=== PATIENT | male | born 1960 | race Caucasian/White ===

== ENCOUNTER 2023-07-19 08:36 | Outpatient (CLI) | payer MEDICARE, SELFPAY ==
--- NOTE | ~2023-07-19 | XR_ITS ---
EXAMINATION: XR lg joint inject/asp w image DATE: 07/19/2023 09:21 INDICATION: Right shoulder pain with osteoarthritis TECHNIQUE: A time-out was performed to verify the patient's name, date of , and procedure to b e performed. The procedure including the risks, benefits, and alternatives was discussed with the pat ient. Risks discussed included bleeding and infection. The patient understood the risks and agreed to proceed. The skin overlying the rotator cuff interval of the right glenohumeral joint was prepped a nd draped in usual sterile fashion. Anesthetic was administered with 1% lidocaine subcutaneously. A 22 G needle was advanced under fluoroscopic guidance into the joint. Injection of 1 mL of Omnipaque 240 confirmed intra-articular position of the needle. Subsequently, injectate consisting of 5 mm a 4:1 mixture of 1% lidocaine: 80 mg/mL Depo-Medrol for a total dosage of 80 mg Depo-Medrol was instill ed. Washout of contrast was seen confirming intra-articular administration. The needle was removed an d the entry site was cleaned and dressed. There were no immediate complications. Fluoroscopy exposur e time was 0.1 minutes. The total number of images was 2. Total DAP was 0.374 Gycm^2 FINDINGS: Real-time fluoroscopy demonstrates the needle in the right glenohumeral joint. Patient's pa in prior to procedure:12/06. Patient's pain following the procedure: 06/08. IMPRESSION: 1. Successful right glenohumeral joint injection of local anesthetic and steroid with decrease in the patient's presenting pain. Reviewed, dictated and finalized at location A. CE CLERK IMPRESSION: 1. Successful right glenohumeral joint injection of local anesthetic and steroi d with decrease in the patient's presenting pain.
== END 2023-07-19 08:37 | disposition home or self-care (01) ==
PROVIDERS: PCP Internal Medicine Infectious Disease; Visit Provider Orthopaedic Surgery
DX: M19.011 Primary osteoarthritis, right shoulder (principal)
CPT/HCPCS: 20610; 77002; J1040; Q9966

== ENCOUNTER 2024-07-03 16:49 | Inpatient (IN) | payer MEDICARE, SELFPAY ==
[2024-07-03] VITALS (20 sets, daily range): BP systolic 105–145; BP diastolic 60–94; PULSE 97–131; RESP 19–28; TEMP 36.9–37.2; O2SAT 91–100; BMI 27.3
--- NOTE | ~2024-07-03 | CT_ITS ---
EXAMINATION: CTA chest PE protocol DATE: 07/04/2024 21:31 HEARING AIDE TECHNICIAN INDICATION: Shortness of breath and COPD. Pulmonary embolus suspected clinically TECHNIQUE: Computed tomographic angiography (CTA) of the chest was performed with 100 mL Omnipaque-35 0 intravenous contrast. The dose-length product was 755.71 mGy-cm. Maximum intensity projection 3D-re constructions of the aorta and other arteries were constructed by the technologist on a separate work station. COMPARISON: Reference is made with a plain view of the chest performed approximately 24 hours earlier FINDINGS: No filling defect within the main or proximal pulmonary arteries. The thoracic aorta is nonaneurysmal and no dissection is present. The main pulmonary artery is not enlarged. The heart is enlarged, without pericardial effusion. Panlobular emphysematous disease identified with a bilateral upper lobe distribution. Multiple pulmonary cysts detected within the right lung base. Small right-sided pleural effusion with adjacent compressive atelectasis. Round atelectasis is also suspected. Left-sided pleural thickening. The remainder of the left hemithorax is primarily clear. IMPRESSION: No pulmonary embolus. No thoracic aortic dissection. Panlobular emphysematous change with additional chronic pulmonary disease. Reviewed, dictated and finalized at location A. ING AIDE TECHNICIAN
--- NOTE | ~2024-07-03 | XR_ITS ---
CHEST RADIOGRAPH CLINICAL HISTORY: SOB . COMPARISON: None available TECHNIQUE: Single portable view of the chest. FINDINGS The cardiomediastinal silhouette is unremarkable. Significant peribronchial thickening is identified bilaterally. Panlobular emphysematous disease is suspected. Asymmetric density within the right mid to lower lung field for which cross-sectional imaging (noncon trast enhanced CT examination of the chest) is suggested when patient is clinically able. IMPRESSION: Peribronchial thickening with panlobular emphysematous disease. No focal infiltrate or effusion. Asymmetric density within the right mid to lower lung field for which cross-sectional imaging (noncon trast enhanced CT examination of the chest) is suggested when patient is clinically able. Reviewed, dictated and finalized at location A. AIN STRETCHER ASSEMBLER IMPRESSION: Peribronchial thickening with panlobular emphysematous disease. No focal infiltrate or effusion. Asymmetric density within the right mid to lower lung field for which cross-sec tional imaging (noncontrast enhanced CT examination of the chest) is suggested when patient is clinically able.
--- NOTE | 2024-07-03 17:02 | ECG_ITS ---
Test Date: 2024-07-03 16:59:51 Measurements Intervals [place] Rate: 98 P: 0 LA: 0 QRS: 58 QRSD: 101 T: 78 QT: 332 QTc: 425 Interpretive Statements ATRIAL FLUTTER BORDERLINE T WAVE ABNORMALITY- ANTERIOR LEADS BASELINE ARTIFACT- I, III, AVL, AVF ABNORMAL ECG No previous ECG available for comparison Electronically Signed On 07-04-2024 13:36:17 SHELL TRIM OPERATOR by Blake Mathis D.O.
[2024-07-03 17:11] LABS: Basophils Percent Auto 0.3 % (0.2-1.2); Eosinophils Percent Auto 0.2 % (0-4.4); Hematocrit 38.5 % (42.0-52.0); Hemoglobin 11.6 g/dL (14.0-18.0); Immature Granulocyte Absolute 0.05 K/mm3 (0.00-0.031); Immature Granulocyte Percent A 0.6 % (0-0.5); Lymphocytes Absolute Auto 0.97 K/mm3 (0.9-3.2); Mean Corpuscular HGB Conc 30.1 g/dl (32-36); Mean Corpuscular Hemoglobin 30.9 pg (26-34); Mean Corpuscular Volume 102.7 fl (80-100); Mean Platelet Volume 10.5 fl (7.4-10.4); Monocytes Absolute Auto 0.5 K/mm3 (0.1-0.6); Monocytes Percent Auto 5.9 % (2.6-8.5); Neutrophils Absolute Auto 7.2 K/mm3 (1.3-6.7); Platelet Count Result 173 k/mm3 (150-375); Red Blood Count 3.75 M/mm3 (4.6-6.20); Red Cell Distribution Width 15.2 % (11.5-14.5); White Blood Count 8.8 K/mm3 (4.5-10.0)
[2024-07-03 17:13] LABS: Alveolar/Arterial O2 Gradient 119.5 mmHg; Base Excess ABG -0.4 mEq/l (+/-2.0); Fractional Inspired Oxygen 40 %; HCO3 ABG 27.4 mEq/l (22.0-26.0); Oxygen Content ABG 15.4 %vol (16.0-22.0); Oxygen Saturation ABG 96.3 % (95.0-100.0); Oxyhemoglobin 93.7 % THb (90.0-100.0); Total Hemoglobin 11.6 g/dL (12.0-18.0)
[2024-07-03] MEDS: methylPREDNISolone SOD SUCC 125 MG VIAL IV PUSH (17:13)
[2024-07-03 17:15] LABS: Device BIPAP; Modified Allen's Test Pass; PCO2 ABG 60.6 mmHg (35.0-45.0); Site Drawn RIGHT RADIAL; pH ABG 7.273 (7.350-7.450)
[2024-07-03] MEDS: MAGNESIUM SULF 2 GM/WATER 50ML 2 GM/50 ML BAG IVPB (17:15)
[2024-07-03] MEDS: IPRATROPIUM 0.5 MG/ALBUTEROL SULFATE 2.5 MG AMPUL.NEB 3 ML 6 ML INHALATION ×3 (17:15→17:53)
[2024-07-03 17:16] LABS: Expiratory Pressure 8 cmH2O; Inspiratory Pressure 16 cmH2O
--- OUTSIDE RECORDS SUMMARY | 2024-07-03 17:28 | XMS_ITS | Clinical Summary ---
Author Organization [facility] Address [address] [place] [address] Care Team Providers Care As400 Analyst Name Role Phone Shala Diaz MD Primary Care Provider Ben Lindsay MD Unavailable Source Comments [facility],non-owned Affiliates and Associated Physician Practices is amultiple site organization consisting of ambulatory clinics and hospital sitesin [place], [place], [place] and [place]. This disclosure is being madepursuant to the Care Everywhere program and may not contain all information available regarding this patient. Last updated 18.[facility] Allergies Active Allergy Reactions Criticality Noted Date Comments Piroxicam Other High 12/17/2013 Ulcer Other reaction(s): Other Ulcer Medications * Be aware that medications may not be up to date on this document. Alwaysverify current medications with the patient. Medication Sig Dispensed Refills Start Date End Date Status albuterol HFA (VENTOLIN HFA) 108 (90 Base) MCG/ACT inhaler Inhale 2 puffs by mouth as needed 06/25/2016 Active amLODIPine (NORVASC) 10 MG tablet Take 10 mg by mouth once daily Active budesonide-formot annalise (SYMBICORT) 160-4.5 MCG/ACT inhaler Inhale 2 puffs by mouth once daily Active furosemide (LASIX) 40 MG tablet Take 40 mg by mouth once daily 07/28/2019 Active ibuprofen (MOTRIN) 400 MG tablet Take 400 mg by mouth 2 times daily 07/30/2019 Active INCRUSE ELLIPTA 62.5 MCG/INH inhaler Inhale 1 puff by mouth once daily 07/28/2019 Active cyanocobalamin (VITAMIN B-12) 1000 MCG tabletIndications :Low serum vitamin B12 Take 1 tablet by mouth once daily 100 tablet 05/19/2020 Active buPROPion XL 24hr (WELLBUTRIN-XL) 300 MG tablet Take 300 mg by mouth 3 times daily 06/19/2020 Active losartan (COZAAR) 25 MG tablet Take 25 mg by mouth once daily 12/05/2020 Active EQ Aspirin Adult Low Dose 81 MG tablet Take 1 (one) tablet by mouth once daily 01/01/2023 Active atorvastatin (Lipitor) 80 MG tablet Take 1 (one) tablet by mouth once daily 02/20/2023 Active buPROPion HCl ER, XL, 450 MG TAKE 1 BY MOUTH ONCE DAILY 05/02/2023 Active buPROPion XL 24hr (Wellbutrin-XL) 150 MG tablet Active clopidogrel (plaVIX) 75 MG tablet Take 1 (one) tablet by mouth once daily 01/01/2022 Active cyclobenzaprine (Flexeril) 10 MG tablet TAKE 1 TABLET BY MOUTH THREE TIMES DAILY NEEDED FOR 14 DAYS Active Trulicity 0.75 MG/0.5ML injection INJECT 1 SYRINGE SUBCUTANEOUSLY ONCE A WEEK 05/08/2023 Active FLUoxetine (PROzac) 20 MG capsule 4 capsules Orally Once a day for 30 days Active gabapentin (Neurontin) 600 MG tablet 1 tablet Orally Three times a day for 30 days Active ketoconazole (Nizoral) 2 % shampoo APPLY TOPICALLY TO THE AFFECTED AREA(S) LATHER, LEAVE IN PLACE FOR 5 MINUTES AND THEN RINSE OFF WITH WATER ONCE DAILY 07/28/2021 Active Viagra 100 MG tablet Take 1 TABLET BY MOUTH 1 HOUR PRIOR TO SEXUAL ACTIVITY DIRECTED, NOT TO EXCEED 1 IN 24 HOURS. 05/10/2023 Active topiramate (Topamax) 200 MG tablet Take 1 (one) tablet by mouth 2 times daily Active Active Problems Problem Noted Date Diagnosed Date Pain in joint of right shoulder 05/19/2023 06/06/2023 Encounter for general adult medical examination with abnormal findings 05/20/2021 06/06/2023 Overview (06/06/2023): Patient gave verbal consent to be seen today via telehealth visit prior to performing said visit. Patient provided name and date of as identification of self. Provider reviewed with member Notice of Privacy Practices prior to performing this visit. Patient stated they understood the Notice of Privacy Practices. Last Assessment & Plan: Condition: worsening depression and loneliness Follow up in: if symptoms worsen or fail to improve Degeneration of intervertebral disc of lumbar re gion 05/20/2021 06/06/2023 Overview (06/06/2023): M51.36 - Other intervertebral disc degeneration, lumbar region Added by RAMP Historical Conditions Last Assessment & Plan: Condition: stable Follow up in: one month Bipolar 2 disorder 05/20/2021 06/06/2023 Overview (06/06/2023): Last Assessment & Plan: Condition: currently depressed Last mental health visit within the last 3 months Medications: Taking medications as prescribed If taking medications, do not stop treatment without consulting healthcare provider. If symptoms worsen or do not improve/stabilize, notify health care provider right away. If thoughts of harming self or others notify health care provider immediately &/or seek urgent/emergent care including calling Suicide Hotline ( ) or 612. Follow up in if symptoms worsen or fail to improve with Psychologist/Counselor/SupportGroup/Psychiatrist Atherosclerosis of aorta 05/20/2021 024 Overview (06/06/2023): Last Assessment & Plan: Condition: stable Follow up in: six months Chronic bilateral low back pain with sciatica 06/06/2023 Overview (06/06/2023): Last Assessment & Plan: Condition: stable Take pain medication as prescribed. Practice non-pharmacological pain reduction techniques/interventions such as, deep breathing exercises, massage, gel packs, if indicated to be safe by PCP. Monitor for worsening of back pain in combination with other signs and symptoms of worsening disease and see PCP as soon as possible. Follow up in: if symptoms worsen or fail to improve Feeling lonely 05/20/2021 06/06/2023 Overview (06/06/2023): Last Assessment & Plan: Condition: worsening Follow up in: if symptoms worsen or fail to improve Major depressive disorder 05/20/20212023 Overview (06/06/2023): Last Assessment & Plan: Condition: symptomatic Last mental health visit 2-3 months ago Medications: Taking medications as prescribed If taking medications, do not stop treatment without consulting healthcare provider. If symptoms worsen or do not improve/stabilize, notify health care provider right away. If thoughts of harming self or others notify health care provider immediately &/or seek urgent/emergent care including calling Suicide Hotline ( ) or 233. Follow up in if symptoms worsen or fail to improve with Psychologist/Counselor/SupportGroup/Psychiatrist and PCP Poor dentition 05/20/2021 06/06/2023 Overview (06/06/2023): Last Assessment & Plan: Condition: worsening Follow up in: one month Spinal stenosis, lumbar region with neurogenic c laudication 05/20/2021 06/06/2023 Overview (06/06/2023): Last Assessment & Plan: Condition: stable Take pain medication as prescribed. Practice non-pharmacological pain reduction techniques/interventions such as, deep breathing exercises, massage, gel packs, if indicated to be safe by PCP. Monitor for worsening of back pain in combination with other signs and symptoms of worsening disease and see PCP as soon as possible. Follow up in: one month Marijuana user 05/20/2021 06/06/2023 Overview (06/06/2023): Last Assessment & Plan: Condition: stable Follow up in: as needed Body mass index (BMI) of 40.0-44.9 in adult 04/3006/06/2023 Overview (06/06/2023): Last Assessment & Plan: Condition: worsening Educated patient on normal BMI range of 18.5 to 24.9 Advised to monitor nutrition to not exceed caloric needs, or as indicated by PCP in order to maintain a healthy weight and BMI. Advised to engage in aerobic physical activity, if indicated to be safe by PCP, to assist with maintaining a healthy weight and BMI. Advised to follow up with PCP to address nutrition as needed to assist with reaching or maintaining a healthy weight and BMI. Follow up in: six months Arteriosclerosis of coronary artery 05/10/2021 06/06/2023 Overview (06/06/2023): Last Assessment & Plan: Condition: stable Follow up in: six months Mixed conductive and sensori neural hearing loss of left ear with restricted hearing of right ear 02/13/2021 Sensorineural hearing loss ( SNHL) of right ear with restricted hearing of left ear 02/13/2021 Mixed conductive and sensori neural hearing loss of left ear with restricted hearing of right ear 02/13/2021 06/06/2023 Overview (06/06/2023): Last Assessment & Plan: Condition: stable Follow up in: three months Edema 12/05/2020 06/06/2023 Chronic obstructive lung disease 11/25/2020 06/06/2023 Left chronic otitis media 08/11/2019 ETD (Eustachian tube dysfunction), left 08/11/19 20 Centrilobular emphysema 07/29/2016 Essential (primary) hypertension 07/29/2016 Morbid obesity due to excess calories 07/29/2016 MATTHEW (obstructive sleep apnea) 07/29/2016 SOB (shortness of breath) 07/29/2016 Centrilobular emphysema 07/29/2016 06/06/19 24 Overview (06/06/2023): Last Assessment & Plan: Condition: symptomatic Reviewed trigger avoidance and reviewed proper use of inhalers and rescue medications. Reviewed concerning signs/symptoms and ER precautions. Follow up in: if symptoms worsen or fail to improve MATTHEW (obstructive sleep apnea) 07/29/2016 Overview (06/06/2023): Last Assessment & Plan: Condition: stable Follow up in: one month Morbid obesity due to excess calories 07/29/2016 06/06/2023 Overview (06/06/2023): Last Assessment & Plan: Condition: stable Co-morbidities: N/A BMI > 40 and Hypertension Follow up in: three months Chronic obstructive pulmonary disease 02/10/2015 06/06/2023 Obesity 02/10/2015 06/06/2023 Nicotine dependence, unspecified, uncomplicated 12/18/2013 06/06/2023 Sleep apnea, unspecified 12/18/2013 024 Former smoker, stopped smoking in distant past 0 12/17/2013 06/06/2023 Overview (06/06/2023): Last Assessment & Plan: Condition: stable Follow up in: as needed Primary hypertension 12/17/2013 06/06/2023 Overview (06/06/2023): Last Assessment & Plan: Condition: stable Discussed target blood pressure. Continue medication as prescribed from PCP/specialist. Take medications at the same time every day. Lifestyle modification advised: DASH diet, reduce stress/anxiety, discussed health weight management, activity as tolerated or advised from PCP, try to avoid alcohol and nicotine. Follow up in: one month Shortness of breath 12/17/2013 06/06/2023 Overview (06/06/2023): Last Assessment & Plan: Condition: stable, on exertion Follow up in: if symptoms worsen or fail to improve Resolved Problems Problem Noted Date Diagnosed Date Resolved Date Ear drum perforation, left 08/11/2019 0 02/13/2021 Cough 07/29/2016 10/04/2019 Cough 07/29/2016 06/06/2023 07/04/2023 Overview (06/06/2023): Last Assessment & Plan: Condition: stable Follow up in: three months Immunizations Name Administration Dates Next Due INFLUENZA VACCINE, TRIV. (AF LURIA, FLUZONE TRIVALENT; 6MO+) (IIV3) 02/23/2016 COVID ELISHA PRIMARY 18+YR 09/11/2020 INFLUENZA VACCINE 02/12/2020,06/23/2019 TDAP (7yrs+) 04/25/2017 iNFLUENZA VACCINE, RECOM-ACE, QUADR. (FLUBLOCK QUADRIVALENT; 18Y+) (RIV4) 03/19/2020 Social History Tobacco Use Types Packs/Day Years Used Date Smoking Tobacco: Former Smokeless Tobacco: Never Alcohol Use Standard Drinks/Week Comments Yes 0 (1 standard drink = 0.6 oz pur e alcohol) 2 beers/week, or one shot AUDIT-C Answer Date Recorded Frequency of Alcohol Consumption Never 08/10/2019 Average Number of Drinks Not on file 020 Frequency of Binge Drinking Not on file 07/28 Sex and Gender Information Value Date Recorded Sex Assigned at Not on file Gender Identity Not on file Sexual Orientation Not on file Last Filed Vital Signs Vital Sign Reading Time Taken Comments Blood Pressure 123/80 02/13/2021 3:53 PM CDT Pulse 90 02/13/2021 3:53 PM CDT Temperature 36.4 ??C (97.6 ??F) 09/12/2020 9:07 AM CD T Respiratory Rate 13 08/27/2020 4:30 PM CDT Oxygen Saturation 93% 08/27/2020 5:16 PM CDT Inhaled Oxygen Concentration - - Weight 139.7 kg (308 lb) 02/13/2021 3:53 PM CDT Height 185.4 cm (6' 1 ) 02/13/2021 3:53 PM CDT Body Mass Index 40.64 02/13/2021 3:53 PM CDT Plan of Treatment Health Maintenance Due Date Last Done Comments COLOGUARD (AGES 45-75) - COLON CA SCREENING 1958 COLON MONITORING 1958 COLONOSCOPY - COLON CA SCREENING 1958 CT COLONOGRAPHY - COLON CA SCREENING 1960 Colorectal Cancer Screening 1958 FIT - COLON CA SCREENING 1958 FLEX SIG - COLON CA SCREENING 1958 HEPATITIS C SCREENING 03/06/1976 PNEUMOCOCCAL VACCINE 50+ (1 of 2 - PCV) 1977 ZOSTER VACCINE (1 of 2) 2008 Respiratory Syncytial Virus (RSV) Vaccine Pt: or over 60 yrs (1 - Risk 60-74 years 1-dose series) 2018 AAA SCREENING 2023 COVID-19 VACCINE (2 - season) 2024 09/11/2020 INFLUENZA VACCINE (#1) 2024 0, 02/12/2020, 06/23/2019, Additional history exists MEDICARE AWV ? CALENDAR YEAR 2024 DTAP/TDAP/TD VACCINES (2 - Td or Tdap) 04/25/2027 04/25/2017 HEPATITIS B VACCINE Aged Out No longe r eligible based on patient's age to complete this topic HIB VACCINE Aged Out No longer eligi ble based on patient's age to complete this topic HPV VACCINE Aged Out No longer eligi ble based on patient's age to complete this topic MENINGOCOCCAL (Group B) VACCINE Aged Out No longer eligible based on patient's age to complete this topic MENINGOCOCCAL VACCINE Aged Out No ly selam eligible based on patient's age to complete this topic Care Teams As400 Analyst Relationship Specialty [place] [address] [place] [phone] PCP - General 08/10/19 Ben Lindsay MD [facility] [address] [address] Cardiovascular Disease 07/08/23
--- OUTSIDE RECORDS SUMMARY | 2024-07-03 17:28 | XMS_ITS | Clinical Summary ---
Author Organization [facility] Facility Address [address] [place] [id number] Care Team Providers Care Sales Manager [place] Name Role Phone Shala Diaz MD Primary Care Provider [phone] Social History Tobacco Use Types Packs/Day Years Used Date Smoking Tobacco: Never Assessed Sex and Gender Information Value Date Recorded Sex Assigned at Not on file Legal Sex Male 10:30 AM EDT Gender Identity Not on file Sexual Orientation Not on file Plan of Treatment Health Maintenance Due Date Last Done Comments Pneumococcal Vaccine: 65+ Years (1 of 2 - PCV) 1964 Colorectal Cancer Screening: Annual FOBT 2007 Colorectal Cancer Screening: Colonoscopy 2007 Colorectal Cancer Screening: Sigmoidoscopy 2007 Influenza Vaccine (#1) 2024 0, 02/12/2020, 06/23/2019 Hepatitis B Vaccine Aged Out No longe r eligible based on patient's age to complete this topic Insurance [employer] MCR ADV HMO ([id number]) Care Teams Sales Manager [place] Relationship Specialty Start Date End Date Shala Diaz MD [address] [place] [address] PCP - General Internal Medicine 08/08/23
--- OUTSIDE RECORDS SUMMARY | 2024-07-03 17:28 | XMS_ITS | Data Portability ---
Author Organization [place] [facility], Main Office Address [address] [place] [address] Care Team Providers Care Appian Bpm Developer Name Role Phone SARA RUEDA Primary Care Provider SARA RUEDA Referring Provider [phone] Assessment Encounter Date Assessment Date Assessment LastModified by Organization Details LastModified Time 05/20/2023 05/20/2023 63-year-old male came in today for evaluation of his right shoulder pain. He injured his shoulder 2 weeks ago. He was bent down cleaning on floor when he lost his balance and fell forward. He landed on the right elbow and feels like he jammed his right shoulder. He had quite a bit of pain initially but it has improved. He has been taking ibuprofen, he was given ketorolac from his primary for 5 days to help with the symptoms in his shoulder as well as back pain that he has chronically. He has noticed that the shoulder is doing much better at this point it is only mildly symptomatic. Patient x-rays done of the right shoulder from his primary care doctor which I reviewed. It shows that he has moderately severe glenohumeral joint narrowing. There is a small inferior spur off the articular surface. No definite superior migration. Patient states that he was not having any pain in the shoulder up until this latest injury. He did have an injury to his shoulder when he was younger. Physical exam: 63-year-old male alert pleasant. He has active elevation to 145 external rotation is to 75 internal rotation is to L4. He has no discomfort with range of motion. He has good strength with external rotation as well as abduction in the right shoulder. He has a negative abdominal compression test. 2+ radial pulse in the wrist. Neck range of motion is full without discomfort. Negative Spurling's maneuver. Biceps muscle belly has normal contour. Impression: Patient has moderately severe glenohumeral joint osteoarthritis. It was recently aggravated from a fall and jam injury to the shoulder joint. It is improving quite a bit. We talked about options. He is going to continue with anti-inflammator ies at this point. We did talk about fluoroscopic guided injection in the glenohumeral joint if his symptoms become more intolerable. At this point he feels that his symptoms are improving and he is going to wait and see if he continues to improve. If does not he can call and we can set up the injection over the phone. Otherwise we will see him back as needed. [email or web address] Not available 05/20/2023 12:43:28 06/21/2024 06/21/2024 Time spent with patient included: preparing to see patient by reviewing tests, obtaining and reviewing history, medical examination and evaluation, counseling and educating the patient, ordering medications and tests, documenting clinical information in EHR, independently interpreting results and communicating results to the patient for a total of 50 minutes. [email or web address] Not available 06/21/2024 16:18:22 Plan of Treatment Reminders Order Date Submit Date Provider Last Modified By Organization Details Last Modified Time Details Appointments Any 30 2024 01:30P M Deepthi Miller NP Not available Not available Not available Lab None recorded. Referral None recorded. Procedures None recorded. Surgeries None recorded. Imaging CT, chest, w/ contrast - Please call patient to schedule. 2024 025 [facility] ([facility]), [address] [place] [address], [address], 06/25/2024 13:10:46 Medication Orders Dulera 200 mcg-5 mcg/actua tion HFA aerosol inhaler 2024 025 [facility], [address] [place], [address], 06/21/2024 15:53:54 Incruse Ellipta 62.5 mcg/actua tion powder for inhalatio n 2024 025 [facility], [address] [place], [address], 06/21/2024 15:53:56 Patient TargetsNo targets recorded. Patient InstructionsNo instructions recorded. Reason for Referral None Reported. Results Created Date Observation Date Name Description Value Unit Range Abnormal Flag Note LastModifiedBy Organization Detail LastModifiedTime 10/15/19 21 07/23/2019 LDCT, chest , for lung cance r scree flaquita No observ ation record ed. [id number] Not Available 07/28/2022 16:25:50 10/15/19 21 03/08/2016 home sleep study No observ ation record ed. [id number] Not Available 07/28/2022 16:25:50 11/26/19 21 11/21/2020 US, echoc ardio gram, trans thora cic, compl ete, w/ color flow No observ ation record ed. [id number] [facility] (Imaging) [address] [place], [address], 07/28/2022 16:25:50 01/08/20 21 12/28/2020 BIPAP titra tion study * No observ ation record ed. [id number] [facility]- [facility] [address] [place], [address], 07/28/2022 16:25:50 05/10/20 23 04/25/2023 XR, shoul josefa No observ ation record ed. [email or web address] Not Available 04/29 10:56:31 07/19/19 24 07/19/2023 injec tion, shoul josefa, fluor o liliana nce (PROC ) No observ ation record ed. [facility] [address], [place], [address], 07/20/2023 13:12:55 06/20/19 25 06/15/2021 LDCT, chest , for lung cance r scree flaquita No observ ation record ed. [facility] Not Available 2024 17:23:13 06/20/19 25 10/27/2022 LDCT, chest , for lung cance r scree flaquita No observ ation record ed. [facility] Not Available 2024 17:23:13 06/20/19 25 05/25/2024 CT, angio gram, chest , w/ contr ast No observ ation record ed. [facility] Not Available 2024 17:23:13 06/20/19 25 05/31/2024 CT, angio gram, abdom en + pelvi s, w/wo contr ast No observ ation record ed. [facility] Not Available 2024 17:23:13 Result Notes None recorded. Problems Name Problem SNOMED Code Status Onset Date Resolution Date Notes Provider Name and Address Organization Details Recorded Time Chronic obstructiv e pulmonary disease 94294862 Active 2020 Not Available [facility] 3 16:25:15 Sleep apnea 85594507 Active 2019 Not Available [facility] 3 16:25:15 Pain of right shoulder joint 0983135000330 9100 Active 2022 DELVIS White null, [employer] 3 10:41:48 Localized, primary osteoarthr itis of the shoulder region 882468189 Active 2023 Sara Rolle CMA null, [employer] 4 16:47:53 Mediastina l lymphadeno lorraine 22742331 Active 2024 Deepthi Miller NP [address], [address] [facility], [place], [address] , [employer] 5 15:46:06 Pneumonia 584484352 Active 2024 Deepthi Miller NP [address], [address], [place], [address] , [employer] 5 15:51:57 Chronic atrial fibrillati on 272945947 Active 2024 Deepthi Miller NP [address], [address], [place], [address] , [employer] 5 16:22:30 Problem Notes None recorded. Procedures Surgical History Date Name Laterality Status Provider Name and Address Organization Details Recorded Time Knee Surgery completed Cara Landrum, DELVIS [facility] 05/20/2023 10:40:01 procedure on elbow completed Carateodoro Landrum DELVIS [facility] 05/20/2023 10:40:09 Ear completed Cara Landrum DELVIS [facility] 05/20/2023 10:40:19 Imaging Results Imaging Date Name Status LastModified by Organiz ation Details LastModified Time 07/23/2019 LDCT, chest, for lung cancer screening completed [id number] Information not available 07/28/2022 16:25:50 03/08/2016 home sleep study completed [id number] Information not available 07/28/2022 16:25:50 11/21/2020 US, echocardiogram , transthoracic, complete, w/ color flow completed [id number] [facility] (Imaging) [address] [place], [address], 07/28/2022 16:25:50 12/28/2020 BIPAP titration study* completed [id number] [facility]- [address] [place], [address], 07/28/2022 16:25:50 04/25/2023 XR, shoulder completed [email or web address] Information not available 05/10/2023 10:56:31 07/19/2023 injection, shoulder, fluoro guidance (PROC) completed [address] [place] [address], [address], 07/20/2023 13:12:55 06/15/2021 LDCT, chest, for lung cancer screening completed [facility] Information not available 06/20/2024 17:23:13 10/27/2022 LDCT, chest, for lung cancer screening completed [facility] Information not available 06/20/2024 17:23:13 05/25/2024 CT, angiogram, chest, w/ contrast completed [facility] Information not available 06/20/2024 17:23:13 05/31/2024 CT, angiogram, abdomen + pelvis, w/wo contrast completed [facility] Information not available 06/20/2024 17:23:13 Procedure Notes None recorded. Medical Equipment None Reported. Medications Name Sig Start Date Stop Date Status Note LastModified by Organization Details LastModified Time losartan 50 mg tablet TAKE 1 TABLET BY MOUTH ONCE DAILY 06/21 completed Not Available Not Available Not Available cyclobenzap rine 10 mg tablet TAKE 1 TABLET BY MOUTH THREE TIMES DAILY NEEDED FOR 14 DAYS active Not Available Not Available No t Available amoxicillin 500 mg capsule TAKE 1 CAPSULE BY MOUTH THREE TIMES DAILY UNTIL GONE 11/25 completed Not Available Not Available Not Available furosemide 40 mg tablet TAKE 1 TABLET BY MOUTH ONCE DAILY active Not Available Not Available No t Available neomycin-po lymyxin-hyd rocort 3.5 mg/mL-10,00 0 unit/mL-1 % ear solution 04/14 completed Not Available Not Available Not Available atorvastati n 80 mg tablet TAKE 1 TABLET BY MOUTH ONCE DAILY 05/20 completed Not Available Not Available Not Available gabapentin 600 mg tablet TAKE 1 TABLET BY MOUTH THREE TIMES DAILY 06/21 completed Not Available Not Available Not Available azithromyci n 250 mg tablet TAKE 2 TABLETS BY MOUTH ON DAY 1, AND THEN TAKE 1 TABLET BY MOUTH ONCE A DAY ON DAY 2 THROUGH DAY 5 05/20 completed Not Available Not Available Not Available ibuprofen 800 mg tablet TAKE 1 TABLET BY MOUTH EVERY 8 HOURS NEEDED FOR PAIN 05/12 completed Not Available Not Available Not Available ofloxacin 0.3 % eye drops 05/12 completed Not Available Not Available Not Available hydrocodone 5 mg-acetamin ophen 325 mg tablet TAKE 1 TABLET BY MOUTH EVERY 6 HOURS NEEDED FOR PAIN 05/12 completed Not Available Not Available Not Available prednisone 20 mg tablet TAKE 2 TABLETS BY MOUTH ONCE DAILY DIRECTED FOR 5 DAYS 06/21 completed Not Available Not Available Not Available dofetilide 125 mcg capsule 06/21 completed Not Available Not Available Not Available topiramate 25 mg tablet 04/14 completed Not Available Not Available Not Available diltiazem CD 360 mg capsule,ext ended release 24 hr TAKE 1 CAPSULE BY MOUTH ONCE DAILY active Not Available Not Available No t Available sulfamethox azole 800 mg-trimetho prim 160 mg tablet TAKE 1 TABLET BY MOUTH TWICE DAILY 05/12 completed Not Available Not Available Not Available aspirin 81 mg tablet,singh yed release TAKE 1 TABLET BY MOUTH ONCE DAILY 06/21 completed Not Available Not Available Not Available sildenafil 100 mg tablet Take 1 TABLET BY MOUTH 1 HOUR PRIOR TO SEXUAL ACTIVITY DIRECTED, NOT TO EXCEED 1 IN 24 HOURS. 06/21 completed Not Available Not Available Not Available ketorolac 10 mg tablet 06/21 completed Not Available Not Available Not Available ofloxacin 0.3 % ear drops INSTILL 5 DROPS INTO LEFT EAR TWICE DAILY UNTIL GONE 05/12 completed Not Available Not Available Not Available betamethaso ne valerate 0.1 % topical cream APPLY A THIN LAYER TOPICALLY ONCE DAILY TO AFFECTED AREAS 05/12 completed Not Available Not Available Not Available sulfacetami de sodium 10 % eye drops 04/14 completed Not Available Not Available Not Available baclofen 10 mg tablet 04/14 completed Not Available Not Available Not Available amlodipine 10 mg tablet TAKE 1 TABLET BY MOUTH ONCE DAILY 06/21 completed Not Available Not Available Not Available benzonatate 100 mg capsule Take 1 capsule 3 times a day by oral route. active Not Available Not Available No t Available pyridostigm ine bromide 60 mg tablet TAKE 1 2 (ONE HALF) TABLET BY MOUTH TWICE DAILY FOR 7 DAYS THEN 1 TWICE DAILY . PLEASE STOP TAKING TWO DAYS BEFORE SCHEDULED NERVE CONDUCTIO 10/09 completed Not Available Not Available Not Available losartan 25 mg tablet TAKE 1 TABLET BY MOUTH ONCE DAILY 06/21 completed Not Available Not Available Not Available ibuprofen 400 mg tablet TAKE 1 TABLET BY MOUTH ONCE DAILY NEEDED 05/12 completed Not Available Not Available Not Available gabapentin 300 mg capsule 04/14 completed Not Available Not Available Not Available topiramate 200 mg tablet TAKE 1 TABLET BY MOUTH TWICE DAILY active Not Available Not Available No t Available furosemide 20 mg tablet 04/14 completed Not Available Not Available Not Available levofloxaci n 750 mg tablet TAKE 1 TABLET BY MOUTH ONCE DAILY DIRECTED FOR 5 DAYS 06/21 completed Not Available Not Available Not Available methylpredn isolone 4 mg tablets in a dose pack TAKE BY MOUTH DIRECTED ON INSIDE OF PACKAGE 05/20 completed Not Available Not Available Not Available cefdinir 300 mg capsule 04/14 completed Not Available Not Available Not Available topiramate 100 mg tablet 04/14 completed Not Available Not Available Not Available fluoxetine 20 mg capsule TAKE 4 CAPSULES BY MOUTH ONCE DAILY 06/21 completed Not Available Not Available Not Available clotrimazol e 1 % topical cream 05/12 completed Not Available Not Available Not Available amoxicillin 875 mg-potassiu m clavulanate 125 mg tablet TAKE 1 TABLET BY MOUTH TWICE DAILY WITH MORNING MEAL AND WITH EVENING MEAL FOR 7 DAYS 10/09 completed Not Available Not Available Not Available Ventolin HFA 90 mcg/actuati on aerosol inhaler INHALE 2 PUFFS BY MOUTH EVERY 4 TO 6 HOURS NEEDED active Not Available Not Available No t Available oxycodone 5 mg tablet 05/12 completed Not Available Not Available Not Available neomycin-po lymyxin-hyd rocort 3.5 mg-10,000 unit/mL-1 % ear drops,susp 05/12 completed Not Available Not Available Not Available bupropion HCl XL 300 mg 24 hr tablet, extended release TAKE 1 TABLET BY MOUTH ONCE DAILY IN THE MORNING 11/25 completed Not Available Not Available Not Available bupropion HCl XL 150 mg 24 hr tablet, extended release active Not Available Not Available Not Available topiramate 50 mg tablet 04/14 completed Not Available Not Available Not Available [employer] USE DIRECTED 05/12 completed Not Available Not Available Not Available ibuprofen active Not Available Not Margarita ilable Not Available furosemide 06/21 completed Not Available Not Available Not Available Tylenol 06/21 completed Not Available Not Available Not Available gabapentin 06/21 completed Not Available Not Available Not Available aripiprazol e 2 mg tablet TAKE 1 TABLET BY MOUTH ONCE DAILY active Not Available Not Available No t Available Symbicort 160 mcg-4.5 mcg/actuati on HFA aerosol inhaler INHALE 2 PUFFS BY MOUTH TWICE DAILY active Not Available Not Available No t Available Dulera 200 mcg-5 mcg/actuati on HFA aerosol inhaler INHALE 2 PUFFS BY MOUTH TWICE DAILY active Not Available Not Available No t Available bupropion HCl XL 450 mg 24 hr tablet, extended release TAKE 1 TABLET BY MOUTH ONCE DAILY 05/12 completed Not Available Not Available Not Available Eliquis 5 mg tablet TAKE 1 TABLET BY MOUTH TWICE DAILY active Not Available Not Available No t Available Breo Ellipta 100 mcg-25 mcg/dose powder for inhalation INHALE 1 PUFF BY MOUTH ONCE DAILY DIRECTED 06/21 completed Not Available Not Available Not Available Trulicity 0.75 mg/0.5 mL subcutaneou s pen injector INJECT 1 SYRINGE SUBCUTANE OUSLY ONCE A WEEK 06/21 completed Not Available Not Available Not Available Incruse Ellipta 62.5 mcg/actuati on powder for inhalation INHALE 1 PUFF BY MOUTH ONCE DAILY 2024 active Not Available Not Available Not Avai lable Flublok Quad (PF) 180 mcg (45 mcg x 4)/0.5 mL IM syringe 10/09 completed Not Available Not Available Not Available Vitals Date Recorded Body mass index (BMI) Body mass index (BMI) Body height Body height Oxygen saturation Oxygen saturation in Arterial blood by Pulse oximetry Oxygen saturation Oxygen saturation in Arterial blood by Pulse oximetry Heart rate Heart rate Body temperature Body temperature Body weight Body weight Systolic blood pressure Diastolic blood pressure Systolic blood pressure Diastolic blood pressure Provider Name and Address Organization Details Last Updated DateTime 3 39.7 kg/m2 40.5 kg/m2 185.42 cm 185.42 cm 96 % 96 % 97 % 97 % 87 /min 77 /min 98.3 [degF] 97.8 [degF] 647186. 3 g 622255. 86 g 135 mm[Hg] 91 mm[Hg] 132 mm[Hg] 70 mm[Hg] Not Available [employer] 3 16:25:09 Date Recorded Body height Body mass index (BMI) Body weight Provider Name and Address Organization Details Last Updated DateTime 05/20/2023 182.88 cm 30 kg/m2 603698.91 g DELVIS White [place] [employer] [facility] [employer] 05/20/2023 10:47:33 Date Recorded Body weight Body temperature Heart rate Oxygen saturation Oxygen saturation in Arterial blood by Pulse oximetry Inhaled oxygen flow rate Systolic blood pressure Diastolic blood pressure Provider Name and Address Organization Details Last Updated DateTime 5 21314.6 2 g 97.7 [degF] 58 /min 96 % 96 % 2 L/min 108 mm[Hg] 62 mm[Hg] Jenny Basilio MA [employer] 5 15:32:29 Social History Question Answer Notes LastModified by Organizat ion Details LastModified Time Tobacco Smoking Status Former Smoker Not Available [facility] 07/28/2022 16:24:58 What Is Your Level Of Alcohol Consumption? None [id number] Information not available 07/28/2022 In The 14 Days Before Symptom Onset, Have You Had Close Contact With A Laboratory-confir med COVID-19 While That Case Was Ill? No [id number] Information not available 07/28/2022 In The 14 Days Before Symptom Onset, Have You Had Close Contact With A Person Who Is Under Investigation For COVID-19 While That Person Was Ill? No [id number] Information not available 07/28/2022 Which Illicit Or Recreational Drugs Have You Used? Marijuana [id number] Information not available 07/28/2022 Do You Or Have You Ever Used E-cigarettes Or Vape? Never Used Electronic Cigarettes [id number] Information not available 07/28/2022 What Was The Date Of Your Most Recent Tobacco Screening? 11/25/2020 [id number] Information not available 07/28/2022 Do You Or Have You Ever Used Smokeless Tobacco? Never Used Smokeless Tobacco [id number] Information not available 07/28/2022 Sex: Unknown Functional Status None recorded. Mental Status None recorded. Family History Relationship Description Onset Age of this Age Resolved Age Notes LastModified by Organization Details LastModified Time Father Family history of malignant neoplasm [email or web address] Not available 2022 10:39:45 Mother Family history of malignant neoplasm [email or web address] Not available 2022 10:39:45 Medical History Condition Response COPD Y ARTHRITIS Y USE OF BLOOD THINNERS Y Immunizations Vaccine Type Date Status Note Provider Nam e and Address Organization Details Recorded Time COVID-19 vaccine, vector-nr, rS-Ad26, PF, 0.5 mL 09/11/2020 completed Not Available [facility] 16:25:48 Influenza, high-dose, trivalent, PF 06/21/2024 completed Deepthi Miller NP [address] [facility], [facility] [address], [place], [address], [facility] [employer] [facility] 06/21/2024 16:17:26 Past Encounters Encounter ID Performer Location Encounter Start Date Encounter Closed Date Diagnosis/Indication Diagnosis SNOMED-CT Code Diagnosis ICD10 Code Diagnosis Note [id number] [facility] [address] [place] [address] 10/09/2020 00:00:00 10/09/2020 15:15:45 [id number] [facility] [address] [place] [address] 11/25/2020 00:00:00 11/25/2020 14:11:01 [id number] JUANPABLO Hoskins [facility] [address] [place] [address] 05/20/2023 10:06:56 05/20/2023 13:02:38 Pain of right shoulder joint 0339884019 9880489 M25.576 [id number] Deepthi Miller NP [facility] [place] [id number] [facility], [facility] [address] [place] [address] 06/21/2024 15:02:11 06/25/2024 15:52:26 Mediastinal lymphadenopathy 19630959 R59.[address]-most likely reactionar y from pneumonia- will repeat due to hx of heavy smoker 2.25 ppd x 35 years Chronic ob structive pulmonary disease 31397772 J44.9 CAT-34MMRC -4O2 2 L NC continousC ompliance with Incruse and Dulera (switched from Symbicort off formulary) and use discussed- rinse mouth afterUse Albuterol inhaler as neededWill hold off PFT and lab work till next follow-up due to recovery from pneumoniaE ncourage to maintain vaccines when due-influe nza todayF/u with PMD for any new labsF/u with me in 1 month-Symb icort use-will call if needs Albuterol (has some at home)Aware to call if any changes in symptoms or increase in use of Albuterol- severe symptoms ER Pneumonia 537575061 J18. 9 Admitted 05/25 for pneumonia- CT at that time showed mediastina l and hilar lymphadeno lorraine-will repeat CT to monitor-wi ll remain on O2 2 L NC Dependence on supplemental oxygen 4363477922 07 Z99.81 O2 2L NC Sleep apnea 03265834 G47 .30 ESS-2Lost weight and notes less issues with breathing- stopped using CPAP a couple of years agoO2 2 L NC at night Administra tion of influenza vaccine 13904870 Z23 Ex-heavy c igarette smoker (20-39/day) 045317360 Z87.891 Chronic at rial fibrillation 233618212 I48.20 on Eliquis and Cardizem Health Concerns Section Related Observation LastModified by Organization Detai ls LastModified Time None Recorded Concern Status LastModified by Organization Details LastModified Time None Recorded Advance Directives Directive None Recorded Payers Encounter Date Sequence Insurance Name Policy Number Policy Castellano Covered Member ID Castellano Member ID Guarantor Name 05/20/2023 1 [employer] - PRIME (MEDICARE REPLACEMENT/A DVANTAGE - HMO) [id number] Jose E Scaggs [id number] Jose Scaggs 05/20/2023 2 MEDICAID-[place]: [facility] Jose Scaggs [id number] Jose Scaggs 06/21/2024 1 [employer] - PRIME (MEDICARE REPLACEMENT/A DVANTAGE - HMO) [id number] Jose E Scaggs [id number] Jose Scaggs Notes Date Note Type Note Provider Name and Address Organization Details Recorded Time 06/21/2024 text/html COPDReported bypatient.Quality: symptoms worse with lying down Severity:very limiting; moderate; uses nebulizer/inhaler an average of 12 times/week lately; admitted to hospital 1 times/year Duration:has noted for years Onset/Timing:chron ic: suddenly much worse Context:cigarette smoking; occupational exposure; influenza vaccine 2024; pneumococcal pneumonia vaccine ? Modifying Factors:relieved with oxygen; worse in a supine position; worse with exertion Associated Symptoms:no snoring; no excessive daytime sleepiness; no arousals from sleep; no decrease in exercise capacity; no coughing up sputum; no fever; no weight loss; no depression;dyspnea exertional;decreas e in exercise capacity;fatigue;c oughing up sputum green;cough loose;wheezing exertional; less sputum since admission but continues to cough up a lot especially at nightNotes:Admitte d 05/25 for pneumonia and exacerbation COPD-went home on O2 2L NC2.25 ppd smoker 35 years+occupational exposure at [employer] hand smoke exposure as a child Deepthi Miller, MAKENZIE [address] [facility], [facility] [address], [place], [address], [facility] 06/21/2024 16:23:13
--- OUTSIDE RECORDS SUMMARY | 2024-07-03 17:28 | XMS_ITS | Referral Summary ---
Author Organization [facility] Address [address] [place] [address] Care Team Providers Care Press Room Supervisor Name Role Phone Shala Diaz MD Primary Care Provider Ben Lindsay MD Unavailable Source Comments [facility],non-owned Affiliates and Associated Physician Practices is amultiple site organization consisting of ambulatory clinics and hospital sitesin [place], [place]. This disclosure is being madepursuant to the Care Everywhere program and may not contain all information available regarding this patient. Last updated 18.[facility] Allergies Active Allergy Reactions Criticality Noted Date [...] including calling Suicide Hotline ( ) or 292. Follow up in if symptoms worsen or [...] including calling Suicide Hotline ( ) or 122. Follow up in if symptoms worsen or [...] 02/13/2021 3:53 PM CDT Plan of Treatment Not on file Care Teams Press Room Supervisor Relationship Specialty Start Date End Date Shala Diaz MD [address] [place] [address] [phone] PCP - General 08/10/19 Ben Lindsay MD [facility] [address] [address] Cardiovascular Disease 07/08/23
--- OUTSIDE RECORDS SUMMARY | 2024-07-03 17:29 | XMS_ITS | CONTINUITY OF CARE DOCUMENT ---
Author Name katina ambriz Address Unknown Organization [facility] Address [address] [place] [address] Phone [phone] Care Team Providers Care County Director Name Role Phone Neftali WHITNEY, Ben Unavailable SARA RUEDA MD Unavailable SARA RUEDA MD Unavailable PROBLEMS Condition Status Date Provider Notes Shortness of breath active Bne Lindsay MD Sleep apnea severe starting BIPAP active Ben Lindsay MD HTN essential--echo ef 61%, LVH, 11/2020 active Jose Cannon Tobacco abuse 40 pack years , quit 2013 active Ben Lindsay MD Obesity active Ben Lindsay MD COPD severe obstruction on PFTS 12/11 active Ben Lindsay MD Chest pain-t abnormal stress nuclear 01/2021 completed - Ben Lindsay MD Edema-BLE active Ben Lindsay MD CAD difffuse dital circ, 50% prox, 30% mid RCA, 30% mid LAD, nl ef, mild pulm HTN , cath 03/2021 active Ben Lindsay MD Diastolic CHF active Ben Lindsay MD Atrial fibrillation active Jazmín Ventimigl ia [employer] ENCOUNTERS Date Type Provider Location Encounter Diag nosis - In-person encounter Office Visit Ben Lindsay MD [facility] Atrial fibrillation - In-person encounter Office Visit Ben Lindsay MD [facility] - In-person encounter Office Visit Ben Lindsay MD [facility] HTN essential--echo ef 61%, LVH, iastolic CHF - In-person encounter Office Visit Ben Ordoñez In Patient Chest pain-t abnormal stress nuclear AD difffuse dital circ, 50% prox, 30% mid RCA, 30% mid LAD, nl ef, mild pulm HTN , cath 03/2021 - In-person encounter Office Visit Ben Lindsay MD [facility] - In-person encounter Office Visit Ben Lindsay MD [facility] Edema-BLE - In-person encounter Office Visit Ben Lindsay MD [facility] Shortness of breathSleep apnea severe starting BIPAPChest pain-t abnormal stress nuclear 01/2021 - In-person encounter Office Visit Ben Lindsay MD [facility] Shortness of breathTobacco abuse 40 pack years , quit 2013ObesityCOPD severe obstruction on PFTS 12/11 - In-person encounter Office Visit Ben Lindsay MD [facility] - In-person encounter Office Visit Ben Lindsay MD [facility] Shortness of breathSleep apnea severe starting BIPAPHTN essential--echo ef 61%, LVH, 11/2020Tobacco abuse 40 pack years , quit 2013 VITAL SIGNS Date Observation Value Provider Body Mass Index (Ratio) 29.27 kg/m2 Clifford Lindsay MD blood pressure, diastolic 120 mm[Hg] Eligio Bond blood pressure, systolic 174 mm[Hg] Kasia [facility] pulse rate 100 /min [facility] Inhaled O2 2 L/min Mack [facility] oxygen saturation, oximetry 96 % Mack [facility] respiratory rate E&M 24 /min Mack [facility] weight E&M 228 [lb_av] Mack [facility] blood pressure, cuff size regular Eligio pimentel [facility] height E&M 74 [in_i] Mack [facility] Body Mass Index (Ratio) 34.53 kg/m2 Clifford Lindsay MD blood pressure, diastolic 81 mm[Hg] Li nkLog blood pressure, systolic 123 mm[Hg] Jeanie kLogswati blood pressure, diastolic 81 mm[Hg] St janie Salo blood pressure, systolic 123 mm[Hg] Sta freddy Leong oxygen saturation, oximetry 95 % Yolanda Salo pulse rate 78 /min Yolanda Salo weight E&M 269 [lb_av] Yolanda Salo respiratory rate E&M 16 /min Yolanda D vivien height E&M 74 [in_i] Yolanda Salo Body Mass Index (Ratio) 40.95 kg/m2 Clifford Lindsay MD blood pressure, diastolic 76 mm[Hg] Sa ra Loaiza blood pressure, systolic 134 mm[Hg] Poncho a Loaiza oxygen saturation, oximetry 94 % Jenny Loaiza respiratory rate E&M 19 /min Jenny Si ms pulse rate 88 /min Jenny Loaiza blood pressure, cuff size regular Sa ra Loaiza weight E&M 319 [lb_av] Jenny Loaiza height E&M 74 [in_i] Jenny Loaiza height E&M 74 [in_i] Damaris cristina blood pressure, cuff size large Sandra Bray blood pressure, diastolic 60 mm[Hg] Sandra Bray blood pressure, systolic 110 mm[Hg] [facility], oximetry 96 % Damaris Katarina pulse rate 91 /min Damaris Geiger cristina Body Mass Index (Ratio) 2.22 kg/m2 Clifford Lindsay MD blood pressure, cuff size regular Cy maxwell Feliciano blood pressure, diastolic 80 mm[Hg] Cy maxwell Feliciano blood pressure, systolic 134 mm[Hg] Sonal savannah Feliciano pulse rate 91 /min Aedsavannah Yarbroughbel l oxygen saturation, oximetry 95 % Ade Feliciano respiratory rate E&M 20 /min Ade Feliciano weight E&M 317 [lb_av] Ade Campbel l height E&M 317 [in_i] Ade Campbel l Body Mass Index (Ratio) 40.95 kg/m2 Clifford Lindsay MD blood pressure, diastolic 78 mm[Hg] Li nkLogic blood pressure, systolic 144 mm[Hg] Jeanie kLogic blood pressure, diastolic 78 mm[Hg] radha Jose Luis blood pressure, systolic 144 mm[Hg] She donnell Jose Luis oxygen saturation, oximetry 94 % Annika Jose Luis respiratory rate E&M 18 /min Belem killian Amaya pulse rate 84 /min Shertamara Anna cuellar weight E&M 319 [lb_av] Sherbonitaitha Craw cuellar height E&M 74 [in_i] Sherkeitha Craw cuellar blood pressure, diastolic 93 mm[Hg] Me juancarlos Basilio blood pressure, systolic 137 mm[Hg] Kia elmer Richmond pulse rate 88 /min Bridgette Basilio oxygen saturation, oximetry 95 % Bridgette Richmond respiratory rate E&M 17 /min Bridgette Richmond Body Mass Index (Ratio) 40.70 kg/m2 [facility] weight E&M 317 [lb_av] Bridgette Richmond blood pressure, diastolic 100 mm[Hg] Mo juancarlos [place] blood pressure, systolic 169 mm[Hg] Kia payne [place] Body Mass Index (Ratio) 38 kg/m2 [facility] pulse rate 78 /min Bridgette Richmond oxygen saturation, oximetry 98 % Bridgette Richmond respiratory rate E&M 16 /min Bridgette Richmond weight E&M 296 [lb_av] Bridgette Richmond Body Mass Index (Ratio) 37.49 kg/m2 [facility] blood pressure, diastolic 101 mm[Hg] Mo juancarlos [place] blood pressure, systolic 141 mm[Hg] Kia payne [place] pulse rate 74 /min Bridgette Richmond oxygen saturation, oximetry 96 % Bridgette Richmond respiratory rate E&M 16 /min Bridgette Richmond weight E&M 292 [lb_av] Bridgette Richmond height E&M 74 [in_i] Bridgette Richmond ALLERGIES Allergy Name Onset Date Reaction Criticality Status FELDENE High Criticality active RESULTS Date Observation Value Provider Reference Range Interpretation Location microalbumin/creatin ine ratio, urine <16 mg/g creat [facility] 0-29 microalbumin, random, urine <3.0 ug/mL [facility] Not Estab. creatinine, random, urine 19.3 mg/dL [facility] Not Estab. pro brain natriuretic peptide 264 pg/mL [facility] 0-210 High c-reactive protein, quantitative, serum 1.33 mg/L [facility] 0.00-3.00 hemoglobin A1C, blood, as % of total hemoglobin 5.1 % [facility] 4.8-5.6 lipoprotein, beta, serum, point, quantitative, calculated 79 mg/dL [facility] 0-99 HDL cholesterol, serum 56 mg/dL [facility] >39 triglyceride, serum, random 86 mg/dL [facility] 0-149 cholesterol, serum 151 mg/dL [facility] [phone]/07/ 08 alanine aminotransferase (SGPT), serum 14 1/L [facility] 0-44 aspartate aminotransferase (SGOT), serum 16 1/L [facility] 0-40 alkaline phosphatase, serum 103 1/L [facility] 44-121 bilirubin, serum, total 0.6 mg/dL [facility] 0.0-1.2 albumin/globulin ratio, serum 1.7 [facility] 1.2-2.2 globulin, serum 2.6 [facility] 1.5-4.5 albumin, serum 4.5 g/dL [facility] 3.8-4.8 protein, total, serum 7.1 g/dL [facility] 6.0-8.5 calcium, serum 9.4 mg/dL [facility] 8.6-10.2 carbon dioxide, venous blood 23 mmol/L [facility] 20-29 chloride, serum 101 mmol/L [facility] 96-106 potassium, serum 4.7 mmol/L [facility] 3.5-5.2 sodium, serum 137 mmol/L [facility] 411-173 6932/07/ 08 urea nitrogen/creatinine ratio, serum 14 [facility] 10-24 creatinine, serum 1.55 mg/dL [facility] 0.76-1.27 High urea nitrogen, blood 21 mg/dL [facility] 8-27 blood glucose, random 88 mg/dL [facility] 70-99 platelet count 208 X10E3/UL [facility] 203-682 3778/07/ 08 red blood cell distribution width 12.5 % [facility] 11.6-15.4 mean corpuscular hemoglobin concentration, RBC 33.3 G/DL [facility] 31.5-35.7 mean corpuscular hemoglobin, RBC 30.7 pg [facility] 26.6-33.0 mean corpuscular volume, RBC 92 fL [facility] 79-97 hematocrit, blood 44.7 % [facility] 37.5-51.0 hemoglobin, blood 14.9 g/dL [facility] 13.0-17.7 erythrocyte (RBC) count 4.85 X10E6/UL [facility] 4.14-5.80 leukocyte count, blood 7.5 X10E3/UL [facility] 3.4-10.8 platelet count 262 10*3/mm3 Salazar Vo hematocrit, blood 40.0 % Salazar Vo thyroid stimulating hormone, serum 1.430 u[IU]/mL Salazar Vo alanine aminotransferase (SGPT), serum 27 1/L Salazar Vo aspartate aminotransferase (SGOT), serum 17 1/L Salazar Vo blood glucose, random 112 mg/dL Salazar Vo creatinine, serum 0.96 mg/dL Salazar Vo urea nitrogen, blood 24 mg/dL Salazar Vo potassium, serum 4.0 mmol/L Salazar Vo sodium, serum 138 mmol/L Salazar Vo HISTORY OF MEDICATION USE Medication Status Instructions Dates Provider Indications Com ments Cardizem CD 360 mg capsule,extende d release 24hr active Take 1 capsule by mouth once a day Jazmín Ventimiglia [employer] Eliquis 5 mg tablet active TAKE 1 TABLET BY MOUTH TWICE DAILY Jazmín Ventimiglia [employer] losartan 50 mg tablet active TAKE 1 TABLET BY MOUTH EVERY DAY Jazmín ROBERTSON Trulicity 0.75 mg/0.5 mL pen injector completed INJECT 1 SYRINGE SUBCUTANEOUSLY ONCE A WEEK - Mack Bond Trulicity 0.75 mg/0.5 mL pen injector completed INJECT 1/2 (ONE-HALF) ML SUBCUTANEOUSLY ONCE A WEEK - Huey Calderon Trulicity 0.75 mg/0.5 mL pen injector completed INJECT 0.5 ML SUBCUTANEOUSLY ONCE A WEEK - Nan Beavers losartan 25 mg tablet completed Take 1 tablet by mouth once daily - Mack Deltamaddison losartan 25 mg tablet completed Take 1 tablet by mouth once a day Take 1 tablet by mouth once daily - Vickie Jimenez aspirin 81 mg tablet,delayed release (DR/EC) completed Take 1 tablet by mouth once a day Take 1 tablet by mouth once daily - Mack Bond losartan 25 mg tablet completed Take 1 tablet by mouth once daily - Shanda Wilson Trulicity 0.75 mg/0.5 mL pen injector completed Inject 0.5 ml subcutaneously once a week - Vickie Jimenez atorvastatin 80 mg tablet completed Take 1 tablet by mouth once daily - Mack Bond aspirin 81 mg tablet,delayed release (DR/EC) completed Take 1 tablet by mouth once daily - Shanda Wilson clopidogrel 75 mg tablet completed Take 1 tablet by mouth once daily - Mack Bond Plavix 75 mg tablet completed Take 1 tablet by mouth once a day - Damaris Bray losartan 25 mg tablet completed Take 1 tablet by mouth once a day - Vickie Jimenez MEDROL 4 MG ORAL TABLET THERAPY PACK completed use as directed - Annika Amaya GILPHEX TR 10-388 MG ORAL TABLET completed po bidx 7 days - Sherwin Singh RN AZITHROMYCIN 500 MG ORAL TABLET completed po daily x 5 days - Nevinmateo Amaya Tudorza Pressair 400 mcg/actuation aerosol powdr breath activated active twice a day Bridgette Richmond Symbicort 160-4.5 mcg/actuation HFA aerosol inhaler active 1 puff twice a day Bridgette Richmond NALTREXONE HCL 50 MG ORAL TABLET completed once daily - Annika Amaya bupropion HCl 150 mg tablet sustained-relea se 12 hr completed tablet by mouth twice a day - Mack Bond amlodipine 10 mg tablet completed 0.5 tablet by mouth once a day - Jazmín Sowglayush [facility] CATAPRES 0.1 MG ORAL TABLET completed twice daily - Bridgette Richmond Ventolin HFA 90 mcg/actuation HFA aerosol inhaler active 2 puff every four to six hours Bridgette Richmond gabapentin 600 mg tablet completed tablet by mouth three times a day - Mack Bond SERTRALINE HCL 100 MG ORAL TABLET completed 2 tabs once daily - Bridgette Richmond [facility] IBUPROFEN 200 MG ORAL TABLET completed 2-4 TABS 4-6 TIMES DAILY - Bridgette Richmond Lasix 40 mg tablet active tablet by mouth once a day Bridgette Richmond TOPAMAX 100 MG ORAL TABLET completed ONCE DAILY - Bridgette Richmond PROZAC 40 MG ORAL CAPSULE completed TWICE DAILY - Bridgette Richmond SOCIAL HISTORY Date Observation Value Provider personal history of marijuana use yes Jazmín Rockymiglia [employer] drug use no Jazmín Ventimig jos [facility] alcohol use no Jazmín Ventimig jos [facility] smoking, year quit 2013 Jazmín florimkaryn [facility] cigarette use yes Jazmín Ventimi glia [employer] smoking status Former smoker Jazmín bhardwajlia [facility] social history reviewed E&M revi ewed - no changes required Ben Lindsay MD social history reviewed E&M revi ewed - no changes required Jose Cannon Underweight no Ben Lindsay MD social history E&M Smoking Histo ry: Tyler figueroa is a former smoker. Damaris Bray social history reviewed E&M revi ewed - no changes required Damaris Bray social history E&M S moking History: Tyler figueroa is a former smoker. Ben Lindsay MD social history reviewed E&M revi ewed - no changes required Ben Lindsay MD Underweight yes Ben Lindsay MD smoking, year quit 2013 Ade olivera cigarette use yes Ade Harley beck smoking status Former smoker Ade Yarbrough kalyn number of grandchildren Ben Lindsay MD T home Lindsay MD social history reviewed E&M revi ewed - no changes required Ben Lindsay MD social history E&M S moking History: Tyler figueroa is a former smoker. Ben Lindsay MD smoking, year quit 2013 Bhavin Amaya cigarette use yes Annika cisneros smoking status Former smoker Nevinpreciouskatie mohamud social history reviewed E&M revi ewed - no changes required Bridgette Richmond smoking, year quit 2013 Bridgette Guerra cigarette use yes Bridgette Richmond smoking status Former smoker Bridgette Morillo nn social history reviewed E&M revi ewed - no changes required Ben Lindsay MD smoking, year quit 2013 Bridgette Garduno Charlie cigarette use yes Bridgette Richmond smoking status Former smoker Bridgette king smoking, year quit 2013 Bridgette Garduno Quintinfernando cigarette use yes Bridgette Richmond smoking status Former smoker Bridgette Morillo nn FUNCTIONAL STATUS Date Observation Value Provider HRA, CV Assess/Plan, Angina (inactive) Management Plan continue current therapy Jazmín Shikha [employer] HRA, CV Assess/Plan, Angina (inactive) Management Plan continue current therapy Jose Cannon FAMILY HISTORY Family Member Condition Father Negative FH of Coron renee Artery Disease INSURANCE PROVIDERS Payer name Policy type / Coverage type [place] red libertarian ID [employer] MEDICARE GOLD ADVANTAGE HMO Medicare [id number] ADVANCE DIRECTIVES Name Date DISCUSSED - NO DECISION MADE TREATMENT PLAN Date Name Performer [id number],SJose i [id number],SJose i [id number],SJose i [id number],S, Jose Serrano i [id number],SJose i [id number],SJose i [id number],BBen MD [id number],BBen MD [id number],SBen MD [id number],SBen MD [id number],Ben Page MD [id number],Ben Guillaume MD [id number],S, Ben Lindsay MD [id number],B, Ben Lindsay MD [id number],S, Ben Lindsay MD [id number],S, Ben Lindsay MD [id number],S, Ben Lindsay MD [id number],S, Ben Lindsay MD [id number],S, Ben Lindsay MD [id number],S, H is updated medication list for this problem includes: Losartan Potassium 25 Mg Oral Tablet (Losartan potassium) ..... Take one tablet daily Amlodipine Besylate 10 Mg Oral Tablet (Amlodipine besylate) ..... 1/2 tab once daily Lasix 40 Mg Oral Tablet (Furosemide) ..... Once daily Ben Lindsay MD [id number],S,m ask giving some issues: slobbering W ill refer to pulmonary for lung evaluation Ben Lindsay MD [id number],W, H is updated medication list for this problem includes: Amlodipine Besylate 10 Mg Oral Tablet (Amlodipine besylate) ..... 1/2 tab once daily Ben Lindsay MD [id number],S,s lightly elevated B P today: 144/78 P rior BP: 137/93 (03/16/2016) Labs Reviewed: C reat: 0.96 (08/09/2013) Ben Lindsay MD Cardiology:rate unco ntrolled in 100s today in office W as in NSR at time of discharge last month post cardioversion w as on tikosyn, cardizem and Eliquis at that time W ill resume cardizem and eliquis W ill have him follow with Dr. Pena T he following medications were removed from the medication list: Clopidogrel 75 Mg Tablet (Clopidogrel) ..... Take 1 tablet by mouth once daily Aspirin 81 Mg Tablet,delayed Release (dr/ec) (Aspirin) ..... Take 1 tablet by mouth once a day take 1 tablet by mouth once daily T his visit has been a part of the consistent, comprehensive, and ongoing management of the chronic medical condition(s) listed above for the patient. Ben Lindsay MD Cardiology: H is updated medication list for this problem includes: Ventolin Hfa 90 Mcg/actuation Hfa Aerosol Inhaler (Albuterol sulfate) ..... 2 puff every four to six hours Tudorza Pressair 400 Mcg/actuation Aerosol Powdr Breath Activated (Aclidinium bromide) ..... Twice a day Symbicort 160-4.5 Mcg/actuation Hfa Aerosol Inhaler (Budesonide-formoterol) ..... 1 puff twice a day [facility] Cardiology:cessation encouraged [facility] Cardiology: T he following medications were removed from the medication list: Amlodipine 10 Mg Tablet (Amlodipine) ..... 0.5 tablet by mouth once a day Clopidogrel 75 Mg Tablet (Clopidogrel) ..... Take 1 tablet by mouth once daily Aspirin 81 Mg Tablet,delayed Release (dr/ec) (Aspirin) ..... Take 1 tablet by mouth once a day take 1 tablet by mouth once daily His updated medication list for this problem includes: Cardizem Cd 360 Mg Capsule,extended Release 24hr (Diltiazem hcl) ..... Take 1 capsule by mouth once a day [facility] Cardiology:BP above goal M eds adjusted T he following medications were removed from the medication list: Amlodipine 10 Mg Tablet (Amlodipine) ..... 0.5 tablet by mouth once a day Aspirin 81 Mg Tablet,delayed Release (dr/ec) (Aspirin) ..... Take 1 tablet by mouth once a day take 1 tablet by mouth once daily Losartan 25 Mg Tablet (Losartan) ..... Take 1 tablet by mouth once daily His updated medication list for this problem includes: Cardizem Cd 360 Mg Capsule,extended Release 24hr (Diltiazem hcl) ..... Take 1 capsule by mouth once a day Losartan 50 Mg Tablet (Losartan) ..... Take 1 tablet by mouth every day Lasix 40 Mg Tablet (Furosemide) ..... Tablet by mouth once a day Darfur Magijose [facility] Cardiology:rate unco ntrolled in 100s today in office W as in NSR at time of discharge last month post cardioversion w as on tikosyn, cardizem and Eliquis at that time W ill resume cardizem and eliquis W ill have him follow with Dr. Pena T he following medications were removed from the medication list: Clopidogrel 75 Mg Tablet (Clopidogrel) ..... Take 1 tablet by mouth once daily Aspirin 81 Mg Tablet,delayed Release (dr/ec) (Aspirin) ..... Take 1 tablet by mouth once a day take 1 tablet by mouth once daily [facility] Cardiology:Appears d ecompensated in setting of afib with rvr p atient has declined admission to hospital w ill contiue diuresis and update labs W ill resume meds for afib Darfur Rockyharshadjose [facility] Cardiology Jose Ahmedzai Cardiology Jose Ahmedzai Cardiology Jose Ahmedzai Cardiology Jose Ahmedzai Cardiology Jose Ahmedzai Cardiology Jose Donmedzai Cardiology Ben Lindsay MD Cardiology Ben Lindsay MD Cardiology Ben Lindsay MD Cardiology Ben Lindsay MD Cardiology Ben Lindsay MD Cardiology Ben Lindsay MD Cardiology follow up Ben singh MD Cardiology follow up Ben singh MD Cardiology follow up Ben singh MD Cardiology follow up Ben signh MD Cardiology follow up Ben singh MD Cardiology Ben Lindsay MD Cardiology Ben Lindsay MD Cardiology: H is updated medication list for this problem includes: Losartan Potassium 25 Mg Oral Tablet (Losartan potassium) ..... Take one tablet daily Amlodipine Besylate 10 Mg Oral Tablet (Amlodipine besylate) ..... 1/2 tab once daily Lasix 40 Mg Oral Tablet (Furosemide) ..... Once daily Ben Lindsay MD Cardiology:mask gieligio ng some issues: slobbering W ill refer to pulmonary for lung evaluation Ben Lindsay MD Cardiology: H is updated medication list for this problem includes: Amlodipine Besylate 10 Mg Oral Tablet (Amlodipine besylate) ..... 1/2 tab once daily Ben Lindsay MD Cardiology:slightly elevated B P today: 144/78 P rior BP: 137/93 (03/16/2016) Labs Reviewed: C reat: 0.96 (08/09/2013) Ben Lindsay MD Cardiology Ben Lindsay MD Cardiology Ben Lindsay MD Cardiology Ben Lindsay MD Cardiology Ben Lindsay MD Cardiology Ben Lindsay MD Cardiology:get formal sleep stud y Ben Lindsay MD Cardiology Ben Lindsay MD Cardiology:ecigs Ben Lindsay MD Cardiology:using inhaler Ben Lindsay MD Cardiology:ou tof meds, picked u p today Ben Lindsay MD :fixed inferior wall defect stress test 2014 e cho 2014 , nllv fn , diastolic dysfn, no valvular abnormalities Ben Lindsay MD NEW PATIENT: H is updated medication list for this problem includes: Lasix 40 Mg Tabs (Furosemide) ..... Once daily BP today: 141/101 Ben Lindsay MD Date Name PROBNP, N TERMINAL BASIC METABOLIC PANE L W/EGFR CBC (H/H, RBC, INDIC ES, WBC, PLT) PROBNP, N TERMINAL Microalb/Creatinine Urine, Random HEMOGLOBIN A1c LIPID PANEL CRP, high sensitivit y COMPREHENSIVE METABO LIC PANEL, W/EGFR PROTHROMBIN TIME WIT H INR LIPID PANEL CBC (INCLUDES DIFF/P LT) BASIC METABOLIC PANE L W/EGFR Stress Regadenoson DLCO Order - [id number] FRC Order - [id number] FVC Order - [id number] HISTORY OF PROCEDURES Procedure Date Procedure Name Provider Procedure Notes S tatus Complex e/m visit add on Sam Elkins MD completed EKG Ben Lindsay MD completed EKG Ben Lindsay MD completed Stress EKG Dawit Bailon MD completed Regadenoson, 4 units Estela decker MD completed Cardiolite, 2 units Estela cardoza MD completed SPECT Images Estela Ortega MD completed SNOMED-CT: [id number] Physical Exam, Performed: Pulse Exam of Foot Ben Lindsay MD completed EKG Ben Lindsay MD completed SNOMED-CT: [id number] Current Medications Documented Ben Lindsay MD completed BLOOD COUNT HEMOGLOBIN Ben Lindsay MD completed EKG Ben Lindsay MD completed
--- OUTSIDE RECORDS SUMMARY | 2024-07-03 17:29 | XMS_ITS | Clinical Summary ---
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 Active amLODIPine (NORVASC) 10 MG Tablet Take 10 mg by mouth daily. Active Phenylephrine-G uaifenesin (GILPHEX TR) 10-388 MG Tablet Take by mouth. Activ e azithromycin (ZITHROMAX) 500 MG Tablet Take 500 mg by mouth daily. Reported on 07/29/2016 Active Aclidinium [place] (TUDORZA PRESSAIR IN) take by inhalation. Active budesonide-form oterol fumarate (SYMBICORT) 160-4.5 MCG/ACT Aerosol take 2 Puffs by inhalation 2 times daily. Active naltrexone (DEPADE) 50 MG Tablet Take 50 mg by mouth daily. Active buPROPion (WELLBUTRIN) 150 MG XL tablet Take 150 mg by mouth every morning. Active gabapentin (NEURONTIN) 600 MG Tablet 7 Active furosemide (LASIX) 40 MG Tablet 7 Active BuPROPion HCl 200 MG TABLET SR 12 HR 7 Active VENTOLIN HFA 108 (90 Base) MCG/ACT Aerosol Solution 7 Active azithromycin (ZITHROMAX Z-MARQUISE) 250 MG Tablet 2 tab(s) daily for 1 day, then 1 tab(s) daily for days 2-5. 6 Tab 7 Active Active Problems Problem Noted Date Diagnosed Date Centrilobular emphysema 07/29/2016 SOB (shortness of breath) 07/29/2016 Cough 07/29/2016 MATTHEW (obstructive sleep apnea) 07/29/2016 Morbid obesity due to excess calories 07/29/2016 Essential (primary) hypertension 07/29/2016 Immunizations Immunization Administration Dates Next Due Influenza Vaccine greater than 3 yrs 02/23/2016 Family History Medical History Relation Name Comments Cancer Mother Relation Name Status Comments Mother Social History Tobacco Use Types Packs/Day Years Used Date Smoking Tobacco: Former Smokeless Tobacco: Never Tobacco Cessation:Counseling Given: No Alcohol Use Standard Drinks/Week Comments Yes 3 (1 standard drink = 0.6 oz pur e alcohol) Sex and Gender Information Value Date Recorded Sex Assigned at Not on file Legal Sex Male 4:26 PM CDT Gender Identity Not on file Sexual Orientation Not on file Last Filed Vital Signs Vital Sign Reading Time Taken Comments Blood Pressure 126/80 11/24/2017 9:40 AM CDT Pulse 92 11/24/2017 9:40 AM CDT Temperature 36.9 ??C (98.4 ??F) 11/24/2017 9:40 AM CD T Respiratory Rate 16 05/24/2017 10:5 9 AM 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 Oxygen Saturation 96% 11/24/2017 9:40 AM CDT Inhaled Oxygen Concentration - - Weight 136.3 kg (300 lb 6.4 oz) 11/24/2017 9:40 AM CDT Height 182.9 cm (6') 11/24/2017 9:40 AM CDT Body Mass Index 40.74 11/24/2017 9:40 AM CDT Plan of Treatment Health Maintenance Due Date Last Done Comments Hepatitis C Virus (HCV) Screening 1960 Pneumococcal Immunization (50+ years) (1 of 2 - PCV) 1977 Colonoscopy 2003 Colorectal Cancer Screening 2003 Cologuard 2008 Immunochemical Fecal Occult Blood 2008 Zoster Immunization (1 of 2) 2008 PSA Discussion 2013 Respiratory Syncytial Virus (RSV) Immunization (Adult) (1 - Risk 60-74 years 1-dose series) 2018 Influenza Immunization (#1) 01/29/202402/27, 04/21/2016, 02/23/2016, Additional history exists SARS-COV-2 Immunization ( season) 2024 04/21/2021, 03/30/2021, 08/29/2020 DTaP/Tdap/Td Immunization Discontinued 04/25/2017 TdaP Immunization Completed 04/25/2017 Hepatitis B Immunization Aged Out No longer eligible based on patient's age to complete this topic Meningococcal Immunization (ACWY) Aged Out No longer eligible based on patient's age to complete this topic Rotavirus Immunization Aged Out No lo nger eligible based on patient's age to complete this topic Insurance MEDICAID [place] Care 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
--- OUTSIDE RECORDS SUMMARY | 2024-07-03 17:29 | XMS_ITS | Patient Health Summary ---
Author Organization [facility] Address [address] [place] [address] Care Team Providers Care Brand Representative Name Role Phone Shala Diaz MD Primary Care Provider Ben Lindsay MD Unavailable Note from [facility],non-owned Affiliates and Associated Physician Practices is amultiple site organization consisting of ambulatory clinics and hospital sitesin [place], [place] and [place]. This disclosure is being madepursuant to the Care Everywhere program and may not contain all information available regarding this patient. Last updated 18.[facility] Allergies * Piroxicam(Other) -High Criticality Medications * Be aware that medications may not be up to date on this document. Alwaysverify current medications with the patient. * albuterol HFA (VENTOLIN HFA) 108 (90 Base) MCG/ACT inhaler(Started 06/25/2016) Inhale 2 puffs by mouth as needed * amLODIPine (NORVASC) 10 MG tablet Take 10 mg by mouth once daily * budesonide-formoterol (SYMBICORT) 160-4.5 MCG/ACT inhaler Inhale 2 puffs by mouth once daily * furosemide (LASIX) 40 MG tablet(Started 07/28/2019) Take 40 mg by mouth once daily * ibuprofen (MOTRIN) 400 MG tablet(Started 07/30/2019) Take 400 mg by mouth 2 times daily * INCRUSE ELLIPTA 62.5 MCG/INH inhaler(Started 07/28/2019) Inhale 1 puff by mouth once daily * cyanocobalamin (VITAMIN B-12) 1000 MCG tablet(Started 05/19/2020) Take 1 tablet by mouth once daily * buPROPion XL 24hr (WELLBUTRIN-XL) 300 MG tablet(Started 06/19/2020) Take 300 mg by mouth 3 times daily * losartan (COZAAR) 25 MG tablet(Started 12/05/2020) Take 25 mg by mouth once daily * EQ Aspirin Adult Low Dose 81 MG tablet(Started 01/01/2023) Take 1 (one) tablet by mouth once daily * atorvastatin (Lipitor) 80 MG tablet(Started 02/20/2023) Take 1 (one) tablet by mouth once daily * buPROPion HCl ER, XL, 450 MG(Started 05/02/2023) TAKE 1 BY MOUTH ONCE DAILY * buPROPion XL 24hr (Wellbutrin-XL) 150 MG tablet * clopidogrel (plaVIX) 75 MG tablet(Started 01/01/2022) Take 1 (one) tablet by mouth once daily * cyclobenzaprine (Flexeril) 10 MG tablet TAKE 1 TABLET BY MOUTH THREE TIMES DAILY NEEDED FOR 14 DAYS * Trulicity 0.75 MG/0.5ML injection(Started 05/08/2023) INJECT 1 SYRINGE SUBCUTANEOUSLY ONCE A WEEK * FLUoxetine (PROzac) 20 MG capsule 4 capsules Orally Once a day for 30 days * gabapentin (Neurontin) 600 MG tablet 1 tablet Orally Three times a day for 30 days * ketoconazole (Nizoral) 2 % shampoo(Started 07/28/2021) APPLY TOPICALLY TO THE AFFECTED AREA(S) LATHER, LEAVE IN PLACE FOR 5 MINUTES AND THEN RINSE OFF WITH WATER ONCE DAILY * Viagra 100 MG tablet(Started 05/10/2023) Take 1 TABLET BY MOUTH 1 HOUR PRIOR TO SEXUAL ACTIVITY DIRECTED, NOT TO EXCEED 1 IN 24 HOURS. * topiramate (Topamax) 200 MG tablet Take 1 (one) tablet by mouth 2 times daily Active Problems Problem Noted Date Diagnosed Date Pain in joint of right shoulder 05/19/2023 06/06/2023 Encounter for general adult medical examination with abnormal findings 05/20/2021 06/06/2023 Degeneration of intervertebral disc of lumbar re gion 05/20/2021 06/06/2023 Bipolar 2 disorder 05/20/2021 06/06/2023 Atherosclerosis of aorta 05/20/2021 024 Chronic bilateral low back pain with sciatica 06/06/2023 Feeling lonely 05/20/2021 06/06/2023 Major depressive disorder 05/20/20212023 Poor dentition 05/20/2021 06/06/2023 Spinal stenosis, lumbar region with neurogenic c laudication 05/20/2021 06/06/2023 Marijuana user 05/20/2021 06/06/2023 Body mass index (BMI) of 40.0-44.9 in adult 04/3006/06/2023 Arteriosclerosis of coronary artery 05/10/2021 06/06/2023 Mixed conductive and sensori neural hearing loss of left ear with restricted hearing of right ear 02/13/2021 Sensorineural hearing loss ( SNHL) of right ear with restricted hearing of left ear 02/13/2021 Mixed conductive and sensori neural hearing loss of left ear with restricted hearing of right ear 02/13/2021 06/06/2023 Edema 12/05/2020 06/06/2023 Chronic obstructive lung disease 11/25/2020 06/06/2023 Left chronic otitis media 08/11/2019 ETD (Eustachian tube dysfunction), left 08/11/19 20 Centrilobular emphysema 07/29/2016 Essential (primary) hypertension 07/29/2016 Morbid obesity due to excess calories 07/29/2016 MATTHEW (obstructive sleep apnea) 07/29/2016 SOB (shortness of breath) 07/29/2016 Centrilobular emphysema 07/29/2016 06/06/19 24 MATTHEW (obstructive sleep apnea) 07/29/2016 Morbid obesity due to excess calories 07/29/2016 06/06/2023 Chronic obstructive pulmonary disease 02/10/2015 06/06/2023 Obesity 02/10/2015 06/06/2023 Nicotine dependence, unspecified, uncomplicated 12/18/2013 06/06/2023 Sleep apnea, unspecified 12/18/2013 024 Former smoker, stopped smoking in distant past 0 12/17/2013 06/06/2023 Primary hypertension 12/17/2013 06/06/2023 Shortness of breath 12/17/2013 06/06/2023 Resolved Problems Problem Noted Date Diagnosed Date Resolved Date Ear drum perforation, left 08/11/2019 0 02/13/2021 Cough 07/29/2016 10/04/2019 Cough 07/29/2016 06/06/2023 07/04/2023 Immunizations * INFLUENZA VACCINE, TRIV. (AFLURIA, FLUZONE TRIVALENT; 6MO+) (IIV3)(Given 02/23/2016) * COVID ELISHA PRIMARY 18+YR(Given 09/11/2020) * INFLUENZA VACCINE(Given 02/12/2020, 06/23/2019) * TDAP (7yrs+)(Given 04/25/2017) * iNFLUENZA VACCINE, RECOM-ACE, QUADR. (FLUBLOCK QUADRIVALENT; 18Y+) (RIV4)(Given 03/19/2020) Social History Tobacco Use Types Packs/Day Years [...] Mass Index 40.64 02/13/2021 3:53 PM CDT Procedures * XR LUMBAR SPINE 4VW OR MORE(Performed 06/30/2023) Performed for Spinal stenosis of lumbar region without neurogenic claudication * AUDIOLOGY/TYMPANOMETRY ORDER(Performed 02/13/2021) * MRI ORBITS OR FACE WWO CONTRAST(Performed 10/31/2020) Performed for Ptosis of left eyelid, Diplopia * MRI ANGIO BRAIN ARTERIAL WO CONT(Performed 10/31/2020) Performed for Ptosis of left eyelid, Diplopia * MRI ANGIO NECK W CONTRAST(Performed 10/31/2020) Performed for Ptosis of left eyelid, Diplopia, Neck pain * CREATININE - POCT INTERFACED(Performed 10/31/2020) * CARDIAC EKG ORDER(Performed 08/29/2020) * CO TYMPANOPLAS/MASTOIDECTOMY(Performed 08/27/2020) Performed for Left chronic otitis media * PERIPHERAL IV NOTE(Performed 08/27/2020) * ENDOTRACHEAL TUBE NOTE(Performed 08/27/2020) * SARS-COV-2 (COVID-19) IN HOUSE(Performed 08/23/2020) Performed for Pre-op testing * BASIC METABOLIC PANEL (CALCIUM TOTAL)(Performed 08/21/2020) Performed for Pre-op evaluation * CBC W/O DIFFERENTIAL(Performed 08/21/2020) Performed for Pre-op evaluation * EKG 12-LEAD(Performed 08/21/2020) Performed for Pre-op evaluation * AUDIOLOGY/TYMPANOMETRY ORDER(Performed 06/30/2020) * MUSK ANTIBODY IGG W/REFLEX(Performed 06/09/2020) Performed for Ptosis of left eyelid * MAXIMINO URINE(Performed 05/16/2020) Performed for Weakness of lower extremity, unspecified laterality * FREE LIGHT CHAINS QUANT URINE(Performed 05/16/2020) Performed for Weakness of lower extremity, unspecified laterality * ACETYLCHOLINE RECEPTOR BINDING ANTIBODY(Performed 05/16/2020) Performed for Weakness of lower extremity, unspecified laterality * ACETYLCHOLINE RECEPTOR MODULATING ANTIBODY(Performed 05/16/2020) Performed for Weakness of lower extremity, unspecified laterality * ACETYLCHOLINE RECEPTOR BLOCKING ANTIBODY(Performed 05/16/2020) Performed for Weakness of lower extremity, unspecified laterality * KAPPA/LAMBDA LITE CHAIN FREE PANEL(Performed 05/16/2020) Performed for Weakness of lower extremity, unspecified laterality * IMMUNOFIXATION BLOOD(Performed 05/16/2020) Performed for Weakness of lower extremity, unspecified laterality * ALDOLASE(Performed 05/16/2020) Performed for Weakness of lower extremity, unspecified laterality * CK BLOOD(Performed 05/16/2020) Performed for Weakness of lower extremity, unspecified laterality * METHYLMALONIC ACID BLOOD(Performed 05/16/2020) Performed for Weakness of lower extremity, unspecified laterality * VITAMIN B12(Performed 05/16/2020) Performed for Weakness of lower extremity, unspecified laterality * CT TEMPORAL BONES WO CONTRAST(Performed 03/05/2020) Performed for Perforated tympanic membrane on examination, left * CO EAR MICROSCOPY EXAMINATION(Performed 02/15/2020) Performed for Otorrhea of left ear * AUDIOLOGY/TYMPANOMETRY ORDER(Performed 02/15/2020) Results * XR LUMBAR SPINE 4VW OR MORE (06/30/2023 3:01 PM CLOTH MERCERIZING SUPERVISOR) Anatomical Region Laterality Modality Spine Radiographic Rosette ging 06/30/2023 4:33 PM CLOTH MERCERIZING SUPERVISOR Impressions 06/30/2023 11:34 PM CLOTH MERCERIZING SUPERVISOR IMPRESSION: 1.No acute fracture identified. 2.Mild to moderate degenerative disc and joint disease of the lumbar spine associated with leftward convexity of the spine. > Dictated by Jeanie Tristan MD (founder and president). I, Sarabjit Friedman MD have personally reviewed and interpreted this examination/study. > Interpreting Provider: Sarabjit Friedman MD on 06/30/2023 11:34 PM Narrative 06/30/2023 11:34 PM CLOTH MERCERIZING SUPERVISOR EXAMINATION: XR LUMBAR SPINE 4VW OR MORE DATE/TIME OF EXAM: ??06/30/2023 3:01 PM, LOCATION ??[facility] HISTORY: M48.061: Spinal stenosis of lumbar region without neurogenic claudication preop planning COMPARISON: No prior study is available for comparison. FINDINGS: Mild levocurvature of the thoracolumbar spine. Trace retrolisthesis of L2 on L3. Moderate disc height loss at L5-S1. Mild multilevel degenerative disc disease. Moderate facet arthropathy in the lower lumbar spine. Scattered abdominal aorta calcifications. Procedure Note Sarabjit Friedman MD - 06/30/2023 EXAMINATION: XR LUMBAR SPINE 4VW OR MORE DATE/TIME OF EXAM: 06/30/2023 3:01 PM, LOCATION [facility] HISTORY: M48.061: Spinal stenosis of lumbar region without neurogenic claudication preop planning COMPARISON: No prior study is available for comparison. FINDINGS: Mild levocurvature of the thoracolumbar spine. Trace retrolisthesis ofL2 on L3. Moderate disc height loss at L5-S1. Mild multilevel degenerative disc disease. Moderate facet arthropathy in the lower lumbar spine. Scattered abdominal aorta calcifications. IMPRESSION: 1.No acute fracture identified. 2.Mild to moderate degenerative disc and joint disease of the lumbarspine associated with leftward convexity of the spine. > Dictated by Jeanie Tristan MD (founder and president). I, Sarabjit Friedman MD have personally reviewed and interpreted this examination/study. > Interpreting Provider: Sarabjit Friedman MD on 1:34 PM Onesimo Mcleod MD DIAGNOSTIC IMAGING O RDERABLES * AUDIOLOGY/TYMPANOMETRY ORDER (02/13/2021 3:09 PM CDT) Narrative Bridgette Sarah AuD - 02/13/2021 3:40 PM CDT History: Jose De La Vega arrived for a hearing evaluation. 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 ??He recently underwent surgery to repair the left TM and subjectively notices improvement in his hearing. Results: Puretone air/bone conduction testing revealed a normal sloping to moderate, rising to mild sensorineural (SNHL) in the right ear and a mild sloping to severe SNHL in the left ear (conductive component noted at 4000 Hz). ??Speech understanding was good in the left ear and was not tested in the right ear. ??Compared to his previous test, improvement was noted at 500 Hz through 2000 Hz in the left ear with a slight decrease at 6000 Hz; right thresholds remained stable. Immittance measures were not performed today due to history of ear surgery. These results were discussed in detail with the patient and all pertinent questions were answered. Recommendations: 1) ENT consult. 2) Hearing evaluation annually or if a change in hearing is suspected. 3) Amplification pending medical clearance/interest. Bridgette Shun Sarah. [facility] Clinical Addressograph Operator [facility]-Department of Otolaryngology/Audiology Center for [facility] [address] [place] [address] ([facility]) [place] [address] Bridgette Sarah Shun AUDIOLOGY SERVICES O RDERABLES * MRI ORBITS OR FACE WWO CONTRAST (10/31/2020 8:23 AM CDT) Anatomical Region Laterality Modality Head Magnetic Resonan ce 10/31/2020 9:38 AM CDT Impressions 10/31/2020 1:02 PM CDT IMPRESSION: 1. Normal brain MRA. EXAM: MRA NECK WITHOUT AND WITH CONTRAST TECHNIQUE: 2 D TOF MR angiogram without contrast and 3 D TOF gadolinium bolus MR angiogram of the neck were obtained following an IV administration of 10 ml's of Gadavist. ??3 D reconstruction images were also obtained. COMPARISON: None FINDINGS: Normal branching pattern of aortic arch is noted. ??Segmental stenosis is present within the proximal intrathoracic segment of left common carotid artery representing approximately 50-60% diameter stenosis. Vertebral artery system: Origins of vertebral arteries from subclavian arteries are not well visualized. The remainder of the cervical and intracranial segments of vertebral arteries demonstrate no significant stenosis or occlusion. Right carotid artery system: Right common carotid artery, CCA bifurcation and the cervical segment of right ICA demonstrate patent flow without significant atherosclerotic disease, hemodynamically significant stenosis or occlusion. Left carotid artery system: Left common carotid artery, CCA bifurcation and the cervical segment of left ICA demonstrate patent flow without a significant atherosclerotic disease, hemodynamically significant stenosis or occlusion. IMPRESSION: 1. Segmental approximately 50-60% diameter stenosis involving the proximal intrathoracic segment of left common carotid artery. 2. Origins of vertebral arteries are not well-visualized suspicious for mild to moderate origin stenosis. 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 COMPARISON: No prior study is available for comparison at the time of this dictation. FINDINGS: The globes and extraocular muscles appear normal. The lacrimal glands appear normal. The optic nerves are symmetric in size and signal. No abnormal enhancement is identified in either optic nerve. The optic chiasm and suprasellar cistern appear normal. Meckel's cave and the cavernous sinuses appear normal. There are prominent vascular spaces in the basal ganglia. There are discrete small and patchy T2 FLAIR hyperintense parenchymal signal abnormalities within the visualized cerebral hemispheres bilaterally as well as confluent areas of T2 and T2 FLAIR hyperintensity within valerie. Again noted are findings of asymmetric opacification of left petrous apex and left mastoid. IMPRESSION: 1. Unremarkable bilateral orbits. 2. Opacification of left petrous apex and left mastoid. Dictated by Mikael Handy MD (founder and president). I, Dr. MIAN REARDON have personally reviewed and interpreted this examination/study. This report was electronically signed by MIAN REARDON ??on 10/31/2020 1:02 PM . Narrative 10/31/2020 1:02 PM CDT EXAM: MR MRA HEAD WITHOUT CONTRAST CLINICAL INDICATION: H02.402: Ptosis of left eyelid H53.2: Diplopia 60-year-old male with chronic left otitis media status left mastoid tragal cartilage grafting on 08/27/2020 TECHNIQUE: 3 D time of flight MR angiogram of the brain was obtained without IV contrast administration. ??3 D MIP reconstruction images were also generated. COMPARISON: Temporal CT study dated 03/05/2020 FINDINGS: Internal carotid arteries demonstrate patent flow without a hemodynamically significant stenosis or occlusion. Intracranial segments of vertebral arteries and basilar artery demonstrate patent flow without significant stenosis or occlusion. Incidentally noted persistent origin of the left posterior cerebral artery. Proximal segments of anterior, middle and posterior cerebral arteries demonstrate patent flow without a hemodynamically significant stenosis or occlusion. No intracranial aneurysm or AVM is noted. Procedure Note Mian Reardon MD - 10/31/2020 EXAM: MR MRA HEAD WITHOUT CONTRAST CLINICAL INDICATION: H02.402: Ptosis of left eyelid H53.2: Diplopia 60-year-old male with chronic left otitis media status left mastoid tragal cartilage grafting on 08/27/2020 TECHNIQUE: 3 D time of flight MR angiogram of the brain was obtained without IV contrast administration. 3 D MIP reconstruction images were also generated. COMPARISON: Temporal CT study dated 03/05/2020 FINDINGS: Internal carotid arteries demonstrate patent flow without a hemodynamically significant stenosis or occlusion. Intracranial segments of vertebral arteries and basilar arterydemonstrate patent flow without significant stenosis or occlusion. Incidentally noted persistent origin of the left posteriorcerebral artery. Proximal segments of anterior, middle and posterior cerebral arteries demonstrate patent flow without a hemodynamically significant stenosis or occlusion. No intracranial aneurysm or AVM is noted. IMPRESSION: 1. Normal brain MRA. EXAM: MRA NECK WITHOUT AND WITH CONTRAST TECHNIQUE: 2 D TOF MR angiogram without contrast and 3 D TOF gadolinium bolus MR angiogram of the neck were obtained following an IV administration of 10 ml's of Gadavist. 3 D reconstruction images were also obtained. COMPARISON: None FINDINGS: Normal branching pattern of aortic arch is noted. Segmental stenosis is present within the proximal intrathoracic segment of left common carotid artery representing approximately 50-60% diameter stenosis. Vertebral artery system: Origins of vertebral arteries from subclavian arteries are not well visualized. The remainder of the cervical and intracranial segments of vertebral arteries demonstrate no significant stenosis or occlusion. Right carotid artery system: Right common carotid artery, CCA bifurcation and the cervical segment of right ICA demonstrate patent flow without significant atherosclerotic disease, hemodynamically significant stenosis or occlusion. Left carotid artery system: Left common carotid artery, CCA bifurcation and the cervical segment of left ICA demonstrate patent flow without a significant atherosclerotic disease, hemodynamically significant stenosis or occlusion. IMPRESSION: 1. Segmental approximately 50-60% diameter stenosis involving theproximal intrathoracic segment of left common carotid artery. 2. Origins of vertebral arteries are not well-visualized suspicious for mild to moderate origin stenosis. 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 COMPARISON: No prior study is available for comparison at the time ofthis dictation. FINDINGS: The globes and extraocular muscles appear normal. The lacrimal glands appear normal. The optic nerves are symmetric in size and signal. No abnormal enhancement is identified in either optic nerve. The opticchiasm and suprasellar cistern appear normal. Meckel's cave and the cavernous sinuses appear normal. There are prominent vascular spaces in the basal ganglia. There are discrete small and patchy T2 FLAIR hyperintense parenchymal signal abnormalities within the visualized cerebral hemispheres bilaterally as well as confluent areas of T2 and T2 FLAIR hyperintensity within valerie. Again noted are findings of asymmetric opacification of left petrousapex and left mastoid. IMPRESSION: 1. Unremarkable bilateral orbits. 2. Opacification of left petrous apex and left mastoid. Dictated by Mikael Handy MD (founder and president). I, Dr. MIAN REARDON have personally reviewed and interpreted this examination/study. This report was electronically signed by MIAN REARDON on 10/31/2020 1:02 PM. Ciaran Thomas MD MR ORDERABLES * MRI ANGIO BRAIN ARTERIAL WO CONT (10/31/2020 8:22 AM CDT) Anatomical Region Laterality Modality Head Magnetic Resonan ce 10/31/2020 9:38 AM CDT Impressions 10/31/2020 1:02 PM CDT IMPRESSION: 1. Normal brain MRA. EXAM: MRA NECK WITHOUT AND WITH CONTRAST TECHNIQUE: 2 D TOF MR angiogram without contrast and 3 D TOF gadolinium bolus MR angiogram of the neck were obtained following an IV administration of 10 ml's of Gadavist. ??3 D reconstruction images were also obtained. COMPARISON: None FINDINGS: Normal branching pattern of aortic arch is noted. ??Segmental stenosis is present within the proximal intrathoracic segment of left common carotid artery representing approximately 50-60% diameter stenosis. Vertebral artery system: Origins of vertebral arteries from subclavian arteries are not well visualized. The remainder of the cervical and intracranial segments of vertebral arteries demonstrate no significant stenosis or occlusion. Right carotid artery system: Right common carotid artery, CCA bifurcation and the cervical segment of right ICA demonstrate patent flow without significant atherosclerotic disease, hemodynamically significant stenosis or occlusion. Left carotid artery system: Left common carotid artery, CCA bifurcation and the cervical segment of left ICA demonstrate patent flow without a significant atherosclerotic disease, hemodynamically significant stenosis or occlusion. IMPRESSION: 1. Segmental approximately 50-60% diameter stenosis involving the proximal intrathoracic segment of left common carotid artery. 2. Origins of vertebral arteries are not well-visualized suspicious for mild to moderate origin stenosis. 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 COMPARISON: No prior study is available for comparison at the time of this dictation. FINDINGS: The globes and extraocular muscles appear normal. The lacrimal glands appear normal. The optic nerves are symmetric in size and signal. No abnormal enhancement is identified in either optic nerve. The optic chiasm and suprasellar cistern appear normal. Meckel's cave and the cavernous sinuses appear normal. There are prominent vascular spaces in the basal ganglia. There are discrete small and patchy T2 FLAIR hyperintense parenchymal signal abnormalities within the visualized cerebral hemispheres bilaterally as well as confluent areas of T2 and T2 FLAIR hyperintensity within valerie. Again noted are findings of asymmetric opacification of left petrous apex and left mastoid. IMPRESSION: 1. Unremarkable bilateral orbits. 2. Opacification of left petrous apex and left mastoid. Dictated by Mikael Handy MD (founder and president). I, Dr. MIAN REARDON have personally reviewed and interpreted this examination/study. This report was electronically signed by MIAN REARDON ??on 10/31/2020 1:02 PM . Narrative 10/31/2020 1:02 PM CDT EXAM: MR MRA HEAD WITHOUT CONTRAST CLINICAL INDICATION: H02.402: Ptosis of left eyelid H53.2: Diplopia 60-year-old male with chronic left otitis media status left mastoid tragal cartilage grafting on 08/27/2020 TECHNIQUE: 3 D time of flight MR angiogram of the brain was obtained without IV contrast administration. ??3 D MIP reconstruction images were also generated. COMPARISON: Temporal CT study dated 03/05/2020 FINDINGS: Internal carotid arteries demonstrate patent flow without a hemodynamically significant stenosis or occlusion. Intracranial segments of vertebral arteries and basilar artery demonstrate patent flow without significant stenosis or occlusion. Incidentally noted persistent origin of the left posterior cerebral artery. Proximal segments of anterior, middle and posterior cerebral arteries demonstrate patent flow without a hemodynamically significant stenosis or occlusion. No intracranial aneurysm or AVM is noted. Procedure Note Mian Reardon MD - 10/31/2020 EXAM: MR MRA HEAD WITHOUT CONTRAST CLINICAL INDICATION: H02.402: Ptosis of left eyelid H53.2: Diplopia 60-year-old male with chronic left otitis media status left mastoid tragal cartilage grafting on 08/27/2020 TECHNIQUE: 3 D time of flight MR angiogram of the brain was obtained without IV contrast administration. 3 D MIP reconstruction images were also generated. COMPARISON: Temporal CT study dated 03/05/2020 FINDINGS: Internal carotid arteries demonstrate patent flow without a hemodynamically significant stenosis or occlusion. Intracranial segments of vertebral arteries and basilar arterydemonstrate patent flow without significant stenosis or occlusion. Incidentally noted persistent origin of the left posteriorcerebral artery. Proximal segments of anterior, middle and posterior cerebral arteries demonstrate patent flow without a hemodynamically significant stenosis or occlusion. No intracranial aneurysm or AVM is noted. IMPRESSION: 1. Normal brain MRA. EXAM: MRA NECK WITHOUT AND WITH CONTRAST TECHNIQUE: 2 D TOF MR angiogram without contrast and 3 D TOF gadolinium bolus MR angiogram of the neck were obtained following an IV administration of 10 ml's of Gadavist. 3 D reconstruction images were also obtained. COMPARISON: None FINDINGS: Normal branching pattern of aortic arch is noted. Segmental stenosis is present within the proximal intrathoracic segment of left common carotid artery representing approximately 50-60% diameter stenosis. Vertebral artery system: Origins of vertebral arteries from subclavian arteries are not well visualized. The remainder of the cervical and intracranial segments of vertebral arteries demonstrate no significant stenosis or occlusion. Right carotid artery system: Right common carotid artery, CCA bifurcation and the cervical segment of right ICA demonstrate patent flow without significant atherosclerotic disease, hemodynamically significant stenosis or occlusion. Left carotid artery system: Left common carotid artery, CCA bifurcation and the cervical segment of left ICA demonstrate patent flow without a significant atherosclerotic disease, hemodynamically significant stenosis or occlusion. IMPRESSION: 1. Segmental approximately 50-60% diameter stenosis involving theproximal intrathoracic segment of left common carotid artery. 2. Origins of vertebral arteries are not well-visualized suspicious for mild to moderate origin stenosis. 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 COMPARISON: No prior study is available for comparison at the time ofthis dictation. FINDINGS: The globes and extraocular muscles appear normal. The lacrimal glands appear normal. The optic nerves are symmetric in size and signal. No abnormal enhancement is identified in either optic nerve. The opticchiasm and suprasellar cistern appear normal. Meckel's cave and the cavernous sinuses appear normal. There are prominent vascular spaces in the basal ganglia. There are discrete small and patchy T2 FLAIR hyperintense parenchymal signal abnormalities within the visualized cerebral hemispheres bilaterally as well as confluent areas of T2 and T2 FLAIR hyperintensity within valerie. Again noted are findings of asymmetric opacification of left petrousapex and left mastoid. IMPRESSION: 1. Unremarkable bilateral orbits. 2. Opacification of left petrous apex and left mastoid. Dictated by Mikael Handy MD (founder and president). I, Dr. MIAN REARDON have personally reviewed and interpreted this examination/study. This report was electronically signed by MIAN REARDON on 10/31/2020 1:02 PM. Ciaran Thomas MD MR ORDERABLES * MRI ANGIO NECK W CONTRAST (10/31/2020 8:21 AM CDT) Anatomical Region Laterality Modality Head Magnetic Resonan ce 10/31/2020 9:38 AM CDT Impressions 10/31/2020 1:02 PM CDT IMPRESSION: 1. Normal brain MRA. EXAM: MRA NECK WITHOUT AND WITH CONTRAST TECHNIQUE: 2 D TOF MR angiogram without contrast and 3 D TOF gadolinium bolus MR angiogram of the neck were obtained following an IV administration of 10 ml's of Gadavist. ??3 D reconstruction images were also obtained. COMPARISON: None FINDINGS: Normal branching pattern of aortic arch is noted. ??Segmental stenosis is present within the proximal intrathoracic segment of left common carotid artery representing approximately 50-60% diameter stenosis. Vertebral artery system: Origins of vertebral arteries from subclavian arteries are not well visualized. The remainder of the cervical and intracranial segments of vertebral arteries demonstrate no significant stenosis or occlusion. Right carotid artery system: Right common carotid artery, CCA bifurcation and the cervical segment of right ICA demonstrate patent flow without significant atherosclerotic disease, hemodynamically significant stenosis or occlusion. Left carotid artery system: Left common carotid artery, CCA bifurcation and the cervical segment of left ICA demonstrate patent flow without a significant atherosclerotic disease, hemodynamically significant stenosis or occlusion. IMPRESSION: 1. Segmental approximately 50-60% diameter stenosis involving the proximal intrathoracic segment of left common carotid artery. 2. Origins of vertebral arteries are not well-visualized suspicious for mild to moderate origin stenosis. 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 COMPARISON: No prior study is available for comparison at the time of this dictation. FINDINGS: The globes and extraocular muscles appear normal. The lacrimal glands appear normal. The optic nerves are symmetric in size and signal. No abnormal enhancement is identified in either optic nerve. The optic chiasm and suprasellar cistern appear normal. Meckel's cave and the cavernous sinuses appear normal. There are prominent vascular spaces in the basal ganglia. There are discrete small and patchy T2 FLAIR hyperintense parenchymal signal abnormalities within the visualized cerebral hemispheres bilaterally as well as confluent areas of T2 and T2 FLAIR hyperintensity within valerie. Again noted are findings of asymmetric opacification of left petrous apex and left mastoid. IMPRESSION: 1. Unremarkable bilateral orbits. 2. Opacification of left petrous apex and left mastoid. Dictated by Mikael Handy MD (founder and president). I, Dr. MIAN REARDON have personally reviewed and interpreted this examination/study. This report was electronically signed by MIAN REARDON ??on 10/31/2020 1:02 PM . Narrative 10/31/2020 1:02 PM CDT EXAM: MR MRA HEAD WITHOUT CONTRAST CLINICAL INDICATION: H02.402: Ptosis of left eyelid H53.2: Diplopia 60-year-old male with chronic left otitis media status left mastoid tragal cartilage grafting on 08/27/2020 TECHNIQUE: 3 D time of flight MR angiogram of the brain was obtained without IV contrast administration. ??3 D MIP reconstruction images were also generated. COMPARISON: Temporal CT study dated 03/05/2020 FINDINGS: Internal carotid arteries demonstrate patent flow without a hemodynamically significant stenosis or occlusion. Intracranial segments of vertebral arteries and basilar artery demonstrate patent flow without significant stenosis or occlusion. Incidentally noted persistent origin of the left posterior cerebral artery. Proximal segments of anterior, middle and posterior cerebral arteries demonstrate patent flow without a hemodynamically significant stenosis or occlusion. No intracranial aneurysm or AVM is noted. Procedure Note Mian Reardon MD - 10/31/2020 EXAM: MR MRA HEAD WITHOUT CONTRAST CLINICAL INDICATION: H02.402: Ptosis of left eyelid H53.2: Diplopia 60-year-old male with chronic left otitis media status left mastoid tragal cartilage grafting on 08/27/2020 TECHNIQUE: 3 D time of flight MR angiogram of the brain was obtained without IV contrast administration. 3 D MIP reconstruction images were also generated. COMPARISON: Temporal CT study dated 03/05/2020 FINDINGS: Internal carotid arteries demonstrate patent flow without a hemodynamically significant stenosis or occlusion. Intracranial segments of vertebral arteries and basilar arterydemonstrate patent flow without significant stenosis or occlusion. Incidentally noted persistent origin of the left posteriorcerebral artery. Proximal segments of anterior, middle and posterior cerebral arteries demonstrate patent flow without a hemodynamically significant stenosis or occlusion. No intracranial aneurysm or AVM is noted. IMPRESSION: 1. Normal brain MRA. EXAM: MRA NECK WITHOUT AND WITH CONTRAST TECHNIQUE: 2 D TOF MR angiogram without contrast and 3 D TOF gadolinium bolus MR angiogram of the neck were obtained following an IV administration of 10 ml's of Gadavist. 3 D reconstruction images were also obtained. COMPARISON: None FINDINGS: Normal branching pattern of aortic arch is noted. Segmental stenosis is present within the proximal intrathoracic segment of left common carotid artery representing approximately 50-60% diameter stenosis. Vertebral artery system: Origins of vertebral arteries from subclavian arteries are not well visualized. The remainder of the cervical and intracranial segments of vertebral arteries demonstrate no significant stenosis or occlusion. Right carotid artery system: Right common carotid artery, CCA bifurcation and the cervical segment of right ICA demonstrate patent flow without significant atherosclerotic disease, hemodynamically significant stenosis or occlusion. Left carotid artery system: Left common carotid artery, CCA bifurcation and the cervical segment of left ICA demonstrate patent flow without a significant atherosclerotic disease, hemodynamically significant stenosis or occlusion. IMPRESSION: 1. Segmental approximately 50-60% diameter stenosis involving theproximal intrathoracic segment of left common carotid artery. 2. Origins of vertebral arteries are not well-visualized suspicious for mild to moderate origin stenosis. 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 COMPARISON: No prior study is available for comparison at the time ofthis dictation. FINDINGS: The globes and extraocular muscles appear normal. The lacrimal glands appear normal. The optic nerves are symmetric in size and signal. No abnormal enhancement is identified in either optic nerve. The opticchiasm and suprasellar cistern appear normal. Meckel's cave and the cavernous sinuses appear normal. There are prominent vascular spaces in the basal ganglia. There are discrete small and patchy T2 FLAIR hyperintense parenchymal signal abnormalities within the visualized cerebral hemispheres bilaterally as well as confluent areas of T2 and T2 FLAIR hyperintensity within valerie. Again noted are findings of asymmetric opacification of left petrousapex and left mastoid. IMPRESSION: 1. Unremarkable bilateral orbits. 2. Opacification of left petrous apex and left mastoid. Dictated by Mikael Handy MD (founder and president). I, Dr. MIAN REARDON have personally reviewed and interpreted this examination/study. This report was electronically signed by MIAN REARDON on 10/31/2020 1:02 PM. Ciaran Thomas MD MR ORDERABLES * (ABNORMAL) CREATININE - POCT INTERFACED (10/31/2020 7:26 AM CDT) Creatinine POCT 1.30 0.30 - 1.30 mg/dL 10/31/2020 7:52 AM CDT [facility] eGFR 56(L) >60 mL/min/1.7 3 m2 10/31/2020 7:52 AM CDT [facility] Blood BLOOD SPECIMEN / Unknown 10/31/2020 7:26 AM CDT 10/31/2020 7:52 AM CDT Ciaran Thomas MD LAB - POINT OF CARE ORDERABLES [address] [address], [facility] [phone] * CARDIAC EKG ORDER (08/29/2020 7:19 AM CDT) Narrative 08/29/2020 7:19 AM CDT Ordered by an unspecified provider. Scanned Document CARDIAC SERVICES ORD ERABLES * IV PLACEMENT PERFORMABLE (08/27/2020 9:56 AM CDT) Rena Murray APRN-CRNA - 08/27/2020 9:56 AM CDT Rena Victoria APRN-CRNA ? 08/27/2020 ??9:56 AM Peripheral IV Line Placement: Patient Location: ??OR Procedure: IV start ([id number]). Procedure Section: ?? Skin Prep: Chloraprep. Orientation: right Location: hand Local Anesthetic Used? ??No Catheter Gauge: 18 Number of Attempts: 1. Procedure Tolerance: tolerated well. Procedure Start Time: 08/27/2020 9:30 AM. Staff Section ?? Anesthesia Provider: Rena Victoria APRN-CRNA, Performed the procedure Bertin Sandoval MD GENERAL ANESTHESI A ORDERABLES * ETT LINE PERFORMABLE (08/27/2020 9:54 AM CDT) Rena Murray APRN-CRNA - 08/27/2020 9:54 AM CDT Rena Victoria APRN-CRNA ? 08/27/2020 ??9:56 AM Endotracheal Tube Placement: ? Patient Location: OR. Intubation Event Date/Time: ??08/27/2020 9:20 AM Procedure: intubation ([id number]). Procedure Section: ?? Sedation: IV sedation. Indications for Airway Management: ??airway protection Procedure pretreatments used? ??No Induction: standard IV Patient Position: ??sniffing Mask Ventilation: easy with oral airway. Blade Type: Video (CMAC) Blade Size: 4 Laryngoscopy View: grade 1 (full cords) Intubation Adjuncts: stylet Tube: endotracheal tube Placement: oral Tube type: cuff - inflated Tube Size (MM): 8 Depth of Insertion (CM): 24 Measured From: teeth Cuff volume (mL): ??7 Cuff Inflated With: air Number of Attempts: 1. Placement Verified By: direct visualization, CO2 detector, bilateral breath sounds, chest auscultation and CO2 monitor CXR Findings: ETT in proper place. Tube secured with: ??adhesive tape (tegaderm). Dentition unchanged? ??Yes Difficult Airway? ??No. Procedure Start Time: 08/27/2020 9:20 AM. Staff Section ?? Anesthesia Provider: Rena Victoria, CLOTH PATTERN MAKER-ELECTRONICS ENGINEERING TECHNOLOGIST, Performed the procedure Bertin Sandoval MD GENERAL ANESTHESI A ORDERABLES * SARS-COV-2 (COVID-19) PRE-SURGICAL/PROCEDURE (08/23/2020 1:20 PM CDT) COVID-19 PCR Not detected Not detected 08/23/2020 9:[address] [facility] Microbiology SPECIMEN FROM NASOPHARYNGEAL STRUCTURE / Unknown Collection / Unknown 08/23/2020 1:20 PM CDT 08/23/2020 2:[address] [facility] - 08/23/2020 9:33 PM CDT This nucleic acid amplification assay performance was validated by [facility]. This test has been authorized by the Food and Drug administration (FDA)under an Emergency??Use Authorization (EUA). This test has been validated in accordance with the FDA's guidance document Policy for Diagnostic Testing in Laboratories Certified to perform High Complexity Testing under CLIA prior to Emergency Use Authorization for Coronavirus Disease-2019 during the Public Health Emergency issued on July 28, 2019. FDA independent review of this validation is pending. This test is only authorized for the duration of time the declaration that circumstances exist justifying the authorization of emergency use of in vitro diagnostic tests for detection of SARS-CoV-2 virus and/or diagnosis of COVID-19 infection under section 564(b)(1) of the Act, 21 U.S.C 360bbb-3 (b)(1), unless the authorization is terminated or revoked sooner. Fact Sheets for this EUA assay are available upon request. Bertin Sandoval MD LAB - MICROBIOLOG Y ORDERABLES [facility] [address] [place] [address], [facility] [phone] * (ABNORMAL) CBC W/O DIFFERENTIAL (08/21/2020 9:08 AM CDT) WBC 8.1 3.5 - 10.5 10? 3 /uL 08/21/2020 9:42 AM [facility] RBC 4.29(L) 4.30 - 5.70 10? 6 /uL 08/21/2020 9:42 AM [facility] Hemoglobin 12.9(L) 13.5 - 17.5 g/dL 08/21/2020 9:42 AM [facility] Hematocrit 40.1 39.0 - 50.0 % 08/21/2020 9:42 AM [facility] MCV 93.5 81.0 - 97.0 fL 08/21/2020 9:42 AM [facility] MCH 30.1 28.0 - 34.0 pg 08/21/2020 9:42 AM [facility] MCHC 32.2 32.0 - 36.0 g/dL 08/21/2020 9:42 AM [facility] Platelet Count 238 150 - 400 10? 3 /uL 08/21/2020 9:42 AM [facility] RDW-SD 45.8 36.0 - 50.0 fL 08/21/2020 9:42 AM [facility] RDW-CV 13.5 11.2 - 14.8 % 08/21/2020 9:42 AM [facility] MPV 11.3 9.3 - 12.8 fL 08/21/2020 9:42 AM [facility] nRBC Absolute 0.00 0 10? 3 /uL 08/21/2020 9:42 AM [facility] nRBC Auto 0.0 0 /100 WBC 08/21/2020 9:42 AM [facility] Blood BLOOD SPECIMEN / Unknown Lab Venipuncture / Unknown 08/21/2020 9:08 AM CDT 08/21/2020 9:30 AM T Paco Ac CLOTH PATTERN MAKER-OIL PIPELINE OPERATOR LAB - HEMATOL OGY ORDERABLES [facility] [address] [place] [address], [facility] [phone] * BASIC METABOLIC PANEL (CALCIUM TOTAL) (08/21/2020 9:08 AM CDT) BUN 25 7 - 26 mg/dL 08/21/2020 10:04 AM [facility] Creatinine 1.2 0.6 - 1.2 mg/dL 08/21/2020 10:04 AM [facility] Sodium 139 136 - 145 mmol/L 08/21/2020 10:04 AM [facility] Potassium 4.2 3.5 - 4.5 mmol/L 08/21/2020 10:04 AM [facility] Chloride 103 98 - 107 mmol/L 08/21/2020 10:04 AM [facility] CO2 28 22 - 29 mmol/L 08/21/2020 10:04 AM [facility] Glucose 93 70 - 115 mg/dL 08/21/2020 10:04 AM [facility] Calcium 8.8 8.4 - 10.2 mg/dL 08/21/2020 10:04 AM [facility] Anion Gap 12 8 - 18 08/21/2020 10:04 AM [facility] BUN/Creatinine Ratio 21 7 - 23 08/21/2020 10:04 AM [facility] Osmolality Calculated 292 270 - 300 mOsm/kg 08/21/2020 10:04 AM [facility] eGFR >60 >60 mL/min/1.7 3 m2 08/21/2020 10:04 AM [facility] Blood BLOOD SPECIMEN / Unknown Lab Venipuncture / Unknown 08/21/2020 9:08 AM CDT 08/21/2020 9:30 AM T Paco Ac CLOTH PATTERN MAKER-OIL PIPELINE OPERATOR LAB - BOOM STORAGE RY ORDERABLES [facility] [address] [place] [id number], [facility] [phone] * EKG 12-LEAD (08/21/2020 8:42 AM CDT) Ventricular Rate 82 BPM [facility] MUSE Atrial Rate 82 BPM [facility] M[facility] P-R Interval 188 ms [facility] QRS Duration ms 96 ms [facility] Q-T Interval ms 382 ms [facility] QTC Calculation (Bezet) 446 ms [facility] Calculated P [place] 57 degrees [facility] Calculated R [place] 75 degrees [facility] Calculated T [place] 73 degrees [facility] Interpretation EKG NORMAL SINUS RHYTHM NORMAL ECG NO PREVIOUS ECGS AVAILABLE Confirmed by Aneudy Tan ([id number]) on 08/23/2020 6:27:09 PM [facility] 08/21/2020 8:42 AM CDT 08/23/2020 6:27 PM CDT Paco Ac CLOTH PATTERN MAKER-OIL PIPELINE OPERATOR ECG ORDERABLE S [facility] M[facility] * AUDIOLOGY/TYMPANOMETRY ORDER (06/30/2020 10:54 AM CLOTH MERCERIZING SUPERVISOR) Narrative Bridgette Sarah AuD - 06/30/2020 10:57 AM CLOTH MERCERIZING SUPERVISOR History: Jose De La Vega is a 60 year old male arrived for a hearing evaluation. ?? 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 ??He feels as if his hearing has gotten worse since he has a more difficult time with conversations. Results: Puretone air/bone conduction testing in the left ear revealed a mild sloping to severe rising to moderately severe mixed hearing loss. ?? Thresholds are essentially stable from previous tests with the exception of a decrease at 1000 Hz in the left ear. ??Speech understanding remains good in the left ear. Right air conduction thresholds were stable with the exception of a decrease at 6000 Hz. ??No other testing performed on this ear today. Immittance measures revealed a Type Ad tympanogram in the right ear, indicating normal middle ear function. ??Results for the left ear revealed a B with large ECV tympanogram, indicating abnormal middle ear function in that ear. Recommendations: 1) ENT consult. 2) Hearing evaluation annually/per medical recommendation. ?? 3) Amplification pending medical clearance/interest. Shun Monk. [facility] Clinical Addressograph Operator [facility]-Department of Otolaryngology/Audiology [facility] [address] [facility] [place] [address] Bridgette Sarah [facility] AUDIOLOGY SERVICES O RDERABLES * MUSK ANTIBODY IGG (06/09/2020 11:09 AM CLOTH MERCERIZING SUPERVISOR) Muscle-Specific Kinase (MuSK) Ab, IgG 0.00 0.00 - 0.03 nmol/L 06/13/2020 12:37 PM CLOTH MERCERIZING SUPERVISOR [facility] ([facility]) Comment: INTERPRETIVE INFORMATION: Muscle-Specific Kinase (MuSK) Ab, ?IgG Negative . . . . . . . 0.00-0.03 nmol/L Positive . . . . . . . 0.04 nmol/L or greater Muscle-specific kinase (MuSK) antibody is found in a subset of patients with myasthenia gravis, primarily those seronegative for muscle acetylcholine receptor (AChR) antibody. Decreasing antibody levels may be associated with therapeutic response; therefore, clinical correlation must be strongly considered. A negative test result does not rule out a diagnosis of myasthenia gravis. Test developed and characteristics determined by [employer]. See Compliance Statement A: [email or web address]/CS Performed By: [employer] [address] [place] [address] Casework Manager: Rachel Liu MD Blood BLOOD SPECIMEN / Unknown Lab Venipuncture / Unknown 06/09/2020 11:09 AM CLOTH MERCERIZING SUPERVISOR 06/09/2020 12:46 PM CLOTH MERCERIZING SUPERVISOR Ciaran Thomas MD LAB - CHEMISTRY [facility]) [address] [place] [address], [facility] * (ABNORMAL) FREE LIGHT CHAINS QUANT URINE (05/16/2020 1:22 PM CLOTH MERCERIZING SUPERVISOR) Collection Time Hours Random hr 2:09 AM CLOTH MERCERIZING SUPERVISOR [employer] ([facility]) Volume 24 Hour Urine Random mL 04/30 2:09 AM CLOTH MERCERIZING SUPERVISOR [facility] [employer] [facility]) Protein Total Urine See Note <=150 mg/d 05/18/2020 2:09 AM [facility] ([facility]) Comment: Total Protein = 62.23 mg/L based on random urine. Reference intervals not applicable for random urines. INTERPRETIVE INFORMATION: Total Protein Total urinary protein is determined turbidimetrically by adding the albumin and kappa and/or lambda light chains. This value may not agree with the total protein as determined by chemical methods, which characteristically underestimate urinary light chains. Free Festus Light Chains Urine 33.34(H) 0.00 - 32.90 mg/L 05/18/2020 2:09 AM [facility] ([facility]) Free Urinary Festus Excretion/Day See Note mg/d 05/18/2020 2:09 AM [facility] ([facility]) Comment: Unable to quantitate free light chain excretion per day on a random urine sample. Free Lambda Light Chains Urine 2.89 0.00 - 3.79 mg/L 05/18/2020 2:09 AM [facility] ([facility]) Free Urinary Lambda Excretion/Day See Note mg/d 05/18/2020 2:09 AM [facility] ([facility]) Comment: Unable to quantitate free light chain excretion per day on a random urine sample. INTERPRETIVE INFORMATION: Free Light Chains, Quantitative, ?Urine Results of urine free light chain testing can be used to monitor disease progression or response to therapy in patients for whom urine electrophoresis is unable to provide reliable Bence Escobar Protein quantification. The results of urine kappa and lambda free light chains must be interpreted in conjunction with urine immunofixation. The free light chain quantitative values may be misleading in specimens with high levels of urinary polyclonal free light chains, and absent Bence Escobar protein by immunofixation; therefore correlation with urine immunofixation is required to identify inconsistent results. Performed by [employer] [facility], [address] [place] [id number] [email or web address], Rachel Liu MD, Lab. Director Urine TIMED URINE SPECIMEN / Unknown Timed Urine Volume Measurement / Unknown 05/16/2020 1:22 PM CLOTH MERCERIZING SUPERVISOR 05/16/2020 1:30 PM CLOTH MERCERIZING SUPERVISOR Ciaran Thomas MD LAB - URINE CHEMISTR Y ORDERABLES Performing Organization Address City/[facility]/ZIP Co de Phone Number [facility] ([facility]) [address] [place] [address], [facility] * MAXIMINO URINE (05/16/2020 1:22 PM CLOTH MERCERIZING SUPERVISOR) Immunofixation Urine Normal Pattern Normal Pattern 06/18/2020 8:29 AM CLOTH MERCERIZING SUPERVISOR [facility] Comment: Urine immunofixation electrophoresis shows polyclonal IgG, IgA, free kappa and lambda light chains. No monoclonal immunoglobulins detected. ??Non-secretory myeloma (NSM) cannot be excluded on the basis of this result. Measurements of serum free kappa and lambda immunoglobulin light chains can identify up to 70% of patients with NSM. Zhao Cleveland DO PGY-4 *The electrophoresis pattern and the interpretation have been reviewed and verified by the teaching physician. Urine URINE / Unknown Collection / Unknown 05/16/2020 1:22 PM CLOTH MERCERIZING SUPERVISOR 05/16/2020 1:30 PM CLOTH MERCERIZING SUPERVISOR Ciaran Thomas MD LAB - URINE CHEMISTR Y ORDERABLES Performing Organization Address [facility]/ZIP Co de Phone Number [facility] [address] [place] [phone], [place] [phone] * IMMUNOFIXATION BLOOD (05/16/2020 1:13 PM CLOTH MERCERIZING SUPERVISOR) Immunofixation Serum Normal Pattern Normal Pattern 05/26/2020 1:14 PM CLOTH MERCERIZING SUPERVISOR [facility] Comment: No monoclonal immunoglobulins detected by serum immunotyping. Sandeep Junior PhD, [facility] Clinical Home Health Administrator lapping machine operator *The electrophoresis pattern and the interpretation have been reviewed and verified by the teaching physician. Blood BLOOD SPECIMEN / Unknown Lab Venipuncture / Unknown 05/16/2020 1:13 PM CLOTH MERCERIZING SUPERVISOR 05/16/2020 1:32 PM CLOTH MERCERIZING SUPERVISOR Ciaran Thomas MD LAB - CHEMISTRY ORDE NATALIA Performing Organization Address City/[facility]/ZIP Co de Phone Number [facility] [address] [place] [phone], [place] [phone] * ACETYLCHOLINE RECEPTOR MODULATING ANTIBODY (05/16/2020 1:13 PM CLOTH MERCERIZING SUPERVISOR) Pathologist [facility] Acetylcholine Modulating Antibody <12 0 - 20 % 05/28/2020 10:09 AM CLOTH MERCERIZING SUPERVISOR [facility] ([facility]) Comment: ? Negative: ? <21 ? Equivocal: ?21 - 25 ? Positive: ? >25 Blood BLOOD SPECIMEN / Unknown Lab Venipuncture / Unknown 05/16/2020 1:13 PM CLOTH MERCERIZING SUPERVISOR 05/16/2020 1:32 PM CLOTH MERCERIZING SUPERVISOR Narrative [facility] ([facility]) - 05/28/2020 10:09 AM CLOTH MERCERIZING SUPERVISOR Performed at: ??01 - [facility] [address] ??[id number] Auto Crane Driver: Robin Price MD, Phone: ??[phone] Ciaran Thomas MD LAB - SEROLOGY ORDER CATRINA Performing Organization Address [facility]/State/[facility] Co de Phone Number [facility]) [address] [phone] * ACETYLCHOLINE RECEPTOR BLOCKING ANTIBODY (05/16/2020 1:13 PM CLOTH MERCERIZING SUPERVISOR) Pathologist [facility] Acetylcholine Blocking Antibody 22 0 - 25 % 05/21/2020 3:08 PM CLOTH MERCERIZING SUPERVISOR [facility] ([facility]) Comment: ? Negative: ?0 - 25 ? Borderline: ?? 26 - 30 ? Positive: ? >30 Blood BLOOD SPECIMEN / Unknown Lab Venipuncture / Unknown 05/16/2020 1:13 PM CLOTH MERCERIZING SUPERVISOR 05/16/2020 1:32 PM CLOTH MERCERIZING SUPERVISOR Narrative [facility] ([facility]) - 05/21/2020 3:08 PM CLOTH MERCERIZING SUPERVISOR Test(s) [id number] Blocking Abs, Serum results are labeled for research purposes only by the assay's rn new grad. The performance characteristics of this assay have not been established by the rn new grad. The result should not be used for treatment or for diagnostic purposes without confirmation of the diagnosis by another medically established diagnostic product or procedure. The performance characteristics were determined by [facility]. Performed at: ??01 - [address] ??[id number] Auto Crane Driver: Robin Price MD, Phone: ??[phone] Ciaran Thomas MD LAB - SEROLOGY ORDER CATRINA Performing Organization Address City/State/[facility] Co de Phone Number [facility]) [address] [place] [address] * ACETYLCHOLINE RECEPTOR BINDING ANTIBODY (05/16/2020 1:13 PM CLOTH MERCERIZING SUPERVISOR) Pathologist [facility] Acetylcholine Binding Antibody 0.10 0.00 - 0.24 nmol/L 05/20/2020 4:10 PM CLOTH MERCERIZING SUPERVISOR [facility] ([facility]) Comment: ? Negative: ?? 0.00 - 0.24 ? Borderline: 0.25 - 0.40 ? Positive: ? >0.40 Blood BLOOD SPECIMEN / Unknown Lab Venipuncture / Unknown 05/16/2020 1:13 PM CLOTH MERCERIZING SUPERVISOR 05/16/2020 1:32 PM CLOTH MERCERIZING SUPERVISOR Narrative [facility] ([facility]) - 05/20/2020 4:10 PM CLOTH MERCERIZING SUPERVISOR Performed at: ??01 - [facility] [address] ??[id number] Auto Crane Driver: Robin Price MD, Phone: ??[phone] Ciaran Thomas MD LAB - SEROLOGY ORDER CATRINA Performing Organization Address [facility]/ZIP Co de Phone Number [facility] ([facility]) [address] [place] [address] * (ABNORMAL) METHYLMALONIC ACID BLOOD (05/16/2020 1:13 PM CLOTH MERCERIZING SUPERVISOR) Pathologist [facility] Methylmalonic Acid 0.62(H) 0.00 - 0.40 umol/L 05/19/2020 7:18 AM CLOTH MERCERIZING SUPERVISOR [facility] ([facility]) Comment: Slight elevation 0.41-0.99 umol/L ? Consistent with mild vitamin B12 deficiency, renal ? insufficiency, or intravascular volume contraction. Moderate elevation 1.00-9.99 umol/L ?Consistent with mild vitamin B12 deficiency. Massive elevation - Greater than or equal to 10 umol/L ?Consistent with significant vitamin B12 deficiency ?or with inborn errors of metabolism. INTERPRETIVE INFORMATION: MMA Serum/Plasma, ?Vitamin B12 Status Test developed and characteristics determined by [employer] [facility]. See Compliance Statement B: [employer] [place]/ Performed By: [facility] [address] [place] [address] Casework Manager: aRchel Liu MD Blood BLOOD SPECIMEN / Unknown Lab Venipuncture / Unknown 05/16/2020 1:13 PM CLOTH MERCERIZING SUPERVISOR 05/16/2020 1:32 PM CLOTH MERCERIZING SUPERVISOR Ciaran Thomas MD LAB - CHEMISTRY ORDPhilip FISHER Performing Organization Address [facility]/ZIP Co de Phone Number [facility] ([facility]) [address] * ALDOLASE (05/16/2020 1:13 PM CLOTH MERCERIZING SUPERVISOR) Pathologist [facility] Aldolase 6.3 1.5 - 8.1 U/L 05/17/2020 8:36 PM CLOTH MERCERIZING SUPERVISOR [facility] ([facility]) Comment: REFERENCE INTERVAL: Aldolase Access complete set of age- and/or gender-specific reference intervals for this test in the [facility] Laboratory Test Directory ([employer]). Performed By: [employer] [facility] [address] [place] [address] Casework Manager: Rachel Liu MD Blood BLOOD SPECIMEN / Unknown Lab Venipuncture / Unknown 05/16/2020 1:13 PM CLOTH MERCERIZING SUPERVISOR 05/16/2020 1:32 PM CLOTH MERCERIZING SUPERVISOR Ciaran Thomas MD LAB - CHEMISTRY FRAN FISHER Performing Organization Address [facility] Co de Phone Number [facility] Diagnostic [facility]) [address] [place] [address] * (ABNORMAL) KAPPA/LAMBDA LITE CHAIN FREE PANEL (05/16/2020 1:13 PM CLOTH MERCERIZING SUPERVISOR) Festus Quant Free Light Chain 35.73(H) 3.30 - 19.40 mg/L 05/18/2020 2:07 AM CLOTH MERCERIZING SUPERVISOR [facility] ([facility]) Comment: INTERPRETIVE INFORMATION: Festus Qnt Free Light Chains Undetected antigen excess is a rare event but cannot be excluded. Free light chain results should always be interpreted in conjunction with other clinical and laboratory findings. Lambda Free Light Chain Quantitative 19.09 5.71 - 26.30 mg/L 05/18/2020 2:07 AM CLOTH MERCERIZING SUPERVISOR [facility] ([facility]) Festus/Lambda Free Light Chain ratio 1.87(H) 0.26 - 1.65 05/18/2020 2:07 AM CLOTH MERCERIZING SUPERVISOR [facility] ([facility]) Comment: Performed By: [employer] [facility] [address] [place] [address] Casework Manager: Rachel Liu MD Blood BLOOD SPECIMEN / Unknown Lab Venipuncture / Unknown 05/16/2020 1:13 PM CLOTH MERCERIZING SUPERVISOR 05/16/2020 1:33 PM CLOTH MERCERIZING SUPERVISOR Ciaran Thomas MD LAB - CHEMISTRY FRAN FISHER Performing Organization Address City/[facility]/ZIP Co de Phone Number [facility] ([facility]) [address] [place] [address] [place] * (ABNORMAL) CK BLOOD (05/16/2020 1:13 PM CLOTH MERCERIZING SUPERVISOR) CK Total 27(L) 30 - 200 Units/L 05/16/2020 2:01 PM CLOTH MERCERIZING SUPERVISOR [facility] Blood BLOOD SPECIMEN / Unknown Lab Venipuncture / Unknown 05/16/2020 1:13 PM CLOTH MERCERIZING SUPERVISOR 05/16/2020 1:32 PM CLOTH MERCERIZING SUPERVISOR Ciaran Thomas MD LAB - CHEMISTRY FRAN FISHER Performing Organization Address City/[facility]/ZIP Co de Phone Number [address] [address], [facility] [phone] * VITAMIN B12 (05/16/2020 1:13 PM CLOTH MERCERIZING SUPERVISOR) Vitamin B12 409 213 - 816 pg/mL 05/16/2020 2:25 PM CLOTH MERCERIZING SUPERVISOR [facility] Blood BLOOD SPECIMEN / Unknown Lab Venipuncture / Unknown 05/16/2020 1:13 PM CLOTH MERCERIZING SUPERVISOR 05/16/2020 1:32 PM CLOTH MERCERIZING SUPERVISOR Ciaran Thomas MD LAB - CHEMISTRY FRNA FISHER Performing Organization Address [facility]/ZIP Co de Phone Number [address] [address], [facility] [phone] * CT TEMPORAL BONES WO CONTRAST (03/05/2020 2:17 PM CDT) Anatomical Region Laterality Modality Head Computed Tomogra phy 03/05/2020 2:50 PM CDT Impressions 03/05/2020 5:06 PM CDT IMPRESSION: 1. Thickened and perforated left tympanic membrane with soft tissue density in Prussak's space of the left middle ear cavity and partially opacified mastoid air cells is consistent with left otomastoiditis. Cholesteatoma cannot be excluded. The left the scutum is preserved. 2. Normal right temporal bone. Report dictated by Ramses Kelly MD (founder and president). I, Dr. SHYLA GARRISON have personally reviewed and interpreted this examination/study. This report was electronically signed by SHYLA GARRISON ??on 03/05/2020 5:06 PM . Narrative 03/05/2020 5:06 PM CDT EXAMINATION: HIGH-RESOLUTION CT OF THE TEMPORAL BONES WITHOUT CONTRAST HISTORY: H72.92: Perforated tympanic membrane on examination, left TECHNIQUE: CT of the temporal bones was performed without contrast followed by high-resolution axial and coronal reconstruction of the images by the technologist using 0.63 mm slice thickness images. COMPARISON: No prior study is available for comparison at the time of this dictation. FINDINGS: On the right side, the external auditory canal and auricle appear normal. The tympanic membrane and scutum appear normal. The mastoid air cells and the middle ear cavity including the middle ear ossicles appear normal. Tegmen tympani and tegmen mastoideum are intact. Air is visible in the right eustachian tube. The bony labyrinth, internal auditory canal, and petrous apex appear normal. There is no dehiscence of the semicircular canals. The vestibular aqueduct, carotid canal, jugular foramen, and course of the facial nerve appear normal. On the left side, the auricle appear normal. Mucosal thickening of the extrarenal auditory canal is seen The tympanitic membrane is thickened and perforated. The mastoid air cells are partially opacified. The tegmen mastoideum is intact. There is opacification of left Prussak's space and mesotympanum around the oval window and stapes. The remainder of the left middle ear cavity is aerated and tegmen tympani is intact. Aditus ad antrum on the left side is aerated and clear. The middle ear ossicles appear normal. The bony labyrinth, internal auditory canal, and petrous apex appear normal. There is no evidence of dehiscence of semicircular canals. The vestibular aqueduct, carotid canal, jugular foramen, and course of the facial nerve appear normal. The visualized portions of the skull base and sinuses appear normal. No soft tissue abnormality is identified. Procedure Note Shyla Garrison MD - 03/05/2020 EXAMINATION: HIGH-RESOLUTION CT OF THE TEMPORAL BONES WITHOUT CONTRAST HISTORY: H72.92: Perforated tympanic membrane on examination, left TECHNIQUE: CT of the temporal bones was performed without contrast followed by high-resolution axial and coronal reconstruction of theimages by the technologist using 0.63 mm slice thickness images. COMPARISON: No prior study is available for comparison at the time ofthis dictation. FINDINGS: On the right side, the external auditory canal and auricle appearnormal. The tympanic membrane and scutum appear normal. The mastoid air cellsand the middle ear cavity including the middle ear ossicles appear normal. Tegmen tympani and tegmen mastoideum are intact. Air is visible in the right eustachian tube. The bony labyrinth, internal auditory canal, and petrous apex appear normal. There is no dehiscence of the semicircular canals. The vestibular aqueduct, carotid canal, jugular foramen, and course of the facial nerve appear normal. On the left side, the auricle appear normal. Mucosal thickening of the extrarenal auditory canal is seen The tympanitic membrane is thickenedand perforated. The mastoid air cells are partially opacified. The tegmen mastoideum is intact. There is opacification of left Prussak's space and mesotympanum around the oval window and stapes. The remainder of theleft middle ear cavity is aerated and tegmen tympani is intact. Aditus ad antrum on the left side is aerated and clear. The middle ear ossicles appear normal. The bony labyrinth, internal auditory canal, and petrous apex appear normal. There is no evidence of dehiscence of semicircular canals. The vestibular aqueduct, carotid canal, jugular foramen, and course of the facial nerve appear normal. The visualized portions of the skull base and sinuses appear normal. No soft tissue abnormality is identified. IMPRESSION: 1. Thickened and perforated left tympanic membrane with soft tissue density in Prussak's space of the left middle ear cavity and partially opacified mastoid air cells is consistent with left otomastoiditis. Cholesteatoma cannot be excluded. The left the scutum is preserved. 2. Normal right temporal bone. Report dictated by Ramses Kelly MD (founder and president). IDr. SHYLA have personally reviewed and interpreted this examination/study. This report was electronically signed by SHYLA GARRISON on 03/05/2020 5:06 PM . Miguel Angel Rodriguez MD CT ORDERABLES * CO EAR MICROSCOPY EXAMINATION (02/15/2020 2:12 PM CDT) Narrative Bertin Sandoval MD - 02/15/2020 2:12 PM CDT Bertin Sandoval MD ? 02/15/2020 ??3:15 PM Binocular microscopy exam Due to the findings on physical examination, in correlation with the patient's symptomatology, the decision was made to perform a procedure today in clinic. Verbal consent obtained prior to starting procedure. Procedure Note: Pre Op Dx: Chronic otitis media, otorrhea, tinnitus Post Op Dx: same Procedure performed: Microscopic ear exam, bilateral Surgeon: Jaime Procedure in detail: Jose De La Vega is a 59 year old male with a history of ear symptoms who presented today in follow up about chronic otitis media, otorrhea and tinnitus. The risks, benefits, alternatives, and indications of the procedure were discussed in great detail and the patient understood these and wished to proceed. First, the microscope was used to inspect the external auditory canal on the right side. This was found to be normal without evidence of lesions or narrowing. The tympanic membrane was inspected. This was found to show normal landmarks with a pearly white transparent appearance. Next the microscope was used to inspect the external auditory canal on the left side. ??This was found to be normal without evidence of lesions or narrowing. The tympanic membrane was inspected. This was found to show abnormal appearance with perforation about approximately 35% of the anteroinferior TM. I, Dr. Sandoval, was present for the entire procedure, which the patient tolerated well. The above note reflects a procedure that I performed in clinic. The resident surgeon assisted with the procedure and/or the procedural note. I, Bertin Sandoval MD, ??was present for, and participated in, the entirety of the procedure. Miguel Angel Rodriguez MD PROCEDURE/MINOR LIVIER GICAL ORDERABLES * AUDIOLOGY/TYMPANOMETRY ORDER (02/15/2020 12:29 PM CDT) Narrative Bridgette Sarah AuD - 02/15/2020 1:00 PM CDT History: Jose De La Vega is a 59 year old male arrived for a hearing evaluation. The patient notes otalgia, hearing loss, tinnitus, and drainage , primarily in the left ear. ??He has a known history of TM perforation (left). There is a history of noise exposure. There is not a family history of hearing loss. ?? There is not a history of surgery on either ear(s). 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 ??Speech understanding was excellent in the right ear and good in the left ear. Immittance measures revealed a Type A tympanogram in the right ear and a B with large ECV tympanogram in the left ear. Recommendations: 1) ENT consult. 2) Hearing evaluation per medical treatment or recommendation, annually, or if a change in hearing is suspected. 3) Amplification pending medical clearance/interest. Shun Monk. [facility] Clinical Addressograph Operator [facility]-Department of Otolaryngology/[facility] [address] [place] [address] Bridgette Hoffmann [facility]UD[facility]OLOGY [facility] Care Teams Brand Representative Relationship Specialty Start Date End Date Shala Diaz MD [address] [place] [phone] PCP - General 08/10/19 Ben Lindsay MD [facility] [address] [address] Cardiovascular Disease 07/08/23
[2024-07-03 17:30] LABS: Lactic Acid Reflex 0.8 mmol/L (0.7-2.0)
[2024-07-03 17:33] LABS: Alanine Aminotransferase 19 U/L (6-50); Albumin Level 4.1 g/dL (3.5-5.1); Alkaline Phosphatase 99 U/L (38-126); Anion Gap 7 mmol/L (4-12); Aspartate Amino Transferase 26 U/L (17-59); Bilirubin,Total 0.6 mg/dL (0.2-1.3); Blood Urea Nitrogen 27 mg/dL (9-20); Calcium 8.7 mg/dL (8.4-10.2); Carbon Dioxide 28 mmol/L (22-30); Chloride 102 mmol/L (98-107); Estimated CRCL calculation 55 ml/min; Estimated Glomerular Filt Rate 52; Glucose 132 mg/dL (65-110); Magnesium 2.3 mg/dL (1.6-2.3); Potassium 4.4 mmol/L (3.4-5.0); Sodium 137 mmol/L (137-145)
[2024-07-03 17:34] LABS: Prothrombin Time 13.8 Seconds (11.1-14.7)
[2024-07-03 17:35] LABS: Partial Thromboplastin Time 26.5 Seconds (22.3-36.8)
[2024-07-03] MEDS: FUROSEMIDE INJ 40 MG/4 ML VIAL IV PUSH (17:42)
[2024-07-03 17:49] LABS: Troponin I 0.092 ng/mL (0.000-0.034)
[2024-07-03] MEDS: CEFEPIME 2 GM/NS 50 ML 2 GM/50 ML BAG IVPB (17:52)
[2024-07-03 18:02] LABS: CRP < 0.5 mg/dL (<1.0)
[2024-07-03 18:03] LABS: Base Excess ABG -0.3 mEq/l (+/-2.0); Carboxyhemoglobin 3.6 % THb (0-2.0); Fractional Inspired Oxygen 30 %; HCO3 ABG 27.3 mEq/l (22.0-26.0); Methemoglobin ABG 0.3 %THb (0-1.5); Oxygen Content ABG 14.3 %vol (16.0-22.0); PCO2 ABG 58.7 mmHg (35.0-45.0); PO2 ABG 57.9 mmHg (80.0-100.0); PO2 FiO2 Ratio Arterial Blood 1.93 %; Reduced Hemoglobin 9.4 %THb (0-5.0); Total Hemoglobin 11.7 g/dL (12.0-18.0)
[2024-07-03 18:04] LABS: Oxygen Saturation ABG 86.2 % (95.0-100.0); Oxyhemoglobin 86.7 % THb (90.0-100.0); pH ABG 7.285 (7.350-7.450)
[2024-07-03 18:05] LABS: Device BIPAP; Modified Allen's Test Pass; Site Drawn RIGHT RADIAL
[2024-07-03 18:19] LABS: NT Pro B Type Natriuretic Pept 4130 pg/mL (19.9-100)
[2024-07-03 18:31] LABS: Expiratory Pressure 8 cmH2O; Inspiratory Pressure 16 cmH2O
[2024-07-03] MEDS: ALBUTEROL SULFATE NEB 2.5 MG/3 ML INH 10 MG INHALATION (18:32)
--- NOTE | 2024-07-03 18:32 | ED.SOB ---
HPI - SOB/Dyspnea General Chief Complaint: Shortness of Breath/Dyspnea Stated Complaint: Diff resps on CPAP Time Seen by Provider: 07/03/24 17:05 Source: patient and EMS Mode of arrival: EMS Limitations: no limitations History of Present Illness HPI Narrative: This is a 64-year-old male, with history of COPD, CHF and bipolar disorder, wearing of 3 L of oxygen at home, brought in by EMS for shortness of breath. EMS reports the patient has been feeling worse for the past week. He was recently treated with antibiotics for a pneumonia. On arrival the patient was 84% on room air. They patient patient on CPAP applied 1 in of nitro paste and transported the patient. He also complains of mild dull chest pain but has no other complaints at this time. Related Data Allergies Allergy/AdvReac Type Severity Reaction Status Date / Time piroxicam Allergy Unknown Unknown Verified 07/03/24 17:10 Review of Systems Review of Systems: All systems reviewed & are unremarkable except as noted in HPI and below PMFSH Past Medical History Medical History Bipolar disorder CHF (congestive heart failure) COPD (chronic obstructive pulmonary disease) Surgical History Surgical History No significant past surgical history Exam Narrative: GENERAL: Well-developed, well-nourished, in acute respiratory distress HEAD: Normocephalic, atraumatic. EYES: PERRLA and EOMI. NECK: Supple. No JVD CHEST: tachypneic with intercostal retractions and increased work of breathing. Diminished breath sounds in all lung clark with x-ray Guy wheeze. HEART: Regular rate with irregular rhythm. No murmur heard. Normal peripheral pulses. ABDOMEN: Soft, nontender, nondistended, normal active bowel sounds. EXTREMITIES: Normal range of motion. trace bilateral lower extremity edema SKIN: Warm, dry, no rash. NEURO: Alert and oriented x3. No focal deficit. Moving all 4 limbs spontaneously PSYCH: Normal mood and affect. Course Course Emergency Course: 17:02 - Bedside ultrasound by me showed B-lines in the bilateral anterior lung clark. EPSS appears to be normal. There is no noted pericardial effusion. I suspect a combined COPD CHF picture. Will place on BiPAP, obtain ABG, begin nebs, steroids and magnesium and reassess. I discussed with the patient the possibility of intubation, with which he agrees. 18:20 - Initial ABG demonstrated respiratory acidosis with pH of 7.27 and pCO2 of 60. Bicarb 27.4. repeat ABG 45 minutes later demonstrated pH of 7.28 with pCO2 of 58.7, marginally improved. Will continue with nebs, BiPAP and reassess. 18:47 - Chest x-ray not concerning for acute cardiopulmonary process. CBC demonstrates mild anemia with hemoglobin 11.65. Chemistries demonstrate mild creatinine elevation of 1.37 better otherwise unremarkable. Lactic acid within normal limits. Initial troponin is 0.092. I suspect this is due to demand. BNP elevated at 4130. Urinalysis shows trace glucose but is otherwise unremarkable. I discussed the patient with building maintenance repairer, Dr. Zamarripa who accepts admission to ICU. 19:53 - I discussed the patient with hospitalist MAKENZIE Cruz who accepts admission. Vital Signs Vital signs: Vital Signs Temperature 98.4 F 07/03/24 16:54 Pulse Rate 110 H 07/03/24 16:54 Respiratory Rate 23 H 07/03/24 16:54 Blood Pressure 129/94 H 07/03/24 16:54 Pulse Oximetry 98 07/03/24 16:54 Oxygen Delivery BiPAP 07/03/24 16:54 Temperature 98.4 F 07/03/24 16:54 Pulse Rate 131 H 07/03/24 18:46 Respiratory Rate 20 07/03/24 18:46 Blood Pressure 120/94 H 07/03/24 18:46 Pulse Oximetry 91 07/03/24 18:46 Oxygen Delivery BiPAP 07/03/24 17:45 MDM - SOB/Dyspnea MDM Narrative Medical decision making narrative: Plan: Bedside ultrasound, DuoNeb, diuretics, EKG, troponin, imaging, reassess Differential Diagnosis Differential diagnosis: Likely acute exacerbation of chronic obstructive airways disease, congestive heart failure, community acquired pneumonia and other ( metabolic abnormality, respiratory acidosis, pneumothorax, other) Lab Data 07/03/24 17:06 07/03/24 17:04 Labs: Lab Results 07/03/24 07/03/24 07/03/24 Range/Units 17:04 17:05 17:06 WBC 8.8 (4.5-10.0) K/mm3 RBC 3.75 L (4.6-6.20) M/mm3 Hgb 11.6 L (14.0-18.0) g/dL Hct 38.5 L (42.0-52.0) % MCV 102.7 H (80-100) fl MCH 30.9 (26-34) pg MCHC 30.1 L (32-36) g/dl RDW 15.2 H (11.5-14.5) % Plt Count 173 (150-375) k/mm3 MPV 10.5 H (7.4-10.4) fl Immature Gran % (Auto) 0.6 H (0-0.5) % Neut % (Auto) 82.0 H (45.5-73.1) % Lymph % (Auto) 11.0 L (18.3-44.2) % [place] % (Auto) 5.9 (2.6-8.5) % Eos % (Auto) 0.2 (0-4.4) % Baso % (Auto) 0.3 (0.2-1.2) % Lymph # (Auto) 0.97 (0.9-3.2) K/mm3 [place] # (Auto) 0.5 (0.1-0.6) K/mm3 Eos # (Auto) 0.0 (0-0.3) K/mm3 Baso # (Auto) 0.0 (0.0-0.1) K/mm3 Abs Immat Gran (auto) 0.05 H (0.00-0.031) K/mm3 Absolute Neuts (auto) 7.2 H (1.3-6.7) K/mm3 Absolute Nucleated RBC 0.000 (0.0-0.012) K/mm3 Nucleated RBC % 0.0 (0.0-0.2) % PT 13.8 (11.1-14.7) Seconds INR 1.0 APTT 26.5 (22.3-36.8) Seconds Methemoglobin (0-1.5) %THb Expiratory Pressure cmH2O Inspiratory Pressure cmH2O Sodium 137 Cancelled (137-145) mmol/L Potassium 4.4 Cancelled (3.4-5.0) mmol/L Chloride 102 Cancelled (98-107) mmol/L Carbon Dioxide 28 Cancelled (22-30) mmol/L Anion Gap 7 Cancelled (4-12) mmol/L BUN 27 H Cancelled (9-20) mg/dL Creatinine 1.37 H Cancelled (0.7-1.3) mg/dL Estim Creat Clear Calc 55 Cancelled ml/min Estimated GFR 52 L Cancelled (59 - ) Glucose 132 H Cancelled (65-110) mg/dL Lactic Acid 0.8 (0.7-2.0) mmol/L Calcium 8.7 Cancelled (8.4-10.2) mg/dL Magnesium 2.3 (1.6-2.3) mg/dL Total Bilirubin 0.6 Cancelled (0.2-1.3) mg/dL AST 26 Cancelled (17-59) U/L ALT 19 Cancelled (6-50) U/L Alkaline Phosphatase 99 Cancelled (38-126) U/L Troponin I 0.092 H* (0.000-0.034) ng/mL C-Reactive Protein < 0.5 (<1.0) mg/dL NT-Pro-B Natriuret Pep 4130 H (19.9-100) pg/mL Total Protein 7.0 Cancelled (6.3-8.2) g/dL Albumin 4.1 Cancelled (3.5-5.1) g/dL Urine Color (Yellow) Urine Appearance (Clear) Urine pH (5.0-9.0) Ur Specific [place] (1.001-1.035) Urine Protein (Negative) mg/dL Urine Glucose (UA) (Negative) mg/dL Urine Ketones (Negative) mg/dL Ur Blood (Man) (Negative) Urine Nitrate (Negative) Urine Bilirubin (Negative) Urine Urobilinogen (<2.0) mg/dL Leukocyte Esterase Rfl (Negative) YENNI/UL Urine RBC (0-2) /hpf Urine WBC (0-3) /hpf Ur Squamous Epith Cells (Few) /hpf Urine Bacteria /hpf Urine Casts 07/03/24 07/03/24 07/03/24 Range/Units 17:10 18:00 18:40 WBC (4.5-10.0) K/mm3 RBC (4.6-6.20) M/mm3 Hgb (14.0-18.0) g/dL Hct (42.0-52.0) % MCV (80-100) fl MCH (26-34) pg MCHC (32-36) g/dl RDW (11.5-14.5) % Plt Count (150-375) k/mm3 MPV (7.4-10.4) fl Immature Gran % (Auto) (0-0.5) % Neut % (Auto) (45.5-73.1) % Lymph % (Auto) (18.3-44.2) % [place] % (Auto) (2.6-8.5) % Eos % (Auto) (0-4.4) % Baso % (Auto) (0.2-1.2) % Lymph # (Auto) (0.9-3.2) K/mm3 [place] # (Auto) (0.1-0.6) K/mm3 Eos # (Auto) (0-0.3) K/mm3 Baso # (Auto) (0.0-0.1) K/mm3 Abs Immat Gran (auto) (0.00-0.031) K/mm3 Absolute Neuts (auto) (1.3-6.7) K/mm3 Absolute Nucleated RBC (0.0-0.012) K/mm3 Nucleated RBC % (0.0-0.2) % PT (11.1-14.7) Seconds INR APTT (22.3-36.8) Seconds Methemoglobin 0.3 (0-1.5) %THb Expiratory Pressure 8 8 cmH2O Inspiratory Pressure 16 16 cmH2O Sodium (137-145) mmol/L Potassium (3.4-5.0) mmol/L Chloride (98-107) mmol/L Carbon Dioxide (22-30) mmol/L Anion Gap (4-12) mmol/L BUN (9-20) mg/dL Creatinine (0.7-1.3) mg/dL Estim Creat Clear Calc ml/min Estimated GFR (59 - ) Glucose (65-110) mg/dL Lactic Acid (0.7-2.0) mmol/L Calcium (8.4-10.2) mg/dL Magnesium (1.6-2.3) mg/dL Total Bilirubin (0.2-1.3) mg/dL AST (17-59) U/L ALT (6-50) U/L Alkaline Phosphatase (38-126) U/L Troponin I (0.000-0.034) ng/mL C-Reactive Protein (<1.0) mg/dL NT-Pro-B Natriuret Pep (19.9-100) pg/mL Total Protein (6.3-8.2) g/dL Albumin (3.5-5.1) g/dL Urine Color Yellow (Yellow) Urine Appearance Clear (Clear) Urine pH 6.0 (5.0-9.0) Ur Specific [place] 1.012 (1.001-1.035) Urine Protein 1+ H (Negative) mg/dL Urine Glucose (UA) Trace H (Negative) mg/dL Urine Ketones Negative (Negative) mg/dL Ur Blood (Man) Negative (Negative) Urine Nitrate Negative (Negative) Urine Bilirubin Negative (Negative) Urine Urobilinogen 0.2 (<2.0) mg/dL Leukocyte Esterase Rfl Negative (Negative) YENNI/UL Urine RBC 0-2 (0-2) /hpf Urine WBC 0-5 (0-3) /hpf Ur Squamous Epith Cells None seen (Few) /hpf Urine Bacteria None seen /hpf Urine Casts 0-2 ABG Data ABG results: 07/03/24 07/03/24 17:10 18:00 Puncture Site Right radial Right radial ABG pH 7.273 L* 7.285 L* ABG pCO2 60.6 H* 58.7 H ABG pO2 96.0 57.9 L ABG PO2/FiO2 Ratio 2.40 1.93 ABG HCO3 27.4 H 27.3 H ABG O2 Saturation 96.3 86.2 L* ABG O2 Content 15.4 L 14.3 L ABG Base Excess -0.4 -0.3 A-a Gradient 119.5 87.0 Oxyhemoglobin 93.7 86.7 L* Carboxyhemoglobin 3.6 H Reduced Hemoglobin 9.4 H Total Hemoglobin 11.6 L 11.7 L O2 Delivery Device Bipap Bipap O2 Liters/Min Not Reportable Not Reportable FiO2 40 30 ECG Data EKG #1: Attestation: I personally reviewed and interpreted this ECG as follows: ECG completion date: 07/03/24 ECG completion time: 16:59 Prior ECG tracings: not available for review Interpretation: Atrial flutter with rate 98, normal axis, no ST segment elevations or T-wave inversions concerning for ischemia, otherwise normal intervals with QTC of 388. Critical Care Time Critical Care Time Critical Care Time: Yes Total Critical Care Time: 35 Discharge Plan Discharge Clinical Impression: Acute respiratory failure with hypoxia and hypercapnia, Acute exacerbation of chronic obstructive pulmonary disease, Tachycardia CHF exacerbation Qualifiers: Heart failure type: unspecified Qualified Code(s): I50.9 - Heart failure, unspecified Patient Disposition: Home, Self-Care Condition: Serious Instructions: Antibiotic Form Patient Language: Peruvian Follow-up/Referrals: AmparoShala M.D. [Primary Care Provider] - Time of Disposition: 18:47
[2024-07-03] MEDS: AZITHROMYCIN 500 MG/NS 250 ML 500 MG/250 ML BAG 250 MG IVPB (18:40)
[2024-07-03 18:58] LABS: Add Urine Microscopic? YES; Appearance Urine Clear (Clear); Bacteria Urine None Seen /hpf; Bilirubin Urine Negative (Negative); Blood Urine Negative (Negative); Color Urine Yellow (Yellow); Glucose Urine UA Trace mg/dL (Negative); Ketones Urine Negative (Negative); Leukocyte Esterase Ur Negative LEU/UL (Negative); Nitrate Urine Negative (Negative); Non Pathogenic Casts 0-2; Protein Urine 1+ mg/dL (Negative); RBC Urine 0-2 /hpf (0-2); Specific Grav Ur 1.012 (1.001-1.035); Squamous Epithelial Cell Urine None Seen /hpf (Few); Urobilinogen Urine 0.2 mg/dL (<2.0); WBC Urine 0-5 /hpf (0-3)
[2024-07-03 20:17] LABS: Alveolar/Arterial O2 Gradient 91.7 mmHg; Base Excess ABG -0.6 mEq/l (+/-2.0); Fractional Inspired Oxygen 30 %; HCO3 ABG 26.5 mEq/l (22.0-26.0); Oxygen Content ABG 14.8 %vol (16.0-22.0); PCO2 ABG 54.8 mmHg (35.0-45.0); PO2 ABG 57.8 mmHg (80.0-100.0); PO2 FiO2 Ratio Arterial Blood 1.93 %; pH ABG 7.303 (7.350-7.450)
[2024-07-03 20:19] LABS: Modified Allen's Test Pass; Oxygen Saturation ABG 86.9 % (95.0-100.0); Oxyhemoglobin 87.7 % THb (90.0-100.0); Site Drawn RIGHT RADIAL
[2024-07-03 20:20] LABS: Device BIPAP; Expiratory Pressure 8 cmH2O; Inspiratory Pressure 16 cmH2O
[2024-07-03 20:46] LABS: Influenza A QL RT-PCR Negative (Negative); Influenza B QL RT-PCR Negative (Negative); RSV RNA, RT-PCR Negative (Negative); SARS-CoV-2 RNA PCR Negative (Negative)
--- NOTE | 2024-07-03 21:59 | P.HP_ITS ---
H&P: HPI History of Present Illness Date/Time: 07/03/24 21:59 Chief Complaint: Shortness of breath Narrative: 64-year-old male with past medical history of COPD resulting and chronic hypoxic hypercarbic respiratory failure on home O2 of 3 L, CHF, bipolar disorder who presented to the ER via EMS due to shortness of breath. The patient had evidently been feeling ill for about a week. EMS stated the patient was in and out of consciousness on her route hospital. He had initially reported some dull central chest pain to EMS for which he received 1 dose of sublingual nitro. The patient was somnolent at the time of my evaluation and fell asleep multiple times. He did not provide me with any review of systems except for that he has been short of breath. EMS report stated that the patient had reported been diagnosed with pneumonia 1 week ago. He had reportedly been taking his medications as prescribed. It appears that he had a script filled for Levaquin and prednisone on June 12. The patient was brought to the ER on CPAP. The patient had reported subjective improvement in shortness of breath on CPAP according to EMS report. Review of Systems 2 Review of Systems: Review of systems limited due to patient's clinical condition. The patient will wake up in state his name and that he was at [facility] but was not unable to tell the month or year. [facility] Past Medical History Medical History (Updated 07/04/24 @ 08:46 by Chhaya Pearson DO) Continuous tobacco abuse Chronic respiratory failure with hypoxia and hypercapnia On home O2 of 3 L Bipolar disorder CHF (congestive heart failure) COPD (chronic obstructive pulmonary disease) Surgical History Surgical History No significant past surgical history Family History Family History (Updated 07/04/24 @ 08:35 by Chhaya Pearson DO) Other Unknown family medical history Social History Social History (Updated 07/04/24 @ 08:37 by Chhaya Pearson DO) Social History: Code status: Full code (per EMR) Surrogate decision maker: Aura Campos (sister) Smoking packs per day: 1.5 Smoking cigarettes per day: 30.0 Years smoked: 40 Smoking pack-years: 60.00 Smoking status: Current every day smoker Tobacco type: cigarettes Alcohol intake: never Substance use type: marijuana Last use: 07/02/2024 Spiritual care concerns: No Meds Home Medications and Allergies Home Medications ?Medication ?Instructions ?Recorded ?Confirmed ?Type albuterol sulfate 90 mcg/actuation 2 puff inhalation Q4-6H PRN 07/03/24 07/03/24 History aerosol inhaler (Ventolin HFA) Shortness of breath apixaban 5 mg tablet (Eliquis) 5 mg PO BID 07/03/24 07/03/24 History aripiprazole 2 mg tablet 2 mg PO DAILY 07/03/24 07/03/24 History budesonide-formoterol HFA 160 2 puff inhalation Q12H 07/03/24 07/03/24 History mcg-4.5 mcg/actuation aerosol inhaler (Symbicort) diltiazem HCl 360 mg 360 mg PO DAILY 07/03/24 07/03/24 History capsule,extended release 24 hr furosemide 40 mg tablet 40 mg PO DAILY 07/03/24 07/03/24 History losartan 50 mg tablet 50 mg PO DAILY 07/03/24 07/03/24 History mometasone-formoterol HFA 200 2 puff inhalation BID 07/03/24 07/03/24 History mcg-5 mcg/actuation aerosol inhaler (Dulera) umeclidinium 62.5 mcg/actuation 1 inh inhalation ONCE 07/03/24 07/03/24 History blister powder for inhalation (Incruse Ellipta) Allergies Allergy/AdvReac Type Severity Reaction Status Date / Time piroxicam Allergy Unknown Unknown Verified 07/03/24 17:10 Vital Signs Vital Signs - 24 hr 07/03/24 16:54 07/03/24 17:15 07/03/24 17:15 Temperature 98.4 F Pulse Rate 110 H 98 98 Respiratory Rate 23 H 24 H 24 H Blood Pressure 129/94 H Pulse Oximetry 98 100 Oxygen Delivery BiPAP BiPAP 07/03/24 17:17 07/03/24 17:32 07/03/24 17:35 Temperature Pulse Rate 97 105 H 113 H Respiratory Rate 20 26 H 24 H Blood Pressure 141/80 H 129/60 Pulse Oximetry 98 Oxygen Delivery 07/03/24 17:35 07/03/24 17:43 07/03/24 17:45 Temperature Pulse Rate 113 H Respiratory Rate Blood Pressure Pulse Oximetry 100 95 95 Oxygen Delivery BiPAP BiPAP BiPAP 02/04/25 17:45 07/03/24 17:46 07/03/24 17:54 Temperature Pulse Rate 104 H 119 H 114 H Respiratory Rate 19 20 Blood Pressure 117/78 Pulse Oximetry 95 Oxygen Delivery 07/03/24 18:06 07/03/24 18:10 07/03/24 18:16 Temperature Pulse Rate 116 H 131 H 121 H Respiratory Rate 20 20 26 H Blood Pressure 118/83 145/94 H Pulse Oximetry 99 Oxygen Delivery 07/03/24 18:32 07/03/24 18:32 07/03/24 18:46 Temperature Pulse Rate 125 H 130 H 131 H Respiratory Rate 20 19 20 Blood Pressure 131/84 120/94 H Pulse Oximetry 91 Oxygen Delivery 07/03/24 19:16 07/03/24 19:30 07/03/24 20:50 Temperature Pulse Rate 114 H 120 H 129 H Respiratory Rate 23 H 26 H 28 H Blood Pressure 139/87 123/85 122/82 Pulse Oximetry 96 97 Oxygen Delivery 07/03/24 21:40 Temperature 98.9 F Pulse Rate 124 H Respiratory Rate 21 H Blood Pressure 105/61 Pulse Oximetry 96 Oxygen Delivery Exam 2 Narrative: Weight 99.1 kg BMI 28.1 Const: Other: Disheveled, smells strongly of smoke, appears older than stated age, well nourished HENMT: Other: Mucous membranes are dry but exam limited due to BiPAP, edentulous, head is normocephalic atraumatic Eyes: Other: Pupils are equal and reactive, positive conjunctival pallor, no scleral icterus Neck: Other: No JVD, trachea midline, no gross lymphadenopathy Resp: Other: Tachypnea, decreased breath sounds throughout, no accessory muscle use, barrel chested Cardio: Other: Sinus tachycardia, 2+ bilateral radial pedal pulses, no JVD GI: Other: Distended, soft, positive bowel sounds Back/Spine/Pelvis: Other: Normal alignment, no tenderness palpation Skin: Other: Normal temperature to touch, non jaundice Neuro: Other: Somnolent, alert oriented person and place, moves all extremities equally arouses to verbal stimuli but falls back asleep quickly neuro exam limited due to patient condition and lack of patient cooperation Extrem: Other: No cyanosis, 1+ edema to feet ankles up to mid joy Psych: Other: Irritable, uncooperative H&P: Results Labs Labs: Laboratory Tests 07/03/24 17:06 07/03/24 17:06 07/03/24 07/03/24 07/03/24 17:04 17:05 17:06 WBC 8.8 RBC 3.75 L Hgb 11.6 L Hct 38.5 L MCV 102.7 H MCH 30.9 MCHC 30.1 L RDW 15.2 H Plt Count 173 MPV 10.5 H Immature Gran % (Auto) 0.6 H Neut % (Auto) 82.0 H Lymph % (Auto) 11.0 L [place] % (Auto) 5.9 Eos % (Auto) 0.2 Baso % (Auto) 0.3 Lymph # (Auto) 0.97 [place] # (Auto) 0.5 Eos # (Auto) 0.0 Baso # (Auto) 0.0 Abs Immat Gran (auto) 0.05 H Absolute Neuts (auto) 7.2 H Absolute Nucleated RBC 0.000 Nucleated RBC % 0.0 PT 13.8 INR 1.0 APTT 26.5 Puncture Site ABG pH ABG pCO2 ABG pO2 ABG PO2/FiO2 Ratio ABG HCO3 ABG O2 Saturation ABG O2 Content ABG Base Excess A-a Gradient Oxyhemoglobin Carboxyhemoglobin Methemoglobin Reduced Hemoglobin Total Hemoglobin O2 Delivery Device O2 Liters/Min FiO2 Expiratory Pressure Inspiratory Pressure Sodium 137 Cancelled Potassium 4.4 Cancelled Chloride 102 Cancelled Carbon Dioxide 28 Cancelled Anion Gap 7 Cancelled BUN 27 H Cancelled Creatinine 1.37 H Cancelled Estim Creat Clear Calc 55 Cancelled Estimated GFR 52 L Cancelled Glucose 132 H Cancelled Lactic Acid 0.8 Calcium 8.7 Cancelled Magnesium 2.3 Total Bilirubin 0.6 Cancelled AST 26 Cancelled ALT 19 Cancelled Alkaline Phosphatase 99 Cancelled Troponin I 0.092 H* C-Reactive Protein < 0.5 NT-Pro-B Natriuret Pep 4130 H Total Protein 7.0 Cancelled Albumin 4.1 Cancelled Urine Color Urine Appearance Urine pH Ur Specific [place] Urine Protein Urine Glucose (UA) Urine Ketones Ur Blood (Man) Urine Nitrate Urine Bilirubin Urine Urobilinogen Leukocyte Esterase Rfl Urine RBC Urine WBC Ur Squamous Epith Cells Urine Bacteria Urine Casts Influenza A (RT-PCR) Influenza B (RT-PCR) RSV (RT-PCR) SARS-CoV-2 RNA (RT-PCR) 02/04/25 02/04/25 02/04/25 17:10 18:00 18:40 WBC RBC Hgb Hct MCV MCH MCHC RDW Plt Count MPV Immature Gran % (Auto) Neut % (Auto) Lymph % (Auto) [place] % (Auto) Eos % (Auto) Baso % (Auto) Lymph # (Auto) [place] # (Auto) Eos # (Auto) Baso # (Auto) Abs Immat Gran (auto) Absolute Neuts (auto) Absolute Nucleated RBC Nucleated RBC % PT INR APTT Puncture Site Right radial Right radial ABG pH 7.273 L* 7.285 L* ABG pCO2 60.6 H* 58.7 H ABG pO2 96.0 57.9 L ABG PO2/FiO2 Ratio 2.40 1.93 ABG HCO3 27.4 H 27.3 H ABG O2 Saturation 96.3 86.2 L* ABG O2 Content 15.4 L 14.3 L ABG Base Excess -0.4 -0.3 A-a Gradient 119.5 87.0 Oxyhemoglobin 93.7 86.7 L* Carboxyhemoglobin 3.6 H Methemoglobin 0.3 Reduced Hemoglobin 9.4 H Total Hemoglobin 11.6 L 11.7 L O2 Delivery Device Bipap Bipap O2 Liters/Min Not Reportable Not Reportable FiO2 40 30 Expiratory Pressure 8 8 Inspiratory Pressure 16 16 Sodium Potassium Chloride Carbon Dioxide Anion Gap BUN Creatinine Estim Creat Clear Calc Estimated GFR Glucose Lactic Acid Calcium Magnesium Total Bilirubin AST ALT Alkaline Phosphatase Troponin I C-Reactive Protein NT-Pro-B Natriuret Pep Total Protein Albumin Urine Color Yellow Urine Appearance Clear Urine pH 6.0 Ur Specific [place] 1.012 Urine Protein 1+ H Urine Glucose (UA) Trace H Urine Ketones Negative Ur Blood (Man) Negative Urine Nitrate Negative Urine Bilirubin Negative Urine Urobilinogen 0.2 Leukocyte Esterase Rfl Negative Urine RBC 0-2 Urine WBC 0-5 Ur Squamous Epith Cells None seen Urine Bacteria None seen Urine Casts 0-2 Influenza A (RT-PCR) Influenza B (RT-PCR) RSV (RT-PCR) SARS-CoV-2 RNA (RT-PCR) 07/03/24 07/03/24 20:06 20:13 WBC RBC Hgb Hct MCV MCH MCHC RDW Plt Count MPV Immature Gran % (Auto) Neut % (Auto) Lymph % (Auto) [place] % (Auto) Eos % (Auto) Baso % (Auto) Lymph # (Auto) [place] # (Auto) Eos # (Auto) Baso # (Auto) Abs Immat Gran (auto) Absolute Neuts (auto) Absolute Nucleated RBC Nucleated RBC % PT INR APTT Puncture Site Right radial ABG pH 7.303 L ABG pCO2 54.8 H ABG pO2 57.8 L ABG PO2/FiO2 Ratio 1.93 ABG HCO3 26.5 H ABG O2 Saturation 86.9 L* ABG O2 Content 14.8 L ABG Base Excess -0.6 A-a Gradient 91.7 Oxyhemoglobin 87.7 L* Carboxyhemoglobin Methemoglobin Reduced Hemoglobin Total Hemoglobin 12.0 O2 Delivery Device Bipap O2 Liters/Min Not Reportable FiO2 30 Expiratory Pressure 8 Inspiratory Pressure 16 Sodium Potassium Chloride Carbon Dioxide Anion Gap BUN Creatinine Estim Creat Clear Calc Estimated GFR Glucose Lactic Acid Calcium Magnesium Total Bilirubin AST ALT Alkaline Phosphatase Troponin I C-Reactive Protein NT-Pro-B Natriuret Pep Total Protein Albumin Urine Color Urine Appearance Urine pH Ur Specific [place] Urine Protein Urine Glucose (UA) Urine Ketones Ur Blood (Man) Urine Nitrate Urine Bilirubin Urine Urobilinogen Leukocyte Esterase Rfl Urine RBC Urine WBC Ur Squamous Epith Cells Urine Bacteria Urine Casts Influenza A (RT-PCR) Negative Influenza B (RT-PCR) Negative RSV (RT-PCR) Negative SARS-CoV-2 RNA (RT-PCR) Negative Impressions Chest X-Ray 07/03/24 17:59 IMPRESSION: Peribronchial thickening with panlobular emphysematous disease. No focal infiltrate or effusion. Asymmetric density within the right mid to lower lung field for which cross- sectional imaging (noncontrast enhanced CT examination of the chest) is suggested when patient is clinically able. EKG: All imaging and EKGs personally reviewed and interpreted. And unless stated otherwise agree with radiologic and cardiology interpretation. Assessment and Plan Assessment and plan (1) Acute exacerbation of chronic obstructive pulmonary disease: Code(s): J44.1 - Chronic obstructive pulmonary disease with (acute) exacerbation Status: Acute (2) Acute respiratory failure with hypoxia and hypercapnia: Code(s): J96.01 - Acute respiratory failure with hypoxia; J96.02 - Acute respiratory failure with hypercapnia Status: Acute (3) Tachycardia: Code(s): R00.0 - Tachycardia, unspecified Status: Acute (4) Current smoker: Code(s): F17.200 - Nicotine dependence, unspecified, uncomplicated Status: Acute (5) Elevated troponin: Code(s): R79.89 - Other specified abnormal findings of blood chemistry Status: Acute (6) Megaloblastic anemia: Code(s): D53.1 - Other megaloblastic anemias, not elsewhere classified Status: Acute (7) CHF (congestive heart failure): Code(s): I50.9 - Heart failure, unspecified Status: Acute (8) Polysubstance use disorder: Code(s): F19.90 - Other psychoactive substance use, unspecified, uncomplicated Status: Acute (9) Acute respiratory acidosis: Code(s): J96.02 - Acute respiratory failure with hypercapnia Status: Acute Plan Acute respiratory acidosis due to acute hypercapnic respiratory failure complicating chronic hypoxic respiratory failure due to COPD exacerbation. The patient respiratory status was not improving on BiPAP setting provided in the ER. I a subsequently provided changes to settings with pressures of 18/8 and increased the patient's rate to 24. Repeat ABG demonstrated significant improvement in pH and pCO2. With these changes patient's tidal volumes had improved to 450-500 range. Imaging suggest possible underlying density left lower lung field and peribronchial thickening with panel over emphysematous changes. He would benefit from CT scan but patient was initially unstable and would not tolerate positioning for CT. At this time patient now on cooperative. Will hold off on ordering further imaging acutely and will manage with scheduled IV Solu-Medrol and scheduled nebulizer treatments. Smoking cessation education will be provided when the patient is more alert. Will allow patient break from BiPAP. Will change patient's diet to heart healthy. Will resume home inhalers, Eliquis and Cardizem. The patient is significantly tachycardic. The patient did receive Lasix in the ER but at the time my evaluation appears mildly hypovolemic. Will give patient a IV fluid bolus 1 L over 2 hours and then provide 1 L of fluid at 100 mL an hour and re evaluate patient's fluid status. Will order echocardiogram to further evaluate cardiac structure and function as he does have some peripheral edema and reported history of CHF but we have no records available for review. The patient did have an elevated troponin but his troponin profile is completely flat he likely has chronic troponin leak could no evidence of acute ischemic event. The patient may also in part be tachycardic due to his urine drug screen being positive for cocaine. Given imaging findings and concern for underlying infection patient was started empiric antibiotic therapy with Rocephin and azithromycin. However patient's MRSA PCR came back positive. Will change antibiotic coverage to Rocephin and doxycycline. Blood cultures have been obtained and are pending. Will repeat CBC and electrolyte panel in a.m.. The patient's care was discussed and transitioned to the intensive SIRS at the end of my shift. 80 minute spent in critical care activities. Due to a high probability of clinically significant, life threatening deterioration, the patient required my highest level of preparedness to intervene emergently and I personally spent this critical care time directly and personally managing the patient. This critical care time included obtaining a history; examining the patient; pulse oximetry; ordering and review of studies; arranging urgent treatment with development of a management plan; evaluation of patient's response to treatment; frequent reassessment; and discussions with other providers. It was exclusive of separately billable procedures and treating other patients and teaching time. Please see Assessment and Plan section and the rest of the note for further information on patient assessment and treatment. Quality VTE Prophylaxis VTE prophylaxis: pharmacologic ordered (Resume home Eliquis) Hospitalist [facility] Advance Care Plan I have confirmed that the patient's Advanced Care Plan is present, code status is documented, or surrogate decision maker is listed in patient medical record.: Yes Medication Reconciliation I have utilized all available resources to obtain, update and review the patients current medications (includes all prescriptions, OTC, herbals, cannabis, and nutritional supplements).: Yes
--- NOTE | 2024-07-03 22:02 | ADMGEN ---
This patient, Jose De La Vega, was admitted to Intensive Care Unit-2. Patient/family oriented to hospital policies and general routines including ID bracelet, bed and alarms, visiting hours, pain management, procedures, bathroom and other care routines, personal items, smoking policy, room service/diet, and visiting hours. Information on how to activate the Rapid Response Team has been discussed. Patient/Family are encouraged to report perceived risks to care and to ask questions if they do not understand what they are told or what they should do.
[2024-07-03 22:17] LABS: Glucose Point of Care 156 mg/dl (65-105)
[2024-07-03 22:40] LABS: Amphetamine Screen Urine Negative (Negative); Barbiturate Screen Urine Negative (Negative); Benzodiazepines Screen Urine Negative (Negative); Cannabinoid Screen Urine Positive (Negative); Cocaine Screen Urine Positive (Negative); Methadone Screen Urine Negative (Negative); Opiate Screen Urine Negative (Negative); Phencyclidine Screen Urine Negative (Negative)
[2024-07-03] MEDS: methylPREDNISolone SOD SUCC 125 MG VIAL 80 MG IV PUSH (23:42)
[2024-07-03 23:45] LABS: MRSA (PCR) DETECTED (NOT DETECTE)
[2024-07-03 23:45] LABS: Troponin I 0.096 ng/mL (0.000-0.034)
[2024-07-04] VITALS (24 sets, daily range): BP systolic 110–153; BP diastolic 81–101; PULSE 92–135; RESP 18–26; TEMP 36.3–37.1; O2SAT 90–99; BMI 27.3
--- NOTE | 2024-07-04 | ECHO_ITS ---
Patient Info Name: Jose De La Vega Age: 64 years : 1960 Gender: Male Ht: 74 in Wt: 212 lbs BSA: 2.25 m2 HR: 132 bpm BP: 142 / 101 mmHg Technical Quality: Good Exam Date: 07/04/2024 3:15 PM Exam Location: Echo Lab Exam Room: [facility] Patient Status: Inpatient Admit Date: 07/04/2024 Staff Ordering Physician: Tam Zamarripa MD Epic Prelude Analyst: Shelby Green RDCS Attending Provider: Chhaya Pearson DO Referring Physician: Marilou MESSER; Exam Type: CA echo doppler color flow Study Info Indications - CHF Complete two-dimensional, color flow and Doppler transthoracic echocardiogram is performed. Summary 1. Complete two-dimensional, color flow and Doppler transthoracic echocardiogram is performed. 2. Study is limited due to tachycardia. 3. The left ventricle is normal in size and systolic function. The left ventricular ejection fraction is visually estimated to be 50-55%. 4. The right ventricle is normal in size and systolic function. 5. There is a small amount of pericardial effusion. Left Ventricle The left ventricle is normal in size and systolic function. The left ventricular ejection fraction is visually estimated to be 50-55%. Right Ventricle The right ventricle is normal in size and systolic function. Left Atria The left atrium is dilated. Right Atria The right atrium is dilated. Atrial Septum The atrial septum is visually intact. Pulmonic Valve The pulmonic valve is normal. There is no color Doppler evidence of pulmonic valve regurgitation. Mitral Valve The mitral valve is normal. There is mild mitral regurgitation in this study. Tricuspid Valve The tricuspid valve is normal. There is trace tricuspid regurgitation. Pericardium/Pleural There is a small amount of pericardial effusion. Inferior Vena Cava Inferior vena cava is not well visualized. Aorta The aortic root at the level of the sinus of Valsalva measures 3.5 cm in diameter. Left Ventricular Outflow Tract Name Value Normal LVOT 2D LVOT Diameter 2.1 cm LVOT Doppler LVOT Peak Gradient 9 mmHg LVOT Mean Gradient 5 mmHg LVOT VTI 23 cm LVOT VTI/AV VTI Ratio 0.8 LVOT Stroke Volume 84 ml LVOT CO 10.1 l/min LVOT CI 4.5 l/min/m2 Mitral Valve Name Value Normal MV Doppler MV Peak Gradient 8 mmHg MV Mean Gradient 4 mmHg MV Decel Zapata 1,514 cm/s2 MV PHT 34 ms MV Area (PHT) 6.5 cm2 4.0-5.0 MV Area (Cont Eq VTI) 2.5 cm2 MV Diastolic Function MV E Peak Velocity 177 cm/s MV A Peak Velocity 91 cm/s MV E/A 1.9 MV Decel Time 117 ms MV Annular TDI MV E/e' (Septal) 19.1 <=8.0 MV E/e' (Lateral) 15.6 <=8.0 MV E/e' (Average) 17.4 Tricuspid Valve Name Value Normal TV Regurgitation Doppler TR Peak Velocity 368 cm/s TR Peak Gradient 54 mmHg Aortic Valve Name Value Normal AV Doppler AV Peak Velocity 161 cm/s AV Peak Gradient 10 mmHg AV Mean Gradient 6 mmHg AV VTI 27 cm AV Area (Cont Eq VTI) 3.1 cm2 >=3.0 AV Area (Cont Eq Randy) 3.1 cm2 AV Regurgitation 2D LVOT Area 3.6 cm2 Ventricles Name Value Normal LV Dimensions 2D/MM IVS Diastolic Thickness (2D) 0.9 cm 0.6-1.0 LVID Diastole (2D) 5.1 cm 4.2-5.8 LVIW Diastolic Thickness (2D) 1.0 cm 0.6-1.0 LVID Systole (2D) 4.3 cm 2.5-4.0 LVOT Diameter 2.1 cm LV Mass (2D Cubed) 167.70 g 88.00-224.00 LV Mass Index (2D Cubed) 74 g/m2 49-115 Relative Wall Thickness (2D) 0.38 LV Fractional Shortening/Ejection Fraction 2D/MM LV Fractional Shortening (2D) 17 % 25-43 LV EF (2D Teicholz) 35 % 52-72 LV Diastolic Volume (4C MOD) 185 ml LV EF (4C MOD) 55 % LV Diastolic Length (4C) 10.0 cm LV Systolic Length (4C) 8.9 cm LV Stroke Volume (4C MOD) 101 ml Atria Name Value Normal LA Dimensions LA Volume (4C A-L) 91 ml RA Dimensions RA Area (4C) 28.4 cm2 <=18.0 Report Signatures
[2024-07-04 01:18] LABS: Alveolar/Arterial O2 Gradient 84.4 mmHg; Base Excess ABG -2.2 mEq/l (+/-2.0); Fractional Inspired Oxygen 30 %; HCO3 ABG 23.6 mEq/l (22.0-26.0); Oxygen Content ABG 15.4 %vol (16.0-22.0); Oxygen Saturation ABG 94.6 % (95.0-100.0); Oxyhemoglobin 93.3 % THb (90.0-100.0); PCO2 ABG 44.8 mmHg (35.0-45.0); PO2 ABG 76.9 mmHg (80.0-100.0); PO2 FiO2 Ratio Arterial Blood 2.56 %; Total Hemoglobin 11.7 g/dL (12.0-18.0)
[2024-07-04 01:20] LABS: Device NON-INVASIVE VENT; Modified Allen's Test Pass; Site Drawn RIGHT RADIAL
[2024-07-04 01:21] LABS: Non-Invasive Expiratory Pressure 8 CMH2O; Non-Invasive Inspiratory Pressure 18 CMH2O; Non-Invasive Vent Rate 24 /MIN
[2024-07-04] MEDS: DOXYCYCLINE 100 MG/NS 100 ML 100 MG/100 ML BAG IVPB ×2 (01:38→13:36)
[2024-07-04] MEDS: SODIUM CHLORIDE 0.9% IV 1,000 ML 100 ML IV CONT (01:38)
[2024-07-04] MEDS: SODIUM CHLORIDE 0.9% IV 1,000 ML 500 ML IV CONT (02:01)
[2024-07-04] MEDS: dilTIAZem HCl INJ 25 MG/5 ML VIAL 10 MG IV PUSH (03:47)
[2024-07-04 04:46] LABS: Hematocrit 35.6 % (42.0-52.0); Immature Granulocyte Absolute 0.01 K/mm3 (0.00-0.031); Immature Granulocyte Percent A 0.4 % (0-0.5); Lymphocytes Absolute Auto 0.21 K/mm3 (0.9-3.2); Lymphocytes Percent Auto 7.6 % (18.3-44.2); Mean Corpuscular HGB Conc 30.9 g/dl (32-36); Mean Corpuscular Hemoglobin 31.1 pg (26-34); Mean Corpuscular Volume 100.6 fl (80-100); Mean Platelet Volume 10.6 fl (7.4-10.4); Monocytes Percent Auto 1.1 % (2.6-8.5); Neutrophils Absolute Auto 2.5 K/mm3 (1.3-6.7); Neutrophils Percent Auto 90.9 % (45.5-73.1); Platelet Count Result 143 k/mm3 (150-375); Red Blood Count 3.54 M/mm3 (4.6-6.20); Red Cell Distribution Width 14.8 % (11.5-14.5); White Blood Count 2.8 K/mm3 (4.5-10.0)
[2024-07-04 05:01] LABS: Anion Gap 11 mmol/L (4-12); Blood Urea Nitrogen 27 mg/dL (9-20); Calcium 8.9 mg/dL (8.4-10.2); Carbon Dioxide 27 mmol/L (22-30); Chloride 102 mmol/L (98-107); Estimated CRCL calculation 61 ml/min; Estimated Glomerular Filt Rate 59; Glucose 163 mg/dL (65-110); Potassium 5.4 mmol/L (3.4-5.0); Sodium 140 mmol/L (137-145)
[2024-07-04] MEDS: methylPREDNISolone SOD SUCC 125 MG VIAL 80 MG IV PUSH (06:00)
[2024-07-04] MEDS: CEFEPIME 2 GM/NS 50 ML 2 GM/50 ML BAG IVPB ×2 (06:00→17:23)
[2024-07-04] MEDS: DEXTROSE 50% 25 GM/50 ML SYRINGE IV PUSH (07:32)
[2024-07-04] MEDS: CALCIUM GLUC 1,000 MG/NS 50 ML 1,000 MG/50 ML BAG 100 MG IVPB (07:32)
[2024-07-04] MEDS: INSULIN HUMAN REGULAR (*BKC) 100 UNITS/ML 10 UNITS IV PUSH (07:32)
[2024-07-04] MEDS: IPRATROPIUM BR 0.02% INH SOLN 0.5 MG/2.5 ML VIAL INHALATION ×3 (08:23→21:12)
[2024-07-04] MEDS: LEVALBUTEROL NEB 1.25 MG/3 ML INHALATION ×3 (08:23→21:12)
[2024-07-04] MEDS: FLUTICASONE/SALMETEROL 230-21 MCG INHALER 1 PUFF 2 PUFF INHALATION (08:24)
[2024-07-04] MEDS: SODIUM ZIRCONIUM CYCLOSILICATE 10 GM POWD.PACK PO (09:16)
[2024-07-04] MEDS: dilTIAZem HCL CD 180 MG CAP.24HR 360 MG PO (09:16)
[2024-07-04] MEDS: APIXABAN 5 MG TABLET PO ×2 (09:16→20:36)
[2024-07-04 09:21] LABS: Anion Gap 11 mmol/L (4-12); Blood Urea Nitrogen 28 mg/dL (9-20); Calcium 9.3 mg/dL (8.4-10.2); Carbon Dioxide 25 mmol/L (22-30); Chloride 103 mmol/L (98-107); Estimated CRCL calculation 67 ml/min; Estimated Glomerular Filt Rate > 60; Glucose 164 mg/dL (65-110); Potassium 4.4 mmol/L (3.4-5.0); Sodium 139 mmol/L (137-145)
[2024-07-04] MEDS: LOSARTAN POTASSIUM 50 MG TABLET PO (09:30)
[2024-07-04] MEDS: ARIPiprazole 2 MG TABLET PO (09:30)
[2024-07-04] MEDS: ALPRAZolam (*CRX) 0.5 MG TABLET PO (10:02)
--- NOTE | 2024-07-04 11:13 | P.CONIN_ITS ---
Assessment and Plan Assessment and plan (1) Acute respiratory failure with hypoxia and hypercapnia: Code(s): J96.01 - Acute respiratory failure with hypoxia; J96.02 - Acute respiratory failure with hypercapnia Status: Acute Assessment and Plan: Patient presented with shortness of breath, status post treatment Levaquin and prednisone for pneumonia -patient was found to be hypercapnic in the ER, was placed on BiPAP, repeat ABGs this morning showed improvement in his hypercapnia hydration and pH. -currently on 3 L nasal cannula patient which is what he uses at home -BiPAP p.r.n. and at night -will have pulmonology evaluate the patient (2) Acute exacerbation of chronic obstructive pulmonary disease: Code(s): J44.1 - Chronic obstructive pulmonary disease with (acute) exacerbation Status: Acute Assessment and Plan: Continue p.r.n. BiPAP and BiPAP at night -on azithromycin, with cefepime cefepime and vancomycin -will deescalate him blood cultures are negative -continue methylprednisolone, -continue Xopenex and Atrovent (3) Current smoker: Code(s): F17.200 - Nicotine dependence, unspecified, uncomplicated Status: Acute Assessment and Plan: Counseled patient on cessation of smoking (4) Polysubstance use disorder: Code(s): F19.90 - Other psychoactive substance use, unspecified, uncomplicated Status: Acute Assessment and Plan: Urine drug screen was positive for cocaine and cannabis Counseled patient cessation of cannabis and cocaine use (5) Tachycardia: Code(s): R00.0 - Tachycardia, unspecified Status: Acute Assessment and Plan: Could be related to cocaine, anxiety, hypercapnic/hypoxic respiratory failure (6) CHF (congestive heart failure): Code(s): I50.9 - Heart failure, unspecified Status: Acute Assessment and Plan: Euvolemic at this time, continue to monitor Chest x-ray IMPRESSION: Peribronchial thickening with panlobular emphysematous disease. No focal infiltrate or effusion. Asymmetric density within the right mid to lower lung field for which cross- sectional imaging (noncontrast enhanced CT examination of the chest) is suggested when patient is clinically able. Plan DVT prophylaxis: Lovenox Stress ulcer prophylaxis: Not indicated Nutrition: Heart healthy diet Code Status: Full code Critical Care Time Spent: 49 minutes Discussed with patient updated with his condition and plan of care. I answered all his questions Due to a high probability of clinically significant, life threatening deterioration, the patient required my highest level of preparedness to intervene emergently and I personally spent this critical care time directly and personally managing the patient. This critical care time included obtaining a history; examining the patient; pulse oximetry; ordering and review of studies; arranging urgent treatment with development of a management plan; evaluation of patient's response to treatment; frequent reassessment; and discussions with other providers. It was exclusive of separately billable procedures and treating other patients and teaching time. Please see Assessment and Plan section and the rest of the note for further information on patient assessment and treatment This dictation may have been done utilizing a voice recognition system. Attempts have been made to correct errors. However, there may be uncorrected grammatical, spelling, and recognitions errors present. Master Printer Consult Note Consult date: 07/04/24 Reason for consult: Hypercapnic respiratory failure, altered level of consciousness HPI: Jose De La Vega is a 64 year old male with significant past medical history of chronic hypoxic and hypercapnic respiratory failure on 3 L home oxygen, bipolar, CHF, COPD, tobacco abuse presented the ED on 07/03/2024 with complains of shortness of breath and not feeling well for the last 6-7 days. Patient stated that he has also has a cough which is productive of green sputum. S he also complained of some chest pain to the EMS for which he received a sublingual nitroglycerin. Patient was found to be in hypercapnic respiratory failure, was placed on BiPAP with improvement in his hypercapnia and mental status. Patient was diagnosed with pneumonia 1 week ago and has been reportedly taking his medications as prescribed. He did have a prescription for Levaquin and prednisone. Urine drug screen was positive for cannabis and cocaine. Patient was placed on BiPAP in the ER, transfer the ICU for further manage Patient seen and examined this morning in the ICU, is currently on 3 L nasal cannula with adequate O2 sats, states he feels much better and denies any shortness of breath, states his breathing is at baseline but he feels a little anxious. Patient is tachycardic despite receiving IV fluids. Patient also complains of chronic back pain and requests some pain medications. He is also requesting for some halls/lozenges. Hemodynamically stable. Denies any chest pain, abdominal pain, nausea, vomiting at this time. Urine output has been adequate, patient is afebrile Review of Systems 2 Review of Systems: All systems reviewed & are unremarkable except as noted in HPI and below PMFSH Past Medical History Medical History (Updated 07/04/24 @ 08:46 by Chhaya Pearson DO) Continuous tobacco abuse Chronic respiratory failure with hypoxia and hypercapnia On home O2 of 3 L Bipolar disorder CHF (congestive heart failure) COPD (chronic obstructive pulmonary disease) Surgical History Surgical History No significant past surgical history Family History Family History (Updated 07/04/24 @ 08:35 by Chhaya Pearson DO) Other Unknown family medical history Social History Social History (Updated 07/04/24 @ 08:37 by Chhaya Pearson DO) Social History: Code status: Full code (per EMR) Surrogate decision maker: Aura Campos (sister) Smoking packs per day: 1.5 Smoking cigarettes per day: 30.0 Years smoked: 40 Smoking pack-years: 60.00 Smoking status: Current every day smoker Tobacco type: cigarettes Alcohol intake: never Substance use type: marijuana Last use: 07/02/2024 Spiritual care concerns: No Meds Home Medications and Allergies Home Medications ?Medication ?Instructions ?Recorded ?Confirmed ?Type albuterol sulfate 90 mcg/actuation 2 puff inhalation Q4-6H PRN 07/03/24 07/03/24 History aerosol inhaler (Ventolin HFA) Shortness of breath apixaban 5 mg tablet (Eliquis) 5 mg PO BID 07/03/24 07/03/24 History aripiprazole 2 mg tablet 2 mg PO DAILY 07/03/24 07/03/24 History budesonide-formoterol HFA 160 2 puff inhalation Q12H 07/03/24 07/03/24 History mcg-4.5 mcg/actuation aerosol inhaler (Symbicort) diltiazem HCl 360 mg 360 mg PO DAILY 07/03/24 07/03/24 History capsule,extended release 24 hr furosemide 40 mg tablet 40 mg PO DAILY 07/03/24 07/03/24 History losartan 50 mg tablet 50 mg PO DAILY 07/03/24 07/03/24 History mometasone-formoterol HFA 200 2 puff inhalation BID 07/03/24 07/03/24 History mcg-5 mcg/actuation aerosol inhaler (Dulera) umeclidinium 62.5 mcg/actuation 1 inh inhalation ONCE 07/03/24 07/03/24 History blister powder for inhalation (Incruse Ellipta) Allergies Allergy/AdvReac Type Severity Reaction Status Date / Time piroxicam Allergy Unknown Unknown Verified 07/03/24 17:10 Vital Signs Vital Signs - 24 hr 07/03/24 16:54 07/03/24 17:15 07/03/24 17:15 Temperature 98.4 F Pulse Rate 110 H 98 98 Respiratory Rate 23 H 24 H 24 H Blood Pressure 129/94 H Pulse Oximetry 98 100 Oxygen Delivery BiPAP BiPAP Oxygen Flow Rate Fraction of Inspired Oxygen 07/03/24 17:17 07/03/24 17:32 07/03/24 17:35 Temperature Pulse Rate 97 105 H 113 H Respiratory Rate 20 26 H 24 H Blood Pressure 141/80 H 129/60 Pulse Oximetry 98 Oxygen Delivery Oxygen Flow Rate Fraction of Inspired Oxygen 07/03/24 17:35 07/03/24 17:43 07/03/24 17:45 Temperature Pulse Rate 113 H Respiratory Rate Blood Pressure Pulse Oximetry 100 95 95 Oxygen Delivery BiPAP BiPAP BiPAP Oxygen Flow Rate Fraction of Inspired Oxygen 07/03/24 17:45 07/03/24 17:46 07/03/24 17:54 Temperature Pulse Rate 104 H 119 H 114 H Respiratory Rate 19 20 Blood Pressure 117/78 Pulse Oximetry 95 Oxygen Delivery Oxygen Flow Rate Fraction of Inspired Oxygen 07/03/24 18:06 07/03/24 18:10 07/03/24 18:16 Temperature Pulse Rate 116 H 131 H 121 H Respiratory Rate 20 20 26 H Blood Pressure 118/83 145/94 H Pulse Oximetry 99 Oxygen Delivery Oxygen Flow Rate Fraction of Inspired Oxygen 07/03/24 18:32 07/03/24 18:32 07/03/24 18:46 Temperature Pulse Rate 125 H 130 H 131 H Respiratory Rate 20 19 20 Blood Pressure 131/84 120/94 H Pulse Oximetry 91 Oxygen Delivery Oxygen Flow Rate Fraction of Inspired Oxygen 07/03/24 19:16 07/03/24 19:30 07/03/24 20:50 Temperature Pulse Rate 114 H 120 H 129 H Respiratory Rate 23 H 26 H 28 H Blood Pressure 139/87 123/85 122/82 Pulse Oximetry 96 97 Oxygen Delivery Oxygen Flow Rate Fraction of Inspired Oxygen 07/03/24 21:40 07/03/24 22:00 07/03/24 22:00 Temperature 98.9 F Pulse Rate 124 H 122 H 126 H Respiratory Rate 21 H 28 H Blood Pressure 105/61 117/73 Pulse Oximetry 96 95 Oxygen Delivery Oxygen Flow Rate Fraction of Inspired Oxygen 07/03/24 22:40 07/04/24 00:00 07/04/24 00:00 Temperature 98.7 F Pulse Rate 126 H 132 H 121 H Respiratory Rate 28 H 26 H Blood Pressure 118/81 Pulse Oximetry 95 98 Oxygen Delivery BiPAP Oxygen Flow Rate Fraction of Inspired Oxygen 30 07/04/24 01:35 07/04/24 02:00 07/04/24 02:00 Temperature Pulse Rate 92 130 H 130 H Respiratory Rate 24 H 24 H Blood Pressure 110/86 Pulse Oximetry 97 99 Oxygen Delivery BiPAP Oxygen Flow Rate Fraction of Inspired Oxygen 07/04/24 03:51 07/04/24 04:00 07/04/24 04:00 Temperature 98.5 F Pulse Rate 125 H 125 H 125 H Respiratory Rate 23 H 19 Blood Pressure 134/95 H Pulse Oximetry 98 98 Oxygen Delivery BiPAP Oxygen Flow Rate Fraction of Inspired Oxygen 30 07/04/24 06:00 07/04/24 06:00 07/04/24 08:00 Temperature 97.6 F Pulse Rate 125 H 125 H 134 H Respiratory Rate 24 H 19 Blood Pressure 142/101 H 153/95 H Pulse Oximetry 92 98 Oxygen Delivery Oxygen Flow Rate Fraction of Inspired Oxygen 07/04/24 08:00 07/04/24 08:00 07/04/24 08:30 Temperature Pulse Rate 127 H 128 H 131 H Respiratory Rate 21 H 24 H Blood Pressure Pulse Oximetry 98 Oxygen Delivery BiPAP Oxygen Flow Rate Fraction of Inspired Oxygen 30 07/04/24 08:39 07/04/24 08:43 07/04/24 09:00 Temperature Pulse Rate 125 H Respiratory Rate 24 H Blood Pressure Pulse Oximetry 97 98 Oxygen Delivery Nasal Cannula Nasal Cannula Oxygen Flow Rate 3 3 Fraction of Inspired Oxygen 07/04/24 10:00 07/04/24 10:00 Temperature Pulse Rate 130 H 130 H Respiratory Rate 23 H Blood Pressure 144/94 H Pulse Oximetry 95 Oxygen Delivery Oxygen Flow Rate Fraction of Inspired Oxygen Exam 2 Narrative: General: Pleasant gentleman currently in no acute distress HEENT:? Pupils equal and reactive, sclerae is clear, moist oral mucosa, upper teeth are absent Neck:? Supple Respiratory:? Coarse breath sounds bilateral a lower lobes R > L, no wheezing, adequate air entry Cardiac:? S1-S2 is normal, tachycardia Abdomen:? Soft, nontender, nondistended, normoactive bowel sound Extremities:? No edema, palpable pedal pulse Neuro:? Patient is awake, alert, oriented, nonfocal, answers to questions appropriately and follows simple commands in all x-ray Skin:? No skin lesions noted Psych:? Anxious otherwise normal mentation Results Labs 07/04/24 04:33 07/04/24 08:56 Labs: Short CBC 07/03/24 07/04/24 Range/Units 17:06 04:33 WBC 8.8 2.8 L (4.5-10.0) K/mm3 Hgb 11.6 L 11.0 L (14.0-18.0) g/dL Hct 38.5 L 35.6 L (42.0-52.0) % Plt Count 173 143 L (150-375) k/mm3 BMP 07/03/24 07/03/24 07/04/24 17:04 17:06 04:33 Sodium 137 Cancelled 140 Potassium 4.4 Cancelled 5.4 H Chloride 102 Cancelled 102 Carbon Dioxide 28 Cancelled 27 BUN 27 H Cancelled 27 H Creatinine 1.37 H Cancelled 1.23 Glucose 132 H Cancelled 163 H Calcium 8.7 Cancelled 8.9 07/04/24 08:56 Sodium 139 Potassium 4.4 Chloride 103 Carbon Dioxide 25 BUN 28 H Creatinine 1.12 Glucose 164 H Calcium 9.3 Cardiac Enzymes 07/03/24 07/03/24 Range/Units 17:04 23:11 Troponin I 0.092 H* 0.096 H* (0.000-0.034) ng/mL Liver Function 07/03/24 07/03/24 Range/Units 17:04 17:06 Total Bilirubin 0.6 Cancelled (0.2-1.3) mg/dL AST 26 Cancelled (17-59) U/L ALT 19 Cancelled (6-50) U/L Alkaline Phosphatase 99 Cancelled (38-126) U/L Albumin 4.1 Cancelled (3.5-5.1) g/dL Urine 07/03/24 Range/Units 18:40 Urine Color Yellow (Yellow) Urine Appearance Clear (Clear) Urine pH 6.0 (5.0-9.0) Ur Specific Friend 1.012 (1.001-1.035) Urine Protein 1+ H (Negative) mg/dL Urine Glucose (UA) Trace H (Negative) mg/dL
--- NOTE | 2024-07-04 12:12 | PC.NURSE ---
1155- received pt to room 207 via bed frm ICU( IMU Overflow)- O2 on 3l/nc- pt oriented to room and routines of floor, isolation continued- monitor ST 120's
[2024-07-04] MEDS: methylPREDNISolone SOD SUCC 40 MG VIAL IV PUSH ×2 (12:27→17:21)
[2024-07-04] MEDS: VANCOMYCIN 1,250 MG/NS 250 ML 1,250 MG/250 ML BAG 166.67 MG IVPB ×2 (12:28→13:32)
--- NOTE | 2024-07-04 12:31 | PC.NURSE ---
Patient transferred to [facility] at 1150 with belongings. Report given to JODIE Johnson
[2024-07-04] MEDS: BENZOCAINE/MENTHOL (*BKC) 18 EA LOZENGE 1 LOZENGE PO ×2 (17:25→20:36)
--- NOTE | 2024-07-04 17:34 | P.CONPL_ITS ---
Assessment and Plan Assessment and plan (1) Acute exacerbation of chronic obstructive pulmonary disease: Code(s): J44.1 - Chronic obstructive pulmonary disease with (acute) exacerbation Status: Acute Assessment and Plan: Patient carries a diagnosis of COPD. Seventy-four pack years tobacco use, currently smoking 4 inhalations of marijuana a day. Chronic hypoxemic respiratory failure prescribed 3 L nasal cannula 24-7 approximately 1 week ago. Patient presents with 7 days worsening shortness of breath, hypoxemia, increased phlegm production which is now dark colored, urine tox screen positive for THC and cocaine. He was recently discharged from the hospital and went home and did smoke marijuana which may have been laced with cocaine. He presents with hypoxemic and hypercarbic respiratory failure with pH 7.27/61/96. Plan: I will continue Solu-Medrol 40 mg IV q.6 hours. I will Continue his levalbuterol and ipratropium nebulizers at q.6 hours. Patient states he has difficulty expectorating and I will add guaifenesin 1200 mg p.o. b.i.d. I will order CT angiogram of the chest to assess for pulmonary embolism and assess for bullous emphysema and pneumonia. Blood cultures are positive and I continue cefepime and Doxycycline, both day 2 and vancomycin, day 1. I will send a respiratory pathogen panel looking for additional infectious etiologies. I also and urine pneumococcus, urine Legionella and mycoplasma IgM titers. Goal saturation 90-94%. Currently the patient is on 3 L with saturations 97%, wean accordingly. Will follow with you. (2) Acute respiratory failure with hypoxia and hypercapnia: Code(s): J96.01 - Acute respiratory failure with hypoxia; J96.02 - Acute respiratory failure with hypercapnia Status: Acute Assessment and Plan: He presents with hypoxemic and hypercarbic respiratory failure with pH 7.27/61/96. The patient tells me he used BiPAP previously up until the last 6 months which she discontinue this. He tells me the BiPAP last night was very uncomfortable and he will not wear it tonight. Plan: Will leave the patient off BiPAP tonight and check an ABG in the morning to reassess his hypercarbic respiratory f History of Present Illness History of Present Illness Consult date: 07/04/24 Chief complaint: Hypercapneic respiratory failure Narrative: 07/04/2024: This is a new pulmonary consult for COPD 64-year-old with a history of CHF, COPD, obstructive sleep apnea, bipolar. The patient tells me he is diagnosed with COPD 10 years ago and has been on haler since then. Last week he was admitted to [facility] and was started on 3 L oxygen 24-7. patient smoked tobacco from age [age] at 2 packs per day for total of 74 pack years. For the last 6 months patient has smoked 4 inhalations of marijuana a day. Patient states he was diagnosed with obstructive sleep apnea 10 years ago and he was placed on BiPAP. He wore BiPAP until approximately 6 months ago when he had lost weight and they decrease the pressures and he lost more weight and he decided to discontinue this himself. On 07/03/2024 the patient presented with shortness of breath. EMS noted saturations 84% on room air and he was placed on CPAP. In the emergency department his blood pressure was 129/94, heart rate 110, respirations 23, saturations were 98% on BiPAP. He had take expiratory wheezes bilaterally. His white blood cell count was 8.8, his creatinine was 1.37, his BNP was 4130. His COVID, influenza and RSV RT PCR studies were negative. His urine tox screen was positive for cocaine and cannabis. His initial blood gas was 7.27, 61, 96 on BiPAP. patient was treated with Solu-Medrol, cefepime, azithromycin, and bronchodilators. His MRSA swab is positive. 07/04/2024 patient was transferred out of the ICU. ABG on BiPAP 18/8 rate of 24 was 7.34/45/77. Blood cultures were Gram-positive cocci and he was started on vancomycin. Currently the patient tells me he is better than when he arrived. His phlegm is the same and dark. His wheezing is better. Patient tells me he will not be able to wear the BiPAP tonight. DATA: CHEST RADIOGRAPH CLINICAL HISTORY: SOB . COMPARISON: None available TECHNIQUE: Single portable view of the chest. FINDINGS The cardiomediastinal silhouette is unremarkable. Significant peribronchial thickening is identified bilaterally. Panlobular emphysematous disease is suspected. Asymmetric density within the right mid to lower lung field for which cross- sectional imaging (noncontrast enhanced CT examination of the chest) is suggested when patient is clinically able. IMPRESSION: Peribronchial thickening with panlobular emphysematous disease. No focal infiltrate or effusion. Asymmetric density within the right mid to lower lung field for which cross- sectional imaging (noncontrast enhanced CT examination of the chest) is suggested when patient is clinically able. Review of Systems 2 Constitutional: Constitutional: Reports no additional constitutional complaints Eyes: Eyes: Reports no additional eye complaints ENT: Reports system reviewed and no additional complaints, except as documented Cardiovascular: Cardiovascular: Reports no additional cardiovascular complaints Respiratory: Respiratory: Reports no additional respiratory complaints Gastrointestinal: Gastrointestinal: Reports no additional gastrointestinal complaints Musculoskeletal: Musculoskeletal: Reports no additional musculoskeletal complaints Neurologic: Reports system reviewed and no additional complaints, except as documented Psychiatric: Psychiatric: Reports no additional psychiatric complaints Endocrine: Endocrine: Reports no additional endocrine complaints Hematologic/Lymphatic: Hematologic/Lymphatic: Reports no additional hematologic/lymphatic complaints Allergic/Immunologic: Allergic/Immunologic: Reports no additional allergic/immunologic complaints [facility] Past Medical History Medical History (Updated 07/04/24 @ 08:46 by Chhaya Pearson DO) Continuous tobacco abuse Chronic respiratory failure with hypoxia and hypercapnia On home O2 of 3 L Bipolar disorder CHF (congestive heart failure) COPD (chronic obstructive pulmonary disease) Surgical History Surgical History No significant past surgical history Family History Family History (Updated 07/04/24 @ 08:35 by Chhaya Pearson DO) Other Unknown family medical history Social History Social History (Updated 07/04/24 @ 08:37 by Chhaya Pearson DO) Social History: Code status: Full code (per EMR) Surrogate decision maker: Aura Campos (sister) Smoking packs per day: 1.5 Smoking cigarettes per day: 30.0 Years smoked: 40 Smoking pack-years: 60.00 Smoking status: Current every day smoker Tobacco type: cigarettes Alcohol intake: never Substance use type: marijuana Last use: 07/02/2024 Spiritual care concerns: No Meds Home Medications and Allergies Home Medications ?Medication ?Instructions ?Recorded ?Confirmed ?Type albuterol sulfate 90 mcg/actuation 2 puff inhalation Q4-6H PRN 07/03/24 07/03/24 History aerosol inhaler (Ventolin HFA) Shortness of breath apixaban 5 mg tablet (Eliquis) 5 mg PO BID 07/03/24 07/03/24 History aripiprazole 2 mg tablet 2 mg PO DAILY 07/03/24 07/03/24 History budesonide-formoterol HFA 160 2 puff inhalation Q12H 07/03/24 07/03/24 History mcg-4.5 mcg/actuation aerosol inhaler (Symbicort) diltiazem HCl 360 mg 360 mg PO DAILY 07/03/24 07/03/24 History capsule,extended release 24 hr furosemide 40 mg tablet 40 mg PO DAILY 07/03/24 07/03/24 History losartan 50 mg tablet 50 mg PO DAILY 07/03/24 07/03/24 History mometasone-formoterol HFA 200 2 puff inhalation BID 07/03/24 07/03/24 History mcg-5 mcg/actuation aerosol inhaler (Dulera) umeclidinium 62.5 mcg/actuation 1 inh inhalation ONCE 07/03/24 07/03/24 History blister powder for inhalation (Incruse Ellipta) Allergies Allergy/AdvReac Type Severity Reaction Status Date / Time piroxicam Allergy Unknown Unknown Verified 07/03/24 17:10 Vital Signs Vital Signs - 24 hr 07/03/24 17:35 07/03/24 17:35 07/03/24 17:43 Temperature Pulse Rate 113 H 113 H Respiratory Rate 24 H Blood Pressure Pulse Oximetry 100 95 Oxygen Delivery BiPAP BiPAP Oxygen Flow Rate Fraction of Inspired Oxygen 07/03/24 17:45 07/03/24 17:45 07/03/24 17:46 Temperature Pulse Rate 104 H 119 H Respiratory Rate 19 Blood Pressure 117/78 Pulse Oximetry 95 95 Oxygen Delivery BiPAP Oxygen Flow Rate Fraction of Inspired Oxygen 07/03/24 17:54 07/03/24 18:06 07/03/24 18:10 Temperature Pulse Rate 114 H 116 H 131 H Respiratory Rate 20 20 20 Blood Pressure 118/83 Pulse Oximetry 99 Oxygen Delivery Oxygen Flow Rate Fraction of Inspired Oxygen 07/03/24 18:16 07/03/24 18:32 07/03/24 18:32 Temperature Pulse Rate 121 H 125 H 130 H Respiratory Rate 26 H 20 19 Blood Pressure 145/94 H 131/84 Pulse Oximetry Oxygen Delivery Oxygen Flow Rate Fraction of Inspired Oxygen 02/04/25 18:46 07/03/24 19:16 07/03/24 19:30 Temperature Pulse Rate 131 H 114 H 120 H Respiratory Rate 20 23 H 26 H Blood Pressure 120/94 H 139/87 123/85 Pulse Oximetry 91 96 Oxygen Delivery Oxygen Flow Rate Fraction of Inspired Oxygen 07/03/24 20:50 07/03/24 21:40 07/03/24 22:00 Temperature 37.2 C Pulse Rate 129 H 124 H 122 H Respiratory Rate 28 H 21 H Blood Pressure 122/82 105/61 Pulse Oximetry 97 96 Oxygen Delivery Oxygen Flow Rate Fraction of Inspired Oxygen 07/03/24 22:00 07/03/24 22:40 07/04/24 00:00 Temperature 37.1 C Pulse Rate 126 H 126 H 132 H Respiratory Rate 28 H 28 H 26 H Blood Pressure 117/73 118/81 Pulse Oximetry 95 95 98 Oxygen Delivery BiPAP Oxygen Flow Rate Fraction of Inspired Oxygen 30 07/04/24 00:00 07/04/24 01:35 07/04/24 02:00 Temperature Pulse Rate 121 H 92 130 H Respiratory Rate 24 H Blood Pressure Pulse Oximetry 97 Oxygen Delivery BiPAP Oxygen Flow Rate Fraction of Inspired Oxygen 07/04/24 02:00 07/04/24 03:51 07/04/24 04:00 Temperature 36.9 C Pulse Rate 130 H 125 H 125 H Respiratory Rate 24 H 23 H 19 Blood Pressure 110/86 134/95 H Pulse Oximetry 99 98 98 Oxygen Delivery BiPAP Oxygen Flow Rate Fraction of Inspired Oxygen 30 07/04/24 04:00 07/04/24 06:00 07/04/24 06:00 Temperature Pulse Rate 125 H 125 H 125 H Respiratory Rate 24 H Blood Pressure 142/101 H Pulse Oximetry 92 Oxygen Delivery Oxygen Flow Rate Fraction of Inspired Oxygen 07/04/24 08:00 07/04/24 08:00 07/04/24 08:00 Temperature 36.4 C Pulse Rate 134 H 127 H 128 H Respiratory Rate 19 21 H Blood Pressure 153/95 H Pulse Oximetry 98 98 Oxygen Delivery BiPAP Oxygen Flow Rate Fraction of Inspired Oxygen 30 07/04/24 08:30 07/04/24 08:39 07/04/24 08:43 Temperature Pulse Rate 131 H 125 H Respiratory Rate 24 H 24 H Blood Pressure Pulse Oximetry 97 Oxygen Delivery Nasal Cannula Oxygen Flow Rate 3 Fraction of Inspired Oxygen 07/04/24 09:00 07/04/24 10:00 07/04/24 10:00 Temperature Pulse Rate 130 H 130 H Respiratory Rate 23 H Blood Pressure 144/94 H Pulse Oximetry 98 95 Oxygen Delivery Nasal Cannula Oxygen Flow Rate 3 Fraction of Inspired Oxygen 07/04/24 12:00 07/04/24 12:00 07/04/24 12:03 Temperature 36.8 C Pulse Rate 120 H 120 H 129 H Respiratory Rate 18 20 Blood Pressure 135/85 Pulse Oximetry 98 99 Oxygen Delivery Nasal Cannula Oxygen Flow Rate 3 Fraction of Inspired Oxygen 07/04/24 13:59 07/04/24 14:00 07/04/24 14:13 Temperature Pulse Rate 129 H 129 H 129 H Respiratory Rate 20 20 Blood Pressure Pulse Oximetry Oxygen Delivery Oxygen Flow Rate Fraction of Inspired Oxygen 07/04/24 16:00 Temperature 36.4 C Pulse Rate 135 H Respiratory Rate 20 Blood Pressure 134/94 H Pulse Oximetry 97 Oxygen Delivery Oxygen Flow Rate Fraction of Inspired Oxygen Exam 2 Const: General: cooperative, healthy appearing and comfortable O rientation/consciousness: oriented to person, oriented to place and oriented to time HENMT: Head: normal to inspection Ears: hearing grossly normal bilaterally Eyes: General: appearance normal, both eyes and all related structures Neck: Neck: normal visual inspection Chest: Chest palpation & inspection: normal inspection of the chest Resp: Effort & Inspection: normal respiratory effort and able to speak in complete sentences Auscultation: no crackles, no rales, no rhonchi, no wheezes and diminished lung sounds Other: No wheezes currently Cardio: Jugular venous distension: no JVD GI: Inspection: normal to inspection GI Palp: No abdominal tenderness Skin: General skin exam: normal color Neuro: General: oriented to person, oriented to place and oriented to time Extrem: General: normal to inspection Psych: Appearance: grossly normal Results Laboratory Findings 07/04/24 04:33 07/04/24 08:56 ABG, PT/INR, D-dimer: ABG ABG pH 7.340 (7.350-7.450) L 07/04/24 01:07 ABG pCO2 44.8 mmHg (35.0-45.0) 07/04/24 01:07 ABG pO2 76.9 mmHg (80.0-100.0) L 07/04/24 01:07 ABG O2 Saturation 94.6 % (95.0-100.0) L 07/04/24 01:07 PT/INR, D-dimer PT 13.8 Seconds (11.1-14.7) 07/03/24 17:05 INR 1.0 07/03/24 17:05 Abnormal lab findings: Abnormal Labs 07/03/24 07/03/24 07/03/24 17:04 17:06 17:10 WBC RBC 3.75 L Hgb 11.6 L Hct 38.5 L MCV 102.7 H MCHC 30.1 L RDW 15.2 H Plt Count MPV 10.5 H Immature Gran % (Auto) 0.6 H Neut % (Auto) 82.0 H Lymph % (Auto) 11.0 L [place] % (Auto) Baso % (Auto) Lymph # (Auto) [place] # (Auto) Abs Immat Gran (auto) 0.05 H Absolute Neuts (auto) 7.2 H ABG pH 7.273 L* ABG pCO2 60.6 H* ABG pO2 ABG HCO3 27.4 H ABG O2 Saturation ABG O2 Content 15.4 L Oxyhemoglobin Carboxyhemoglobin Reduced Hemoglobin Total Hemoglobin 11.6 L Potassium BUN 27 H Creatinine 1.37 H Estimated GFR 52 L Glucose 132 H POC Capillary Glucose Troponin I 0.092 H* NT-Pro-B Natriuret Pep 4130 H Urine Protein Urine Glucose (UA) Nasal MRSA (PCR) Urine Cocaine Screen U Cannabinoids Screen 07/03/24 07/03/24 07/03/24 18:00 18:40 20:13 WBC RBC Hgb Hct MCV MCHC RDW Plt Count MPV Immature Gran % (Auto) Neut % (Auto) Lymph % (Auto) [place] % (Auto) Baso % (Auto) Lymph # (Auto) [place] # (Auto) Abs Immat Gran (auto) Absolute Neuts (auto) ABG pH 7.285 L* 7.303 L ABG pCO2 58.7 H 54.8 H ABG pO2 57.9 L 57.8 L ABG HCO3 27.3 H 26.5 H ABG O2 Saturation 86.2 L* 86.9 L* ABG O2 Content 14.3 L 14.8 L Oxyhemoglobin 86.7 L* 87.7 L* Carboxyhemoglobin 3.6 H Reduced Hemoglobin 9.4 H Total Hemoglobin 11.7 L Potassium BUN Creatinine Estimated GFR Glucose POC Capillary Glucose Troponin I NT-Pro-B Natriuret Pep Urine Protein 1+ H Urine Glucose (UA) Trace H Nasal MRSA (PCR) Urine Cocaine Screen Positive A U Cannabinoids Screen Positive A 07/03/24 07/03/24 07/03/24 21:51 21:56 23:11 WBC RBC Hgb Hct MCV MCHC RDW Plt Count MPV Immature Gran % (Auto) Neut % (Auto) Lymph % (Auto) [place] % (Auto) Baso % (Auto) Lymph # (Auto) [place] # (Auto) Abs Immat Gran (auto) Absolute Neuts (auto) ABG pH ABG pCO2 ABG pO2 ABG HCO3 ABG O2 Saturation ABG O2 Content Oxyhemoglobin Carboxyhemoglobin Reduced Hemoglobin Total Hemoglobin Potassium BUN Creatinine Estimated GFR Glucose POC Capillary Glucose 156 H Troponin I 0.096 H* NT-Pro-B Natriuret Pep Urine Protein Urine Glucose (UA) Nasal MRSA (PCR) Detected A* Urine Cocaine Screen U Cannabinoids Screen 07/04/24 07/04/24 07/04/24 01:07 04:33 08:56 WBC 2.8 L RBC 3.54 L Hgb 11.0 L Hct 35.6 L MCV 100.6 H MCHC 30.9 L RDW 14.8 H Plt Count 143 L MPV 10.6 H Immature Gran % (Auto) Neut % (Auto) 90.9 H Lymph % (Auto) 7.6 L [place] % (Auto) 1.1 L Baso % (Auto) 0.0 L Lymph # (Auto) 0.21 L [place] # (Auto) 0.0 L Abs Immat Gran (auto) Absolute Neuts (auto) ABG pH 7.340 L ABG pCO2 ABG pO2 76.9 L ABG HCO3 ABG O2 Saturation 94.6 L ABG O2 Content 15.4 L Oxyhemoglobin Carboxyhemoglobin Reduced Hemoglobin Total Hemoglobin 11.7 L Potassium 5.4 H BUN 27 H 28 H Creatinine Estimated GFR Glucose 163 H 164 H POC Capillary Glucose Troponin I NT-Pro-B Natriuret Pep Urine Protein Urine Glucose (UA) Nasal MRSA (PCR) Urine Cocaine Screen U Cannabinoids Screen Diagnostic Findings Additional studies: ITS Impressions Chest X-Ray 07/03/24 17:59
[2024-07-04] MEDS: guaiFENesin 12 HR 600 MG TABCR 1200 MG PO (20:35)
[2024-07-05] VITALS (31 sets, daily range): BP systolic 124–148; BP diastolic 81–98; PULSE 98–147; RESP 18–22; TEMP 36.4–37; O2SAT 92–99
[2024-07-05] MEDS: methylPREDNISolone SOD SUCC 40 MG VIAL IV PUSH ×2 (01:15→05:58)
[2024-07-05] MEDS: LEVALBUTEROL NEB 1.25 MG/3 ML INHALATION ×4 (02:32→21:06)
[2024-07-05] MEDS: IPRATROPIUM BR 0.02% INH SOLN 0.5 MG/2.5 ML VIAL INHALATION ×4 (02:32→21:06)
[2024-07-05] MEDS: DOXYCYCLINE 100 MG/NS 100 ML 100 MG/100 ML BAG IVPB (03:05)
[2024-07-05 05:38] LABS: Basophils Percent Auto 0.1 % (0.2-1.2); Hemoglobin 10.8 g/dL (14.0-18.0); Immature Granulocyte Absolute 0.05 K/mm3 (0.00-0.031); Immature Granulocyte Percent A 0.5 % (0-0.5); Lymphocytes Absolute Auto 0.24 K/mm3 (0.9-3.2); Lymphocytes Percent Auto 2.5 % (18.3-44.2); Mean Corpuscular HGB Conc 31.8 g/dl (32-36); Mean Corpuscular Hemoglobin 31.2 pg (26-34); Mean Corpuscular Volume 98.3 fl (80-100); Mean Platelet Volume 10.8 fl (7.4-10.4); Monocytes Absolute Auto 0.3 K/mm3 (0.1-0.6); Monocytes Percent Auto 2.7 % (2.6-8.5); Neutrophils Absolute Auto 9.2 K/mm3 (1.3-6.7); Neutrophils Percent Auto 94.2 % (45.5-73.1); Platelet Count Result 163 k/mm3 (150-375); Red Blood Count 3.46 M/mm3 (4.6-6.20); Red Cell Distribution Width 15.1 % (11.5-14.5); White Blood Count 9.7 K/mm3 (4.5-10.0)
[2024-07-05 05:53] LABS: Alanine Aminotransferase 17 U/L (6-50); Albumin Level 3.5 g/dL (3.5-5.1); Alkaline Phosphatase 83 U/L (38-126); Anion Gap 7 mmol/L (4-12); Aspartate Amino Transferase 18 U/L (17-59); Bilirubin,Total 0.6 mg/dL (0.2-1.3); Blood Urea Nitrogen 31 mg/dL (9-20); Calcium 9.1 mg/dL (8.4-10.2); Carbon Dioxide 28 mmol/L (22-30); Chloride 102 mmol/L (98-107); Estimated CRCL calculation 68 ml/min; Estimated Glomerular Filt Rate > 60; Glucose 132 mg/dL (65-110); Magnesium 2.2 mg/dL (1.6-2.3); Phosphorus 3.5 mg/dL (2.5-4.5); Potassium 4.5 mmol/L (3.4-5.0); Sodium 137 mmol/L (137-145)
[2024-07-05] MEDS: VANCOMYCIN 1,500 MG/NS 500 ML 1,500 MG/500 ML BAG 250 MG IVPB (05:57)
[2024-07-05] MEDS: CEFEPIME 2 GM/NS 50 ML 2 GM/50 ML BAG IVPB ×2 (05:57→20:37)
[2024-07-05 06:15] LABS: Base Excess ABG 3.1 mEq/l (+/-2.0); Carboxyhemoglobin 0.5 % THb (0-2.0); Fractional Inspired Oxygen 32 %; HCO3 ABG 27.1 mEq/l (22.0-26.0); Oxygen Content ABG 15.6 %vol (16.0-22.0); Oxygen Saturation ABG 95.2 % (95.0-100.0); PCO2 ABG 39.1 mmHg (35.0-45.0); PO2 ABG 71.4 mmHg (80.0-100.0); PO2 FiO2 Ratio Arterial Blood 2.23 %; Reduced Hemoglobin 5.5 %THb (0-5.0); Total Hemoglobin 11.8 g/dL (12.0-18.0); pH ABG 7.459 (7.350-7.450)
[2024-07-05 06:33] LABS: Device NASAL CANNULA; Modified Allen's Test Pass; Site Drawn RIGHT RADIAL
[2024-07-05 08:29] LABS: NT Pro B Type Natriuretic Pept 4940 pg/mL (19.9-100)
--- NOTE | 2024-07-05 08:39 | P.PNIM_ITS ---
Progress Note: A&P Assessment and Plan (1) Polysubstance use disorder: Code(s): F19.90 - Other psychoactive substance use, unspecified, uncomplicated Status: Acute (2) CHF exacerbation: Qualifiers: Heart failure type: unspecified Qualified Code(s): I50.9 - Heart failure, unspecified Code(s): I50.9 - Heart failure, unspecified Status: Acute (3) Acute respiratory failure with hypoxia and hypercapnia: Code(s): J96.01 - Acute respiratory failure with hypoxia; J96.02 - Acute respiratory failure with hypercapnia Status: Acute (4) Acute exacerbation of chronic obstructive pulmonary disease: Code(s): J44.1 - Chronic obstructive pulmonary disease with (acute) exacerbation Status: Acute (5) Elevated troponin: Code(s): R79.89 - Other specified abnormal findings of blood chemistry Status: Acute (6) Tachycardia: Code(s): R00.0 - Tachycardia, unspecified Status: Acute (7) CHF (congestive heart failure): Code(s): I50.9 - Heart failure, unspecified Status: Acute Plan Acute respiratory failure with hypoxia and hypercapnia: Code(s): J96.01 - Acute respiratory failure with hypoxia; J96.02 - Acute respiratory failure with hypercapnia Status: Acute Assessment and Plan: Patient presented ED with a chief complaint of shortness breath ABG showed hypercapnic and hypoxic resp failure Patient was placed on BiPAP Patient is on BiPAP p.r.n. at night Currently patient is on nasal cannular Likely resulting COPD exacerbation n Consult passenger locomotive engineer, appreciate passenger locomotive engineer consultation Acute exacerbation of chronic obstructive pulmonary disease: Code(s): J44.1 - Chronic obstructive pulmonary disease with (acute) exacerbation Status: Acute Assessment and Plan: Chest x-ray IMPRESSION: Peribronchial thickening with panlobular emphysematous disease. No focal infiltrate or effusion. Asymmetric density within the right mid to lower lung field for which cross- sectional imaging (noncontrast enhanced CT examination of the chest) is suggested when patient is clinically able. -on azithromycin, with cefepime cefepime and vancomycin -will deescalate him blood cultures are negative -continue methylprednisolone, -continue Xopenex and Atroven Current smoker: Code(s): F17.200 - Nicotine dependence, unspecified, uncomplicated Status: Acute Assessment and Plan: Counseled patient on cessation of smoking Polysubstance use disorder: Code(s): F19.90 - Other psychoactive substance use, unspecified, uncomplicated Status: Acute Assessment and Plan: Urine drug screen was positive for cocaine and cannabis Counseled patient cessation of cannabis and cocaine use Atrial flutter Code(s): R00.0 - Tachycardia, unspecified Status: Acute Assessment and Plan: On no history of atrial flutter Could be related to cocaine, anxiety, hypercapnic/hypoxic respiratory failure Start Cardizem drip 5mg/h, heart rate is better controlled but not in the target range Consult bpm developer for evaluation treatment CHF (congestive heart failure): Code(s): I50.9 - Heart failure, unspecified Status: Acute Assessment and Plan: Euvolemic at this time, continue to monitor Echocardiogram 2/5 1. Complete two-dimensional, color flow and Doppler transthoracic echocardiogram is performed. 2. Study is limited due to tachycardia. 3. The left ventricle is normal in size and systolic function. The left ventricular ejection fraction is visually estimated to be 50-55%. 4. The right ventricle is normal in size and systolic function. 5. There is a small amount of pericardial effusion. Subjective Date/time seen: 07/05/24 08:39 Interval history: I saw examined patient today. Patient still has cough with scant phlegm, still has significant dyspnea bed is improving. Patient has a palpitation, denied lightheadedness, patient is anxious. Patient denies chest pain abdomen pain nausea vomiting. Patient is afebrile, blood pressure stable, patient has a flutter RVR, tachypnea Exam Narrative: GENERAL: Ill-appearing, in no acute distress. Well-nourished. - EYES: EOMI. Anicteric. - HENT: Moist mucous membranes. - LUNGS: Coarse breath sound bilaterall y, scattered wheezing, tachypnea, - CARDIOVASCULAR: Irregular irregular r hythm, No murmur. No JVD. - ABDOMEN: Soft, non-tender and non-dist ended. No palpable masses. - EXTREMITIES: No edema. Peripheral puls es 2+. Non-tender. - NEUROLOGIC: No focal neurological defi cits. CN II-XII grossly intact. - PSYCHIATRIC: Awake, Alert and oriented x 3. Anxious mood and affect. - SKIN: No rashes or lesions. Warm. - LYMPH: No cervical lymphadenopathy. Objective Data Vital Signs Vital Signs: Vital Signs - 24 hr 07/04/24 08:43 07/04/24 09:00 07/04/24 10:00 Temperature Pulse Rate 130 H Respiratory Rate 23 H Blood Pressure 144/94 H Pulse Oximetry 97 98 95 Oxygen Delivery Nasal Cannula Nasal Cannula Oxygen Flow Rate 3 3 07/04/24 10:00 07/04/24 12:00 07/04/24 12:00 Temperature Pulse Rate 130 H 120 H 120 H Respiratory Rate 18 Blood Pressure Pulse Oximetry 98 Oxygen Delivery Nasal Cannula Oxygen Flow Rate 3 07/04/24 12:03 07/04/24 13:59 07/04/24 14:00 Temperature 98.2 F Pulse Rate 129 H 129 H 129 H Respiratory Rate 20 20 Blood Pressure 135/85 Pulse Oximetry 99 Oxygen Delivery Oxygen Flow Rate 07/04/24 14:13 07/04/24 16:00 07/04/24 16:45 Temperature 97.6 F Pulse Rate 129 H 135 H 127 H Respiratory Rate 20 20 Blood Pressure 134/94 H Pulse Oximetry 97 90 Oxygen Delivery Nasal Cannula Oxygen Flow Rate 3 07/04/24 16:45 07/04/24 20:00 07/04/24 20:00 Temperature 97.4 F L Pulse Rate 127 H 125 H 121 H Respiratory Rate 20 Blood Pressure 153/96 H Pulse Oximetry 98 90 Oxygen Delivery Nasal Cannula Oxygen Flow Rate 3 07/04/24 20:00 07/04/24 21:14 07/04/24 21:15 Temperature Pulse Rate 121 H 125 H Respiratory Rate 20 Blood Pressure Pulse Oximetry 98 Oxygen Delivery Nasal Cannula Oxygen Flow Rate 3 07/04/24 21:30 07/04/24 22:00 07/05/24 00:00 Temperature Pulse Rate 121 H 112 H 123 H Respiratory Rate 20 Blood Pressure Pulse Oximetry 92 Oxygen Delivery Nasal Cannula Oxygen Flow Rate 3 07/05/24 00:00 07/05/24 00:00 07/05/24 02:00 Temperature 98.6 F Pulse Rate 129 H 129 H 119 H Respiratory Rate 18 Blood Pressure 137/97 H Pulse Oximetry 95 Oxygen Delivery Oxygen Flow Rate 07/05/24 02:33 07/05/24 02:46 07/05/24 04:00 Temperature 98.6 F Pulse Rate 126 H 123 H 135 H Respiratory Rate 20 20 18 Blood Pressure 134/97 H Pulse Oximetry 96 Oxygen Delivery Oxygen Flow Rate 07/05/24 04:00 07/05/24 04:00 07/05/24 06:00 Temperature Pulse Rate 131 H 135 H 133 H Respiratory Rate Blood Pressure Pulse Oximetry 96 Oxygen Delivery Nasal Cannula Oxygen Flow Rate 3 07/05/24 08:30 Temperature 97.5 F L Pulse Rate 138 H Respiratory Rate 20 Blood Pressure 148/93 H Pulse Oximetry 97 Oxygen Delivery Oxygen Flow Rate Intake/Output Intake/Output: Intake & Output 07/02/24 07/03/24 07/04/24 07/05/24 23:59 23:59 23:59 23:59 Intake Total 350 3570 150 Output Total 1600 2150 Balance 350 1969 -1999 Meds/Results Medications: Active Medications Generic Name Dose Route Start Last Admin Trade Name Freq PRN Reason Stop Dose Admin Apixaban 5 mg 07/04/24 09:00 07/04/24 20:36 Apixaban 5 Mg Tablet PO 5 mg Q12HR JENNY Administration Aripiprazole 2 mg 07/04/24 09:00 07/04/24 09:30 Aripiprazole 2 Mg Tablet PO 2 mg DAILY JENNY Administration Benzocaine 1 lozenge 07/04/24 09:51 07/04/24 20:36 Benzocaine/Menthol (*Bkc) 18 Ea Lozenge PO 1 lozenge PRN PRN Administration Sore Throat Diltiazem HCl 360 mg 07/04/24 09:00 07/04/24 09:16 Diltiazem Hcl Cd 180 Mg Cap.24hr PO 360 mg QAM JENNY Administration Guaifenesin 1,200 mg 07/04/24 21:00 07/04/24 20:35 Guaifenesin 12 Hr 600 Mg Tabcr PO 1,200 mg Q12HR JENNY Administration Cefepime HCl 2 gm in 50 mls @ 100 mls/hr 07/04/24 06:00 07/05/24 06:27 Maxipime 2 Gm/Ns 50 Ml IVPB Infused Q12H JENNY Infusion Doxycycline Hyclate 100 mg in 100 mls @ 100 mls/hr 07/04/24 02:00 07/05/24 04:05 Vibramycin 100 Mg/Ns 100 Ml IVPB Infused Q12H JENNY Infusion Vancomycin HCl 1,500 mg in 500 mls @ 250 mls/hr 07/05/24 06:00 07/05/24 05:57 Vancomycin 1,500 Mg/Ns 500 Ml IVPB 250 mls/hr Q18H JENNY Administration Ipratropium [place] 0.5 mg 07/04/24 02:00 07/05/24 02:32 Ipratropium Br 0.02% Inh Soln 0.5 Mg/2.5 Ml Vial INHALATION 0.5 mg Q6HRT JENNY Administration Levalbuterol HCl 1.25 mg 07/04/24 08:00 07/05/24 02:32 Levalbuterol Neb 1.25 Mg/3 Ml INHALATION 1.25 mg Q6HRT JENNY Administration Losartan Potassium 50 mg 07/04/24 09:00 07/04/24 09:30 Losartan Potassium 50 Mg Tablet PO 50 mg DAILY JENNY Administration Methylprednisolone Sodium Succinate 40 mg 07/04/24 12:00 07/05/24 05:58 Methylprednisolone Sod Succ 40 Mg Vial IV PUSH 40 mg Q6HR JENNY Administration Perflutren Lipid Microsphere 0 ml 07/04/24 07:12 Perflutren Lipid Microspheres 1.5 Ml Vial Diluted To 10 Ml Total Volume IV PUSH 07/07/24 07:12 ONCE PRN adequate visualization Protocol Radiology Results: ITS Impressions Chest X-Ray 07/03/24 17:59 IMPRESSION: Peribronchial thickening with panlobular emphysematous disease. No focal infiltrate or effusion. Asymmetric density within the right mid to lower lung field for which cross- sectional imaging (noncontrast enhanced CT examination of the chest) is suggested when patient is clinically able. Chest CTA 07/04/24 21:28 IMPRESSION: No pulmonary embolus. No thoracic aortic dissection. Panlobular emphysematous change with additional chronic pulmonary disease. Labs Labs: Laboratory Results - last 24 hr 07/04/24 07/05/24 07/05/24 08:56 05:10 05:14 WBC 9.7 RBC 3.46 L Hgb 10.8 L Hct 34.0 L MCV 98.3 MCH 31.2 MCHC 31.8 L RDW 15.1 H Plt Count 163 MPV 10.8 H Immature Gran % (Auto) 0.5 Neut % (Auto) 94.2 H Lymph % (Auto) 2.5 L Drew % (Auto) 2.7 Eos % (Auto) 0.0 Baso % (Auto) 0.1 L Lymph # (Auto) 0.24 L Drew # (Auto) 0.3 Eos # (Auto) 0.0 Baso # (Auto) 0.0 Abs Immat Gran (auto) 0.05 H Absolute Neuts (auto) 9.2 H Absolute Nucleated RBC 0.000 Nucleated RBC % 0.0 Puncture Site ABG pH ABG pCO2 ABG pO2 ABG PO2/FiO2 Ratio ABG HCO3 ABG O2 Saturation ABG O2 Content ABG Base Excess A-a Gradient Oxyhemoglobin Carboxyhemoglobin Methemoglobin Reduced Hemoglobin Total Hemoglobin O2 Delivery Device O2 Liters/Min FiO2 Sodium 139 137 Potassium 4.4 4.5 Chloride 103 102 Carbon Dioxide 25 28 Anion Gap 11 7 BUN 28 H 31 H Creatinine 1.12 1.10 Estim Creat Clear Calc 67 68 Estimated GFR > 60 > 60 Glucose 164 H 132 H Calcium 9.3 9.1 Phosphorus 3.5 Magnesium 2.2 Total Bilirubin 0.6 AST 18 ALT 17 Alkaline Phosphatase 83 NT-Pro-B Natriuret Pep 4940 H Total Protein 6.0 L Albumin 3.5 07/05/24 06:06 WBC RBC Hgb Hct MCV MCH MCHC RDW Plt Count MPV Immature Gran % (Auto) Neut % (Auto) Lymph % (Auto) Drew % (Auto) Eos % (Auto) Baso % (Auto) Lymph # (Auto) Drew # (Auto) Eos # (Auto) Baso # (Auto) Abs Immat Gran (auto) Absolute Neuts (auto) Absolute Nucleated RBC Nucleated RBC % Puncture Site Right radial ABG pH 7.459 H ABG pCO2 39.1 ABG pO2 71.4 L ABG PO2/FiO2 Ratio 2.23 ABG HCO3 27.1 H ABG O2 Saturation 95.2 ABG O2 Content 15.6 L ABG Base Excess 3.1 A-a Gradient 111.0 Oxyhemoglobin 94.0 Carboxyhemoglobin 0.5 Methemoglobin 0.0 Reduced Hemoglobin 5.5 H Total Hemoglobin 11.8 L O2 Delivery Device Nasal cannula O2 Liters/Min 3.0 FiO2 32 Sodium Potassium Chloride Carbon Dioxide Anion Gap BUN Creatinine Estim Creat Clear Calc Estimated GFR Glucose Calcium Phosphorus Magnesium Total Bilirubin AST ALT Alkaline Phosphatase NT-Pro-B Natriuret Pep Total Protein Albumin
[2024-07-05] MEDS: ARIPiprazole 2 MG TABLET PO (09:13)
[2024-07-05] MEDS: APIXABAN 5 MG TABLET PO ×2 (09:13→20:36)
[2024-07-05] MEDS: guaiFENesin 12 HR 600 MG TABCR 1200 MG PO ×2 (09:13→20:36)
[2024-07-05] MEDS: LOSARTAN POTASSIUM 50 MG TABLET PO (09:13)
[2024-07-05] MEDS: dilTIAZem HCL CD 180 MG CAP.24HR 360 MG PO (09:13)
[2024-07-05] MEDS: dilTIAZem 100 MG/100 ML 100 MG/100 ML BAG IV CONT (09:17)
--- NOTE | 2024-07-05 09:43 | P.PNPL_ITS ---
Progress Note: A&P Assessment and Plan (1) Acute exacerbation of chronic obstructive pulmonary disease: Code(s): J44.1 - Chronic obstructive pulmonary disease with (acute) exacerbation Status: Acute Assessment and Plan: Patient carries a diagnosis of COPD. Seventy-four pack years tobacco use, currently smoking 4 inhalations of marijuana a day. Chronic hypoxemic respiratory failure prescribed 3 L nasal cannula 24-7 approximately 1 week ago. 07/04/24 Patient presents with 7 days worsening shortness of breath, hypoxemia, increased phlegm production which is now dark colored, urine tox screen positive for THC and cocaine. He was recently discharged from the hospital and went home and did smoke marijuana which may have been laced with cocaine. He presents with hypoxemic and hypercarbic respiratory failure with pH 7.27/61/96. Plan: I will continue Solu-Medrol 40 mg IV q.6 hours. I will Continue his levalbuterol and ipratropium nebulizers at q.6 hours. Patient states he has difficulty expectorating and I will add guaifenesin 1200 mg p.o. b.i.d. I will order CT angiogram of the chest to assess for pulmonary embolism and assess for bullous emphysema and pneumonia. Blood cultures are positive and I continue cefepime and Doxycycline, both day 2 and vancomycin, day 1. I will send a respiratory pathogen panel looking for additional infectious etiologies. I also and urine pneumococcus, urine Legionella and mycoplasma IgM titers. Goal saturation 90-94%. Currently the patient is on 3 L with saturations 97%, wean accordingly. Later in the day patient had a CTA scan of the chest which showed no pulmonary embolism, severe apical predominant panlobular emphysema, small right pleural effusion, no focal consolidations. 07/05/24: Patient tells me he is breathing normal. He has a small cough with a little bit of dark phlegm production. Currently patient is on 3 L with saturations 96%. White blood cell count 9.7, creatinine 1.10, he is afebrile. patient was on 3 L nasal cannula last night and blood gas this morning was 7.46/39/71. He was +1.9 L yesterday and since admission he is positive 320 mL. His weight today is 98 with an admission weight of 99.1. BNP has increased from 4130 on 07/03/2024 2 4940 today. His heart rate is 132 and has been started on a IV Dilt drip. Plan: I will change his Solu-Medrol to prednisone 40 mg p.o. q.day, day 3 of steroids. Continue levalbuterol and ipratropium nebulizers q.6 hours. Continue guaifenesin 1200 mg p.o. b.i.d.. Patient has no evidence of chronic hypercarbic respiratory failure on this morning's blood gas. Patient is on cefepime day 3, Receive 1 dose of azithromycin, doxycycline day 2 and vancomycin day 2. Follow blood cultures. Of note, he has no focal infiltrates on his CT scan suggestive of pneumonia. Discussed with Dr. Kingsley, will follow with you. (2) Acute respiratory failure with hypoxia and hypercapnia: Code(s): J96.01 - Acute respiratory failure with hypoxia; J96.02 - Acute respiratory failure with hypercapnia Status: Acute Assessment and Plan: Patient tells me he wears 3 L nasal cannula 24/7. He presents with hypoxemic and hypercarbic respiratory failure with pH 7.27/61/96. The patient tells me he used BiPAP previously up until the last 6 months which she discontinue this. He tells me the BiPAP last night was very uncomfortable and he will not wear it tonight. Plan: Will leave the patient off BiPAP tonight and check an ABG in the morning to reassess his hypercarbic respiratory failure. 07/05/24: patient was on 3 L nasal cannula last night and blood gas this morning was 7.46/39/71. Patient has no evidence of chronic hypercarbic respiratory failure on this morning's blood gas. Plan: I will perform overnight oximetry on 3 L nasal cannula tonight. Subjective Date/time seen: 07/05/24 09:43 Interval history: 07/04/2024: This is a new pulmonary consult for COPD 64-year-old with a history of CHF, COPD, obstructive sleep apnea, bipolar. The patient tells me he is diagnosed with COPD 10 years ago and has been on haler since then. Last week he was admitted to [facility] and was started on 3 L oxygen 24-7. patient smoked tobacco from age [age] at 2 packs per day for total of 74 pack years. For the last 6 months patient has smoked 4 inhalations of marijuana a day. Patient states he was diagnosed with obstructive sleep apnea 10 years ago and he was placed on BiPAP. He wore BiPAP until approximately 6 months ago when he had lost weight and they decrease the pressures and he lost more weight and he decided to discontinue this himself. On 07/03/2024 the patient presented with shortness of breath. EMS noted saturations 84% on room air and he was placed on CPAP. In the emergency department his blood pressure was 129/94, heart rate 110, respirations 23, saturations were 98% on BiPAP. He had take expiratory wheezes bilaterally. His white blood cell count was 8.8, his creatinine was 1.37, his BNP was 4130. His COVID, influenza and RSV RT PCR studies were negative. His urine tox screen was positive for cocaine and cannabis. His initial blood gas was 7.27, 61, 96 on BiPAP. patient was treated with Solu-Medrol, cefepime, azithromycin, and bronchodilators. His MRSA swab is positive. 07/04/2024 patient was transferred out of the ICU. ABG on BiPAP 14/01 rate of 24 was 7.34/45/77. Blood cultures were Gram-positive cocci and he was started on vancomycin. Currently the patient tells me he is better than when he arrived. His phlegm is the same and dark. His wheezing is better. Patient tells me he will not be able to wear the BiPAP tonight. Later in the day patient had a CTA scan of the chest which showed no pulmonary embolism, severe apical predominant panlobular emphysema, small right pleural effusion, no focal consolidations. 07/05/24: Patient tells me he is breathing normal. He has a small cough with a little bit of dark phlegm production. Currently patient is on 3 L with saturations 96%. White blood cell count 9.7, creatinine 1.10, he is afebrile. patient was on 3 L nasal cannula last night and blood gas this morning was 7.46/39/71. He was +1.9 L yesterday and since admission he is positive 320 mL. His weight today is 98 with an admission weight of 99.1. BNP has increased fr om 4130 on 07/03/2024 2 4940 today. His heart rate is 132 and has been started on a IV Dilt drip. 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 Pulmonary embolus suspected clinically TECHNIQUE: Computed tomographic angiography (CTA) of the chest was performed with 100 mL Omnipaque-350 intravenous contrast. The dose-length product was 755.71 mGy-cm. Maximum intensity projection 3D-reconstructions of the aorta and other arteries were constructed by the technologist on a separate workstation. COMPARISON: Reference is made with a plain view of the chest performed approximately 24 hours earlier FINDINGS: No filling defect within the main or proximal pulmonary arteries. The thoracic aorta is nonaneurysmal and no dissection is present. The main pulmonary artery is not enlarged. The heart is enlarged, without pericardial effusion. Panlobular emphysematous disease identified with a bilateral upper lobe distribution. Multiple pulmonary cysts detected within the right lung base. Small right-sided pleural effusion with adjacent compressive atelectasis. Round atelectasis is also suspected. Left-sided pleural thickening. The remainder of the left hemithorax is primarily clear. IMPRESSION: No pulmonary embolus. No thoracic aortic dissection. Panlobular emphysematous change with additional chronic pulmonary disease. CHEST RADIOGRAPH CLINICAL HISTORY: SOB . COMPARISON: None available TECHNIQUE: Single portable view of the chest. FINDINGS The cardiomediastinal silhouette is unremarkable. Significant peribronchial thickening is identified bilaterally. Panlobular emphysematous disease is suspected. Asymmetric density within the right mid to lower lung field for which cross- sectional imaging (noncontrast enhanced CT examination of the chest) is suggested when patient is clinically able. IMPRESSION: Peribronchial thickening with panlobular emphysematous disease. No focal infiltrate or effusion. Asymmetric density within the right mid to lower lung field for which cross- sectional imaging (noncontrast enhanced CT examination of the chest) is suggested when patient is clinically able. Review of Systems Constitutional: Constitutional: Reports no additional constitutional complaints Eyes: Eyes: Reports no additional eye complaints ENT: Reports system reviewed and no additional complaints, except as documented Cardiovascular: Cardiovascular: Reports no additional cardiovascular complaints Respiratory: Respiratory: Reports no additional respiratory complaints Gastrointestinal: Gastrointestinal: Reports no additional gastrointestinal complaints Musculoskeletal: Musculoskeletal: Reports no additional musculoskeletal complaints Neurologic: Reports system reviewed and no additional complaints, except as documented Psychiatric: Psychiatric: Reports no additional psychiatric complaints Endocrine: Endocrine: Reports no additional endocrine complaints Hematologic/Lymphatic: Hematologic/Lymphatic: Reports no additional hematologic/lymphatic complaints Allergic/Immunologic: Allergic/Immunologic: Reports no additional allergic/immunologic complaints Exam Const: General: cooperative, healthy appearing and comfortable Orientation/consciousness: oriented to person, oriented to place and oriented to time HENMT: Head: normal to inspection Ears: hearing grossly normal bilaterally Eyes: General: appearance normal, both eyes and all related structures Neck: Neck: normal visual inspection Chest: Chest palpation & inspection: normal inspection of the chest Resp: Effort & Inspection: normal respiratory effort and able to speak in complete sentences Auscultation: no crackles, no rales, no rhonchi, no wheezes and diminished lung sounds Other: No wheezes currently Cardio: Jugular venous distension: no JVD GI: Inspection: normal to inspection Skin: General skin exam: normal color Neuro: General: oriented to person, oriented to place and oriented to time Extrem: General: normal to inspection Psych: Appearance: grossly normal Objective Data Vital Signs Vital Signs: Vital Signs - 24 hr 07/04/24 10:00 07/04/24 10:00 07/04/24 12:00 Temperature Pulse Rate 130 H 130 H 120 H Respiratory Rate 23 H 18 Blood Pressure 144/94 H Pulse Oximetry 95 98 Oxygen Delivery Nasal Cannula Oxygen Flow Rate 3 07/04/24 12:00 07/04/24 12:03 07/04/24 13:59 Temperature 36.8 C Pulse Rate 120 H 129 H 129 H Respiratory Rate 20 20 Blood Pressure 135/85 Pulse Oximetry 99 Oxygen Delivery Oxygen Flow Rate 07/04/24 14:00 07/04/24 14:13 07/04/24 16:00 Temperature 36.4 C Pulse Rate 129 H 129 H 135 H Respiratory Rate 20 20 Blood Pressure 134/94 H Pulse Oximetry 97 Oxygen Delivery Oxygen Flow Rate 07/04/24 16:45 07/04/24 16:45 07/04/24 20:00 Temperature 36.3 C L Pulse Rate 127 H 127 H 125 H Respiratory Rate 20 Blood Pressure 153/96 H Pulse Oximetry 90 98 Oxygen Delivery Nasal Cannula Oxygen Flow Rate 3 07/04/24 20:00 07/04/24 20:00 07/04/24 21:14 Temperature Pulse Rate 121 H 121 H Respiratory Rate Blood Pressure Pulse Oximetry 90 98 Oxygen Delivery Nasal Cannula Nasal Cannula Oxygen Flow Rate 3 3 07/04/24 21:15 07/04/24 21:30 07/04/24 22:00 Temperature Pulse Rate 125 H 121 H 112 H Respiratory Rate 20 20 Blood Pressure Pulse Oximetry Oxygen Delivery Oxygen Flow Rate 07/05/24 00:00 07/05/24 00:00 07/05/24 00:00 Temperature 37.0 C Pulse Rate 123 H 129 H 129 H Respiratory Rate 18 Blood Pressure 137/97 H Pulse Oximetry 92 95 Oxygen Delivery Nasal Cannula Oxygen Flow Rate 3 07/05/24 02:00 07/05/24 02:33 07/05/24 02:46 Temperature Pulse Rate 119 H 126 H 123 H Respiratory Rate 20 20 Blood Pressure Pulse Oximetry Oxygen Delivery Oxygen Flow Rate 07/05/24 04:00 07/05/24 04:00 07/05/24 04:00 Temperature 37.0 C Pulse Rate 135 H 131 H 135 H Respiratory Rate 18 Blood Pressure 134/97 H Pulse Oximetry 96 96 Oxygen Delivery Nasal Cannula Oxygen Flow Rate 3 07/05/24 06:00 07/05/24 08:30 07/05/24 09:17 Temperature 36.4 C L Pulse Rate 133 H 138 H 133 H Respiratory Rate 20 Blood Pressure 148/93 H Pulse Oximetry 97 Oxygen Delivery Oxygen Flow Rate 07/05/24 09:27 07/05/24 09:27 Temperature Pulse Rate 133 H Respiratory Rate 20 Blood Pressure Pulse Oximetry 96 Oxygen Delivery Room Air Oxygen Flow Rate Intake/Output Intake/Output: Intake & Output 07/02/24 07/03/24 07/04/24 07/05/24 23:59 23:59 23:59 23:59 Intake Total 350 3570 510 Output Total 1600 2150 Balance 350 1970 -1640 Meds/Results Medications: Active Medications Generic Name Dose Route Start Last Admin Trade Name Freq PRN Reason Stop Dose Admin Apixaban 5 mg 07/04/24 09:00 07/05/24 09:13 Apixaban 5 Mg Tablet PO 5 mg Q12HR JENNY Administration Aripiprazole 2 mg 07/04/24 09:00 07/05/24 09:13 Aripiprazole 2 Mg Tablet PO 2 mg DAILY JENNY Administration Benzocaine 1 lozenge 07/04/24 09:51 07/04/24 20:36 Benzocaine/Menthol (*Bkc) 18 Ea Lozenge PO 1 lozenge PRN PRN Administration Sore Throat Diltiazem HCl 360 mg 07/04/24 09:00 07/05/24 09:13 Diltiazem Hcl Cd 180 Mg Cap.24hr PO 360 mg QAM JENNY Administration Guaifenesin 1,200 mg 07/04/24 21:00 07/05/24 09:13 Guaifenesin 12 Hr 600 Mg Tabcr PO 1,200 mg Q12HR JENNY Administration Cefepime HCl 2 gm in 50 mls @ 100 mls/hr 07/04/24 06:00 07/05/24 06:27 Maxipime 2 Gm/Ns 50 Ml IVPB Infused Q12H JENNY Infusion Doxycycline Hyclate 100 mg in 100 mls @ 100 mls/hr 07/04/24 02:00 07/05/24 04:05 Vibramycin 100 Mg/Ns 100 Ml IVPB Infused Q12H JENNY Infusion Vancomycin HCl 1,500 mg in 500 mls @ 250 mls/hr 07/05/24 06:00 07/05/24 05:57 Vancomycin 1,500 Mg/Ns 500 Ml IVPB 250 mls/hr Q18H JENNY Administration Diltiazem HCl 100 mg in 100 mls @ 5 mls/hr 07/05/24 08:45 07/05/24 09:17 Cardizem 100 Mg/100 Ml IV CONT 5 mg/hr .Q20H JENYN 5 mls/hr Administration 5 MG/HR Ipratropium [place] 0.5 mg 07/04/24 02:00 07/05/24 09:26 Ipratropium Br 0.02% Inh Soln 0.5 Mg/2.5 Ml Vial INHALATION 0.5 mg Q6HRT JENNY Administration Levalbuterol HCl 1.25 mg 07/04/24 08:00 07/05/24 09:26 Levalbuterol Neb 1.25 Mg/3 Ml INHALATION 1.25 mg Q6HRT JENNY Administration Losartan Potassium 50 mg 07/04/24 09:00 07/05/24 09:13 Losartan Potassium 50 Mg Tablet PO 50 mg DAILY JENNY Administration Methylprednisolone Sodium Succinate 40 mg 07/04/24 12:00 07/05/24 05:58 Methylprednisolone Sod Succ 40 Mg Vial IV PUSH 40 mg Q6HR JENNY Administration Perflutren Lipid Microsphere 0 ml 07/04/24 07:12 Perflutren Lipid Microspheres 1.5 Ml Vial Diluted To 10 Ml Total Volume IV PUSH 07/07/24 07:12 ONCE PRN adequate visualization Protocol Radiology Results: ITS Impressions Chest X-Ray 07/03/24 17:59 IMPRESSION: Peribronchial thickening with panlobular emphysematous disease. No focal infiltrate or effusion. Asymmetric density within the right mid to lower lung field for which cross- sectional imaging (noncontrast enhanced CT examination of the chest) is suggest ed when patient is clinically able. Chest CTA 07/04/24 21:28 IMPRESSION: No pulmonary embolus. No thoracic aortic dissection. Panlobular emphysematous change with additional chronic pulmonary disease. Labs Labs: Laboratory Results - last 24 hr 07/05/24 07/05/24 07/05/24 05:10 05:14 06:06 WBC 9.7 RBC 3.46 L Hgb 10.8 L Hct 34.0 L MCV 98.3 MCH 31.2 MCHC 31.8 L RDW 15.1 H Plt Count 163 MPV 10.8 H Immature Gran % (Auto) 0.5 Neut % (Auto) 94.2 H Lymph % (Auto) 2.5 L [place] % (Auto) 2.7 Eos % (Auto) 0.0 Baso % (Auto) 0.1 L Lymph # (Auto) 0.24 L [place] # (Auto) 0.3 Eos # (Auto) 0.0 Baso # (Auto) 0.0 Abs Immat Gran (auto) 0.05 H Absolute Neuts (auto) 9.2 H Absolute Nucleated RBC 0.000 Nucleated RBC % 0.0 Puncture Site Right radial ABG pH 7.459 H ABG pCO2 39.1 ABG pO2 71.4 L ABG PO2/FiO2 Ratio 2.23 ABG HCO3 27.1 H ABG O2 Saturation 95.2 ABG O2 Content 15.6 L ABG Base Excess 3.1 A-a Gradient 111.0 Oxyhemoglobin 94.0 Carboxyhemoglobin 0.5 Methemoglobin 0.0 Reduced Hemoglobin 5.5 H Total Hemoglobin 11.8 L O2 Delivery Device Nasal cannula O2 Liters/Min 3.0 FiO2 32 Sodium 137 Potassium 4.5 Chloride 102 Carbon Dioxide 28 Anion Gap 7 BUN 31 H Creatinine 1.10 Estim Creat Clear Calc 68 Estimated GFR > 60 Glucose 132 H Calcium 9.1 Phosphorus 3.5 Magnesium 2.2 Total Bilirubin 0.6 AST 18 ALT 17 Alkaline Phosphatase 83 NT-Pro-B Natriuret Pep 4940 H Total Protein 6.0 L Albumin 3.5
--- NOTE | 2024-07-05 11:22 | PM.CNCAR ---
Assessment and Plan Assessment and plan (1) Atrial flutter: Code(s): I48.92 - Unspecified atrial flutter Status: Acute Assessment and Plan: History of atrial flutter managed with rate control and anticoagulation. He now has atrial flutter with rapid ventricular response in the setting of COPD exacerbation. Remains in RVR despite deceiving home dose of diltiazem 360mg p.o. and on diltiazem drip at 5mg/hr Prefer to avoid beta blockers and amiodarone given severe underlying lung disease Will give 1 dose digoxin p.o. now and observe his heart rate response Continue anticoagulation with Eliquis Continue telemetry monitoring Anticipate improvement of heart rate with treatment of COPD exacerbation If unable to control heart rate with medical management can consider LEIDY/CV which would need to take place with anesthesia because of MATTHEW (2) CHF (congestive heart failure): Code(s): I50.9 - Heart failure, unspecified Status: Acute Assessment and Plan: Would resume home dose of furosemide 40mg p.o. daily (3) Elevated troponin: Code(s): R79.89 - Other specified abnormal findings of blood chemistry Status: Acute Assessment and Plan: Troponin mildly elevated and flat in the setting of hypoxia and tachycardia. Unlikely that this is related to ACS. No plan for any ischemic evaluation. (4) Acute exacerbation of chronic obstructive pulmonary disease: Code(s): J44.1 - Chronic obstructive pulmonary disease with (acute) exacerbation Status: Acute Assessment and Plan: Treatment per pulmonology (5) Acute respiratory failure with hypoxia and hypercapnia: Code(s): J96.01 - Acute respiratory failure with hypoxia; J96.02 - Acute respiratory failure with hypercapnia Status: Acute Assessment and Plan: Secondary to above. Improving with treatment of COPD exacerbation History of Present Illness History of Present Illness Consult date/time: 07/05/24 11:22 Requesting physician: Carol Kingsley MD Consult reason: Other (atrial flutter) Reason For Visit: Hypercapneic respiratory failure Narrative: Jose De La Vega is a 64-year-old male with COPD on home oxygen, CHF, bipolar disorder. This is a patient who presents to the hospital with a chief complaint of shortness of breath. He is being treated for acute on chronic COPD exacerbation. Cardiology is consulted for atrial flutter with rapid ventricular response. Patient appears to have a history of atrial fibrillation/flutter as he is on anticoagulation and diltiazem at home. However, patient is a poor historian and unable to tell me much about his cardiac history. He continues to complain of shortness of breath. Review of Systems Review of Systems: All systems reviewed & are unremarkable except as noted in HPI and below PMFSH Past Medical History Medical History (Updated 07/05/24 @ 13:36 by DALLAS Arndt) Continuous tobacco abuse Chronic respiratory failure with hypoxia and hypercapnia On home O2 of 3 L Bipolar disorder CHF (congestive heart failure) COPD (chronic obstructive pulmonary disease) Surgical History Surgical History No significant past surgical history Family History Family History (Updated 07/04/24 @ 08:35 by Chhaya Pearson DO) Other Unknown family medical history Social History Social History (Updated 07/04/24 @ 08:37 by Chhaya Pearson DO) Social History: Code status: Full code (per EMR) Surrogate decision maker: Aura Campos (sister) Smoking packs per day: 1.5 Smoking cigarettes per day: 30.0 Years smoked: 40 Smoking pack-years: 60.00 Smoking status: Current every day smoker Tobacco type: cigarettes Alcohol intake: never Substance use type: marijuana Last use: 07/02/2024 Spiritual care concerns: No Meds Home Medications and Allergies Home Medications ?Medication ?Instructions ?Recorded ?Confirmed ?Type albuterol sulfate 90 mcg/actuation 2 puff inhalation Q4-6H PRN 07/03/24 07/03/24 History aerosol inhaler (Ventolin HFA) Shortness of breath apixaban 5 mg tablet (Eliquis) 5 mg PO BID 07/03/24 07/03/24 History aripiprazole 2 mg tablet 2 mg PO DAILY 07/03/24 07/03/24 History budesonide-formoterol HFA 160 2 puff inhalation Q12H 07/03/24 07/03/24 History mcg-4.5 mcg/actuation aerosol inhaler (Symbicort) diltiazem HCl 360 mg 360 mg PO DAILY 07/03/24 07/03/24 History capsule,extended release 24 hr furosemide 40 mg tablet 40 mg PO DAILY 07/03/24 07/03/24 History losartan 50 mg tablet 50 mg PO DAILY 07/03/24 07/03/24 History mometasone-formoterol HFA 200 2 puff inhalation BID 07/03/24 07/03/24 History mcg-5 mcg/actuation aerosol inhaler (Dulera) umeclidinium 62.5 mcg/actuation 1 inh inhalation ONCE 07/03/24 07/03/24 History blister powder for inhalation (Incruse Ellipta) Allergies Allergy/AdvReac Type Severity Reaction Status Date / Time piroxicam Allergy Unknown Unknown Verified 07/03/24 17:10 Vital Signs Vital Signs - 24 hr 07/04/24 12:00 07/04/24 12:00 07/04/24 12:03 Temperature 36.8 C Pulse Rate 120 H 120 H 129 H Respiratory Rate 18 20 Blood Pressure 135/85 Pulse Oximetry 98 99 Oxygen Delivery Nasal Cannula Oxygen Flow Rate 3 07/04/24 13:59 07/04/24 14:00 07/04/24 14:13 Temperature Pulse Rate 129 H 129 H 129 H Respiratory Rate 20 20 Blood Pressure Pulse Oximetry Oxygen Delivery Oxygen Flow Rate 07/04/24 16:00 07/04/24 16:45 07/04/24 16:45 Temperature 36.4 C Pulse Rate 135 H 127 H 127 H Respiratory Rate 20 Blood Pressure 134/94 H Pulse Oximetry 97 90 Oxygen Delivery Nasal Cannula Oxygen Flow Rate 3 07/04/24 20:00 07/04/24 20:00 07/04/24 20:00 Temperature 36.3 C L Pulse Rate 125 H 121 H 121 H Respiratory Rate 20 Blood Pressure 153/96 H Pulse Oximetry 98 90 Oxygen Delivery Nasal Cannula Oxygen Flow Rate 3 07/04/24 21:14 07/04/24 21:15 07/04/24 21:30 Temperature Pulse Rate 125 H 121 H Respiratory Rate 20 20 Blood Pressure Pulse Oximetry 98 Oxygen Delivery Nasal Cannula Oxygen Flow Rate 3 07/04/24 22:00 07/05/24 00:00 07/05/24 00:00 Temperature 37.0 C Pulse Rate 112 H 123 H 129 H Respiratory Rate 18 Blood Pressure 137/97 H Pulse Oximetry 92 95 Oxygen Delivery Nasal Cannula Oxygen Flow Rate 3 07/05/24 00:00 07/05/24 02:00 07/05/24 02:33 Temperature Pulse Rate 129 H 119 H 126 H Respiratory Rate 20 Blood Pressure Pulse Oximetry Oxygen Delivery Oxygen Flow Rate 07/05/24 02:46 07/05/24 04:00 07/05/24 04:00 Temperature 37.0 C Pulse Rate 123 H 135 H 131 H Respiratory Rate 20 18 Blood Pressure 134/97 H Pulse Oximetry 96 96 Oxygen Delivery Nasal Cannula Oxygen Flow Rate 3 07/05/24 04:00 07/05/24 06:00 07/05/24 08:30 Temperature 36.4 C L Pulse Rate 135 H 133 H 138 H Respiratory Rate 20 Blood Pressure 148/93 H Pulse Oximetry 97 Oxygen Delivery Oxygen Flow Rate 07/05/24 09:17 07/05/24 09:27 07/05/24 09:27 Temperature Pulse Rate 133 H 133 H Respiratory Rate 20 Blood Pressure Pulse Oximetry 96 Oxygen Delivery Room Air Oxygen Flow Rate 07/05/24 09:39 07/05/24 09:45 Temperature Pulse Rate 136 H Respiratory Rate 22 H Blood Pressure Pulse Oximetry 99 Oxygen Delivery Nasal Cannula Oxygen Flow Rate 1 Exam Const: General: comfortable, no acute distress, alert and awake Orientation/consciousness: patient oriented x3 HENMT: Head: normal to inspection Eyes: General: appearance normal, both eyes and all related structures Pupils: Equal, round and reactive pupils present Neck: Neck: normal visual inspection, supple and no JVD Carotids: normal carotid upstroke Resp: Effort & Inspection: normal respiratory effort Auscultation: clear to auscultation bilaterally and diminished lung sounds Cardio: Rate: tachycardic Rhythm: abnormal rhythm regularly irregular Heart sounds: S1 normal heart sound present, S2 normal heart sound present and no murmurs GI: Auscultation: normal bowel sounds Skin: General skin exam: normal color Neuro: General: patient oriented x3 Cranial nerves: Yes Equal, round and reactive pupils present Extrem: General: normal to inspection Psych: Appearance: grossly normal Mental Status: mental status grossly normal Other: Disorganized thinking Results Labs and Meds 07/05/24 05:14 07/05/24 05:14 Lab results: Cardiac Enzymes 07/05/24 Range/Units 05:14 AST 18 (17-59) U/L CBC 07/05/24 Range/Units 05:14 WBC 9.7 (4.5-10.0) K/mm3 RBC 3.46 L (4.6-6.20) M/mm3 Hgb 10.8 L (14.0-18.0) g/dL Hct 34.0 L (42.0-52.0) % Plt Count 163 (150-375) k/mm3 Lymph # (Auto) 0.24 L (0.9-3.2) K/mm3 [place] # (Auto) 0.3 (0.1-0.6) K/mm3 Eos # (Auto) 0.0 (0-0.3) K/mm3 Baso # (Auto) 0.0 (0.0-0.1) K/mm3 Comprehensive Metabolic Panel 07/05/24 Range/Units 05:14 Sodium 137 (137-145) mmol/L Potassium 4.5 (3.4-5.0) mmol/L Chloride 102 (98-107) mmol/L Carbon Dioxide 28 (22-30) mmol/L BUN 31 H (9-20) mg/dL Creatinine 1.10 (0.7-1.3) mg/dL Glucose 132 H (65-110) mg/dL Calcium 9.1 (8.4-10.2) mg/dL AST 18 (17-59) U/L ALT 17 (6-50) U/L Alkaline Phosphatase 83 (38-126) U/L Total Protein 6.0 L (6.3-8.2) g/dL Albumin 3.5 (3.5-5.1) g/dL Intake and Output 07/04/24 07/05/24 07/05/24 23:59 07:59 15:59 Intake Total 710 150 360 Output Total 650 2150 Balance 60 -2000 360 Intake: IV 50 150 Cefepime 2 gm/Ns 50 ml 2 gm In 50 50 50 ml @ 100 mls/hr IVPB Q12H [facility] Rx#:[id number] Doxycycline 100 mg/Ns 100 ml 100 100 mg In 100 ml @ 100 mls/hr IVPB Q12H [facility] Rx#:[id number] Oral 660 360 Output: Urine 650 2150 Patient Weight 07/05/24 23:59 Weight 98 kg
[2024-07-05] MEDS: DIGOXIN INJ 250 MCG/ML 2 ML AMP (*BKC) IV PUSH (14:02)
[2024-07-05] MEDS: predniSONE 20 MG TABLET 40 MG PO (14:02)
[2024-07-05] MEDS: DOXYCYCLINE HYCLATE 100 MG TABLET PO ×2 (14:03→20:36)
[2024-07-05] MEDS: ALPRAZolam (*CRX) 0.5 MG TABLET PO (14:09)
[2024-07-05] MEDS: LINEZOLID 600 MG TABLET PO (20:36)
[2024-07-06] VITALS (28 sets, daily range): BP systolic 105–137; BP diastolic 64–93; PULSE 83–120; RESP 16–26; TEMP 35.5–36.9; O2SAT 91–98
[2024-07-06] MEDS: dilTIAZem 100 MG/100 ML 100 MG/100 ML BAG IV CONT ×3 (00:36→08:46)
[2024-07-06] MEDS: ALPRAZolam (*CRX) 0.5 MG TABLET PO ×3 (00:37→20:52)
[2024-07-06] MEDS: BENZOCAINE/MENTHOL (*BKC) 18 EA LOZENGE 1 LOZENGE PO (00:38)
[2024-07-06 05:08] LABS: Alpha-1-Antitrypsin, QN 166 mg/dL (83-199)
[2024-07-06] MEDS: FUROSEMIDE 40 MG TABLET PO (08:43)
[2024-07-06] MEDS: guaiFENesin 12 HR 600 MG TABCR 1200 MG PO ×2 (08:44→20:52)
[2024-07-06] MEDS: dilTIAZem HCL CD 180 MG CAP.24HR 360 MG PO (08:44)
[2024-07-06] MEDS: DOXYCYCLINE HYCLATE 100 MG TABLET PO ×2 (08:45→20:52)
[2024-07-06] MEDS: LOSARTAN POTASSIUM 50 MG TABLET PO (08:45)
[2024-07-06] MEDS: predniSONE 20 MG TABLET 40 MG PO (08:45)
[2024-07-06] MEDS: APIXABAN 5 MG TABLET PO ×2 (08:45→20:52)
[2024-07-06] MEDS: ARIPiprazole 2 MG TABLET PO (08:45)
[2024-07-06] MEDS: CEFEPIME 2 GM/NS 50 ML 2 GM/50 ML BAG IVPB ×2 (08:46→20:55)
[2024-07-06] MEDS: LINEZOLID 600 MG TABLET PO ×2 (08:50→20:52)
[2024-07-06] MEDS: LEVALBUTEROL NEB 1.25 MG/3 ML INHALATION (08:55)
[2024-07-06] MEDS: IPRATROPIUM BR 0.02% INH SOLN 0.5 MG/2.5 ML VIAL INHALATION (08:55)
--- NOTE | 2024-07-06 10:05 | P.PNPL_ITS ---
Progress Note: A&P Assessment and Plan (1) Acute exacerbation of chronic obstructive pulmonary disease: Code(s): J44.1 - Chronic obstructive pulmonary disease with (acute) exacerbation Status: Acute Assessment and Plan: Patient carries a diagnosis of COPD. Seventy-four pack years tobacco use, currently smoking 4 inhalations of marijuana a day. Chronic hypoxemic respiratory failure prescribed 3 L nasal cannula 24-7 approximately 1 week ago. 07/04/24 Patient presents with 7 days worsening shortness of breath, hypoxemia, increased phlegm production which is now dark colored, urine tox screen positive for THC and cocaine. He was recently discharged from the hospital and went home and did smoke marijuana which may have been laced with cocaine. He presents with hypoxemic and hypercarbic respiratory failure with pH 7.27/61/96. Plan: I will continue Solu-Medrol 40 mg IV q.6 hours. I will Continue his levalbuterol and ipratropium nebulizers at q.6 hours. Patient states he has difficulty expectorating and I will add guaifenesin 1200 mg p.o. b.i.d. I will order CT angiogram of the chest to assess for pulmonary embolism and assess for bullous emphysema and pneumonia. Blood cultures are positive and I continue cefepime and Doxycycline, both day 2 and vancomycin, day 1. I will send a respiratory pathogen panel looking for additional infectious etiologies. I also and urine pneumococcus, urine Legionella and mycoplasma IgM titers. Goal saturation 90-94%. Currently the patient is on 3 L with saturations 97%, wean accordingly. Later in the day patient had a CTA scan of the chest which showed no pulmonary embolism, severe apical predominant panlobular emphysema, small right pleural effusion, no focal consolidations. 07/05/24: Patient tells me he is breathing normal. He has a small cough with a little bit of dark phlegm production. Currently patient is on 3 L with saturations 96%. White blood cell count 9.7, creatinine 1.10, he is afebrile. patient was on 3 L nasal cannula last night and blood gas this morning was 7.46/39/71. He was +1.9 L yesterday and since admission he is positive 320 mL. His weight today is 98 with an admission weight of 99.1. BNP has increased from 4130 on 07/03/2024 2 4940 today. His heart rate is 132 and has been started on a IV Dilt drip. Plan: I will change his Solu-Medrol to prednisone 40 mg p.o. q.day, day 3 of steroids. Continue levalbuterol and ipratropium nebulizers q.6 hours. Continue guaifenesin 1200 mg p.o. b.i.d.. Patient has no evidence of chronic hypercarbic respiratory failure on this morning's blood gas. Patient is on cefepime day 3, Receive 1 dose of azithromycin, doxycycline day 2 and vancomycin day 2. Follow blood cultures. Of note, he has no focal infiltrates on his CT scan suggestive of pneumonia. 07/06/2023. Overall the patient tells me he is breathing normal. He says his cough and phlegm production or at his baseline. He has no hemoptysis. He is afebrile. When I enter the room the patient was on 3 L nasal cannula saturations 100%. I placed him to room air and his saturations were 95%. Blood culture grew Staph epidermidis. Patient diuresed 186 mL yesterday cumulative he is 63 mL positive since admission. His weight today is 98.3 with admission weight of 99.1. Remains in a flutter heart rate 100 to 115. He pulled his IV out this morning and per the bedside nurse to threaten to nurse and security was called. He tells me this was a misunderstanding and is pleasant with me. Plan: Patient continues to improve. He is on prednisone 40 mg a day day 4 of 5. I will changes ipratropium and levalbuterol nebulizers to trelegy 100. I will continue guaifenesin 1200 mg p.o. b.i.d.. Patient is on cefepime day 4, for his MRSA positive nasal swab and possible pneumonia his vancomycin was changed to linezolid yesterday and has received 4 days of appropriate coverage. He is on day 3 of doxycycline and received 1 day of azithromycin. Assuming Staph epidermidis on 07/03/2024 is a contaminant and repeat blood cultures remain negative would recommend total of 7 days of antibiotics. Patient is on Lasix 40 mg p.o. q.day. Cardiology and hospitalist managing a flutter. If patient remains clinically stable can be discharged over the weekend on these pulmonary medications: Cefdinir 300 mg p.o. b.i.d. last dose evening of 07/09 linezolid 600 mg p.o. b.i.d. last dose evening of 07/09 doxycycline 100 mg p.o. b.i.d. last dose evening of 07/09 Guaifenesin 1200 mg p.o. b.i.d. p.r.n. cough.Incruse Ellipta 62.5 at 1 puff q.day He has 2 home ICS/LABA inhalers on his home medicine list: Symbicort 160-4.5 at 2 puffs q.12 and Dulera 200-5 at 2 puffs b.i.d. he should only be discharged on 1 of these inhalers. Oxygen at rest and with ambulation per formal home O2 assessment on the day of discharge. Oxygen 3 L at night. Diuretics per Cardiology and hospitalist team. The patient tells me he is a follow-up appointment with his associate marketing manager on 07/17/2024 and I told him he should continue with this follow-up appointment. Inpatient consult services will resume on 07/09/2024, call with questions. Discussed with Dr. Conley. (2) Acute respiratory failure with hypoxia and hypercapnia: Code(s): J96.01 - Acute respiratory failure with hypoxia; J96.02 - Acute respiratory failure with hypercapnia Status: Acute Assessment and Plan: Patient tells me he wears 3 L nasal cannula 20/12. He presents with hypoxemic and hypercarbic respiratory failure with pH 7.27/61/96. The patient tells me he used BiPAP previously up until the last 6 months which she discontinue this. He tells me the BiPAP last night was very uncomfortable and he will not wear it tonight. Plan: Will leave the patient off BiPAP tonight and check an ABG in the morning to reassess his hypercarbic respiratory failure. 07/05/24: patient was on 3 L nasal cannula last night and blood gas this morning was 7.46/39/71. Patient has no evidence of chronic hypercarbic respiratory fail ure on this morning's blood gas. Plan: I will perform overnight oximetry on 3 L nasal cannula tonight. 07/06/24: Patient had an overnight oximetry on 3 L with recording duration 3 hours and 5 minutes. Average saturation 97%. Low saturation 90%. Time with saturation less than or equal to 88% was 0 minutes. Oxygen desaturation index 1.7. Plan: Patient has supplemental oxygen provided by his outpatient associate marketing manager at 3 L at night which is adequate. Subjective Date/time seen: 07/06/24 10:05 Interval history: 07/04/2024: This is a new pulmonary consult for COPD 64-year-old with a history of CHF, COPD, obstructive sleep apnea, bipolar. The patient tells me he is diagnosed with COPD 10 years ago and has been on haler since then. Last week he was admitted to [facility] and was started on 3 L oxygen 24-7. patient smoked tobacco from age [age] at 2 packs per day for total of 74 pack years. For the last 6 months patient has smoked 4 inhalations of marijuana a day. Patient states he was diagnosed with obstructive sleep apnea 10 years ago and he was placed on BiPAP. He wore BiPAP until approximately 6 months ago when he had lost weight and they decrease the pressures and he lost more weight and he decided to discontinue this himself. On 07/03/2024 the patient presented with shortness of breath. EMS noted saturations 84% on room air and he was placed on CPAP. In the emergency department his blood pressure was 129/94, heart rate 110, respirations 23, saturations were 98% on BiPAP. He had take expiratory wheezes bilaterally. His white blood cell count was 8.8, his creatinine was 1.37, his BNP was 4130. His COVID, influenza and RSV RT PCR studies were negative. His urine tox screen was positive for cocaine and cannabis. His initial blood gas was 7.27, 61, 96 on BiPAP. patient was treated with Solu-Medrol, cefepime, azithromycin, and bronchodilators. His MRSA swab is positive. 07/04/2024 patient was transferred out of the ICU. ABG on BiPAP 14/01 rate of 24 was 7.34/45/77. Blood cultures were Gram-positive cocci and he was started on vancomycin. Currently the patient tells me he is better than when he arrived. His phlegm is the same and dark. His wheezing is better. Patient tells me he will not be able to wear the BiPAP tonight. Later in the day patient had a CTA scan of the chest which showed no pulmonary embolism, severe apical predominant panlobular emphysema, small right pleural effusion, no focal consolidations. 07/05/24: Patient tells me he is breathing normal. He has a small cough with a little bit of dark phlegm production. Currently patient is on 3 L with saturations 96%. White blood cell count 9.7, creatinine 1.10, he is afebrile. patient was on 3 L nasal cannula last night and blood gas this morning was 7.46/39/71. He was +1.9 L yesterday and since admission he is positive 320 mL. His weight today is 98 with an admission weight of 99.1. BNP has increased from 4130 on 07/03/2024 2 4940 today. His heart rate is 132 and has been started on a IV Dilt drip. Later in the day given p.o. digoxin by Cardiology. 07/06/2023. Overall the patient tells me he is breathing normal. He says his cough and phlegm production or at his baseline. He has no hemoptysis. He is afebrile. When I enter the room the patient was on 3 L nasal cannula saturations 100%. I placed him to room air and his saturations were 95%. Patient had an overnight oximetry on 3 L with recording duration 3 hours and 5 minutes. Average saturation 97%. Low saturation 90%. Time with saturation less than or equal to 88% was 0 minutes. Oxygen desaturation index 1.7. Patient diuresed 186 mL yesterday cumulative he is 63 mL positive since admission. His weight today is 98.3 with admission weight of 99.1. Remains in a flutter heart rate 100 to 115. He pulled his IV out this morning and per the bedside nurse to threaten to nurse and security was called. He tells me this was a misunderstanding and is pleasant with me. DATA: 07/04/24: EXAMINATION: CTA chest PE protocol DATE: 07/04/2024 21:31 PATIENT ACCOUNTS MANAGER INDICATION: Shortness of breath and COPD. Pulmonary embolus suspected clinically TECHNIQUE: Computed tomographic angiography (CTA) of the chest was performed with 100 mL Omnipaque-350 intravenous contrast. The dose-length product was 755.71 mGy-cm. Maximum intensity projection 3D-reconstructions of the aorta and other arteries were constructed by the technologist on a separate workstation. COMPARISON: Reference is made with a plain view of the chest performed approximately 24 hours earlier FINDINGS: No filling defect within the main or proximal pulmonary arteries. The thoracic aorta is nonaneurysmal and no dissection is present. The main pulmonary artery is not enlarged. The heart is enlarged, without pericardial effusion. Panlobular emphysematous disease identified with a bilateral upper lobe distribution. Multiple pulmonary cysts detected within the right lung base. Small right-sided pleural effusion with adjacent compressive atelectasis. Round atelectasis is also suspected. Left-sided pleural thickening. The remainder of the left hemithorax is primarily clear. IMPRESSION: No pulmonary embolus. No thoracic aortic dissection. Panlobular emphysematous change with additional chronic pulmonary disease. CHEST RADIOGRAPH CLINICAL HISTORY: SOB . COMPARISON: None available TECHNIQUE: Single portable view of the chest. FINDINGS The cardiomediastinal silhouette is unremarkable. Significant peribronchial thickening is identified bilaterally. Panlobular emphysematous disease is suspected. Asymmetric density within the right mid to lower lung field for which cross- sectional imaging (noncontrast enhanced CT examination of the chest) is suggest ed when patient is clinically able. IMPRESSION: Peribronchial thickening with panlobular emphysematous disease. No focal infiltrate or effusion. Asymmetric density within the right mid to lower lung field for which cross- sectional imaging (noncontrast enhanced CT examination of the chest) is suggested when patient is clinically able. Review of Systems Constitutional: Constitutional: Reports no additional constitutional complaints Eyes: Eyes: Reports no additional eye complaints ENT: Reports system reviewed and no additional complaints, except as documented Cardiovascular: Cardiovascular: Reports no additional cardiovascular complaints Respiratory: Respiratory: Reports no additional respiratory complaints Gastrointestinal: Gastrointestinal: Reports no additional gastrointestinal complaints Musculoskeletal: Musculoskeletal: Reports no additional musculoskeletal complaints Neurologic: Reports system reviewed and no additional complaints, except as documented Psychiatric: Psychiatric: Reports no additional psychiatric complaints Endocrine: Endocrine: Reports no additional endocrine complaints Hematologic/Lymphatic: Hematologic/Lymphatic: Reports no additional hematologic/lymphatic complaints Allergic/Immunologic: Allergic/Immunologic: Reports no additional allergic/immunologic complaints Exam Const: General: cooperative, healthy appearing and comfortable Orientation/consciousness: oriented to person, oriented to place and oriented to time HENMT: Head: normal to inspection Ears: hearing grossly normal bilaterally Eyes: General: appearance normal, both eyes and all related structures Neck: Neck: normal visual inspection Chest: Chest palpation & inspection: normal inspection of the chest Resp: Effort & Inspection: normal respiratory effort and able to speak in complete sentences Auscultation: no crackles, no rales, no rhonchi, no wheezes and diminished lung sounds Other: No wheezes currently Cardio: Jugular venous distension: no JVD GI: Inspection: normal to inspection Skin: General skin exam: normal color Neuro: General: oriented to person, oriented to place and oriented to time Extrem: General: normal to inspection Psych: Appearance: grossly normal Objective Data Vital Signs Vital Signs: Vital Signs - 24 hr 07/05/24 12:00 07/05/24 12:26 07/05/24 14:00 Temperature 36.5 C Pulse Rate 128 H 138 H 117 H Respiratory Rate 22 H Blood Pressure 124/92 H Pulse Oximetry 98 Oxygen Delivery Oxygen Flow Rate 07/05/24 14:02 07/05/24 14:18 07/05/24 14:31 Temperature Pulse Rate 140 H 109 H 130 H Respiratory Rate 20 20 Blood Pressure Pulse Oximetry Oxygen Delivery Oxygen Flow Rate 07/05/24 16:00 07/05/24 16:00 07/05/24 18:00 Temperature 36.6 C Pulse Rate 124 H 133 H 127 H Respiratory Rate 20 Blood Pressure 136/81 Pulse Oximetry 96 Oxygen Delivery Oxygen Flow Rate 07/05/24 19:56 07/05/24 20:00 07/05/24 20:20 Temperature 36.5 C Pulse Rate 118 H 118 H 131 H Respiratory Rate 19 20 Blood Pressure 128/98 H 128/98 H Pulse Oximetry 95 98 Oxygen Delivery Nasal Cannula Oxygen Flow Rate 1 07/05/24 20:20 07/05/24 21:06 07/05/24 21:17 Temperature Pulse Rate 106 H 130 H 131 H Respiratory Rate 20 20 Blood Pressure Pulse Oximetry Oxygen Delivery Oxygen Flow Rate 07/05/24 21:26 07/05/24 22:00 07/05/24 22:00 Temperature Pulse Rate 106 H 106 H Respiratory Rate Blood Pressure 136/90 Pulse Oximetry 98 Oxygen Delivery Nasal Cannula Oxygen Flow Rate 1 07/05/24 22:59 07/05/24 23:40 07/05/24 23:56 Temperature 37.0 C Pulse Rate 106 H 98 106 H Respiratory Rate 18 18 19 Blood Pressure 136/90 136/90 Pulse Oximetry 95 92 95 Oxygen Delivery Nasal Cannula Oxygen Flow Rate 1 07/06/24 00:00 07/06/24 00:00 07/06/24 00:35 Temperature Pulse Rate 109 H 106 H 107 H Respiratory Rate Blood Pressure 134/82 134/82 Pulse Oximetry Oxygen Delivery Oxygen Flow Rate 07/06/24 00:36 07/06/24 01:58 07/06/24 01:58 Temperature Pulse Rate 107 H 93 91 Respiratory Rate 17 Blood Pressure 134/82 132/80 Pulse Oximetry 96 Oxygen Delivery Oxygen Flow Rate 07/06/24 02:00 07/06/24 03:45 07/06/24 04:00 Temperature 36.4 C L Pulse Rate 90 95 105 H Respiratory Rate 19 18 Blood Pressure 132/80 125/76 Pulse Oximetry 93 98 Oxygen Delivery Nasal Cannula Oxygen Flow Rate 1 07/06/24 04:00 07/06/24 04:00 07/06/24 05:57 Temperature 36.9 C Pulse Rate 108 H 112 H 93 Respiratory Rate 19 Blood Pressure 125/76 125/75 Pulse Oximetry 97 Oxygen Delivery Oxygen Flow Rate 07/06/24 06:00 07/06/24 06:45 07/06/24 07:57 Temperature 36.6 C Pulse Rate 104 H 110 H 113 H Respiratory Rate 20 Blood Pressure 132/66 Pulse Oximetry 98 Oxygen Delivery Oxygen Flow Rate 07/06/24 08:18 07/06/24 08:46 07/06/24 08:46 Temperature Pulse Rate 110 H 119 H 119 H Respiratory Rate Blood Pressure Pulse Oximetry Oxygen Delivery Oxygen Flow Rate 07/06/24 08:56 07/06/24 08:56 07/06/24 09:13 Temperature Pulse Rate 120 H 120 H 110 H Respiratory Rate 26 H 26 H 20 Blood Pressure Pulse Oximetry 95 Oxygen Delivery Room Air Oxygen Flow Rate Intake/Output Intake/Output: Intake & Output 07/03/24 07/04/24 07/05/24 07/06/24 23:59 23:59 23:59 23:59 Intake Total 350 3570 1963.6 646.0 Output Total 1600 2150 2100 Balance 350 1970 -186.4 -1454.0 Meds/Results Medications: Active Medications Generic Name Dose Route Start Last Admin Trade Name Freq PRN Reason Stop Dose Admin Alprazolam 0.5 mg 07/05/24 13:28 07/06/24 00:37 Alprazolam (*Crx) 0.5 Mg Tablet PO 0.5 mg TID PRN Administration Anxiety Apixaban 5 mg 07/04/24 09:00 07/06/24 08:45 Apixaban 5 Mg Tablet PO 5 mg Q12HR JENNY Administration Aripiprazole 2 mg 07/04/24 09:00 07/06/24 08:45 Aripiprazole 2 Mg Tablet PO 2 mg DAILY JENNY Administration Benzocaine 1 lozenge 07/04/24 09:51 07/06/24 00:38 Benzocaine/Menthol (*Bkc) 18 Ea Lozenge PO 1 lozenge PRN PRN Administration Sore Throat Diltiazem HCl 360 mg 07/04/24 09:00 07/06/24 08:44 Diltiazem Hcl Cd 180 Mg Cap.24hr PO 360 mg QAM JENNY Administration Doxycycline Hyclate 100 mg 07/05/24 14:00 07/06/24 08:45 Doxycycline Hyclate 100 Mg Tablet PO 07/10/24 23:59 100 mg Q12HR JENNY Administration Fluticasone/Umeclidinium/Vilanterol 1 puff 07/06/24 10:05 Fluticasone/Umeclidin/Vilanter 100-62.5-25 Mcg Ellipta INHALATION DAILYRT JENNY Furosemide 40 mg 07/06/24 09:00 07/06/24 08:43 Furosemide 40 Mg Tablet PO 40 mg DAILY JENNY Administration Guaifenesin 1,200 mg 07/04/24 21:00 07/06/24 08:44 Guaifenesin 12 Hr 600 Mg Tabcr PO 1,200 mg Q12HR JENNY Administration Diltiazem HCl 100 mg in 100 mls @ 5 mls/hr 07/05/24 08:45 07/06/24 08:46 Cardizem 100 Mg/100 Ml IV CONT 5 mg/hr .Q20H JENNY 5 mls/hr Administration 5 MG/HR Cefepime HCl 2 gm in 50 mls @ 100 mls/hr 07/05/24 21:00 07/06/24 08:46 Maxipime 2 Gm/Ns 50 Ml IVPB 100 mls/hr Q12H JENNY Administration Linezolid 600 mg 07/05/24 21:00 07/06/24 08:50 Linezolid 600 Mg Tablet PO 07/10/24 23:59 600 mg Q12HR JENNY Administration Losartan Potassium 50 mg 07/04/24 09:00 07/06/24 08:45 Losartan Potassium 50 Mg Tablet PO 50 mg DAILY JENNY Administration Perflutren Lipid Microsphere 0 ml 07/04/24 07:12 Perflutren Lipid Microspheres 1.5 Ml Vial Diluted To 10 Ml Total Volume IV PUSH 07/07/24 07:12 ONCE PRN adequate visualization Protocol Prednisone 40 mg 07/05/24 09:50 07/06/24 08:45 Prednisone 20 Mg Tablet PO 40 mg DAILY@0800 JENNY Administration Radiology Results: ITS Impressions Chest X-Ray 07/03/24 17:59 IMPRESSION: Peribronchial thickening with panlobular emphysematous disease. No focal infiltrate or effusion. Asymmetric density within the right mid to lower lung field for which cross- sectional imaging (noncontrast enhanced CT examination of the chest) is suggested when patient is clinically able. Chest CTA 07/04/24 21:28 IMPRESSION: No pulmonary embolus. No thoracic aortic dissection. Panlobular emphysematous change with additional chronic pulmonary disease. Labs Labs: Laboratory Results - last 24 hr 07/05/24 05:15 [id number]
--- NOTE | 2024-07-06 11:10 | P.PNCA_ITS ---
Progress Note: A&P Assessment and Plan (1) Atrial flutter: Code(s): I48.92 - Unspecified atrial flutter Status: Acute Assessment and Plan: History of atrial flutter managed with rate control and anticoagulation. He now has atrial flutter with rapid ventricular response in the setting of COPD exacerbation. * Heart rate improved with addition of digoxin and is now well controlled * Prefer to avoid beta blockers and amiodarone given severe underlying lung disease * Continue anticoagulation with Eliquis * Continue telemetry monitoring * Anticipate improvement of heart rate with treatment of COPD exacerbation * If unable to control heart rate with medical management can consider LEIDY/CV which would need to take place with anesthesia because of MATTHEW * He will require a digoxin level in one week as outpatient Cardiology will follow along on an as needed basis please call with any questions. (2) CHF (congestive heart failure): Code(s): I50.9 - Heart failure, unspecified Status: Acute Assessment and Plan: Would resume home dose of furosemide 40mg p.o. daily (3) Elevated troponin: Code(s): R79.89 - Other specified abnormal findings of blood chemistry Status: Acute Assessment and Plan: Troponin mildly elevated and flat in the setting of hypoxia and tachycardia. Unlikely that this is related to ACS. No plan for any ischemic evaluation. (4) Acute exacerbation of chronic obstructive pulmonary disease: Code(s): J44.1 - Chronic obstructive pulmonary disease with (acute) exacerbation Status: Acute Assessment and Plan: Treatment per pulmonology (5) Acute respiratory failure with hypoxia and hypercapnia: Code(s): J96.01 - Acute respiratory failure with hypoxia; J96.02 - Acute respiratory wilfredo lure with hypercapnia Status: Acute Assessment and Plan: Secondary to above. Improving with treatment of COPD exacerbation Subjective Date/time seen: 07/06/24 11:10 Interval history: Cardiology follow up for atrial flutter He responded well to digoxin and is now rate controlled Review of Systems Review of Systems: All systems reviewed & are unremarkable except as noted in HPI and below Exam Const: General: comfortable and no acute distress HENMT: Head: normal to inspection Eyes: General: appearance normal, both eyes and all related structures Pupils: Equal, round and reactive pupils present Neck: Neck: normal visual inspection, supple and no JVD Carotids: normal carotid upstroke Resp: Effort & Inspection: normal respiratory effort Auscultation: clear to auscultation bilaterally and diminished lung sounds Cardio: Rate: regular rate Rhythm: abnormal rhythm regularly irregular Heart sounds: S1 normal heart sound present, S2 normal heart sound present and no murmurs GI: Auscultation: normal bowel sounds Skin: General skin exam: normal color Neuro: General: patient oriented x3 Cranial nerves: Yes Equal, round and reactive pupils present Extrem: General: normal to inspection Psych: Appearance: grossly normal Mental Status: mental status grossly normal Other: Disorganized thinking Objective Data Vital Signs Vital Signs: Vital Signs - 24 hr 07/05/24 12:00 07/05/24 12:26 07/05/24 14:00 Temperature 36.5 C Pulse Rate 128 H 138 H 117 H Respiratory Rate 22 H Blood Pressure 124/92 H Pulse Oximetry 98 Oxygen Delivery Oxygen Flow Rate 07/05/24 14:02 07/05/24 14:18 07/05/24 14:31 Temperature Pulse Rate 140 H 109 H 130 H Respiratory Rate 20 20 Blood Pressure Pulse Oximetry Oxygen Delivery Oxygen Flow Rate 07/05/24 16:00 07/05/24 16:00 07/05/24 18:00 Temperature 36.6 C Pulse Rate 124 H 133 H 127 H Respiratory Rate 20 Blood Pressure 136/81 Pulse Oximetry 96 Oxygen Delivery Oxygen Flow Rate 07/05/24 19:56 07/05/24 20:00 07/05/24 20:20 Temperature 36.5 C Pulse Rate 118 H 118 H 131 H Respiratory Rate 19 20 Blood Pressure 128/98 H 128/98 H Pulse Oximetry 95 98 Oxygen Delivery Nasal Cannula Oxygen Flow Rate 1 07/05/24 20:20 07/05/24 21:06 07/05/24 21:17 Temperature Pulse Rate 106 H 130 H 131 H Respiratory Rate 20 20 Blood Pressure Pulse Oximetry Oxygen Delivery Oxygen Flow Rate 07/05/24 21:26 07/05/24 22:00 07/05/24 22:00 Temperature Pulse Rate 106 H 106 H Respiratory Rate Blood Pressure 136/90 Pulse Oximetry 98 Oxygen Delivery Nasal Cannula Oxygen Flow Rate 1 07/05/24 22:59 07/05/24 23:40 07/05/24 23:56 Temperature 37.0 C Pulse Rate 106 H 98 106 H Respiratory Rate 18 18 19 Blood Pressure 136/90 136/90 Pulse Oximetry 95 92 95 Oxygen Delivery Nasal Cannula Oxygen Flow Rate 1 07/06/24 00:00 07/06/24 00:00 07/06/24 00:35 Temperature Pulse Rate 109 H 106 H 107 H Respiratory Rate Blood Pressure 134/82 134/82 Pulse Oximetry Oxygen Delivery Oxygen Flow Rate 07/06/24 00:36 07/06/24 01:58 07/06/24 01:58 Temperature Pulse Rate 107 H 93 91 Respiratory Rate 17 Blood Pressure 134/82 132/80 Pulse Oximetry 96 Oxygen Delivery Oxygen Flow Rate 07/06/24 02:00 07/06/24 03:45 07/06/24 04:00 Temperature 36.4 C L Pulse Rate 90 95 105 H Respiratory Rate 19 18 Blood Pressure 132/80 125/76 Pulse Oximetry 93 98 Oxygen Delivery Nasal Cannula Oxygen Flow Rate 1 07/06/24 04:00 07/06/24 04:00 07/06/24 05:57 Temperature 36.9 C Pulse Rate 108 H 112 H 93 Respiratory Rate 19 Blood Pressure 125/76 125/75 Pulse Oximetry 97 Oxygen Delivery Oxygen Flow Rate 07/06/24 06:00 07/06/24 06:45 07/06/24 07:57 Temperature 36.6 C Pulse Rate 104 H 110 H 113 H Respiratory Rate 20 Blood Pressure 132/66 Pulse Oximetry 98 Oxygen Delivery Oxygen Flow Rate 07/06/24 08:18 07/06/24 08:46 07/06/24 08:46 Temperature Pulse Rate 110 H 119 H 119 H Respiratory Rate Blood Pressure Pulse Oximetry Oxygen Delivery Oxygen Flow Rate 07/06/24 08:56 07/06/24 08:56 07/06/24 09:13 Temperature Pulse Rate 120 H 120 H 110 H Respiratory Rate 26 H 26 H 20 Blood Pressure Pulse Oximetry 95 Oxygen Delivery Room Air Oxygen Flow Rate 07/06/24 10:00 Temperature 36.4 C Pulse Rate 119 H Respiratory Rate 20 Blood Pressure 105/71 Pulse Oximetry 91 Oxygen Delivery Oxygen Flow Rate Intake/Output Intake/Output: Intake & Output 07/03/24 07/04/24 07/05/24 07/06/24 23:59 23:59 23:59 23:59 Intake Total 350 3570 1963.6 646.0 Output Total 1600 2150 2100 Balance 350 1970 -186.4 -1454.0 Meds/Results Medications: Active Medications Generic Name Dose Route Start Last Admin Trade Name Freq PRN Reason Stop Dose Admin Alprazolam 0.5 mg 07/05/24 13:28 07/06/24 00:37 Alprazolam (*Crx) 0.5 Mg Tablet PO 0.5 mg TID PRN Administration Anxiety Apixaban 5 mg 07/04/24 09:00 07/06/24 08:45 Apixaban 5 Mg Tablet PO 5 mg Q12HR JENNY Administration Aripiprazole 2 mg 07/04/24 09:00 07/06/24 08:45 Aripiprazole 2 Mg Tablet PO 2 mg DAILY JENNY Administration Benzocaine 1 lozenge 07/04/24 09:51 07/06/24 00:38 Benzocaine/Menthol (*Bkc) 18 Ea Lozenge PO 1 lozenge PRN PRN Administration Sore Throat Digoxin 125 mcg 07/06/24 11:05 Digoxin Tab 125 Mcg Tablet PO QAM JENNY Diltiazem HCl 360 mg 07/04/24 09:00 07/06/24 08:44 Diltiazem Hcl Cd 180 Mg Cap.24hr PO 360 mg QAM JENNY Administration Doxycycline Hyclate 100 mg 07/05/24 14:00 07/06/24 08:45 Doxycycline Hyclate 100 Mg Tablet PO 07/10/24 23:59 100 mg Q12HR JENNY Administration Fluticasone/Umeclidinium/Vilanterol 1 puff 07/06/24 10:05 Fluticasone/Umeclidin/Vilanter 100-62.5-25 Mcg Ellipta INHALATION DAILYRT JENNY Furosemide 40 mg 07/06/24 09:00 07/06/24 08:43 Furosemide 40 Mg Tablet PO 40 mg DAILY JENNY Administration Guaifenesin 1,200 mg 07/04/24 21:00 07/06/24 08:44 Guaifenesin 12 Hr 600 Mg Tabcr PO 1,200 mg Q12HR JENNY Administration Diltiazem HCl 100 mg in 100 mls @ 5 mls/hr 07/05/24 08:45 07/06/24 08:46 Cardizem 100 Mg/100 Ml IV CONT 5 mg/hr .Q20H JENNY 5 mls/hr Administration 5 MG/HR Cefepime HCl 2 gm in 50 mls @ 100 mls/hr 07/05/24 21:00 07/06/24 08:46 Maxipime 2 Gm/Ns 50 Ml IVPB 100 mls/hr Q12H JENNY Administration Linezolid 600 mg 07/05/24 21:00 07/06/24 08:50 Linezolid 600 Mg Tablet PO 07/10/24 23:59 600 mg Q12HR JENNY Administration Losartan Potassium 50 mg 07/04/24 09:00 07/06/24 08:45 Losartan Potassium 50 Mg Tablet PO 50 mg DAILY JENNY Administration Perflutren Lipid Microsphere 0 ml 07/04/24 07:12 Perflutren Lipid Microspheres 1.5 Ml Vial Diluted To 10 Ml Total Volume IV PUSH 07/07/24 07:12 ONCE PRN adequate visualization Protocol Prednisone 40 mg 07/05/24 09:50 07/06/24 08:45 Prednisone 20 Mg Tablet PO 07/07/24 13:00 40 mg DAILY@0800 JENNY Administration Radiology Results: ITS Impressions Chest X-Ray 07/03/24 17:59 IMPRESSION: Peribronchial thickening with panlobular emphysematous disease. No focal infiltrate or effusion. Asymmetric density within the right mid to lower lung field for which cross- sectional imaging (noncontrast enhanced CT examination of the chest) is suggested when patient is clinically able. Chest CTA 07/04/24 21:28 IMPRESSION: No pulmonary embolus. No thoracic aortic dissection. Panlobular emphysematous change with additional chronic pulmonary disease. Labs Labs: Laboratory Results - last 24 hr 07/05/24 05:15 [id number] Quality VTE Prophylaxis VTE prophylaxis: pharmacologic ordered (Resume home Eliquis)
--- NOTE | 2024-07-06 11:36 | P.PNIM_ITS ---
Progress Note: A&P Assessment and Plan (1) CHF exacerbation: Qualifiers: Heart failure type: unspecified Qualified Code(s): I50.9 - Heart failure, unspecified Code(s): I50.9 - Heart failure, unspecified Status: Acute Assessment and Plan: Consult noted. Will continue with current treatment patient is currently improving. (2) Acute respiratory failure with hypoxia and hypercapnia: Code(s): J96.01 - Acute respiratory failure with hypoxia; J96.02 - Acute respiratory failure with hypercapnia Status: Acute Assessment and Plan: Patient is able to tolerate less oxygen last night. Is discussed with Pulmonary in detail. Continue to wean off oxygen. (3) Acute exacerbation of chronic obstructive pulmonary disease: Code(s): J44.1 - Chronic obstructive pulmonary disease with (acute) exacerbation Status: Acute Assessment and Plan: Patient oxygenation is improving. Plan is to continue current treatment Venofer was seen. (4) Elevated troponin: Code(s): R79.89 - Other specified abnormal findings of blood chemistry Status: Acute Assessment and Plan: Stable, continue current treatment. (5) Polysubstance use disorder: Code(s): F19.90 - Other psychoactive substance use, unspecified, uncomplicated Status: Acute Assessment and Plan: Consult given. Will be referred to outpatient treatment upon discharge. (6) Tachycardia: Code(s): R00.0 - Tachycardia, unspecified Status: Acute Assessment and Plan: Stable, continue current treatment. (7) CHF (congestive heart failure): Code(s): I50.9 - Heart failure, unspecified Status: Acute Assessment and Plan: Cardiology following. Will continue current treatment monitor closely. Plan Acute respiratory failure with hypoxia and hypercapnia: Code(s): J96.01 - Acute respiratory failure with hypoxia; J96.02 - Acute respiratory failure with hypercapnia Status: Acute Assessment and Plan: Patient presented ED with a chief complaint of shortness breath ABG showed hypercapnic and hypoxic resp failure Patient was placed on BiPAP Patient is on BiPAP p.r.n. at night Currently patient is on nasal cannular Likely resulting COPD exacerbation n Consult char filter operator, appreciate char filter operator consultation Acute exacerbation of chronic obstructive pulmonary disease: Code(s): J44.1 - Chronic obstructive pulmonary disease with (acute) exacerbation Status: Acute Assessment and Plan: Chest x-ray IMPRESSION: Peribronchial thickening with panlobular emphysematous disease. No focal infiltrate or effusion. Asymmetric density within the right mid to lower lung field for which cross- sectional imaging (noncontrast enhanced CT examination of the chest) is suggested when patient is clinically able. -on azithromycin, with cefepime cefepime and vancomycin -will deescalate him blood cultures are negative -continue methylprednisolone, -continue Xopenex and Atroven Current smoker: Code(s): F17.200 - Nicotine dependence, unspecified, uncomplicated Status: Acute Assessment and Plan: Counseled patient on cessation of smoking Polysubstance use disorder: Code(s): F19.90 - Other psychoactive substance use, unspecified, uncomplicated Status: Acute Assessment and Plan: Urine drug screen was positive for cocaine and cannabis Counseled patient cessation of cannabis and cocaine use Atrial flutter Code(s): R00.0 - Tachycardia, unspecified Status: Acute Assessment and Plan: On no history of atrial flutter Could be related to cocaine, anxiety, hypercapnic/hypoxic respiratory failure Start Cardizem drip 5mg/h, heart rate is better controlled but not in the target range Consult drill press operator for metal for evaluation treatment CHF (congestive heart failure): Code(s): I50.9 - Heart failure, unspecified Status: Acute Assessment and Plan: Euvolemic at this time, continue to monitor Echocardiogram 2/5 1. Complete two-dimensional, color flow and Doppler transthoracic echocardiogram is performed. 2. Study is limited due to tachycardia. 3. The left ventricle is normal in size and systolic function. The left ventricular ejection fraction is visually estimated to be 50-55%. 4. The right ventricle is normal in size and systolic function. 5. There is a small amount of pericardial effusion. Subjective Date/time seen: 07/06/24 11:36 Interval history: Patient was seen during the morning rounds today. Patient has mild shortness of breath. No chest pain. No abdominal pain, nausea, no vomiting. Patient was very anxious last night. Mood is much better now. Review of Systems Review of Systems: All systems reviewed & are unremarkable except as noted in HPI and below Exam Narrative: GENERAL: Ill-appearing, in no acute distress. Well-nourished. - EYES: EOMI. Anicteric. - HENT: Moist mucous membranes. - LUNGS: Coarse breath sound bilaterall y, scattered wheezing, tachypnea, - CARDIOVASCULAR: Irregular irregular r hythm, No murmur. No JVD. - ABDOMEN: Soft, non-tender and non-dist ended. No palpable masses. - EXTREMITIES: No edema. Peripheral puls es 2+. Non-tender. - NEUROLOGIC: No focal neurological defi cits. CN II-XII grossly intact. - PSYCHIATRIC: Awake, Alert and oriented x 3. Anxious mood and affect. - SKIN: No rashes or lesions. Warm. - LYMPH: No cervical lymphadenopathy. Const: Other: Disheveled, smells strongly of smoke, appears older than stated age, well nourished HENMT: Other: Mucous membranes are dry but exam limited due to BiPAP, edentulous, head is normocephalic atraumatic Eyes: Other: Pupils are equal and reactive, positive conjunctival pallor, no scleral icterus Neck: Other: No JVD, trachea midline, no gross lymphadenopathy Resp: Other: Tachypnea, decreased breath sounds throughout, no accessory muscle use, barrel chested Cardio: Other: Sinus tachycardia, 2+ bilateral radial pedal pulses, no JVD GI: Other: Distended, soft, positive bowel sounds Back/Spine/Pelvis: Other: Normal alignment, no tenderness palpation Skin: Other: Normal temperature to touch, non jaundice Neuro: Other: Somnolent, alert oriented person and place, moves all extremities equally arouses to verbal stimuli but falls back asleep quickly neuro exam limited due to patient condition and lack of patient cooperation Extrem: Other: No cyanosis, 1+ edema to feet ankles up to mid joy Psych: Other: Irritable, uncooperative Objective Data Vital Signs Vital Signs: Vital Signs - 24 hr 07/05/24 12:00 07/05/24 12:26 07/05/24 14:00 Temperature 36.5 C Pulse Rate 128 H 138 H 117 H Respiratory Rate 22 H Blood Pressure 124/92 H Pulse Oximetry 98 Oxygen Delivery Oxygen Flow Rate 07/05/24 14:02 07/05/24 14:18 07/05/24 14:31 Temperature Pulse Rate 140 H 109 H 130 H Respiratory Rate 20 20 Blood Pressure Pulse Oximetry Oxygen Delivery Oxygen Flow Rate 07/05/24 16:00 07/05/24 16:00 07/05/24 18:00 Temperature 36.6 C Pulse Rate 124 H 133 H 127 H Respiratory Rate 20 Blood Pressure 136/81 Pulse Oximetry 96 Oxygen Delivery Oxygen Flow Rate 07/05/24 19:56 07/05/24 20:00 07/05/24 20:20 Temperature 36.5 C Pulse Rate 118 H 118 H 131 H Respiratory Rate 19 20 Blood Pressure 128/98 H 128/98 H Pulse Oximetry 95 98 Oxygen Delivery Nasal Cannula Oxygen Flow Rate 1 07/05/24 20:20 07/05/24 21:06 07/05/24 21:17 Temperature Pulse Rate 106 H 130 H 131 H Respiratory Rate 20 20 Blood Pressure Pulse Oximetry Oxygen Delivery Oxygen Flow Rate 07/05/24 21:26 07/05/24 22:00 07/05/24 22:00 Temperature Pulse Rate 106 H 106 H Respiratory Rate Blood Pressure 136/90 Pulse Oximetry 98 Oxygen Delivery Nasal Cannula Oxygen Flow Rate 1 07/05/24 22:59 07/05/24 23:40 07/05/24 23:56 Temperature 37.0 C Pulse Rate 106 H 98 106 H Respiratory Rate 18 18 19 Blood Pressure 136/90 136/90 Pulse Oximetry 95 92 95 Oxygen Delivery Nasal Cannula Oxygen Flow Rate 1 07/06/24 00:00 07/06/24 00:00 07/06/24 00:35 Temperature Pulse Rate 109 H 106 H 107 H Respiratory Rate Blood Pressure 134/82 134/82 Pulse Oximetry Oxygen Delivery Oxygen Flow Rate 07/06/24 00:36 07/06/24 01:58 07/06/24 01:58 Temperature Pulse Rate 107 H 93 91 Respiratory Rate 17 Blood Pressure 134/82 132/80 Pulse Oximetry 96 Oxygen Delivery Oxygen Flow Rate 07/06/24 02:00 07/06/24 03:45 07/06/24 04:00 Temperature 36.4 C L Pulse Rate 90 95 105 H Respiratory Rate 19 18 Blood Pressure 132/80 125/76 Pulse Oximetry 93 98 Oxygen Delivery Nasal Cannula Oxygen Flow Rate 1 07/06/24 04:00 07/06/24 04:00 07/06/24 05:57 Temperature 36.9 C Pulse Rate 108 H 112 H 93 Respiratory Rate 19 Blood Pressure 125/76 125/75 Pulse Oximetry 97 Oxygen Delivery Oxygen Flow Rate 07/06/24 06:00 07/06/24 06:45 07/06/24 07:57 Temperature 36.6 C Pulse Rate 104 H 110 H 113 H Respiratory Rate 20 Blood Pressure 132/66 Pulse Oximetry 98 Oxygen Delivery Oxygen Flow Rate 07/06/24 08:18 07/06/24 08:46 07/06/24 08:46 Temperature Pulse Rate 110 H 119 H 119 H Respiratory Rate Blood Pressure Pulse Oximetry Oxygen Delivery Oxygen Flow Rate 07/06/24 08:56 07/06/24 08:56 07/06/24 09:13 Temperature Pulse Rate 120 H 120 H 110 H Respiratory Rate 26 H 26 H 20 Blood Pressure Pulse Oximetry 95 Oxygen Delivery Room Air Oxygen Flow Rate 07/06/24 10:00 Temperature 36.4 C Pulse Rate 119 H Respiratory Rate 20 Blood Pressure 105/71 Pulse Oximetry 91 Oxygen Delivery Oxygen Flow Rate Intake/Output Intake/Output: Intake & Output 07/03/24 07/04/24 07/05/24 07/06/24 23:59 23:59 23:59 23:59 Intake Total 350 3570 1963.6 646.0 Output Total 1600 2150 2100 Balance 350 1970 -186.4 -1454.0 Meds/Results Medications: Active Medications Generic Name Dose Route Start Last Admin Trade Name Freq PRN Reason Stop Dose Admin Alprazolam 0.5 mg 07/05/24 13:28 07/06/24 00:37 Alprazolam (*Crx) 0.5 Mg Tablet PO 0.5 mg TID PRN Administration Anxiety Apixaban 5 mg 07/04/24 09:00 07/06/24 08:45 Apixaban 5 Mg Tablet PO 5 mg Q12HR JENNY Administration Aripiprazole 2 mg 07/04/24 09:00 07/06/24 08:45 Aripiprazole 2 Mg Tablet PO 2 mg DAILY JENNY Administration Benzocaine 1 lozenge 07/04/24 09:51 07/06/24 00:38 Benzocaine/Menthol (*Bkc) 18 Ea Lozenge PO 1 lozenge PRN PRN Administration Sore Throat Digoxin 125 mcg 07/06/24 11:05 Digoxin Tab 125 Mcg Tablet PO QAM JENNY Diltiazem HCl 360 mg 07/04/24 09:00 07/06/24 08:44 Diltiazem Hcl Cd 180 Mg Cap.24hr PO 360 mg QAM JENNY Administration Doxycycline Hyclate 100 mg 07/05/24 14:00 07/06/24 08:45 Doxycycline Hyclate 100 Mg Tablet PO 02/11/25 23:59 100 mg Q12HR JENNY Administration Fluticasone/Umeclidinium/Vilanterol 1 puff 07/06/24 10:05 Fluticasone/Umeclidin/Vilanter 100-62.5-25 Mcg Ellipta INHALATION DAILYRT JENNY Furosemide 40 mg 07/06/24 09:00 07/06/24 08:43 Furosemide 40 Mg Tablet PO 40 mg DAILY JENNY Administration Guaifenesin 1,200 mg 07/04/24 21:00 07/06/24 08:44 Guaifenesin 12 Hr 600 Mg Tabcr PO 1,200 mg Q12HR JENNY Administration Diltiazem HCl 100 mg in 100 mls @ 5 mls/hr 07/05/24 08:45 07/06/24 08:46 Cardizem 100 Mg/100 Ml IV CONT 5 mg/hr .Q20H JENNY 5 mls/hr Administration 5 MG/HR Cefepime HCl 2 gm in 50 mls @ 100 mls/hr 07/05/24 21:00 07/06/24 08:46 Maxipime 2 Gm/Ns 50 Ml IVPB 100 mls/hr Q12H JENNY Administration Linezolid 600 mg 07/05/24 21:00 07/06/24 08:50 Linezolid 600 Mg Tablet PO 07/10/24 23:59 600 mg Q12HR JENNY Administration Losartan Potassium 50 mg 07/04/24 09:00 07/06/24 08:45 Losartan Potassium 50 Mg Tablet PO 50 mg DAILY JENNY Administration Perflutren Lipid Microsphere 0 ml 07/04/24 07:12 Perflutren Lipid Microspheres 1.5 Ml Vial Diluted To 10 Ml Total Volume IV PUSH 07/07/24 07:12 ONCE PRN adequate visualization Protocol Prednisone 40 mg 07/05/24 09:50 07/06/24 08:45 Prednisone 20 Mg Tablet PO 07/07/24 13:00 40 mg DAILY@0800 JENNY Administration Radiology Results: ITS Impressions Chest X-Ray 07/03/24 17:59 IMPRESSION: Peribronchial thickening with panlobular emphysematous disease. No focal infiltrate or effusion. Asymmetric density within the right mid to lower lung field for which cross- sectional imaging (noncontrast enhanced CT examination of the chest) is rao ggested when patient is clinically able. Chest CTA 07/04/24 21:28 IMPRESSION: No pulmonary embolus. No thoracic aortic dissection. Panlobular emphysematous change with additional chronic pulmonary disease. Labs Labs: Laboratory Results - last 24 hr 07/05/24 05:15 [id number] Quality VTE Prophylaxis VTE prophylaxis: pharmacologic ordered (Resume home Eliquis)
[2024-07-06] MEDS: DIGOXIN TAB 125 MCG TABLET PO (13:32)
[2024-07-07] VITALS (18 sets, daily range): BP systolic 118–172; BP diastolic 59–97; PULSE 71–116; RESP 16–24; TEMP 36.3–37; O2SAT 90–100
--- NOTE | 2024-07-07 09:31 | PM.IMPN ---
Progress Note: A&P Assessment and Plan (1) Polysubstance use disorder: Code(s): F19.90 - Other psychoactive substance use, unspecified, uncomplicated Status: Acute (2) CHF exacerbation: Qualifiers: Heart failure type: unspecified Qualified Code(s): I50.9 - Heart failure, unspecified Code(s): I50.9 - Heart failure, unspecified Status: Acute (3) Tachycardia: Code(s): R00.0 - Tachycardia, unspecified Status: Acute (4) Acute respiratory failure with hypoxia and hypercapnia: Code(s): J96.01 - Acute respiratory failure with hypoxia; J96.02 - Acute respiratory failure with hypercapnia Status: Acute (5) Acute exacerbation of chronic obstructive pulmonary disease: Code(s): J44.1 - Chronic obstructive pulmonary disease with (acute) exacerbation Status: Acute (6) Atrial flutter: Code(s): I48.92 - Unspecified atrial flutter Status: Acute (7) Elevated troponin: Code(s): R79.89 - Other specified abnormal findings of blood chemistry Status: Acute Plan Acute respiratory failure with hypoxia and hypercapnia: Code(s): J96.01 - Acute respiratory failure with hypoxia; J96.02 - Acute respiratory failure with hypercapnia Status: Acute Assessment and Plan: Patient presented ED with a chief complaint of shortness breath ABG showed hypercapnic and hypoxic resp failure Patient was placed on BiPAP Currently patient is on nasal cannular Likely resulting COPD exacerbation Consult elevator examiner and adjuster, appreciate elevator examiner and adjuster consultation Acute exacerbation of chronic obstructive pulmonary disease: Code(s): J44.1 - Chronic obstructive pulmonary disease with (acute) exacerbation Status: Acute Assessment and Plan: Chest x-ray IMPRESSION: Peribronchial thickening with panlobular emphysematous disease. No focal infiltrate or effusion. Asymmetric density within the right mid to lower lung field for which cross-sectional imaging (noncontrast enhanced CT examination of the chest) is suggested when patient is clinically able. Received azithromycin, with cefepime cefepime and vancomycin Received e methylprednisolone, continue Xopenex and Atroven Appreciate elevator examiner and adjuster consultation, Per Dr. Murray,assuming Staph epidermidis on 07/03/2024 is a contaminant and repeat blood cultures remain negative would recommend total of 7 days of antibiotics. Patient is on Lasix 40 mg p.o. q.day. Continue cefepime, Zyvox, Current smoker: Code(s): F17.200 - Nicotine dependence, unspecified, uncomplicated Status: Acute Assessment and Plan: Counseled patient on cessation of smoking Polysubstance use disorder: Code(s): F19.90 - Other psychoactive substance use, unspecified, uncomplicated Status: Acute Assessment and Plan: Urine drug screen was positive for cocaine and cannabis Counseled patient cessation of cannabis and cocaine use Atrial flutter Code(s): R00.0 - Tachycardia, unspecified Status: Acute Assessment and Plan: On no history of atrial flutter Could be related to cocaine, anxiety, hypercapnic/hypoxic respiratory failure Start Cardizem drip 5mg/h, heart rate is better controlled but not in the target range Consult gifted teacher for evaluation treatment Information Security Officer considers LEIDY/CV which would need to take place with anesthesia because of MATTEHW CHF (congestive heart failure): Code(s): I50.9 - Heart failure, unspecified Status: Acute Assessment and Plan: Euvolemic at this time, continue to monitor Echocardiogram 2/5 1. Complete two-dimensional, color flow and Doppler transthoracic echocardiogram is performed. 2. Study is limited due to tachycardia. 3. The left ventricle is normal in size and systolic function. The left ventricular ejection fraction is visually estimated to be 50-55%. 4. The right ventricle is normal in size and systolic function. 5. There is a small amount of pericardial effusion. Subjective Date/time seen: 07/07/24 09:31 Interval history: I saw and examined patient today. Patient feels better, dyspnea is improving, denies chest pain, palpitation abdomen pain nausea vomiting. Patient has a general weakness, dyspnea significant with exertion Telemetry showed AFib/a flutter rate not well controlled Exam Narrative: GENERAL: Ill-appearing, in no acute distress. Well-nourished. - EYES: EOMI. Anicteric. - HENT: Moist mucous membranes. - LUNGS: Coarse breath sound bilaterally, scattered wheezing, tachypnea, - CARDIOVASCULAR: Irregular irregular rhythm, No murmur. No JVD. - ABDOMEN: Soft, non-tender and non-distended. No palpable masses. - EXTREMITIES: No edema. Peripheral pulses 2+. Non-tender. - NEUROLOGIC: No focal neurological deficits. CN II-XII grossly intact. - PSYCHIATRIC: Awake, Alert and oriented x 3. Anxious mood and affect. - SKIN: No rashes or lesions. Warm. - LYMPH: No cervical lymphadenopathy. Objective Data Vital Signs Vital Signs: Vital Signs - 24 hr 07/06/24 10:00 07/06/24 11:41 07/06/24 12:00 Temperature 97.6 F 97.5 F L Pulse Rate 119 H 98 104 H Respiratory Rate 20 20 Blood Pressure 105/71 126/85 Pulse Oximetry 91 93 Oxygen Delivery 07/06/24 13:32 07/06/24 14:00 07/06/24 16:00 Temperature 97.6 F Pulse Rate 106 H 94 108 H Respiratory Rate 20 Blood Pressure 137/82 Pulse Oximetry 96 Oxygen Delivery 07/06/24 16:00 07/06/24 18:00 07/06/24 18:00 Temperature 97.6 F 98.0 F Pulse Rate 102 H 101 H 105 H Respiratory Rate 18 18 Blood Pressure 119/64 117/66 Pulse Oximetry 95 93 Oxygen Delivery 07/06/24 19:38 07/06/24 20:00 07/06/24 20:00 Temperature 97 F L Pulse Rate 107 H 102 H 110 H Respiratory Rate 16 Blood Pressure 136/71 136/71 Pulse Oximetry 94 Oxygen Delivery 07/06/24 21:00 07/06/24 21:43 07/06/24 22:00 Temperature 97.1 F L Pulse Rate 83 105 H Respiratory Rate 24 H Blood Pressure 130/93 H 130/93 H Pulse Oximetry 93 Oxygen Delivery Room Air 07/06/24 22:00 07/06/24 23:46 07/07/24 00:00 Temperature 96 F L Pulse Rate 105 H 115 H 116 H Respiratory Rate 24 H Blood Pressure 118/69 Pulse Oximetry 96 Oxygen Delivery 07/07/24 00:00 07/07/24 00:00 07/07/24 01:44 Temperature 97.6 F Pulse Rate 115 H 101 H Respiratory Rate 16 Blood Pressure 118/69 158/96 H Pulse Oximetry 93 Oxygen Delivery Room Air 07/07/24 02:00 07/07/24 02:00 07/07/24 04:00 Temperature 97.6 F Pulse Rate 80 80 115 H Respiratory Rate 24 H Blood Pressure 158/96 H 155/85 H Pulse Oximetry 92 Oxygen Delivery 07/07/24 04:00 07/07/24 04:00 07/07/24 04:20 Temperature Pulse Rate 103 H 103 H Respiratory Rate Blood Pressure 155/85 H Pulse Oximetry Oxygen Delivery Room Air 07/07/24 05:37 07/07/24 06:00 07/07/24 06:00 Temperature Pulse Rate 87 106 H 106 H Respiratory Rate 24 H Blood Pressure 149/97 H 149/97 H Pulse Oximetry 97 Oxygen Delivery 07/07/24 08:00 Temperature 97.6 F Pulse Rate 85 Respiratory Rate 18 Blood Pressure 147/89 H Pulse Oximetry 100 Oxygen Delivery Intake/Output Intake/Output: Intake & Output 07/04/24 07/05/24 07/06/24 07/07/24 23:59 23:59 23:59 23:59 Intake Total 3570 1963.6 1292.2 633.8 Output Total 1600 2150 4600 1925 Balance 1970 -186.4 -3307.8 -1291.2 Meds/Results Medications: Active Medications Generic Name Dose Route Start Last Admin Trade Name Freq PRN Reason Stop Dose Admin Alprazolam 0.5 mg 07/05/24 13:28 07/06/24 20:52 Alprazolam (*Crx) 0.5 Mg Tablet PO 0.5 mg TID PRN Administration Anxiety Apixaban 5 mg 07/04/24 09:00 07/06/24 20:52 Apixaban 5 Mg Tablet PO 5 mg Q12HR JENNY Administration Aripiprazole 2 mg 07/04/24 09:00 07/06/24 08:45 Aripiprazole 2 Mg Tablet PO 2 mg DAILY JENNY Administration Benzocaine 1 lozenge 07/04/24 09:51 07/06/24 00:38 Benzocaine/Menthol (*Bkc) 18 Ea Lozenge PO 1 lozenge PRN PRN Administration Sore Throat Digoxin 125 mcg 07/06/24 11:05 07/06/24 13:32 Digoxin Tab 125 Mcg Tablet PO 125 mcg QAM JENNY Administration Diltiazem HCl 360 mg 07/04/24 09:00 07/06/24 08:44 Diltiazem Hcl Cd 180 Mg Cap.24hr PO 360 mg QAM JENNY Administration Doxycycline Hyclate 100 mg 07/05/24 14:00 07/06/24 20:52 Doxycycline Hyclate 100 Mg Tablet PO 07/10/24 23:59 100 mg Q12HR JENNY Administration Fluticasone/Umeclidinium/Vilanterol 1 puff 07/06/24 10:05 07/06/24 12:38 Fluticasone/Umeclidin/Vilanter 100-62.5-25 Mcg Ellipta INHALATION Not Given DAILYRT JENNY Furosemide 40 mg 07/06/24 09:00 07/06/24 08:43 Furosemide 40 Mg Tablet PO 40 mg DAILY JENNY Administration Guaifenesin 1,200 mg 07/04/24 21:00 07/06/24 20:52 Guaifenesin 12 Hr 600 Mg Tabcr PO 1,200 mg Q12HR JENNY Administration Diltiazem HCl 100 mg in 100 mls @ 5 mls/hr 07/05/24 08:45 07/07/24 06:00 Cardizem 100 Mg/100 Ml IV CONT Infused .Q20H JENNY Infusion 5 MG/HR Cefepime HCl 2 gm in 50 mls @ 100 mls/hr 07/05/24 21:00 07/06/24 21:25 Maxipime 2 Gm/Ns 50 Ml IVPB Infused Q12H JENNY Infusion Ipratropium [place] 0.5 mg 07/06/24 23:59 Ipratropium Br 0.02% Inh Soln 0.5 Mg/2.5 Ml Vial INHALATION Q4HRT PRN Shortness Of Breath Levalbuterol HCl 1.25 mg 07/07/24 00:03 Levalbuterol Neb 1.25 Mg/3 Ml INHALATION Q4HRT PRN Shortness Of Breath Or Wheezing Linezolid 600 mg 07/05/24 21:00 07/06/24 20:52 Linezolid 600 Mg Tablet PO 07/10/24 23:59 600 mg Q12HR JENNY Administration Losartan Potassium 50 mg 07/04/24 09:00 07/06/24 08:45 Losartan Potassium 50 Mg Tablet PO 50 mg DAILY JENNY Administration Prednisone 40 mg 07/05/24 09:50 07/06/24 08:45 Prednisone 20 Mg Tablet PO 07/07/24 13:00 40 mg DAILY@0800 JENNY Administration Radiology Results: ITS Impressions Chest X-Ray 07/03/24 17:59 IMPRESSION: Peribronchial thickening with panlobular emphysematous disease. No focal infiltrate or effusion. Asymmetric density within the right mid to lower lung field for which cross-sectional imaging (noncontrast enhanced CT examination of the chest) is suggested when patient is clinically able. Chest CTA 07/04/24 21:28 IMPRESSION: No pulmonary embolus. No thoracic aortic dissection. Panlobular emphysematous change with additional chronic pulmonary disease.
[2024-07-07] MEDS: predniSONE 20 MG TABLET 40 MG PO (09:51)
[2024-07-07] MEDS: DOXYCYCLINE HYCLATE 100 MG TABLET PO ×2 (09:51→21:04)
[2024-07-07] MEDS: FUROSEMIDE 40 MG TABLET PO (09:52)
[2024-07-07] MEDS: ARIPiprazole 2 MG TABLET PO (09:52)
[2024-07-07] MEDS: LOSARTAN POTASSIUM 50 MG TABLET PO (09:52)
[2024-07-07] MEDS: dilTIAZem HCL CD 180 MG CAP.24HR 360 MG PO (09:52)
[2024-07-07] MEDS: LINEZOLID 600 MG TABLET PO ×2 (09:52→21:04)
[2024-07-07] MEDS: DIGOXIN TAB 125 MCG TABLET PO (09:52)
[2024-07-07] MEDS: APIXABAN 5 MG TABLET PO ×2 (09:53→21:04)
[2024-07-07] MEDS: CEFEPIME 2 GM/NS 50 ML 2 GM/50 ML BAG IVPB ×2 (09:57→21:07)
[2024-07-07] MEDS: guaiFENesin 12 HR 600 MG TABCR 1200 MG PO ×2 (13:33→21:04)
[2024-07-07] MEDS: dilTIAZem 100 MG/100 ML 100 MG/100 ML BAG IV CONT (16:45)
[2024-07-07 18:33] LABS: Mycoplasma IgM Antibody Titer 114 U/mL
[2024-07-07] MEDS: ALPRAZolam (*CRX) 0.5 MG TABLET PO (21:04)
[2024-07-07] MEDS: BENZOCAINE/MENTHOL (*BKC) 18 EA LOZENGE 1 LOZENGE PO (21:05)
[2024-07-07 22:29] LABS: Legionella pneumophila Ag Ur NOT DETECTED
[2024-07-08] VITALS (15 sets, daily range): BP systolic 143–172; BP diastolic 69–110; PULSE 69–107; RESP 18–20; TEMP 36.3–37; O2SAT 94–100
[2024-07-08] MEDS: DIGOXIN TAB 125 MCG TABLET PO (09:18)
[2024-07-08] MEDS: DOXYCYCLINE HYCLATE 100 MG TABLET PO (09:18)
[2024-07-08] MEDS: APIXABAN 5 MG TABLET PO (09:18)
[2024-07-08] MEDS: CEFEPIME 2 GM/NS 50 ML 2 GM/50 ML BAG IVPB (09:18)
[2024-07-08] MEDS: LINEZOLID 600 MG TABLET PO (09:18)
[2024-07-08] MEDS: guaiFENesin 12 HR 600 MG TABCR 1200 MG PO (09:18)
[2024-07-08] MEDS: FUROSEMIDE 40 MG TABLET PO (09:18)
[2024-07-08] MEDS: dilTIAZem HCL CD 180 MG CAP.24HR 360 MG PO (09:18)
[2024-07-08] MEDS: LOSARTAN POTASSIUM 50 MG TABLET PO (09:18)
[2024-07-08] MEDS: ARIPiprazole 2 MG TABLET PO (09:21)
--- NOTE | 2024-07-08 09:34 | PM.IMPN ---
Progress Note: A&P Assessment and Plan (1) Polysubstance use disorder: Code(s): F19.90 - Other psychoactive substance use, unspecified, uncomplicated Status: Acute (2) CHF exacerbation: Qualifiers: Heart failure type: unspecified Qualified Code(s): I50.9 - Heart failure, unspecified Code(s): I50.9 - Heart failure, unspecified Status: Acute (3) Tachycardia: Code(s): R00.0 - Tachycardia, unspecified Status: Acute (4) Acute respiratory failure with hypoxia and hypercapnia: Code(s): J96.01 - Acute respiratory failure with hypoxia; J96.02 - Acute respiratory failure with hypercapnia Status: Acute (5) Acute exacerbation of chronic obstructive pulmonary disease: Code(s): J44.1 - Chronic obstructive pulmonary disease with (acute) exacerbation Status: Acute (6) Atrial flutter: Code(s): I48.92 - Unspecified atrial flutter Status: Acute (7) Elevated troponin: Code(s): R79.89 - Other specified abnormal findings of blood chemistry Status: Acute Plan Acute respiratory failure with hypoxia and hypercapnia: Code(s): J96.01 - Acute respiratory failure with hypoxia; J96.02 - Acute respiratory failure with hypercapnia Status: Acute Assessment and Plan: Patient presented ED with a chief complaint of shortness breath ABG showed hypercapnic and hypoxic resp failure Patient was placed on BiPAP Currently patient is on nasal cannular Likely resulting COPD exacerbation Consult light equipment operator, appreciate light equipment operator consultation Acute exacerbation of chronic obstructive pulmonary disease: Code(s): J44.1 - Chronic obstructive pulmonary disease with (acute) exacerbation Status: Acute Assessment and Plan: Chest x-ray IMPRESSION: Peribronchial thickening with panlobular emphysematous disease. No focal infiltrate or effusion. Asymmetric density within the right mid to lower lung field for which cross-sectional imaging (noncontrast enhanced CT examination of the chest) is suggested when patient is clinically able. Received azithromycin, with cefepime cefepime and vancomycin Received e methylprednisolone, continue Xopenex and Atroven Appreciate light equipment operator consultation, Per Dr. Murray,assuming Staph epidermidis on 07/03/2024 is a contaminant and repeat blood cultures remain negative would recommend total of 7 days of antibiotics. Patient is on Lasix 40 mg p.o. q.day. Continue cefepime, Zyvox, Per light equipment operator, discharged over the weekend on these pulmonary medications: Cefdinir 300 mg p.o. b.i.d. last dose evening of 07/09 linezolid 600 mg p.o. b.i.d. last dose evening of 07/09 doxycycline 100 mg p.o. b.i.d. last dose evening of 07/09 Guaifenesin 1200 mg p.o. b.i.d. p.r.n. cough.Incruse Ellipta 62.5 at 1 puff q.day He has 2 home ICS/LABA inhalers on his home medicine list: Symbicort 160-4.5 at 2 puffs q.12 and Dulera 200-5 at 2 puffs b.i.d. he should only be discharged on 1 of these inhalers. Current smoker: Code(s): F17.200 - Nicotine dependence, unspecified, uncomplicated Status: Acute Assessment and Plan: Counseled patient on cessation of smoking Polysubstance use disorder: Code(s): F19.90 - Other psychoactive substance use, unspecified, uncomplicated Status: Acute Assessment and Plan: Urine drug screen was positive for cocaine and cannabis Counseled patient cessation of cannabis and cocaine use Atrial flutter Code(s): R00.0 - Tachycardia, unspecified Status: Acute Assessment and Plan: On no history of atrial flutter Could be related to cocaine, anxiety, hypercapnic/hypoxic respiratory failure Start Cardizem drip 5mg/h, heart rate is better controlled but not in the target range Consult school teacher for evaluation treatment Computing Architect considers LEIDY/CV which would need to take place with anesthesia because of MATTHEW Cardiology recommend to hold discharge pt and titrate medication for better rate control CHF (congestive heart failure): Code(s): I50.9 - Heart failure, unspecified Status: Acute Assessment and Plan: Euvolemic at this time, continue to monitor Echocardiogram 07/04 1. Complete two-dimensional, color flow and Doppler transthoracic echocardiogram is performed. 2. Study is limited due to tachycardia. 3. The left ventricle is normal in size and systolic function. The left ventricular ejection fraction is visually estimated to be 50-55%. 4. The right ventricle is normal in size and systolic function. 5. There is a small amount of pericardial effusion. Subjective Date/time seen: 07/08/24 09:34 Interval history: I saw and examined patient today. Patient feels better, dyspnea is improving, denies chest pain, palpitation abdomen pain nausea vomiting. Patient has a general weakness, dyspnea significant with exertion Telemetry showed AFib/a flutter rate not well controlled Exam Narrative: GENERAL: Ill-appearing, in no acute distress. Well-nourished. - EYES: EOMI. Anicteric. - HENT: Moist mucous membranes. - LUNGS: Coarse breath sound bilaterally, scattered wheezing, tachypnea, - CARDIOVASCULAR: Irregular irregular rhythm, No murmur. No JVD. - ABDOMEN: Soft, non-tender and non-distended. No palpable masses. - EXTREMITIES: No edema. Peripheral pulses 2+. Non-tender. - NEUROLOGIC: No focal neurological deficits. CN II-XII grossly intact. - PSYCHIATRIC: Awake, Alert and oriented x 3. Anxious mood and affect. - SKIN: No rashes or lesions. Warm. - LYMPH: No cervical lymphadenopathy. Objective Data Vital Signs Vital Signs: Vital Signs - 24 hr 07/07/24 10:00 07/07/24 10:00 07/07/24 12:00 Temperature 97.5 F L Pulse Rate 98 103 H 106 H Respiratory Rate 20 24 H Blood Pressure 121/59 L 142/88 H Pulse Oximetry 94 95 Oxygen Delivery Oxygen Flow Rate 07/07/24 12:00 07/07/24 12:00 07/07/24 14:00 Temperature 97.4 F L Pulse Rate 106 H 90 Respiratory Rate 22 H Blood Pressure 123/77 Pulse Oximetry 97 Oxygen Delivery Room Air Oxygen Flow Rate 07/07/24 14:00 07/07/24 15:50 07/07/24 16:00 Temperature 98.2 F Pulse Rate 90 71 Respiratory Rate 20 Blood Pressure 127/80 Pulse Oximetry 99 Oxygen Delivery Room Air Oxygen Flow Rate 07/07/24 16:00 07/07/24 16:45 07/07/24 18:00 Temperature Pulse Rate 111 H 102 H 105 H Respiratory Rate Blood Pressure 127/80 Pulse Oximetry Oxygen Delivery Oxygen Flow Rate 07/07/24 18:00 07/07/24 18:00 07/07/24 20:00 Temperature 97.4 F L 97.8 F Pulse Rate 93 105 H 86 Respiratory Rate 20 19 Blood Pressure 124/64 124/60 154/96 H Pulse Oximetry 90 95 Oxygen Delivery Oxygen Flow Rate 07/07/24 20:00 07/07/24 20:00 07/07/24 21:05 Temperature Pulse Rate 86 100 Respiratory Rate Blood Pressure 154/96 H Pulse Oximetry 95 Oxygen Delivery Nasal Cannula Oxygen Flow Rate 2 07/07/24 22:00 07/07/24 22:00 07/07/24 22:00 Temperature Pulse Rate 90 90 86 Respiratory Rate 18 Blood Pressure 172/92 H 172/92 H Pulse Oximetry 99 Oxygen Delivery Oxygen Flow Rate 07/07/24 23:52 07/08/24 00:00 07/08/24 00:00 Temperature 98.6 F Pulse Rate 95 95 101 H Respiratory Rate 19 Blood Pressure 146/77 H 146/77 H Pulse Oximetry 100 Oxygen Delivery Oxygen Flow Rate 07/08/24 00:25 07/08/24 02:00 07/08/24 02:00 Temperature 98.6 F Pulse Rate 96 96 Respiratory Rate 19 Blood Pressure 172/94 H 172/94 H Pulse Oximetry 100 95 Oxygen Delivery Nasal Cannula Oxygen Flow Rate 2 07/08/24 02:00 07/08/24 03:36 07/08/24 04:00 Temperature 98.6 F Pulse Rate 81 75 75 Respiratory Rate 18 Blood Pressure 166/92 H 166/92 H Pulse Oximetry 100 Oxygen Delivery Oxygen Flow Rate 07/08/24 04:00 07/08/24 04:05 07/08/24 06:00 Temperature 98.6 F Pulse Rate 69 85 Respiratory Rate 18 Blood Pressure 143/91 H Pulse Oximetry 100 94 Oxygen Delivery Nasal Cannula Oxygen Flow Rate 2 07/08/24 06:00 07/08/24 06:00 07/08/24 08:22 Temperature 97.9 F Pulse Rate 77 85 107 H Respiratory Rate 18 Blood Pressure 143/91 H 153/110 H Pulse Oximetry 95 Oxygen Delivery Oxygen Flow Rate 07/08/24 09:18 Temperature Pulse Rate 100 Respiratory Rate Blood Pressure Pulse Oximetry Oxygen Delivery Oxygen Flow Rate Intake/Output Intake/Output: Intake & Output 07/05/24 07/06/24 07/07/24 07/08/24 23:59 23:59 23:59 23:59 Intake Total 1963.6 1292.2 1240.1 40 Output Total 2150 4600 2475 2800 Balance -186.4 -3307.8 -1234.9 -2760 Meds/Results Medications: Active Medications Generic Name Dose Route Start Last Admin Trade Name Freq PRN Reason Stop Dose Admin Alprazolam 0.5 mg 07/05/24 13:28 07/07/24 21:04 Alprazolam (*Crx) 0.5 Mg Tablet PO 0.5 mg TID PRN Administration Anxiety Apixaban 5 mg 07/04/24 09:00 07/08/24 09:18 Apixaban 5 Mg Tablet PO 5 mg Q12HR JENNY Administration Aripiprazole 2 mg 07/04/24 09:00 07/08/24 09:21 Aripiprazole 2 Mg Tablet PO 2 mg DAILY JENNY Administration Benzocaine 1 lozenge 07/04/24 09:51 07/07/24 21:05 Benzocaine/Menthol (*Bkc) 18 Ea Lozenge PO 1 lozenge PRN PRN Administration Sore Throat Digoxin 125 mcg 07/06/24 11:05 07/08/24 09:18 Digoxin Tab 125 Mcg Tablet PO 125 mcg QAM JENNY Administration Diltiazem HCl 360 mg 07/04/24 09:00 07/08/24 09:18 Diltiazem Hcl Cd 180 Mg Cap.24hr PO 360 mg QAM JENNY Administration Doxycycline Hyclate 100 mg 07/05/24 14:00 07/08/24 09:18 Doxycycline Hyclate 100 Mg Tablet PO 07/10/24 23:59 100 mg Q12HR JENNY Administration Fluticasone/Umeclidinium/Vilanterol 1 puff 07/06/24 10:05 07/07/24 10:10 Fluticasone/Umeclidin/Vilanter 100-62.5-25 Mcg Ellipta INHALATION Not Given DAILYRT JENNY Furosemide 40 mg 07/06/24 09:00 07/08/24 09:18 Furosemide 40 Mg Tablet PO 40 mg DAILY JENNY Administration Guaifenesin 1,200 mg 07/04/24 21:00 07/08/24 09:18 Guaifenesin 12 Hr 600 Mg Tabcr PO 1,200 mg Q12HR JENNY Administration Diltiazem HCl 100 mg in 100 mls @ 5 mls/hr 07/05/24 08:45 07/08/24 06:00 Cardizem 100 Mg/100 Ml IV CONT 5 mg/hr .Q20H JENNY 5 mls/hr Infusion 5 MG/HR Cefepime HCl 2 gm in 50 mls @ 100 mls/hr 07/05/24 21:00 07/08/24 09:18 Maxipime 2 Gm/Ns 50 Ml IVPB 100 mls/hr Q12H JENNY Administration Ipratropium [place] 0.5 mg 07/06/24 23:59 Ipratropium Br 0.02% Inh Soln 0.5 Mg/2.5 Ml Vial INHALATION Q4HRT PRN Shortness Of Breath Levalbuterol HCl 1.25 mg 07/07/24 00:03 Levalbuterol Neb 1.25 Mg/3 Ml INHALATION Q4HRT PRN Shortness Of Breath Or Wheezing Linezolid 600 mg 07/05/24 21:00 07/08/24 09:18 Linezolid 600 Mg Tablet PO 07/10/24 23:59 600 mg Q12HR JENNY Administration Losartan Potassium 50 mg 07/04/24 09:00 07/08/24 09:18 Losartan Potassium 50 Mg Tablet PO 50 mg DAILY JENNY Administration Radiology Results: ITS Impressions Chest X-Ray 07/03/24 17:59 IMPRESSION: Peribronchial thickening with panlobular emphysematous disease. No focal infiltrate or effusion. Asymmetric density within the right mid to lower lung field for which cross-sectional imaging (noncontrast enhanced CT examination of the chest) is suggested when patient is clinically able. Chest CTA 07/04/24 21:28 IMPRESSION: No pulmonary embolus. No thoracic aortic dissection. Panlobular emphysematous change with additional chronic pulmonary disease. Labs Labs: Laboratory Results - last 24 hr 07/04/24 07/05/24 20:38 05:14 Ur L.pneumophila Ag Not detected Mycoplasma pneumon IgM 114 SARS-CoV-2 RNA (RT-PCR) Not detected
--- NOTE | 2024-07-08 09:38 | P.DS_ITS ---
DS: Admitting Diagnosis Discharge Date 07/08/24 Admitting Diagnosis (1) Polysubstance use disorder: Code(s): F19.90 - Other psychoactive substance use, unspecified, uncomplicated Status: Acute (2) CHF exacerbation: Qualifiers: Heart failure type: unspecified Qualified Code(s): I50.9 - Heart failure, unspecified Code(s): I50.9 - Heart failure, unspecified Status: Acute (3) Tachycardia: Code(s): R00.0 - Tachycardia, unspecified Status: Acute (4) Acute respiratory failure with hypoxia and hypercapnia: Code(s): J96.01 - Acute respiratory failure with hypoxia; J96.02 - Acute respiratory failure with hypercapnia Status: Acute (5) Acute exacerbation of chronic obstructive pulmonary disease: Code(s): J44.1 - Chronic obstructive pulmonary disease with (acute) exacerbation Status: Acute (6) Atrial flutter: Code(s): I48.92 - Unspecified atrial flutter Status: Acute (7) Elevated troponin: Code(s): R79.89 - Other specified abnormal findings of blood chemistry Status: Acute DS: Discharge Diagnosis Discharge Diagnosis (1) Polysubstance use disorder: Code(s): F19.90 - Other psychoactive substance use, unspecified, uncomplicated Status: Acute (2) CHF exacerbation: Qualifiers: Heart failure type: unspecified Qualified Code(s): I50.9 - Heart failure, unspecified Code(s): I50.9 - Heart failure, unspecified Status: Acute (3) Tachycardia: Code(s): R00.0 - Tachycardia, unspecified Status: Acute (4) Acute respiratory failure with hypoxia and hypercapnia: Code(s): J96.01 - Acute respiratory failure with hypoxia; J96.02 - Acute respiratory failure with hypercapnia Status: Acute (5) Acute exacerbation of chronic obstructive pulmonary disease: Code(s): J44.1 - Chronic obstructive pulmonary disease with (acute) exacerbation Status: Acute (6) Atrial flutter: Code(s): I48.92 - Unspecified atrial flutter Status: Acute (7) Elevated troponin: Code(s): R79.89 - Other specified abnormal findings of blood chemistry Status: Acute DS: Summary Hospital Course Hospital Course: 64-year-old male with past medical history of COPD resulting and chronic hypoxic hypercarbic respiratory failure on home O2 of 3 L, CHF, bipolar disorder who presented to the ER via EMS due to shortness of breath. The patient had evidently been feeling ill for about a week. EMS stated the patient was in and out of consciousness on her route hospital. He had initially reported some dull central chest pain to EMS for which he received 1 dose of sublingual nitro. The patient was somnolent at the time of my evaluation and fell asleep multiple times. He did not provide me with any review of systems except for that he has been short of breath. EMS report stated that the patient had reported been diagnosed with pneumonia 1 week ago. He had reportedly been taking his medications as prescribed. It appears that he had a script filled for Levaquin and prednisone on June 12. The patient was brought to the ER on CPAP. The patient had reported subjective improvement in shortness of breath on CPAP according to EMS report. The following med issues have been addressed during hospitalization Acute respiratory failure with hypoxia and hypercapnia: Code(s): J96.01 - Acute respiratory failure with hypoxia; J96.02 - Acute respiratory failure with hypercapnia Status: Acute Assessment and Plan: Patient presented ED with a chief complaint of shortness breath ABG showed hypercapnic and hypoxic resp failure Patient was placed on BiPAP Currently patient is on nasal cannular Likely resulting COPD exacerbation Consult manufacturing maintenance technician, appreciate manufacturing maintenance technician consultation Acute exacerbation of chronic obstructive pulmonary disease: Code(s): J44.1 - Chronic obstructive pulmonary disease with (acute) exacerbation Status: Acute Assessment and Plan: Chest x-ray IMPRESSION: Peribronchial thickening with panlobular emphysematous disease. No focal infiltrate or effusion. Asymmetric density within the right mid to lower lung field for which cross- sectional imaging (noncontrast enhanced CT examination of the chest) is suggested when patient is clinically able. Received azithromycin, with cefepime cefepime and vancomycin Received e methylprednisolone, continue Xopenex and Atroven Appreciate manufacturing maintenance technician consultation, Per Dr. Murray,assuming Staph epidermidis on 07/03/2024 is a contaminant and repeat blood cultures remain negative would recommend total of 7 days of antibiotics. Patient is on Lasix 40 mg p.o. q.day. Continue cefepime, Zyvox, Per manufacturing maintenance technician, discharged over the weekend on these pulmonary medications: Cefdinir 300 mg p.o. b.i.d. last dose evening of 07/09 linezolid 600 mg p.o. b.i.d. last dose evening of 07/09 doxycycline 100 mg p.o. b.i.d. last dose evening of 07/09 Guaifenesin 1200 mg p.o. b.i.d. p.r.n. cough.Incruse Ellipta 62.5 at 1 puff q.day He has 2 home ICS/LABA inhalers on his home medicine list: Symbicort 160-4.5 at 2 puffs q.12 and Dulera 200-5 at 2 puffs b.i.d. he should only be discharged on 1 of these inhalers. Current smoker: Code(s): F17.200 - Nicotine dependence, unspecified, uncomplicated Status: Acute Assessment and Plan: Counseled patient on cessation of smoking Polysubstance use disorder: Code(s): F19.90 - Other psychoactive substance use, unspecified, uncomplicated Status: Acute Assessment and Plan: Urine drug screen was positive for cocaine and cannabis Counseled patient cessation of cannabis and cocaine use Atrial flutter Code(s): R00.0 - Tachycardia, unspecified Status: Acute Assessment and Plan: On no history of atrial flutter Could be related to cocaine, anxiety, hypercapnic/hypoxic respiratory failure Start Cardizem drip 5mg/h, heart rate is better controlled but not in the target range Consult district manager for evaluation treatment Egg Producer considers LEIDY/CV which would need to take place with anesthesia because of MATTHEW Cardiology recommend to hold discharge pt and titrate medication for better rate control CHF (congestive heart failure): Code(s): I50.9 - Heart failure, unspecified Status: Acute Assessment and Plan: Euvolemic at this time, continue to monitor Echocardiogram 07/04 1. Complete two-dimensional, color flow and Doppler transthoracic echocardiogram is performed. 2. Study is limited due to tachycardia. 3. The left ventricle is normal in size and systolic function. The left ventricular ejection fraction is visually estimated to be 50-55%. 4. The right ventricle is normal in size and systolic function. 5. There is a small amount of pericardial effusion. Egg Producer recommends to keep patient in patient for management of uncontrolled heart rate. Patient left AMA. The risk of AMA was explained to the patient and patient understood Time Spent with Patient Time attestation: Total time spent providing and/or coordinating discharge services: Exam Narrative: GENERAL: Ill-appearing, in no acute distress. Well-nourished. - EYES: EOMI. Anicteric. - HENT: Moist mucous membranes. - LUNGS: Coarse breath sound bilaterall y, scattered wheezing, tachypnea, - CARDIOVASCULAR: Irregular irregular r hythm, No murmur. No JVD. - ABDOMEN: Soft, non-tender and non-dist ended. No palpable masses. - EXTREMITIES: No edema. Peripheral puls es 2+. Non-tender. - NEUROLOGIC: No focal neurological defi cits. CN II-XII grossly intact. - PSYCHIATRIC: Awake, Alert and oriented x 3. Anxious mood and affect. - SKIN: No rashes or lesions. Warm. - LYMPH: No cervical lymphadenopathy. DS: Data Data Completed and Pending Labs on day of discharge: Labs from last 24 hours 07/05/24 07/04/24 05:14 20:38 Ur L.pneumophila Ag Not detected Mycoplasma pneumon IgM 114 SARS-CoV-2 RNA (RT-PCR) Not detected Preliminary micro results at discharge 07/05/24 15:02 Blood Culture - Preliminary Blood 07/05/24 15:02 Blood Culture - Preliminary Blood 07/03/24 17:20 Blood Culture - Preliminary Blood Staphylococcus epidermidis 07/03/24 17:29 Blood Culture - Preliminary Blood Discharge Plan Discharge Attending physician on discharge: Carol Kingsley Consulting providers: Tam Zamarripa; Venkata Murray; Tomer Alexander Discharging Clinician: Carol Kingsley Anticipated Discharge Date/Time: 07/08/24 11:39 Patient Disposition: Left Against Medical Advice Activity: as tolerated Diet: as tolerated and heart healthy Patient Instructions: Antibiotic Form, Apixaban (By mouth), Heart Failure (GEN), COPD (Chronic Obstructive Pulmonary Disease) (GEN) Patient Language: Malian Follow-up/Referrals: Joe,Alton Last [Primary Care Provider] - (Patient needs to see primary care doctor in 1 week) Discharge Medications: New linezolid 600 mg Tablet 600 mg PO Q12HR Qty: 4 0RF doxycycline hyclate 100 mg Tablet 100 mg PO Q12HR Qty: 4 0RF digoxin 125 mcg (0.125 mg) Tablet 125 mcg PO QAM Qty: 30 0RF cefdinir 300 mg capsule 300 mg PO Q12H Qty: 4 0RF Dulera 200-5 mcg/actuation HFA aerosol inhaler 2 puff inhalation Q12H Qty: 13 1RF Continued albuterol sulfate [Ventolin HFA] 90 mcg/actuation HFA aerosol inhaler 2 puff INHALATION Q4-6H PRN (Reason: Shortness of breath) Eliquis 5 mg tablet 5 mg PO BID aripiprazole 2 mg tablet 2 mg PO DAILY diltiazem HCl 360 mg capsule,extended release 24hr 360 mg PO DAILY furosemide 40 mg tablet 40 mg PO DAILY losartan 50 mg tablet 50 mg PO DAILY Dulera 200-5 mcg/actuation HFA aerosol inhaler 2 puff INHALATION BID Incruse Ellipta 62.5 mcg/actuation blister with device 1 inh INHALATION ONCE budesonide-formoterol [Symbicort] 160-4.5 mcg/actuation HFA aerosol inhaler 2 puff INHALATION Q12H Qty: 1 2RF Date of admission: 07/04/24 09:05 Primary Care Provider: Joe,Shala Admitting Provider: Chhaya Pearson Attending physician on admission: Chhaya Pearsno Condition: Serious
[2024-07-08 10:21] LABS: Hematocrit 38.3 % (42.0-52.0); Mean Corpuscular HGB Conc 31.3 g/dl (32-36); Mean Corpuscular Hemoglobin 31.2 pg (26-34); Mean Corpuscular Volume 99.5 fl (80-100); Mean Platelet Volume 10.5 fl (7.4-10.4); Platelet Count Result 149 k/mm3 (150-375); Red Blood Count 3.85 M/mm3 (4.6-6.20); Red Cell Distribution Width 15.4 % (11.5-14.5); White Blood Count 8.4 K/mm3 (4.5-10.0)
[2024-07-08 10:34] LABS: Anion Gap 8 mmol/L (4-12); Blood Urea Nitrogen 34 mg/dL (9-20); Calcium 8.5 mg/dL (8.4-10.2); Carbon Dioxide 27 mmol/L (22-30); Chloride 104 mmol/L (98-107); Estimated CRCL calculation 69 ml/min; Estimated Glomerular Filt Rate > 60; Glucose 167 mg/dL (65-110); Potassium 3.7 mmol/L (3.4-5.0); Sodium 139 mmol/L (137-145)
--- NOTE | 2024-07-08 11:07 | P.PNCA_ITS ---
Progress Note: A&P Assessment and Plan (1) Atrial flutter: Code(s): I48.92 - Unspecified atrial flutter Status: Acute Assessment and Plan: Atrial flutter with rapid ventricular response on diltiazem drip related with uncontrolled Diltiazem oral CD 360 mg daily DC diltiazem drip Increase digoxin to 0.25 mg daily Apixaban 5 mg b.i.d. (2) CHF (congestive heart failure): Code(s): I50.9 - Heart failure, unspecified Status: Acute Assessment and Plan: Chronic diastolic heart failure currently compensated Continue furosemide 40mg p.o. daily (3) Elevated troponin: Code(s): R79.89 - Other specified abnormal findings of blood chemistry Status: Acute Assessment and Plan: Troponin mildly elevated and flat in the setting of hypoxia and tachycardia. Unlikely that this is related to ACS. (4) Acute exacerbation of chronic obstructive pulmonary disease: Code(s): J44.1 - Chronic obstructive pulmonary disease with (acute) exacerbation Status: Acute Assessment and Plan: Treatment per pulmonology (5) Acute respiratory failure with hypoxia and hypercapnia: Code(s): J96.01 - Acute respiratory failure with hypoxia; J96.02 - Acute respiratory failure with hypercapnia Status: Acute Assessment and Plan: Secondary to above. Improving with treatment of COPD exacerbation Subjective Date/time seen: 07/08/24 11:07 Interval history: No acute events Chronic shortness of breath on oxygen Telemetry atrial fibrillation rate 100 Review of Systems Review of Systems: All systems reviewed & are unremarkable except as noted in HPI and below Exam Const: General: comfortable and no acute distress HENMT: Head: normal to inspection Eyes: General: appearance normal, both eyes and all related structures Pupils: Equal, round and reactive pupils present Neck: Neck: normal visual inspection, supple and no JVD Carotids: normal carotid upstroke Resp: Effort & Inspection: normal respiratory effort Auscultation: diminished lung sounds Cardio: Rate: regular rate Rhythm: abnormal rhythm regularly irregular Heart sounds: S1 normal heart sound present, S2 normal heart sound present and no murmurs GI: Auscultation: normal bowel sounds Skin: General skin exam: normal color Neuro: General: patient oriented x3 Cranial nerves: Yes Equal, round and reactive pupils present Extrem: General: normal to inspection Psych: Appearance: grossly normal Mental Status: mental status grossly normal Other: Disorganized thinking Objective Data Vital Signs Vital Signs: Vital Signs - 24 hr 07/07/24 12:00 07/07/24 12:00 07/07/24 12:00 Temperature Pulse Rate 106 H 106 H Respiratory Rate 24 H Blood Pressure 142/88 H Pulse Oximetry 95 Oxygen Delivery Room Air Oxygen Flow Rate 07/07/24 14:00 07/07/24 14:00 07/07/24 15:50 Temperature 36.3 C L 36.8 C Pulse Rate 90 90 71 Respiratory Rate 22 H 20 Blood Pressure 123/77 127/80 Pulse Oximetry 97 99 Oxygen Delivery Oxygen Flow Rate 07/07/24 16:00 07/07/24 16:00 07/07/24 16:45 Temperature Pulse Rate 111 H 102 H Respiratory Rate Blood Pressure 127/80 Pulse Oximetry Oxygen Delivery Room Air Oxygen Flow Rate 07/07/24 18:00 07/07/24 18:00 07/07/24 18:00 Temperature 36.3 C L Pulse Rate 105 H 93 105 H Respiratory Rate 20 Blood Pressure 124/64 124/60 Pulse Oximetry 90 Oxygen Delivery Oxygen Flow Rate 07/07/24 20:00 07/07/24 20:00 07/07/24 20:00 Temperature 36.6 C Pulse Rate 86 86 100 Respiratory Rate 19 Blood Pressure 154/96 H 154/96 H Pulse Oximetry 95 Oxygen Delivery Oxygen Flow Rate 07/07/24 21:05 07/07/24 22:00 07/07/24 22:00 Temperature Pulse Rate 90 90 Respiratory Rate 18 Blood Pressure 172/92 H 172/92 H Pulse Oximetry 95 99 Oxygen Delivery Nasal Cannula Oxygen Flow Rate 2 07/07/24 22:00 07/07/24 23:52 07/08/24 00:00 Temperature 37.0 C Pulse Rate 86 95 95 Respiratory Rate 19 Blood Pressure 146/77 H 146/77 H Pulse Oximetry 100 Oxygen Delivery Oxygen Flow Rate 07/08/24 00:00 07/08/24 00:25 07/08/24 02:00 Temperature 37.0 C Pulse Rate 101 H 96 Respiratory Rate 19 Blood Pressure 172/94 H Pulse Oximetry 100 95 Oxygen Delivery Nasal Cannula Oxygen Flow Rate 2 07/08/24 02:00 07/08/24 02:00 07/08/24 03:36 Temperature 37.0 C Pulse Rate 96 81 75 Respiratory Rate 18 Blood Pressure 172/94 H 166/92 H Pulse Oximetry 100 Oxygen Delivery Oxygen Flow Rate 07/08/24 04:00 07/08/24 04:00 07/08/24 04:05 Temperature Pulse Rate 75 69 Respiratory Rate Blood Pressure 166/92 H Pulse Oximetry 100 Oxygen Delivery Nasal Cannula Oxygen Flow Rate 2 07/08/24 06:00 07/08/24 06:00 07/08/24 06:00 Temperature 37.0 C Pulse Rate 85 77 85 Respiratory Rate 18 Blood Pressure 143/91 H 143/91 H Pulse Oximetry 94 Oxygen Delivery Oxygen Flow Rate 07/08/24 08:22 07/08/24 09:18 07/08/24 10:09 Temperature 36.6 C 36.4 C L Pulse Rate 107 H 100 92 Respiratory Rate 18 20 Blood Pressure 153/110 H 146/69 H Pulse Oximetry 95 98 Oxygen Delivery Oxygen Flow Rate Intake/Output Intake/Output: Intake & Output 07/05/24 07/06/24 07/07/24 07/08/24 23:59 23:59 23:59 23:59 Intake Total 1963.6 1292.2 1240.1 280 Output Total 2150 4600 2475 3100 Balance -186.4 -3307.8 -1234.9 -2820 Meds/Results Medications: Active Medications Generic Name Dose Route Start Last Admin Trade Name Freq PRN Reason Stop Dose Admin Alprazolam 0.5 mg 07/05/24 13:28 07/07/24 21:04 Alprazolam (*Crx) 0.5 Mg Tablet PO 0.5 mg TID PRN Administration Anxiety Apixaban 5 mg 07/04/24 09:00 07/08/24 09:18 Apixaban 5 Mg Tablet PO 5 mg Q12HR JENNY Administration Aripiprazole 2 mg 07/04/24 09:00 07/08/24 09:21 Aripiprazole 2 Mg Tablet PO 2 mg DAILY JENNY Administration Benzocaine 1 lozenge 07/04/24 09:51 07/07/24 21:05 Benzocaine/Menthol (*Bkc) 18 Ea Lozenge PO 1 lozenge PRN PRN Administration Sore Throat Digoxin 125 mcg 07/06/24 11:05 07/08/24 09:18 Digoxin Tab 125 Mcg Tablet PO 125 mcg QAM JENNY Administration Diltiazem HCl 360 mg 07/04/24 09:00 07/08/24 09:18 Diltiazem Hcl Cd 180 Mg Cap.24hr PO 360 mg QAM JENNY Administration Doxycycline Hyclate 100 mg 07/05/24 14:00 07/08/24 09:18 Doxycycline Hyclate 100 Mg Tablet PO 07/10/24 23:59 100 mg Q12HR JENNY Administration Fluticasone/Umeclidinium/Vilanterol 1 puff 07/06/24 10:05 07/07/24 10:10 Fluticasone/Umeclidin/Vilanter 100-62.5-25 Mcg Ellipta INHALATION Not Given DAILYRT JENNY Furosemide 40 mg 07/06/24 09:00 07/08/24 09:18 Furosemide 40 Mg Tablet PO 40 mg DAILY JENNY Administration Guaifenesin 1,200 mg 07/04/24 21:00 07/08/24 09:18 Guaifenesin 12 Hr 600 Mg Tabcr PO 1,200 mg Q12HR JENNY Administration Diltiazem HCl 100 mg in 100 mls @ 5 mls/hr 07/05/24 08:45 07/08/24 06:00 Cardizem 100 Mg/100 Ml IV CONT 5 mg/hr .Q20H JENNY 5 mls/hr Infusion 5 MG/HR Cefepime HCl 2 gm in 50 mls @ 100 mls/hr 07/05/24 21:00 07/08/24 09:18 Maxipime 2 Gm/Ns 50 Ml IVPB 100 mls/hr Q12H JENNY Administration Ipratropium [place] 0.5 mg 07/06/24 23:59 Ipratropium Br 0.02% Inh Soln 0.5 Mg/2.5 Ml Vial INHALATION Q4HRT PRN Shortness Of Breath Levalbuterol HCl 1.25 mg 07/07/24 00:03 Levalbuterol Neb 1.25 Mg/3 Ml INHALATION Q4HRT PRN Shortness Of Breath Or Wheezing Linezolid 600 mg 07/05/24 21:00 07/08/24 09:18 Linezolid 600 Mg Tablet PO 07/10/24 23:59 600 mg Q12HR JENNY Administration Losartan Potassium 50 mg 07/04/24 09:00 07/08/24 09:18 Losartan Potassium 50 Mg Tablet PO 50 mg DAILY JENNY Administration Radiology Results: ITS Impressions Chest X-Ray 07/03/24 17:59 IMPRESSION: Peribronchial thickening with panlobular emphysematous disease. No focal infiltrate or effusion. Asymmetric density within the right mid to lower lung field for which cross- sectional imaging (noncontrast enhanced CT examination of the chest) is suggested when patient is clinically able. Chest CTA 07/04/24 21:28 IMPRESSION: No pulmonary embolus. No thoracic aortic dissection. Panlobular emphysematous change with additional chronic pulmonary disease. Labs Labs: Laboratory Results - last 24 hr 07/04/24 07/05/24 07/08/24 20:38 05:14 10:15 WBC 8.4 RBC 3.85 L Hgb 12.0 L Hct 38.3 L MCV 99.5 MCH 31.2 MCHC 31.3 L RDW 15.4 H Plt Count 149 L MPV 10.5 H Sodium 139 Potassium 3.7 Chloride 104 Carbon Dioxide 27 Anion Gap 8 BUN 34 H Creatinine 1.09 Estim Creat Clear Calc 69 Estimated GFR > 60 Glucose 167 H Calcium 8.5 Ur L.pneumophila Ag Not detected Mycoplasma pneumon IgM 114 SARS-CoV-2 RNA (RT-PCR) Not detected
[2024-07-08 14:43] LABS: Adenovirus DNA Not Detected (Not Detected); Chlamydophila pneumoniae Not Detected (Not Detected); Coronavirus 229E Not Detected (Not Detected); Coronavirus HKU1 Not Detected (Not Detected); Coronavirus NL63 Not Detected (Not Detected); Coronavirus OC43 Not Detected (Not Detected); Human Metapneumovirus Not Detected (Not Detected); Human Parainfluenza Virus 1 Not Detected (Not Detected); Human Parainfluenza Virus 2 Not Detected (Not Detected); Human Parainfluenza Virus 3 Not Detected (Not Detected); Human Parainfluenza Virus 4 Not Detected (Not Detected); Human RSV B Not Detected (Not Detected); Influenza A Not Detected (Not Detected); Influenza B Not Detected (Not Detected); Mycoplasma pneumoniae Not Detected (Not Detected); Rhinovirus/Enterovirus Not Detected (Not Detected)
== END 2024-07-08 14:53 | disposition left against medical advice (07) | DRG 189 ==
LOC: ANHED 20:05 → ANHICU 20:52 → ANHIMU 07-04 12:12
PROVIDERS: Internal Medicine; Internal Medicine Pulmonary Disease; Admitting Provider Internal Medicine; Emergency Provider Preventive Medicine Aerospace Medicine; PCP Internal Medicine Infectious Disease; Visit Provider Hospitalist
DX: J96.21 Acute and chronic respiratory failure with hypoxia (principal); I50.33 Acute on chronic diastolic (congestive) heart failure; J44.1 Chronic obstructive pulmonary disease with (acute) exacerbation; R78.81 Bacteremia; I48.92 Unspecified atrial flutter; J96.22 Acute and chronic respiratory failure with hypercapnia; I50.9 Heart failure, unspecified; D53.1 Other megaloblastic anemias, not elsewhere classified; R79.89 Other specified abnormal findings of blood chemistry; F31.9 Bipolar disorder, unspecified; F17.210 Nicotine dependence, cigarettes, uncomplicated; F14.90 Cocaine use, unspecified, uncomplicated; F12.90 Cannabis use, unspecified, uncomplicated; Z20.822 Contact with and (suspected) exposure to COVID-19; Z22.322 Carrier or suspected carrier of Methicillin resistant Staphylococcus aureus; Z99.81 Dependence on supplemental oxygen; Z79.01 Long term (current) use of anticoagulants
CPT/HCPCS: 36415; 36600; 71045; 71275; 80048; 80053; 80307; 81001; 82103; 82104; 82375; 82805; 82948; 83050; 83605; 83735; 83880; 84100; 84484; 85018; 85025; 85027; 85610; 85730; 86140; 86738; 87040; 87181; 87449; 87633; 87637; 87641; 93005; 93306; 94002; 94640; 94762; 96361; 96365; 96366; 96367; 96375; 96376; 99291; A9270; G0378; J0456; J0612; J0692; J1160; J1815; J1940; J2919; J3370; J3475; J7030; J7512; Q9967

== ENCOUNTER 2025-01-09 12:59 | Inpatient (IN) | payer MEDICARE, SELFPAY ==
[2025-01-09] VITALS (32 sets, daily range): BP systolic 87–145; BP diastolic 48–96; PULSE 65–113; RESP 9–25; TEMP 37.3–37.9; O2SAT 68–98; BMI 30.5
--- NOTE | ~2025-01-09 | XR_ITS ---
XR chest 1V portable 01/11/2025 06:04 Indication: Respiratory failure. Hypoxia. Procedure: AP portable chest Comparison: Comparison to multiple prior studies sequentially, with oldest reviewed study dated 01/09. Findings: Right IJ central line tip in SVC. Cardiomegaly. Persistent infiltrates of the right mid and bilateral lower lungs. Small right pleural effusion. No pneumothorax. Endotracheal tube tip approxim ately 6 cm above the nadya. NG tube in the stomach. No pneumothorax. Impression: 1: Bilateral airspace disease without significant change. Differential diagnosis includes edema and p neumonia. Reviewed, dictated and finalized at location A. Impression: 1: Bilateral airspace disease without significant change. Differential diagnosi s includes edema and pneumonia.
--- NOTE | ~2025-01-09 | XR_ITS ---
XR chest 1V portable 01/10/2025 05:38 Indication: Acute hypoxic respiratory failure Procedure: AP portable chest Comparison: Comparison to multiple prior studies sequentially, with oldest reviewed study dated 08/2024. Findings: Borderline heart size. Central line tip in the SVC. There is extensive right-sided airspace disease with small right pleural effusion. No significant change allowing for technique compared wit h 01/09/2025. No pneumothorax. Impression: 1: Stable asymmetric right-sided airspace disease, most likely pneumonia versus asymmetric edema. 2: Small right pleural effusion. Reviewed, dictated and finalized at location A. Impression: 1: Stable asymmetric right-sided airspace disease, most likely pneumonia versus asymmetric edema. 2: Small right pleural effusion.
--- NOTE | ~2025-01-09 | XR_ITS ---
Portable chest x-ray Comparison: 01/12/2025 Clinical History: Respiratory failure Findings: Endotracheal tube, NG tube, and right IJ line are in place. Small right pleural effusion p resent. Mild right basilar atelectasis/edema. Cardiomediastinal silhouette is stable. Bones and soft tissues are unremarkable. Impression: Small right pleural effusion with probable right basilar pulmonary edema/atelectasis. Correlate clini bret for pneumonia. Support tubes, as above. Reviewed, dictated and finalized at location . Impression: Small right pleural effusion with probable right basilar pulmonary edema/atelec tasis. Correlate clinically for pneumonia. Support tubes, as above.
--- NOTE | ~2025-01-09 | CT_ITS ---
EXAMINATION: CT chest abdomen pelvis wo con DATE: 01/15/2025 9:42 CDT INDICATION: Drop in hemoglobin. Rule out hematoma. TECHNIQUE: Computed tomography (CT) of the chest, abdomen, and pelvis was performed without intravenous contrast. The dose-length product was 1789.26 mGy-cm. COMPARISON: CTA chest abdomen and pelvis 01/09/2025 FINDINGS: CHEST CT: Endotracheal tube is present with its tip 3 cm above the nadya. Nasogastric tube is present with its tip in the body of the stomach. Heart size is unchanged. There are coronary artery calcifications. Thoracic aorta is not aneurysmal. Mild atherosclerotic disease in the thoracic aorta. No enlarged medi astinal or hilar lymph nodes. Small pericardial effusion similar to the prior study. Small right-sided pleural effusion. Tiny left-sided pleural effusion. There is a stable centrilobular emphysema. There is a 1.6 cm subpleural nodular density in the right lower lobe. A PET/CT and/or biopsy is recommended. Interval decrease in the size of the airspace opacities scattered throughout the right lung. A moderate sized consolidation persists in the right lower lobe. Small patchy opacities in the left lower lobe. ABDOMEN/PELVIS CT: The liver, spleen, adrenal glands and pancreas are unremarkable. Gallbladder is unremarkable. Bilateral renal cysts. Redemonstration of the 1.8 cm subtle hypodense right renal mass. A renal mass MRI is recommended. Abdominal aorta is partially calcified but is not aneurysmal. Small amount of fat stranding and fluid in the abdomen. No enlarged abdominal lymph nodes identified. Pelvis: Fernández catheter in the mildly distended bladder. Small fat-containing bilateral inguinal hernias. No dilated bowel loops. No enlarged pelvic lymph nodes identified. Small amount of fluid in the pelvis. Extensive anasarca throughout the chest, abdomen and pelvis. Osseous structures are similar to the prior study. IMPRESSION: 1. There is a 1.6 cm subpleural spiculated pulmonary nodule in the right lower lobe. A PET/CT and/or biopsy is recommended. 2.Interval decrease in the size of the airspace opacities scattered throughout the right lung. 3.A moderate sized consolidation persists in the right lower lobe. Recommend follow-up to resolution. 4.Small patchy opacities in the left lower lobe. 5.Small right-sided pleural effusion. 6.Tiny left-sided pleural effusion. 7.There is a stable centrilobular emphysema. 8.Redemonstration of the 1.8 cm subtle hypodense right renal mass. A renal mass MRI is recommended. 9. Small amount of fluid and fat saturated scattered throughout the abdomen and pelvis. 10. Extensive anasarca throughout the chest, abdomen and pelvis. Reviewed, dictated and finalized at location A. IMPRESSION: 1. There is a 1.6 cm subpleural spiculated pulmonary nodule in the right lower lobe. A PET/CT and/or biopsy is recommended. 2.Interval decrease in the size of the airspace opacities scattered throughout the right lung. 3.A moderate sized consolidation persists in the right lower lobe. Recommend fo llow-up to resolution. 4.Small patchy opacities in the left lower lobe. 5.Small right-sided pleural effusion. 6.Tiny left-sided pleural effusion. 7.There is a stable centrilobular emphysema. 8.Redemonstration of the 1.8 cm subtle hypodense right renal mass. A renal mass MRI is recommended. 9. Small amount of fluid and fat saturated scattered throughout the abdomen and pelvis. 10. Extensive anasarca throughout the chest, abdomen and pelvis.
--- NOTE | ~2025-01-09 | XR_ITS ---
Portable chest x-ray Comparison: 01/14/2025 Clinical History: Respiratory failure Findings: Endotracheal tube, NG tube, and right IJ line are in place. There are small bilateral pleural effusions with bibasilar pulmonary edema. Cardiomediastinal silhouette is stable. Bones and soft tissues are unremarkable. Impression: Small bilateral pleural effusions with moderate bibasilar pulmonary edema. Support tubes, as above. Reviewed, dictated and finalized at location . Impression: Small bilateral pleural effusions with moderate bibasilar pulmonary edema. Support tubes, as above.
--- NOTE | ~2025-01-09 | XR_ITS ---
XR abdomen gastric tube insert INDICATION: Evaluate NG tube position. TECHNIQUE: Limited KUB perform for evaluating NG tube . COMPARISON: No prior studies for comparison. FINDINGS: NG tube tip in the stomach. Visualized bowel gas pattern is nonspecific. IMPRESSION: 1: NG tube tip in the stomach. Reviewed, dictated and finalized at location A.
--- NOTE | ~2025-01-09 | XR_ITS ---
EXAMINATION: XR chest 1V portable DATE: 01/12/2025 06:17 INDICATION: Acute hypoxic respiratory failure TECHNIQUE: frontal view of the chest was obtained. COMPARISON: Chest radiograph dated 01/11/2025 FINDINGS: Endotracheal tube tip 7.3 cm above the nadya. Right internal jugular central venous catheter with di stal tip at the caudal superior vena cava. Nasogastric tube extends into the stomach with distal tip beyond the inferior margin of the field of imaging. Gradient of hazy basilar predominant airspace opacities in the right mid to lower lung zone with blun ting at the costophrenic angle consistent with small right pleural effusion and associated basilar at electasis and/or pneumonia. Left lung is clear. No pneumothorax or left-sided pleural effusion. Heart size is normal. IMPRESSION: 1. Endotracheal tube tip 7.3 cm above the nadya. Consider advancement by 5 cm. 2. Persistent small right pleural effusion with right basilar atelectasis and/or pneumonia. Reviewed, dictated and finalized at location A. IMPRESSION: 1. Endotracheal tube tip 7.3 cm above the nadya. Consider advancement by 5 cm. 2. Persistent small right pleural effusion with right basilar atelectasis and/o r pneumonia.
--- NOTE | ~2025-01-09 | CT_ITS ---
EXAMINATION: CT brain wo con DATE: 01/09/2025 13:53 INDICATION: Found down TECHNIQUE: Computed tomography (CT) of the head was performed without intravenous contrast. The dose- length product was 681.00 mGy-cm. COMPARISON: None FINDINGS: No acute intrarenal hemorrhage. No mass effect. No midline shift. No hydrocephalus. Small low density regions scattered throughout the white matter which most likely represent chronic i schemic white matter change. No calvarial fracture. Minimal opacification of the mastoid air cells. Visualized nasal sinuses are clear. IMPRESSION: 1. No acute intracranial hemorrhage. No mass effect. 2. Probable chronic ischemic white matter change. Reviewed, dictated and finalized at location A.
--- NOTE | ~2025-01-09 | XR_ITS ---
EXAMINATION: XR chest 1V portable DATE: 01/14/2025 05:43 INDICATION: Acute hypoxic respiratory failure TECHNIQUE: frontal view of the chest was obtained. COMPARISON: Chest radiograph dated 01/13/2025 FINDINGS: Endotracheal tube tip 7.9 cm above the nadya. Nasogastric tube extends below the left hemidiaphragm with distal tip collimated off the study. Right internal jugular central venous catheter with distal tip at the midsuperior vena cava. Again seen is a basilar predominant gradient of hazy airspace opacities throughout the right lung con sistent with small posterior layering pleural effusion with associated atelectasis and/or pneumonia i n the lower lung zone. Mild streaky left basilar atelectasis. No pneumothorax or left-sided pleural e ffusion. Heart size is normal with some rightward shift of the heart and mediastinum consistent with some secondary volume loss in right lung. IMPRESSION: 1. No significant change in a likely small right pleural effusion with atelectasis and/or pneumonia i n the right lower lung zone. Reviewed, dictated and finalized at location A. IMPRESSION: 1. No significant change in a likely small right pleural effusion with atelecta sis and/or pneumonia in the right lower lung zone.
--- NOTE | ~2025-01-09 | XR_ITS ---
Upright portable view of the abdomen Clinical history: NG tube placement Findings: NG tube in satisfactory position, with side-port just below the diaphragm. Probable dilated small bowel loops present, suggestive of small bowel obstruction. No definite free air. No abnormal mass lesion or calcification is seen. Osseous structures are intact. Impression: NG tube in satisfactory position. Suspected small bowel obstruction. Reviewed, dictated and finalized at [facility]. Impression: NG tube in satisfactory position. Suspected small bowel obstruction.
--- NOTE | ~2025-01-09 | XR_ITS ---
CHEST RADIOGRAPH CLINICAL HISTORY: hypoxia . COMPARISON: 01/09/2025, performed approximately 2 hours earlier TECHNIQUE: Single portable view of the chest. 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 Of note, on the CT examination performed approximately 2 hours earlier, dependent fluid attenuation f ield of the right mainstem bronchus, rather than dense soft tissue attenuation (as one would see with a large endobronchial mass), possibly representing a mucous plug with resulting atelectasis of the r ight lung. Endotracheal tube is identified with its tip projecting approximately 5.2cm above the base of the car joshua. Orogastric tube identified with its tip extending below the left hemidiaphragm, presumably within the stomach. The remainder of the cardiomediastinal silhouette is otherwise unremarkable, although the shift of th e cardiomediastinal silhouette to the patient's right with significant atelectasis, is possibly causi ng mass effect and diminishing the venous return, for which clinical correlation is needed regarding patient's blood pressure. In addition, the rounded focus of air attenuation on the CT examination within the right hemithorax c orresponds to a large subpleural bleb seen on previous chest CT dated 07/04/2024. Redemonstration of right-sided pleural effusion, increasing from previous examination. The left hemithorax is clear. 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 Shift of the mediastinal silhouette to the patient's right secondary to atelectasis within the right hemithorax, likely from a mucous plug in the right mainstem bronchus, as detailed above. Lines and tubes are unchanged and in good position. These findings were given to Dr. Zamarripa at 3:45 PM on 01/09/2025 Reviewed, dictated and finalized at location A. 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 Shift of the mediastinal silhouette to the patient's right secondary to atelect asis within the right hemithorax, likely from a mucous plug in the right mainst em bronchus, as detailed above. Lines and tubes are unchanged and in good position. These findings were given to Dr. Zamarripa at 3:45 PM on 01/09/2025
--- NOTE | ~2025-01-09 | XR_ITS ---
EXAMINATION: XR chest ET placement DATE: 01/09/2025 13:29 INDICATION: Tracheal tube placement TECHNIQUE: frontal view of the chest was obtained. COMPARISON: Chest CT dated 07/04/2024 FINDINGS: Endotracheal tube tip 4.8 cm above the nadya. Volume loss in right hemithorax with rightward shift o f the heart and mediastinum. Small bilateral pleural effusions. Opacities in the bilateral lung bases and additional more patchy airspace opacities throughout the right lung. Hyperexpansion of the left lung with increased lucency in the left upper lung zone and some associated architectural distortion consistent with emphysema which is better appreciated on prior CT. No pneumothorax. Nasogastric tube tip in proximal side port in the body the stomach. IMPRESSION: 1. Endotracheal tube tip 4.8 cm above the nadya. 2. Small bilateral pleural effusions with bibasilar opacities which could represent atelectasis or pn eumonia. 3. Hyperexpansion of the left lung consistent with emphysema and volume loss in the right lung with p atchy airspace opacities which could represent additional atelectasis or pneumonia. Reviewed, dictated and finalized at location A. IMPRESSION: 1. Endotracheal tube tip 4.8 cm above the nadya. 2. Small bilateral pleural effusions with bibasilar opacities which could repre sent atelectasis or pneumonia. 3. Hyperexpansion of the left lung consistent with emphysema and volume loss in the right lung with patchy airspace opacities which could represent additional atelectasis or pneumonia.
--- NOTE | ~2025-01-09 | CT_ITS ---
EXAMINATION: CTA chest PE abdomen pel DATE: 01/09/2025 14:00 CDT INDICATION: Loss of consciousness. Found unresponsive. TECHNIQUE: Computed tomographic angiography (CTA) of the chest, abdomen, and pelvis was performed \wi th 100 mL Omnipaque-350 intravenous contrast. The dose-length product was 1836.62 mGy-cm. Maximum int ensity projection 3D-reconstructions of the aorta and other arteries were constructed by the roxanne saavedra on a separate workstation. COMPARISON: CT dated 07/04/2024. FINDINGS: CHEST CTA: Heart size upper normal. Small pericardial effusion. Study is technically adequate without evidence f or pulmonary embolism. Enlarged pulmonary arteries consistent with pulmonary hypertension. Endotrache al tube and NG tube are present. There is right upper and lower lobe airspace disease consistent with pneumonia. Moderate right pleural effusion. Mediastinal shift to the right consistent with volume lo ss. There is emphysema. No pneumothorax. No thoracic lymphadenopathy. Small left pleural effusion. ABDOMEN AND PELVIS CTA: The liver, spleen, pancreas, adrenal glands are unremarkable. There are bilateral renal cysts. There is a subtle hypodense 1.8 x 1.3 cm right renal mass. Possible second 1 cm intermediate density mass o f the right kidney. Cannot exclude renal cell carcinoma. There are bilateral renal cysts. Nonobstruct federica bowel gas pattern. Fernández catheter present in the bladder. No free air or free fluid. There is mod erate disc narrowing and endplate degenerative change at L5-S1. No acute fracture or traumatic malali gnment. IMPRESSION: 1. Extensive airspace disease of the right upper and lower lobe, consistent with pneumonia. 2: Bilateral pleural effusions, right greater than left. 3: Hypodense right renal masses. Cannot exclude renal cell carcinoma. Consider correlation with MRI a bdomen with contrast. 4: Small pericardial effusion. Reviewed, dictated and finalized at location A. IMPRESSION: 1. Extensive airspace disease of the right upper and lower lobe, consistent wit h pneumonia. 2: Bilateral pleural effusions, right greater than left. 3: Hypodense right renal masses. Cannot exclude renal cell carcinoma. Consider correlation with MRI abdomen with contrast. 4: Small pericardial effusion.
--- NOTE | ~2025-01-09 | XR_ITS ---
Portable chest x-ray Comparison: 01/15/2025 Clinical History: Respiratory failure Findings: Endotracheal tube, NG tube, and right IJ line are in place. Small bilateral pleural effusions are present with mild bibasilar pulmonary edema, right worse than left. Cardiomediastinal silhouette is stable. Bones and soft tissues are unremarkable. Impression: Small bilateral pleural effusions with mild bibasilar pulmonary edema, right worse than left. Support tubes, as above. Reviewed, dictated and finalized at location . Impression: Small bilateral pleural effusions with mild bibasilar pulmonary edema, right wo rse than left. Support tubes, as above.
--- NOTE | ~2025-01-09 | XR_ITS ---
XR chest 1V portable 01/19/2025 05:27 Indication: Respiratory failure Procedure: AP portable chest Comparison: Comparison to multiple prior studies sequentially, with oldest reviewed study dated 01/15/2025. Findings: Borderline heart size. Bilateral airspace disease is present. Layering right pleural effusion. Endotracheal tube tip 7.6 cm above the nadya. NG tube passes into the stomach. Right IJ central line tip in the SVC. No pneumothorax. Impression: 1: Bilateral airspace disease may represent edema or pneumonia. 2: Right pleural effusion. Reviewed, dictated and finalized at location O. Impression: 1: Bilateral airspace disease may represent edema or pneumonia. 2: Right pleural effusion.
--- NOTE | ~2025-01-09 | XR_ITS ---
EXAMINATION: XR chest 1V portable Exam Date/Time: 01/09/2025 17:00 CDT HISTORY: post bronch Comparison: Same date at 3:32 PM. RESULT: Lines, tubes, and devices: New right IJ central line terminating in the distal SVC. Stable endotrach eal tube terminating 5.3 cm above the nadya. Subdiaphragmatic NG tube. Lungs and pleura: Improved aeration in the right upper and midlung. Persistent right mid and lower s egmental airspace disease. Mild right costophrenic angle blunting. Cardiomediastinal silhouette: Stable. Other: No acute osseous or upper abdominal finding. IMPRESSION: New right IJ central line, in good position. Stable endotracheal tube. Improved right upper and midlu ng aeration, with segmental mid and lower right lung airspace disease and likely small right pleural effusion. Reviewed, dictated and finalized at location K. IMPRESSION: New right IJ central line, in good position. Stable endotracheal tube. Improved right upper and midlung aeration, with segmental mid and lower right lung airs pace disease and likely small right pleural effusion.
--- NOTE | ~2025-01-09 | US_ITS ---
EXAM: RENAL ULTRASOUND HISTORY: Acute kidney injury rule out hydronephrosis COMPARISON: Reference is made to a CTA examination of the chest abdomen and pelvis performed 5 hours earlier FINDINGS: RIGHT KIDNEY: 12.4 x 5.6 x 5.7 cm. A rounded focus of decreased echogenicity is identified within the interpolar region of the right kid aubrie measuring 19 x 12 x 20 mm. No increased vascularity is identified. Ultrasound is unable to reliably detect cancers smaller than 3 cm, for which contrast enhanced CT or MRI is recommended, with renal mass protocol. No hydronephrosis or bulky renal calculi. LEFT KIDNEY: 10.1 x 5.5 x 4.6 cm No hydronephrosis or renal calculi. The parenchyma of the left kidney is increased in echogenicity. Multiple rounded avascular anechoic foci are present within the left kidney. The largest measuring 16 mm in greatest dimension. BLADDER: Decompressed with a Fernández catheter, limiting its evaluation. IMPRESSION: No hydronephrosis or renal calculi. Indeterminate focus within the interpolar region of the right kidney, for which contrast enhanced CT or MRI (with renal mass protocol) is suggested for further evaluation. Reviewed, dictated and finalized at location A. IMPRESSION: No hydronephrosis or renal calculi. Indeterminate focus within the interpolar region of the right kidney, for which contrast enhanced CT or MRI (with renal mass protocol) is suggested for furthe r evaluation.
--- NOTE | ~2025-01-09 | XR_ITS ---
Portable chest x-ray Comparison: 01/16/2025 Clinical History: Respiratory failure Findings: Endotracheal tube, NG tube, and right IJ line are in place. Small right pleural effusion present. Cardiomediastinal silhouette is stable. Bones and soft tissues are unremarkable. Impression: Small right pleural effusion. Support tubes, as above. Reviewed, dictated and finalized at location . Impression: Small right pleural effusion. Support tubes, as above.
--- NOTE | ~2025-01-09 | CT_ITS ---
EXAMINATION: CT chest abdomen pelvis wo con DATE: 01/18/2025 10:04 CDT INDICATION: Respiratory failure. Bowel obstruction rule out TECHNIQUE: Computed tomography (CT) of the chest, abdomen, and pelvis was performed without intravenous contrast. The dose-length product was 1976.49 mGy-cm. COMPARISON: 01/15/2025 FINDINGS: CHEST CT: Endotracheal tube is present with its tip 2.5 cm above the nadya. Nasogastric tube is present with its tip in the body the stomach. Heart size is unchanged. There are coronary artery calcifications. Thoracic aorta is not aneurysmal. Mild atherosclerotic disease in the thoracic aorta. No enlarged hilar mediastinal lymph nodes. Small pericardial effusion similar to prior studies. Small right- sided pleural effusion, unchanged. Tiny left-sided pleural effusion, unchanged. Stable centrilobular emphysema. Stable 1.6 cm subpleural nodular density in the right lower lobe. A PET/CT and/or biopsy is recommended. Grossly stable airspace opacities in the right lung. A moderate size consolidation persists in the right lower lobe, unchanged. Small opacities in the left lower lobe similar to the prior study. ABDOMEN/PELVIS CT: The liver, spleen, adrenal glands and pancreas unremarkable. Gallbladder is unremarkable. Bilateral renal cysts. Redemonstration of the 1.8 cm subtle hypodense Right renal mass. A renal mass MRI is recommended. Abdominal aorta is partially calcified is not aneurysmal. Small amount of fat stranding of fluid in the abdomen. No enlarged abdominal lymph nodes. Fernández catheter in the mildly distended bladder. Small amount of nondependent air in the bladder possibly due to recent instrumentation or cystitis. Small fat-containing bilateral inguinal hernias. No enlarged pelvic lymph nodes identified. Small amount of fluid in the pelvis. Extensive anasarca throughout the chest, abdomen and pelvis. Osseous structures are similar to the prior study. There is a possible rectal tube. Correlate clinically. There are a few distended small bowel loops. No dilated large bowel loops. IMPRESSION: 1. There are a few distended small bowel loops which may be due to an ileus or a developing small bowel obstruction. Follow-up is recommended. 2. Fernández catheter in the mildly distended bladder. Small amount of new nondependent air in the bladder possibly due to recent instrumentation or cystitis 3. Otherwise, the appearance of the abdomen and pelvis is similar to the CT study from 01/15/2025. 4. Grossly stable appearance of the chest as compared to the study from 01/15/2025 Reviewed, dictated and finalized at location Q. IMPRESSION: 1. There are a few distended small bowel loops which may be due to an ileus or a developing small bowel obstruction. Follow-up is recommended. 2. Fernández catheter in the mildly distended bladder. Small amount of new nondepen dent air in the bladder possibly due to recent instrumentation or cystitis 3. Otherwise, the appearance of the abdomen and pelvis is similar to the CT kenrick dy from 01/15/2025. 4. Grossly stable appearance of the chest as compared to the study from 01/16/20 25
--- NOTE | ~2025-01-09 | XR_ITS ---
Portable chest x-ray Comparison: 01/17/2025 Clinical History: Respiratory failure Findings: Endotracheal tube, NG tube, and right IJ line are in place. Distal tip left side port of the NG tube are poorly delineated. Small right pleural effusion present with probable right basilar pulmonary edema/atelectasis. Cardiomediastinal silhouette is stable. Bones and soft tissues are unremarkable. Impression: Normal right pleural effusion and probable right basilar pulmonary edema/atelectasis. Support tubes, as above. Distal tip of NG tube is not well delineated, and the side-port may be in the distal esophagus. Consider abdominal radiograph for advancement of NG tube. Reviewed, dictated and finalized at location . Impression: Normal right pleural effusion and probable right basilar pulmonary edema/atelec tasis. Support tubes, as above. Distal tip of NG tube is not well delineated, and the side-port may be in the distal esophagus. Consider abdominal radiograph for adv ancement of NG tube.
--- NOTE | ~2025-01-09 | US_ITS ---
EXAM: ABDOMEN ULTRASOUND HISTORY: Transaminitis COMPARISON: Reference is made to a CT examination chest abdomen and pelvis performed 5 hours earlier FINDINGS: LIVER: The liver is unremarkable in echogenicity and increased in size measuring 23 cm in longitudina l dimension. The portal vein is patent, demonstrating phasic hepatopedal flow although possibly artifactual in a p atient with respiratory rate in the mid to high 20s. Decreased portal vein peak systolic velocity in a patient with portal vein distention (such as in thi s patient) is consistent with portal hypertension. GALLBLADDER: No discrete stones are identified within the gallbladder, which is distended and otherwi se unremarkable. BILE DUCTS: Common bile duct measures 5mm. PANCREAS: Limited evaluation of the pancreas secondary to overlying bowel gas IMPRESSION: Limited evaluation of the pancreas secondary to overlying bowel gas Hepatomegaly with additional findings of portal hypertension, as detailed above. Reviewed, dictated and finalized at location A. IMPRESSION: Limited evaluation of the pancreas secondary to overlying bowel gas Hepatomegaly with additional findings of portal hypertension, as detailed above .
--- NOTE | 2025-01-09 13:01 | PC.NURSE ---
2 Narcan given IVP per [facility] EDP at bedside. Resp at bedside and prepping for intubation with 20 etomidate and 100 rocuronium per [facility].
--- NOTE | 2025-01-09 13:03 | PC.NURSE ---
BS 126
--- NOTE | 2025-01-09 13:06 | PC.NURSE ---
Pt given 20 etiomidate IVP, [address] [facility] [address] Cardoza at bedside for intubation. Intubating pt at this time, pt on tele monitor.
--- NOTE | 2025-01-09 13:08 | PC.NURSE ---
+ color change, bilateral breath sounds, equal chest rise and fall, 7.5 tube, 25 at the lip
[2025-01-09] MEDS: NALOXONE HCL INJ 2 MG/2 ML AMP 4 MG (13:10)
--- NOTE | 2025-01-09 13:11 | ECG_ITS ---
Test Date: 2025-01-09 13:11:00 Measurements Intervals [place] Rate: 95 P: 0 SD: 0 QRS: 79 QRSD: 105 T: 72 QT: 346 QTc: 436 Interpretive Statements SINUS RHYTHM WITH FREQUENT ATRIAL AND VENTRICULAR PREMATURE COMPLEXES INCOMPLETE RIGHT BUNDLE BRANCH BLOCK LOW QRS VOLTAGE IN LIMB LEADS ABNORMAL ECG Compared to ECG 07/03/2024 16:59:51 Atrial flutter no longer present Electronically Signed On 01-09-2025 14:33:32 CDT by Blake Mathis D.O.
--- OUTSIDE RECORDS SUMMARY | 2025-01-09 13:12 | XMS_ITS | Clinical Summary ---
Author Organization [facility] Address [address] [place] [address] Care Team Providers Care Crossing Tender Name Role Phone Shala Diaz MD Primary Care Provider Ben Lindsay MD Unavailable Source Comments [facility],non-owned Affiliates and Associated Physician Practices is amultiple site organization consisting of ambulatory clinics and hospital sitesin [place], [place], [place] and [place]. This disclosure is being madepursuant to the Care Everywhere program and may not contain all information available regarding this patient. Last updated 18.[facility] Allergies Active Allergy Reactions Criticality Noted Date Comments Piroxicam Other High 12/17/2013 Ulcer Other reaction(s): Other Ulcer Medications * Be aware that medications may not be up to date on this document. Alwaysverify current medications with the patient. albuterol HFA (VENTOLIN HFA) 108 (90 Base) MCG/ACT inhaler Inhale 2 puffs by mouth as needed 7 Active amLODIPine (NORVASC) 10 MG tablet Take 10 mg by mouth once daily Active budesonide-for moterol (SYMBICORT) 160-4.5 MCG/ACT inhaler Inhale 2 puffs by mouth once daily Active furosemide (LASIX) 40 MG tablet Take 40 mg by mouth once daily 0 Active ibuprofen (MOTRIN) 400 MG tablet Take 400 mg by mouth 2 times daily 0 Active INCRUSE ELLIPTA 62.5 MCG/INH inhaler Inhale 1 puff by mouth once daily 0 Active cyanocobalamin (VITAMIN B-12) 1000 MCG tabletIndicati ons:Low serum vitamin B12 Take 1 tablet by mouth once daily 100 tablet 0 Active buPROPion XL 24hr (WELLBUTRIN-XL ) 300 MG tablet Take 300 mg by mouth 3 times daily 1 Active losartan (COZAAR) 25 MG tablet Take 25 mg by mouth once daily 1 Active EQ Aspirin Adult Low Dose 81 MG tablet Take 1 (one) tablet by mouth once daily 3 Active atorvastatin (Lipitor) 80 MG tablet Take 1 (one) tablet by mouth once daily 3 Active buPROPion HCl ER, XL, 450 MG TAKE 1 BY MOUTH ONCE DAILY 3 Active buPROPion XL 24hr (Wellbutrin-XL ) 150 MG tablet Active clopidogrel (plaVIX) 75 MG tablet Take 1 (one) tablet by mouth once daily 2 Active cyclobenzaprin e (Flexeril) 10 MG tablet TAKE 1 TABLET BY MOUTH THREE TIMES DAILY NEEDED FOR 14 DAYS Active Trulicity 0.75 MG/0.5ML injection INJECT 1 SYRINGE SUBCUTANEOUSLY ONCE A WEEK 3 Active FLUoxetine (PROzac) 20 MG capsule 4 capsules Orally Once a day for 30 days Active gabapentin (Neurontin) 600 MG tablet 1 tablet Orally Three times a day for 30 days Active ketoconazole (Nizoral) 2 % shampoo APPLY TOPICALLY TO THE AFFECTED AREA(S) LATHER, LEAVE IN PLACE FOR 5 MINUTES AND THEN RINSE OFF WITH WATER ONCE DAILY 2 Active Viagra 100 MG tablet Take 1 TABLET BY MOUTH 1 HOUR PRIOR TO SEXUAL ACTIVITY DIRECTED, NOT TO EXCEED 1 IN 24 HOURS. 3 Active topiramate (Topamax) 200 MG tablet Take [...] including calling Suicide Hotline ( ) or 562. Follow up in if symptoms worsen or [...] worsen or fail to improve Major depressive disorder, single episode, moder ate 05/20/2021 06/06/2023 Overview (06/06/2023): Last Assessment & [...] including calling Suicide Hotline ( ) or 609. Follow up in if symptoms worsen or [...] stable Follow up in: three months Immunizations Immunization Administration Dates Next Due INFLUENZA VACCINE, TRIV. [...] at Not on file Legal Sex Male 4:19 PM CDT Gender Identity Not on file Sexual Orientation Not on file Last Filed Vital Signs Vital Sign Reading Time Taken Comments Blood Pressure 123/80 02/13/2021 3:53 PM CDT Pulse 90 02/13/2021 3:53 PM CDT Temperature 36.4 C (97.6 F) 09/12/2020 9:07 AM CDT Respiratory Rate 13 08/27/2020 4:30 PM CDT Oxygen Saturation 93% 08/27/2020 5:16 PM CDT Inhaled Oxygen Concentration - - Weight 139.7 kg (308 lb) 02/13/2021 3:53 PM CDT Height 185.4 cm (6' 1) 02/13/2021 3:53 PM CDT Body Mass Index 40.64 02/13/2021 3:53 PM CDT Plan of Treatment Health Maintenance Due Date Last Done Comments COLON MONITORING 1958 COLONOSCOPY - COLON CA SCREENING 1958 CT COLONOGRAPHY - COLON CA SCREENING 1958 FIT - COLON CA SCREENING 1958 FLEX SIG - COLON CA SCREENING 1958 HEPATITIS C SCREENING 03/06/1976 PNEUMOCOCCAL VACCINE 50+ (1 of 2 - PCV) 1977 ZOSTER VACCINE (1 of 2) 2008 Respiratory Syncytial Virus (RSV) Vaccine Pt: or over 60 yrs (1 - Risk 60-74 years 1-dose series) 2018 AAA SCREENING 2023 COVID-19 VACCINE (2 - season) 2024 09/11/2020 MEDICARE AWV CALENDAR YEAR 2024 INFLUENZA VACCINE (#1) 2025 , 02/12/2020, 06/23/2019, Additional history exists COLOGUARD (AGES 45-75) - COLON CA SCREENING 04/07/2026 04/07/2023, 06/18/2019 Colorectal Cancer Screening 04/07/2026 DTAP/TDAP/TD VACCINES (2 - Td or Tdap) 04/25/2027 04/25/2017 HEPATITIS B VACCINE Aged Out No longe r eligible based on patient's age to complete this topic HIB VACCINE Aged Out No longer eligi ble based on patient's age to complete this topic HPV VACCINE Aged Out No longer eligi ble based on patient's age to complete this topic MENINGOCOCCAL (Group B) VACCINE SHARED DECISION-MAKING Aged Out No longer eligible based on patient's age to complete this topic MENINGOCOCCAL GROUPS A/C/Y/W VACCINE Aged Out No longer eligible based on patient's age to complete this topic Insurance [facility] AETNA MEDICARE ADV Care Teams Crossing Tender Relationship Specialty [place] [address] [place] [id number] PCP - General 08/10/19 Ben Lindsay MD [facility] [address] [phone] Cardiovascular Disease 07/08/23
--- OUTSIDE RECORDS SUMMARY | 2025-01-09 13:12 | XMS_ITS | Patient Health Record ---
Author Organization [facility] Address [address] [place] [address] Care Team Providers Care Director Of Collections Name Role Phone Dinora Gardner Primary Care Provider Allergies No Known Allergies Reason For Referral No Information Medications Medication SIG (Take, Route, Frequency, Duration) Notes Start Date End Date Status Trulicity 3 MG/0.5ML as directed Subcutaneous Not-Taking Gabapentin 600 MG 1 tablet Orally Thre e times a day; Duration: 30 days Active Social History Tobacco Use: Social History Observation Description Date Details (start date - stop date) Never Smoker NA - NA Dont use, Tobacco Use/Smoking Question Answer Notes Are you a nonsmoker Tobacco Control (Standard) Question Answer Notes Tobacco use: Nonsmoker AUDIT-C (Standard) Question Answer Notes Did you have a drink contain ing alcohol in the past year? Yes How often did you have six o r more drinks on one occasion in the past year? Never (0 point) How many drinks did you have on a typical day when you were drinking in the past year? 1 or 2 drinks (0 point) How often did you have a dri nk containing alcohol in the past year? Monthly or less (1 point) Points 1 Interpretation Negative Problems Problem Type SNOMED Code ICD Code Onset Dates Problem Status W/U Status Risk Notes Problem Bipolar 2 disorder (F31.81) Active confirmed Plan Of Treatment No Information Insurance Providers Payer Name Payer Address Payer Phone Subscriber Number Group Number Insured Name Patient Relationship to Insured Coverage Start Date Coverage End Date UHC AARP Medicare [address] [address] [place] [address] [id number] Jose De La Vega Self - patient is the insured [address] [place] [address] [address] [place] [address] [id number] Jose De La Vega Self - patient is the insured 3 [employer] [address] [place] [address] [id number] Jose De La Vega Self - patient is the insured 3 3 MEDICARE PART A [address] [place] [phone] [id number] Jose De La Vega Self - patient is the insured 3 Aetna Medicare [address] [place] [address] [id number] Jose De La Vega Self - patient is the insured 3 4 Medical (General) History Medical History History ICD Code Obesity Surgical History Surgery Date(Month/Year) right knee-50 years ago left ear 2020 both hands 2019 both elbows 2018 both wrists 2018
--- NOTE | 2025-01-09 13:13 | PC.NURSE ---
2 Ativan given IVP, 1mg Dilaudid given IVP per [facility] EDP Dr Cardoza at bedside.
--- OUTSIDE RECORDS SUMMARY | 2025-01-09 13:13 | XMS_ITS | Clinical Summary ---
Author Organization [facility] Address [address] [place] [address] Phone Care Team Providers Care Insurance Claims Examiner Name Role Phone Shala Diaz MD Primary [...] mouth daily. Reported on 07/29/2016 Active Aclidinium [place] (TUDORZA PRESSAIR IN) take by inhalation. Active [...] 92 11/24/2017 9:40 AM CDT Temperature 36.9 C (98.4 F) 11/24/2017 9:40 AM CDT Respiratory Rate 16 05/24/2017 10:5 9 AM CAKE WRAPPER Oxygen Saturation 96% 11/24/2017 9:40 AM CDT [...] years) (1 of 2 - PCV) 1977 Cologuard 2003 Colonoscopy 2003 Colorectal Cancer Screening 2003 Immunochemical Fecal Occult Blood 2003 Zoster Immunization (1 of 2) 2008 Respiratory Syncytial Virus (RSV) Immunization (Adult) (1 - Risk 60-74 years 1-dose series) 2018 SARS-COV-2 Immunization ( season) 2024 04/21/2021, 03/30/2021, 08/29/2020 Influenza Immunization (#1) 01/28/202502/27, 04/21/2016, 02/23/2016, Additional history exists DTaP/Tdap/Td Immunization Discontinued 04/25/2017 TdaP Immunization Completed 04/25/2017 Hepatitis B Immunization Aged Out No longer eligible based on patient's age to complete this topic Human Papillomavirus (HPV) Immunization Aged Out No longer eligible based on patient's age to complete this topic Meningococcal Immunization (ACWY) Aged Out No longer eligible based on patient's age to complete this topic Rotavirus Immunization Aged Out No lo nger eligible based on patient's age to complete this topic Insurance MEDICAID [place] Care Teams Insurance Claims Examiner Relationship Specialty [place] [address] [place] [id number] PCP - General Internal Medicine 03/16/16
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
[2025-01-09 13:26] LABS: Hematocrit 53.1 % (42.0-52.0); Hemoglobin 15.8 g/dL (14.0-18.0); Immature Granulocyte Percent A 0.4 % (0-0.5); Lymphocytes Absolute Auto 0.88 K/mm3 (0.9-3.2); Mean Corpuscular HGB Conc 29.8 g/dl (32-36); Mean Corpuscular Hemoglobin 29.9 pg (26-34); Mean Corpuscular Volume 100.4 fl (80-100); Nucleated Red Blood Cells Absolute Auto 0.140 K/mm3 (0.0-0.012); Nucleated Red Blood Cells Perc 0.9 % (0.0-0.2); Platelet Count Result 323 k/mm3 (150-375); Red Blood Count 5.29 M/mm3 (4.6-6.20); White Blood Count 15.7 K/mm3 (4.5-10.0)
[2025-01-09] MEDS: LORazepam INJ (*CRX) 2 MG/ML VIAL IV PUSH (13:28)
[2025-01-09] MEDS: HYDROmorphone HCL INJ (*CRX) 1 MG/ML SYR IV PUSH (13:29)
[2025-01-09] MEDS: SODIUM CHLORIDE 0.9% IV 1,000 ML 999 ML (13:31)
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
[2025-01-09 13:33] LABS: Alveolar/Arterial O2 Gradient 600.7 mmHg; Fractional Inspired Oxygen 100 %; HCO3 ABG 22.9 mEq/l (22.0-26.0); Oxygen Content ABG 15.4 %vol (16.0-22.0); PCO2 ABG 58.2 mmHg (35.0-45.0); PO2 ABG 54.1 mmHg (80.0-100.0); PO2 FiO2 Ratio Arterial Blood 0.54 %
[2025-01-09 13:37] LABS: Alanine Aminotransferase 692 U/L (6-50); Albumin Level 4.1 g/dL (3.5-5.1); Alkaline Phosphatase 102 U/L (38-126); Anion Gap 12 mmol/L (4-12); Aspartate Amino Transferase 660 U/L (17-59); Bilirubin,Total 1.2 mg/dL (0.2-1.3); Blood Urea Nitrogen 79 mg/dL (9-20); Calcium 8.1 mg/dL (8.4-10.2); Carbon Dioxide 27 mmol/L (22-30); Chloride 101 mmol/L (98-107); Estimated CRCL calculation 22 ml/min; Estimated Glomerular Filt Rate 16; Glucose 124 mg/dL (65-110); Lipase 57 U/L (23-300); Magnesium 2.9 mg/dL (1.6-2.3); Potassium 6.1 mmol/L (3.4-5.0); Sodium 140 mmol/L (137-145); Total Protein 7.2 g/dL (6.3-8.2)
[2025-01-09 13:37] LABS: Arterial Blood Gas Ventilator rate 16 /MIN; Modified Allen's Test Pass; Oxygen Saturation ABG 80.8 % (95.0-100.0); Site Drawn RIGHT RADIAL
[2025-01-09 13:38] LABS: Arterial Blood Gas Tidal Volume 500 ml
[2025-01-09 13:42] LABS: INR 1.3; Prothrombin Time 16.1 Seconds (11.1-14.7)
[2025-01-09 13:43] LABS: Partial Thromboplastin Time 28.0 Seconds (22.3-36.8)
[2025-01-09 13:46] LABS: Polychromasia 1+
[2025-01-09 13:47] LABS: NT Pro B Type Natriuretic Pept > 30000 pg/mL (19.9-100); Schistocytes None Seen; Troponin I 0.215 ng/mL (0.000-0.034)
[2025-01-09 14:05] LABS: Cannabinoid Screen Urine Positive (Negative)
[2025-01-09 14:07] LABS: Thyroid Stimulating Hormone Reflex 2.280 uIU/mL (0.465-4.68)
--- NOTE | 2025-01-09 14:10 | ED_ITS ---
HPI - General Adult General Chief complaint: Altered Mental Status Stated complaint: unresponsive agonal breaths History of Present Illness HPI narrative: This is a 64-year-old male with history of COPD chronic respiratory failure presenting for altered mental status. EMS was called by the patient's . She says that he has been laying in bed breathing agonally for the last 2 days. He was then brought to the hospital emergently. During that time they were bagging him and unable to get his oxygen saturations above 80%. On arrival patient is breathing agonally. GCS 3. Unable to reach family to discuss goals of care. Related Data Home Medications ?Medication ?Instructions ?Recorded ?Confirmed ?Last Taken ?Type albuterol sulfate 90 mcg/actuation 2 puff inhalation Q4-6H PRN 07/03/24 07/03/24 Unknown History aerosol inhaler (Ventolin HFA) Shortness of breath apixaban 5 mg tablet (Eliquis) 5 mg PO BID 07/03/24 07/03/24 Unknown History aripiprazole 2 mg tablet 2 mg PO DAILY 07/03/24 07/03/24 Unknown History budesonide-formoterol HFA 160 2 puff inhalation Q12H 07/03/24 07/03/24 Unknown History mcg-4.5 mcg/actuation aerosol inhaler (Symbicort) diltiazem HCl 360 mg 360 mg PO DAILY 07/03/24 07/03/24 Unknown History capsule,extended release 24 hr furosemide 40 mg tablet 40 mg PO DAILY 07/03/24 07/03/24 Unknown History losartan 50 mg tablet 50 mg PO DAILY 07/03/24 07/03/24 Unknown History mometasone-formoterol HFA 200 2 puff inhalation BID 07/03/24 07/03/24 Unknown History mcg-5 mcg/actuation aerosol inhaler (Dulera) umeclidinium 62.5 mcg/actuation 1 inh inhalation ONCE 07/03/24 07/03/24 Unknown History blister powder for inhalation (Incruse Ellipta) Allergies Allergy/AdvReac Type Severity Reaction Status Date / Time piroxicam Allergy Unknown Unknown Verified 07/03/24 17:10 [facility] Past Medical History Medical History Continuous tobacco abuse Chronic respiratory failure with hypoxia and hypercapnia On home O2 of 3 L Bipolar disorder CHF (congestive heart failure) COPD (chronic obstructive pulmonary disease) Surgical History Surgical History No significant past surgical history Family History Family History Other Unknown family medical history Social History Social History Social History: Code status: Full code (per EMR) Surrogate decision maker: Aura Campos (sister) Smoking packs per day: 1.5 Smoking cigarettes per day: 30.0 Years smoked: 40 Smoking pack-years: 60.00 Smoking status: Current every day smoker Tobacco type: cigarettes Alcohol intake: never Substance use type: marijuana Last use: 07/02/2024 Spiritual care concerns: No Exam 2 Narrative: APPEARANCE: Unresponsive, GCS 3, agonal breathing Head: atraumatic. EYES: EOMI, NOSE: Atraumatic NECK: Trachea midline RESPIRATORY: Rhonchi right lower lobe CARDIOVASCULAR: RRR, no peripheral edema ABDOMINAL: Non-distended soft nontender MUSCULOSKELETAl: No obvious deformities NEURO: Unresponsive SKIN:: Cold clammy PSYCHIATRIC: unresponsive Course Vital Signs Vital signs: Vital Signs Pulse Rate 105 H 01/09/25 12:55 Blood Pressure 145/94 H 01/09/25 12:55 Pulse Oximetry 85 L 01/09/25 12:55 Oxygen Delivery Bag Valve Mask 01/09/25 12:55 Oxygen Flow Rate 15 01/09/25 12:55 Temperature 100.0 F H 01/09/25 14:52 Pulse Rate 89 01/09/25 14:52 Respiratory Rate 17 01/09/25 14:25 Blood Pressure 107/74 01/09/25 14:52 Pulse Oximetry 76 L 01/09/25 14:52 Oxygen Delivery Mechanical Ventilation 01/09/25 13:41 Oxygen Flow Rate 15 01/09/25 13:35 Fraction of Inspired Oxygen 100 01/09/25 13:41 Procedures Intubation Intubation #1: Intubation Date: 01/09/25 Time out performed: Yes sedative: Etomidate Mg Given: 20 paralytic: Rocuronium Mg Given: 100 Laryngoscope: Fuentes Tube Size (cm): 7.5 Method of Intubation: orotracheal Number of Attempts: 1 Tube Secured Depth (cm): 24 Tube Secured Location: teeth Tube Placement Confirmation: visualized tube passing through cords Patient Tolerated Procedure: well Intubation Complications: none Medical Decision Making MDM Narrative Medical decision making narrative: -Course: 64-year-old male presenting for altered mental status. On arrival patient has a GCS of 3. Hypotensive. Hypoxic. Unable to reach family to discuss goals of care. Assumed full code. Patient was intubated for hypoxic respiratory failure. Patient hypotensive at 60/40. Point of care cardiothoracic ultrasound showed a large heart with blood work IVC. Given 1 L normal saline with improvement in blood pressure. CT brain unremarkable. CT chest abdomen pelvis showed right-sided pneumonia. Flagyl added for possible aspiration given his history of drug use. White count 15. Acute kidney failure with creatinine of 3.8. Patient's respiratory status continued to be poor. Despite escalating vent settings his oxygen continues to drop. ICU was consulted. They recommended paralyzation and admission to ICU for proning. Further management per their care. Vital Signs Vital Signs: Vital Signs Pulse Rate 105 H 01/09/25 12:55 Blood Pressure 145/94 H 01/09/25 12:55 Pulse Oximetry 85 L 01/09/25 12:55 Oxygen Delivery Bag Valve Mask 01/09/25 12:55 Oxygen Flow Rate 15 01/09/25 12:55 Temperature 100.0 F H 01/09/25 14:52 Pulse Rate 89 01/09/25 14:52 Respiratory Rate 17 01/09/25 14:25 Blood Pressure 107/74 01/09/25 14:52 Pulse Oximetry 76 L 01/09/25 14:52 Oxygen Delivery Mechanical Ventilation 01/09/25 13:41 Oxygen Flow Rate 15 01/09/25 13:35 Fraction of Inspired Oxygen 100 01/09/25 13:41 Lab Data 01/09/25 13:17 01/09/25 13:17 Labs: Lab Results 01/09/25 01/09/25 01/09/25 Range/Units 13:17 13:23 13:32 WBC 15.7 H (4.5-10.0) K/mm3 RBC 5.29 (4.6-6.20) M/mm3 Hgb 15.8 D (14.0-18.0) g/dL Hct 53.1 H (42.0-52.0) % MCV 100.4 H (80-100) fl MCH 29.9 (26-34) pg MCHC 29.8 L (32-36) g/dl RDW 17.7 H (11.5-14.5) % Plt Count 323 D (150-375) k/mm3 MPV 11.2 H (7.4-10.4) fl Immature Gran % (Auto) 0.4 (0-0.5) % Neut % (Auto) 84.7 H (45.5-73.1) % Lymph % (Auto) 5.6 L (18.3-44.2) % [place] % (Auto) 9.2 H (2.6-8.5) % Eos % (Auto) 0.0 (0-4.4) % Baso % (Auto) 0.1 L (0.2-1.2) % Lymph # (Auto) 0.88 L (0.9-3.2) K/mm3 [place] # (Auto) 1.5 H (0.1-0.6) K/mm3 Eos # (Auto) 0.0 (0-0.3) K/mm3 Baso # (Auto) 0.0 (0.0-0.1) K/mm3 Abs Immat Gran (auto) 0.06 H (0.00-0.031) K/mm3 Absolute Neuts (auto) 13.3 H (1.3-6.7) K/mm3 Absolute Nucleated RBC 0.140 H (0.0-0.012) K/mm3 Band Neutrophils % Not Reportable Nucleated RBC % 0.9 H (0.0-0.2) % Platelet Estimate Adequate (Adequate) Polychromasia 1+ Schistocytes None seen PT 16.1 H (11.1-14.7) Seconds INR 1.3 APTT 28.0 (22.3-36.8) Seconds Minute Volume Not Reportable Vent Mode Cmv Tidal Volume 500 ml PEEP 10 cmH2O Peak Inspir Pressure Not Reportable Pressure Support Not Reportable Sodium 140 (137-145) mmol/L Potassium 6.1 H* (3.4-5.0) mmol/L Chloride 101 (98-107) mmol/L Carbon Dioxide 27 (22-30) mmol/L Anion Gap 12 (4-12) mmol/L BUN 79 H D (9-20) mg/dL Creatinine 3.81 H (0.7-1.3) mg/dL Estim Creat Clear Calc 22 ml/min Estimated GFR 16 L (59 - ) Glucose 124 H (65-110) mg/dL Lactic Acid 2.5 H (0.7-2.0) mmol/L Calcium 8.1 L (8.4-10.2) mg/dL Phosphorus 7.7 H (2.5-4.5) mg/dL Magnesium 2.9 H (1.6-2.3) mg/dL Total Bilirubin 1.2 (0.2-1.3) mg/dL AST 660 H (17-59) U/L ALT 692 H (6-50) U/L Alkaline Phosphatase 102 (38-126) U/L Troponin I 0.215 H* (0.000-0.034) ng/mL NT-Pro-B Natriuret Pep > 65338 H (19.9-100) pg/mL Total Protein 7.2 (6.3-8.2) g/dL Albumin 4.1 (3.5-5.1) g/dL Lipase 57 (23-300) U/L TSH (Reflex) 2.280 (0.465-4.68) uIU/mL Urine Color Dark yellow (Yellow) Urine Appearance Clear (Clear) Urine pH 5.0 (5.0-9.0) Ur Specific [place] 1.018 (1.001-1.035) Urine Protein 1+ H (Negative) mg/dL Urine Glucose (UA) Negative (Negative) mg/dL Urine Ketones Trace H (Negative) mg/dL Ur Blood (Man) Negative (Negative) Urine Nitrate Negative (Negative) Urine Bilirubin 1+ H (Negative) Urine Urobilinogen 1.0 (<2.0) mg/dL Add Ur Microanalysis Reviewed Leukocyte Esterase Rfl Negative (Negative) YENNI/UL Urine RBC 0-2 (0-2) /hpf Urine WBC 0-5 (0-3) /hpf Ur Squamous Epith Cells None seen (Few) /hpf Urine Bacteria None seen /hpf Urine Casts 11-20 Hyaline Casts Present (None) /lpf Nasal MRSA (PCR) Urine Opiates Screen Negative (Negative) Urine Methadone Screen Negative (Negative) Ur Barbiturates Screen Negative (Negative) Ur Phencyclidine Scrn Negative (Negative) Ur Amphetamine Screen Negative (Negative) U Benzodiazepines Scrn Negative (Negative) Urine Cocaine Screen Positive A (Negative) U Cannabinoids Screen Positive A (Negative) Ethyl Alcohol < 10 (<10) mg/dL Influenza A (RT-PCR) (Negative) Influenza B (RT-PCR) (Negative) RSV (RT-PCR) (Negative) SARS-CoV-2 RNA (RT-PCR) (Negative) 01/09/25 01/09/25 Range/Units 14:08 14:10 WBC (4.5-10.0) K/mm3 RBC (4.6-6.20) M/mm3 Hgb (14.0-18.0) g/dL Hct (42.0-52.0) % MCV (80-100) fl MCH (26-34) pg MCHC (32-36) g/dl RDW (11.5-14.5) % Plt Count (150-375) k/mm3 MPV (7.4-10.4) fl Immature Gran % (Auto) (0-0.5) % Neut % (Auto) (45.5-73.1) % Lymph % (Auto) (18.3-44.2) % [place] % (Auto) (2.6-8.5) % Eos % (Auto) (0-4.4) % Baso % (Auto) (0.2-1.2) % Lymph # (Auto) (0.9-3.2) K/mm3 [place] # (Auto) (0.1-0.6) K/mm3 Eos # (Auto) (0-0.3) K/mm3 Baso # (Auto) (0.0-0.1) K/mm3 Abs Immat Gran (auto) (0.00-0.031) K/mm3 Absolute Neuts (auto) (1.3-6.7) K/mm3 Absolute Nucleated RBC (0.0-0.012) K/mm3 Band Neutrophils % Nucleated RBC % (0.0-0.2) % Platelet Estimate (Adequate) Polychromasia Schistocytes PT (11.1-14.7) Seconds INR APTT (22.3-36.8) Seconds Minute Volume Vent Mode Tidal Volume ml PEEP cmH2O Peak Inspir Pressure Pressure Support Sodium (137-145) mmol/L Potassium (3.4-5.0) mmol/L Chloride (98-107) mmol/L Carbon Dioxide (22-30) mmol/L Anion Gap (4-12) mmol/L BUN (9-20) mg/dL Creatinine (0.7-1.3) mg/dL Estim Creat Clear Calc ml/min Estimated GFR (59 - ) Glucose (65-110) mg/dL Lactic Acid (0.7-2.0) mmol/L Calcium (8.4-10.2) mg/dL Phosphorus (2.5-4.5) mg/dL Magnesium (1.6-2.3) mg/dL Total Bilirubin (0.2-1.3) mg/dL AST (17-59) U/L ALT (6-50) U/L Alkaline Phosphatase (38-126) U/L Troponin I (0.000-0.034) ng/mL NT-Pro-B Natriuret Pep (19.9-100) pg/mL Total Protein (6.3-8.2) g/dL Albumin (3.5-5.1) g/dL Lipase (23-300) U/L TSH (Reflex) (0.465-4.68) uIU/mL Urine Color (Yellow) Urine Appearance (Clear) Urine pH (5.0-9.0) Ur Specific [place] (1.001-1.035) Urine Protein (Negative) mg/dL Urine Glucose (UA) (Negative) mg/dL Urine Ketones (Negative) mg/dL Ur Blood (Man) (Negative) Urine Nitrate (Negative) Urine Bilirubin (Negative) Urine Urobilinogen (<2.0) mg/dL Add Ur Microanalysis Leukocyte Esterase Rfl (Negative) YENNI/UL Urine RBC (0-2) /hpf Urine WBC (0-3) /hpf Ur Squamous Epith Cells (Few) /hpf Urine Bacteria /hpf Urine Casts Hyaline Casts (None) /lpf Nasal MRSA (PCR) Pending Urine Opiates Screen (Negative) Urine Methadone Screen (Negative) Ur Barbiturates Screen (Negative) Ur Phencyclidine Scrn (Negative) Ur Amphetamine Screen (Negative) U Benzodiazepines Scrn (Negative) Urine Cocaine Screen (Negative) U Cannabinoids Screen (Negative) Ethyl Alcohol (<10) mg/dL Influenza A (RT-PCR) Negative (Negative) Influenza B (RT-PCR) Negative (Negative) RSV (RT-PCR) Negative (Negative) SARS-CoV-2 RNA (RT-PCR) Negative (Negative) ABG Data ABG results: 01/09/25 13:32 Puncture Site Right radial ABG pH 7.212 L* ABG pCO2 58.2 H ABG pO2 54.1 L ABG PO2/FiO2 Ratio 0.54 ABG HCO3 22.9 ABG O2 Saturation 80.8 L* ABG O2 Content 15.4 L ABG Base Excess -5.8 A-a Gradient 600.7 Oxyhemoglobin 75.4 L* Total Hemoglobin 14.5 O2 Delivery Device Ventilator O2 Liters/Min Not Reportable Vent Rate 16 FiO2 100 Critical Care Time Critical Care Time Critical Care Time: Yes Total Critical Care Time: 35 Discharge Plan Discharge Clinical Impression: Pneumonia, Hypoxic respiratory failure Patient Disposition: Still a Patient Condition: Critical Patient Language: British Prescriptions: No Action albuterol sulfate [Ventolin HFA] 90 mcg/actuation HFA aerosol inhaler 2 puff INHALATION Q4-6H PRN (Reason: Shortness of breath) Eliquis 5 mg tablet 5 mg PO BID aripiprazole 2 mg tablet 2 mg PO DAILY budesonide-formoterol [Symbicort] 160-4.5 mcg/actuation HFA aerosol inhaler 2 puff INHALATION Q12H diltiazem HCl 360 mg capsule,extended release 24hr 360 mg PO DAILY furosemide 40 mg tablet 40 mg PO DAILY losartan 50 mg tablet 50 mg PO DAILY Dulera 200-5 mcg/actuation HFA aerosol inhaler 2 puff INHALATION BID Incruse Ellipta 62.5 mcg/actuation blister with device 1 inh INHALATION ONCE Follow-up/Referrals: Joe,Filipe Last. [Primary Care Provider] -
[2025-01-09 14:15] LABS: Add Urine Microscopic? YES; Appearance Urine Clear (Clear); Glucose Urine UA Negative (Negative); Leukocyte Esterase Ur Negative LEU/UL (Negative); Need Manual Microscopic Reviewed; Nitrate Urine Negative (Negative); Specific Grav Ur 1.018 (1.001-1.035)
[2025-01-09] MEDS: FENTANYL 2,500MCG/NS250ML(*CRX 2,500 MCG/250 ML BAG 10 MCG IV CONT (14:18)
[2025-01-09] MEDS: MIDAZOLAM 100MG/NS 100ML(*CRX) 100 MG/100 ML BAG IV CONT (14:21)
--- NOTE | 2025-01-09 14:46 | PC.NURSE ---
DR FRYE AT BEDSIDE TO ATTEMPT BLOOD CULTURES, UNSUCCESSFUL. UNSUCCESSFUL BY 2 TECHS PRIOR.
[2025-01-09 15:02] LABS: Influenza A QL RT-PCR Negative (Negative); Influenza B QL RT-PCR Negative (Negative); RSV RNA, RT-PCR Negative (Negative); SARS-CoV-2 RNA PCR Negative (Negative)
[2025-01-09] MEDS: CEFEPIME 1 GM in SODIUM CHLORIDE 0.9% IV 50 ML 100 ML IVPB (15:17)
[2025-01-09] MEDS: ROCURONIUM BROMIDE 50 MG/5 ML VIAL 100 MG IV PUSH (15:17)
[2025-01-09 15:23] LABS: MRSA (PCR) DETECTED (NOT DETECTE)
--- NOTE | 2025-01-09 15:30 | PCCCNOTE ---
Called [place] [employer] dept at [phone] and spoke to Officer [id number]. Informed him the pt is critical and have been unsuccessful at contacting family. They were agreeable with going to the residence to share the information and have her please call the hospital ICU.-kaiden
--- NOTE | 2025-01-09 15:46 | PCCCNOTE ---
[id number]-Received an inbound call from the pt's sister Aura. Stated the pt had been living with her and does not have a POA. Stated she does know he wanted to be a DNR and donate his body to science. Called the ICU and spoke with the pt's nurse transferring the call to continue this conversation.-kaiden
--- NOTE | 2025-01-09 15:57 | ADMGEN ---
This patient, Jose De La Vega, was admitted to Intensive Care Unit-9. Patient/family oriented to hospital policies and general routines including ID bracelet, bed and alarms, visiting hours, pain management, procedures, bathroom and other care routines, personal items, smoking policy, room service/diet, and visiting hours. Information on how to activate the Rapid Response Team has been discussed. Patient/Family are encouraged to report perceived risks to care and to ask questions if they do not understand what they are told or what they should do.
[2025-01-09 16:24] LABS: Alveolar/Arterial O2 Gradient 615.7 mmHg; Carboxyhemoglobin 3.2 % THb (0-2.0); Fractional Inspired Oxygen 100 %; HCO3 ABG 22.6 mEq/l (22.0-26.0); Methemoglobin ABG 0.2 %THb (0-1.5); Oxygen Content ABG 16.6 %vol (16.0-22.0); PCO2 ABG 45.1 mmHg (35.0-45.0); PO2 ABG 52.2 mmHg (80.0-100.0); PO2 FiO2 Ratio Arterial Blood 0.52 %; Reduced Hemoglobin 16.2 %THb (0-5.0)
[2025-01-09] MEDS: LIDOCAINE 1% LOCAL INJ 20 ML VIAL 5 ML INFILTRATE (16:30)
--- NOTE | 2025-01-09 17:10 | WPDPROCEDUR ---
Procedures Central Line Placement Right IJ: Central Line Date: 01/09/25 Central Line Time: 17:10 Discussed w/ the patient/family/POA,the placement of a central venous catheter, including its clinical necessity/indication & associated potential risks, benifits and alternatives.: Yes Consent: I have discussed with the patient and/or surrogate, the non-emergent placement of a central venous catheter, including its clinical necessity/indication and associated potential risks and complications. The patient and/or surrogate understand(s) and acknowledge(s) the need to proceed with central venous catheter insertion as an important element of the patient's clinical management. Time Out Performed: Yes Patient Position: supine Patient placed on monitor/pulse ox: Yes Provider Prep: mask, sterile gown, sterile gloves, Max. sterile barrier precautions, cap and hand hygiene with conventional soap/water or alcohol based hand rub Central line prep: 2% Chlorhexidine scrub Local anesthesia used: lidocaine 1% Amount of anesthesia used (ml): 3 Sterile US Technique with sterile gel/sterile probe covers: Yes Central line lumen inserted: triple Setswana: 7 Length (cm): 16 Depth of Insertion (cm): 16 Post Procedure: sutured in place, good blood return, all ports aspirated, flushed, capped, transparent dressing, hemostatic product, antimicrobial product, securement product and aseptic technique maintained throughout procedure Post procedure x-ray: tip of catheter in good position and no pneumothorax seen Patient tolerated procedure: well and no complications
[2025-01-09 17:11] LABS: Oxygen Saturation ABG 84.0 % (95.0-100.0)
[2025-01-09 17:12] LABS: Site Drawn ARTLINE
[2025-01-09 17:13] LABS: Arterial Blood Gas Tidal Volume 500 ml; Arterial Blood Gas Ventilator rate 16 /MIN
--- NOTE | 2025-01-09 17:19 | P.PCNBED_ITS ---
Procedures Arterial Line Arterial Line Date: 01/09/25 Arterial Line Time: 17:19 Discussed with the patient/family/POA, the placement of an arterial catheter, including its clinical necessity/indication and associated potential risks, benefits and alternatives.: Yes Patient/family/POA and/or understands and acknowledges the need to proceed with the arterial catheter insertion as an important element of the patient's clinical management.: Yes Time Out Performed: Yes Patient Position: supine Surgical Scrub Technician Prep: sterile gown, sterile gloves, mask and hat Site: left and radial Site Prep: chlorhexidine and sterile drape Skin Anesthesia: 1% lidocaine Technique used: ultrasound-guided Size (Gauge): 14 Length: 4.4 cm Closure/Dressing: suture, transparent dressing, hemostatic product, antimicrobial product and securement product Patient tolerated procedure: well and no complications
--- NOTE | 2025-01-09 17:20 | WPDCNINT ---
Assessment and Plan Assessment and plan (1) Acute hypoxic respiratory failure: Code(s): J96.01 - Acute respiratory failure with hypoxia Status: Acute Assessment and Plan: 01/09: Patient presented the ED via EMS after the called 911 as patient has been laying in bed with agonal breathing for the last 2 days, upon arrival of the EMS patient was unresponsive, with agonal breaths. Bag-mask ventilation was started patient was hypotensive, in the ER patient had a GCS of 3 and was emergently intubated. Post intubation patient is on O2 sats were in the upper 60s to 70s. Patient was in a PEEP of 15 and 100% FiO2 -I was asked to come down to the ER to evaluate the patient, patient was given rocuronium, and revealed emergently to the ICU -remains on CMV mode of ventilation, peep of 14, 100% FiO2 -emergent bronch was performed in the ICU with significant thick mucus plugs in the right mainstem, right upper lobe and right lower lobe. Suction and cleared most of the secretions with the bronchoscope. -O2 sats improved to 95-99% -repeat chest x-ray shows improvement in the right lower lobe and right upper lobe aeration -chest physiotherapy per RT -Mucomyst and Pulmozyme nebulizer -DuoNebs -Symbicort inhaler -Solu-Medrol -sedated with fentanyl and Versed infusion, maintain RASS of 0 to -2, daily SBT and SAT -will repeat ABGs 01/09: CT PE protocol, abdomen and pelvis with no evidence of pulmonary embolism, extensive right upper lobe and lower lobe airspace disease consistent with pneumonia. Bilateral pleural effusion, right greater than left. Hyperdense right renal masses, cannot exclude renal cell carcinoma, consider correlation with MRI abdomen with contrast. Small pericardial (2) Septic shock: Code(s): A41.9 - Sepsis, unspecified organism; R65.21 - Severe sepsis with septic shock Status: Acute Assessment and Plan: Patient with hypotension, acute respiratory failure, lactic acidosis, tachycardia -UA was negative -patient given 2 L IV fluid bolus -started on maintenance IV fluid -lactic acid was 2.5 -requiring Levophed, will maintain MAP > 65 mm or SBP > 100 mmHg at all times for adequate end organ perfusion -started on cefepime, vancomycin, doxycycline, Flagyl (01/09) -trend lactic acid -01/09: Blood culture -01/09: Sputum culture (3) Pneumonia: Code(s): J18.9 - Pneumonia, unspecified organism Status: Acute Assessment and Plan: Likely pneumonia on of the right upper and lower lobe -COVID, RSV and influenza were negative -continue antibiotics as above -currently on mechanical ventilation (4) Acute exacerbation of chronic obstructive pulmonary disease: Code(s): J44.1 - Chronic obstructive pulmonary disease with (acute) exacerbation Status: Acute Assessment and Plan: History of is COPD with emphysema seen on CT scan of the chest -continue bronchodilators as above (5) Atrial fibrillation: Code(s): I48.91 - Unspecified atrial fibrillation Status: Acute Assessment and Plan: History of atrial flutter/fibrillation patient is on apixaban at home -currently in AFib, RVR with heart rates in the 100-110s -will start heparin infusion as patient may require further procedures such thoracentesis (6) Polysubstance use disorder: Code(s): F19.90 - Other psychoactive substance use, unspecified, uncomplicated Status: Acute Assessment and Plan: Urine tox screen was positive for cannabis and cocaine (7) Transaminitis: Code(s): R74.01 - Elevation of levels of liver transaminase levels Status: Acute Assessment and Plan: Significantly elevated LFTs, -will obtain right upper quadrant ultrasound and hepatitis panel -could also be related to hypoxia, hypotension/shock -continue to monitor liver function tests (8) Elevated troponin: Code(s): R79.89 - Other specified abnormal findings of blood chemistry Status: Acute Assessment and Plan: Elevated troponin 0.215 -could be related to type 2 infarct, is EKG did not show any ST elevation -will trend troponin -obtain echocardiogram in a.m. (9) Current smoker: Code(s): F17.200 - Nicotine dependence, unspecified, uncomplicated Status: Acute Assessment and Plan: Will head counselor patient on tobacco cessation once he is extubated (10) CHF (congestive heart failure): Code(s): I50.9 - Heart failure, unspecified Status: Acute Assessment and Plan: Patient has a history of CHF, likely HFpEF -proBNP > 78468 -echocardiogram has been ordered -chest x-ray does not show pulmonary edema (11) Electrolyte imbalance: Code(s): E87.8 - Other disorders of electrolyte and fluid balance, not elsewhere classified Status: Acute Assessment and Plan: Hyperkalemia, initial potassium 6.1 in the ER -will repeat potassium and will treat if elevated Plan DVT prophylaxis: Heparin infusion Stress ulcer prophylaxis: Protonix Nutrition: NPO Code Status: DNR Critical Care Time Spent: 180 minutes Due to a high probability of clinically significant, life threatening deterioration, the patient required my highest level of preparedness to intervene emergently and I personally spent this critical care time directly and personally managing the patient. This critical care time included obtaining a history; examining the patient; pulse oximetry; ordering and review of studies; arranging urgent treatment with development of a management plan; evaluation of patient's response to treatment; frequent reassessment; and discussions with other providers. It was exclusive of separately billable procedures and treating other patients and teaching time. Please see Assessment and Plan section and the rest of the note for further information on patient assessment and treatment This dictation may have been done utilizing a voice recognition system. Attempts have been made to correct errors. However, there may be uncorrected grammatical, spelling, and recognitions errors present. Solid Propellant Processor Consult Note Consult date: 01/09/25 Reason for consult: Acute hypoxic respiratory failure, altered mental status, pneumonia, acute kidney injury, hyperkalemia, severe sepsis/shock, transaminitis HPI: Jose De La Vega is a 64 year old male with past medical history of chronic hypoxic and hypercapnic respiratory failure on 3 L home oxygen, bipolar disorder, CHF, COPD, tobacco abuse, polysubstance abuse presented the ED on 01/09/2025 via EMS after found unresponsive at home, hypoxic with agonal breathing. According the records patient's states that he has been laying in bed with agonal breathing for the last 2 days it altered mental status. Upon arrival of the EMS he was hypoxic and agonal, he did bag-mask ventilation and was unable to get his oxygen saturations of 80%. Upon arrival to the ED patient was intubated emergently as his GCS was 3. Patient was hypotensive and hypoxic. Patient was given 1 L IV fluid bolus. CT brain was negative for acute intracranial hemorrhage or mass effect, probable chronic ischemic white matter change CT PE protocol, abdomen and pelvis with no evidence of pulmonary embolism, extensive right upper lobe and lower lobe airspace disease consistent with pneumonia. Bilateral pleural effusion, right greater than left. Hyperdense right renal masses, cannot exclude renal cell carcinoma, consider correlation with MRI abdomen with contrast. Small pericardial Labs in the ER showed WBC count of 16.7, hemoglobin 15.8, platelet counts 323, neutrophil predominance, PT 16.1, INR 1.3, PTT 28. Sodium 140, potassium 6.1, chloride 101, CO2 27, anion gap 12, BUN 79, creatinine 3.81, glucose 124, lactic acid 2.5, phosphorus 7.7, magnesium 2.9, total bilirubin 1.2, AST 60, ALT 692, troponin 0.215>. ProBNP > 04444. Lipase is 57, TSH 2.280. UA E not reflective of UTI. MRSA screen was positive. Urine drug screen was positive for cocaine and cannabinoids. Alcohol level< 10. Influenza, RSV, COVID PCR were negative I was called to the ER as patient was saturating in the 60s and 70s on 100% FiO2, peep of 14 on CMV mode of ventilation with a rate of 16 and tidal volume 500. Patient was given dose of rocuronium, started bag mask ventilation, give another L IV fluid bolus and transfer the patient emergently to the ICU. Urgent chest x-ray showed occlusion of the right mainstem bronchus with increasing right lung opacification. Upon arrival to the ICU central line was inserted in the right IJ, left radial arterial line was inserted. Patient was then brought on to with significant suctioning of thick yellow-white mucus plugs in the right upper and lower lobes along with new right mainstem bronchus. Oxygen saturations improved to 95-99%. Patient is sedated with fentanyl and Versed infusion, does not open his eyes or follow simple commands Review of Systems Review of Systems: ROS unobtainable: Yes unobtainable due to endotracheal tube, unobtainable due to medical condition and unobtainable due to mental status PMFSH Past Medical History Medical History Continuous tobacco abuse Chronic respiratory failure with hypoxia and hypercapnia On home O2 of 3 L Bipolar disorder CHF (congestive heart failure) COPD (chronic obstructive pulmonary disease) Surgical History Surgical History No significant past surgical history Family History Family History Other Unknown family medical history Social History Social History Social History: Code status: Full code (per EMR) Surrogate decision maker: Aura Campos (sister) Smoking packs per day: 1.5 Smoking cigarettes per day: 30.0 Years smoked: 40 Smoking pack-years: 60.00 Smoking status: Current every day smoker Tobacco type: cigarettes Alcohol intake: never Substance use type: marijuana Last use: 07/02/2024 Spiritual care concerns: No Meds Home Medications and Allergies Home Medications ?Medication ?Instructions ?Recorded ?Confirmed ?Type albuterol sulfate 90 mcg/actuation 2 puff inhalation Q4-6H PRN 07/03/24 07/03/24 History aerosol inhaler (Ventolin HFA) Shortness of breath apixaban 5 mg tablet (Eliquis) 5 mg PO BID 07/03/24 07/03/24 History aripiprazole 2 mg tablet 2 mg PO DAILY 07/03/24 07/03/24 History budesonide-formoterol HFA 160 2 puff inhalation Q12H 07/03/24 07/03/24 History mcg-4.5 mcg/actuation aerosol inhaler (Symbicort) diltiazem HCl 360 mg 360 mg PO DAILY 07/03/24 07/03/24 History capsule,extended release 24 hr furosemide 40 mg tablet 40 mg PO DAILY 07/03/24 07/03/24 History losartan 50 mg tablet 50 mg PO DAILY 07/03/24 07/03/24 History mometasone-formoterol HFA 200 2 puff inhalation BID 07/03/24 07/03/24 History mcg-5 mcg/actuation aerosol inhaler (Dulera) umeclidinium 62.5 mcg/actuation 1 inh inhalation ONCE 07/03/24 07/03/24 History blister powder for inhalation (Incruse Ellipta) Allergies Allergy/AdvReac Type Severity Reaction Status Date / Time piroxicam Allergy Unknown Unknown Verified 07/03/24 17:10 Vital Signs Vital Signs - 24 hr 01/09/25 12:55 01/09/25 13:20 01/09/25 13:21 Temperature 99.3 F Pulse Rate 105 H 103 H 100 Respiratory Rate 25 H Blood Pressure 145/94 H Pulse Oximetry 85 L 77 L Oxygen Delivery Bag Valve Mask Oxygen Flow Rate 15 Fraction of Inspired Oxygen 01/09/25 13:26 01/09/25 13:26 01/09/25 13:30 Temperature 99.7 F H 99.8 F H 100.1 F H Pulse Rate 101 H 105 H Respiratory Rate 11 L 9 L Blood Pressure 104/63 104/63 98/62 L Pulse Oximetry 80 L Oxygen Delivery Oxygen Flow Rate Fraction of Inspired Oxygen 01/09/25 13:31 01/09/25 13:32 01/09/25 13:35 Temperature 100.2 F H 100.2 F H Pulse Rate 113 H 107 H Respiratory Rate 16 16 Blood Pressure 91/74 L Pulse Oximetry 84 L 88 L Oxygen Delivery Bag Valve Mask Oxygen Flow Rate 15 Fraction of Inspired Oxygen 01/09/25 13:41 01/09/25 14:07 01/09/25 14:18 Temperature 100.3 F H Pulse Rate 91 96 Respiratory Rate 16 16 Blood Pressure 96/48 L Pulse Oximetry 80 L 93 Oxygen Delivery Mechanical Ventilation Oxygen Flow Rate Fraction of Inspired Oxygen 100 01/09/25 14:21 01/09/25 14:25 01/09/25 14:52 Temperature 100.0 F H Pulse Rate 97 88 89 Respiratory Rate 16 17 Blood Pressure 115/78 107/74 Pulse Oximetry 91 76 L Oxygen Delivery Oxygen Flow Rate Fraction of Inspired Oxygen 01/09/25 15:18 01/09/25 15:36 01/09/25 16:00 Temperature 100.1 F H 99.7 F H Pulse Rate 93 91 87 Respiratory Rate 20 22 H 22 H Blood Pressure 104/80 137/87 Pulse Oximetry 68 L Oxygen Delivery Oxygen Flow Rate Fraction of Inspired Oxygen Exam Narrative: General: Patient intubated and sedated, in no acute distress at this time HEENT:? Pupils equally reactive, sclera is clear, ETT in place Neck:? Supple Respiratory:? Coarse breath sounds bilaterally R > L, decreased breath sounds at right base, distant breath sounds Cardiac:? Irregularly irregular, tachycardia Abdomen:? Soft, nontender, nondistended, hypoactive bowel sounds Extremities:? Cool extremities, dopplerable pedal pulses bilateral, 1+ edema Neuro:? Patient intubated, sedated, does not open his eyes or follows commands, does not withdraw to pain Skin:? Cool extremities bilaterally Psych:? Unable to assess at this time Results Labs 01/09/25 13:17 01/09/25 13:17 Labs: Short CBC 01/09/25 Range/Units 13:17 WBC 15.7 H (4.5-10.0) K/mm3 Hgb 15.8 D (14.0-18.0) g/dL Hct 53.1 H (42.0-52.0) % Plt Count 323 D (150-375) k/mm3 BMP 01/09/25 13:17 Sodium 140 Potassium 6.1 H* Chloride 101 Carbon Dioxide 27 BUN 79 H D Creatinine 3.81 H Glucose 124 H Calcium 8.1 L Cardiac Enzymes 01/09/25 Range/Units 13:17 Troponin I 0.215 H* (0.000-0.034) ng/mL Liver Function 01/09/25 Range/Units 13:17 Total Bilirubin 1.2 (0.2-1.3) mg/dL AST 660 H (17-59) U/L ALT 692 H (6-50) U/L Alkaline Phosphatase 102 (38-126) U/L Albumin 4.1 (3.5-5.1) g/dL Urine 01/09/25 Range/Units 13:23 Urine Color Dark yellow (Yellow) Urine Appearance Clear (Clear) Urine pH 5.0 (5.0-9.0) Ur Specific [place] 1.018 (1.001-1.035) Urine Protein 1+ H (Negative) mg/dL Urine Glucose (UA) Negative (Negative) mg/dL Quality VTE Prophylaxis VTE prophylaxis: pharmacologic ordered Hospitalist MIPS Advance Care Plan I have confirmed that the patient's Advanced Care Plan is present, code status is documented, or surrogate decision maker is listed in patient medical record.: Yes Medication Reconciliation I have utilized all available resources to obtain, update and review the patients current medications (includes all prescriptions, OTC, herbals, cannabis, and nutritional supplements).: Yes
[2025-01-09] MEDS: VANCOMYCIN 1,500 MG/NS 500 ML 1,500 MG/500 ML BAG 250 MG IVPB (17:45)
[2025-01-09] MEDS: metroNIDAZOLE 500 MG/ISO 100ML 500 MG/100 ML BAG 100 MG IVPB (17:46)
[2025-01-09] MEDS: NOREPINEPHRINE 8 MG/D5W 250 ML 8 MG/250 ML BAG 18.75 MG IV CONT (17:52)
[2025-01-09] MEDS: DORNASE ALFA INH SOLN 1 MG/ML 2.5 ML AMP 2.5 MG (17:58)
[2025-01-09] MEDS: ACETYLCYSTEINE 20% INHAL SOLN 800 MG/4 ML VIAL 200 MG INHALATION ×2 (17:59→18:54)
[2025-01-09] MEDS: SODIUM BICARBONATE 8.4% 50 MEQ/50 ML SYRINGE 100 MEQ IV PUSH (18:02)
[2025-01-09 18:23] LABS: Hematocrit 47.6 % (42.0-52.0); Hemoglobin 14.3 g/dL (14.0-18.0); Mean Corpuscular HGB Conc 30.0 g/dl (32-36); Mean Corpuscular Hemoglobin 29.2 pg (26-34); Mean Corpuscular Volume 97.3 fl (80-100); Platelet Count Result 248 k/mm3 (150-375); Red Blood Count 4.89 M/mm3 (4.6-6.20); White Blood Count 13.4 K/mm3 (4.5-10.0)
[2025-01-09] MEDS: CEFEPIME 2 GM in SODIUM CHLORIDE 0.9% IV 50 ML 100 ML IVPB (18:29)
[2025-01-09] MEDS: DOXYCYCLINE IV 100 MG in SODIUM CHLORIDE 0.9% IV 100 ML IVPB (18:30)
--- NOTE | 2025-01-09 18:33 | WPDPROCEDUR ---
Procedures Arterial Line Size (Gauge): 14 Other Procedures Procedure 1: Other Procedure: Date: 01/09/2025 Procedure: Bronchoscopy Consent: Emergent Indication: Severe hypoxia, CXR showed mucus plugging in the right mainstem Monitoring: EKG, blood pressure, pulse oximetry Anesthesia: Patient on fentanyl and Versed, also received rocuronium in the ER. Physician: Tam Zamarripa MD Equipment: Ambu bag, glide scope with bronchoscopy, suction Complications: none Entry: A bronchoscope was lubricated and introduced through the indwelling ETT, in the standard fashion. Specimens: None, as it was emergent Findings: ? Larynx: intubated ? ETT Tube: With minimal yellow-white secretions ? Trachea: Minimal secretions ? R mainstem: Was obscured and blocked with thick yellow-white secretions, mild erythema of the [place], no growth or masses noticed ? RUL: Thick yellow white secretions and profuse ? RML: Moderate yellow-white secretions ? RLL: Profuse yellow-white secretions which with thick ? L mainstem: no secretions ? AMADOU: Minimal secretions, likely spilled from the right side, no erythema of the farn[place] were noted. No growth or masses notice ? LLL: Minimal secretions, likely spell from the right side, no erythema of the farnsworth were noted. No growth or masses notice -suctioned a lot of secretions from the right side with the help of Mucomyst and normal saline flashes along with lidocaine. Pre bronchoscopy O2 sats were between 65-75% Post bronchoscopy O2 sats improved > 92%
[2025-01-09 18:35] LABS: INR 1.3; Partial Thromboplastin Time 26.3 Seconds (22.3-36.8); Prothrombin Time 16.1 Seconds (11.1-14.7)
[2025-01-09 18:37] LABS: Hemoglobin A1C 5.4 % (<5.7)
[2025-01-09 18:40] LABS: Alanine Aminotransferase 605 U/L (6-50); Albumin Level 3.2 g/dL (3.5-5.1); Alkaline Phosphatase 86 U/L (38-126); Anion Gap 11 mmol/L (4-12); Aspartate Amino Transferase 519 U/L (17-59); Bilirubin,Total 0.7 mg/dL (0.2-1.3); Blood Urea Nitrogen 81 mg/dL (9-20); CRP 7.6 mg/dL (<1.0); Calcium 7.6 mg/dL (8.4-10.2); Carbon Dioxide 28 mmol/L (22-30); Chloride 104 mmol/L (98-107); Creatine Kinase 99 U/L (55-170); Estimated CRCL calculation 26 ml/min; Estimated Glomerular Filt Rate 20; Glucose 136 mg/dL (65-110); Lipase 39 U/L (23-300); Magnesium 2.5 mg/dL (1.6-2.3); Potassium 4.6 mmol/L (3.4-5.0); Sodium 143 mmol/L (137-145); Total Protein 5.7 g/dL (6.3-8.2)
[2025-01-09 18:46] LABS: Band Neutrophils Percent 5 % (0-6); Lymphocytes Absolute Manual 0.26 K/mm3 (1.1-4.5); Lymphocytes Percent Manual 2.0 % (18-44); Monocytes Absolute Manual 0.53 K/mm3 (0.1-0.90); Monocytes Percent Manual 4 % (3-9); Neutrophils Absolute Manual 12.59 K/mm3 (1.3-6.7); Neutrophils Percent Manual 89 % (46-73); Total Cells Counted 100
--- NOTE | 2025-01-09 18:46 | ADMGEN ---
This patient, Jose De La Vega, was admitted to Intensive Care Unit-9 at 1527. Patient/family oriented to hospital policies and general routines including ID bracelet, bed and alarms, visiting hours, pain management, procedures, bathroom and other care routines, personal items, smoking policy, room service/diet, and visiting hours. Information on how to activate the Rapid Response Team has been discussed. Patient/Family are encouraged to report perceived risks to care and to ask questions if they do not understand what they are told or what they should do.
[2025-01-09 18:47] LABS: Polychromasia 1+; Schistocytes None Seen
[2025-01-09 18:48] LABS: Anisocytosis 2+; Hypochromasia 1+
[2025-01-09 18:54] LABS: Troponin I 0.200 ng/mL (0.000-0.034)
[2025-01-09] MEDS: DORNASE ALFA INH SOLN 1 MG/ML 2.5 ML AMP 2.5 MG INHALATION (18:55)
[2025-01-09 19:20] LABS: Alveolar/Arterial O2 Gradient 634.5 mmHg; Carboxyhemoglobin 2.0 % THb (0-2.0); Fractional Inspired Oxygen 100 %; HCO3 ABG 26.4 mEq/l (22.0-26.0); Methemoglobin ABG 0.2 %THb (0-1.5); Oxygen Content ABG 20.4 %vol (16.0-22.0); Oxygen Saturation ABG 96.3 % (95.0-100.0); PO2 ABG 101.2 mmHg (80.0-100.0); PO2 FiO2 Ratio Arterial Blood 1.01 %; Reduced Hemoglobin 3.6 %THb (0-5.0)
[2025-01-09 19:21] LABS: PCO2 ABG 66.0 mmHg (35.0-45.0); Site Drawn ARTLINE
[2025-01-09 19:22] LABS: Arterial Blood Gas Tidal Volume 500 ml; Arterial Blood Gas Ventilator rate 22 /MIN
[2025-01-09] MEDS: IPRATROPIUM 0.5 MG/ALBUTEROL SULFATE 2.5 MG AMPUL.NEB 3 ML INHALATION (19:27)
[2025-01-09 19:34] LABS: Urine Eos QC 2nd Tech Confirmed
[2025-01-09] MEDS: HEPARIN SOD/D5W 100 UNITS/ML 25,000 UNITS/250 ML BAG 15 UNITS IV CONT (19:37)
[2025-01-09] MEDS: LACTATED RINGERS 1,000 ML 100 ML IV CONT (19:38)
--- NOTE | 2025-01-09 20:07 | PC.NURSE ---
Patient received to the floor at 1527, bedside report given by Jenny FELICIANO. Patient already intubated and OG in place with IVs in both ACs. Central line access obtained upon arrival to ICU-8. The patient then received an arterial line to his right radial artery. Bronchoscopy was then performed at bedside by Dr. Zamarripa. Blood cultures obtained, so antibiotics were initiated. Levophed was also initiated after the bronchoscopy was performed. See charting for any further details.
--- NOTE | 2025-01-09 20:13 | P.HP_ITS ---
H&P: HPI History of Present Illness Date/Time: 01/09/25 20:13 Chief Complaint: Agonal Breathing, Unresponsive Narrative: 64 y/o M with PMH of chronic hypoxic/hypercapnic respiratory failure on 3 L home oxygen, bipolar disorder, CHF, COPD, tobacco abuse, polysubstance abuse presents here unresponsive with agonal respirations. The following HPI was obtained through chart review and 's report to the senior c web developer. According to the patient's , the patient has been lying in bed for the past 2 days with altered breathing that was described/consistent with agonal respirations. Change in breathing was accompanied by altered mental status. The symptoms prompted a call to 911. Upon EMS arrival the patient was found to be hypoxic. He patient was ventilated with a bag valve mask. Despite intervention the patient remained hypoxic at 80%. Upon arrival to the emergency department the patient's GCS was 3, remained hypoxic in the mid 80's, and .blood pressure was soft at 91/74. He was emergently intubated and given a 1L bolus. Despite intubation and mechanical ventilation, the patient was satting in the 60's and 70's. The senior c web developer was consulted and requested to evaluate the patient in the ED. He was then given a dose of rocuronium and he was manually bagged. He was given history of an additional 1L bolus and emergently transferred to the ICU. Upon arrival to the ICU, a chest x-ray was repeated and showed occlusion of the right mainstem bronchus with increasing right lung opacification. A central line and an A-line were urgently placed. Patient then underwent a bronchoscopy which showed significant thick yellow to white mucus plugs in the right upper and lower lobes. Post suctioning/bronchoscopy the patient's O2 saturation proved to 95-99%. Initial VS at presentation: 99.3? F, HR 105, R 25, 145/94, and 85% on BVM. Now intubated on mechanical ventilation. ED workup showed: WBC 15.7, hemoglobin 15.8 (12.0 on 07/08/2024), INR 1.3, ABG showed a pH of 7.21 to/CO2 50.2/0-54.1/O2 saturation 80.8% on ventilator, potassium 6.1, creatinine 3.81 and GFR 16 (1.09 and GFR >60 on 07/08/2024), lactic 2.5, magnesium 2.9, calcium 8.1, AST 660, ALT 692, total bilirubin 1.2, initial troponin 0.215, BNP >10046, and TSH within normal limits at 2.28. UA showed 1+ protein, trace ketones, 1+ bilirubin. MRSA positive. UDS positive for cocaine and cannabinoids. Ethanol negative. Viral PCR negative. CT brain was negative for acute intracranial hemorrhage or mass effect, probable chronic ischemic white matter change. CTA chest/abdomen/pelvis (PE protocol) showed no evidence of pulmonary embolism, extensive right upper lobe and lower lobe airspace disease consistent with pneumonia. Bilateral pleural effusion, right greater than left. Hyperdense right renal masses, cannot exclude renal cell carcinoma, consider correlation with MRI abdomen with contrast. Small pericardial pericardial effusion. Review of Systems Review of Systems: ROS unobtainable: Yes unobtainable due to endotracheal tube, unobtainable due to medical condition and unobtainable due to mental status PMFSH Past Medical History Medical History Atrial fibrillation Continuous tobacco abuse Chronic respiratory failure with hypoxia and hypercapnia On home O2 of 3 L Bipolar disorder CHF (congestive heart failure) COPD (chronic obstructive pulmonary disease) Surgical History Surgical History No significant past surgical history Family History Family History Other Unknown family medical history Social History Social History Social History: Code status: Full code (per EMR) Surrogate decision maker: Aura Campos (sister) Smoking packs per day: 1.5 Smoking cigarettes per day: 30.0 Years smoked: 40 Smoking pack-years: 60.00 Smoking status: Current every day smoker Tobacco type: cigarettes Alcohol intake: never Substance use type: marijuana Last use: 07/02/2024 Spiritual care concerns: No Meds Home Medications and Allergies Home Medications ?Medication ?Instructions ?Recorded ?Confirmed ?Type albuterol sulfate 90 mcg/actuation 2 puff inhalation Q4-6H PRN 07/03/24 07/03/24 History aerosol inhaler (Ventolin HFA) Shortness of breath apixaban 5 mg tablet (Eliquis) 5 mg PO BID 07/03/24 07/03/24 History aripiprazole 2 mg tablet 2 mg PO DAILY 07/03/24 07/03/24 History budesonide-formoterol HFA 160 2 puff inhalation Q12H 07/03/24 07/03/24 History mcg-4.5 mcg/actuation aerosol inhaler (Symbicort) diltiazem HCl 360 mg 360 mg PO DAILY 07/03/24 07/03/24 History capsule,extended release 24 hr furosemide 40 mg tablet 40 mg PO DAILY 07/03/24 07/03/24 History losartan 50 mg tablet 50 mg PO DAILY 07/03/24 07/03/24 History mometasone-formoterol HFA 200 2 puff inhalation BID 07/03/24 07/03/24 History mcg-5 mcg/actuation aerosol inhaler (Dulera) umeclidinium 62.5 mcg/actuation 1 inh inhalation ONCE 07/03/24 07/03/24 History blister powder for inhalation (Incruse Ellipta) Allergies Allergy/AdvReac Type Severity Reaction Status Date / Time piroxicam Allergy Unknown Unknown Verified 07/03/24 17:10 Vital Signs Vital Signs - 24 hr 01/09/25 12:55 01/09/25 13:20 01/09/25 13:21 Temperature 99.3 F Pulse Rate 105 H 103 H 100 Respiratory Rate 25 H Blood Pressure 145/94 H Pulse Oximetry 85 L 77 L Oxygen Delivery Bag Valve Mask Oxygen Flow Rate 15 Fraction of Inspired Oxygen 01/09/25 13:26 01/09/25 13:26 01/09/25 13:30 Temperature 99.7 F H 99.8 F H 100.1 F H Pulse Rate 101 H 105 H Respiratory Rate 11 L 9 L Blood Pressure 104/63 104/63 98/62 L Pulse Oximetry 80 L Oxygen Delivery Oxygen Flow Rate Fraction of Inspired Oxygen 01/09/25 13:31 01/09/25 13:32 01/09/25 13:35 Temperature 100.2 F H 100.2 F H Pulse Rate 113 H 107 H Respiratory Rate 16 16 Blood Pressure 91/74 L Pulse Oximetry 84 L 88 L Oxygen Delivery Bag Valve Mask Oxygen Flow Rate 15 Fraction of Inspired Oxygen 01/09/25 13:41 01/09/25 14:07 01/09/25 14:18 Temperature 100.3 F H Pulse Rate 91 96 Respiratory Rate 16 16 Blood Pressure 96/48 L Pulse Oximetry 80 L 93 Oxygen Delivery Mechanical Ventilation Oxygen Flow Rate Fraction of Inspired Oxygen 100 01/09/25 14:21 01/09/25 14:25 01/09/25 14:52 Temperature 100.0 F H Pulse Rate 97 88 89 Respiratory Rate 16 17 Blood Pressure 115/78 107/74 Pulse Oximetry 91 76 L Oxygen Delivery Oxygen Flow Rate Fraction of Inspired Oxygen 01/09/25 15:18 01/09/25 15:36 01/09/25 16:00 Temperature 100.1 F H 99.7 F H Pulse Rate 93 91 87 Respiratory Rate 20 22 H 22 H Blood Pressure 104/80 137/87 Pulse Oximetry 68 L Oxygen Delivery Oxygen Flow Rate Fraction of Inspired Oxygen 01/09/25 16:00 01/09/25 16:00 01/09/25 16:00 Temperature Pulse Rate 87 86 86 Respiratory Rate 22 H 22 H Blood Pressure Pulse Oximetry Oxygen Delivery Oxygen Flow Rate Fraction of Inspired Oxygen 01/09/25 16:00 01/09/25 17:52 01/09/25 18:00 Temperature 99.5 F Pulse Rate 96 89 Respiratory Rate 22 H Blood Pressure 143/87 H 135/77 Pulse Oximetry 97 Oxygen Delivery Mechanical Ventilation Oxygen Flow Rate Fraction of Inspired Oxygen 100 01/09/25 18:00 01/09/25 18:00 01/09/25 18:00 Temperature Pulse Rate 65 98 95 Respiratory Rate 20 22 H Blood Pressure Pulse Oximetry Oxygen Delivery Oxygen Flow Rate Fraction of Inspired Oxygen 01/09/25 18:00 01/09/25 18:10 01/09/25 19:29 Temperature Pulse Rate 95 98 94 Respiratory Rate 22 H 22 H Blood Pressure 144/76 H Pulse Oximetry Oxygen Delivery Oxygen Flow Rate Fraction of Inspired Oxygen 01/09/25 19:40 01/09/25 19:50 Temperature Pulse Rate 96 94 Respiratory Rate 24 H Blood Pressure Pulse Oximetry 97 Oxygen Delivery Mechanical Ventilation Oxygen Flow Rate Fraction of Inspired Oxygen 100 Exam Const: General: comfortable and no acute distress Other: , male, intubated and sedated. HENMT: Face/Nose/Sinus: Normal nares present Mouth: Yes moist mucous membranes Other: ETT and OG in place Eyes: General: appearance normal, both eyes and all related structures Sclera: sclerae normal Pupils: Equal, round and reactive pupils present EOM: EOMs intact bilaterally Resp: Other: Coarse breath sounds bilaterally, right greater than left. Diminished at bases. Tolerating that well. No distress noted. Cardio: Rate: regular rate Rhythm: abnormal rhythm Other: No murmur or rub. GI: Other: Abdomen soft, nondistended, nontender. Hypoactive bowel sounds in all quadrants. Urinary Catheter: Urinary Catheter: patent and draining Skin: General skin exam: normal color and no rashes or lesions noted Wounds: no wounds Neuro: Other: Intubated and sedated. Does not open eyes or follow commands. Does not withdraw from pain. GCS 3 upon arrival. Extrem: General: normal to inspection Psych: Other: Unable to assess. H&P: Results Labs Labs: Short CBC 01/09/25 01/09/25 Range/Units 13:17 18:16 WBC 15.7 H 13.4 H (4.5-10.0) K/mm3 Hgb 15.8 D 14.3 (14.0-18.0) g/dL Hct 53.1 H 47.6 (42.0-52.0) % Plt Count 323 D 248 (150-375) k/mm3 BMP 01/09/25 01/09/25 13:17 18:16 Sodium 140 143 Potassium 6.1 H* 4.6 Chloride 101 104 Carbon Dioxide 27 28 BUN 79 H D 81 H Creatinine 3.81 H 3.15 H Glucose 124 H 136 H Calcium 8.1 L 7.6 L Cardiac Enzymes 01/09/25 01/09/25 Range/Units 13:17 18:16 Total Creatine Kinase 99 (55-170) U/L Troponin I 0.215 H* 0.200 H* (0.000-0.034) ng/mL Liver Function 01/09/25 01/09/25 Range/Units 13:17 18:16 Total Bilirubin 1.2 0.7 (0.2-1.3) mg/dL AST 660 H 519 H (17-59) U/L ALT 692 H 605 H (6-50) U/L Alkaline Phosphatase 102 86 (38-126) U/L Albumin 4.1 3.2 L (3.5-5.1) g/dL Urine 01/09/25 Range/Units 13:23 Urine Color Dark yellow (Yellow) Urine Appearance Clear (Clear) Urine pH 5.0 (5.0-9.0) Ur Specific [place] 1.018 (1.001-1.035) Urine Protein 1+ H (Negative) mg/dL Urine Glucose (UA) Negative (Negative) mg/dL Assessment and Plan Assessment and plan (1) Acute hypoxic respiratory failure: Code(s): J96.01 - Acute respiratory failure with hypoxia Status: Acute Assessment and Plan: Presented with 2 days of altered mental status in agonal respirations. Significant hypoxic respiratory failure noted upon EMS arrival. Patient unable to be successfully oxygenated via BVM in the field. - emergently intubated on 01/09 due to GCS of 3 upon arrival. Despite intubation and mechanical ventilation, patient was unable to maintain a sat greater than 75%. - bronchoscopy on 01/09, procedure showed significant thick mucus plugs in the right mainstem, right upper lobe and right lower lobe. Suction and cleared most of the secretions with the bronchoscope. O2 saturations improved and now maintaining an O2 saturation greater than 92%. - Imaging showed multifocal pneumonia, patient started on a broad-spectrum antibiotics. - chest physiotherapy, Mucomyst and Pulmozyme nebulizers - DuoNebs and Solu-Medrol - admission to the ICU with senior c web developer consulted, see note Patient is to remain intubated and sedated with fentanyl and Versed. Follow ABGs. (2) Septic shock: Code(s): A41.9 - Sepsis, unspecified organism; R65.21 - Severe sepsis with septic shock Status: Acute Assessment and Plan: - meets SIRS criteria: HR greater than 90, RR greater than 20, WBC greater than 14. +significant hypoxia and mild hypotension. - currently requiring Levophed, continue to maintain map greater than 65% or systolic blood pressure greater than 100 - lactic acid: 2.5 ->1.5 - check procalcitonin - 30 mL/kg = 3L, given in ED - suspected source: pneumonia - started on cefepime, vancomycin, doxycycline, and Flagyl on 01/09 - blood cultures and sputum culture obtained on 01/09, follow - UA negative for infection - CXR: 1. Endotracheal tube tip 4.8 cm above the nadya. 2. Small bilateral pleural effusions with bibasilar opacities which could represent atelectasis or pneumonia. 3. Hyperexpansion of the left lung consistent with emphysema and volume loss in the right lung with patchy airspace opacities which could represent additional atelectasis or pneumonia. - chest/abdomen/pelvis CTA: 1. Extensive airspace disease of the right upper and lower lobe, consistent with pneumonia. 2: Bilateral pleural effusions, right greater than left. 3: Hypodense right renal masses. Cannot exclude renal cell carcinoma. Consider correlation with MRI abdomen with contrast. 4: Small pericardial effusion. - admitted to the ICU for close hemodynamic monitoring (3) Pneumonia: Qualifiers: Pneumonia type: due to unspecified organism Laterality: right Lung location: unspecified part of lung Qualified Code(s): J18.9 - Pneumonia, unspecified organism Code(s): J18.9 - Pneumonia, unspecified organism Status: Acute Assessment and Plan: - accompanied by septic shock - imaging demonstrated pneumonia of the right upper and lower lobe - started on cefepime, vancomycin, doxycycline, and Flagyl - MRSA PCR+ - Viral PCR negative - sputum culture obtained on 01/09, follow - currently requiring mechanical ventilation, continue with this time and follow ABGs - CPT and nebulizers - supportive care (4) Acute exacerbation of chronic obstructive pulmonary disease: Code(s): J44.1 - Chronic obstructive pulmonary disease with (acute) exacerbation Status: Acute Assessment and Plan: - chest physiotherapy per RT - Mucomyst and Pulmozyme nebulizer - DuoNebs - Symbicort inhaler - Solu-Medrol (5) Atrial fibrillation: Qualifiers: Atrial fibrillation type: unspecified Qualified Code(s): I48.91 - Unspecified atrial fibrillation Code(s): I48.91 - Unspecified atrial fibrillation Status: Acute Assessment and Plan: - history of atrial fibrillation/atrial flutter on apixaban - initial EKG showed AFib RVR - started on heparin gtt as the patient may require further procedures (pleural effusion noted, may need thoracentesis) (6) Polysubstance use disorder: Code(s): F19.90 - Other psychoactive substance use, unspecified, uncomplicated Status: Acute Assessment and Plan: - urine drug screen positive for cocaine and cannabis (7) Transaminitis: Code(s): R74.01 - Elevation of levels of liver transaminase levels Status: Acute Assessment and Plan: - AST 660, ALT 692, total bilirubin 1.2. Down trending with IV fluids. - check right upper quadrant ultrasound and hepatic panel - suspected to be secondary to hypoxia, hypotension, and septic shock - trend (8) Elevated troponin: Code(s): R79.89 - Other specified abnormal findings of blood chemistry Status: Acute Assessment and Plan: - troponin: 0.215 -> 0.200, 6 hour ordered - no changes noted on EKG, suspected to be secondary to demand - continue to trend troponin and obtain echo (9) CHF (congestive heart failure): Qualifiers: Heart failure type: unspecified Heart failure chronicity: chronic Qualified Code(s): I50.9 - Heart failure, unspecified Code(s): I50.9 - Heart failure, unspecified Status: Acute Assessment and Plan: - history of CHF, previous echo on 07/04/2024 showed normal systolic function with an EF of 50-55%. - BNP > 30,000 - monitor I&Os and renal function - does not appear volume overloaded on exam and imaging distal foot demonstrate pulmonary edema - check echo (10) Electrolyte imbalance: Code(s): E87.8 - Other disorders of electrolyte and fluid balance, not elsewhere classified Status: Acute Assessment and Plan: - K 6.1 >> 4.6 - calcium 8.1 in the setting of a normal albumin, when repeated 7.6/albumin 3.2. When corrected 8.3. Given 1G IVPB. - Mag 2.9 >> 2.5 Plan Diet: NPO GI Prophylaxis: PPI IV DVT Prophylaxis: Heparin gtt IV fluids: 3L bolus in ED -> Lines/Tubes: Peripheral IV, Right IJ central line, A-line, Fernández, OG Code Status: DNR Quality VTE Prophylaxis VTE prophylaxis: pharmacologic ordered Critical Care Time: I personally spent 35 minutes of direct patient care including (but not limited to) the physical examination, decision-making, bedside evaluation, review of medical records, review of labs and imaging, discussion with nursing staff and other providers for collaborative, critical care management of this patient. Hospitalist [facility] Advance Care Plan I have confirmed that the patient's Advanced Care Plan is present, code status is documented, or surrogate decision maker is listed in patient medical record.: Yes Medication Reconciliation I have utilized all available resources to obtain, update and review the patients current medications (includes all prescriptions, OTC, herbals, cannabis, and nutritional supplements).: Yes
[2025-01-09] MEDS: PANTOPRAZOLE SODIUM IV 40 MG VIAL IV PUSH (20:24)
[2025-01-09] MEDS: CENTRAL LINE FLUSH 10 ML IV PUSH ×2 (20:24→20:25)
[2025-01-09 22:39] LABS: Troponin I 0.212 ng/mL (0.000-0.034)
[2025-01-09 23:38] LABS: Procalcitonin 1.7 ng/mL
[2025-01-09 23:56] LABS: HAV RESULT Negative (Negative); Hepatitis B Core IgM Result Negative (Negative); Hepatitis B Surface Antigen Negative (Negative)
[2025-01-10] VITALS (52 sets, daily range): BP systolic 88–152; BP diastolic 47–90; PULSE 79–128; RESP 7–24; TEMP 37.1–37.9; O2SAT 96–100; BMI 29.6
--- NOTE | 2025-01-10 | ECHO_ITS ---
Patient Info Name: Jose De La Vega Age: 64 years : 1960 Gender: Male Ht: 72 in Wt: 225 lbs BSA: 2.30 m2 HR: 100 bpm BP: 109 / 79 mmHg Heart Rhythm: Atrial Fibrillation Technical Quality: Good Exam Date: 01/10/2025 9:32 AM Patient Status: I Admit Date: 01/09/2025 Exam Type: CA echo doppler color flow Complete two-dimensional, color flow and Doppler transthoracic echocardiogram is performed. Staff Referring Physician: Tam Zamarripa MD [facility] Medical: Sruthi Diaz Attending Provider: Ruth Ann Givens MD Summary 1. Complete two-dimensional, color flow and Doppler transthoracic echocardiogram is performed. 2. Somewhat challenging exam with patient on ventilator support. 3. Normal left ventricular size with overall good systolic function, paradoxical septal motion consistent with bundle branch block. 4. Right ventricular enlargement with systolic dysfunction. 5. Mild tricuspid regurgitation, estimated RV systolic pressure 51 mmHg. 6. Sclerotic aortic valve which exhibits preserved leaflet excursion. Left Ventricle Left ventricular chamber dimension is normal. Left ventricular systolic function is normal, estimated at 55-60. Left ventricular septal wall motion is abnormal with septal motion related to bundle branch block. Right Ventricle Right ventricular chamber dimension is mildly enlarged. Right ventricular systolic function is reduced. Left Atria Left atrial chamber dimension is normal. Right Atria Right atrial chamber dimension is mildly enlarged. Aortic Valve The aortic valve is trileaflet. There is mild aortic valve sclerosis. Pulmonic Valve The pulmonic valve is not well visualized. Mitral Valve The mitral valve has normal leaflets. Tricuspid Valve The tricuspid valve leaflets are normal. There is mild tricuspid valve regurgitation. Moderate pulmonary hypertension, estimated pulmonary arterial systolic pressure is 52 mmHg. Pericardium/Pleural The pericardium appears normal. Aorta The aortic root size at the sinus of Valsalva is normal. Left Ventricular Outflow Tract Name Value Normal LVOT 2D LVOT Diameter 2.0 cm LVOT Doppler LVOT Peak Velocity 136 cm/s LVOT Peak Gradient 5 mmHg LVOT Mean Gradient 3 mmHg LVOT VTI 26 cm LVOT VTI/AV VTI Ratio 0.7 LVOT Stroke Volume 83 ml LVOT CO 14.8 l/min LVOT CI 6.4 l/min/m2 Pulmonic Valve Name Value Normal PV Doppler PV Peak Velocity 128 cm/s PV Peak Gradient 7 mmHg Mitral Valve Name Value Normal MV Diastolic Function MV E Peak Velocity 68 cm/s MV A Peak Velocity 109 cm/s MV E/A 0.6 MV Decel Time (PW) 290 ms MV Annular TDI MV E/e' (Septal) 20.2 MV E/e' (Lateral) 8.2 MV E/e' (Average) 14.2 Tricuspid Valve Name Value Normal TV Regurgitation Doppler TR Peak Velocity 324 cm/s TR Peak Gradient 42 mmHg Estimated PAP/RSVP RA Pressure 10 mmHg <=5 PA Systolic Pressure 52 mmHg <36 RV Systolic Pressure 52 mmHg <36 TV Annular TDI TV Lateral Sonya s' Velocity 9.5 cm/s >=9.5 Aorta Name Value Normal Ascending Aorta Ao Root Diameter (MM) 3.5 cm Ao Root Diam Index (MM) 1.5 cm/m2 Aortic Valve Name Value Normal AV Doppler AV Peak Velocity 204 cm/s AV Peak Gradient 11 mmHg AV Mean Gradient 7 mmHg AV VTI 36 cm AV Area (Cont Eq VTI) 2.3 cm2 >=3.0 AV Area (Cont Eq Randy) 2.2 cm2 AV DI (Randy) 0.67 AV Regurgitation 2D LVOT Area 3.2 cm2 Ventricles Name Value Normal LV Dimensions 2D/MM IVS Diastolic Thickness (2D) 0.9 cm 0.6-1.0 LVID Diastole (2D) 4.9 cm 4.2-5.8 LVIW Diastolic Thickness (2D) 0.9 cm 0.6-1.0 LVID Systole (2D) 3.7 cm 2.5-4.0 LVOT Diameter 2.0 cm LV Mass (2D Cubed) 151.11 g 88.00-224.00 LV Mass Index (2D Cubed) 66 g/m2 49-115 Relative Wall Thickness (2D) 0.37 <=0.42 LV Fractional Shortening/Ejection Fraction 2D/MM LV Fractional Shortening (2D) 24 % 25-43 LV EF (2D Teichholz) 48 % LV Diastolic Volume (4C MOD) 128 ml LV EF (4C MOD) 62 % LV Diastolic Volume (2C MOD) 148 ml LV EF (2C MOD) 57 % LV Diastolic Volume (BP MOD) 139 ml 62-150 LV Diastolic Volume Index (BP MOD) 61 ml/m2 34-74 LV Systolic Volume (BP MOD) 55 ml 21-61 LV Systolic Volume Index (BP MOD) 24 ml/m2 11-31 LV EF (BP MOD) 61 % 52-72 LV Diastolic Length (4C) 9.2 cm LV Systolic Length (4C) 7.4 cm LV Stroke Volume (4C MOD) 80 ml Atria Name Value Normal LA Dimensions LA Dimension (MM) 0.0 cm 3.0-4.0 LA Volume (4C A-L) 92 ml LA Volume (BP A-L) 76 ml RA Dimensions RA Systolic Major [place] Length (4C) 5.0 cm 2.1-2.7 RA Area (4C) 20.4 cm2 <=18.0 Report Signatures
--- NOTE | 2025-01-10 01:48 | PCRCNOTE ---
Pt ordered on inhalers. Patient is on a ventilator.
[2025-01-10] MEDS: ACETYLCYSTEINE 20% INHAL SOLN 800 MG/4 ML VIAL 200 MG INHALATION ×4 (01:49→20:37)
[2025-01-10] MEDS: IPRATROPIUM 0.5 MG/ALBUTEROL SULFATE 2.5 MG AMPUL.NEB 3 ML INHALATION ×4 (01:49→20:37)
[2025-01-10 01:53] LABS: INR 1.3; Prothrombin Time 16.2 Seconds (11.1-14.7)
[2025-01-10 01:55] LABS: Partial Thromboplastin Time 97.6 Seconds (22.3-36.8)
[2025-01-10] MEDS: metroNIDAZOLE 500 MG/ISO 100ML 500 MG/100 ML BAG 100 MG IVPB ×3 (02:38→18:20)
[2025-01-10 04:59] LABS: Alveolar/Arterial O2 Gradient 337.2 mmHg; Carboxyhemoglobin 0.7 % THb (0-2.0); Fractional Inspired Oxygen 70 %; HCO3 ABG 24.4 mEq/l (22.0-26.0); Methemoglobin ABG 0.2 %THb (0-1.5); Oxygen Content ABG 20.4 %vol (16.0-22.0); Oxygen Saturation ABG 97.6 % (95.0-100.0); PCO2 ABG 48.7 mmHg (35.0-45.0); PO2 ABG 109.6 mmHg (80.0-100.0); PO2 FiO2 Ratio Arterial Blood 1.57 %; Reduced Hemoglobin 2.2 %THb (0-5.0)
[2025-01-10 05:00] LABS: Arterial Blood Gas Tidal Volume 500 ml; Arterial Blood Gas Ventilator rate 24 /MIN; Site Drawn ARTLINE
[2025-01-10 05:01] LABS: Hematocrit 45.4 % (42.0-52.0); Hemoglobin 13.9 g/dL (14.0-18.0); Mean Corpuscular HGB Conc 30.6 g/dl (32-36); Mean Corpuscular Hemoglobin 29.6 pg (26-34); Mean Corpuscular Volume 96.8 fl (80-100); Platelet Count Result 195 k/mm3 (150-375); Red Blood Count 4.69 M/mm3 (4.6-6.20); White Blood Count 13.9 K/mm3 (4.5-10.0)
[2025-01-10] MEDS: CENTRAL LINE FLUSH 10 ML IV PUSH ×6 (05:14→21:22)
[2025-01-10] MEDS: CEFEPIME 1 GM in SODIUM CHLORIDE 0.9% IV 50 ML 100 ML IVPB ×2 (05:14→17:10)
[2025-01-10 05:15] LABS: Alanine Aminotransferase 539 U/L (6-50); Albumin Level 3.0 g/dL (3.5-5.1); Alkaline Phosphatase 78 U/L (38-126); Anion Gap 10 mmol/L (4-12); Aspartate Amino Transferase 278 U/L (17-59); Bilirubin,Total 0.5 mg/dL (0.2-1.3); Blood Urea Nitrogen 85 mg/dL (9-20); Calcium 7.9 mg/dL (8.4-10.2); Carbon Dioxide 23 mmol/L (22-30); Chloride 107 mmol/L (98-107); Estimated CRCL calculation 26 ml/min; Estimated Glomerular Filt Rate 20; Glucose 182 mg/dL (65-110); Magnesium 2.5 mg/dL (1.6-2.3); Potassium 4.7 mmol/L (3.4-5.0); Sodium 140 mmol/L (137-145); Total Protein 5.7 g/dL (6.3-8.2)
[2025-01-10 05:23] LABS: Band Neutrophils Percent 5 % (0-6); Lymphocytes Absolute Manual 0.13 K/mm3 (1.1-4.5); Lymphocytes Percent Manual 1 % (18-44); Monocytes Absolute Manual 0.27 K/mm3 (0.1-0.90); Monocytes Percent Manual 2 % (3-9); Neutrophils Absolute Manual 13.48 K/mm3 (1.3-6.7); Neutrophils Percent Manual 92 % (46-73); Total Cells Counted 100
[2025-01-10 05:24] LABS: Anisocytosis 1+; Polychromasia 1+
[2025-01-10 05:25] LABS: Schistocytes None Seen
[2025-01-10 05:30] LABS: CRP 16.2 mg/dL (<1.0)
[2025-01-10] MEDS: LACTATED RINGERS 1,000 ML 100 ML IV CONT (05:35)
[2025-01-10] MEDS: DOXYCYCLINE IV 100 MG in SODIUM CHLORIDE 0.9% IV 100 ML IVPB ×2 (06:11→18:19)
[2025-01-10] MEDS: FLUTICASONE/SALMETEROL 115-21 MCG INHALER 1 PUFF 2 PUFF INHALATION (08:00)
[2025-01-10] MEDS: PANTOPRAZOLE SODIUM IV 40 MG VIAL IV PUSH ×2 (08:17→21:21)
[2025-01-10 08:25] LABS: Partial Thromboplastin Time 61.6 Seconds (22.3-36.8)
[2025-01-10 09:23] LABS: Ammonia < 9 umol/L (9-30)
[2025-01-10] MEDS: HEPARIN SOD/D5W 100 UNITS/ML 25,000 UNITS/250 ML BAG 17 UNITS IV CONT (11:12)
--- NOTE | 2025-01-10 11:45 | WPDINTPN ---
Progress Note: A&P Assessment and Plan (1) Acute hypoxic respiratory failure: Code(s): J96.01 - Acute respiratory failure with hypoxia Status: Acute Assessment and Plan: 01/09: Patient presented the ED via EMS after the called 911 as patient has been laying in bed with agonal breathing for the last 2 days, upon arrival of the EMS patient was unresponsive, with agonal breaths. Bag-mask ventilation was started patient was hypotensive, in the ER patient had a GCS of 3 and was emergently intubated. Post intubation patient is on O2 sats were in the upper 60s to 70s. Patient was in a PEEP of 15 and 100% FiO2 -01/09: I was asked to come down to the ER to evaluate the patient, patient was given rocuronium, and revealed emergently to the ICU -remains on CMV mode of ventilation, peep of 14, 100% FiO2 -emergent bronch was performed in the ICU with significant thick mucus plugs in the right mainstem, right upper lobe and right lower lobe. Suction and cleared most of the secretions with the bronchoscope. -O2 sats improved to 95-99% -chest x-ray and ABGs reviewed -chest physiotherapy per RT -continue Mucomyst and Pulmozyme nebulizer -continue DuoNebs -continue Symbicort inhaler -continue Solu-Medrol -sedated with fentanyl and Versed infusion, maintain RASS of 0 to -2, daily SBT and SAT 01/09: CT PE protocol, abdomen and pelvis with no evidence of pulmonary embolism, extensive right upper lobe and lower lobe airspace disease consistent with pneumonia. Bilateral pleural effusion, right greater than left. Hyperdense right renal masses, cannot exclude renal cell carcinoma, consider correlation with MRI abdomen with contrast. Small pericardial (2) Septic shock: Code(s): A41.9 - Sepsis, unspecified organism; R65.21 - Severe sepsis with septic shock Status: Acute Assessment and Plan: Patient with hypotension, acute respiratory failure, lactic acidosis, tachycardia -UA was negative -patient given 2 L IV fluid bolus -continue maintenance IV fluid -lactic acid has normalized -OFF Levophed, will maintain MAP > 65 mm or SBP > 100 mmHg at all times for adequate end organ perfusion -started on cefepime, vancomycin, doxycycline, Flagyl (01/09) -01/09: Blood culture -01/09: Sputum culture (3) Pneumonia: Qualifiers: Laterality: right Lung location: unspecified part of lung Pneumonia type: due to unspecified organism Qualified Code(s): J18.9 - Pneumonia, unspecified organism Code(s): J18.9 - Pneumonia, unspecified organism Status: Acute Assessment and Plan: Likely pneumonia on of the right upper and lower lobe -COVID, RSV and influenza were negative -continue antibiotics as above -currently on mechanical ventilation (4) Acute exacerbation of chronic obstructive pulmonary disease: Code(s): J44.1 - Chronic obstructive pulmonary disease with (acute) exacerbation Status: Acute Assessment and Plan: History of is COPD with emphysema seen on CT scan of the chest -continue bronchodilators as above (5) Atrial fibrillation: Qualifiers: Atrial fibrillation type: unspecified Qualified Code(s): I48.91 - Unspecified atrial fibrillation Code(s): I48.91 - Unspecified atrial fibrillation Status: Acute Assessment and Plan: History of atrial flutter/fibrillation patient is on apixaban at home -currently in AFib, RVR with heart rates in the 100-110s -continue heparin infusion as patient may require further procedures such thoracentesis (6) Polysubstance use disorder: Code(s): F19.90 - Other psychoactive substance use, unspecified, uncomplicated Status: Acute Assessment and Plan: Urine tox screen was positive for cannabis and cocaine (7) Transaminitis: Code(s): R74.01 - Elevation of levels of liver transaminase levels Status: Acute Assessment and Plan: Significantly elevated LFTs, -will obtain right upper quadrant ultrasound and hepatitis panel -could also be related to hypoxia, hypotension/shock -liver enzymes trending down gradually -continue to monitor liver function tests (8) Elevated troponin: Code(s): R79.89 - Other specified abnormal findings of blood chemistry Status: Acute Assessment and Plan: Elevated troponin 0.215 -could be related to type 2 infarct, is EKG did not show any ST elevation -will trend troponin -echocardiogram has been ordered and pending (9) Current smoker: Code(s): F17.200 - Nicotine dependence, unspecified, uncomplicated Status: Acute Assessment and Plan: Will counselling psychologist patient on tobacco cessation once he is extubated (10) CHF (congestive heart failure): Qualifiers: Heart failure type: unspecified Heart failure chronicity: chronic Qualified Code(s): I50.9 - Heart failure, unspecified Code(s): I50.9 - Heart failure, unspecified Status: Acute Assessment and Plan: Patient has a history of CHF, likely HFpEF -proBNP > 75072 -echocardiogram has been ordered -chest x-ray does not show pulmonary edema (11) Electrolyte imbalance: Code(s): E87.8 - Other disorders of electrolyte and fluid balance, not elsewhere classified Status: Acute Assessment and Plan: Hyperkalemia, initial potassium 6.1 in the ER -potassium improved this morning Plan DVT prophylaxis: Heparin infusion Stress ulcer prophylaxis: Protonix Nutrition: Will start tube feed Code Status: DNR Critical Care Time Spent: 36 minutes Discussed with Aura, sister in rounds, patient lives with her and she is the POA. She did state that he was sleeping for 1.5 to 2 days and did not wake up she she called EMS. She also noted thick secretions on his pillowcase. He does smoke marijuana but she is unaware how he got cocaine, he must have gone out and got some cocaine she states. He has stopped using his oxygen a few months back by himself as he stated he does not need it anymore. He used to be on 5 L nasal cannula at home. I discussed with her at length regarding what happened to the patient and now hypoxic he was creatinine to a bronchoscopy emergently to improve his oxygen levels. She did reiterate that he is a DNR. Due to a high probability of clinically significant, life threatening deterioration, the patient required my highest level of preparedness to intervene emergently and I personally spent this critical care time directly and personally managing the patient. This critical care time included obtaining a history; examining the patient; pulse oximetry; ordering and review of studies; arranging urgent treatment with development of a management plan; evaluation of patient's response to treatment; frequent reassessment; and discussions with other providers. It was exclusive of separately billable procedures and treating other patients and teaching time. Please see Assessment and Plan section and the rest of the note for further information on patient assessment and treatment This dictation may have been done utilizing a voice recognition system. Attempts have been made to correct errors. However, there may be uncorrected grammatical, spelling, and recognitions errors present. Subjective Date/time seen: 01/10/25 11:45 Interval history: Reason for consult: Acute hypoxic respiratory failure, altered mental status, pneumonia, acute kidney injury, hyperkalemia, severe sepsis/shock, transaminitis 01/09: Bronchoscopy 01/10/2025: Patient seen and examined the ICU, remains intubated on CMV mode of ventilation, peep of 14, 70% FiO2, sedated with fentanyl and Versed infusion. Patient does open his eyes and follows simple commands so in lower extremities. Has been off Levophed. Urine output has been adequate, patient is afebrile, hemodynamically stable. Lactic acid is 2.0, LFTs trending down, creatinine slightly better. Review of Systems Review of Systems: ROS unobtainable: Yes unobtainable due to endotracheal tube, unobtainable due to medical condition and unobtainable due to mental status Exam Narrative: General: Patient intubated and sedated, in no acute distress at this time HEENT:? Pupils equally reactive, sclera is clear, ETT in place Neck:? Supple Respiratory:? Coarse breath sounds bilaterally R > L, decreased breath sounds at right base, distant breath sounds Cardiac:? Irregularly irregular, tachycardia Abdomen:? Soft, nontender, nondistended, hypoactive bowel sounds Extremities:? Extremities are warm, palpable pedal pulse Neuro:? Patient intubated, sedated, patient did open his eyes, follows simple commands in lower lower extremities but none in the upper extremities Skin:? No skin lesions noted Psych:? Unable to assess at this time Objective Data Vital Signs Vital Signs: Vital Signs - 24 hr 01/09/25 12:55 01/09/25 13:20 01/09/25 13:21 Temperature 99.3 F Pulse Rate 105 H 103 H 100 Respiratory Rate 25 H Blood Pressure 145/94 H Pulse Oximetry 85 L 77 L Oxygen Delivery Bag Valve Mask Oxygen Flow Rate 15 Fraction of Inspired Oxygen 01/09/25 13:26 01/09/25 13:26 01/09/25 13:30 Temperature 99.7 F H 99.8 F H 100.1 F H Pulse Rate 101 H 105 H Respiratory Rate 11 L 9 L Blood Pressure 104/63 104/63 98/62 L Pulse Oximetry 80 L Oxygen Delivery Oxygen Flow Rate Fraction of Inspired Oxygen 01/09/25 13:31 01/09/25 13:32 01/09/25 13:35 Temperature 100.2 F H 100.2 F H Pulse Rate 113 H 107 H Respiratory Rate 16 16 Blood Pressure 91/74 L Pulse Oximetry 84 L 88 L Oxygen Delivery Bag Valve Mask Oxygen Flow Rate 15 Fraction of Inspired Oxygen 01/09/25 13:41 01/09/25 14:07 01/09/25 14:18 Temperature 100.3 F H Pulse Rate 91 96 Respiratory Rate 16 16 Blood Pressure 96/48 L Pulse Oximetry 80 L 93 Oxygen Delivery Mechanical Ventilation Oxygen Flow Rate Fraction of Inspired Oxygen 100 01/09/25 14:21 01/09/25 14:25 01/09/25 14:52 Temperature 100.0 F H Pulse Rate 97 88 89 Respiratory Rate 16 17 Blood Pressure 115/78 107/74 Pulse Oximetry 91 76 L Oxygen Delivery Oxygen Flow Rate Fraction of Inspired Oxygen 01/09/25 15:18 01/09/25 15:36 01/09/25 16:00 Temperature 100.1 F H 99.7 F H Pulse Rate 93 91 87 Respiratory Rate 20 22 H 22 H Blood Pressure 104/80 137/87 Pulse Oximetry 68 L Oxygen Delivery Oxygen Flow Rate Fraction of Inspired Oxygen 01/09/25 16:00 01/09/25 16:00 01/09/25 16:00 Temperature Pulse Rate 87 86 86 Respiratory Rate 22 H 22 H Blood Pressure Pulse Oximetry Oxygen Delivery Oxygen Flow Rate Fraction of Inspired Oxygen 01/09/25 16:00 01/09/25 17:52 01/09/25 18:00 Temperature 99.5 F Pulse Rate 96 89 Respiratory Rate 22 H Blood Pressure 143/87 H 135/77 Pulse Oximetry 97 Oxygen Delivery Mechanical Ventilation Oxygen Flow Rate Fraction of Inspired Oxygen 100 01/09/25 18:00 01/09/25 18:00 01/09/25 18:00 Temperature Pulse Rate 65 98 95 Respiratory Rate 20 22 H Blood Pressure Pulse Oximetry Oxygen Delivery Oxygen Flow Rate Fraction of Inspired Oxygen 01/09/25 18:00 01/09/25 18:10 01/09/25 19:29 Temperature Pulse Rate 95 98 94 Respiratory Rate 22 H 22 H Blood Pressure 144/76 H Pulse Oximetry Oxygen Delivery Oxygen Flow Rate Fraction of Inspired Oxygen 01/09/25 19:40 01/09/25 19:50 01/09/25 20:00 Temperature Pulse Rate 96 94 95 Respiratory Rate 24 H Blood Pressure 132/96 H Pulse Oximetry 97 Oxygen Delivery Mechanical Ventilation Oxygen Flow Rate Fraction of Inspired Oxygen 100 01/09/25 20:00 01/09/25 20:00 01/09/25 20:00 Temperature 99.3 F Pulse Rate 96 95 107 H Respiratory Rate 24 H 24 H 24 H Blood Pressure 132/96 H Pulse Oximetry 96 96 Oxygen Delivery Mechanical Ventilation Oxygen Flow Rate Fraction of Inspired Oxygen 85 01/09/25 20:00 01/09/25 20:30 01/09/25 20:51 Temperature Pulse Rate 94 94 96 Respiratory Rate 24 H Blood Pressure 121/86 Pulse Oximetry Oxygen Delivery Oxygen Flow Rate Fraction of Inspired Oxygen 01/09/25 20:53 01/09/25 21:00 01/09/25 22:00 Temperature 99.2 F 99.3 F Pulse Rate 107 H 98 94 Respiratory Rate 24 H 24 H Blood Pressure 135/73 138/76 123/72 Pulse Oximetry 98 95 Oxygen Delivery Oxygen Flow Rate Fraction of Inspired Oxygen 01/09/25 22:00 01/09/25 22:00 01/09/25 22:00 Temperature Pulse Rate 96 94 94 Respiratory Rate 24 H 24 H Blood Pressure 123/72 Pulse Oximetry Oxygen Delivery Oxygen Flow Rate Fraction of Inspired Oxygen 01/09/25 22:00 01/09/25 22:20 01/09/25 23:00 Temperature 99.4 F Pulse Rate 94 91 95 Respiratory Rate 24 H Blood Pressure 91/50 L 99/55 L Pulse Oximetry 97 Oxygen Delivery Oxygen Flow Rate Fraction of Inspired Oxygen 01/09/25 23:45 01/10/25 00:00 01/10/25 00:00 Temperature 99.5 F Pulse Rate 93 79 Respiratory Rate 24 H Blood Pressure 87/50 L 96/52 L Pulse Oximetry 97 Oxygen Delivery Oxygen Flow Rate Fraction of Inspired Oxygen 75 01/10/25 00:00 01/10/25 00:00 01/10/25 00:01 Temperature Pulse Rate 79 93 79 Respiratory Rate 24 H Blood Pressure 106/67 Pulse Oximetry 97 Oxygen Delivery Mechanical Ventilation Oxygen Flow Rate Fraction of Inspired Oxygen 75 01/10/25 00:01 01/10/25 00:01 01/10/25 01:00 Temperature 99.2 F Pulse Rate 79 79 83 Respiratory Rate 24 H 24 H 24 H Blood Pressure 117/70 Pulse Oximetry 96 Oxygen Delivery Oxygen Flow Rate Fraction of Inspired Oxygen 01/10/25 01:49 01/10/25 01:50 01/10/25 02:00 Temperature Pulse Rate 110 H 93 98 Respiratory Rate 24 H Blood Pressure Pulse Oximetry 98 Oxygen Delivery Mechanical Ventilation Oxygen Flow Rate Fraction of Inspired Oxygen 70 01/10/25 02:00 01/10/25 02:00 01/10/25 02:00 Temperature 99.3 F Pulse Rate 88 80 88 Respiratory Rate 24 H 24 H Blood Pressure 99/74 L 99/74 L Pulse Oximetry 97 Oxygen Delivery Oxygen Flow Rate Fraction of Inspired Oxygen 01/10/25 02:00 01/10/25 02:01 01/10/25 02:30 Temperature Pulse Rate 80 85 89 Respiratory Rate 24 H 24 H Blood Pressure 118/81 Pulse Oximetry Oxygen Delivery Oxygen Flow Rate Fraction of Inspired Oxygen 01/10/25 03:00 01/10/25 03:00 01/10/25 03:44 Temperature 99.3 F Pulse Rate 95 94 Respiratory Rate 24 H 24 H Blood Pressure 113/63 Pulse Oximetry 98 Oxygen Delivery Oxygen Flow Rate Fraction of Inspired Oxygen 70 01/10/25 03:44 01/10/25 04:00 01/10/25 04:00 Temperature 99.3 F Pulse Rate 94 97 97 Respiratory Rate 24 H 24 H Blood Pressure 116/63 116/63 Pulse Oximetry 98 97 Oxygen Delivery Mechanical Ventilation Oxygen Flow Rate Fraction of Inspired Oxygen 70 01/10/25 04:00 01/10/25 04:00 01/10/25 04:00 Temperature Pulse Rate 96 98 98 Respiratory Rate 24 H 24 H Blood Pressure Pulse Oximetry Oxygen Delivery Oxygen Flow Rate Fraction of Inspired Oxygen 01/10/25 04:34 01/10/25 05:00 01/10/25 05:05 Temperature 99.3 F Pulse Rate 100 97 95 Respiratory Rate 24 H Blood Pressure 120/69 116/65 Pulse Oximetry 99 98 Oxygen Delivery Mechanical Ventilation Oxygen Flow Rate Fraction of Inspired Oxygen 60 01/10/25 05:30 01/10/25 06:00 01/10/25 06:00 Temperature 99.3 F Pulse Rate 99 100 100 Respiratory Rate 24 H Blood Pressure 110/60 109/79 Pulse Oximetry 98 Oxygen Delivery Oxygen Flow Rate Fraction of Inspired Oxygen 01/10/25 06:00 01/10/25 06:00 01/10/25 06:00 Temperature Pulse Rate 100 100 100 Respiratory Rate 24 H 24 H Blood Pressure 109/79 Pulse Oximetry Oxygen Delivery Oxygen Flow Rate Fraction of Inspired Oxygen 01/10/25 07:00 01/10/25 07:57 01/10/25 08:00 Temperature 99.1 F 99 F Pulse Rate 93 94 102 H Respiratory Rate 24 H 24 H 24 H Blood Pressure 148/84 H 151/84 H Pulse Oximetry 97 97 Oxygen Delivery Oxygen Flow Rate Fraction of Inspired Oxygen 01/10/25 08:00 01/10/25 08:00 01/10/25 08:00 Temperature Pulse Rate 107 H 100 100 Respiratory Rate 24 H 24 H Blood Pressure 147/90 H Pulse Oximetry Oxygen Delivery Oxygen Flow Rate Fraction of Inspired Oxygen 01/10/25 08:00 01/10/25 08:00 01/10/25 08:00 Temperature Pulse Rate 102 H 102 H Respiratory Rate 24 H Blood Pressure Pulse Oximetry 99 Oxygen Delivery Mechanical Ventilation Oxygen Flow Rate Fraction of Inspired Oxygen 60 60 01/10/25 08:27 01/10/25 08:27 01/10/25 09:00 Temperature 99 F Pulse Rate 105 H 103 H 100 Respiratory Rate 24 H 24 H Blood Pressure 111/61 Pulse Oximetry 97 97 Oxygen Delivery Mechanical Ventilation Oxygen Flow Rate Fraction of Inspired Oxygen 60 01/10/25 10:00 01/10/25 10:00 01/10/25 10:00 Temperature Pulse Rate 98 102 H 102 H Respiratory Rate 24 H 24 H Blood Pressure Pulse Oximetry Oxygen Delivery Oxygen Flow Rate Fraction of Inspired Oxygen 01/10/25 10:00 01/10/25 10:46 01/10/25 10:47 Temperature 98.9 F Pulse Rate 102 H 121 H 121 H Respiratory Rate 24 H 24 H 24 H Blood Pressure 152/77 H Pulse Oximetry 99 Oxygen Delivery Oxygen Flow Rate Fraction of Inspired Oxygen 01/10/25 11:00 01/10/25 11:00 Temperature 98.8 F Pulse Rate 112 H 99 Respiratory Rate 24 H Blood Pressure 120/66 Pulse Oximetry 98 99 Oxygen Delivery Mechanical Ventilation Oxygen Flow Rate Fraction of Inspired Oxygen 60 Intake/Output Intake/Output: Intake & Output 01/07/25 01/08/25 01/09/25 01/10/25 23:59 23:59 23:59 23:59 Intake Total 1242.8 1478.1 Output Total 525 450 Balance 717.8 1028.1 Meds/Results Medications: Active Medications Generic Name Dose Route Start Last Admin Trade Name Freq PRN Reason Stop Dose Admin Acetaminophen 650 mg 01/09/25 14:52 Acetaminophen 650 Mg Suppository RECTAL Q6H PRN Mild Pain (1-3) or Fever Acetylcysteine 200 mg 01/09/25 20:00 01/10/25 07:58 Acetylcysteine 20% Inhal Soln 800 Mg/4 Ml Vial INHALATION 200 mg Q6HRT JENNY Administration Albuterol/Ipratropium 3 ml 01/09/25 20:00 01/10/25 07:57 Ipratropium 0.5 Mg/Albuterol Sulfate 2.5 Mg Ampul.Neb 3 Ml INHALATION 3 ml Q6HRT JENNY Administration Dextrose 12.5 gm 01/10/25 00:27 Dextrose 50% 25 Gm/50 Ml Syringe IV PUSH PRN PRN Hypoglycemia Protocol Dornase Prateek 2.5 mg 01/09/25 20:00 01/09/25 18:55 Dornase Prateek Inh Soln 1 Mg/Ml 2.5 Ml Amp INHALATION 2.5 mg Q12HRT JENNY Administration Glucagon 1 mg 01/10/25 00:27 Glucagon For Inj 1 Mg Vial IM PRN PRN Hypoglycemia Protocol Glucose 15 gm 01/10/25 00:27 Glucose Oral Gel 15 Gm Of Glucse In 37.5 Gm Tube PO PRN PRN Hypoglycemia Protocol Heparin Sodium (Porcine) 7,000 units 01/09/25 18:05 Heparin Sodium 5,000 Units/Ml Vial IV PUSH PRN PRN aPTT less than 55 seconds Heparin Sodium (Porcine) 3,500 units 01/09/25 18:05 01/10/25 08:58 Heparin Sodium 5,000 Units/Ml Vial IV PUSH 3,500 units PRN PRN Administration aPTT 55 - 70 seconds Fentanyl Citrate 2,500 mcg in 250 mls @ 5 mls/hr 01/09/25 13:10 01/10/25 10:46 Fentanyl 2,500 Mcg/Ns 250 Ml IV CONT 01/11/25 15:09 50 mcg/hr .Q50H STA 5 mls/hr Titration Protocol 50 MCG/HR Midazolam HCl 100 mg in 100 mls @ 2 mls/hr 01/09/25 13:10 01/10/25 10:47 Versed 100 Mg/Ns 100 Ml IV CONT 01/11/25 15:09 2 mg/hr .Q50H STA 2 mls/hr Titration Protocol 2 MG/HR Doxycycline Hyclate 100 mg/ 100 mls @ 100 mls/hr 01/09/25 19:00 01/10/25 06:11 Sodium Chloride IVPB 100 mls/hr Q12H JENNY Administration Cefepime HCl 1 gm/ Sodium 50 mls @ 100 mls/hr 01/10/25 06:00 01/10/25 05:44 Chloride IVPB Infused Q12H JENNY Infusion Metronidazole 500 mg in 100 mls @ 100 mls/hr 01/10/25 03:00 01/10/25 10:50 Flagyl 500 Mg/Iso Soln 100 Ml IVPB 100 mls/hr Q8H JENNY Administration Heparin Sodium/Dextrose 25,000 units in 250 mls @ 17 mls/hr 01/09/25 18:05 01/10/25 11:12 Heparin Sodium/D5w 100 Units/Ml IV CONT 1,700 units/hr .[id number] JENNY 17 mls/hr Administration Protocol 1,700 UNITS/HR Dextrose 1,000 mls @ 100 mls/hr 01/10/25 00:27 Dextrose 5% 1,000 Ml IVPB PRN PRN Hypoglycemia Protocol Insulin Aspart 3 - 6 units 01/10/25 06:00 01/10/25 11:26 Insulin Aspart (*Bkc) 100 Units/Ml SUB-Q Not Given Q6HR JENNY Protocol Methylprednisolone Sodium Succinate 40 mg 01/09/25 18:15 01/10/25 05:14 Methylprednisolone Sod Succ 40 Mg Vial IV PUSH 40 mg Q6HR JENNY Administration Pantoprazole Sodium 40 mg 01/09/25 21:00 01/10/25 08:17 Pantoprazole Sodium Iv 40 Mg Vial IV PUSH 40 mg Q12HR JENNY Administration Perflutren Lipid Microsphere 0 ml 01/09/25 18:26 Perflutren Lipid Microspheres 1.5 Ml Vial Diluted To 10 Ml Total Volume IV PUSH 01/12/25 18:26 ONCE PRN adequate visualization Protocol Fluticasone/Salmeterol 2 puff 01/09/25 20:00 01/10/25 08:00 Fluticasone/Salmeterol 115-21 Mcg Inhaler 1 Puff INHALATION 2 puff Q12HRT JENNY Administration Sodium Chloride 10 ml 01/09/25 22:00 01/10/25 05:14 Central Line Flush IV PUSH 10 ml Q8HR JENNY Administration Sodium Chloride 20 ml 01/09/25 17:08 Central Line Flush IV PUSH PRN PRN after blood draws Sodium Chloride 10 ml 01/09/25 22:00 01/10/25 05:14 Central Line Flush IV PUSH 10 ml Q8HR JENNY Administration Sodium Chloride 20 ml 01/09/25 17:34 Central Line Flush IV PUSH PRN PRN after blood draws Vancomycin HCl 1 each 01/09/25 13:55 Vancomycin For Acute Kidney Injury IVPB PRN PRN Vancomycin Protocol Radiology Results: ITS Impressions Abdomen X-Ray 01/09/25 13:38 IMPRESSION: 1: NG tube tip in the stomach. Chest/Abdomen/Pelvis CTA 01/09/25 13:59 IMPRESSION: 1. Extensive airspace disease of the right upper and lower lobe, consistent with pneumonia. 2: Bilateral pleural effusions, right greater than left. 3: Hypodense right renal masses. Cannot exclude renal cell carcinoma. Consider correlation with MRI abdomen with contrast. 4: Small pericardial effusion. Head CT 01/09/25 14:00 IMPRESSION: 1. No acute intracranial hemorrhage. No mass effect. 2. Probable chronic ischemic white matter change. Renal Ultrasound 01/09/25 19:35 IMPRESSION: No hydronephrosis or renal calculi. Indeterminate focus within the interpolar region of the right kidney, for which contrast enhanced CT or MRI (with renal mass protocol) is suggested for further evaluation. Abdomen Ultrasound 01/09/25 19:44 IMPRESSION: Limited evaluation of the pancreas secondary to overlying bowel gas Hepatomegaly with additional findings of portal hypertension, as detailed above. Chest X-Ray 01/10/25 06:27 Impression: 1: Stable asymmetric right-sided airspace disease, most likely pneumonia versus asymmetric edema. 2: Small right pleural effusion. Labs Labs: Laboratory Results - last 24 hr 01/09/25 01/09/25 01/09/25 13:17 13:23 13:32 WBC 15.7 H RBC 5.29 Hgb 15.8 D Hct 53.1 H MCV 100.4 H MCH 29.9 MCHC 29.8 L RDW 17.7 H Plt Count 323 D MPV 11.2 H Immature Gran % (Auto) 0.4 Neut % (Auto) 84.7 H Lymph % (Auto) 5.6 L Fisher % (Auto) 9.2 H Eos % (Auto) 0.0 Baso % (Auto) 0.1 L Lymph # (Auto) 0.88 L Fisher # (Auto) 1.5 H Eos # (Auto) 0.0 Baso # (Auto) 0.0 Abs Immat Gran (auto) 0.06 H Absolute Neuts (auto) 13.3 H Absolute Nucleated RBC 0.140 H Total Counted Neutrophils % (Manual) Band Neutrophils % Not Reportable Lymphocytes % (Manual) Monocytes % (Manual) Nucleated RBC % 0.9 H Abs Neuts (Manual) Abs Lymphs (Manual) Abs Monocytes (Manual) Nucleated RBCs Platelet Estimate Adequate Polychromasia 1+ Hypochromasia Anisocytosis Schistocytes None seen PT 16.1 H INR 1.3 APTT 28.0 Puncture Site Right radial ABG pH 7.212 L* ABG pCO2 58.2 H ABG pO2 54.1 L ABG PO2/FiO2 Ratio 0.54 ABG HCO3 22.9 ABG O2 Saturation 80.8 L* ABG O2 Content 15.4 L ABG Base Excess -5.8 A-a Gradient 600.7 Oxyhemoglobin 75.4 L* Carboxyhemoglobin Methemoglobin Reduced Hemoglobin Total Hemoglobin 14.5 O2 Delivery Device Ventilator O2 Liters/Min Not Reportable Minute Volume Not Reportable Vent Rate 16 Vent Mode Cmv FiO2 100 Tidal Volume 500 PEEP 10 Peak Inspir Pressure Not Reportable Pressure Support Not Reportable Sodium 140 Potassium 6.1 H* Chloride 101 Carbon Dioxide 27 Anion Gap 12 BUN 79 H D Creatinine 3.81 H Estim Creat Clear Calc 22 Estimated GFR 16 L Glucose 124 H POC Capillary Glucose Hemoglobin A1c Lactic Acid 2.5 H Calcium 8.1 L Phosphorus 7.7 H Magnesium 2.9 H Total Bilirubin 1.2 AST 660 H ALT 692 H Alkaline Phosphatase 102 Ammonia Total Creatine Kinase Troponin I 0.215 H* C-Reactive Protein NT-Pro-B Natriuret Pep > 16331 H Total Protein 7.2 Albumin 4.1 Lipase 57 Procalcitonin TSH (Reflex) 2.280 Urine Color Dark yellow Urine Appearance Clear Urine pH 5.0 Ur Specific [place] 1.018 Urine Protein 1+ H Urine Glucose (UA) Negative Urine Ketones Trace H Ur Blood (Man) Negative Urine Nitrate Negative Urine Bilirubin 1+ H Urine Urobilinogen 1.0 Add Ur Microanalysis Reviewed Leukocyte Esterase Rfl Negative Urine RBC 0-2 Urine WBC 0-5 Ur Squamous Epith Cells None seen Urine Bacteria None seen Urine Casts 11-20 Hyaline Casts Present Urine Eosinophils Ur Random Sodium Ur Random Potassium Urine Creatinine Nasal MRSA (PCR) Urine Opiates Screen Negative Urine Methadone Screen Negative Ur Barbiturates Screen Negative Ur Phencyclidine Scrn Negative Ur Amphetamine Screen Negative U Benzodiazepines Scrn Negative Urine Cocaine Screen Positive A U Cannabinoids Screen Positive A Ethyl Alcohol < 10 Hepatitis A IgM Ab Hep Bs Antigen Hep B Core IgM Ab Hepatitis C Ab Screen Influenza A (RT-PCR) Influenza B (RT-PCR) RSV (RT-PCR) SARS-CoV-2 RNA (RT-PCR) 01/09/25 01/09/25 01/09/25 14:08 14:10 16:17 WBC RBC Hgb Hct MCV MCH MCHC RDW Plt Count MPV Immature Gran % (Auto) Neut % (Auto) Lymph % (Auto) Fisher % (Auto) Eos % (Auto) Baso % (Auto) Lymph # (Auto) Fisher # (Auto) Eos # (Auto) Baso # (Auto) Abs Immat Gran (auto) Absolute Neuts (auto) Absolute Nucleated RBC Total Counted Neutrophils % (Manual) Band Neutrophils % Lymphocytes % (Manual) Monocytes % (Manual) Nucleated RBC % Abs Neuts (Manual) Abs Lymphs (Manual) Abs Monocytes (Manual) Nucleated RBCs Platelet Estimate Polychromasia Hypochromasia Anisocytosis Schistocytes PT INR APTT Puncture Site Artline ABG pH 7.317 L ABG pCO2 45.1 H ABG pO2 52.2 L ABG PO2/FiO2 Ratio 0.52 ABG HCO3 22.6 ABG O2 Saturation 84.0 L* ABG O2 Content 16.6 ABG Base Excess -3.7 A-a Gradient 615.7 Oxyhemoglobin 80.4 L* Carboxyhemoglobin 3.2 H Methemoglobin 0.2 Reduced Hemoglobin 16.2 H Total Hemoglobin 14.7 O2 Delivery Device Ventilator O2 Liters/Min Not Reportable Minute Volume Not Reportable Vent Rate 16 Vent Mode Cmv FiO2 100 Tidal Volume 500 PEEP 10 Peak Inspir Pressure Not Reportable Pressure Support Not Reportable Sodium Potassium Chloride Carbon Dioxide Anion Gap BUN Creatinine Estim Creat Clear Calc Estimated GFR Glucose POC Capillary Glucose Hemoglobin A1c Lactic Acid Calcium Phosphorus Magnesium Total Bilirubin AST ALT Alkaline Phosphatase Ammonia Total Creatine Kinase Troponin I C-Reactive Protein NT-Pro-B Natriuret Pep Total Protein Albumin Lipase Procalcitonin TSH (Reflex) Urine Color Urine Appearance Urine pH Ur Specific [place] Urine Protein Urine Glucose (UA) Urine Ketones Ur Blood (Man) Urine Nitrate Urine Bilirubin Urine Urobilinogen Add Ur Microanalysis Leukocyte Esterase Rfl Urine RBC Urine WBC Ur Squamous Epith Cells Urine Bacteria Urine Casts Hyaline Casts Urine Eosinophils Ur Random Sodium Ur Random Potassium Urine Creatinine Nasal MRSA (PCR) Detected A* Urine Opiates Screen Urine Methadone Screen Ur Barbiturates Screen Ur Phencyclidine Scrn Ur Amphetamine Screen U Benzodiazepines Scrn Urine Cocaine Screen U Cannabinoids Screen Ethyl Alcohol Hepatitis A IgM Ab Hep Bs Antigen Hep B Core IgM Ab Hepatitis C Ab Screen Influenza A (RT-PCR) Negative Influenza B (RT-PCR) Negative RSV (RT-PCR) Negative SARS-CoV-2 RNA (RT-PCR) Negative 01/09/25 01/09/25 01/09/25 17:30 18:16 18:16 WBC 13.4 H RBC 4.89 Hgb 14.3 Hct 47.6 MCV 97.3 MCH 29.2 MCHC 30.0 L RDW 17.1 H Plt Count 248 MPV 10.7 H Immature Gran % (Auto) Not Reportable Neut % (Auto) Not Reportable Lymph % (Auto) Not Reportable Fisher % (Auto) Not Reportable Eos % (Auto) Not Reportable Baso % (Auto) Not Reportable Lymph # (Auto) Not Reportable Fisher # (Auto) Not Reportable Eos # (Auto) Not Reportable Baso # (Auto) Not Reportable Abs Immat Gran (auto) Not Reportable Absolute Neuts (auto) Not Reportable Absolute Nucleated RBC Not Reportable Total Counted 100 Neutrophils % (Manual) 89 H Band Neutrophils % 5 Lymphocytes % (Manual) 2.0 L Monocytes % (Manual) 4 Nucleated RBC % Not Reportable Abs Neuts (Manual) 12.59 H Abs Lymphs (Manual) 0.26 L Abs Monocytes (Manual) 0.53 Nucleated RBCs 1 Platelet Estimate Adequate Polychromasia 1+ Hypochromasia 1+ Anisocytosis 2+ Schistocytes None seen PT 16.1 H INR 1.3 APTT 26.3 Puncture Site ABG pH ABG pCO2 ABG pO2 ABG PO2/FiO2 Ratio ABG HCO3 ABG O2 Saturation ABG O2 Content ABG Base Excess A-a Gradient Oxyhemoglobin Carboxyhemoglobin Methemoglobin Reduced Hemoglobin Total Hemoglobin O2 Delivery Device O2 Liters/Min Minute Volume Vent Rate Vent Mode FiO2 Tidal Volume PEEP Peak Inspir Pressure Pressure Support Sodium 143 Potassium 4.6 Chloride 104 Carbon Dioxide 28 Anion Gap 11 BUN 81 H Creatinine 3.15 H Estim Creat Clear Calc 26 Estimated GFR 20 L Glucose 136 H POC Capillary Glucose 130 H Hemoglobin A1c 5.4 Lactic Acid Cancelled 1.5 Calcium 7.6 L Phosphorus 6.2 H Magnesium 2.5 H Total Bilirubin 0.7 AST 519 H ALT 605 H Alkaline Phosphatase 86 Ammonia Total Creatine Kinase 99 Troponin I 0.200 H* C-Reactive Protein 7.6 H NT-Pro-B Natriuret Pep Total Protein 5.7 L Albumin 3.2 L Lipase 39 Procalcitonin TSH (Reflex) Urine Color Urine Appearance Urine pH Ur Specific [place] Urine Protein Urine Glucose (UA) Urine Ketones Ur Blood (Man) Urine Nitrate Urine Bilirubin Urine Urobilinogen Add Ur Microanalysis Leukocyte Esterase Rfl Urine RBC Urine WBC Ur Squamous Epith Cells Urine Bacteria Urine Casts Hyaline Casts Urine Eosinophils Ur Random Sodium Ur Random Potassium Urine Creatinine Nasal MRSA (PCR) Urine Opiates Screen Urine Methadone Screen Ur Barbiturates Screen Ur Phencyclidine Scrn Ur Amphetamine Screen U Benzodiazepines Scrn Urine Cocaine Screen U Cannabinoids Screen Ethyl Alcohol Hepatitis A IgM Ab Hep Bs Antigen Hep B Core IgM Ab Hepatitis C Ab Screen Influenza A (RT-PCR) Influenza B (RT-PCR) RSV (RT-PCR) SARS-CoV-2 RNA (RT-PCR) 01/09/25 01/09/25 01/09/25 18:39 19:06 21:16 WBC RBC Hgb Hct MCV MCH MCHC RDW Plt Count MPV Immature Gran % (Auto) Neut % (Auto) Lymph % (Auto) Fisher % (Auto) Eos % (Auto) Baso % (Auto) Lymph # (Auto) Fisher # (Auto) Eos # (Auto) Baso # (Auto) Abs Immat Gran (auto) Absolute Neuts (auto) Absolute Nucleated RBC Total Counted Neutrophils % (Manual) Band Neutrophils % Lymphocytes % (Manual) Monocytes % (Manual) Nucleated RBC % Abs Neuts (Manual) Abs Lymphs (Manual) Abs Monocytes (Manual) Nucleated RBCs Platelet Estimate Polychromasia Hypochromasia Anisocytosis Schistocytes PT INR APTT Puncture Site Artline ABG pH 7.220 L* ABG pCO2 66.0 H* ABG pO2 101.2 H ABG PO2/FiO2 Ratio 1.01 ABG HCO3 26.4 H ABG O2 Saturation 96.3 ABG O2 Content 20.4 ABG Base Excess -2.9 A-a Gradient 634.5 Oxyhemoglobin 94.2 Carboxyhemoglobin 2.0 Methemoglobin 0.2 Reduced Hemoglobin 3.6 Total Hemoglobin 15.3 O2 Delivery Device Ventilator O2 Liters/Min Not Reportable Minute Volume Not Reportable Vent Rate 22 Vent Mode Cmv FiO2 100 Tidal Volume 500 PEEP 14 Peak Inspir Pressure Not Reportable Pressure Support Not Reportable Sodium Potassium Chloride Carbon Dioxide Anion Gap BUN Creatinine Estim Creat Clear Calc Estimated GFR Glucose POC Capillary Glucose Hemoglobin A1c Lactic Acid Calcium Phosphorus Magnesium Total Bilirubin AST ALT Alkaline Phosphatase Ammonia Total Creatine Kinase Troponin I Cancelled C-Reactive Protein NT-Pro-B Natriuret Pep Total Protein Albumin Lipase Procalcitonin TSH (Reflex) Urine Color Urine Appearance Urine pH Ur Specific [place] Urine Protein Urine Glucose (UA) Urine Ketones Ur Blood (Man) Urine Nitrate Urine Bilirubin Urine Urobilinogen Add Ur Microanalysis Leukocyte Esterase Rfl Urine RBC Urine WBC Ur Squamous Epith Cells Urine Bacteria Urine Casts Hyaline Casts Urine Eosinophils None seen Ur Random Sodium Ur Random Potassium Urine Creatinine Nasal MRSA (PCR) Urine Opiates Screen Urine Methadone Screen Ur Barbiturates Screen Ur Phencyclidine Scrn Ur Amphetamine Screen U Benzodiazepines Scrn Urine Cocaine Screen U Cannabinoids Screen Ethyl Alcohol Hepatitis A IgM Ab Hep Bs Antigen Hep B Core IgM Ab Hepatitis C Ab Screen Influenza A (RT-PCR) Influenza B (RT-PCR) RSV (RT-PCR) SARS-CoV-2 RNA (RT-PCR) 01/09/25 01/09/25 01/10/25 21:59 23:19 01:33 WBC RBC Hgb Hct MCV MCH MCHC RDW Plt Count MPV Immature Gran % (Auto) Neut % (Auto) Lymph % (Auto) Fisher % (Auto) Eos % (Auto) Baso % (Auto) Lymph # (Auto) Fisher # (Auto) Eos # (Auto) Baso # (Auto) Abs Immat Gran (auto) Absolute Neuts (auto) Absolute Nucleated RBC Total Counted Neutrophils % (Manual) Band Neutrophils % Lymphocytes % (Manual) Monocytes % (Manual) Nucleated RBC % Abs Neuts (Manual) Abs Lymphs (Manual) Abs Monocytes (Manual) Nucleated RBCs Platelet Estimate Polychromasia Hypochromasia Anisocytosis Schistocytes PT 16.2 H INR 1.3 APTT 97.6 H Puncture Site ABG pH ABG pCO2 ABG pO2 ABG PO2/FiO2 Ratio ABG HCO3 ABG O2 Saturation ABG O2 Content ABG Base Excess A-a Gradient Oxyhemoglobin Carboxyhemoglobin Methemoglobin Reduced Hemoglobin Total Hemoglobin O2 Delivery Device O2 Liters/Min Minute Volume Vent Rate Vent Mode FiO2 Tidal Volume PEEP Peak Inspir Pressure Pressure Support Sodium Potassium Chloride Carbon Dioxide Anion Gap BUN Creatinine Estim Creat Clear Calc Estimated GFR Glucose POC Capillary Glucose 168 H Hemoglobin A1c Lactic Acid Calcium Phosphorus Magnesium Total Bilirubin AST ALT Alkaline Phosphatase Ammonia Total Creatine Kinase Troponin I 0.212 H* C-Reactive Protein NT-Pro-B Natriuret Pep Total Protein Albumin Lipase Procalcitonin 1.7 TSH (Reflex) Urine Color Urine Appearance Urine pH Ur Specific [place] Urine Protein Urine Glucose (UA) Urine Ketones Ur Blood (Man) Urine Nitrate Urine Bilirubin Urine Urobilinogen Add Ur Microanalysis Leukocyte Esterase Rfl Urine RBC Urine WBC Ur Squamous Epith Cells Urine Bacteria Urine Casts Hyaline Casts Urine Eosinophils Ur Random Sodium Ur Random Potassium Urine Creatinine Nasal MRSA (PCR) Urine Opiates Screen Urine Methadone Screen Ur Barbiturates Screen Ur Phencyclidine Scrn Ur Amphetamine Screen U Benzodiazepines Scrn Urine Cocaine Screen U Cannabinoids Screen Ethyl Alcohol Hepatitis A IgM Ab Negative Hep Bs Antigen Negative Hep B Core IgM Ab Negative Hepatitis C Ab Screen Negative Influenza A (RT-PCR) Influenza B (RT-PCR) RSV (RT-PCR) SARS-CoV-2 RNA (RT-PCR) 01/10/25 01/10/25 01/10/25 04:51 08:01 08:56 WBC 13.9 H RBC 4.69 Hgb 13.9 L Hct 45.4 MCV 96.8 MCH 29.6 MCHC 30.6 L RDW 17.2 H Plt Count 195 MPV 10.9 H Immature Gran % (Auto) Not Reportable Neut % (Auto) Not Reportable Lymph % (Auto) Not Reportable Fisher % (Auto) Not Reportable Eos % (Auto) Not Reportable Baso % (Auto) Not Reportable Lymph # (Auto) Not Reportable Fisher # (Auto) Not Reportable Eos # (Auto) Not Reportable Baso # (Auto) Not Reportable Abs Immat Gran (auto) Not Reportable Absolute Neuts (auto) Not Reportable Absolute Nucleated RBC Not Reportable Total Counted 100 Neutrophils % (Manual) 92 H Band Neutrophils % 5 Lymphocytes % (Manual) 1 L Monocytes % (Manual) 2 L Nucleated RBC % Not Reportable Abs Neuts (Manual) 13.48 H Abs Lymphs (Manual) 0.13 L Abs Monocytes (Manual) 0.27 Nucleated RBCs 1 Platelet Estimate Adequate Polychromasia 1+ Hypochromasia Anisocytosis 1+ Schistocytes None seen PT INR APTT 61.6 H Puncture Site Artline ABG pH 7.318 L ABG pCO2 48.7 H ABG pO2 109.6 H ABG PO2/FiO2 Ratio 1.57 ABG HCO3 24.4 ABG O2 Saturation 97.6 ABG O2 Content 20.4 ABG Base Excess -2.2 A-a Gradient 337.2 Oxyhemoglobin 96.9 Carboxyhemoglobin 0.7 Methemoglobin 0.2 Reduced Hemoglobin 2.2 Total Hemoglobin 14.9 O2 Delivery Device Ventilator O2 Liters/Min Not Reportable Minute Volume Not Reportable Vent Rate 24 Vent Mode Cmv FiO2 70 Tidal Volume 500 PEEP 14 Peak Inspir Pressure Not Reportable Pressure Support Not Reportable Sodium 140 Potassium 4.7 Chloride 107 Carbon Dioxide 23 Anion Gap 10 BUN 85 H Creatinine 3.18 H Estim Creat Clear Calc 26 Estimated GFR 20 L Glucose 182 H POC Capillary Glucose Hemoglobin A1c Lactic Acid 2.0 Calcium 7.9 L Phosphorus 5.9 H Magnesium 2.5 H Total Bilirubin 0.5 AST 278 H ALT 539 H Alkaline Phosphatase 78 Ammonia < 9 L Total Creatine Kinase Troponin I C-Reactive Protein 16.2 H NT-Pro-B Natriuret Pep Total Protein 5.7 L Albumin 3.0 L Lipase Procalcitonin TSH (Reflex) Urine Color Urine Appearance Urine pH Ur Specific [place] Urine Protein Urine Glucose (UA) Urine Ketones Ur Blood (Man) Urine Nitrate Urine Bilirubin Urine Urobilinogen Add Ur Microanalysis Leukocyte Esterase Rfl Urine RBC Urine WBC Ur Squamous Epith Cells Urine Bacteria Urine Casts Hyaline Casts Urine Eosinophils Ur Random Sodium < 5 Ur Random Potassium 53.4 Urine Creatinine 139.0 Nasal MRSA (PCR) Urine Opiates Screen Urine Methadone Screen Ur Barbiturates Screen Ur Phencyclidine Scrn Ur Amphetamine Screen U Benzodiazepines Scrn Urine Cocaine Screen U Cannabinoids Screen Ethyl Alcohol Hepatitis A IgM Ab Hep Bs Antigen Hep B Core IgM Ab Hepatitis C Ab Screen Influenza A (RT-PCR) Influenza B (RT-PCR) RSV (RT-PCR) SARS-CoV-2 RNA (RT-PCR) 01/10/25 11:22 WBC RBC Hgb Hct MCV MCH MCHC RDW Plt Count MPV Immature Gran % (Auto) Neut % (Auto) Lymph % (Auto) Fisher % (Auto) Eos % (Auto) Baso % (Auto) Lymph # (Auto) Fisher # (Auto) Eos # (Auto) Baso # (Auto) Abs Immat Gran (auto) Absolute Neuts (auto) Absolute Nucleated RBC Total Counted Neutrophils % (Manual) Band Neutrophils % Lymphocytes % (Manual) Monocytes % (Manual) Nucleated RBC % Abs Neuts (Manual) Abs Lymphs (Manual) Abs Monocytes (Manual) Nucleated RBCs Platelet Estimate Polychromasia Hypochromasia Anisocytosis Schistocytes PT INR APTT Puncture Site ABG pH ABG pCO2 ABG pO2 ABG PO2/FiO2 Ratio ABG HCO3 ABG O2 Saturation ABG O2 Content ABG Base Excess A-a Gradient Oxyhemoglobin Carboxyhemoglobin Methemoglobin Reduced Hemoglobin Total Hemoglobin O2 Delivery Device O2 Liters/Min Minute Volume Vent Rate Vent Mode FiO2 Tidal Volume PEEP Peak Inspir Pressure Pressure Support Sodium Potassium Chloride Carbon Dioxide Anion Gap BUN Creatinine Estim Creat Clear Calc Estimated GFR Glucose POC Capillary Glucose 159 H Hemoglobin A1c Lactic Acid Calcium Phosphorus Magnesium Total Bilirubin AST ALT Alkaline Phosphatase Ammonia Total Creatine Kinase Troponin I C-Reactive Protein NT-Pro-B Natriuret Pep Total Protein Albumin Lipase Procalcitonin TSH (Reflex) Urine Color Urine Appearance Urine pH Ur Specific [place] Urine Protein Urine Glucose (UA) Urine Ketones Ur Blood (Man) Urine Nitrate Urine Bilirubin Urine Urobilinogen Add Ur Microanalysis Leukocyte Esterase Rfl Urine RBC Urine WBC Ur Squamous Epith Cells Urine Bacteria Urine Casts Hyaline Casts Urine Eosinophils Ur Random Sodium Ur Random Potassium Urine Creatinine Nasal MRSA (PCR) Urine Opiates Screen Urine Methadone Screen Ur Barbiturates Screen Ur Phencyclidine Scrn Ur Amphetamine Screen U Benzodiazepines Scrn Urine Cocaine Screen U Cannabinoids Screen Ethyl Alcohol Hepatitis A IgM Ab Hep Bs Antigen Hep B Core IgM Ab Hepatitis C Ab Screen Influenza A (RT-PCR) Influenza B (RT-PCR) RSV (RT-PCR) SARS-CoV-2 RNA (RT-PCR) Quality VTE Prophylaxis VTE prophylaxis: pharmacologic ordered
--- NOTE | 2025-01-10 12:26 | P.CONNP_ITS ---
Assessment and Plan Assessment and plan (1) Acute kidney injury: Code(s): N17.9 - Acute kidney failure, unspecified Status: Acute Assessment and Plan: * as noted on admission * normal creatinine on hospital discharge in June 2024 * suspect ATN with multifactorial etiology: * infection/sepsis * hemodynamic instability/shock * prerenal factors * ARB + diuretic use prior to admission * polysubstance abuse * other (?) * contrast exposure (CTA C/A/P on 01/09) may hamper/delay recovery * evaluation to date noted: * urine electrolytes pre-renal * CT of abdomen with hypodense right renal masses * renal u/s with nn hydronephrosis or renal calculi; indeterminate focus within the interpolar region of the right kidney * urine eosinophils negative * UA without evidence of infection * CPK normal * trial of IVFs * optimize hemodynamics * remains at risk for DRAW END HAND/dialysis * follow trend of repeat labs and UOP (2) Septic shock: Code(s): A41.9 - Sepsis, unspecified organism; R65.21 - Severe sepsis with septic shock Status: Acute Assessment and Plan: * as noted on presetation with hypotension, acute respiratory failure, lactic acidosis, tachycardia, and DERECK * presumably secondary to pneumonia * s/p 2 L IV fluid bolus and on maintenance IV fluid * lactic acid has normalized * weaned off Levophed * follow culture data * on antibiotics * follow trend of hemodynamics (3) Acute hypoxic respiratory failure: Code(s): J96.01 - Acute respiratory failure with hypoxia Status: Acute Assessment and Plan: * as noted on presentation to the ER * intubated in ER on admission (due to hypoxia and agonal breathing) * complicated by mucus plugging of right main stem bronchus requiring bronchoscopy with suctioning of secretions * CT imaging noted * no evidence of pulmonary embolism, extensive right upper lobe and lower lobe airspace disease consistent with pneumonia; ilateral pleural effusion, right greater than left * Echo noted: * normal left ventricular size with overall good systolic function, paradoxical septal motion consistent with bundle branch block * EF 55-60% * right ventricular enlargement with systolic dysfunction * mild tricuspid regurgitation, estimated RV systolic pressure 51 mmHg * sclerotic aortic valve which exhibits preserved leaflet excursion * on ventilator support * chest physiotherapy * on nebulizer therapy, mucomyst, and pulmozyme * further complicated by known history of COPD (4) Pneumonia: Qualifiers: Laterality: right Lung location: unspecified part of lung Pneumonia type: due to unspecified organism Qualified Code(s): J18.9 - Pneumonia, unspecified organism Code(s): J18.9 - Pneumonia, unspecified organism Status: Acute Assessment and Plan: * as suggested by imaging to date * COVID, RSV and influenza testing negative * continue antibiotics * follow respiratory status (5) Acute exacerbation of chronic obstructive pulmonary disease: Code(s): J44.1 - Chronic obstructive pulmonary disease with (acute) exacerbation Status: Acute Assessment and Plan: * known history of is COPD with emphysema seen on CT scan of the chest * likely precipitated by pneumonia * on bronchodilator therapy (6) Atrial fibrillation: Qualifiers: Atrial fibrillation type: unspecified Qualified Code(s): I48.91 - Unspecified atrial fibrillation Code(s): I48.91 - Unspecified atrial fibrillation Status: Acute Assessment and Plan: * rate control strategy * on heparin gtt for anticoagulation (7) Transaminitis: Code(s): R74.01 - Elevation of levels of liver transaminase levels Status: Acute Assessment and Plan: * slow improvement * significantly elevated LFTs on admission * due to hypotension/shock and hypotension on presentation (?) * RUQ ultrasound shows hepatomegaly with additional findings of portal hypertension * hepatitis panel was negative * follow trend (8) Polysubstance use disorder: Code(s): F19.90 - Other psychoactive substance use, unspecified, uncomplicated Status: Acute Assessment and Plan: * urine tox screen was positive for cannabis and cocaine I will continue to follow the patient with you while he remains hospitalized and make further recommendations as deemed necessary. Thank you for allowing me to participate in the care of this patient. L History of Present Illness Reason for Consult Consult date: 01/10/25 Reason for consult: acute renal failure Chief Complaint Chief complaint: Hypoxic Resp Failure History of Present Illness Narrative: All the information I have obtained is from review of the electronic medical record as well as discussion with the physician/nurses involved in the patient's care as the patient is unable to provide me with any history as he is currently intubated and on mechanical ventilation. The patient is a 64-year-old male with extensive past medical history as outlined who presented to [facility] via EMS after being unresponsive at home. According to the patient's , the patient has been laying in bed for last 2 days with altered mental status and agonal breathing. Initially she thought he would eventually improve on his own but as she was unable to wake him a with significant stimulation, she became concerned and called 911. Upon EMS arrival the patient was altered and minimally responsive. He was noted to be hypoxic and he required bag mask ventilation to improve his respiratory status but his oxygenation remained low in the 80 percentile range. He was subsequently transported to the emergency room for further assessment. Upon arrival to the emergency room, he remained hypoxic and altered a clear evidence of inability to protect his airway. He was emergently intubated and placed on mechanical ventilation. He was also noted be quite hypotensive as well and received IV fluid boluses. Despite intubation and mechanical ventilation he remained hypoxic. Subsequent imaging included a CT scan of the brain which was negative for any acute pathology and a CT PE protocol along with abdomen which showed no evidence of pulmonary embolism with extensive right upper lobe and lower lobe airspace disease consistent with pneumonia bilateral pleural effusions right greater than left, and hyperdense right renal masses with the concern for possible malignancy. Routine labs showed WBC count of 16.7, hemoglobin 15.8, platelet counts 323, neutrophil predominance, PT 16.1, INR 1.3, PTT 28. Sodium 140, potassium 6.1, chloride 101, CO2 27, anion gap 12, BUN 79, creatinine 3.81, glucose 124, lactic acid 2.5, phosphorus 7.7, magnesium 2.9, total bilirubin 1.2, AST 60, ALT 692, troponin 0.215>. ProBNP > 72022. Lipase is 57, TSH 2.280. UA E not reflective of UTI. MRSA screen was positive. Urine drug screen was positive for cocaine and cannabinoids. Alcohol level< 10. Influenza, RSV, COVID PCR were negative. He was subsequently transferred to the ICU for further evaluation therapy. On arrival to the intensive care unit, he still remains hypoxic despite adjustment in mechanical ventilator settings. Repeat chest x-ray demonstrated occlusion of the right mainstem bronchus with increasing right lung opacification. . A central line was placed as well as an art line for possible vasopressor therapy and ongoing monitoring of his blood pressure subsequent bronchoscopy with resultant suctioning of thick yellow mucus plugs in the right and upper lower lobes right mainstem bronchus was done which significantly improved his oxygen saturations. Renal consultation was requested due to his acute kidney injury/acute renal failure. Recent labs done on his previous hospitalization here at [facility] showed that his renal function / creatinine is usually well within normal limits. However, as noted on admission, his creatinine was up to 3.81 mg/dL. Subsequent labs have shown some improvement in his renal function and he does appear to be making some urine output at this time as well. In spite of his normal creatinine at baseline, he does have significant risk factors for kidney disease in the form of CHF, COPD, and polysubstance abuse. Currently, the patient remains intubated / sedated and on mechanical ventilation and appears in no acute distress. Review of Systems 2 Review of Systems: As per HPI. [facility] Past Medical History Medical History Atrial fibrillation Continuous tobacco abuse Chronic respiratory failure with hypoxia and hypercapnia On home O2 of 3 L Bipolar disorder CHF (congestive heart failure) COPD (chronic obstructive pulmonary disease) Surgical History Surgical History No significant past surgical history Family History Family History Other Unknown family medical history Social History Social History Social History: Code status: Full code (per EMR) Surrogate decision maker: Aura Campos (sister) Smoking packs per day: 1.5 Smoking cigarettes per day: 30.0 Years smoked: 40 Smoking pack-years: 60.00 Smoking status: Current every day smoker Alcohol intake: unknown Substance use: unknown Spiritual care concerns: No Meds Home Medications and Allergies Home Medications ?Medication ?Instructions ?Recorded ?Confirmed ?Type albuterol sulfate 90 mcg/actuation 2 puff inhalation Q4-6H PRN 07/03/24 01/09/25 History aerosol inhaler (Ventolin HFA) Shortness of breath apixaban 5 mg tablet (Eliquis) 5 mg PO BID 07/03/24 01/09/25 History diltiazem HCl 360 mg 360 mg PO DAILY 07/03/24 01/09/25 History capsule,extended release 24 hr furosemide 40 mg tablet 40 mg PO DAILY 07/03/24 01/09/25 History losartan 50 mg tablet 50 mg PO DAILY 07/03/24 01/09/25 History mometasone-formoterol HFA 200 2 puff inhalation BID 07/03/24 01/09/25 History mcg-5 mcg/actuation aerosol inhaler (Dulera) Allergies Allergy/AdvReac Type Severity Reaction Status Date / Time piroxicam Allergy Unknown Unknown Verified 07/03/24 17:10 Vital Signs Vital Signs Temp Pulse Resp BP Pulse Ox O2 Del Method FiO2 01/10/25 12:00 98.9 F 101 H 24 H 132/72 96 Mechanical Venitlation 60 01/10/25 11:00 98.8 F 99 24 H 120/66 99 01/10/25 11:00 112 H 98 Mechanical Ventilation 60 01/10/25 11:00 121 H 24 H 01/10/25 11:00 121 H 24 H 01/10/25 10:00 98.9 F 102 H 24 H 152/77 H 99 01/10/25 10:00 102 H 24 H 01/10/25 10:00 102 H 24 H 01/10/25 10:00 98 01/10/25 09:00 99 F 100 24 H 111/61 97 01/10/25 08:27 103 H 97 Mechanical Ventilation 60 01/10/25 08:27 105 H 24 H 01/10/25 08:00 102 H 24 H 99 Mechanical Ventilation 60 01/10/25 08:00 102 H 01/10/25 08:00 60 01/10/25 08:00 100 24 H 01/10/25 08:00 100 24 H 01/10/25 08:00 107 H 147/90 H 01/10/25 08:00 99 F 102 H 24 H 151/84 H 97 01/10/25 07:57 94 24 H 01/10/25 07:00 99.1 F 93 24 H 148/84 H 97 01/10/25 06:00 100 109/79 01/10/25 06:00 100 24 H 01/10/25 06:00 100 24 H 01/10/25 06:00 99.3 F 100 24 H 109/79 98 01/10/25 06:00 100 01/10/25 05:30 99 110/60 01/10/25 05:05 95 98 Mechanical Ventilation 60 01/10/25 05:00 99.3 F 97 24 H 116/65 99 01/10/25 04:34 100 120/69 01/10/25 04:00 98 01/10/25 04:00 98 24 H 01/10/25 04:00 96 24 H 01/10/25 04:00 97 116/63 01/10/25 04:00 99.3 F 97 24 H 116/63 97 01/10/25 03:44 94 24 H 98 Mechanical Ventilation 70 01/10/25 03:44 70 01/10/25 03:00 99.3 F 94 24 H 113/63 98 01/10/25 03:00 95 24 H 01/10/25 02:30 89 118/81 01/10/25 02:01 85 24 H 01/10/25 02:00 80 24 H 01/10/25 02:00 88 24 H 01/10/25 02:00 80 99/74 L 01/10/25 02:00 99.3 F 88 24 H 99/74 L 97 01/10/25 02:00 98 01/10/25 01:50 93 98 Mechanical Ventilation 70 01/10/25 01:49 110 H 24 H 01/10/25 01:00 99.2 F 83 24 H 117/70 96 01/10/25 00:01 79 24 H 01/10/25 00:01 79 24 H 01/10/25 00:01 79 106/67 01/10/25 00:00 93 01/10/25 00:00 79 24 H 97 Mechanical Ventilation 75 01/10/25 00:00 75 01/10/25 00:00 99.5 F 79 24 H 96/52 L 97 01/09/25 23:45 93 87/50 L 01/09/25 23:00 99.4 F 95 24 H 99/55 L 97 01/09/25 22:20 91 91/50 L 01/09/25 22:00 94 01/09/25 22:00 94 24 H 01/09/25 22:00 94 24 H 01/09/25 22:00 96 123/72 01/09/25 22:00 99.3 F 94 24 H 123/72 95 01/09/25 21:00 99.2 F 98 24 H 138/76 98 01/09/25 20:53 107 H 135/73 01/09/25 20:51 96 24 H 01/09/25 20:30 94 121/86 01/09/25 20:00 94 01/09/25 20:00 107 H 24 H 96 Mechanical Ventilation 85 01/09/25 20:00 99.3 F 95 24 H 132/96 H 96 01/09/25 20:00 96 24 H 01/09/25 20:00 95 132/96 H 01/09/25 19:50 94 24 H 01/09/25 19:40 96 97 Mechanical Ventilation 100 01/09/25 19:29 94 22 H 01/09/25 18:10 98 144/76 H 01/09/25 18:00 95 22 H 01/09/25 18:00 95 22 H 01/09/25 18:00 98 01/09/25 18:00 65 20 01/09/25 18:00 99.5 F 89 22 H 135/77 97 01/09/25 17:52 96 143/87 H Exam 2 Narrative: GENERAL APPEARANCE: ill-appearing male intubated/sedated and on mechanical ventilation HEENT: normocephalic, atraumatic, normal conjunctiva and sclera, nares patient NECK: no lymphadenopathy, thyromegaly, or JVD MOUTH: normal lips, teeth, and gums; ETT in place CARDIOVASCULAR: IRRR, tachycardic,normal S1 and S2, no rub RESPIRATORY: coarse/distant breath sounds noted; decreased at bases ABDOMEN: soft, nontender, nondistended, diminished bowel sounds present EXTREMITIES: no evidence of cyanosis, clubbing, or edema NEUROLOGICAL: unable to fully assess at this time Results Lab Results 01/12/25 05:42 01/12/25 05:42 Lab results: Most recent lab results ABG pH 7.318 (7.350-7.450) L 01/10/25 04:51 ABG pCO2 48.7 mmHg (35.0-45.0) H 01/10/25 04:51 ABG pO2 109.6 mmHg (80.0-100.0) H 01/10/25 04:51 ABG HCO3 24.4 mEq/l (22.0-26.0) 01/10/25 04:51 ABG O2 Saturation 97.6 % (95.0-100.0) 01/10/25 04:51 Calcium 7.9 mg/dL (8.4-10.2) L 01/10/25 04:51 Phosphorus 5.9 mg/dL (2.5-4.5) H 01/10/25 04:51 Magnesium 2.5 mg/dL (1.6-2.3) H 01/10/25 04:51 Urine Creatinine 139.0 mg/dL 01/10/25 08:56
[2025-01-10] MEDS: LACTATED RINGERS 1,000 ML 75 ML IV CONT (12:37)
[2025-01-10] MEDS: DORNASE ALFA INH SOLN 1 MG/ML 2.5 ML AMP 2.5 MG INHALATION ×2 (13:56→20:36)
[2025-01-10] MEDS: MIDAZOLAM HCL (*CRX) 2 MG/2 ML VIAL IV PUSH (14:05)
[2025-01-10] MEDS: fentaNYL CITRATE INJ (*CRX) 100 MCG/2 ML VIAL IV PUSH (14:05)
[2025-01-10] MEDS: NOREPINEPHRINE 8 MG/D5W 250 ML 8 MG/250 ML BAG 9.38 MG IV CONT (14:25)
--- NOTE | 2025-01-10 14:38 | PCRCNOTE ---
Ventilator stated blocked exhalation valve and low vts. RT changed the filter and bagged the pt.
[2025-01-10 16:34] LABS: Partial Thromboplastin Time 139.8 Seconds (22.3-36.8)
[2025-01-10] MEDS: VANCOMYCIN 1,500 MG/NS 500 ML 1,500 MG/500 ML BAG 250 MG IVPB (18:04)
[2025-01-10] MEDS: MIDAZOLAM 100MG/NS 100ML(*CRX) 100 MG/100 ML BAG IV CONT (18:55)
[2025-01-10] MEDS: FENTANYL 2,500MCG/NS250ML(*CRX 2,500 MCG/250 ML BAG 10 MCG IV CONT (19:13)
[2025-01-10 23:29] LABS: Partial Thromboplastin Time 50.9 Seconds (22.3-36.8)
[2025-01-11] VITALS (58 sets, daily range): BP systolic 95–129; BP diastolic 52–84; PULSE 87–128; RESP 17–26; TEMP 36.6–37.1; O2SAT 91–100
[2025-01-11] MEDS: FENTANYL 2,500MCG/NS250ML(*CRX 2,500 MCG/250 ML BAG 10 MCG IV CONT (00:10)
--- NOTE | 2025-01-11 00:58 | PC.NURSE ---
Dr Zamarripa called per elevated heart rate-amiodarone drip ordered with bolus.
[2025-01-11] MEDS: ACETYLCYSTEINE 20% INHAL SOLN 800 MG/4 ML VIAL 200 MG INHALATION ×4 (02:15→20:16)
[2025-01-11] MEDS: IPRATROPIUM 0.5 MG/ALBUTEROL SULFATE 2.5 MG AMPUL.NEB 3 ML INHALATION ×4 (02:15→20:16)
[2025-01-11] MEDS: metroNIDAZOLE 500 MG/ISO 100ML 500 MG/100 ML BAG 100 MG IVPB (03:00)
[2025-01-11] MEDS: HEPARIN SOD/D5W 100 UNITS/ML 25,000 UNITS/250 ML BAG 17 UNITS IV CONT (05:25)
[2025-01-11] MEDS: CEFEPIME 1 GM in SODIUM CHLORIDE 0.9% IV 50 ML 100 ML IVPB ×2 (05:26→17:53)
[2025-01-11] MEDS: CENTRAL LINE FLUSH 20 ML IV PUSH (05:29)
[2025-01-11] MEDS: CENTRAL LINE FLUSH 10 ML IV PUSH ×6 (05:29→23:52)
[2025-01-11 05:55] LABS: Hematocrit 43.8 % (42.0-52.0); Hemoglobin 13.2 g/dL (14.0-18.0); Mean Corpuscular HGB Conc 30.1 g/dl (32-36); Mean Corpuscular Hemoglobin 29.3 pg (26-34); Mean Corpuscular Volume 97.1 fl (80-100); Platelet Count Result 160 k/mm3 (150-375); Red Blood Count 4.51 M/mm3 (4.6-6.20); White Blood Count 11.4 K/mm3 (4.5-10.0)
[2025-01-11 05:56] LABS: Alveolar/Arterial O2 Gradient 207.8 mmHg; Carboxyhemoglobin 0.8 % THb (0-2.0); Fractional Inspired Oxygen 55 %; HCO3 ABG 24.5 mEq/l (22.0-26.0); Methemoglobin ABG 0.4 %THb (0-1.5); Oxygen Content ABG 21.9 %vol (16.0-22.0); Oxygen Saturation ABG 98.3 % (95.0-100.0); PCO2 ABG 50.1 mmHg (35.0-45.0); PO2 ABG 128.6 mmHg (80.0-100.0); PO2 FiO2 Ratio Arterial Blood 2.34 %; Reduced Hemoglobin 1.6 %THb (0-5.0)
[2025-01-11 05:58] LABS: Site Drawn ARTLINE
[2025-01-11 05:59] LABS: Arterial Blood Gas Tidal Volume 500 ml; Arterial Blood Gas Ventilator rate 24 /MIN
[2025-01-11 06:00] LABS: INR 1.3; Prothrombin Time 16.3 Seconds (11.1-14.7)
[2025-01-11 06:02] LABS: Partial Thromboplastin Time 123.3 Seconds (22.3-36.8)
[2025-01-11] MEDS: DOXYCYCLINE IV 100 MG in SODIUM CHLORIDE 0.9% IV 100 ML IVPB ×2 (06:33→18:22)
[2025-01-11 06:55] LABS: Anisocytosis 1+; Band Neutrophils Percent 5 % (0-6); Lymphocytes Absolute Manual 0.22 K/mm3 (1.1-4.5); Lymphocytes Percent Manual 2 % (18-44); Monocytes Absolute Manual 0.34 K/mm3 (0.1-0.90); Monocytes Percent Manual 3 % (3-9); Neutrophils Absolute Manual 10.48 K/mm3 (1.3-6.7); Neutrophils Percent Manual 87 % (46-73); Polychromasia 1+; Schistocytes None Seen; Total Cells Counted 100
[2025-01-11 07:08] LABS: Alanine Aminotransferase 469 U/L (6-50); Albumin Level 2.9 g/dL (3.5-5.1); Alkaline Phosphatase 72 U/L (38-126); Anion Gap 8 mmol/L (4-12); Aspartate Amino Transferase 149 U/L (17-59); Bilirubin,Total 0.4 mg/dL (0.2-1.3); Blood Urea Nitrogen 97 mg/dL (9-20); CRP 12.4 mg/dL (<1.0); Calcium 7.8 mg/dL (8.4-10.2); Carbon Dioxide 25 mmol/L (22-30); Chloride 106 mmol/L (98-107); Estimated CRCL calculation 28 ml/min; Estimated Glomerular Filt Rate 21; Glucose 168 mg/dL (65-110); Magnesium 2.7 mg/dL (1.6-2.3); Potassium 4.5 mmol/L (3.4-5.0); Sodium 139 mmol/L (137-145); Total Protein 5.5 g/dL (6.3-8.2)
[2025-01-11] MEDS: DORNASE ALFA INH SOLN 1 MG/ML 2.5 ML AMP 2.5 MG INHALATION ×2 (08:11→20:17)
[2025-01-11] MEDS: PANTOPRAZOLE SODIUM IV 40 MG VIAL IV PUSH ×2 (09:45→23:52)
--- NOTE | 2025-01-11 09:47 | P.PNINT_ITS ---
Progress Note: A&P Assessment and Plan (1) Acute hypoxic respiratory failure: Code(s): J96.01 - Acute respiratory failure with hypoxia Status: Acute Assessment and Plan: 01/09: Patient presented the ED via EMS after the called 911 as patient has been laying in bed with agonal breathing for the last 2 days, upon arrival of the EMS patient was unresponsive, with agonal breaths. Bag-mask ventilation was started patient was hypotensive, in the ER patient had a GCS of 3 and was emergently intubated. Post intubation patient is on O2 sats were in the upper 60s to 70s. Patient was in a PEEP of 15 and 100% FiO2 -01/09: I was asked to come down to the ER to evaluate the patient, patient was given rocuronium, and revealed emergently to the ICU -remains on CMV mode of ventilation, peep of 12, 55% FiO2, wean FiO2 to maintain O2 sat > 92%, -01/09: emergent bronch was performed in the ICU with significant thick mucus plugs in the right mainstem, right upper lobe and right lower lobe. Suction and cleared most of the secretions with the bronchoscope.O2 sats improved to 95-99% -chest x-ray and ABGs reviewed -ventilator adjusted -chest physiotherapy per RT -continue Mucomyst and Pulmozyme nebulizer -continue DuoNebs -continue Symbicort inhaler -continue Solu-Medrol -sedated with fentanyl and Versed infusion, maintain RASS of 0 to -2, daily SBT and SAT 01/09: CT PE protocol, abdomen and pelvis with no evidence of pulmonary embolism, extensive right upper lobe and lower lobe airspace disease consistent with pneumonia. Bilateral pleural effusion, right greater than left. Hyperdense right renal masses, cannot exclude renal cell carcinoma, consider correlation with MRI abdomen with contrast. Small pericardial (2) Septic shock: Code(s): A41.9 - Sepsis, unspecified organism; R65.21 - Severe sepsis with septic shock Status: Acute Assessment and Plan: Patient with hypotension, acute respiratory failure, lactic acidosis, tachycardia -UA was negative -patient given 2 L IV fluid bolus -continue maintenance IV fluid -lactic acid has normalized -OFF Levophed, will maintain MAP > 65 mm or SBP > 100 mmHg at all times for adequate end organ perfusion -started on cefepime, vancomycin, doxycycline, Flagyl (01/09) -01/09: Blood culture -Gram-positive cocci -01/09: Sputum culture -01/09: Urine culture pending (3) Pneumonia: Qualifiers: Laterality: right Lung location: unspecified part of lung Pneumonia type: due to unspecified organism Qualified Code(s): J18.9 - Pneumonia, unspecified organism Code(s): J18.9 - Pneumonia, unspecified organism Status: Acute Assessment and Plan: Likely pneumonia on of the right upper and lower lobe -COVID, RSV and influenza were NEGATIVE -continue antibiotics as above -currently on mechanical ventilation (4) Acute exacerbation of chronic obstructive pulmonary disease: Code(s): J44.1 - Chronic obstructive pulmonary disease with (acute) exacerbation Status: Acute Assessment and Plan: History of is COPD with emphysema seen on CT scan of the chest -continue bronchodilators as above (5) Atrial fibrillation: Qualifiers: Atrial fibrillation type: unspecified Qualified Code(s): I48.91 - Unspecified atrial fibrillation Code(s): I48.91 - Unspecified atrial fibrillation Status: Acute Assessment and Plan: History of atrial flutter/fibrillation patient is on apixaban at home, hold apixaban for now -currently in AFib, RVR with heart rates in the 100-110s -continue heparin infusion as patient may require further procedures such thoracentesis (6) Polysubstance use disorder: Code(s): F19.90 - Other psychoactive substance use, unspecified, uncomplicated Status: Acute Assessment and Plan: Urine tox screen was positive for cannabis and cocaine (7) Transaminitis: Code(s): R74.01 - Elevation of levels of liver transaminase levels Status: Acute Assessment and Plan: Significantly elevated LFTs, -RUQ ultrasound shows hepatomegaly with additional findings of portal hypertension -hepatitis panel was negative -could also be related to hypoxia, hypotension/shock -liver enzymes trending down gradually -continue to monitor liver function tests (8) Elevated troponin: Code(s): R79.89 - Other specified abnormal findings of blood chemistry Status: Acute Assessment and Plan: Elevated troponin 0.215 -could be related to type 2 infarct, is EKG did not show any ST elevation -troponins were flat 01/10/2025: Echocardiogram Summary 1. Complete two-dimensional, color flow and Doppler transthoracic echocardiogram is performed. 2. Somewhat challenging exam with patient on ventilator support. 3. Normal left ventricular size with overall good systolic function, paradoxical septal motion consistent with bundle branch block. EF 55-60% 4. Right ventricular enlargement with systolic dysfunction. 5. Mild tricuspid regurgitation, estimated RV systolic pressure 51 mmHg. 6. Sclerotic aortic valve which exhibits preserved leaflet excursion. 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 (10) CHF (congestive heart failure): Qualifiers: Heart failure type: unspecified Heart failure chronicity: chronic Qualified Code(s): I50.9 - Heart failure, unspecified Code(s): I50.9 - Heart failure, unspecified Status: Acute Assessment and Plan: Patient has a history of CHF, likely HFpEF -proBNP > 13649 -echocardiogram has been ordered -chest x-ray does not show pulmonary edema (11) Electrolyte imbalance: Code(s): E87.8 - Other disorders of electrolyte and fluid balance, not elsewhere classified Status: Acute Assessment and Plan: Hyperkalemia, initial potassium 6.1 in the ER -potassium stable in normal Plan DVT prophylaxis: Heparin infusion Stress ulcer prophylaxis: Protonix Nutrition: Tolerating tube feeds, advanced to goal Code Status: DNR Critical Care Time Spent: 32 minutes 01/10: Discussed with Aura, sister in rounds, patient lives with her and she is the POA. She did state that he was sleeping for 1.5 to 2 days and did not wake up she she called EMS. She also noted thick secretions on his pillowcase. He does smoke marijuana but she is unaware how he got cocaine, he must have gone out and got some cocaine she states. He has stopped using his oxygen a few months back by himself as he stated he does not need it anymore. He used to be on 5 L nasal cannula at home. I discussed with her at length regarding what happened to the patient and now hypoxic he was creatinine to a bronchoscopy emergently to improve his oxygen levels. She did reiterate that he is a DNR. Due to a high probability of clinically significant, life threatening deterioration, the patient required my highest level of preparedness to intervene emergently and I personally spent this critical care time directly and personally managing the patient. This critical care time included obtaining a history; examining the patient; pulse oximetry; ordering and review of studies; arranging urgent treatment with development of a management plan; evaluation of patient's response to treatment; frequent reassessment; and discussions with other providers. It was exclusive of separately billable procedures and treating other patients and teaching time. Please see Assessment and Plan section and the rest of the note for further information on patient assessment and treatment This dictation may have been done utilizing a voice recognition system. Attempts have been made to correct errors. However, there may be uncorrected grammatical, spelling, and recognitions errors present. Subjective Date/time seen: 01/11/25 09:47 Interval history: Reason for consult: Acute hypoxic respiratory failure, altered mental status, pneumonia, acute kidney injury, hyperkalemia, severe sepsis/shock, transaminitis 01/09: Bronchoscopy 01/11/2025: Patient seen and examined the ICU, remains intubated on CMV mode of ventilation, peep of 12, 55% FiO2, sedated with fentanyl and Versed infusion. Patient does open his eyes and follows simple commands in all extremities. OFF Levophed. Urine output has been adequate, patient is afebrile, hemodynamically stable. Lactic acid is 0.8, LFTs trending down, creatinine slightly better. Review of Systems Review of Systems: ROS unobtainable: Yes unobtainable due to endotracheal tube, unobtainable due to medical condition and unobtainable due to mental status Exam Narrative: General: Patient intubated and sedated, in no acute distress at this time HEENT:? Pupils equally reactive, sclera is clear, ETT in place Neck:? Supple Respiratory:? Coarse breath sounds bilaterally R > L, decreased breath sounds at right base, distant breath sounds Cardiac:? Irregularly irregular, tachycardia Abdomen:? Soft, nontender, nondistended, hypoactive bowel sounds Extremities:? Extremities are warm, palpable pedal pulse Neuro:? Patient intubated, sedated, patient did open his eyes, follows simple commands all extremities bilaterally Skin:? No skin lesions noted Psych:? Unable to assess at this time Objective Data Vital Signs Vital Signs: Vital Signs - 24 hr 01/10/25 10:00 01/10/25 10:00 01/10/25 10:00 Temperature Pulse Rate 98 102 H 102 H Respiratory Rate 24 H 24 H Blood Pressure Pulse Oximetry Oxygen Delivery Fraction of Inspired Oxygen 01/10/25 10:00 01/10/25 11:00 01/10/25 11:00 Temperature 98.9 F Pulse Rate 102 H 121 H 121 H Respiratory Rate 24 H 24 H 24 H Blood Pressure 152/77 H Pulse Oximetry 99 Oxygen Delivery Fraction of Inspired Oxygen 01/10/25 11:00 01/10/25 11:00 01/10/25 12:00 Temperature 98.8 F Pulse Rate 112 H 99 Respiratory Rate 24 H Blood Pressure 120/66 Pulse Oximetry 98 99 Oxygen Delivery Mechanical Ventilation Fraction of Inspired Oxygen 60 60 01/10/25 12:00 01/10/25 12:00 01/10/25 12:00 Temperature 98.9 F Pulse Rate 101 H 102 H 96 Respiratory Rate 24 H 24 H Blood Pressure 132/72 Pulse Oximetry 96 99 Oxygen Delivery Mechanical Ventilation Fraction of Inspired Oxygen 60 01/10/25 13:00 01/10/25 13:32 01/10/25 13:50 Temperature 99.0 F Pulse Rate 97 100 94 Respiratory Rate 24 H 24 H 21 H Blood Pressure 120/68 Pulse Oximetry 97 Oxygen Delivery Fraction of Inspired Oxygen 01/10/25 13:50 01/10/25 13:51 01/10/25 13:51 Temperature Pulse Rate 99 92 99 Respiratory Rate 24 H 24 H Blood Pressure Pulse Oximetry 96 Oxygen Delivery Mechanical Ventilation Fraction of Inspired Oxygen 60 01/10/25 14:00 01/10/25 14:00 01/10/25 14:00 Temperature Pulse Rate 97 85 96 Respiratory Rate 18 24 H Blood Pressure 94/54 L Pulse Oximetry 99 Oxygen Delivery Fraction of Inspired Oxygen 01/10/25 14:00 01/10/25 14:25 01/10/25 15:00 Temperature 98.8 F Pulse Rate 96 99 98 Respiratory Rate 24 H 24 H Blood Pressure 90/47 L 117/68 Pulse Oximetry 96 Oxygen Delivery Fraction of Inspired Oxygen 01/10/25 15:01 01/10/25 16:00 01/10/25 16:00 Temperature 98.8 F Pulse Rate 105 H 100 Respiratory Rate 24 H Blood Pressure 122/66 95/54 L Pulse Oximetry 99 Oxygen Delivery Fraction of Inspired Oxygen 60 01/10/25 16:00 01/10/25 16:00 01/10/25 16:00 Temperature Pulse Rate 94 100 100 Respiratory Rate 24 H Blood Pressure 95/54 L Pulse Oximetry Oxygen Delivery Fraction of Inspired Oxygen 01/10/25 16:00 01/10/25 16:00 01/10/25 16:15 Temperature Pulse Rate 100 102 H 111 H Respiratory Rate 24 H 24 H Blood Pressure Pulse Oximetry 99 99 Oxygen Delivery Mechanical Ventilation Mechanical Ventilation Fraction of Inspired Oxygen 60 60 01/10/25 16:29 01/10/25 17:00 01/10/25 17:00 Temperature 99.0 F Pulse Rate 105 H 126 H 124 H Respiratory Rate 24 H Blood Pressure 95/51 L 88/47 L 89/55 L Pulse Oximetry 98 Oxygen Delivery Fraction of Inspired Oxygen 01/10/25 18:00 01/10/25 18:00 01/10/25 18:00 Temperature 98.7 F Pulse Rate 83 83 83 Respiratory Rate 24 H 24 H Blood Pressure 120/55 L 112/52 L Pulse Oximetry 98 Oxygen Delivery Fraction of Inspired Oxygen 01/10/25 18:00 01/10/25 18:00 01/10/25 18:23 Temperature Pulse Rate 83 83 83 Respiratory Rate 24 H Blood Pressure 112/50 L Pulse Oximetry Oxygen Delivery Fraction of Inspired Oxygen 01/10/25 18:55 01/10/25 18:58 01/10/25 19:13 Temperature 98.7 F Pulse Rate 108 H 84 126 H Respiratory Rate 24 H 24 H 21 H Blood Pressure 116/59 L Pulse Oximetry 100 Oxygen Delivery Fraction of Inspired Oxygen 01/10/25 19:49 01/10/25 20:00 01/10/25 20:00 Temperature 98.7 F 98.8 F Pulse Rate 126 H 126 H 126 H Respiratory Rate 7 L 24 H Blood Pressure 115/78 103/61 Pulse Oximetry 99 Oxygen Delivery Fraction of Inspired Oxygen 01/10/25 20:00 01/10/25 20:00 01/10/25 20:00 Temperature Pulse Rate 126 H 126 H 128 H Respiratory Rate 24 H 24 H Blood Pressure Pulse Oximetry Oxygen Delivery Fraction of Inspired Oxygen 01/10/25 20:00 01/10/25 20:00 01/10/25 20:30 Temperature Pulse Rate 125 H 125 H Respiratory Rate 24 H 24 H Blood Pressure Pulse Oximetry 100 Oxygen Delivery Mechanical Ventilation Fraction of Inspired Oxygen 60 60 01/10/25 20:35 01/10/25 20:40 01/10/25 21:00 Temperature 98.8 F Pulse Rate 106 H 106 H 110 H Respiratory Rate 24 H 17 Blood Pressure 115/78 Pulse Oximetry 99 100 Oxygen Delivery Mechanical Ventilation Fraction of Inspired Oxygen 60 01/10/25 21:00 01/10/25 21:30 01/10/25 22:00 Temperature 98.7 F Pulse Rate 122 H 124 H 123 H Respiratory Rate 24 H 24 H Blood Pressure 111/58 L 115/78 Pulse Oximetry 100 Oxygen Delivery Fraction of Inspired Oxygen 01/10/25 22:00 01/10/25 22:00 01/10/25 22:00 Temperature Pulse Rate 108 H 116 H 116 H Respiratory Rate 24 H Blood Pressure 96/60 L Pulse Oximetry Oxygen Delivery Fraction of Inspired Oxygen 01/10/25 22:00 01/10/25 23:00 01/10/25 23:15 Temperature 98.8 F Pulse Rate 116 H 127 H 127 H Respiratory Rate 24 H Blood Pressure 95/59 L Pulse Oximetry 99 99 Oxygen Delivery Mechanical Ventilation Fraction of Inspired Oxygen 60 01/11/25 00:00 01/11/25 00:00 01/11/25 00:00 Temperature 98.8 F Pulse Rate 128 H 127 H 127 H Respiratory Rate 24 H 24 H Blood Pressure 105/60 100/60 Pulse Oximetry 100 Oxygen Delivery Fraction of Inspired Oxygen 01/11/25 00:00 01/11/25 00:00 01/11/25 00:00 Temperature Pulse Rate 127 H 128 H Respiratory Rate 24 H Blood Pressure Pulse Oximetry 99 Oxygen Delivery Mechanical Ventilation Fraction of Inspired Oxygen 55 55 01/11/25 00:10 01/11/25 00:49 01/11/25 01:01 Temperature 98.7 F Pulse Rate 127 H 127 H 126 H Respiratory Rate 24 H 24 H Blood Pressure 100/54 L 111/61 Pulse Oximetry 100 Oxygen Delivery Fraction of Inspired Oxygen 01/11/25 01:02 01/11/25 01:25 01/11/25 01:30 Temperature 98.6 F 98.6 F Pulse Rate 127 H 120 H 107 H Respiratory Rate 17 22 H Blood Pressure 108/60 Pulse Oximetry 100 Oxygen Delivery Fraction of Inspired Oxygen 01/11/25 01:47 01/11/25 02:00 01/11/25 02:00 Temperature 98.5 F 98.5 F Pulse Rate 115 H 102 H 102 H Respiratory Rate 24 H 18 Blood Pressure 107/64 109/65 Pulse Oximetry 95 100 Oxygen Delivery Fraction of Inspired Oxygen 01/11/25 02:00 01/11/25 02:00 01/11/25 02:00 Temperature Pulse Rate 102 H 102 H 102 H Respiratory Rate 24 H 24 H Blood Pressure Pulse Oximetry Oxygen Delivery Fraction of Inspired Oxygen 01/11/25 02:00 01/11/25 02:15 01/11/25 02:15 Temperature 98.5 F Pulse Rate 105 H 105 H 105 H Respiratory Rate 24 H 24 H Blood Pressure Pulse Oximetry 98 Oxygen Delivery Mechanical Ventilation Fraction of Inspired Oxygen 55 01/11/25 02:29 01/11/25 02:30 01/11/25 02:30 Temperature 98.5 F 98.5 F Pulse Rate 114 H 111 H 105 H Respiratory Rate 18 24 H 17 Blood Pressure Pulse Oximetry 99 97 Oxygen Delivery Fraction of Inspired Oxygen 01/11/25 02:45 01/11/25 03:00 01/11/25 03:00 Temperature 98.5 F 98.4 F 98.5 F Pulse Rate 107 H 110 H 108 H Respiratory Rate 19 24 H 17 Blood Pressure 107/57 L Pulse Oximetry 99 Oxygen Delivery Fraction of Inspired Oxygen 01/11/25 03:16 01/11/25 03:30 01/11/25 03:45 Temperature 98.4 F 98.4 F 98.4 F Pulse Rate 105 H 110 H 107 H Respiratory Rate 21 H 21 H 24 H Blood Pressure Pulse Oximetry 95 97 Oxygen Delivery Fraction of Inspired Oxygen 01/11/25 04:00 01/11/25 04:00 01/11/25 04:00 Temperature 98.4 F Pulse Rate 109 H 108 H 108 H Respiratory Rate 26 H 24 H Blood Pressure 118/64 110/58 L Pulse Oximetry 95 Oxygen Delivery Fraction of Inspired Oxygen 01/11/25 04:00 01/11/25 04:00 01/11/25 04:00 Temperature Pulse Rate 108 H 105 H Respiratory Rate 24 H Blood Pressure Pulse Oximetry Oxygen Delivery Fraction of Inspired Oxygen 55 01/11/25 04:00 01/11/25 04:01 01/11/25 04:03 Temperature 98.4 F 98.4 F Pulse Rate 108 H 114 H 99 Respiratory Rate 24 H 24 H 24 H Blood Pressure 109/76 Pulse Oximetry 91 96 Oxygen Delivery Mechanical Ventilation Fraction of Inspired Oxygen 55 01/11/25 04:21 01/11/25 04:32 01/11/25 04:45 Temperature 98.4 F 98.4 F 98.3 F Pulse Rate 100 119 H 104 H Respiratory Rate 24 H 24 H 19 Blood Pressure Pulse Oximetry Oxygen Delivery Fraction of Inspired Oxygen 01/11/25 05:00 01/11/25 05:10 01/11/25 05:15 Temperature 98.3 F Pulse Rate 106 H 102 H 104 H Respiratory Rate 21 H Blood Pressure 112/62 110/62 Pulse Oximetry 98 96 Oxygen Delivery Mechanical Ventilation Fraction of Inspired Oxygen 55 01/11/25 06:00 01/11/25 06:00 01/11/25 06:34 Temperature 98.2 F Pulse Rate 105 H 108 H 102 H Respiratory Rate 24 H Blood Pressure 112/62 111/60 Pulse Oximetry 98 Oxygen Delivery Fraction of Inspired Oxygen 01/11/25 06:34 01/11/25 06:35 01/11/25 06:40 Temperature 98.4 F Pulse Rate 102 H 102 H 101 H Respiratory Rate 24 H Blood Pressure 106/61 106/61 Pulse Oximetry Oxygen Delivery Fraction of Inspired Oxygen 01/11/25 06:45 01/11/25 07:00 01/11/25 07:00 Temperature 98.4 F 98.4 F Pulse Rate 102 H 101 H 104 H Respiratory Rate 24 H 24 H Blood Pressure Pulse Oximetry Oxygen Delivery Fraction of Inspired Oxygen 01/11/25 07:00 01/11/25 08:00 01/11/25 08:00 Temperature 98.4 F Pulse Rate 104 H 108 H Respiratory Rate 24 H 24 H Blood Pressure 109/76 Pulse Oximetry 91 Oxygen Delivery Fraction of Inspired Oxygen 55 01/11/25 08:00 01/11/25 08:15 01/11/25 08:18 Temperature Pulse Rate 105 H 102 H 102 H Respiratory Rate 24 H Blood Pressure 102/77 Pulse Oximetry 96 Oxygen Delivery Mechanical Ventilation Fraction of Inspired Oxygen 55 01/11/25 08:35 01/11/25 08:56 01/11/25 09:00 Temperature 98.2 F Pulse Rate 99 95 98 Respiratory Rate 24 H 24 H 24 H Blood Pressure 109/59 L Pulse Oximetry 95 Oxygen Delivery Fraction of Inspired Oxygen 01/11/25 09:00 01/11/25 09:41 Temperature Pulse Rate 98 Respiratory Rate 24 H Blood Pressure Pulse Oximetry Oxygen Delivery Fraction of Inspired Oxygen 50 Intake/Output Intake/Output: Intake & Output 01/08/25 01/09/25 01/10/25 01/11/25 23:59 23:59 23:59 23:59 Intake Total 1242.8 3612.6 747.9 Output Total 525 750 400 Balance 717.8 2862.6 347.9 Meds/Results Medications: Active Medications Generic Name Dose Route Start Last Admin Trade Name Freq PRN Reason Stop Dose Admin Acetaminophen 650 mg 01/09/25 14:52 Acetaminophen 650 Mg Suppository RECTAL Q6H PRN Mild Pain (1-3) or Fever Acetylcysteine 200 mg 01/09/25 20:00 01/11/25 08:10 Acetylcysteine 20% Inhal Soln 800 Mg/4 Ml Vial INHALATION 200 mg Q6HRT JENNY Administration Albuterol/Ipratropium 3 ml 01/09/25 20:00 01/11/25 08:11 Ipratropium 0.5 Mg/Albuterol Sulfate 2.5 Mg Ampul.Neb 3 Ml INHALATION 3 ml Q6HRT JENNY Administration Dextrose 12.5 gm 01/10/25 00:27 Dextrose 50% 25 Gm/50 Ml Syringe IV PUSH PRN PRN Hypoglycemia Protocol Dornase Prateek 2.5 mg 01/09/25 20:00 01/11/25 08:11 Dornase Prateek Inh Soln 1 Mg/Ml 2.5 Ml Amp INHALATION 2.5 mg Q12HRT JENNY Administration Glucagon 1 mg 01/10/25 00:27 Glucagon For Inj 1 Mg Vial IM PRN PRN Hypoglycemia Protocol Glucose 15 gm 01/10/25 00:27 Glucose Oral Gel 15 Gm Of Glucse In 37.5 Gm Tube PO PRN PRN Hypoglycemia Protocol Heparin Sodium (Porcine) 7,000 units 01/09/25 18:05 01/10/25 23:53 Heparin Sodium 5,000 Units/Ml Vial IV PUSH 7,000 units PRN PRN Administration aPTT less than 55 seconds Heparin Sodium (Porcine) 3,500 units 01/09/25 18:05 01/10/25 08:58 Heparin Sodium 5,000 Units/Ml Vial IV PUSH 3,500 units PRN PRN Administration aPTT 55 - 70 seconds Doxycycline Hyclate 100 mg/ 100 mls @ 100 mls/hr 01/09/25 19:00 01/11/25 06:33 Sodium Chloride IVPB 100 mls/hr Q12H JENNY Administration Cefepime HCl 1 gm/ Sodium 50 mls @ 100 mls/hr 01/10/25 06:00 01/11/25 07:22 Chloride IVPB Infused Q12H JENNY Infusion Metronidazole 500 mg in 100 mls @ 100 mls/hr 01/10/25 03:00 01/11/25 03:00 Flagyl 500 Mg/Iso Soln 100 Ml IVPB 100 mls/hr Q8H JENNY Administration Heparin Sodium/Dextrose 25,000 units in 250 mls @ 15 mls/hr 01/09/25 18:05 01/11/25 06:06 Heparin Sodium/D5w 100 Units/Ml IV CONT 1,500 units/hr .[id number] JENNY 15 mls/hr Titration Protocol 1,500 UNITS/HR Dextrose 1,000 mls @ 100 mls/hr 01/10/25 00:27 Dextrose 5% 1,000 Ml IVPB PRN PRN Hypoglycemia Protocol Norepinephrine Bitartrate 8 mg in 250 mls @ 0 mls/hr 01/10/25 14:20 01/11/25 06:35 Levophed 8 Mg/D5w 250 Ml IV CONT 0 mcg/min .Q0M JENNY 0 mls/hr Titration Protocol Midazolam HCl 100 mg in 100 mls @ 3 mls/hr 01/10/25 18:40 01/11/25 09:00 Versed 100 Mg/Ns 100 Ml IV CONT 3 mg/hr .[id number] JENNY 3 mls/hr Titration Protocol 3 MG/HR Fentanyl Citrate 2,500 mcg in 250 mls @ 10 mls/hr 01/11/25 00:05 01/11/25 09:00 Fentanyl 2,500 Mcg/Ns 250 Ml IV CONT 100 mcg/hr .Q25H JENNY 10 mls/hr Titration Protocol 100 MCG/HR Amiodarone HCl/Dextrose 360 mg in 200 mls @ 16.667 mls/hr 01/11/25 00:57 01/11/25 06:34 Nexterone 360 Mg/D5w 200 Ml IV CONT 01/11/25 12:56 0.5 mg/min .Q12H ONE 16.67 mls/hr Infusion 0.5 MG/MIN Amiodarone HCl/Dextrose 360 mg in 200 mls @ 16.667 mls/hr 01/11/25 07:00 01/11/25 08:00 Nexterone 360 Mg/D5w 200 Ml IV CONT 0.5 mg/min .Q12H JENNY 16.67 mls/hr Infusion 0.5 MG/MIN Insulin Aspart 3 - 6 units 01/10/25 06:00 01/11/25 07:21 Insulin Aspart (*Bkc) 100 Units/Ml SUB-Q Not Given Q6HR JENNY Protocol Methylprednisolone Sodium Succinate 40 mg 01/09/25 18:15 01/11/25 05:53 Methylprednisolone Sod Succ 40 Mg Vial IV PUSH 40 mg Q6HR JENNY Administration Pantoprazole Sodium 40 mg 01/09/25 21:00 01/11/25 09:45 Pantoprazole Sodium Iv 40 Mg Vial IV PUSH 40 mg Q12HR JENNY Administration Perflutren Lipid Microsphere 0 ml 01/09/25 18:26 Perflutren Lipid Microspheres 1.5 Ml Vial Diluted To 10 Ml Total Volume IV PUSH 01/12/25 18:26 ONCE PRN adequate visualization Protocol Fluticasone/Salmeterol 2 puff 01/09/25 20:00 01/11/25 08:11 Fluticasone/Salmeterol 115-21 Mcg Inhaler 1 Puff INHALATION Not Given Q12HRT JENNY Sodium Chloride 10 ml 01/09/25 22:00 01/11/25 05:29 Central Line Flush IV PUSH 10 ml Q8HR JENNY Administration Sodium Chloride 20 ml 01/09/25 17:08 Central Line Flush IV PUSH PRN PRN after blood draws Sodium Chloride 10 ml 01/09/25 22:00 01/11/25 05:29 Central Line Flush IV PUSH 10 ml Q8HR JENNY Administration Sodium Chloride 20 ml 01/09/25 17:34 01/11/25 05:29 Central Line Flush IV PUSH 20 ml PRN PRN Administration after blood draws Vancomycin HCl 1 each 01/09/25 13:55 Vancomycin For Acute Kidney Injury IVPB PRN PRN Vancomycin Protocol Radiology Results: ITS Impressions Abdomen X-Ray 01/09/25 13:38 IMPRESSION: 1: NG tube tip in the stomach. Chest/Abdomen/Pelvis CTA 01/09/25 13:59 IMPRESSION: 1. Extensive airspace disease of the right upper and lower lobe, consistent with pneumonia. 2: Bilateral pleural effusions, right greater than left. 3: Hypodense right renal masses. Cannot exclude renal cell carcinoma. Consider correlation with MRI abdomen with contrast. 4: Small pericardial effusion. Head CT 01/09/25 14:00 IMPRESSION: 1. No acute intracranial hemorrhage. No mass effect. 2. Probable chronic ischemic white matter change. Renal Ultrasound 01/09/25 19:35 IMPRESSION: No hydronephrosis or renal calculi. Indeterminate focus within the interpolar region of the right kidney, for which contrast enhanced CT or MRI (with renal mass protocol) is suggested for further evaluation. Abdomen Ultrasound 01/09/25 19:44 IMPRESSION: Limited evaluation of the pancreas secondary to overlying bowel gas Hepatomegaly with additional findings of portal hypertension, as detailed above. Chest X-Ray 01/11/25 06:59 Impression: 1: Bilateral airspace disease without significant change. Differential diagnosis includes edema and pneumonia. Labs Labs: Laboratory Results - last 24 hr 01/09/25 01/10/25 01/10/25 18:39 11:22 15:47 WBC RBC Hgb Hct MCV MCH MCHC RDW Plt Count MPV Immature Gran % (Auto) Neut % (Auto) Lymph % (Auto) Williams % (Auto) Eos % (Auto) Baso % (Auto) Lymph # (Auto) Williams # (Auto) Eos # (Auto) Baso # (Auto) Abs Immat Gran (auto) Absolute Neuts (auto) Absolute Nucleated RBC Total Counted Neutrophils % (Manual) Band Neutrophils % Lymphocytes % (Manual) Monocytes % (Manual) Nucleated RBC % Abs Neuts (Manual) Abs Lymphs (Manual) Abs Monocytes (Manual) Nucleated RBCs Platelet Estimate Polychromasia Anisocytosis Schistocytes PT INR APTT 139.8 H Puncture Site ABG pH ABG pCO2 ABG pO2 ABG PO2/FiO2 Ratio ABG HCO3 ABG O2 Saturation ABG O2 Content ABG Base Excess A-a Gradient Oxyhemoglobin Carboxyhemoglobin Methemoglobin Reduced Hemoglobin Total Hemoglobin O2 Delivery Device O2 Liters/Min Minute Volume Vent Rate Vent Mode FiO2 Tidal Volume PEEP Peak Inspir Pressure Pressure Support Sodium Potassium Chloride Carbon Dioxide Anion Gap BUN Creatinine Estim Creat Clear Calc Estimated GFR Glucose POC Capillary Glucose 159 H Lactic Acid Calcium Phosphorus Magnesium Total Bilirubin AST ALT Alkaline Phosphatase C-Reactive Protein Total Protein Albumin Random Vancomycin 9.6 L Urine Pneumococcal Ag Cancelled 01/10/25 01/10/25 01/10/25 18:09 23:13 23:53 WBC RBC Hgb Hct MCV MCH MCHC RDW Plt Count MPV Immature Gran % (Auto) Neut % (Auto) Lymph % (Auto) Williams % (Auto) Eos % (Auto) Baso % (Auto) Lymph # (Auto) Williams # (Auto) Eos # (Auto) Baso # (Auto) Abs Immat Gran (auto) Absolute Neuts (auto) Absolute Nucleated RBC Total Counted Neutrophils % (Manual) Band Neutrophils % Lymphocytes % (Manual) Monocytes % (Manual) Nucleated RBC % Abs Neuts (Manual) Abs Lymphs (Manual) Abs Monocytes (Manual) Nucleated RBCs Platelet Estimate Polychromasia Anisocytosis Schistocytes PT INR APTT 50.9 H Puncture Site ABG pH ABG pCO2 ABG pO2 ABG PO2/FiO2 Ratio ABG HCO3 ABG O2 Saturation ABG O2 Content ABG Base Excess A-a Gradient Oxyhemoglobin Carboxyhemoglobin Methemoglobin Reduced Hemoglobin Total Hemoglobin O2 Delivery Device O2 Liters/Min Minute Volume Vent Rate Vent Mode FiO2 Tidal Volume PEEP Peak Inspir Pressure Pressure Support Sodium Potassium Chloride Carbon Dioxide Anion Gap BUN Creatinine Estim Creat Clear Calc Estimated GFR Glucose POC Capillary Glucose 158 H 147 H Lactic Acid Calcium Phosphorus Magnesium Total Bilirubin AST ALT Alkaline Phosphatase C-Reactive Protein Total Protein Albumin Random Vancomycin Urine Pneumococcal Ag 01/11/25 01/11/25 05:19 05:20 WBC 11.4 H RBC 4.51 L Hgb 13.2 L Hct 43.8 MCV 97.1 MCH 29.3 MCHC 30.1 L RDW 17.1 H Plt Count 160 MPV 11.5 H Immature Gran % (Auto) Not Reportable Neut % (Auto) Not Reportable Lymph % (Auto) Not Reportable Williams % (Auto) Not Reportable Eos % (Auto) Not Reportable Baso % (Auto) Not Reportable Lymph # (Auto) Not Reportable Williams # (Auto) Not Reportable Eos # (Auto) Not Reportable Baso # (Auto) Not Reportable Abs Immat Gran (auto) Not Reportable Absolute Neuts (auto) Not Reportable Absolute Nucleated RBC Not Reportable Total Counted 100 Neutrophils % (Manual) 87 H Band Neutrophils % 5 Lymphocytes % (Manual) 2 L Monocytes % (Manual) 3 Nucleated RBC % Not Reportable Abs Neuts (Manual) 10.48 H Abs Lymphs (Manual) 0.22 L Abs Monocytes (Manual) 0.34 Nucleated RBCs 3 Platelet Estimate Adequate Polychromasia 1+ Anisocytosis 1+ Schistocytes None seen PT 16.3 H INR 1.3 APTT 123.3 H Puncture Site Artline ABG pH 7.307 L ABG pCO2 50.1 H ABG pO2 128.6 H ABG PO2/FiO2 Ratio 2.34 ABG HCO3 24.5 ABG O2 Saturation 98.3 ABG O2 Content 21.9 ABG Base Excess -2.4 A-a Gradient 207.8 Oxyhemoglobin 97.2 Carboxyhemoglobin 0.8 Methemoglobin 0.4 Reduced Hemoglobin 1.6 Total Hemoglobin 15.9 O2 Delivery Device Ventilator O2 Liters/Min Not Reportable Minute Volume Not Reportable Vent Rate 24 Vent Mode Cmv FiO2 55 Tidal Volume 500 PEEP 12 Peak Inspir Pressure Not Reportable Pressure Support Not Reportable Sodium 139 Potassium 4.5 Chloride 106 Carbon Dioxide 25 Anion Gap 8 BUN 97 H D Creatinine 2.98 H Estim Creat Clear Calc 28 Estimated GFR 21 L Glucose 168 H POC Capillary Glucose Lactic Acid 0.8 Calcium 7.8 L Phosphorus 5.1 H Magnesium 2.7 H Total Bilirubin 0.4 AST 149 H ALT 469 H Alkaline Phosphatase 72 C-Reactive Protein 12.4 H Total Protein 5.5 L Albumin 2.9 L Random Vancomycin Urine Pneumococcal Ag Quality VTE Prophylaxis VTE prophylaxis: pharmacologic ordered
--- NOTE | 2025-01-11 11:47 | PCNFU ---
Nutrition Follow-Up Complete: Suboptimal Energy Intake as related to mechanical ventilation as evidenced by NPO. Goal: Meet estimated nutritional needs Patient is progressing towards goal. We will continue current goal. Pt current nutrition is Nepro at 20 ml/hr. Nutrition recommendation: 40 ml/hr. Last recorded weight is 106.2 kg, up from 99 kg on admit. Bowel Motility: No BM reported. Labs Reviewed: PO4 5.1, Mg 2.4, BUN 97, Cr 2.98, Glu 168, Alb 2.9 Meds Noted:Versed, Fentanyl, Protonix. Skin: WNL Additional Notes: Patient remains on mechanical vent. Tube feedings are being tolerating of Nepro at 20 ml/hr. Concession Stand Attendant agreed to increase tube feedings today. orders for Nepro goal rate at 40 ml/hr. Total Nutrition: 1584 kcal/71 gm protein/640 ml water. Flush 30 ml q 4 hours. Tube feedings providing 73% kcal needs at 22 kcal/kg and 60% protein needs at 1.2 gm/kg. Agree with diet orders at this time. Will monitor weight, labs, skin, diet orders, meds every Tuesday and Tuesday.
--- NOTE | 2025-01-11 12:54 | P.PNNP_ITS ---
Progress Note: A&P Assessment and Plan (1) Acute kidney injury: Code(s): N17.9 - Acute kidney failure, unspecified Status: Acute Assessment and Plan: * slow improvement noted * as noted on admission * normal creatinine on hospital discharge in June 2024 * suspect ATN with multifactorial etiology: * infection/sepsis * hemodynamic instability/shock * prerenal factors * ARB + diuretic use prior to admission * polysubstance abuse * other (?) * contrast exposure (CTA C/A/P on 01/09) may hamper/delay recovery * evaluation to date noted: * urine electrolytes pre-renal * CT of abdomen with hypodense right renal masses * renal u/s with nn hydronephrosis or renal calculi; indeterminate focus within the interpolar region of the right kidney * urine eosinophils negative * UA without evidence of infection * CPK normal * trial of IVFs * optimize hemodynamics * remains at risk for [employer]/dialysis * follow trend of repeat labs and UOP (2) Septic shock: Code(s): A41.9 - Sepsis, unspecified organism; R65.21 - Severe sepsis with septic shock Status: Acute Assessment and Plan: * as noted on presetation with hypotension, acute respiratory failure, lactic acidosis, tachycardia, and DERECK * presumably secondary to pneumonia * s/p 2 L IV fluid bolus and on maintenance IV fluid * lactic acid has normalized * weaned off Levophed * follow culture data * on antibiotics * follow trend of hemodynamics (3) Acute hypoxic respiratory failure: Code(s): J96.01 - Acute respiratory failure with hypoxia Status: Acute Assessment and Plan: * as noted on presentation to the ER * intubated in ER on admission (due to hypoxia and agonal breathing) * complicated by mucus plugging of right main stem bronchus requiring bronchoscopy with suctioning of secretions * CT imaging noted * no evidence of pulmonary embolism, extensive right upper lobe and lower lobe airspace disease consistent with pneumonia; ilateral pleural effusion, right greater than left * Echo noted: * normal left ventricular size with overall good systolic function, paradoxical septal motion consistent with bundle branch block * EF 55-60% * right ventricular enlargement with systolic dysfunction * mild tricuspid regurgitation, estimated RV systolic pressure 51 mmHg * sclerotic aortic valve which exhibits preserved leaflet excursion * on ventilator support * chest physiotherapy * on nebulizer therapy, mucomyst, and pulmozyme * further complicated by known history of COPD (4) Pneumonia: Qualifiers: Laterality: right Lung location: unspecified part of lung Pneumonia type: due to unspecified organism Qualified Code(s): J18.9 - Pneumonia, unspecified organism Code(s): J18.9 - Pneumonia, unspecified organism Status: Acute Assessment and Plan: * as suggested by imaging to date * COVID, RSV and influenza testing negative * continue antibiotics * follow respiratory status (5) Acute exacerbation of chronic obstructive pulmonary disease: Code(s): J44.1 - Chronic obstructive pulmonary disease with (acute) exacerbation Status: Acute Assessment and Plan: * known history of is COPD with emphysema seen on CT scan of the chest * likely precipitated by pneumonia * on bronchodilator therapy (6) Atrial fibrillation: Qualifiers: Atrial fibrillation type: unspecified Qualified Code(s): I48.91 - Unspecified atrial fibrillation Code(s): I48.91 - Unspecified atrial fibrillation Status: Acute Assessment and Plan: * rate control strategy * on heparin gtt for anticoagulation (7) Transaminitis: Code(s): R74.01 - Elevation of levels of liver transaminase levels Status: Acute Assessment and Plan: * slow improvement * significantly elevated LFTs on admission * due to hypotension/shock and hypotension on presentation (?) * RUQ ultrasound shows hepatomegaly with additional findings of portal hypertension * hepatitis panel was negative * follow trend (8) Polysubstance use disorder: Code(s): F19.90 - Other psychoactive substance use, unspecified, uncomplicated Status: Acute Assessment and Plan: * urine tox screen was positive for cannabis and cocaine Will continue to follow. L Subjective Date/time seen: 01/11/25 12:54 Interval history: Follow-up for acute kidney injury/acute renal failure. Remains intubated/sedated and on mechanical ventilation at the time of my visit; weaned off levophed with stable hemodynamics noted; renal function/creatinine slightly better with reasonably urine output noted; no other acute issues/events overnight or earlier this morning. Exam 2 Narrative: General: ill appearing male intubated/sedated and on mechanical ventilation Heart: IRRR, normal S1 and S2; no rub Lungs: coarse and distant breath sounds; decreased at bases Abdomen: soft, nontender, nondistended, decreased bowel sounds Extremities: no cyanosis or clubbing; no edema Skin: warm and dry Objective Data Vital Signs Vital Signs: Vital Signs Temp Pulse Resp BP Pulse Ox O2 Del Method FiO2 01/11/25 17:00 98.4 F 101 H 26 H 100/58 L 99 01/11/25 16:51 100 99/55 L 01/11/25 16:51 100 99/55 L 01/11/25 16:00 96 26 H 01/11/25 16:00 96 26 H 01/11/25 16:00 106 H 103/54 L 01/11/25 16:00 98.5 F 95 26 H 95/55 L 99 01/11/25 14:00 101 H 01/11/25 14:00 100 26 H 01/11/25 14:00 103 H 103/56 L 01/11/25 14:00 98.5 F 98 26 H 98/52 L 98 01/11/25 13:54 110 H 26 H 01/11/25 13:25 126 H 24 H 01/11/25 13:25 124 H 96 Mechanical Ventilation 50 01/11/25 13:00 100 26 H 01/11/25 13:00 98.5 F 103 H 26 H 129/78 98 01/11/25 13:00 98.5 F 100 26 H 107/84 100 01/11/25 12:00 104 H 01/11/25 12:00 98 Mechanical Ventilation 50 01/11/25 12:00 50 01/11/25 12:00 100 26 H 01/11/25 12:00 100 26 H 01/11/25 12:00 100 97/53 L 01/11/25 12:00 98.3 F 104 H 26 H 98/72 L 98 01/11/25 10:51 98.3 F 101 H 26 H 102/77 98 01/11/25 10:51 96 95 Mechanical Ventilation 50 01/11/25 10:00 111 H 01/11/25 10:00 106 H 26 H 01/11/25 10:00 106 H 26 H 01/11/25 10:00 106 H 106/59 L 01/11/25 10:00 98.3 F 99 26 H 102/77 98 01/11/25 09:41 50 01/11/25 09:00 98 24 H 01/11/25 09:00 98 24 H 01/11/25 08:56 98.2 F 95 24 H 109/59 L 95 01/11/25 08:35 99 24 H 01/11/25 08:18 102 H 24 H 01/11/25 08:15 102 H 96 Mechanical Ventilation 55 01/11/25 08:00 99 01/11/25 08:00 100 Mechanical Ventilation 55 01/11/25 08:00 105 H 102/77 01/11/25 08:00 55 01/11/25 08:00 98.4 F 108 H 24 H 109/76 91 01/11/25 07:00 104 H 24 H 01/11/25 07:00 104 H 24 H 01/11/25 07:00 98.4 F 101 H 01/11/25 06:45 98.4 F 102 H 24 H 01/11/25 06:40 98.4 F 101 H 24 H 01/11/25 06:35 102 H 106/61 01/11/25 06:34 102 H 106/61 01/11/25 06:34 102 H 111/60 01/11/25 06:00 98.2 F 108 H 24 H 112/62 98 01/11/25 06:00 105 H 01/11/25 05:15 104 H 96 Mechanical Ventilation 55 01/11/25 05:10 102 H 110/62 01/11/25 05:00 98.3 F 106 H 21 H 112/62 98 01/11/25 04:45 98.3 F 104 H 19 01/11/25 04:32 98.4 F 119 H 24 H 01/11/25 04:21 98.4 F 100 24 H 01/11/25 04:03 98.4 F 99 24 H 01/11/25 04:01 98.4 F 114 H 24 H 109/76 96 01/11/25 04:00 108 H 24 H 91 Mechanical Ventilation 55 01/11/25 04:00 55 01/11/25 04:00 105 H 01/11/25 04:00 108 H 24 H 01/11/25 04:00 108 H 24 H 01/11/25 04:00 108 H 110/58 L 01/11/25 04:00 98.4 F 109 H 26 H 118/64 95 01/11/25 03:45 98.4 F 107 H 24 H 97 01/11/25 03:30 98.4 F 110 H 21 H 01/11/25 03:16 98.4 F 105 H 21 H 95 01/11/25 03:00 98.5 F 108 H 17 01/11/25 03:00 98.4 F 110 H 24 H 107/57 L 99 01/11/25 02:45 98.5 F 107 H 19 01/11/25 02:30 98.5 F 105 H 17 97 01/11/25 02:30 111 H 24 H 01/11/25 02:29 98.5 F 114 H 18 99 01/11/25 02:15 105 H 98 Mechanical Ventilation 55 01/11/25 02:15 105 H 24 H 01/11/25 02:00 98.5 F 105 H 24 H 01/11/25 02:00 102 H 01/11/25 02:00 102 H 24 H 01/11/25 02:00 102 H 24 H 01/11/25 02:00 102 H 109/65 01/11/25 02:00 98.5 F 102 H 18 107/64 100 01/11/25 01:47 98.5 F 115 H 24 H 95 01/11/25 01:30 98.6 F 107 H 22 H 100 01/11/25 01:25 98.6 F 120 H 17 01/11/25 01:02 127 H 108/60 01/11/25 01:01 126 H 111/61 01/11/25 00:49 98.7 F 127 H 24 H 100/54 L 100 01/11/25 00:10 127 H 24 H 01/11/25 00:00 55 01/11/25 00:00 128 H 01/11/25 00:00 127 H 24 H 99 Mechanical Ventilation 55 01/11/25 00:00 127 H 24 H 01/11/25 00:00 127 H 100/60 01/11/25 00:00 98.8 F 128 H 24 H 105/60 100 01/10/25 23:15 127 H 99 Mechanical Ventilation 60 01/10/25 23:00 98.8 F 127 H 95/59 L 99 01/10/25 22:00 116 H 24 H 01/10/25 22:00 116 H 24 H 01/10/25 22:00 116 H 96/60 L 01/10/25 22:00 108 H 01/10/25 22:00 98.7 F 123 H 24 H 115/78 100 01/10/25 21:30 124 H 111/58 L 01/10/25 21:00 122 H 24 H 01/10/25 21:00 98.8 F 110 H 17 115/78 100 01/10/25 20:40 106 H 24 H 01/10/25 20:35 106 H 99 Mechanical Ventilation 60 01/10/25 20:30 125 H 24 H 01/10/25 20:00 60 01/10/25 20:00 125 H 24 H 100 Mechanical Ventilation 60 01/10/25 20:00 128 H 01/10/25 20:00 126 H 24 H 01/10/25 20:00 126 H 24 H 01/10/25 20:00 126 H 103/61 01/10/25 20:00 98.8 F 126 H 24 H 115/78 99 01/10/25 19:49 98.7 F 126 H 7 L 01/10/25 19:13 126 H 21 H 01/10/25 18:58 98.7 F 84 24 H 116/59 L 100 01/10/25 18:55 108 H 24 H 01/10/25 18:23 83 112/50 L 01/10/25 18:00 83 01/10/25 18:00 83 24 H 01/10/25 18:00 83 24 H 01/10/25 18:00 83 112/52 L 01/10/25 18:00 98.7 F 83 24 H 120/55 L 98 Intake/Output Intake/Output: Intake & Output 01/08/25 01/09/25 01/10/25 01/11/25 23:59 23:59 23:59 23:59 Intake Total 1242.8 3612.6 1107.8 Output Total 525 750 400 Balance 717.8 2862.6 707.8 Meds/Results Medications: Active Medications Generic Name Dose Route Start Last Admin Trade Name Freq PRN Reason Stop Dose Admin Acetaminophen 650 mg 01/09/25 14:52 Acetaminophen 650 Mg Suppository RECTAL Q6H PRN Mild Pain (1-3) or Fever Acetylcysteine 200 mg 01/09/25 20:00 01/11/25 13:25 Acetylcysteine 20% Inhal Soln 800 Mg/4 Ml Vial INHALATION 200 mg Q6HRT JENNY Administration Albuterol/Ipratropium 3 ml 01/09/25 20:00 01/11/25 13:25 Ipratropium 0.5 Mg/Albuterol Sulfate 2.5 Mg Ampul.Neb 3 Ml INHALATION 3 ml Q6HRT JENNY Administration Dextrose 12.5 gm 01/10/25 00:27 Dextrose 50% 25 Gm/50 Ml Syringe IV PUSH PRN PRN Hypoglycemia Protocol Dornase Prateek 2.5 mg 01/09/25 20:00 01/11/25 08:11 Dornase Prateek Inh Soln 1 Mg/Ml 2.5 Ml Amp INHALATION 01/12/25 19:59 2.5 mg Q12HRT JENNY Administration Glucagon 1 mg 01/10/25 00:27 Glucagon For Inj 1 Mg Vial IM PRN PRN Hypoglycemia Protocol Glucose 15 gm 01/10/25 00:27 Glucose Oral Gel 15 Gm Of Glucse In 37.5 Gm Tube PO PRN PRN Hypoglycemia Protocol Heparin Sodium (Porcine) 7,000 units 01/09/25 18:05 01/10/25 23:53 Heparin Sodium 5,000 Units/Ml Vial IV PUSH 7,000 units PRN PRN Administration aPTT less than 55 seconds Heparin Sodium (Porcine) 3,500 units 01/09/25 18:05 01/10/25 08:58 Heparin Sodium 5,000 Units/Ml Vial IV PUSH 3,500 units PRN PRN Administration aPTT 55 - 70 seconds Doxycycline Hyclate 100 mg/ 100 mls @ 100 mls/hr 01/09/25 19:00 01/11/25 07:33 Sodium Chloride IVPB 01/14/25 18:59 Infused Q12H JENNY Infusion Cefepime HCl 1 gm/ Sodium 50 mls @ 100 mls/hr 01/10/25 06:00 01/11/25 07:22 Chloride IVPB Infused Q12H JENNY Infusion Heparin Sodium/Dextrose 25,000 units in 250 mls @ 15 mls/hr 01/09/25 18:05 01/11/25 13:06 Heparin Sodium/D5w 100 Units/Ml IV CONT 1,500 units/hr .[id number] JENNY 15 mls/hr Titration Protocol 1,500 UNITS/HR Dextrose 1,000 mls @ 100 mls/hr 01/10/25 00:27 Dextrose 5% 1,000 Ml IVPB PRN PRN Hypoglycemia Protocol Norepinephrine Bitartrate 8 mg in 250 mls @ 0 mls/hr 01/10/25 14:20 01/11/25 06:35 Levophed 8 Mg/D5w 250 Ml IV CONT 0 mcg/min .Q0M JENNY 0 mls/hr Titration Protocol Midazolam HCl 100 mg in 100 mls @ 2 mls/hr 01/10/25 18:40 01/11/25 14:00 Versed 100 Mg/Ns 100 Ml IV CONT 2 mg/hr .Q50H JENNY 2 mls/hr Titration Protocol 2 MG/HR Fentanyl Citrate 2,500 mcg in 250 mls @ 10 mls/hr 01/11/25 00:05 01/11/25 13:00 Fentanyl 2,500 Mcg/Ns 250 Ml IV CONT 100 mcg/hr .Q25H JENNY 10 mls/hr Titration Protocol 100 MCG/HR Amiodarone HCl/Dextrose 360 mg in 200 mls @ 16.667 mls/hr 01/11/25 07:00 01/11/25 14:00 Nexterone 360 Mg/D5w 200 Ml IV CONT 0.5 mg/min .Q12H JENNY 16.67 mls/hr Infusion 0.5 MG/MIN Insulin Aspart 3 - 6 units 01/10/25 06:00 01/11/25 12:18 Insulin Aspart (*Bkc) 100 Units/Ml SUB-Q Not Given Q6HR JENNY Protocol Methylprednisolone Sodium Succinate 40 mg 01/11/25 18:00 Methylprednisolone Sod Succ 40 Mg Vial IV PUSH Q12H JENNY Pantoprazole Sodium 40 mg 01/09/25 21:00 01/11/25 09:45 Pantoprazole Sodium Iv 40 Mg Vial IV PUSH 40 mg Q12HR JENNY Administration Perflutren Lipid Microsphere 0 ml 01/09/25 18:26 Perflutren Lipid Microspheres 1.5 Ml Vial Diluted To 10 Ml Total Volume IV PUSH 01/12/25 18:26 ONCE PRN adequate visualization Protocol Fluticasone/Salmeterol 2 puff 01/09/25 20:00 01/11/25 08:11 Fluticasone/Salmeterol 115-21 Mcg Inhaler 1 Puff INHALATION Not Given Q12HRT JENNY Sodium Chloride 10 ml 01/09/25 22:00 01/11/25 13:10 Central Line Flush IV PUSH 10 ml Q8HR JENNY Administration Sodium Chloride 20 ml 01/09/25 17:08 Central Line Flush IV PUSH PRN PRN after blood draws Sodium Chloride 10 ml 01/09/25 22:00 01/11/25 13:10 Central Line Flush IV PUSH 10 ml Q8HR JENNY Administration Sodium Chloride 20 ml 01/09/25 17:34 01/11/25 05:29 Central Line Flush IV PUSH 20 ml PRN PRN Administration after blood draws Vancomycin HCl 1 each 01/09/25 13:55 Vancomycin For Acute Kidney Injury IVPB PRN PRN Vancomycin Protocol Radiology Results: ITS Impressions Abdomen X-Ray 01/09/25 13:38 IMPRESSION: 1: NG tube tip in the stomach. Chest/Abdomen/Pelvis CTA 01/09/25 13:59 IMPRESSION: 1. Extensive airspace disease of the right upper and lower lobe, consistent with pneumonia. 2: Bilateral pleural effusions, right greater than left. 3: Hypodense right renal masses. Cannot exclude renal cell carcinoma. Consider correlation with MRI abdomen with contrast. 4: Small pericardial effusion. Head CT 01/09/25 14:00 IMPRESSION: 1. No acute intracranial hemorrhage. No mass effect. 2. Probable chronic ischemic white matter change. Renal Ultrasound 01/09/25 19:35 IMPRESSION: No hydronephrosis or renal calculi. Indeterminate focus within the interpolar region of the right kidney, for which contrast enhanced CT or MRI (with renal mass protocol) is suggested for further evaluation. Abdomen Ultrasound 01/09/25 19:44 IMPRESSION: Limited evaluation of the pancreas secondary to overlying bowel gas Hepatomegaly with additional findings of portal hypertension, as detailed above. Chest X-Ray 01/11/25 06:59 Impression: 1: Bilateral airspace disease without significant change. Differential diagnosis includes edema and pneumonia. Labs Labs: Laboratory Tests 01/11/25 05:20 01/11/25 05:20 Lactic Acid 0.8 Calcium 7.8 L Phosphorus 5.1 H Magnesium 2.7 H Total Bilirubin 0.4 AST 149 H ALT 469 H Alkaline Phosphatase 72 C-Reactive Protein 12.4 H Total Protein 5.5 L Albumin 2.9 L Microbiology 01/09/25 23:07 Sputum Sputum White Blood Cells - Final 01/09/25 23:07 Sputum Sputum Epithelial Cells - Final 01/09/25 23:07 Sputum Gram Stain Sputum Result 1 - Final 01/09/25 23:07 Sputum Gram Stain Sputum Result 2 - Final 01/09/25 23:07 Sputum Gram Stain Sputum Result 3 - Final 01/09/25 23:07 Sputum Gram Stain Sputum Result 4 - Final 01/09/25 23:07 Sputum Gram Stain Evaluation - Final 01/09/25 23:07 Sputum Sputum Culture - Preliminary 01/09/25 15:03 Blood Blood Culture - Preliminary 01/09/25 18:39 urine - Urine Microbiology Comment - Final Not Reportable
[2025-01-11 12:59] LABS: Partial Thromboplastin Time 75.0 Seconds (22.3-36.8)
[2025-01-11] MEDS: VANCOMYCIN 1,500 MG/NS 500 ML 1,500 MG/500 ML BAG 250 MG IVPB (17:53)
[2025-01-11] MEDS: HEPARIN SOD/D5W 100 UNITS/ML 25,000 UNITS/250 ML BAG 15 UNITS IV CONT (18:55)
[2025-01-11 18:57] LABS: Partial Thromboplastin Time 76.0 Seconds (22.3-36.8)
[2025-01-11] MEDS: MIDAZOLAM 100MG/NS 100ML(*CRX) 100 MG/100 ML BAG IV CONT (23:15)
[2025-01-11] MEDS: FENTANYL 2,500MCG/NS250ML(*CRX 2,500 MCG/250 ML BAG 12.5 MCG IV CONT (23:15)
[2025-01-12] VITALS (49 sets, daily range): BP systolic 84–140; BP diastolic 48–82; PULSE 78–128; RESP 16–28; TEMP 36.5–37; O2SAT 94–100
[2025-01-12] MEDS: ACETYLCYSTEINE 20% INHAL SOLN 800 MG/4 ML VIAL 200 MG INHALATION ×4 (02:29→20:15)
[2025-01-12] MEDS: IPRATROPIUM 0.5 MG/ALBUTEROL SULFATE 2.5 MG AMPUL.NEB 3 ML INHALATION ×4 (02:30→20:16)
[2025-01-12 05:27] LABS: Alveolar/Arterial O2 Gradient 202.0 mmHg; Carboxyhemoglobin 0.5 % THb (0-2.0); Fractional Inspired Oxygen 50 %; HCO3 ABG 24.6 mEq/l (22.0-26.0); Methemoglobin ABG 0.2 %THb (0-1.5); Oxygen Content ABG 17.6 %vol (16.0-22.0); Oxygen Saturation ABG 97.6 % (95.0-100.0); PCO2 ABG 44.5 mmHg (35.0-45.0); PO2 ABG 104.4 mmHg (80.0-100.0); PO2 FiO2 Ratio Arterial Blood 2.09 %; Reduced Hemoglobin 2.2 %THb (0-5.0)
[2025-01-12 05:29] LABS: Site Drawn ARTLINE
[2025-01-12 05:30] LABS: Arterial Blood Gas Tidal Volume 500 ml; Arterial Blood Gas Ventilator rate 26 /MIN
[2025-01-12 05:53] LABS: Hematocrit 41.1 % (42.0-52.0); Hemoglobin 12.4 g/dL (14.0-18.0); Immature Granulocyte Percent A 0.8 % (0-0.5); Lymphocytes Absolute Auto 0.29 K/mm3 (0.9-3.2); Mean Corpuscular HGB Conc 30.2 g/dl (32-36); Mean Corpuscular Hemoglobin 29.5 pg (26-34); Mean Corpuscular Volume 97.9 fl (80-100); Nucleated Red Blood Cells Absolute Auto 0.070 K/mm3 (0.0-0.012); Nucleated Red Blood Cells Perc 0.7 % (0.0-0.2); Platelet Count Result 133 k/mm3 (150-375); Red Blood Count 4.20 M/mm3 (4.6-6.20); White Blood Count 10.6 K/mm3 (4.5-10.0)
[2025-01-12 06:02] LABS: INR 1.1; Prothrombin Time 14.7 Seconds (11.1-14.7)
[2025-01-12 06:04] LABS: Partial Thromboplastin Time 77.6 Seconds (22.3-36.8)
[2025-01-12] MEDS: CEFEPIME 1 GM in SODIUM CHLORIDE 0.9% IV 50 ML 100 ML IVPB ×2 (06:05→17:04)
[2025-01-12] MEDS: CENTRAL LINE FLUSH 10 ML IV PUSH ×6 (06:12→20:12)
[2025-01-12 06:18] LABS: Alanine Aminotransferase 525 U/L (6-50); Albumin Level 2.8 g/dL (3.5-5.1); Alkaline Phosphatase 73 U/L (38-126); Anion Gap 7 mmol/L (4-12); Aspartate Amino Transferase 212 U/L (17-59); Bilirubin,Total 0.3 mg/dL (0.2-1.3); Blood Urea Nitrogen 103 mg/dL (9-20); CRP 5.4 mg/dL (<1.0); Calcium 8.1 mg/dL (8.4-10.2); Carbon Dioxide 25 mmol/L (22-30); Chloride 108 mmol/L (98-107); Estimated CRCL calculation 33 ml/min; Estimated Glomerular Filt Rate 25; Glucose 141 mg/dL (65-110); Magnesium 2.8 mg/dL (1.6-2.3); Potassium 4.3 mmol/L (3.4-5.0); Sodium 140 mmol/L (137-145); Total Protein 5.2 g/dL (6.3-8.2)
[2025-01-12] MEDS: DOXYCYCLINE IV 100 MG in SODIUM CHLORIDE 0.9% IV 100 ML IVPB ×2 (07:53→18:37)
--- NOTE | 2025-01-12 08:08 | PM.IMPN ---
Progress Note: A&P Assessment and Plan (1) Acute hypoxic respiratory failure: Code(s): J96.01 - Acute respiratory failure with hypoxia Status: Acute Assessment and Plan: 01/09: Patient presented the ED via EMS after the called 911 as patient has been laying in bed with agonal breathing for the last 2 days, upon arrival of the EMS patient was unresponsive, with agonal breaths. Bag-mask ventilation was started patient was hypotensive, in the ER patient had a GCS of 3 and was emergently intubated. Post intubation patient is on O2 sats were in the upper 60s to 70s. Patient was in a PEEP of 15 and 100% FiO2 -01/09: I was asked to come down to the ER to evaluate the patient, patient was given rocuronium, and revealed emergently to the ICU -remains on CMV mode of ventilation, peep of 12, 55% FiO2, wean FiO2 to maintain O2 sat > 92%, -01/09: emergent bronch was performed in the ICU with significant thick mucus plugs in the right mainstem, right upper lobe and right lower lobe. Suction and cleared most of the secretions with the bronchoscope.O2 sats improved to 95-99% -chest x-ray and ABGs reviewed -ventilator adjusted -chest physiotherapy per RT -continue Mucomyst and Pulmozyme nebulizer -continue DuoNebs -continue Symbicort inhaler -continue Solu-Medrol -sedated with fentanyl and Versed infusion, maintain RASS of 0 to -2, daily SBT and SAT 01/09: CT PE protocol, abdomen and pelvis with no evidence of pulmonary embolism, extensive right upper lobe and lower lobe airspace disease consistent with pneumonia. Bilateral pleural effusion, right greater than left. Hyperdense right renal masses, cannot exclude renal cell carcinoma, consider correlation with MRI abdomen with contrast. Small pericardial (2) Septic shock: Code(s): A41.9 - Sepsis, unspecified organism; R65.21 - Severe sepsis with septic shock Status: Acute Assessment and Plan: Patient with hypotension, acute respiratory failure, lactic acidosis, tachycardia -UA was negative -patient given 2 L IV fluid bolus -continue maintenance IV fluid -lactic acid has normalized -OFF Levophed, will maintain MAP > 65 mm or SBP > 100 mmHg at all times for adequate end organ perfusion -started on cefepime, vancomycin, doxycycline, Flagyl (01/09) -01/09: Blood culture -Gram-positive cocci -01/09: Sputum culture -01/09: Urine culture pending (3) Pneumonia: Qualifiers: Laterality: right Lung location: unspecified part of lung Pneumonia type: due to unspecified organism Qualified Code(s): J18.9 - Pneumonia, unspecified organism Code(s): J18.9 - Pneumonia, unspecified organism Status: Acute Assessment and Plan: Likely pneumonia on of the right upper and lower lobe -COVID, RSV and influenza were NEGATIVE -continue antibiotics as above -currently on mechanical ventilation (4) Acute exacerbation of chronic obstructive pulmonary disease: Code(s): J44.1 - Chronic obstructive pulmonary disease with (acute) exacerbation Status: Acute Assessment and Plan: History of is COPD with emphysema seen on CT scan of the chest -continue bronchodilators as above (5) Atrial fibrillation: Qualifiers: Atrial fibrillation type: unspecified Qualified Code(s): I48.91 - Unspecified atrial fibrillation Code(s): I48.91 - Unspecified atrial fibrillation Status: Acute Assessment and Plan: History of atrial flutter/fibrillation patient is on apixaban at home, hold apixaban for now -currently in AFib, RVR with heart rates in the 100-110s -continue heparin infusion as patient may require further procedures such thoracentesis (6) Polysubstance use disorder: Code(s): F19.90 - Other psychoactive substance use, unspecified, uncomplicated Status: Acute Assessment and Plan: Urine tox screen was positive for cannabis and cocaine (7) Transaminitis: Code(s): R74.01 - Elevation of levels of liver transaminase levels Status: Acute Assessment and Plan: Significantly elevated LFTs, -RUQ ultrasound shows hepatomegaly with additional findings of portal hypertension -hepatitis panel was negative -could also be related to hypoxia, hypotension/shock -liver enzymes trending down gradually -continue to monitor liver function tests (8) Elevated troponin: Code(s): R79.89 - Other specified abnormal findings of blood chemistry Status: Acute Assessment and Plan: Elevated troponin 0.215 -could be related to type 2 infarct, is EKG did not show any ST elevation -troponins were flat 01/10/2025: Echocardiogram Summary 1. Complete two-dimensional, color flow and Doppler transthoracic echocardiogram is performed. 2. Somewhat challenging exam with patient on ventilator support. 3. Normal left ventricular size with overall good systolic function, paradoxical septal motion consistent with bundle branch block. EF 55-60% 4. Right ventricular enlargement with systolic dysfunction. 5. Mild tricuspid regurgitation, estimated RV systolic pressure 51 mmHg. 6. Sclerotic aortic valve which exhibits preserved leaflet excursion. (9) Current smoker: Code(s): F17.200 - Nicotine dependence, unspecified, uncomplicated Status: Acute Assessment and Plan: Will corporate counsel patient on tobacco cessation once he is extubated (10) CHF (congestive heart failure): Qualifiers: Heart failure chronicity: chronic Heart failure type: unspecified Qualified Code(s): I50.9 - Heart failure, unspecified Code(s): I50.9 - Heart failure, unspecified Status: Acute Assessment and Plan: Patient has a history of CHF, likely HFpEF -proBNP > 09135 -echocardiogram has been ordered -chest x-ray does not show pulmonary edema (11) Electrolyte imbalance: Code(s): E87.8 - Other disorders of electrolyte and fluid balance, not elsewhere classified Status: Acute Assessment and Plan: Hyperkalemia, initial potassium 6.1 in the ER -potassium stable in normal Plan DVT prophylaxis: Heparin infusion Stress ulcer prophylaxis: Protonix Nutrition: Tolerating tube feeds, advanced to goal Code Status: DNR Subjective Date/time seen: 01/12/25 08:08 Interval history: Intubated and sedated. 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 Review of Systems Review of Systems: ROS unobtainable: Yes unobtainable due to endotracheal tube, unobtainable due to medical condition and unobtainable due to mental status Exam Narrative: General: Patient intubated and sedated, in no acute distress at this time HEENT:? Pupils equally reactive, sclera is clear, ETT in place Neck:? Supple Respiratory:? Coarse breath sounds bilaterally R > L, decreased breath sounds at right base, distant breath sounds Cardiac:? Irregularly irregular, tachycardia Abdomen:? Soft, nontender, nondistended, hypoactive bowel sounds Extremities:? Extremities are warm, palpable pedal pulse Neuro:? Patient intubated, sedated, patient did open his eyes, follows simple commands all extremities bilaterally Skin:? No skin lesions noted Psych:? Unable to assess at this time Const: General: comfortable and no acute distress Other: , male, intubated and sedated. HENMT: Face/Nose/Sinus: Normal nares present Mouth: Yes moist mucous membranes Other: ETT and OG in place Eyes: General: appearance normal, both eyes and all related structures Sclera: sclerae normal Pupils: Equal, round and reactive pupils present EOM: EOMs intact bilaterally Resp: Other: Coarse breath sounds bilaterally, right greater than left. Diminished at bases. Tolerating that well. No distress noted. Cardio: Rate: regular rate Rhythm: abnormal rhythm Other: No murmur or rub. GI: Other: Abdomen soft, nondistended, nontender. Hypoactive bowel sounds in all quadrants. Urinary Catheter: Urinary Catheter: patent and draining Skin: General skin exam: normal color and no rashes or lesions noted Wounds: no wounds Neuro: Cranial nerves: Yes Equal, round and reactive pupils present Other: Intubated and sedated. Does not open eyes or follow commands. Does not withdraw from pain. GCS 3 upon arrival. Extrem: General: normal to inspection Psych: Other: Unable to assess. Objective Data Vital Signs Vital Signs: Vital Signs - 24 hr 01/11/25 08:15 01/11/25 08:18 01/11/25 08:35 Temperature Pulse Rate 102 H 102 H 99 Respiratory Rate 24 H 24 H Blood Pressure Pulse Oximetry 96 Oxygen Delivery Mechanical Ventilation Fraction of Inspired Oxygen 55 01/11/25 08:56 01/11/25 09:00 01/11/25 09:00 Temperature 98.2 F Pulse Rate 95 98 98 Respiratory Rate 24 H 24 H 24 H Blood Pressure 109/59 L Pulse Oximetry 95 Oxygen Delivery Fraction of Inspired Oxygen 01/11/25 09:41 01/11/25 10:00 01/11/25 10:00 Temperature 98.3 F Pulse Rate 99 106 H Respiratory Rate 26 H Blood Pressure 102/77 106/59 L Pulse Oximetry 98 Oxygen Delivery Fraction of Inspired Oxygen 50 01/11/25 10:00 01/11/25 10:00 01/11/25 10:00 Temperature Pulse Rate 106 H 106 H 111 H Respiratory Rate 26 H 26 H Blood Pressure Pulse Oximetry Oxygen Delivery Fraction of Inspired Oxygen 01/11/25 10:51 01/11/25 10:51 01/11/25 12:00 Temperature 98.3 F 98.3 F Pulse Rate 96 101 H 104 H Respiratory Rate 26 H 26 H Blood Pressure 102/77 98/72 L Pulse Oximetry 95 98 98 Oxygen Delivery Mechanical Ventilation Fraction of Inspired Oxygen 50 01/11/25 12:00 01/11/25 12:00 01/11/25 12:00 Temperature Pulse Rate 100 100 100 Respiratory Rate 26 H 26 H Blood Pressure 97/53 L Pulse Oximetry Oxygen Delivery Fraction of Inspired Oxygen 01/11/25 12:00 01/11/25 12:00 01/11/25 12:00 Temperature Pulse Rate 104 H Respiratory Rate Blood Pressure Pulse Oximetry 98 Oxygen Delivery Mechanical Ventilation Fraction of Inspired Oxygen 50 50 01/11/25 13:00 01/11/25 13:00 01/11/25 13:00 Temperature 98.5 F 98.5 F Pulse Rate 100 103 H 100 Respiratory Rate 26 H 26 H 26 H Blood Pressure 107/84 129/78 Pulse Oximetry 100 98 Oxygen Delivery Fraction of Inspired Oxygen 01/11/25 13:25 01/11/25 13:25 01/11/25 13:54 Temperature Pulse Rate 124 H 126 H 110 H Respiratory Rate 24 H 26 H Blood Pressure Pulse Oximetry 96 Oxygen Delivery Mechanical Ventilation Fraction of Inspired Oxygen 50 01/11/25 14:00 01/11/25 14:00 01/11/25 14:00 Temperature 98.5 F Pulse Rate 98 103 H 100 Respiratory Rate 26 H 26 H Blood Pressure 98/52 L 103/56 L Pulse Oximetry 98 Oxygen Delivery Fraction of Inspired Oxygen 01/11/25 14:00 01/11/25 16:00 01/11/25 16:00 Temperature 98.5 F Pulse Rate 101 H 95 106 H Respiratory Rate 26 H Blood Pressure 95/55 L 103/54 L Pulse Oximetry 99 Oxygen Delivery Fraction of Inspired Oxygen 01/11/25 16:00 01/11/25 16:00 01/11/25 16:00 Temperature Pulse Rate 96 96 Respiratory Rate 26 H 26 H Blood Pressure Pulse Oximetry 100 Oxygen Delivery Mechanical Ventilation Fraction of Inspired Oxygen 50 01/11/25 16:00 01/11/25 16:00 01/11/25 16:51 Temperature Pulse Rate 108 H 100 Respiratory Rate Blood Pressure 99/55 L Pulse Oximetry Oxygen Delivery Fraction of Inspired Oxygen 50 01/11/25 16:51 01/11/25 17:00 01/11/25 17:32 Temperature 98.4 F Pulse Rate 100 101 H 102 H Respiratory Rate 26 H Blood Pressure 99/55 L 100/58 L Pulse Oximetry 99 96 Oxygen Delivery Mechanical Ventilation Fraction of Inspired Oxygen 50 01/11/25 18:00 01/11/25 18:00 01/11/25 18:00 Temperature 98.5 F Pulse Rate 93 90 93 Respiratory Rate 26 H 26 H Blood Pressure 98/65 L Pulse Oximetry 100 Oxygen Delivery Fraction of Inspired Oxygen 01/11/25 18:00 01/11/25 18:00 01/11/25 19:00 Temperature 98.0 F Pulse Rate 89 95 89 Respiratory Rate 26 H 26 H Blood Pressure 98/65 L 108/60 Pulse Oximetry 100 Oxygen Delivery Fraction of Inspired Oxygen 01/11/25 20:00 01/11/25 20:00 01/11/25 20:00 Temperature 97.9 F Pulse Rate 89 91 Respiratory Rate 26 H Blood Pressure 116/67 Pulse Oximetry 99 Oxygen Delivery Fraction of Inspired Oxygen 50 01/11/25 20:00 01/11/25 20:00 01/11/25 20:00 Temperature Pulse Rate 126 H 126 H Respiratory Rate 24 H 24 H Blood Pressure Pulse Oximetry 100 Oxygen Delivery Mechanical Ventilation Fraction of Inspired Oxygen 50 01/11/25 20:16 01/11/25 20:59 01/11/25 22:00 Temperature 98.0 F 98.2 F Pulse Rate 94 109 H 92 Respiratory Rate 26 H 26 H Blood Pressure 103/54 L 110/58 L Pulse Oximetry 97 98 96 Oxygen Delivery Mechanical Ventilation Fraction of Inspired Oxygen 50 01/11/25 22:00 01/11/25 22:00 01/11/25 22:00 Temperature Pulse Rate 117 H 117 H 117 H Respiratory Rate 24 H 24 H Blood Pressure Pulse Oximetry Oxygen Delivery Fraction of Inspired Oxygen 01/11/25 23:00 01/11/25 23:15 01/11/25 23:15 Temperature 98.4 F Pulse Rate 87 96 96 Respiratory Rate 26 H 26 H 26 H Blood Pressure 111/58 L Pulse Oximetry 97 Oxygen Delivery Fraction of Inspired Oxygen 01/11/25 23:15 01/11/25 23:15 01/11/25 23:15 Temperature Pulse Rate 96 96 96 Respiratory Rate 26 H 26 H 26 H Blood Pressure Pulse Oximetry Oxygen Delivery Fraction of Inspired Oxygen 01/11/25 23:35 01/12/25 00:00 01/12/25 00:00 Temperature 98.4 F Pulse Rate 94 102 H Respiratory Rate 26 H Blood Pressure 132/72 Pulse Oximetry 97 96 Oxygen Delivery Mechanical Ventilation Fraction of Inspired Oxygen 50 50 01/12/25 00:00 01/12/25 00:00 01/12/25 00:00 Temperature Pulse Rate 88 128 H 128 H Respiratory Rate 24 H 24 H Blood Pressure Pulse Oximetry Oxygen Delivery Fraction of Inspired Oxygen 01/12/25 00:00 01/12/25 01:00 01/12/25 01:08 Temperature 98.4 F Pulse Rate 108 H 125 H Respiratory Rate 26 H 16 Blood Pressure 128/65 Pulse Oximetry 100 96 Oxygen Delivery Mechanical Ventilation Fraction of Inspired Oxygen 50 01/12/25 02:00 01/12/25 02:00 01/12/25 02:00 Temperature 98.5 F Pulse Rate 101 H 102 H 102 H Respiratory Rate 26 H 21 H Blood Pressure 108/55 L Pulse Oximetry 96 Oxygen Delivery Fraction of Inspired Oxygen 01/12/25 02:00 01/12/25 02:30 01/12/25 03:00 Temperature 98.2 F Pulse Rate 102 H 112 H 107 H Respiratory Rate 21 H 26 H Blood Pressure 126/63 Pulse Oximetry 96 96 Oxygen Delivery Mechanical Ventilation Fraction of Inspired Oxygen 50 01/12/25 04:00 01/12/25 04:00 01/12/25 04:00 Temperature Pulse Rate 99 100 100 Respiratory Rate 26 H 26 H Blood Pressure Pulse Oximetry Oxygen Delivery Fraction of Inspired Oxygen 01/12/25 04:00 01/12/25 04:00 01/12/25 04:00 Temperature 98.2 F Pulse Rate 94 Respiratory Rate 26 H Blood Pressure 131/67 Pulse Oximetry 100 100 Oxygen Delivery Mechanical Ventilation Fraction of Inspired Oxygen 50 50 01/12/25 04:48 01/12/25 04:48 01/12/25 05:00 Temperature 98.2 F Pulse Rate 104 H 104 H 92 Respiratory Rate 26 H Blood Pressure 136/72 136/72 122/65 Pulse Oximetry 97 Oxygen Delivery Fraction of Inspired Oxygen 01/12/25 05:11 01/12/25 06:00 01/12/25 06:00 Temperature 98.2 F Pulse Rate 102 H 98 106 H Respiratory Rate 26 H Blood Pressure 112/58 L Pulse Oximetry 98 98 Oxygen Delivery Mechanical Ventilation Fraction of Inspired Oxygen 50 01/12/25 06:00 01/12/25 06:01/12/25 07:00 Temperature 98.2 F Pulse Rate 106 H 106 H 100 Respiratory Rate 26 H 26 H 26 H Blood Pressure 103/56 L Pulse Oximetry 97 Oxygen Delivery Fraction of Inspired Oxygen Intake/Output Intake/Output: Intake & Output 01/09/25 01/10/25 01/11/25 01/12/25 23:59 23:59 23:59 23:59 Intake Total 1242.8 3612.6 2676.1 346.2 Output Total 525 750 800 800 Balance 717.8 2862.6 1876.1 -453.8 Meds/Results Medications: Active Medications Generic Name Dose Route Start Last Admin Trade Name Freq PRN Reason Stop Dose Admin Acetaminophen 650 mg 01/09/25 14:52 Acetaminophen 650 Mg Suppository RECTAL Q6H PRN Mild Pain (1-3) or Fever Acetylcysteine 200 mg 01/09/25 20:00 01/12/25 02:29 Acetylcysteine 20% Inhal Soln 800 Mg/4 Ml Vial INHALATION 200 mg Q6HRT JENNY Administration Albuterol/Ipratropium 3 ml 01/09/25 20:00 01/12/25 02:30 Ipratropium 0.5 Mg/Albuterol Sulfate 2.5 Mg Ampul.Neb 3 Ml INHALATION 3 ml Q6HRT JENNY Administration Dextrose 12.5 gm 01/10/25 00:27 Dextrose 50% 25 Gm/50 Ml Syringe IV PUSH PRN PRN Hypoglycemia Protocol Dornase Prateek 2.5 mg 01/09/25 20:00 01/11/25 20:17 Dornase Prateek Inh Soln 1 Mg/Ml 2.5 Ml Amp INHALATION 01/12/25 19:59 2.5 mg Q12HRT JENNY Administration Glucagon 1 mg 01/10/25 00:27 Glucagon For Inj 1 Mg Vial IM PRN PRN Hypoglycemia Protocol Glucose 15 gm 01/10/25 00:27 Glucose Oral Gel 15 Gm Of Glucse In 37.5 Gm Tube PO PRN PRN Hypoglycemia Protocol Heparin Sodium (Porcine) 7,000 units 01/09/25 18:05 01/10/25 23:53 Heparin Sodium 5,000 Units/Ml Vial IV PUSH 7,000 units PRN PRN Administration aPTT less than 55 seconds Heparin Sodium (Porcine) 3,500 units 01/09/25 18:05 01/10/25 08:58 Heparin Sodium 5,000 Units/Ml Vial IV PUSH 3,500 units PRN PRN Administration aPTT 55 - 70 seconds Doxycycline Hyclate 100 mg/ 100 mls @ 100 mls/hr 01/09/25 19:00 01/12/25 07:53 Sodium Chloride IVPB 01/14/25 18:59 100 mls/hr Q12H JENNY Administration Cefepime HCl 1 gm/ Sodium 50 mls @ 100 mls/hr 01/10/25 06:00 01/12/25 06:05 Chloride IVPB 100 mls/hr Q12H JENNY Administration Heparin Sodium/Dextrose 25,000 units in 250 mls @ 15 mls/hr 01/09/25 18:05 01/11/25 19:30 Heparin Sodium/D5w 100 Units/Ml IV CONT 1,500 units/hr .[id number] JENNY 15 mls/hr Titration Protocol 1,500 UNITS/HR Dextrose 1,000 mls @ 100 mls/hr 01/10/25 00:27 Dextrose 5% 1,000 Ml IVPB PRN PRN Hypoglycemia Protocol Norepinephrine Bitartrate 8 mg in 250 mls @ 0 mls/hr 01/10/25 14:20 01/11/25 06:35 Levophed 8 Mg/D5w 250 Ml IV CONT 0 mcg/min .Q0M JENNY 0 mls/hr Titration Protocol Midazolam HCl 100 mg in 100 mls @ 4 mls/hr 01/10/25 18:40 01/12/25 06:00 Versed 100 Mg/Ns 100 Ml IV CONT 5 mg/hr .Q25H JENNY 5 mls/hr Titration Protocol 4 MG/HR Fentanyl Citrate 2,500 mcg in 250 mls @ 12.5 mls/hr 01/11/25 00:05 01/12/25 06:00 Fentanyl 2,500 Mcg/Ns 250 Ml IV CONT 125 mcg/hr .Q20H JENNY 12.5 mls/hr Titration Protocol 125 MCG/HR Amiodarone HCl/Dextrose 360 mg in 200 mls @ 16.667 mls/hr 01/11/25 07:00 01/12/25 04:48 Nexterone 360 Mg/D5w 200 Ml IV CONT 0.5 mg/min .Q12H JENNY 16.67 mls/hr Administration 0.5 MG/MIN Insulin Aspart 3 - 6 units 01/10/25 06:00 01/12/25 06:24 Insulin Aspart (*Bkc) 100 Units/Ml SUB-Q Not Given Q6HR JENNY Protocol Methylprednisolone Sodium Succinate 40 mg 01/11/25 18:00 01/12/25 06:05 Methylprednisolone Sod Succ 40 Mg Vial IV PUSH 40 mg Q12H JENNY Administration Pantoprazole Sodium 40 mg 01/09/25 21:00 01/11/25 23:52 Pantoprazole Sodium Iv 40 Mg Vial IV PUSH 40 mg Q12HR JENNY Administration Perflutren Lipid Microsphere 0 ml 01/09/25 18:26 Perflutren Lipid Microspheres 1.5 Ml Vial Diluted To 10 Ml Total Volume IV PUSH 01/12/25 18:26 ONCE PRN adequate visualization Protocol Fluticasone/Salmeterol 2 puff 01/09/25 20:00 01/11/25 08:11 Fluticasone/Salmeterol 115-21 Mcg Inhaler 1 Puff INHALATION Not Given Q12HRT JENNY Sodium Chloride 10 ml 01/09/25 22:00 01/12/25 06:12 Central Line Flush IV PUSH 10 ml Q8HR JENNY Administration Sodium Chloride 20 ml 01/09/25 17:08 Central Line Flush IV PUSH PRN PRN after blood draws Sodium Chloride 10 ml 01/09/25 22:00 01/12/25 06:12 Central Line Flush IV PUSH 10 ml Q8HR JENNY Administration Sodium Chloride 20 ml 01/09/25 17:34 01/11/25 05:29 Central Line Flush IV PUSH 20 ml PRN PRN Administration after blood draws Vancomycin HCl 1 each 01/09/25 13:55 Vancomycin For Acute Kidney Injury IVPB PRN PRN Vancomycin Protocol Radiology Results: ITS Impressions Abdomen X-Ray 01/09/25 13:38 IMPRESSION: 1: NG tube tip in the stomach. Chest/Abdomen/Pelvis CTA 01/09/25 13:59 IMPRESSION: 1. Extensive airspace disease of the right upper and lower lobe, consistent with pneumonia. 2: Bilateral pleural effusions, right greater than left. 3: Hypodense right renal masses. Cannot exclude renal cell carcinoma. Consider correlation with MRI abdomen with contrast. 4: Small pericardial effusion. Head CT 01/09/25 14:00 IMPRESSION: 1. No acute intracranial hemorrhage. No mass effect. 2. Probable chronic ischemic white matter change. Renal Ultrasound 01/09/25 19:35 IMPRESSION: No hydronephrosis or renal calculi. Indeterminate focus within the interpolar region of the right kidney, for which contrast enhanced CT or MRI (with renal mass protocol) is suggested for further evaluation. Abdomen Ultrasound 01/09/25 19:44 IMPRESSION: Limited evaluation of the pancreas secondary to overlying bowel gas Hepatomegaly with additional findings of portal hypertension, as detailed above. Chest X-Ray 01/12/25 07:17 IMPRESSION: 1. Endotracheal tube tip 7.3 cm above the nadya. Consider advancement by 5 cm. 2. Persistent small right pleural effusion with right basilar atelectasis and/or pneumonia. Labs Labs: Laboratory Results - last 24 hr 01/09/25 01/11/25 01/11/25 18:39 12:17 12:25 WBC RBC Hgb Hct MCV MCH MCHC RDW Plt Count MPV Immature Gran % (Auto) Neut % (Auto) Lymph % (Auto) Motley % (Auto) Eos % (Auto) Baso % (Auto) Lymph # (Auto) Motley # (Auto) Eos # (Auto) Baso # (Auto) Abs Immat Gran (auto) Absolute Neuts (auto) Absolute Nucleated RBC Nucleated RBC % PT INR APTT 75.0 H Puncture Site ABG pH ABG pCO2 ABG pO2 ABG PO2/FiO2 Ratio ABG HCO3 ABG O2 Saturation ABG O2 Content ABG Base Excess A-a Gradient Oxyhemoglobin Carboxyhemoglobin Methemoglobin Reduced Hemoglobin Total Hemoglobin O2 Delivery Device O2 Liters/Min Minute Volume Vent Rate Vent Mode FiO2 Tidal Volume PEEP Peak Inspir Pressure Pressure Support Sodium Potassium Chloride Carbon Dioxide Anion Gap BUN Creatinine Estim Creat Clear Calc Estimated GFR Glucose POC Capillary Glucose 151 H Lactic Acid Calcium Phosphorus Magnesium Total Bilirubin AST ALT Alkaline Phosphatase C-Reactive Protein Total Protein Albumin Random Vancomycin Urine Pneumococcal Ag Cancelled 01/11/25 01/11/25 01/11/25 16:48 16:55 18:22 WBC RBC Hgb Hct MCV MCH MCHC RDW Plt Count MPV Immature Gran % (Auto) Neut % (Auto) Lymph % (Auto) Motley % (Auto) Eos % (Auto) Baso % (Auto) Lymph # (Auto) Motley # (Auto) Eos # (Auto) Baso # (Auto) Abs Immat Gran (auto) Absolute Neuts (auto) Absolute Nucleated RBC Nucleated RBC % PT INR APTT 76.0 H Puncture Site ABG pH ABG pCO2 ABG pO2 ABG PO2/FiO2 Ratio ABG HCO3 ABG O2 Saturation ABG O2 Content ABG Base Excess A-a Gradient Oxyhemoglobin Carboxyhemoglobin Methemoglobin Reduced Hemoglobin Total Hemoglobin O2 Delivery Device O2 Liters/Min Minute Volume Vent Rate Vent Mode FiO2 Tidal Volume PEEP Peak Inspir Pressure Pressure Support Sodium Potassium Chloride Carbon Dioxide Anion Gap BUN Creatinine Estim Creat Clear Calc Estimated GFR Glucose POC Capillary Glucose 133 H Lactic Acid Calcium Phosphorus Magnesium Total Bilirubin AST ALT Alkaline Phosphatase C-Reactive Protein Total Protein Albumin Random Vancomycin 15.1 Urine Pneumococcal Ag 01/12/25 01/12/25 01/12/25 00:51 05:10 05:42 WBC 10.6 H RBC 4.20 L Hgb 12.4 L Hct 41.1 L MCV 97.9 MCH 29.5 MCHC 30.2 L RDW 17.1 H Plt Count 133 L MPV 11.7 H Immature Gran % (Auto) 0.8 H Neut % (Auto) 91.3 H Lymph % (Auto) 2.7 L Motley % (Auto) 5.1 Eos % (Auto) 0.0 Baso % (Auto) 0.1 L Lymph # (Auto) 0.29 L Motley # (Auto) 0.5 Eos # (Auto) 0.0 Baso # (Auto) 0.0 Abs Immat Gran (auto) 0.08 H Absolute Neuts (auto) 9.6 H Absolute Nucleated RBC 0.070 H Nucleated RBC % 0.7 H PT 14.7 INR 1.1 APTT 77.6 H Puncture Site Artline ABG pH 7.361 ABG pCO2 44.5 ABG pO2 104.4 H ABG PO2/FiO2 Ratio 2.09 ABG HCO3 24.6 ABG O2 Saturation 97.6 ABG O2 Content 17.6 ABG Base Excess -1.0 A-a Gradient 202.0 Oxyhemoglobin 97.1 Carboxyhemoglobin 0.5 Methemoglobin 0.2 Reduced Hemoglobin 2.2 Total Hemoglobin 12.8 O2 Delivery Device Ventilator O2 Liters/Min Not Reportable Minute Volume Not Reportable Vent Rate 26 Vent Mode Cmv FiO2 50 Tidal Volume 500 PEEP 12 Peak Inspir Pressure Not Reportable Pressure Support Not Reportable Sodium 140 Potassium 4.3 Chloride 108 H Carbon Dioxide 25 Anion Gap 7 BUN 103 H* Creatinine 2.59 H Estim Creat Clear Calc 33 Estimated GFR 25 L Glucose 141 H POC Capillary Glucose 146 H Lactic Acid 1.0 Calcium 8.1 L Phosphorus 4.2 Magnesium 2.8 H Total Bilirubin 0.3 AST 212 H ALT 525 H Alkaline Phosphatase 73 C-Reactive Protein 5.4 H Total Protein 5.2 L Albumin 2.8 L Random Vancomycin Urine Pneumococcal Ag Quality VTE Prophylaxis VTE prophylaxis: pharmacologic ordered Hospitalist MIPS Advance Care Plan I have confirmed that the patient's Advanced Care Plan is present, code status is documented, or surrogate decision maker is listed in patient medical record.: Yes Medication Reconciliation I have utilized all available resources to obtain, update and review the patients current medications (includes all prescriptions, OTC, herbals, cannabis, and nutritional supplements).: Yes
[2025-01-12] MEDS: DORNASE ALFA INH SOLN 1 MG/ML 2.5 ML AMP 2.5 MG INHALATION (08:25)
[2025-01-12] MEDS: PANTOPRAZOLE SODIUM IV 40 MG VIAL IV PUSH ×2 (09:40→20:11)
[2025-01-12] MEDS: HEPARIN SOD/D5W 100 UNITS/ML 25,000 UNITS/250 ML BAG 15 UNITS IV CONT (09:42)
[2025-01-12] MEDS: NOREPINEPHRINE 8 MG/D5W 250 ML 8 MG/250 ML BAG 9.38 MG IV CONT (11:01)
[2025-01-12] MEDS: PROPOFOL IV EMULSION 100 ML 3.25 MG IV CONT (11:02)
--- NOTE | 2025-01-12 11:05 | P.PNNP_ITS ---
Progress Note: A&P Assessment and Plan (1) Acute kidney injury: Code(s): N17.9 - Acute kidney failure, unspecified Status: Acute Assessment and Plan: * DERECK on top of normal kidney function * as noted on admission * normal creatinine on hospital discharge in June 2024 * suspect ATN with multifactorial etiology: * infection/sepsis * hemodynamic instability/shock * prerenal factors * ARB + diuretic use prior to admission * polysubstance abuse * other (?) * contrast exposure (CTA C/A/P on 01/09) may hamper/delay recovery * evaluation to date noted: * urine electrolytes pre-renal * CT of abdomen with hypodense right renal masses * renal u/s with no hydronephrosis or renal calculi; indeterminate focus within the interpolar region of the right kidney * urine eosinophils negative * UA without evidence of infection * CPK normal * He is currently getting obligatory medication fluids and tube feedings at 40 an hour adding up to about 80 per hour. * He is on a tiny bit of Levophed. * Blood pressure is doing well. * Urine output 800 he all day yesterday and 800 just overnight. * Will continue current therapy. * I do not think he needs any more IV fluids since his creatinine is improving. (2) Septic shock: Code(s): A41.9 - Sepsis, unspecified organism; R65.21 - Severe sepsis with septic shock Status: Acute Assessment and Plan: * as noted on presetation with hypotension, acute respiratory failure, lactic acidosis, tachycardia, and DERECK * presumably secondary to pneumonia * s/p 2 L IV fluid bolus and on maintenance IV fluid * lactic acid has normalized * weaned off Levophed * Lots of cultures pending * on cefepime, vancomycin, and doxycycline. * No fevers and white cell count gradually improving (3) Acute hypoxic respiratory failure: Code(s): J96.01 - Acute respiratory failure with hypoxia Status: Acute Assessment and Plan: * as noted on presentation to the ER * intubated in ER on admission (due to hypoxia and agonal breathing) * complicated by mucus plugging of right main stem bronchus requiring bronchoscopy with suctioning of secretions * CT imaging noted * no evidence of pulmonary embolism, extensive right upper lobe and lower lobe airspace disease consistent with pneumonia; ilateral pleural effusion, right greater than left * Echo noted: * normal left ventricular size with overall good systolic function, paradoxical septal motion consistent with bundle branch block * EF 55-60% * right ventricular enlargement with systolic dysfunction * mild tricuspid regurgitation, estimated RV systolic pressure 51 mmHg * sclerotic aortic valve which exhibits preserved leaflet excursion * on ventilator support. Minute volume not too bad at 12. On 50% FiO2 * chest physiotherapy * on nebulizer therapy, mucomyst, and pulmozyme * further complicated by known history of COPD (4) Pneumonia: Qualifiers: Laterality: right Lung location: unspecified part of lung Pneumonia type: due to unspecified organism Qualified Code(s): J18.9 - Pneumonia, unspecified organism Code(s): J18.9 - Pneumonia, unspecified organism Status: Acute Assessment and Plan: * as suggested by imaging to date * COVID, RSV and influenza testing negative * continue antibiotics * follow respiratory status (5) Acute exacerbation of chronic obstructive pulmonary disease: Code(s): J44.1 - Chronic obstructive pulmonary disease with (acute) exacerbation Status: Acute Assessment and Plan: * known history of is COPD with emphysema seen on CT scan of the chest * likely precipitated by pneumonia * on bronchodilator therapy (6) Atrial fibrillation: Qualifiers: Atrial fibrillation type: unspecified Qualified Code(s): I48.91 - Unspecified atrial fibrillation Code(s): I48.91 - Unspecified atrial fibrillation Status: Acute Assessment and Plan: * rate control strategy * on heparin gtt for anticoagulation (7) Transaminitis: Code(s): R74.01 - Elevation of levels of liver transaminase levels Status: Acute Assessment and Plan: * Numbers up and down a bit. * significantly elevated LFTs on admission * due to hypotension/shock and hypotension on presentation (?) * RUQ ultrasound shows hepatomegaly with additional findings of portal hypertension * hepatitis panel was negative * follow trend (8) Polysubstance use disorder: Code(s): F19.90 - Other psychoactive substance use, unspecified, uncomplicated Status: Acute Assessment and Plan: * urine tox screen was positive for cannabis and cocaine Will continue to follow. Subjective Date/time seen: 01/12/25 11:05 Interval history: Patient on ventilator. Looks comfortable but he is sedated. Exam Narrative: General: ill appearing male intubated/sedated and on mechanical ventilation Heart: Regular rhythm today, normal S1 and S2; no rub Lungs: coarse and distant breath sounds; decreased at bases Abdomen: soft, nontender, nondistended, decreased bowel sounds Extremities: no cyanosis or clubbing; no edema Skin: No rash Objective Data Vital Signs Vital Signs: Vital Signs - 24 hr 01/11/25 12:00 01/11/25 12:00 01/11/25 12:00 Temperature 98.3 F Pulse Rate 104 H 100 100 Respiratory Rate 26 H 26 H Blood Pressure 98/72 L 97/53 L Pulse Oximetry 98 Oxygen Delivery Fraction of Inspired Oxygen 01/11/25 12:00 01/11/25 12:00 01/11/25 12:00 Temperature Pulse Rate 100 Respiratory Rate 26 H Blood Pressure Pulse Oximetry 98 Oxygen Delivery Mechanical Ventilation Fraction of Inspired Oxygen 50 50 01/11/25 12:00 01/11/25 13:00 01/11/25 13:00 Temperature 98.5 F 98.5 F Pulse Rate 104 H 100 103 H Respiratory Rate 26 H 26 H Blood Pressure 107/84 129/78 Pulse Oximetry 100 98 Oxygen Delivery Fraction of Inspired Oxygen 01/11/25 13:00 01/11/25 13:25 01/11/25 13:25 Temperature Pulse Rate 100 124 H 126 H Respiratory Rate 26 H 24 H Blood Pressure Pulse Oximetry 96 Oxygen Delivery Mechanical Ventilation Fraction of Inspired Oxygen 50 01/11/25 13:54 01/11/25 14:00 01/11/25 14:00 Temperature 98.5 F Pulse Rate 110 H 98 103 H Respiratory Rate 26 H 26 H Blood Pressure 98/52 L 103/56 L Pulse Oximetry 98 Oxygen Delivery Fraction of Inspired Oxygen 01/11/25 14:00 01/11/25 14:00 01/11/25 16:00 Temperature 98.5 F Pulse Rate 100 101 H 95 Respiratory Rate 26 H 26 H Blood Pressure 95/55 L Pulse Oximetry 99 Oxygen Delivery Fraction of Inspired Oxygen 01/11/25 16:00 01/11/25 16:00 01/11/25 16:00 Temperature Pulse Rate 106 H 96 96 Respiratory Rate 26 H 26 H Blood Pressure 103/54 L Pulse Oximetry Oxygen Delivery Fraction of Inspired Oxygen 01/11/25 16:00 01/11/25 16:00 01/11/25 16:00 Temperature Pulse Rate 108 H Respiratory Rate Blood Pressure Pulse Oximetry 100 Oxygen Delivery Mechanical Ventilation Fraction of Inspired Oxygen 50 50 01/11/25 16:51 01/11/25 16:51 01/11/25 17:00 Temperature 98.4 F Pulse Rate 100 100 101 H Respiratory Rate 26 H Blood Pressure 99/55 L 99/55 L 100/58 L Pulse Oximetry 99 Oxygen Delivery Fraction of Inspired Oxygen 01/11/25 17:32 01/11/25 18:00 01/11/25 18:00 Temperature 98.5 F Pulse Rate 102 H 93 90 Respiratory Rate 26 H Blood Pressure 98/65 L Pulse Oximetry 96 100 Oxygen Delivery Mechanical Ventilation Fraction of Inspired Oxygen 50 01/11/25 18:00 01/11/25 18:00 01/11/25 18:00 Temperature Pulse Rate 93 89 95 Respiratory Rate 26 H 26 H Blood Pressure 98/65 L Pulse Oximetry Oxygen Delivery Fraction of Inspired Oxygen 01/11/25 19:00 01/11/25 20:00 01/11/25 20:00 Temperature 98.0 F 97.9 F Pulse Rate 89 89 Respiratory Rate 26 H 26 H Blood Pressure 108/60 116/67 Pulse Oximetry 100 99 Oxygen Delivery Fraction of Inspired Oxygen 50 01/11/25 20:00 01/11/25 20:00 01/11/25 20:00 Temperature Pulse Rate 91 126 H 126 H Respiratory Rate 24 H 24 H Blood Pressure Pulse Oximetry Oxygen Delivery Fraction of Inspired Oxygen 01/11/25 20:00 01/11/25 20:16 01/11/25 20:59 Temperature 98.0 F Pulse Rate 94 109 H Respiratory Rate 26 H Blood Pressure 103/54 L Pulse Oximetry 100 97 98 Oxygen Delivery Mechanical Ventilation Mechanical Ventilation Fraction of Inspired Oxygen 50 50 01/11/25 22:00 01/11/25 22:00 01/11/25 22:00 Temperature 98.2 F Pulse Rate 92 117 H 117 H Respiratory Rate 26 H 24 H Blood Pressure 110/58 L Pulse Oximetry 96 Oxygen Delivery Fraction of Inspired Oxygen 01/11/25 22:00 01/11/25 23:00 01/11/25 23:15 Temperature 98.4 F Pulse Rate 117 H 87 96 Respiratory Rate 24 H 26 H 26 H Blood Pressure 111/58 L Pulse Oximetry 97 Oxygen Delivery Fraction of Inspired Oxygen 01/11/25 23:15 01/11/25 23:15 01/11/25 23:15 Temperature Pulse Rate 96 96 96 Respiratory Rate 26 H 26 H 26 H Blood Pressure Pulse Oximetry Oxygen Delivery Fraction of Inspired Oxygen 01/11/25 23:15 01/11/25 23:35 01/12/25 00:00 Temperature 98.4 F Pulse Rate 96 94 102 H Respiratory Rate 26 H 26 H Blood Pressure 132/72 Pulse Oximetry 97 96 Oxygen Delivery Mechanical Ventilation Fraction of Inspired Oxygen 50 01/12/25 00:00 01/12/25 00:00 01/12/25 00:00 Temperature Pulse Rate 88 128 H Respiratory Rate 24 H Blood Pressure Pulse Oximetry Oxygen Delivery Fraction of Inspired Oxygen 50 01/12/25 00:00 01/12/25 00:00 01/12/25 01:00 Temperature 98.4 F Pulse Rate 128 H 108 H Respiratory Rate 24 H 26 H Blood Pressure 128/65 Pulse Oximetry 100 96 Oxygen Delivery Mechanical Ventilation Fraction of Inspired Oxygen 50 01/12/25 01:08 01/12/25 02:00 01/12/25 02:00 Temperature 98.5 F Pulse Rate 125 H 101 H 102 H Respiratory Rate 16 26 H Blood Pressure 108/55 L Pulse Oximetry 96 Oxygen Delivery Fraction of Inspired Oxygen 01/12/25 02:00 01/12/25 02:00 01/12/25 02:30 Temperature Pulse Rate 102 H 102 H 112 H Respiratory Rate 21 H 21 H Blood Pressure Pulse Oximetry 96 Oxygen Delivery Mechanical Ventilation Fraction of Inspired Oxygen 50 01/12/25 03:00 01/12/25 04:00 01/12/25 04:00 Temperature 98.2 F Pulse Rate 107 H 99 100 Respiratory Rate 26 H 26 H Blood Pressure 126/63 Pulse Oximetry 96 Oxygen Delivery Fraction of Inspired Oxygen 01/12/25 04:00 01/12/25 04:00 01/12/25 04:00 Temperature Pulse Rate 100 Respiratory Rate 26 H Blood Pressure Pulse Oximetry 100 Oxygen Delivery Mechanical Ventilation Fraction of Inspired Oxygen 50 50 01/12/25 04:00 01/12/25 04:48 01/12/25 04:48 Temperature 98.2 F Pulse Rate 94 104 H 104 H Respiratory Rate 26 H Blood Pressure 131/67 136/72 136/72 Pulse Oximetry 100 Oxygen Delivery Fraction of Inspired Oxygen 01/12/25 05:00 01/12/25 05:11 01/12/25 06:00 Temperature 98.2 F 98.2 F Pulse Rate 92 102 H 98 Respiratory Rate 26 H 26 H Blood Pressure 122/65 112/58 L Pulse Oximetry 97 98 98 Oxygen Delivery Mechanical Ventilation Fraction of Inspired Oxygen 50 01/12/25 06:00 01/12/25 06:00 01/12/25 06:00 Temperature Pulse Rate 106 H 106 H 106 H Respiratory Rate 26 H 26 H Blood Pressure Pulse Oximetry Oxygen Delivery Fraction of Inspired Oxygen 01/12/25 07:00 01/12/25 08:00 01/12/25 08:00 Temperature 98.2 F 98.2 F Pulse Rate 100 97 Respiratory Rate 26 H 23 H Blood Pressure 103/56 L 126/66 Pulse Oximetry 97 98 Oxygen Delivery Fraction of Inspired Oxygen 50 01/12/25 08:00 01/12/25 08:00 01/12/25 08:00 Temperature Pulse Rate 97 97 97 Respiratory Rate 26 H 26 H Blood Pressure 118/82 Pulse Oximetry Oxygen Delivery Fraction of Inspired Oxygen 01/12/25 08:28 01/12/25 08:38 01/12/25 08:47 Temperature Pulse Rate 105 H 103 H 108 H Respiratory Rate 26 H 28 H Blood Pressure Pulse Oximetry 97 Oxygen Delivery Mechanical Ventilation Fraction of Inspired Oxygen 50 01/12/25 09:00 01/12/25 10:00 01/12/25 10:00 Temperature 98.4 F 98.5 F Pulse Rate 100 104 H 104 H Respiratory Rate 26 H 26 H 26 H Blood Pressure 114/62 110/56 L Pulse Oximetry 97 99 Oxygen Delivery Fraction of Inspired Oxygen 01/12/25 10:00 01/12/25 10:10 01/12/25 11:00 Temperature Pulse Rate 104 H 97 Respiratory Rate 26 H 26 H Blood Pressure Pulse Oximetry Oxygen Delivery Mechanical Ventilation Fraction of Inspired Oxygen 01/12/25 11:01 01/12/25 11:02 Temperature Pulse Rate 89 98 Respiratory Rate 26 H Blood Pressure 84/49 L Pulse Oximetry Oxygen Delivery Fraction of Inspired Oxygen Intake/Output Intake/Output: Intake & Output 01/09/25 01/10/25 01/11/25 01/12/25 23:59 23:59 23:59 23:59 Intake Total 1242.8 3612.6 2676.1 785.5 Output Total 525 750 800 800 Balance 717.8 2862.6 1876.1 -14.5 Meds/Results Medications: Active Medications Generic Name Dose Route Start Last Admin Trade Name Freq PRN Reason Stop Dose Admin Acetaminophen 650 mg 01/09/25 14:52 Acetaminophen 650 Mg Suppository RECTAL Q6H PRN Mild Pain (1-3) or Fever Acetylcysteine 200 mg 01/09/25 20:00 01/12/25 08:25 Acetylcysteine 20% Inhal Soln 800 Mg/4 Ml Vial INHALATION 200 mg Q6HRT JENNY Administration Albuterol/Ipratropium 3 ml 01/09/25 20:00 01/12/25 08:26 Ipratropium 0.5 Mg/Albuterol Sulfate 2.5 Mg Ampul.Neb 3 Ml INHALATION 3 ml Q6HRT JENNY Administration Dextrose 12.5 gm 01/10/25 00:27 Dextrose 50% 25 Gm/50 Ml Syringe IV PUSH PRN PRN Hypoglycemia Protocol Dornase Prateek 2.5 mg 01/09/25 20:00 01/12/25 08:25 Dornase Prateek Inh Soln 1 Mg/Ml 2.5 Ml Amp INHALATION 01/12/25 19:59 2.5 mg Q12HRT JENNY Administration Glucagon 1 mg 01/10/25 00:27 Glucagon For Inj 1 Mg Vial IM PRN PRN Hypoglycemia Protocol Glucose 15 gm 01/10/25 00:27 Glucose Oral Gel 15 Gm Of Glucse In 37.5 Gm Tube PO PRN PRN Hypoglycemia Protocol Heparin Sodium (Porcine) 7,000 units 01/09/25 18:05 01/10/25 23:53 Heparin Sodium 5,000 Units/Ml Vial IV PUSH 7,000 units PRN PRN Administration aPTT less than 55 seconds Heparin Sodium (Porcine) 3,500 units 01/09/25 18:05 01/10/25 08:58 Heparin Sodium 5,000 Units/Ml Vial IV PUSH 3,500 units PRN PRN Administration aPTT 55 - 70 seconds Doxycycline Hyclate 100 mg/ 100 mls @ 100 mls/hr 01/09/25 19:00 01/12/25 08:53 Sodium Chloride IVPB 01/14/25 18:59 Infused Q12H JENNY Infusion Cefepime HCl 1 gm/ Sodium 50 mls @ 100 mls/hr 01/10/25 06:00 01/12/25 06:05 Chloride IVPB 100 mls/hr Q12H JENNY Administration Heparin Sodium/Dextrose 25,000 units in 250 mls @ 15 mls/hr 01/09/25 18:05 01/12/25 09:42 Heparin Sodium/D5w 100 Units/Ml IV CONT 1,500 units/hr .[id number] JENNY 15 mls/hr Administration Protocol 1,500 UNITS/HR Dextrose 1,000 mls @ 100 mls/hr 01/10/25 00:27 Dextrose 5% 1,000 Ml IVPB PRN PRN Hypoglycemia Protocol Midazolam HCl 100 mg in 100 mls @ 4 mls/hr 01/10/25 18:40 01/12/25 11:00 Versed 100 Mg/Ns 100 Ml IV CONT 2 mg/hr .Q25H JENNY 2 mls/hr Titration Protocol 4 MG/HR Fentanyl Citrate 2,500 mcg in 250 mls @ 12.5 mls/hr 01/11/25 00:05 01/12/25 10:00 Fentanyl 2,500 Mcg/Ns 250 Ml IV CONT 100 mcg/hr .Q20H JENNY 10 mls/hr Titration Protocol 125 MCG/HR Amiodarone HCl/Dextrose 360 mg in 200 mls @ 16.667 mls/hr 01/11/25 07:00 01/12/25 08:00 Nexterone 360 Mg/D5w 200 Ml IV CONT 0.5 mg/min .Q12H JENNY 16.67 mls/hr Infusion 0.5 MG/MIN Norepinephrine Bitartrate 8 mg in 250 mls @ 9.375 mls/hr 01/12/25 10:55 01/12/25 11:01 Levophed 8 Mg/D5w 250 Ml IV CONT 5 mcg/min .Q24H JENNY 9.38 mls/hr Administration Protocol 5 MCG/MIN Propofol 100 mls @ 3.246 mls/hr 01/12/25 10:55 01/12/25 11:02 Diprivan IV CONT 5 mcg/kg/min .[id number] JENNY 3.25 mls/hr Administration Protocol 5 MCG/KG/MIN Insulin Aspart 3 - 6 units 01/10/25 06:00 08/16/25 06:24 Insulin Aspart (*Bkc) 100 Units/Ml SUB-Q Not Given Q6HR JENNY Protocol Methylprednisolone Sodium Succinate 40 mg 01/11/25 18:00 01/12/25 06:05 Methylprednisolone Sod Succ 40 Mg Vial IV PUSH 40 mg Q12H JENNY Administration Multi-Ingred Cream/Lotion/Oil/Oint 1 applic 01/12/25 21:00 Mineral Oil/White Petrolatum Ointment EACH EYE Q12HR JENNY Pantoprazole Sodium 40 mg 01/09/25 21:00 01/12/25 09:40 Pantoprazole Sodium Iv 40 Mg Vial IV PUSH 40 mg Q12HR JENNY Administration Perflutren Lipid Microsphere 0 ml 01/09/25 18:26 Perflutren Lipid Microspheres 1.5 Ml Vial Diluted To 10 Ml Total Volume IV PUSH 01/12/25 18:26 ONCE PRN adequate visualization Protocol Polyethylene Glycol 17 gm 01/12/25 10:42 Polyethylene Glycol 3350 17 Gm Powd.Pack PO QAM PRN Constipation Fluticasone/Salmeterol 2 puff 01/09/25 20:00 01/12/25 08:26 Fluticasone/Salmeterol 115-21 Mcg Inhaler 1 Puff INHALATION Not Given Q12HRT JENNY Senna/Docusate Sodium 1 tab 01/12/25 21:00 Senna/Docusate Sodium Tablet PO HS JENNY Sodium Chloride 10 ml 01/09/25 22:00 01/12/25 06:12 Central Line Flush IV PUSH 10 ml Q8HR JENNY Administration Sodium Chloride 20 ml 01/09/25 17:08 Central Line Flush IV PUSH PRN PRN after blood draws Sodium Chloride 10 ml 01/09/25 22:00 01/12/25 06:12 Central Line Flush IV PUSH 10 ml Q8HR JENNY Administration Sodium Chloride 20 ml 01/09/25 17:34 01/11/25 05:29 Central Line Flush IV PUSH 20 ml PRN PRN Administration after blood draws Vancomycin HCl 1 each 01/09/25 13:55 Vancomycin For Acute Kidney Injury IVPB PRN PRN Vancomycin Protocol Radiology Results: ITS Impressions Abdomen X-Ray 01/09/25 13:38 IMPRESSION: 1: NG tube tip in the stomach. Chest/Abdomen/Pelvis CTA 01/09/25 13:59 IMPRESSION: 1. Extensive airspace disease of the right upper and lower lobe, consistent with pneumonia. 2: Bilateral pleural effusions, right greater than left. 3: Hypodense right renal masses. Cannot exclude renal cell carcinoma. Consider correlation with MRI abdomen with contrast. 4: Small pericardial effusion. Head CT 01/09/25 14:00 IMPRESSION: 1. No acute intracranial hemorrhage. No mass effect. 2. Probable chronic ischemic white matter change. Renal Ultrasound 01/09/25 19:35 IMPRESSION: No hydronephrosis or renal calculi. Indeterminate focus within the interpolar region of the right kidney, for which contrast enhanced CT or MRI (with renal mass protocol) is suggested for further evaluation. Abdomen Ultrasound 01/09/25 19:44 IMPRESSION: Limited evaluation of the pancreas secondary to overlying bowel gas Hepatomegaly with additional findings of portal hypertension, as detailed above. Chest X-Ray 01/12/25 07:17 IMPRESSION: 1. Endotracheal tube tip 7.3 cm above the nadya. Consider advancement by 5 cm. 2. Persistent small right pleural effusion with right basilar atelectasis and/or pneumonia. Labs Labs: Laboratory Results - last 24 hr 01/11/25 01/11/25 01/11/25 12:17 12:25 16:48 WBC RBC Hgb Hct MCV MCH MCHC RDW Plt Count MPV Immature Gran % (Auto) Neut % (Auto) Lymph % (Auto) [place] % (Auto) Eos % (Auto) Baso % (Auto) Lymph # (Auto) [place] # (Auto) Eos # (Auto) Baso # (Auto) Abs Immat Gran (auto) Absolute Neuts (auto) Absolute Nucleated RBC Nucleated RBC % PT INR APTT 75.0 H Puncture Site ABG pH ABG pCO2 ABG pO2 ABG PO2/FiO2 Ratio ABG HCO3 ABG O2 Saturation ABG O2 Content ABG Base Excess A-a Gradient Oxyhemoglobin Carboxyhemoglobin Methemoglobin Reduced Hemoglobin Total Hemoglobin O2 Delivery Device O2 Liters/Min Minute Volume Vent Rate Vent Mode FiO2 Tidal Volume PEEP Peak Inspir Pressure Pressure Support Sodium Potassium Chloride Carbon Dioxide Anion Gap BUN Creatinine Estim Creat Clear Calc Estimated GFR Glucose POC Capillary Glucose 151 H 133 H Lactic Acid Calcium Phosphorus Magnesium Total Bilirubin AST ALT Alkaline Phosphatase C-Reactive Protein Total Protein Albumin Random Vancomycin 01/11/25 01/11/25 01/12/25 16:55 18:22 00:51 WBC RBC Hgb Hct MCV MCH MCHC RDW Plt Count MPV Immature Gran % (Auto) Neut % (Auto) Lymph % (Auto) [place] % (Auto) Eos % (Auto) Baso % (Auto) Lymph # (Auto) [place] # (Auto) Eos # (Auto) Baso # (Auto) Abs Immat Gran (auto) Absolute Neuts (auto) Absolute Nucleated RBC Nucleated RBC % PT INR APTT 76.0 H Puncture Site ABG pH ABG pCO2 ABG pO2 ABG PO2/FiO2 Ratio ABG HCO3 ABG O2 Saturation ABG O2 Content ABG Base Excess A-a Gradient Oxyhemoglobin Carboxyhemoglobin Methemoglobin Reduced Hemoglobin Total Hemoglobin O2 Delivery Device O2 Liters/Min Minute Volume Vent Rate Vent Mode FiO2 Tidal Volume PEEP Peak Inspir Pressure Pressure Support Sodium Potassium Chloride Carbon Dioxide Anion Gap BUN Creatinine Estim Creat Clear Calc Estimated GFR Glucose POC Capillary Glucose 146 H Lactic Acid Calcium Phosphorus Magnesium Total Bilirubin AST ALT Alkaline Phosphatase C-Reactive Protein Total Protein Albumin Random Vancomycin 15.1 01/12/25 01/12/25 05:10 05:42 WBC 10.6 H RBC 4.20 L Hgb 12.4 L Hct 41.1 L MCV 97.9 MCH 29.5 MCHC 30.2 L RDW 17.1 H Plt Count 133 L MPV 11.7 H Immature Gran % (Auto) 0.8 H Neut % (Auto) 91.3 H Lymph % (Auto) 2.7 L Hard[place] % (Auto) 5.1 Eos % (Auto) 0.0 Baso % (Auto) 0.1 L Lymph # (Auto) 0.29 L Hardin # (Auto) 0.5 Eos # (Auto) 0.0 Baso # (Auto) 0.0 Abs Immat Gran (auto) 0.08 H Absolute Neuts (auto) 9.6 H Absolute Nucleated RBC 0.070 H Nucleated RBC % 0.7 H PT 14.7 INR 1.1 APTT 77.6 H Puncture Site Artline ABG pH 7.361 ABG pCO2 44.5 ABG pO2 104.4 H ABG PO2/FiO2 Ratio 2.09 ABG HCO3 24.6 ABG O2 Saturation 97.6 ABG O2 Content 17.6 ABG Base Excess -1.0 A-a Gradient 202.0 Oxyhemoglobin 97.1 Carboxyhemoglobin 0.5 Methemoglobin 0.2 Reduced Hemoglobin 2.2 Total Hemoglobin 12.8 O2 Delivery Device Ventilator O2 Liters/Min Not Reportable Minute Volume Not Reportable Vent Rate 26 Vent Mode Cmv FiO2 50 Tidal Volume 500 PEEP 12 Peak Inspir Pressure Not Reportable Pressure Support Not Reportable Sodium 140 Potassium 4.3 Chloride 108 H Carbon Dioxide 25 Anion Gap 7 BUN 103 H* Creatinine 2.59 H Estim Creat Clear Calc 33 Estimated GFR 25 L Glucose 141 H POC Capillary Glucose Lactic Acid 1.0 Calcium 8.1 L Phosphorus 4.2 Magnesium 2.8 H Total Bilirubin 0.3 AST 212 H ALT 525 H Alkaline Phosphatase 73 C-Reactive Protein 5.4 H Total Protein 5.2 L Albumin 2.8 L Random Vancomycin
[2025-01-12 13:02] LABS: Triglycerides 93 mg/dL (<150)
--- NOTE | 2025-01-12 13:15 | WPDINTPN ---
Progress Note: A&P Assessment and Plan (1) Acute hypoxic respiratory failure: Code(s): J96.01 - Acute respiratory failure with hypoxia Status: Acute Assessment and Plan: 01/09: Patient presented the ED via EMS after the called 911 as patient has been laying in bed with agonal breathing for the last 2 days, upon arrival of the EMS patient was unresponsive, with agonal breaths. Bag-mask ventilation was started patient was hypotensive, in the ER patient had a GCS of 3 and was emergently intubated. Post intubation patient is on O2 sats were in the upper 60s to 70s. Patient was in a PEEP of 15 and 100% FiO2 -01/09: I was asked to come down to the ER to evaluate the patient, patient was given rocuronium, and revealed emergently to the ICU -remains on CMV mode of ventilation, peep of 12, 55% FiO2, wean FiO2 to maintain O2 sat > 92%, -01/09: emergent bronch was performed in the ICU with significant thick mucus plugs in the right mainstem, right upper lobe and right lower lobe. Suction and cleared most of the secretions with the bronchoscope.O2 sats improved to 95-99% -chest x-ray and ABGs reviewed -ventilator adjusted peep decreased to 10, wean FiO2 to maintain O2 sats > 92% given patient has severe COPD -chest physiotherapy per RT -continue Mucomyst and Pulmozyme nebulizer -continue DuoNebs -continue Symbicort inhaler -status post Solu-Medrol -sedated with fentanyl and Versed infusion, maintain RASS of 0 to -2, daily SBT and SAT 01/09: CT PE protocol, abdomen and pelvis with no evidence of pulmonary embolism, extensive right upper lobe and lower lobe airspace disease consistent with pneumonia. Bilateral pleural effusion, right greater than left. Hyperdense right renal masses, cannot exclude renal cell carcinoma, consider correlation with MRI abdomen with contrast. Small pericardial (2) Septic shock: Code(s): A41.9 - Sepsis, unspecified organism; R65.21 - Severe sepsis with septic shock Status: Acute Assessment and Plan: Patient with hypotension, acute respiratory failure, lactic acidosis, tachycardia -UA was negative -patient given 2 L IV fluid bolus -continue maintenance IV fluid -lactic acid has normalized -OFF Levophed, will maintain MAP > 65 mm or SBP > 100 mmHg at all times for adequate end organ perfusion -started on cefepime, vancomycin, doxycycline, Flagyl (01/09) -01/09: Blood culture -Gram-positive cocci -01/09: Sputum culture -Gram-negative bacilli -01/09: Urine Legionella pending -01/11: Repeat blood cultures pending (3) Pneumonia: Qualifiers: Laterality: right Lung location: unspecified part of lung Pneumonia type: due to unspecified organism Qualified Code(s): J18.9 - Pneumonia, unspecified organism Code(s): J18.9 - Pneumonia, unspecified organism Status: Acute Assessment and Plan: Likely pneumonia on of the right upper and lower lobe -COVID, RSV and influenza were NEGATIVE -continue antibiotics as above -currently on mechanical ventilation (4) Acute exacerbation of chronic obstructive pulmonary disease: Code(s): J44.1 - Chronic obstructive pulmonary disease with (acute) exacerbation Status: Acute Assessment and Plan: History of is COPD with emphysema seen on CT scan of the chest -continue bronchodilators as above (5) Atrial fibrillation: Qualifiers: Atrial fibrillation type: unspecified Qualified Code(s): I48.91 - Unspecified atrial fibrillation Code(s): I48.91 - Unspecified atrial fibrillation Status: Acute Assessment and Plan: History of atrial flutter/fibrillation patient is on apixaban at home, hold apixaban for now -currently in AFib, RVR with heart rates in the 100-110s -continue heparin infusion as patient may require further procedures such thoracentesis -continue amiodarone infusion (6) Polysubstance use disorder: Code(s): F19.90 - Other psychoactive substance use, unspecified, uncomplicated Status: Acute Assessment and Plan: Urine tox screen was positive for cannabis and cocaine -will consumer credit counselor patient once he is extubated (7) Transaminitis: Code(s): R74.01 - Elevation of levels of liver transaminase levels Status: Acute Assessment and Plan: Significantly elevated LFTs, -RUQ ultrasound shows hepatomegaly with additional findings of portal hypertension -hepatitis panel was negative -could also be related to hypoxia, hypotension/shock -continue to monitor liver function tests (8) Elevated troponin: Code(s): R79.89 - Other specified abnormal findings of blood chemistry Status: Acute Assessment and Plan: Elevated troponin 0.215 -could be related to type 2 infarct, is EKG did not show any ST elevation -troponins were flat, 01/10/2025: Echocardiogram Summary 1. Complete two-dimensional, color flow and Doppler transthoracic echocardiogram is performed. 2. Somewhat challenging exam with patient on ventilator support. 3. Normal left ventricular size with overall good systolic function, paradoxical septal motion consistent with bundle branch block. EF 55-60% 4. Right ventricular enlargement with systolic dysfunction. 5. Mild tricuspid regurgitation, estimated RV systolic pressure 51 mmHg. 6. Sclerotic aortic valve which exhibits preserved leaflet excursion. (9) Current smoker: Code(s): F17.200 - Nicotine dependence, unspecified, uncomplicated Status: Acute Assessment and Plan: Will consumer credit counselor patient on tobacco cessation once he is extubated (10) CHF (congestive heart failure): Qualifiers: Heart failure type: unspecified Heart failure chronicity: chronic Qualified Code(s): I50.9 - Heart failure, unspecified Code(s): I50.9 - Heart failure, unspecified Status: Acute Assessment and Plan: Patient has a history of CHF, likely HFpEF -proBNP > 49861 Echocardiogram as above, EF of 55%, RVSP 51 mmHg, moderate pulmonary hypertension likely related to COPD -chest x-ray does not show pulmonary edema (11) Electrolyte imbalance: Code(s): E87.8 - Other disorders of electrolyte and fluid balance, not elsewhere classified Status: Acute Assessment and Plan: Hyperkalemia, initial potassium 6.1 in the ER -resolved -potassium stable and normal (12) Acute renal failure: Code(s): N17.9 - Acute kidney failure, unspecified Status: Acute Assessment and Plan: 01/09/2025: Patient presented with creatinine of 3.81 (baseline 1.10-1.23). Multifactorial likely related to infection, sepsis, shock, medications, polysubstance abuse -Adequately fluid-resuscitated -Urine lytes showed prerenal picture -renal ultrasound with no hydronephrosis or calculi, intermittent focus within the interpolar region of the right kidney for which contrast enhanced CT or MRI is suggested -urine eosinophils negative -CPK levels are normal -urine output has been adequate, creatinine trending down, -BUN remains elevated Continue to monitor renal function, electrolytes and urine output Plan DVT prophylaxis: Heparin infusion Stress ulcer prophylaxis: Protonix Nutrition: Tolerating tube feeds. P.r.n. MiraLax was ordered, will also start Colace Code Status: DNR Critical Care Time Spent: 32 minutes 01/10: Discussed with Aura, sister in rounds, patient lives with her and she is the POA. She did state that he was sleeping for 1.5 to 2 days and did not wake up she she called EMS. She also noted thick secretions on his pillowcase. He does smoke marijuana but she is unaware how he got cocaine, he must have gone out and got some cocaine she states. He has stopped using his oxygen a few months back by himself as he stated he does not need it anymore. He used to be on 5 L nasal cannula at home. I discussed with her at length regarding what happened to the patient and now hypoxic he was creatinine to a bronchoscopy emergently to improve his oxygen levels. She did reiterate that he is a DNR. Due to a high probability of clinically significant, life threatening deterioration, the patient required my highest level of preparedness to intervene emergently and I personally spent this critical care time directly and personally managing the patient. This critical care time included obtaining a history; examining the patient; pulse oximetry; ordering and review of studies; arranging urgent treatment with development of a management plan; evaluation of patient's response to treatment; frequent reassessment; and discussions with other providers. It was exclusive of separately billable procedures and treating other patients and teaching time. Please see Assessment and Plan section and the rest of the note for further information on patient assessment and treatment This dictation may have been done utilizing a voice recognition system. Attempts have been made to correct errors. However, there may be uncorrected grammatical, spelling, and recognitions errors present. Subjective Date/time seen: 01/12/25 13:15 Interval history: Reason for consult: Acute hypoxic respiratory failure, altered mental status, pneumonia, acute kidney injury, hyperkalemia, severe sepsis/shock, transaminitis 01/09: Bronchoscopy 01/12/2025: Patient seen and examined the ICU, remains intubated on CMV mode of ventilation, peep of 12, 50% FiO2. Sedated with fentanyl and Versed infusion, patient is difficult to sedate, continues to along the ventilator. Adequate urine output, creatinine improving, but elevated BUN. LFT slightly elevated today. Lactic acid is normal, INR is 1.1. WBC count trending down. Hemoglobin remained stable. Patient is hemodynamically stable, not requiring any pressors . Review of Systems Review of Systems: ROS unobtainable: Yes unobtainable due to endotracheal tube, unobtainable due to medical condition and unobtainable due to mental status Exam Narrative: General: Patient intubated and sedated, in no acute distress at this time HEENT:? Pupils equally reactive, sclera is clear, ETT in place Neck:? Supple Respiratory:? Coarse breath sounds bilaterally R > L, decreased breath sounds at right base, distant breath sounds Cardiac:? Irregularly irregular, tachycardia Abdomen:? Soft, nontender, nondistended, hypoactive bowel sounds Extremities:? Extremities are warm, palpable pedal pulse Neuro:? Patient intubated, sedated, patient did open his eyes, follows simple commands all extremities bilaterally Skin:? No skin lesions noted Psych:? Unable to assess at this time Objective Data Vital Signs Vital Signs: Vital Signs - 24 hr 01/11/25 13:25 01/11/25 13:25 01/11/25 13:54 Temperature Pulse Rate 124 H 126 H 110 H Respiratory Rate 24 H 26 H Blood Pressure Pulse Oximetry 96 Oxygen Delivery Mechanical Ventilation Fraction of Inspired Oxygen 50 01/11/25 14:00 01/11/25 14:00 01/11/25 14:00 Temperature 98.5 F Pulse Rate 98 103 H 100 Respiratory Rate 26 H 26 H Blood Pressure 98/52 L 103/56 L Pulse Oximetry 98 Oxygen Delivery Fraction of Inspired Oxygen 01/11/25 14:00 01/11/25 16:00 01/11/25 16:00 Temperature 98.5 F Pulse Rate 101 H 95 106 H Respiratory Rate 26 H Blood Pressure 95/55 L 103/54 L Pulse Oximetry 99 Oxygen Delivery Fraction of Inspired Oxygen 01/11/25 16:00 01/11/25 16:00 01/11/25 16:00 Temperature Pulse Rate 96 96 Respiratory Rate 26 H 26 H Blood Pressure Pulse Oximetry 100 Oxygen Delivery Mechanical Ventilation Fraction of Inspired Oxygen 50 01/11/25 16:00 01/11/25 16:00 01/11/25 16:51 Temperature Pulse Rate 108 H 100 Respiratory Rate Blood Pressure 99/55 L Pulse Oximetry Oxygen Delivery Fraction of Inspired Oxygen 50 01/11/25 16:51 01/11/25 17:00 01/11/25 17:32 Temperature 98.4 F Pulse Rate 100 101 H 102 H Respiratory Rate 26 H Blood Pressure 99/55 L 100/58 L Pulse Oximetry 99 96 Oxygen Delivery Mechanical Ventilation Fraction of Inspired Oxygen 50 01/11/25 18:00 01/11/25 18:00 01/11/25 18:00 Temperature 98.5 F Pulse Rate 93 90 93 Respiratory Rate 26 H 26 H Blood Pressure 98/65 L Pulse Oximetry 100 Oxygen Delivery Fraction of Inspired Oxygen 01/11/25 18:00 01/11/25 18:00 01/11/25 19:00 Temperature 98.0 F Pulse Rate 89 95 89 Respiratory Rate 26 H 26 H Blood Pressure 98/65 L 108/60 Pulse Oximetry 100 Oxygen Delivery Fraction of Inspired Oxygen 01/11/25 20:00 01/11/25 20:00 01/11/25 20:00 Temperature 97.9 F Pulse Rate 89 91 Respiratory Rate 26 H Blood Pressure 116/67 Pulse Oximetry 99 Oxygen Delivery Fraction of Inspired Oxygen 50 01/11/25 20:00 01/11/25 20:00 01/11/25 20:00 Temperature Pulse Rate 126 H 126 H Respiratory Rate 24 H 24 H Blood Pressure Pulse Oximetry 100 Oxygen Delivery Mechanical Ventilation Fraction of Inspired Oxygen 50 01/11/25 20:16 01/11/25 20:59 01/11/25 22:00 Temperature 98.0 F 98.2 F Pulse Rate 94 109 H 92 Respiratory Rate 26 H 26 H Blood Pressure 103/54 L 110/58 L Pulse Oximetry 97 98 96 Oxygen Delivery Mechanical Ventilation Fraction of Inspired Oxygen 50 01/11/25 22:00 01/11/25 22:00 01/11/25 22:00 Temperature Pulse Rate 117 H 117 H 117 H Respiratory Rate 24 H 24 H Blood Pressure Pulse Oximetry Oxygen Delivery Fraction of Inspired Oxygen 01/11/25 23:00 01/11/25 23:15 01/11/25 23:15 Temperature 98.4 F Pulse Rate 87 96 96 Respiratory Rate 26 H 26 H 26 H Blood Pressure 111/58 L Pulse Oximetry 97 Oxygen Delivery Fraction of Inspired Oxygen 01/11/25 23:15 01/11/25 23:15 01/11/25 23:15 Temperature Pulse Rate 96 96 96 Respiratory Rate 26 H 26 H 26 H Blood Pressure Pulse Oximetry Oxygen Delivery Fraction of Inspired Oxygen 01/11/25 23:35 01/12/25 00:00 01/12/25 00:00 Temperature 98.4 F Pulse Rate 94 102 H Respiratory Rate 26 H Blood Pressure 132/72 Pulse Oximetry 97 96 Oxygen Delivery Mechanical Ventilation Fraction of Inspired Oxygen 50 50 01/12/25 00:00 01/12/25 00:00 01/12/25 00:00 Temperature Pulse Rate 88 128 H 128 H Respiratory Rate 24 H 24 H Blood Pressure Pulse Oximetry Oxygen Delivery Fraction of Inspired Oxygen 01/12/25 00:00 01/12/25 01:00 01/12/25 01:08 Temperature 98.4 F Pulse Rate 108 H 125 H Respiratory Rate 26 H 16 Blood Pressure 128/65 Pulse Oximetry 100 96 Oxygen Delivery Mechanical Ventilation Fraction of Inspired Oxygen 50 01/12/25 02:00 01/12/25 02:00 01/12/25 02:00 Temperature 98.5 F Pulse Rate 101 H 102 H 102 H Respiratory Rate 26 H 21 H Blood Pressure 108/55 L Pulse Oximetry 96 Oxygen Delivery Fraction of Inspired Oxygen 01/12/25 02:00 01/12/25 02:30 01/12/25 03:00 Temperature 98.2 F Pulse Rate 102 H 112 H 107 H Respiratory Rate 21 H 26 H Blood Pressure 126/63 Pulse Oximetry 96 96 Oxygen Delivery Mechanical Ventilation Fraction of Inspired Oxygen 50 01/12/25 04:00 01/12/25 04:00 01/12/25 04:00 Temperature Pulse Rate 99 100 100 Respiratory Rate 26 H 26 H Blood Pressure Pulse Oximetry Oxygen Delivery Fraction of Inspired Oxygen 01/12/25 04:00 01/12/25 04:00 01/12/25 04:00 Temperature 98.2 F Pulse Rate 94 Respiratory Rate 26 H Blood Pressure 131/67 Pulse Oximetry 100 100 Oxygen Delivery Mechanical Ventilation Fraction of Inspired Oxygen 50 50 01/12/25 04:48 01/12/25 04:48 01/12/25 05:00 Temperature 98.2 F Pulse Rate 104 H 104 H 92 Respiratory Rate 26 H Blood Pressure 136/72 136/72 122/65 Pulse Oximetry 97 Oxygen Delivery Fraction of Inspired Oxygen 01/12/25 05:11 01/12/25 06:00 01/12/25 06:00 Temperature 98.2 F Pulse Rate 102 H 98 106 H Respiratory Rate 26 H Blood Pressure 112/58 L Pulse Oximetry 98 98 Oxygen Delivery Mechanical Ventilation Fraction of Inspired Oxygen 50 01/12/25 06:00 01/12/25 06:00 01/12/25 07:00 Temperature 98.2 F Pulse Rate 106 H 106 H 100 Respiratory Rate 26 H 26 H 26 H Blood Pressure 103/56 L Pulse Oximetry 97 Oxygen Delivery Fraction of Inspired Oxygen 01/12/25 08:00 01/12/25 08:00 01/12/25 08:00 Temperature 98.2 F Pulse Rate 97 97 Respiratory Rate 23 H Blood Pressure 126/66 118/82 Pulse Oximetry 98 Oxygen Delivery Fraction of Inspired Oxygen 50 01/12/25 08:00 01/12/25 08:00 01/12/25 08:00 Temperature Pulse Rate 97 97 Respiratory Rate 26 H 26 H Blood Pressure Pulse Oximetry 99 Oxygen Delivery Mechanical Ventilation Fraction of Inspired Oxygen 50 01/12/25 08:00 01/12/25 08:28 01/12/25 08:38 Temperature Pulse Rate 98 105 H 103 H Respiratory Rate 26 H Blood Pressure Pulse Oximetry 97 Oxygen Delivery Mechanical Ventilation Fraction of Inspired Oxygen 50 01/12/25 08:47 01/12/25 09:00 01/12/25 10:00 Temperature 98.4 F 98.5 F Pulse Rate 108 H 100 104 H Respiratory Rate 28 H 26 H 26 H Blood Pressure 114/62 110/56 L Pulse Oximetry 97 99 Oxygen Delivery Fraction of Inspired Oxygen 01/12/25 10:00 01/12/25 10:00 01/12/25 10:00 Temperature Pulse Rate 104 H 104 H 104 H Respiratory Rate 26 H 26 H Blood Pressure 110/56 L Pulse Oximetry Oxygen Delivery Fraction of Inspired Oxygen 01/12/25 10:00 01/12/25 10:10 01/12/25 11:00 Temperature Pulse Rate 102 H 97 Respiratory Rate 26 H Blood Pressure Pulse Oximetry Oxygen Delivery Mechanical Ventilation Fraction of Inspired Oxygen 01/12/25 11:00 01/12/25 11:01 01/12/25 11:02 Temperature 98.6 F Pulse Rate 100 89 98 Respiratory Rate 26 H 26 H Blood Pressure 88/48 L 84/49 L Pulse Oximetry 100 Oxygen Delivery Fraction of Inspired Oxygen 01/12/25 11:13 01/12/25 11:14 01/12/25 11:27 Temperature Pulse Rate 94 99 89 Respiratory Rate 26 H Blood Pressure 140/73 Pulse Oximetry 98 Oxygen Delivery Mechanical Ventilation Fraction of Inspired Oxygen 40 01/12/25 12:00 01/12/25 12:00 01/12/25 12:00 Temperature 98.2 F Pulse Rate 101 H Respiratory Rate 26 H Blood Pressure 131/67 Pulse Oximetry 97 97 Oxygen Delivery Mechanical Ventilation Fraction of Inspired Oxygen 40 40 01/12/25 12:00 01/12/25 12:00 01/12/25 12:00 Temperature Pulse Rate 95 95 95 Respiratory Rate 26 H 26 H Blood Pressure 134/69 Pulse Oximetry Oxygen Delivery Fraction of Inspired Oxygen 01/12/25 12:00 01/12/25 12:00 01/12/25 12:00 Temperature Pulse Rate 95 95 102 H Respiratory Rate 26 H Blood Pressure 132/68 Pulse Oximetry Oxygen Delivery Fraction of Inspired Oxygen 01/12/25 13:00 Temperature 98.3 F Pulse Rate 94 Respiratory Rate 26 H Blood Pressure 108/56 L Pulse Oximetry 98 Oxygen Delivery Fraction of Inspired Oxygen Intake/Output Intake/Output: Intake & Output 01/09/25 01/10/25 01/11/25 01/12/25 23:59 23:59 23:59 23:59 Intake Total 1242.8 3612.6 2676.1 886.1 Output Total 525 750 800 800 Balance 717.8 2862.6 1876.1 86.1 Meds/Results Medications: Active Medications Generic Name Dose Route Start Last Admin Trade Name Freq PRN Reason Stop Dose Admin Acetaminophen 650 mg 01/09/25 14:52 Acetaminophen 650 Mg Suppository RECTAL Q6H PRN Mild Pain (1-3) or Fever Acetylcysteine 200 mg 01/09/25 20:00 01/12/25 08:25 Acetylcysteine 20% Inhal Soln 800 Mg/4 Ml Vial INHALATION 200 mg Q6HRT JENNY Administration Albuterol/Ipratropium 3 ml 01/09/25 20:00 01/12/25 08:26 Ipratropium 0.5 Mg/Albuterol Sulfate 2.5 Mg Ampul.Neb 3 Ml INHALATION 3 ml Q6HRT JENNY Administration Dextrose 12.5 gm 01/10/25 00:27 Dextrose 50% 25 Gm/50 Ml Syringe IV PUSH PRN PRN Hypoglycemia Protocol Dornase Prateek 2.5 mg 01/09/25 20:00 01/12/25 08:25 Dornase Prateek Inh Soln 1 Mg/Ml 2.5 Ml Amp INHALATION 01/12/25 19:59 2.5 mg Q12HRT JENNY Administration Glucagon 1 mg 01/10/25 00:27 Glucagon For Inj 1 Mg Vial IM PRN PRN Hypoglycemia Protocol Glucose 15 gm 01/10/25 00:27 Glucose Oral Gel 15 Gm Of Glucse In 37.5 Gm Tube PO PRN PRN Hypoglycemia Protocol Heparin Sodium (Porcine) 7,000 units 01/09/25 18:05 01/10/25 23:53 Heparin Sodium 5,000 Units/Ml Vial IV PUSH 7,000 units PRN PRN Administration aPTT less than 55 seconds Heparin Sodium (Porcine) 3,500 units 01/09/25 18:05 01/10/25 08:58 Heparin Sodium 5,000 Units/Ml Vial IV PUSH 3,500 units PRN PRN Administration aPTT 55 - 70 seconds Doxycycline Hyclate 100 mg/ 100 mls @ 100 mls/hr 01/09/25 19:00 01/12/25 08:53 Sodium Chloride IVPB 01/14/25 18:59 Infused Q12H JENNY Infusion Cefepime HCl 1 gm/ Sodium 50 mls @ 100 mls/hr 01/10/25 06:00 01/12/25 06:05 Chloride IVPB 100 mls/hr Q12H JENNY Administration Heparin Sodium/Dextrose 25,000 units in 250 mls @ 15 mls/hr 01/09/25 18:05 01/12/25 09:42 Heparin Sodium/D5w 100 Units/Ml IV CONT 1,500 units/hr .[id number] JENNY 15 mls/hr Administration Protocol 1,500 UNITS/HR Dextrose 1,000 mls @ 100 mls/hr 01/10/25 00:27 Dextrose 5% 1,000 Ml IVPB PRN PRN Hypoglycemia Protocol Midazolam HCl 100 mg in 100 mls @ 2 mls/hr 01/10/25 18:40 01/12/25 12:00 Versed 100 Mg/Ns 100 Ml IV CONT 2 mg/hr .Q50H JENNY 2 mls/hr Titration Protocol 2 MG/HR Fentanyl Citrate 2,500 mcg in 250 mls @ 7.5 mls/hr 01/11/25 00:05 01/12/25 12:00 Fentanyl 2,500 Mcg/Ns 250 Ml IV CONT 75 mcg/hr .[id number] JENNY 7.5 mls/hr Titration Protocol 75 MCG/HR Amiodarone HCl/Dextrose 360 mg in 200 mls @ 16.667 mls/hr 01/11/25 07:00 01/12/25 12:00 Nexterone 360 Mg/D5w 200 Ml IV CONT 0.5 mg/min .Q12H JENNY 16.67 mls/hr Infusion 0.5 MG/MIN Norepinephrine Bitartrate 8 mg in 250 mls @ 3.75 mls/hr 01/12/25 10:55 01/12/25 12:00 Levophed 8 Mg/D5w 250 Ml IV CONT 2 mcg/min .Q24H JENNY 3.75 mls/hr Titration Protocol 2 MCG/MIN Propofol 100 mls @ 6.492 mls/hr 01/12/25 10:55 01/12/25 12:00 Diprivan IV CONT 10 mcg/kg/min .[id number] JENNY 6.49 mls/hr Titration Protocol 10 MCG/KG/MIN Insulin Aspart 3 - 6 units 01/10/25 06:00 01/12/25 12:29 Insulin Aspart (*Bkc) 100 Units/Ml SUB-Q Not Given Q6HR JENNY Protocol Methylprednisolone Sodium Succinate 40 mg 01/11/25 18:00 01/12/25 06:05 Methylprednisolone Sod Succ 40 Mg Vial IV PUSH 40 mg Q12H JENNY Administration Multi-Ingred Cream/Lotion/Oil/Oint 1 applic 01/12/25 21:00 Mineral Oil/White Petrolatum Ointment EACH EYE Q12HR JENNY Pantoprazole Sodium 40 mg 01/09/25 21:00 01/12/25 09:40 Pantoprazole Sodium Iv 40 Mg Vial IV PUSH 40 mg Q12HR JENNY Administration Perflutren Lipid Microsphere 0 ml 01/09/25 18:26 Perflutren Lipid Microspheres 1.5 Ml Vial Diluted To 10 Ml Total Volume IV PUSH 01/12/25 18:26 ONCE PRN adequate visualization Protocol Polyethylene Glycol 17 gm 01/12/25 10:42 Polyethylene Glycol 3350 17 Gm Powd.Pack PO QAM PRN Constipation Fluticasone/Salmeterol 2 puff 01/09/25 20:00 01/12/25 08:26 Fluticasone/Salmeterol 115-21 Mcg Inhaler 1 Puff INHALATION Not Given Q12HRT JENNY Senna/Docusate Sodium 1 tab 01/12/25 21:00 Senna/Docusate Sodium Tablet PO HS JENNY Sodium Chloride 10 ml 01/09/25 22:00 01/12/25 06:12 Central Line Flush IV PUSH 10 ml Q8HR JENNY Administration Sodium Chloride 20 ml 01/09/25 17:08 Central Line Flush IV PUSH PRN PRN after blood draws Sodium Chloride 10 ml 01/09/25 22:00 01/12/25 06:12 Central Line Flush IV PUSH 10 ml Q8HR JENNY Administration Sodium Chloride 20 ml 01/09/25 17:34 01/11/25 05:29 Central Line Flush IV PUSH 20 ml PRN PRN Administration after blood draws Vancomycin HCl 1 each 01/09/25 13:55 Vancomycin For Acute Kidney Injury IVPB PRN PRN Vancomycin Protocol Radiology Results: ITS Impressions Abdomen X-Ray 01/09/25 13:38 IMPRESSION: 1: NG tube tip in the stomach. Chest/Abdomen/Pelvis CTA 01/09/25 13:59 IMPRESSION: 1. Extensive airspace disease of the right upper and lower lobe, consistent with pneumonia. 2: Bilateral pleural effusions, right greater than left. 3: Hypodense right renal masses. Cannot exclude renal cell carcinoma. Consider correlation with MRI abdomen with contrast. 4: Small pericardial effusion. Head CT 01/09/25 14:00 IMPRESSION: 1. No acute intracranial hemorrhage. No mass effect. 2. Probable chronic ischemic white matter change. Renal Ultrasound 01/09/25 19:35 IMPRESSION: No hydronephrosis or renal calculi. Indeterminate focus within the interpolar region of the right kidney, for which contrast enhanced CT or MRI (with renal mass protocol) is suggested for further evaluation. Abdomen Ultrasound 01/09/25 19:44 IMPRESSION: Limited evaluation of the pancreas secondary to overlying bowel gas Hepatomegaly with additional findings of portal hypertension, as detailed above. Chest X-Ray 01/12/25 07:17 IMPRESSION: 1. Endotracheal tube tip 7.3 cm above the nadya. Consider advancement by 5 cm. 2. Persistent small right pleural effusion with right basilar atelectasis and/or pneumonia. Labs Labs: Laboratory Results - last 24 hr 01/11/25 01/11/25 01/11/25 12:17 16:48 16:55 WBC RBC Hgb Hct MCV MCH MCHC RDW Plt Count MPV Immature Gran % (Auto) Neut % (Auto) Lymph % (Auto) [place] % (Auto) Eos % (Auto) Baso % (Auto) Lymph # (Auto) [place] # (Auto) Eos # (Auto) Baso # (Auto) Abs Immat Gran (auto) Absolute Neuts (auto) Absolute Nucleated RBC Nucleated RBC % PT INR APTT Puncture Site ABG pH ABG pCO2 ABG pO2 ABG PO2/FiO2 Ratio ABG HCO3 ABG O2 Saturation ABG O2 Content ABG Base Excess A-a Gradient Oxyhemoglobin Carboxyhemoglobin Methemoglobin Reduced Hemoglobin Total Hemoglobin O2 Delivery Device O2 Liters/Min Minute Volume Vent Rate Vent Mode FiO2 Tidal Volume PEEP Peak Inspir Pressure Pressure Support Sodium Potassium Chloride Carbon Dioxide Anion Gap BUN Creatinine Estim Creat Clear Calc Estimated GFR Glucose POC Capillary Glucose 151 H 133 H Lactic Acid Calcium Phosphorus Magnesium Total Bilirubin AST ALT Alkaline Phosphatase C-Reactive Protein Total Protein Albumin Triglycerides Random Vancomycin 15.1 01/11/25 01/12/25 01/12/25 18:22 00:51 05:10 WBC RBC Hgb Hct MCV MCH MCHC RDW Plt Count MPV Immature Gran % (Auto) Neut % (Auto) Lymph % (Auto) [place] % (Auto) Eos % (Auto) Baso % (Auto) Lymph # (Auto) [place] # (Auto) Eos # (Auto) Baso # (Auto) Abs Immat Gran (auto) Absolute Neuts (auto) Absolute Nucleated RBC Nucleated RBC % PT INR APTT 76.0 H Puncture Site Artline ABG pH 7.361 ABG pCO2 44.5 ABG pO2 104.4 H ABG PO2/FiO2 Ratio 2.09 ABG HCO3 24.6 ABG O2 Saturation 97.6 ABG O2 Content 17.6 ABG Base Excess -1.0 A-a Gradient 202.0 Oxyhemoglobin 97.1 Carboxyhemoglobin 0.5 Methemoglobin 0.2 Reduced Hemoglobin 2.2 Total Hemoglobin 12.8 O2 Delivery Device Ventilator O2 Liters/Min Not Reportable Minute Volume Not Reportable Vent Rate 26 Vent Mode Cmv FiO2 50 Tidal Volume 500 PEEP 12 Peak Inspir Pressure Not Reportable Pressure Support Not Reportable Sodium Potassium Chloride Carbon Dioxide Anion Gap BUN Creatinine Estim Creat Clear Calc Estimated GFR Glucose POC Capillary Glucose 146 H Lactic Acid Calcium Phosphorus Magnesium Total Bilirubin AST ALT Alkaline Phosphatase C-Reactive Protein Total Protein Albumin Triglycerides Random Vancomycin 01/12/25 01/12/25 01/12/25 05:42 11:41 12:23 WBC 10.6 H RBC 4.20 L Hgb 12.4 L Hct 41.1 L MCV 97.9 MCH 29.5 MCHC 30.2 L RDW 17.1 H Plt Count 133 L MPV 11.7 H Immature Gran % (Auto) 0.8 H Neut % (Auto) 91.3 H Lymph % (Auto) 2.7 L [place] % (Auto) 5.1 Eos % (Auto) 0.0 Baso % (Auto) 0.1 L Lymph # (Auto) 0.29 L [place] # (Auto) 0.5 Eos # (Auto) 0.0 Baso # (Auto) 0.0 Abs Immat Gran (auto) 0.08 H Absolute Neuts (auto) 9.6 H Absolute Nucleated RBC 0.070 H Nucleated RBC % 0.7 H PT 14.7 INR 1.1 APTT 77.6 H Puncture Site ABG pH ABG pCO2 ABG pO2 ABG PO2/FiO2 Ratio ABG HCO3 ABG O2 Saturation ABG O2 Content ABG Base Excess A-a Gradient Oxyhemoglobin Carboxyhemoglobin Methemoglobin Reduced Hemoglobin Total Hemoglobin O2 Delivery Device O2 Liters/Min Minute Volume Vent Rate Vent Mode FiO2 Tidal Volume PEEP Peak Inspir Pressure Pressure Support Sodium 140 Potassium 4.3 Chloride 108 H Carbon Dioxide 25 Anion Gap 7 BUN 103 H* Creatinine 2.59 H Estim Creat Clear Calc 33 Estimated GFR 25 L Glucose 141 H POC Capillary Glucose 153 H 159 H Lactic Acid 1.0 Calcium 8.1 L Phosphorus 4.2 Magnesium 2.8 H Total Bilirubin 0.3 AST 212 H ALT 525 H Alkaline Phosphatase 73 C-Reactive Protein 5.4 H Total Protein 5.2 L Albumin 2.8 L Triglycerides Random Vancomycin 01/12/25 12:32 WBC RBC Hgb Hct MCV MCH MCHC RDW Plt Count MPV Immature Gran % (Auto) Neut % (Auto) Lymph % (Auto) [place] % (Auto) Eos % (Auto) Baso % (Auto) Lymph # (Auto) [place] # (Auto) Eos # (Auto) Baso # (Auto) Abs Immat Gran (auto) Absolute Neuts (auto) Absolute Nucleated RBC Nucleated RBC % PT INR APTT Puncture Site ABG pH ABG pCO2 ABG pO2 ABG PO2/FiO2 Ratio ABG HCO3 ABG O2 Saturation ABG O2 Content ABG Base Excess A-a Gradient Oxyhemoglobin Carboxyhemoglobin Methemoglobin Reduced Hemoglobin Total Hemoglobin O2 Delivery Device O2 Liters/Min Minute Volume Vent Rate Vent Mode FiO2 Tidal Volume PEEP Peak Inspir Pressure Pressure Support Sodium Potassium Chloride Carbon Dioxide Anion Gap BUN Creatinine Estim Creat Clear Calc Estimated GFR Glucose POC Capillary Glucose Lactic Acid Calcium Phosphorus Magnesium Total Bilirubin AST ALT Alkaline Phosphatase C-Reactive Protein Total Protein Albumin Triglycerides 93 Random Vancomycin Quality VTE Prophylaxis VTE prophylaxis: pharmacologic ordered
[2025-01-12] MEDS: PROPOFOL IV EMULSION 100 ML 19.48 MG IV CONT ×2 (17:05→22:15)
[2025-01-12] MEDS: MINERAL OIL/WHITE PETROLATUM OINTMENT 1 APPLIC EACH EYE (20:11)
[2025-01-12] MEDS: SENNA/DOCUSATE SODIUM TABLET 1 TAB PO (20:12)
[2025-01-12] MEDS: VANCOMYCIN 1,250 MG/NS 250 ML 1,250 MG/250 ML BAG 167 MG IVPB (20:45)
[2025-01-12] MEDS: FENTANYL 2,500MCG/NS250ML(*CRX 2,500 MCG/250 ML BAG 7.5 MCG IV CONT (22:48)
[2025-01-13] VITALS (62 sets, daily range): BP systolic 83–134; BP diastolic 42–75; PULSE 67–113; RESP 21–27; TEMP 36.9–37.7; O2SAT 93–100
[2025-01-13] MEDS: HEPARIN SOD/D5W 100 UNITS/ML 25,000 UNITS/250 ML BAG 15 UNITS IV CONT ×2 (02:30→17:30)
[2025-01-13] MEDS: IPRATROPIUM 0.5 MG/ALBUTEROL SULFATE 2.5 MG AMPUL.NEB 3 ML INHALATION ×4 (02:35→20:33)
[2025-01-13] MEDS: ACETYLCYSTEINE 20% INHAL SOLN 800 MG/4 ML VIAL 200 MG INHALATION ×4 (02:37→20:34)
[2025-01-13] MEDS: PROPOFOL IV EMULSION 100 ML 19.48 MG IV CONT ×3 (03:10→12:44)
[2025-01-13] MEDS: MIDAZOLAM 100MG/NS 100ML(*CRX) 100 MG/100 ML BAG IV CONT (03:41)
[2025-01-13 04:13] LABS: Hematocrit 40.2 % (42.0-52.0); Hemoglobin 12.2 g/dL (14.0-18.0); Immature Granulocyte Percent A 0.7 % (0-0.5); Lymphocytes Absolute Auto 0.92 K/mm3 (0.9-3.2); Mean Corpuscular HGB Conc 30.3 g/dl (32-36); Mean Corpuscular Hemoglobin 29.5 pg (26-34); Mean Corpuscular Volume 97.1 fl (80-100); Nucleated Red Blood Cells Absolute Auto 0.310 K/mm3 (0.0-0.012); Nucleated Red Blood Cells Perc 2.5 % (0.0-0.2); Platelet Count Result 145 k/mm3 (150-375); Red Blood Count 4.14 M/mm3 (4.6-6.20); White Blood Count 12.2 K/mm3 (4.5-10.0)
[2025-01-13 04:26] LABS: INR 1.2; Prothrombin Time 15.0 Seconds (11.1-14.7)
[2025-01-13 04:28] LABS: Partial Thromboplastin Time 70.3 Seconds (22.3-36.8)
[2025-01-13 04:29] LABS: Alanine Aminotransferase 558 U/L (6-50); Albumin Level 2.7 g/dL (3.5-5.1); Alkaline Phosphatase 76 U/L (38-126); Anion Gap 7 mmol/L (4-12); Aspartate Amino Transferase 217 U/L (17-59); Bilirubin,Total 0.4 mg/dL (0.2-1.3); Blood Urea Nitrogen 101 mg/dL (9-20); Calcium 8.4 mg/dL (8.4-10.2); Carbon Dioxide 26 mmol/L (22-30); Chloride 108 mmol/L (98-107); Estimated CRCL calculation 40 ml/min; Estimated Glomerular Filt Rate 31; Glucose 127 mg/dL (65-110); Magnesium 3.0 mg/dL (1.6-2.3); Potassium 3.9 mmol/L (3.4-5.0); Sodium 141 mmol/L (137-145); Total Protein 5.2 g/dL (6.3-8.2)
[2025-01-13 05:16] LABS: Alveolar/Arterial O2 Gradient 121.6 mmHg; Carboxyhemoglobin 0.7 % THb (0-2.0); Fractional Inspired Oxygen 35 %; HCO3 ABG 25.0 mEq/l (22.0-26.0); Methemoglobin ABG 0.2 %THb (0-1.5); Oxygen Content ABG 17.4 %vol (16.0-22.0); Oxygen Saturation ABG 95.4 % (95.0-100.0); PCO2 ABG 42.9 mmHg (35.0-45.0); PO2 ABG 78.1 mmHg (80.0-100.0); PO2 FiO2 Ratio Arterial Blood 2.23 %; Reduced Hemoglobin 4.9 %THb (0-5.0); Site Drawn ARTLINE
[2025-01-13 05:17] LABS: Arterial Blood Gas Tidal Volume 500 ml; Arterial Blood Gas Ventilator rate 26 /MIN
[2025-01-13] MEDS: CEFEPIME 1 GM in SODIUM CHLORIDE 0.9% IV 50 ML 100 ML IVPB ×2 (06:15→16:59)
[2025-01-13] MEDS: CENTRAL LINE FLUSH 10 ML IV PUSH ×6 (06:16→20:01)
[2025-01-13] MEDS: DOXYCYCLINE IV 100 MG in SODIUM CHLORIDE 0.9% IV 100 ML IVPB ×2 (06:40→18:35)
[2025-01-13] MEDS: PANTOPRAZOLE SODIUM IV 40 MG VIAL IV PUSH ×2 (08:40→20:00)
[2025-01-13] MEDS: MINERAL OIL/WHITE PETROLATUM OINTMENT 1 APPLIC EACH EYE ×2 (08:40→20:01)
--- NOTE | 2025-01-13 10:44 | P.PNNP_ITS ---
Progress Note: A&P Assessment and Plan (1) Acute kidney injury: Code(s): N17.9 - Acute kidney failure, unspecified Status: Acute Assessment and Plan: * DERECK on top of normal kidney function * as noted on admission * normal creatinine on hospital discharge in June 2024 * suspect ATN with multifactorial etiology: * infection/sepsis * hemodynamic instability/shock * prerenal factors * ARB + diuretic use prior to admission * polysubstance abuse * other (?) * contrast exposure (CTA C/A/P on 01/09) may hamper/delay recovery * evaluation to date noted: * urine electrolytes pre-renal * CT of abdomen with hypodense right renal masses * renal u/s with no hydronephrosis or renal calculi; indeterminate focus within the interpolar region of the right kidney * urine eosinophils negative * UA without evidence of infection * CPK normal * Intake/ output 1600 in and about 1600 out. * He is on 4 of Levophed. * Blood pressure is doing well. * Creatinine has come down again to 2.13 * Will continue current therapy. (2) Septic shock: Code(s): A41.9 - Sepsis, unspecified organism; R65.21 - Severe sepsis with septic shock Status: Acute Assessment and Plan: * as noted on presetation with hypotension, acute respiratory failure, lactic acidosis, tachycardia, and DERECK * presumably secondary to pneumonia * s/p 2 L IV fluid bolus and on maintenance IV fluid * lactic acid has normalized * weaned off Levophed * blood cultures no growth today. Him cultures Gram-negative bacilli * on cefepime, vancomycin, and doxycycline. * No fevers and white cell count is around 12 (3) Acute hypoxic respiratory failure: Code(s): J96.01 - Acute respiratory failure with hypoxia Status: Acute Assessment and Plan: * as noted on presentation to the ER * intubated in ER on admission (due to hypoxia and agonal breathing) * complicated by mucus plugging of right main stem bronchus requiring bronchoscopy with suctioning of secretions * CT imaging noted * no evidence of pulmonary embolism, extensive right upper lobe and lower lobe airspace disease consistent with pneumonia; ilateral pleural effusion, right greater than left * Echo noted: * normal left ventricular size with overall good systolic function, paradoxical septal motion consistent with bundle branch block * EF 55-60% * right ventricular enlargement with systolic dysfunction * mild tricuspid regurgitation, estimated RV systolic pressure 51 mmHg * sclerotic aortic valve which exhibits preserved leaflet excursion * on ventilator support. Minute volume not too bad at 12. On 35% FiO2 * chest physiotherapy * on nebulizer therapy, mucomyst, and pulmozyme * further complicated by known history of COPD (4) Pneumonia: Qualifiers: Laterality: right Lung location: unspecified part of lung Pneumonia type: due to unspecified organism Qualified Code(s): J18.9 - Pneumonia, unspecified organism Code(s): J18.9 - Pneumonia, unspecified organism Status: Acute Assessment and Plan: * as suggested by imaging to date * COVID, RSV and influenza testing negative * GNR in sputum culture * continue antibiotics * follow respiratory status (5) Acute exacerbation of chronic obstructive pulmonary disease: Code(s): J44.1 - Chronic obstructive pulmonary disease with (acute) exacerbation Status: Acute Assessment and Plan: * known history of is COPD with emphysema seen on CT scan of the chest * likely precipitated by pneumonia * on bronchodilator therapy (6) Atrial fibrillation: Qualifiers: Atrial fibrillation type: unspecified Qualified Code(s): I48.91 - Unspecified atrial fibrillation Code(s): I48.91 - Unspecified atrial fibrillation Status: Acute Assessment and Plan: * rate control strategy * on heparin gtt for anticoagulation (7) Transaminitis: Code(s): R74.01 - Elevation of levels of liver transaminase levels Status: Acute Assessment and Plan: * Numbers up and down a bit. * significantly elevated LFTs on admission * due to hypotension/shock and hypotension on presentation (?) * RUQ ultrasound shows hepatomegaly with additional findings of portal hypertension * hepatitis panel was negative * follow trend (8) Polysubstance use disorder: Code(s): F19.90 - Other psychoactive substance use, unspecified, uncomplicated Status: Acute Assessment and Plan: * urine tox screen was positive for cannabis and cocaine Will continue to follow. Subjective Date/time seen: 01/13/25 10:44 Interval history: Patient is on the ventilator. He is sedated Exam Narrative: General: ill appearing male intubated/sedated and on mechanical ventilation Heart: Regular rhythm today, normal S1 and S2; no rub or gallop Lungs: symmetric breath sounds, coarse upper airway noise. Abdomen: soft, nontender, nondistended, decreased bowel sounds Extremities: no edema Skin: No rash Objective Data Vital Signs Vital Signs: Vital Signs - 24 hr 01/12/25 11:00 01/12/25 11:00 01/12/25 11:01 Temperature 98.6 F Pulse Rate 97 100 89 Respiratory Rate 26 H 26 H Blood Pressure 88/48 L 84/49 L Pulse Oximetry 100 Oxygen Delivery Fraction of Inspired Oxygen 01/12/25 11:02 01/12/25 11:13 01/12/25 11:14 Temperature Pulse Rate 98 94 99 Respiratory Rate 26 H 26 H Blood Pressure 140/73 Pulse Oximetry Oxygen Delivery Fraction of Inspired Oxygen 01/12/25 11:27 01/12/25 12:00 01/12/25 12:00 Temperature 98.2 F Pulse Rate 89 101 H Respiratory Rate 26 H Blood Pressure 131/67 Pulse Oximetry 98 97 Oxygen Delivery Mechanical Ventilation Fraction of Inspired Oxygen 40 40 01/12/25 12:00 01/12/25 12:00 01/12/25 12:00 Temperature Pulse Rate 95 95 Respiratory Rate 26 H 26 H Blood Pressure Pulse Oximetry 97 Oxygen Delivery Mechanical Ventilation Fraction of Inspired Oxygen 40 01/12/25 12:00 01/12/25 12:00 01/12/25 12:00 Temperature Pulse Rate 95 95 95 Respiratory Rate 26 H Blood Pressure 134/69 132/68 Pulse Oximetry Oxygen Delivery Fraction of Inspired Oxygen 01/12/25 12:00 01/12/25 13:00 01/12/25 13:00 Temperature 98.3 F Pulse Rate 102 H 94 100 Respiratory Rate 26 H 26 H Blood Pressure 108/56 L Pulse Oximetry 98 Oxygen Delivery Fraction of Inspired Oxygen 01/12/25 14:00 01/12/25 14:00 01/12/25 14:00 Temperature 98.3 F Pulse Rate 102 H 99 102 H Respiratory Rate 26 H 26 H Blood Pressure 104/54 L Pulse Oximetry 100 Oxygen Delivery Fraction of Inspired Oxygen 01/12/25 14:00 01/12/25 14:00 01/12/25 14:00 Temperature Pulse Rate 102 H 102 H 102 H Respiratory Rate 26 H Blood Pressure 107/56 L 101/53 L Pulse Oximetry Oxygen Delivery Fraction of Inspired Oxygen 01/12/25 14:29 01/12/25 14:32 01/12/25 14:38 Temperature Pulse Rate 106 H 108 H 108 H Respiratory Rate 26 H 26 H Blood Pressure Pulse Oximetry 94 Oxygen Delivery Mechanical Ventilation Fraction of Inspired Oxygen 40 01/12/25 15:00 01/12/25 15:00 01/12/25 15:37 Temperature 98.3 F Pulse Rate 98 101 H 106 H Respiratory Rate 26 H 26 H Blood Pressure 118/59 L 129/71 Pulse Oximetry 97 Oxygen Delivery Fraction of Inspired Oxygen 01/12/25 15:37 01/12/25 16:00 01/12/25 16:00 Temperature 97.9 F Pulse Rate 106 H 98 Respiratory Rate 26 H Blood Pressure 129/71 104/51 L Pulse Oximetry Oxygen Delivery Fraction of Inspired Oxygen 40 01/12/25 16:00 01/12/25 16:00 01/12/25 16:00 Temperature Pulse Rate 98 98 98 Respiratory Rate 26 H 26 H 26 H Blood Pressure Pulse Oximetry Oxygen Delivery Fraction of Inspired Oxygen 01/12/25 16:00 01/12/25 16:00 01/12/25 16:00 Temperature Pulse Rate 98 98 Respiratory Rate Blood Pressure 104/51 L 104/51 L Pulse Oximetry 97 Oxygen Delivery Mechanical Ventilation Fraction of Inspired Oxygen 40 01/12/25 16:00 01/12/25 17:00 01/12/25 17:05 Temperature 97.8 F Pulse Rate 96 87 87 Respiratory Rate 26 H 26 H Blood Pressure 114/57 L Pulse Oximetry Oxygen Delivery Fraction of Inspired Oxygen 01/12/25 17:05 01/12/25 17:11 01/12/25 18:00 Temperature Pulse Rate 87 92 84 Respiratory Rate 26 H Blood Pressure Pulse Oximetry 97 Oxygen Delivery Mechanical Ventilation Fraction of Inspired Oxygen 40 01/12/25 18:00 01/12/25 18:00 01/12/25 18:00 Temperature 97.7 F Pulse Rate 78 91 91 Respiratory Rate 26 H 26 H 26 H Blood Pressure 117/60 Pulse Oximetry 98 Oxygen Delivery Fraction of Inspired Oxygen 01/12/25 18:00 01/12/25 18:00 01/12/25 18:00 Temperature Pulse Rate 91 91 91 Respiratory Rate 26 H Blood Pressure 117/60 117/60 Pulse Oximetry Oxygen Delivery Fraction of Inspired Oxygen 01/12/25 18:50 01/12/25 19:00 01/12/25 20:00 Temperature 97.7 F 97.8 F Pulse Rate 94 86 89 Respiratory Rate 26 H 26 H Blood Pressure 91/48 L 128/63 120/59 L Pulse Oximetry 99 98 Oxygen Delivery Fraction of Inspired Oxygen 01/12/25 20:00 01/12/25 20:00 01/12/25 20:00 Temperature Pulse Rate 89 89 89 Respiratory Rate 26 H 26 H 26 H Blood Pressure Pulse Oximetry Oxygen Delivery Fraction of Inspired Oxygen 01/12/25 20:00 01/12/25 20:00 01/12/25 20:00 Temperature Pulse Rate 89 89 Respiratory Rate Blood Pressure 120/59 L 120/59 L Pulse Oximetry Oxygen Delivery Fraction of Inspired Oxygen 35 01/12/25 20:00 01/12/25 20:00 01/12/25 20:15 Temperature Pulse Rate 89 89 Respiratory Rate Blood Pressure 114/57 L Pulse Oximetry 100 Oxygen Delivery Mechanical Ventilation Fraction of Inspired Oxygen 35 01/12/25 20:15 01/12/25 20:15 01/12/25 20:32 Temperature Pulse Rate 84 84 92 Respiratory Rate 26 H 26 H Blood Pressure Pulse Oximetry 100 Oxygen Delivery Mechanical Ventilation Fraction of Inspired Oxygen 40 01/12/25 20:45 01/12/25 21:00 01/12/25 22:00 Temperature 98.0 F 97.9 F Pulse Rate 85 84 92 Respiratory Rate 26 H 26 H Blood Pressure 98/48 L 101/53 L 116/57 L Pulse Oximetry 94 96 Oxygen Delivery Fraction of Inspired Oxygen 01/12/25 22:00 01/12/25 22:00 01/12/25 22:00 Temperature Pulse Rate 92 92 92 Respiratory Rate 26 H 26 H Blood Pressure 116/57 L Pulse Oximetry Oxygen Delivery Fraction of Inspired Oxygen 01/12/25 22:00 01/12/25 22:00 01/12/25 22:15 Temperature Pulse Rate 92 92 87 Respiratory Rate 26 H Blood Pressure 116/57 L Pulse Oximetry Oxygen Delivery Fraction of Inspired Oxygen 01/12/25 22:15 01/12/25 22:48 01/12/25 22:48 Temperature Pulse Rate 87 92 92 Respiratory Rate 26 H 26 H 26 H Blood Pressure Pulse Oximetry Oxygen Delivery Fraction of Inspired Oxygen 01/12/25 23:00 01/12/25 23:10 01/13/25 00:00 Temperature 98.1 F 98.4 F Pulse Rate 83 92 79 Respiratory Rate 26 H 26 H Blood Pressure 100/51 L 103/54 L Pulse Oximetry 96 96 96 Oxygen Delivery Mechanical Ventilation Fraction of Inspired Oxygen 35 01/13/25 00:00 01/13/25 00:00 01/13/25 00:00 Temperature Pulse Rate 79 79 79 Respiratory Rate 26 H 26 H 26 H Blood Pressure Pulse Oximetry Oxygen Delivery Fraction of Inspired Oxygen 01/13/25 00:00 01/13/25 00:00 01/13/25 00:00 Temperature Pulse Rate 79 79 Respiratory Rate Blood Pressure 103/54 L 103/54 L Pulse Oximetry Oxygen Delivery Fraction of Inspired Oxygen 35 01/13/25 00:00 01/13/25 00:00 01/13/25 01:00 Temperature 98.5 F Pulse Rate 84 96 Respiratory Rate 26 H Blood Pressure 93/46 L Pulse Oximetry 100 96 Oxygen Delivery Mechanical Ventilation Fraction of Inspired Oxygen 35 01/13/25 01:00 01/13/25 02:00 01/13/25 02:00 Temperature Pulse Rate 96 89 89 Respiratory Rate 27 H 27 H Blood Pressure 93/46 L Pulse Oximetry Oxygen Delivery Fraction of Inspired Oxygen 01/13/25 02:00 01/13/25 02:00 01/13/25 02:00 Temperature Pulse Rate 89 89 89 Respiratory Rate 27 H Blood Pressure 100/51 L 100/51 L Pulse Oximetry Oxygen Delivery Fraction of Inspired Oxygen 01/13/25 02:00 01/13/25 02:00 01/13/25 02:33 Temperature 98.7 F Pulse Rate 86 89 85 Respiratory Rate 27 H Blood Pressure 100/51 L 92/48 L Pulse Oximetry 96 Oxygen Delivery Fraction of Inspired Oxygen 01/13/25 02:33 01/13/25 02:35 01/13/25 02:41 Temperature Pulse Rate 84 86 84 Respiratory Rate Blood Pressure 98/48 L 92/48 L Pulse Oximetry 96 Oxygen Delivery Mechanical Ventilation Fraction of Inspired Oxygen 35 01/13/25 02:42 01/13/25 02:50 01/13/25 02:55 Temperature Pulse Rate 84 76 89 Respiratory Rate 26 H 26 H Blood Pressure 116/58 L Pulse Oximetry Oxygen Delivery Fraction of Inspired Oxygen 01/13/25 03:00 01/13/25 03:10 01/13/25 03:10 Temperature 99.0 F Pulse Rate 71 71 71 Respiratory Rate 23 H 23 H 23 H Blood Pressure 119/61 Pulse Oximetry 95 Oxygen Delivery Fraction of Inspired Oxygen 01/13/25 03:30 01/13/25 03:41 01/13/25 03:41 Temperature Pulse Rate 91 97 97 Respiratory Rate 26 H 26 H Blood Pressure 121/75 Pulse Oximetry Oxygen Delivery Fraction of Inspired Oxygen 01/13/25 03:41 01/13/25 04:00 01/13/25 04:00 Temperature 99.2 F Pulse Rate 96 97 Respiratory Rate 26 H Blood Pressure 92/48 L 110/57 L Pulse Oximetry 97 Oxygen Delivery Fraction of Inspired Oxygen 35 01/13/25 04:00 01/13/25 04:00 01/13/25 04:00 Temperature Pulse Rate 97 97 97 Respiratory Rate 26 H 26 H Blood Pressure 110/57 L Pulse Oximetry Oxygen Delivery Fraction of Inspired Oxygen 01/13/25 04:00 01/13/25 04:00 01/13/25 04:00 Temperature Pulse Rate 97 97 Respiratory Rate 26 H Blood Pressure 110/57 L Pulse Oximetry 100 Oxygen Delivery Mechanical Ventilation Fraction of Inspired Oxygen 35 01/13/25 04:00 01/13/25 05:00 01/13/25 05:02 Temperature 99.5 F Pulse Rate 85 72 84 Respiratory Rate 26 H Blood Pressure 110/58 L Pulse Oximetry 96 96 Oxygen Delivery Mechanical Ventilation Fraction of Inspired Oxygen 35 01/13/25 06:00 01/13/25 06:00 01/13/25 06:00 Temperature Pulse Rate 104 H 104 H 104 H Respiratory Rate 26 H 26 H 26 H Blood Pressure Pulse Oximetry Oxygen Delivery Fraction of Inspired Oxygen 01/13/25 06:00 01/13/25 06:00 01/13/25 06:00 Temperature 99.5 F Pulse Rate 104 H 104 H 104 H Respiratory Rate 26 H Blood Pressure 107/57 L 107/57 L Pulse Oximetry 96 Oxygen Delivery Fraction of Inspired Oxygen 01/13/25 06:45 01/13/25 07:00 01/13/25 08:00 Temperature 99.6 F 99.5 F Pulse Rate 91 82 77 Respiratory Rate 26 H 26 H Blood Pressure 103/55 L 111/57 L 103/53 L Pulse Oximetry 96 97 Oxygen Delivery Fraction of Inspired Oxygen 01/13/25 08:00 01/13/25 08:00 01/13/25 08:00 Temperature Pulse Rate 67 70 Respiratory Rate 26 H 26 H Blood Pressure Pulse Oximetry Oxygen Delivery Fraction of Inspired Oxygen 35 01/13/25 08:00 01/13/25 08:00 01/13/25 08:00 Temperature Pulse Rate 75 75 85 Respiratory Rate 26 H 26 H Blood Pressure 98/51 L Pulse Oximetry Oxygen Delivery Fraction of Inspired Oxygen 01/13/25 08:00 01/13/25 08:00 01/13/25 08:00 Temperature Pulse Rate 82 74 Respiratory Rate Blood Pressure 102/54 L Pulse Oximetry 96 Oxygen Delivery Mechanical Ventilation Fraction of Inspired Oxygen 35 01/13/25 08:00 01/13/25 08:38 01/13/25 08:39 Temperature Pulse Rate 83 79 76 Respiratory Rate 26 H 26 H Blood Pressure 102/53 L Pulse Oximetry Oxygen Delivery Fraction of Inspired Oxygen 01/13/25 08:53 01/13/25 08:55 01/13/25 09:00 Temperature 99.5 F Pulse Rate 89 86 96 Respiratory Rate 26 H 26 H Blood Pressure 105/53 L Pulse Oximetry 96 95 Oxygen Delivery Mechanical Ventilation Fraction of Inspired Oxygen 35 01/13/25 09:58 01/13/25 10:00 01/13/25 10:00 Temperature 99.6 F Pulse Rate 91 92 82 Respiratory Rate 26 H 26 H Blood Pressure 101/56 L Pulse Oximetry 96 Oxygen Delivery Fraction of Inspired Oxygen 01/13/25 10:00 01/13/25 10:00 01/13/25 10:00 Temperature Pulse Rate 87 102 H 82 Respiratory Rate 26 H 26 H Blood Pressure 105/55 L Pulse Oximetry Oxygen Delivery Fraction of Inspired Oxygen Intake/Output Intake/Output: Intake & Output 01/10/25 01/11/25 01/12/25 01/13/25 23:59 23:59 23:59 23:59 Intake Total 3612.6 2676.1 1567.2 1495.3 Output Total 552 648 7265 750 Balance 2862.6 1876.1 -32.8 745.3 Meds/Results Medications: Active Medications Generic Name Dose Route Start Last Admin Trade Name Freq PRN Reason Stop Dose Admin Acetaminophen 650 mg 01/09/25 14:52 Acetaminophen 650 Mg Suppository RECTAL Q6H PRN Mild Pain (1-3) or Fever Acetylcysteine 200 mg 01/09/25 20:00 01/13/25 08:53 Acetylcysteine 20% Inhal Soln 800 Mg/4 Ml Vial INHALATION 200 mg Q6HRT JENNY Administration Albuterol/Ipratropium 3 ml 01/09/25 20:00 01/13/25 08:53 Ipratropium 0.5 Mg/Albuterol Sulfate 2.5 Mg Ampul.Neb 3 Ml INHALATION 3 ml Q6HRT JENNY Administration Dextrose 12.5 gm 01/10/25 00:27 Dextrose 50% 25 Gm/50 Ml Syringe IV PUSH PRN PRN Hypoglycemia Protocol Glucagon 1 mg 01/10/25 00:27 Glucagon For Inj 1 Mg Vial IM PRN PRN Hypoglycemia Protocol Glucose 15 gm 01/10/25 00:27 Glucose Oral Gel 15 Gm Of Glucse In 37.5 Gm Tube PO PRN PRN Hypoglycemia Protocol Heparin Sodium (Porcine) 7,000 units 01/09/25 18:05 01/10/25 23:53 Heparin Sodium 5,000 Units/Ml Vial IV PUSH 7,000 units PRN PRN Administration aPTT less than 55 seconds Heparin Sodium (Porcine) 3,500 units 01/09/25 18:05 01/13/25 06:36 Heparin Sodium 5,000 Units/Ml Vial IV PUSH 3,500 units PRN PRN Administration aPTT 55 - 70 seconds Doxycycline Hyclate 100 mg/ 100 mls @ 100 mls/hr 01/09/25 19:00 01/13/25 06:40 Sodium Chloride IVPB 01/14/25 18:59 100 mls/hr Q12H JENNY Administration Cefepime HCl 1 gm/ Sodium 50 mls @ 100 mls/hr 01/10/25 06:00 01/13/25 06:15 Chloride IVPB 100 mls/hr Q12H JENNY Administration Heparin Sodium/Dextrose 25,000 units in 250 mls @ 17 mls/hr 01/09/25 18:05 06:37 Heparin Sodium/D5w 100 Units/Ml IV CONT 1,700 units/hr .[id number] JENNY 17 mls/hr Titration Protocol 1,700 UNITS/HR Dextrose 1,000 mls @ 100 mls/hr 01/10/25 00:27 Dextrose 5% 1,000 Ml IVPB PRN PRN Hypoglycemia Protocol Midazolam HCl 100 mg in 100 mls @ 0 mls/hr 01/10/25 18:40 01/13/25 10:00 Versed 100 Mg/Ns 100 Ml IV CONT 0 mg/hr .Q0M JENNY 0 mls/hr Titration Protocol 0 MG/HR Fentanyl Citrate 2,500 mcg in 250 mls @ 0 mls/hr 01/11/25 00:05 01/13/25 10:00 Fentanyl 2,500 Mcg/Ns 250 Ml IV CONT 0 mcg/hr .Q0M JENNY 0 mls/hr Titration Protocol 0 MCG/HR Amiodarone HCl/Dextrose 360 mg in 200 mls @ 16.667 mls/hr 01/11/25 07:00 01/13/25 08:00 Nexterone 360 Mg/D5w 200 Ml IV CONT 0.5 mg/min .Q12H JENNY 16.67 mls/hr Infusion 0.5 MG/MIN Norepinephrine Bitartrate 8 mg in 250 mls @ 7.5 mls/hr 01/12/25 10:55 01/13/25 10:00 Levophed 8 Mg/D5w 250 Ml IV CONT 4 mcg/min .Q24H JENNY 7.5 mls/hr Titration Protocol 4 MCG/MIN Propofol 100 mls @ 19.476 mls/hr 01/12/25 10:55 01/13/25 10:00 Diprivan IV CONT 30 mcg/kg/min .Q5H9M JENNY 19.48 mls/hr Titration Protocol 30 MCG/KG/MIN Insulin Aspart 3 - 6 units 01/10/25 06:00 01/13/25 06:16 Insulin Aspart (*Bkc) 100 Units/Ml SUB-Q Not Given Q6HR JENNY Protocol Multi-Ingred Cream/Lotion/Oil/Oint 1 applic 01/12/25 21:00 01/13/25 08:40 Mineral Oil/White Petrolatum Ointment EACH EYE 1 applic Q12HR JENNY Administration Pantoprazole Sodium 40 mg 01/09/25 21:00 01/13/25 08:40 Pantoprazole Sodium Iv 40 Mg Vial IV PUSH 40 mg Q12HR JENNY Administration Polyethylene Glycol 17 gm 01/12/25 10:42 01/13/25 08:47 Polyethylene Glycol 3350 17 Gm Powd.Pack PO 17 gm QAM PRN Administration Constipation Fluticasone/Salmeterol 2 puff 01/09/25 20:00 01/12/25 08:26 Fluticasone/Salmeterol 115-21 Mcg Inhaler 1 Puff INHALATION Not Given Q12HRT JENNY Senna/Docusate Sodium 1 tab 01/12/25 21:00 01/12/25 20:12 Senna/Docusate Sodium Tablet PO 1 tab HS JENNY Administration Sodium Chloride 10 ml 01/09/25 22:00 01/13/25 06:16 Central Line Flush IV PUSH 10 ml Q8HR JENNY Administration Sodium Chloride 20 ml 01/09/25 17:08 Central Line Flush IV PUSH PRN PRN after blood draws Sodium Chloride 10 ml 01/09/25 22:00 01/13/25 06:42 Central Line Flush IV PUSH 10 ml Q8HR JENNY Administration Sodium Chloride 20 ml 01/09/25 17:34 01/11/25 05:29 Central Line Flush IV PUSH 20 ml PRN PRN Administration after blood draws Radiology Results: ITS Impressions Abdomen X-Ray 01/09/25 13:38 IMPRESSION: 1: NG tube tip in the stomach. Chest/Abdomen/Pelvis CTA 01/09/25 13:59 IMPRESSION: 1. Extensive airspace disease of the right upper and lower lobe, consistent with pneumonia. 2: Bilateral pleural effusions, right greater than left. 3: Hypodense right renal masses. Cannot exclude renal cell carcinoma. Consider correlation with MRI abdomen with contrast. 4: Small pericardial effusion. Head CT 01/09/25 14:00 IMPRESSION: 1. No acute intracranial hemorrhage. No mass effect. 2. Probable chronic ischemic white matter change. Renal Ultrasound 01/09/25 19:35 IMPRESSION: No hydronephrosis or renal calculi. Indeterminate focus within the interpolar region of the right kidney, for which contrast enhanced CT or MRI (with renal mass protocol) is suggested for further evaluation. Abdomen Ultrasound 01/09/25 19:44 IMPRESSION: Limited evaluation of the pancreas secondary to overlying bowel gas Hepatomegaly with additional findings of portal hypertension, as detailed above. Chest X-Ray 01/13/25 06:44 Impression: Small right pleural effusion with probable right basilar pulmonary edema/atelectasis. Correlate clinically for pneumonia. Support tubes, as above. Labs Labs: Laboratory Results - last 24 hr 01/12/25 01/12/25 01/12/25 11:41 12:23 12:32 WBC RBC Hgb Hct MCV MCH MCHC RDW Plt Count MPV Immature Gran % (Auto) Neut % (Auto) Lymph % (Auto) Hubbard % (Auto) Eos % (Auto) Baso % (Auto) Lymph # (Auto) Hubbard # (Auto) Eos # (Auto) Baso # (Auto) Abs Immat Gran (auto) Absolute Neuts (auto) Absolute Nucleated RBC Nucleated RBC % PT INR APTT Puncture Site ABG pH ABG pCO2 ABG pO2 ABG PO2/FiO2 Ratio ABG HCO3 ABG O2 Saturation ABG O2 Content ABG Base Excess A-a Gradient Oxyhemoglobin Carboxyhemoglobin Methemoglobin Reduced Hemoglobin Total Hemoglobin O2 Delivery Device O2 Liters/Min Minute Volume Vent Rate Vent Mode FiO2 Tidal Volume PEEP Peak Inspir Pressure Pressure Support Sodium Potassium Chloride Carbon Dioxide Anion Gap BUN Creatinine Estim Creat Clear Calc Estimated GFR Glucose POC Capillary Glucose 153 H 159 H Lactic Acid Calcium Phosphorus Magnesium Total Bilirubin AST ALT Alkaline Phosphatase Total Protein Albumin Triglycerides 93 Random Vancomycin 01/12/25 01/12/25 01/13/25 16:55 17:22 00:12 WBC RBC Hgb Hct MCV MCH MCHC RDW Plt Count MPV Immature Gran % (Auto) Neut % (Auto) Lymph % (Auto) Hubbard % (Auto) Eos % (Auto) Baso % (Auto) Lymph # (Auto) Hubbard # (Auto) Eos # (Auto) Baso # (Auto) Abs Immat Gran (auto) Absolute Neuts (auto) Absolute Nucleated RBC Nucleated RBC % PT INR APTT Puncture Site ABG pH ABG pCO2 ABG pO2 ABG PO2/FiO2 Ratio ABG HCO3 ABG O2 Saturation ABG O2 Content ABG Base Excess A-a Gradient Oxyhemoglobin Carboxyhemoglobin Methemoglobin Reduced Hemoglobin Total Hemoglobin O2 Delivery Device O2 Liters/Min Minute Volume Vent Rate Vent Mode FiO2 Tidal Volume PEEP Peak Inspir Pressure Pressure Support Sodium Potassium Chloride Carbon Dioxide Anion Gap BUN Creatinine Estim Creat Clear Calc Estimated GFR Glucose POC Capillary Glucose 146 H 155 H Lactic Acid Calcium Phosphorus Magnesium Total Bilirubin AST ALT Alkaline Phosphatase Total Protein Albumin Triglycerides Random Vancomycin 17.2 01/13/25 01/13/25 01/13/25 04:01 05:09 06:07 WBC 12.2 H RBC 4.14 L Hgb 12.2 L Hct 40.2 L MCV 97.1 MCH 29.5 MCHC 30.3 L RDW 17.2 H Plt Count 145 L MPV 11.6 H Immature Gran % (Auto) 0.7 H Neut % (Auto) 84.4 H Lymph % (Auto) 7.6 L Hubbard % (Auto) 7.1 Eos % (Auto) 0.1 Baso % (Auto) 0.1 L Lymph # (Auto) 0.92 Hubbard # (Auto) 0.9 H Eos # (Auto) 0.0 Baso # (Auto) 0.0 Abs Immat Gran (auto) 0.09 H Absolute Neuts (auto) 10.3 H Absolute Nucleated RBC 0.310 H Nucleated RBC % 2.5 H PT 15.0 H INR 1.2 APTT 70.3 H Puncture Site Artline ABG pH 7.384 ABG pCO2 42.9 ABG pO2 78.1 L ABG PO2/FiO2 Ratio 2.23 ABG HCO3 25.0 ABG O2 Saturation 95.4 ABG O2 Content 17.4 ABG Base Excess -0.2 A-a Gradient 121.6 Oxyhemoglobin 94.2 Carboxyhemoglobin 0.7 Methemoglobin 0.2 Reduced Hemoglobin 4.9 Total Hemoglobin 13.1 O2 Delivery Device Ventilator O2 Liters/Min Not Reportable Minute Volume Not Reportable Vent Rate 26 Vent Mode Cmv FiO2 35 Tidal Volume 500 PEEP 10 Peak Inspir Pressure Not Reportable Pressure Support Not Reportable Sodium 141 Potassium 3.9 Chloride 108 H Carbon Dioxide 26 Anion Gap 7 BUN 101 H* Creatinine 2.13 H Estim Creat Clear Calc 40 Estimated GFR 31 L Glucose 127 H POC Capillary Glucose 122 H Lactic Acid 1.0 Calcium 8.4 Phosphorus 3.3 Magnesium 3.0 H Total Bilirubin 0.4 AST 217 H ALT 558 H Alkaline Phosphatase 76 Total Protein 5.2 L Albumin 2.7 L Triglycerides Random Vancomycin
--- NOTE | 2025-01-13 11:58 | WPDINTPN ---
Progress Note: A&P Assessment and Plan (1) Acute hypoxic respiratory failure: Code(s): J96.01 - Acute respiratory failure with hypoxia Status: Acute Assessment and Plan: 01/09: Patient presented the ED via EMS after the called 911 as patient has been laying in bed with agonal breathing for the last 2 days, upon arrival of the EMS patient was unresponsive, with agonal breaths. Bag-mask ventilation was started patient was hypotensive, in the ER patient had a GCS of 3 and was emergently intubated. Post intubation patient is on O2 sats were in the upper 60s to 70s. Patient was in a PEEP of 15 and 100% FiO2 -01/09: I was asked to come down to the ER to evaluate the patient, patient was given rocuronium, and revealed emergently to the ICU -remains on CMV mode of ventilation, peep of 12, 55% FiO2, wean FiO2 to maintain O2 sat > 92%, -01/09: emergent bronch was performed in the ICU with significant thick mucus plugs in the right mainstem, right upper lobe and right lower lobe. Suction and cleared most of the secretions with the bronchoscope.O2 sats improved to 95-99% -chest x-ray and ABGs reviewed -ventilator adjusted peep decreased to 10, wean FiO2 to maintain O2 sats > 92% given patient has severe COPD -chest physiotherapy per RT -continue Mucomyst -status post Pulmozyme nebulizer, secretions much improved -continue DuoNebs -continue Symbicort inhaler -status post Solu-Medrol -now sedated with propofol as he was alarming the ventilator, off fentanyl and Versed infusion maintain RASS of 0 to -2, daily SBT and SAT 01/09: CT PE protocol, abdomen and pelvis with no evidence of pulmonary embolism, extensive right upper lobe and lower lobe airspace disease consistent with pneumonia. Bilateral pleural effusion, right greater than left. Hyperdense right renal masses, cannot exclude renal cell carcinoma, consider correlation with MRI abdomen with contrast. Small pericardial (2) Septic shock: Code(s): A41.9 - Sepsis, unspecified organism; R65.21 - Severe sepsis with septic shock Status: Acute Assessment and Plan: Patient with hypotension, acute respiratory failure, lactic acidosis, tachycardia -UA was negative -patient given 2 L IV fluid bolus -continue maintenance IV fluid -lactic acid has normalized -OFF Levophed, will maintain MAP > 65 mm or SBP > 100 mmHg at all times for adequate end organ perfusion -continue cefepime, doxycycline, (01/09). Flagyl discontinued on 01/12 -01/09: Blood culture -Gram-positive cocci -01/09: Sputum culture -Gram-negative bacilli -01/09: Urine Legionella pending -01/11: Repeat blood cultures -preliminary report is negative x2 -01/09: Urine Legionella is pending (3) Pneumonia: Qualifiers: Laterality: right Lung location: unspecified part of lung Pneumonia type: due to unspecified organism Qualified Code(s): J18.9 - Pneumonia, unspecified organism Code(s): J18.9 - Pneumonia, unspecified organism Status: Acute Assessment and Plan: Likely pneumonia on of the right upper and lower lobe -COVID, RSV and influenza were NEGATIVE -continue antibiotics as above -currently on mechanical ventilation (4) Acute exacerbation of chronic obstructive pulmonary disease: Code(s): J44.1 - Chronic obstructive pulmonary disease with (acute) exacerbation Status: Acute Assessment and Plan: History of is COPD with emphysema seen on CT scan of the chest -continue bronchodilators as above (5) Atrial fibrillation: Qualifiers: Atrial fibrillation type: unspecified Qualified Code(s): I48.91 - Unspecified atrial fibrillation Code(s): I48.91 - Unspecified atrial fibrillation Status: Acute Assessment and Plan: History of atrial flutter/fibrillation patient is on apixaban at home, hold apixaban for now -currently in AFib, RVR with heart rates in the 100-110s -continue heparin infusion as patient may require further procedures such thoracentesis -continue amiodarone infusion (6) Polysubstance use disorder: Code(s): F19.90 - Other psychoactive substance use, unspecified, uncomplicated Status: Acute Assessment and Plan: Urine tox screen was positive for cannabis and cocaine -will counseling center manager patient once he is extubated (7) Transaminitis: Code(s): R74.01 - Elevation of levels of liver transaminase levels Status: Acute Assessment and Plan: Significantly elevated LFTs, -RUQ ultrasound shows hepatomegaly with additional findings of portal hypertension -hepatitis panel was negative -could also be related to hypoxia, hypotension/shock -continue to monitor liver function tests (8) Elevated troponin: Code(s): R79.89 - Other specified abnormal findings of blood chemistry Status: Acute Assessment and Plan: Elevated troponin 0.215 -could be related to type 2 infarct, is EKG did not show any ST elevation -troponins were flat, 01/10/2025: Echocardiogram Summary 1. Complete two-dimensional, color flow and Doppler transthoracic echocardiogram is performed. 2. Somewhat challenging exam with patient on ventilator support. 3. Normal left ventricular size with overall good systolic function, paradoxical septal motion consistent with bundle branch block. EF 55-60% 4. Right ventricular enlargement with systolic dysfunction. 5. Mild tricuspid regurgitation, estimated RV systolic pressure 51 mmHg. 6. Sclerotic aortic valve which exhibits preserved leaflet excursion. (9) Current smoker: Code(s): F17.200 - Nicotine dependence, unspecified, uncomplicated Status: Acute Assessment and Plan: Will counseling center manager patient on tobacco cessation once he is extubated (10) CHF (congestive heart failure): Qualifiers: Heart failure type: unspecified Heart failure chronicity: chronic Qualified Code(s): I50.9 - Heart failure, unspecified Code(s): I50.9 - Heart failure, unspecified Status: Acute Assessment and Plan: Patient has a history of CHF, likely HFpEF -proBNP > 29244 Echocardiogram as above, EF of 55%, RVSP 51 mmHg, moderate pulmonary hypertension likely related to COPD -chest x-ray does not show pulmonary edema (11) Electrolyte imbalance: Code(s): E87.8 - Other disorders of electrolyte and fluid balance, not elsewhere classified Status: Acute Assessment and Plan: Hyperkalemia, initial potassium 6.1 in the ER -resolved -potassium stable and normal (12) Acute renal failure: Code(s): N17.9 - Acute kidney failure, unspecified Status: Acute Assessment and Plan: 01/09/2025: Patient presented with creatinine of 3.81 (baseline 1.10-1.23). Multifactorial likely related to infection, sepsis, shock, medications, polysubstance abuse -Adequately fluid-resuscitated -Urine lytes showed prerenal picture -renal ultrasound with no hydronephrosis or calculi, intermittent focus within the interpolar region of the right kidney for which contrast enhanced CT or MRI is suggested -urine eosinophils negative -CPK levels are normal -urine output has been adequate, creatinine trending down, -BUN remains elevated Continue to monitor renal function, electrolytes and urine output Plan DVT prophylaxis: Heparin infusion Stress ulcer prophylaxis: Protonix Nutrition: Tolerating tube feeds. P.r.n. MiraLax, Colace Code Status: DNR Critical Care Time Spent: 32 minutes Will update family 01/10: Discussed with Aura, sister in rounds, patient lives with her and she is the POA. She did state that he was sleeping for 1.5 to 2 days and did not wake up she she called EMS. She also noted thick secretions on his pillowcase. He does smoke marijuana but she is unaware how he got cocaine, he must have gone out and got some cocaine she states. He has stopped using his oxygen a few months back by himself as he stated he does not need it anymore. He used to be on 5 L nasal cannula at home. I discussed with her at length regarding what happened to the patient and now hypoxic he was creatinine to a bronchoscopy emergently to improve his oxygen levels. She did reiterate that he is a DNR. Due to a high probability of clinically significant, life threatening deterioration, the patient required my highest level of preparedness to intervene emergently and I personally spent this critical care time directly and personally managing the patient. This critical care time included obtaining a history; examining the patient; pulse oximetry; ordering and review of studies; arranging urgent treatment with development of a management plan; evaluation of patient's response to treatment; frequent reassessment; and discussions with other providers. It was exclusive of separately billable procedures and treating other patients and teaching time. Please see Assessment and Plan section and the rest of the note for further information on patient assessment and treatment This dictation may have been done utilizing a voice recognition system. Attempts have been made to correct errors. However, there may be uncorrected grammatical, spelling, and recognitions errors present. Subjective Date/time seen: 01/13/25 11:58 Interval history: Reason for consult: Acute hypoxic respiratory failure, altered mental status, pneumonia, acute kidney injury, hyperkalemia, severe sepsis/shock, transaminitis 01/09: Bronchoscopy 01/13/2025: Patient seen and examined the ICU, remains intubated on CMV mode of ventilation, peep of 10, 35% FiO2. Propofol infusion, fentanyl and Versed infusions are off, patient responding well to propofol. Urine output has been adequate, creatinine improving. Lactic acid is normal, LFTs remain elevated. Hemoglobin remained stable. Patient is requiring small amount of Levophed as he is on propofol infusion. Triglycerides of 93 Review of Systems Review of Systems: ROS unobtainable: Yes unobtainable due to endotracheal tube, unobtainable due to medical condition and unobtainable due to mental status Exam Narrative: General: Patient intubated and sedated, in no acute distress at this time HEENT:? Pupils equally reactive, sclera is clear, ETT in place Neck:? Supple Respiratory:? Coarse breath sounds bilaterally R > L, decreased breath sounds at right base, distant breath sounds Cardiac:? Irregularly irregular, tachycardia Abdomen:? Soft, nontender, nondistended, hypoactive bowel sounds Extremities:? Extremities are warm, palpable pedal pulse Neuro:? Patient intubated, sedated, patient does not open his eyes or follow simple commands bilaterally Skin:? No skin lesions noted Psych:? Unable to assess at this time Objective Data Vital Signs Vital Signs: Vital Signs - 24 hr 01/12/25 12:00 01/12/25 12:00 01/12/25 12:00 Temperature 98.2 F Pulse Rate 101 H Respiratory Rate 26 H Blood Pressure 131/67 Pulse Oximetry 97 97 Oxygen Delivery Mechanical Ventilation Fraction of Inspired Oxygen 40 40 01/12/25 12:00 01/12/25 12:00 01/12/25 12:00 Temperature Pulse Rate 95 95 95 Respiratory Rate 26 H 26 H Blood Pressure 134/69 Pulse Oximetry Oxygen Delivery Fraction of Inspired Oxygen 01/12/25 12:00 01/12/25 12:00 01/12/25 12:00 Temperature Pulse Rate 95 95 102 H Respiratory Rate 26 H Blood Pressure 132/68 Pulse Oximetry Oxygen Delivery Fraction of Inspired Oxygen 01/12/25 13:00 01/12/25 13:00 01/12/25 14:00 Temperature 98.3 F Pulse Rate 94 100 102 H Respiratory Rate 26 H 26 H Blood Pressure 108/56 L Pulse Oximetry 98 Oxygen Delivery Fraction of Inspired Oxygen 01/12/25 14:00 01/12/25 14:00 01/12/25 14:00 Temperature 98.3 F Pulse Rate 99 102 H 102 H Respiratory Rate 26 H 26 H 26 H Blood Pressure 104/54 L Pulse Oximetry 100 Oxygen Delivery Fraction of Inspired Oxygen 01/12/25 14:00 01/12/25 14:00 01/12/25 14:29 Temperature Pulse Rate 102 H 102 H 106 H Respiratory Rate 26 H Blood Pressure 107/56 L 101/53 L Pulse Oximetry Oxygen Delivery Fraction of Inspired Oxygen 01/12/25 14:32 01/12/25 14:38 01/12/25 15:00 Temperature 98.3 F Pulse Rate 108 H 108 H 98 Respiratory Rate 26 H 26 H Blood Pressure 118/59 L Pulse Oximetry 94 97 Oxygen Delivery Mechanical Ventilation Fraction of Inspired Oxygen 40 01/12/25 15:00 01/12/25 15:37 01/12/25 15:37 Temperature Pulse Rate 101 H 106 H 106 H Respiratory Rate 26 H Blood Pressure 129/71 129/71 Pulse Oximetry Oxygen Delivery Fraction of Inspired Oxygen 01/12/25 16:00 01/12/25 16:00 01/12/25 16:00 Temperature 97.9 F Pulse Rate 98 98 Respiratory Rate 26 H 26 H Blood Pressure 104/51 L Pulse Oximetry Oxygen Delivery Fraction of Inspired Oxygen 40 01/12/25 16:00 01/12/25 16:00 01/12/25 16:00 Temperature Pulse Rate 98 98 98 Respiratory Rate 26 H 26 H Blood Pressure 104/51 L Pulse Oximetry Oxygen Delivery Fraction of Inspired Oxygen 01/12/25 16:00 01/12/25 16:00 01/12/25 16:00 Temperature Pulse Rate 98 96 Respiratory Rate Blood Pressure 104/51 L Pulse Oximetry 97 Oxygen Delivery Mechanical Ventilation Fraction of Inspired Oxygen 40 01/12/25 17:00 01/12/25 17:05 01/12/25 17:05 Temperature 97.8 F Pulse Rate 87 87 87 Respiratory Rate 26 H 26 H 26 H Blood Pressure 114/57 L Pulse Oximetry Oxygen Delivery Fraction of Inspired Oxygen 01/12/25 17:11 01/12/25 18:00 01/12/25 18:00 Temperature 97.7 F Pulse Rate 92 84 78 Respiratory Rate 26 H Blood Pressure 117/60 Pulse Oximetry 97 98 Oxygen Delivery Mechanical Ventilation Fraction of Inspired Oxygen 40 01/12/25 18:00 01/12/25 18:00 01/12/25 18:00 Temperature Pulse Rate 91 91 91 Respiratory Rate 26 H 26 H 26 H Blood Pressure Pulse Oximetry Oxygen Delivery Fraction of Inspired Oxygen 01/12/25 18:00 01/12/25 18:00 01/12/25 18:50 Temperature Pulse Rate 91 91 94 Respiratory Rate Blood Pressure 117/60 117/60 91/48 L Pulse Oximetry Oxygen Delivery Fraction of Inspired Oxygen 01/12/25 19:00 01/12/25 20:00 01/12/25 20:00 Temperature 97.7 F 97.8 F Pulse Rate 86 89 89 Respiratory Rate 26 H 26 H 26 H Blood Pressure 128/63 120/59 L Pulse Oximetry 99 98 Oxygen Delivery Fraction of Inspired Oxygen 01/12/25 20:00 01/12/25 20:00 01/12/25 20:00 Temperature Pulse Rate 89 89 89 Respiratory Rate 26 H 26 H Blood Pressure 120/59 L Pulse Oximetry Oxygen Delivery Fraction of Inspired Oxygen 01/12/25 20:00 01/12/25 20:00 01/12/25 20:00 Temperature Pulse Rate 89 Respiratory Rate Blood Pressure 120/59 L Pulse Oximetry 100 Oxygen Delivery Mechanical Ventilation Fraction of Inspired Oxygen 35 35 01/12/25 20:00 01/12/25 20:15 01/12/25 20:15 Temperature Pulse Rate 89 89 84 Respiratory Rate Blood Pressure 114/57 L Pulse Oximetry 100 Oxygen Delivery Mechanical Ventilation Fraction of Inspired Oxygen 40 01/12/25 20:15 01/12/25 20:32 01/12/25 20:45 Temperature Pulse Rate 84 92 85 Respiratory Rate 26 H 26 H Blood Pressure 98/48 L Pulse Oximetry Oxygen Delivery Fraction of Inspired Oxygen 01/12/25 21:00 01/12/25 22:00 01/12/25 22:00 Temperature 98.0 F 97.9 F Pulse Rate 84 92 92 Respiratory Rate 26 H 26 H 26 H Blood Pressure 101/53 L 116/57 L Pulse Oximetry 94 96 Oxygen Delivery Fraction of Inspired Oxygen 01/12/25 22:00 01/12/25 22:00 01/12/25 22:00 Temperature Pulse Rate 92 92 92 Respiratory Rate 26 H Blood Pressure 116/57 L 116/57 L Pulse Oximetry Oxygen Delivery Fraction of Inspired Oxygen 01/12/25 22:00 01/12/25 22:15 01/12/25 22:15 Temperature Pulse Rate 92 87 87 Respiratory Rate 26 H 26 H Blood Pressure Pulse Oximetry Oxygen Delivery Fraction of Inspired Oxygen 01/12/25 22:48 01/12/25 22:48 01/12/25 23:00 Temperature 98.1 F Pulse Rate 92 92 83 Respiratory Rate 26 H 26 H 26 H Blood Pressure 100/51 L Pulse Oximetry 96 Oxygen Delivery Fraction of Inspired Oxygen 01/12/25 23:10 01/13/25 00:00 01/13/25 00:00 Temperature 98.4 F Pulse Rate 92 79 79 Respiratory Rate 26 H 26 H Blood Pressure 103/54 L Pulse Oximetry 96 96 Oxygen Delivery Mechanical Ventilation Fraction of Inspired Oxygen 35 01/13/25 00:00 01/13/25 00:00 01/13/25 00:00 Temperature Pulse Rate 79 79 79 Respiratory Rate 26 H 26 H Blood Pressure 103/54 L Pulse Oximetry Oxygen Delivery Fraction of Inspired Oxygen 01/13/25 00:00 01/13/25 00:00 01/13/25 00:00 Temperature Pulse Rate 79 Respiratory Rate Blood Pressure 103/54 L Pulse Oximetry 100 Oxygen Delivery Mechanical Ventilation Fraction of Inspired Oxygen 35 35 01/13/25 00:00 01/13/25 01:00 01/13/25 01:00 Temperature 98.5 F Pulse Rate 84 96 96 Respiratory Rate 26 H Blood Pressure 93/46 L 93/46 L Pulse Oximetry 96 Oxygen Delivery Fraction of Inspired Oxygen 01/13/25 02:00 01/13/25 02:00 01/13/25 02:00 Temperature Pulse Rate 89 89 89 Respiratory Rate 27 H 27 H 27 H Blood Pressure Pulse Oximetry Oxygen Delivery Fraction of Inspired Oxygen 01/13/25 02:00 01/13/25 02:00 01/13/25 02:00 Temperature Pulse Rate 89 89 86 Respiratory Rate Blood Pressure 100/51 L 100/51 L Pulse Oximetry Oxygen Delivery Fraction of Inspired Oxygen 01/13/25 02:00 01/13/25 02:33 01/13/25 02:33 Temperature 98.7 F Pulse Rate 89 85 84 Respiratory Rate 27 H Blood Pressure 100/51 L 92/48 L 98/48 L Pulse Oximetry 96 Oxygen Delivery Fraction of Inspired Oxygen 01/13/25 02:35 01/13/25 02:41 01/13/25 02:42 Temperature Pulse Rate 86 84 84 Respiratory Rate 26 H Blood Pressure 92/48 L Pulse Oximetry 96 Oxygen Delivery Mechanical Ventilation Fraction of Inspired Oxygen 35 01/13/25 02:50 01/13/25 02:55 01/13/25 03:00 Temperature 99.0 F Pulse Rate 76 89 71 Respiratory Rate 26 H 23 H Blood Pressure 116/58 L 119/61 Pulse Oximetry 95 Oxygen Delivery Fraction of Inspired Oxygen 01/13/25 03:10 01/13/25 03:10 01/13/25 03:30 Temperature Pulse Rate 71 71 91 Respiratory Rate 23 H 23 H Blood Pressure 121/75 Pulse Oximetry Oxygen Delivery Fraction of Inspired Oxygen 01/13/25 03:41 01/13/25 03:41 01/13/25 03:41 Temperature Pulse Rate 97 97 96 Respiratory Rate 26 H 26 H Blood Pressure 92/48 L Pulse Oximetry Oxygen Delivery Fraction of Inspired Oxygen 01/13/25 04:00 01/13/25 04:00 01/13/25 04:00 Temperature 99.2 F Pulse Rate 97 97 Respiratory Rate 26 H 26 H Blood Pressure 110/57 L Pulse Oximetry 97 Oxygen Delivery Fraction of Inspired Oxygen 35 01/13/25 04:00 01/13/25 04:00 01/13/25 04:00 Temperature Pulse Rate 97 97 97 Respiratory Rate 26 H Blood Pressure 110/57 L 110/57 L Pulse Oximetry Oxygen Delivery Fraction of Inspired Oxygen 01/13/25 04:00 01/13/25 04:00 01/13/25 04:00 Temperature Pulse Rate 97 85 Respiratory Rate 26 H Blood Pressure Pulse Oximetry 100 Oxygen Delivery Mechanical Ventilation Fraction of Inspired Oxygen 35 01/13/25 05:00 01/13/25 05:02 01/13/25 06:00 Temperature 99.5 F Pulse Rate 72 84 104 H Respiratory Rate 26 H 26 H Blood Pressure 110/58 L Pulse Oximetry 96 96 Oxygen Delivery Mechanical Ventilation Fraction of Inspired Oxygen 35 01/13/25 06:00 01/13/25 06:00 01/13/25 06:00 Temperature Pulse Rate 104 H 104 H 104 H Respiratory Rate 26 H 26 H Blood Pressure 107/57 L Pulse Oximetry Oxygen Delivery Fraction of Inspired Oxygen 01/13/25 06:00 01/13/25 06:00 01/13/25 06:45 Temperature 99.5 F Pulse Rate 104 H 104 H 91 Respiratory Rate 26 H Blood Pressure 107/57 L 103/55 L Pulse Oximetry 96 Oxygen Delivery Fraction of Inspired Oxygen 01/13/25 07:00 01/13/25 08:00 01/13/25 08:00 Temperature 99.6 F 99.5 F Pulse Rate 82 77 Respiratory Rate 26 H 26 H Blood Pressure 111/57 L 103/53 L Pulse Oximetry 96 97 Oxygen Delivery Fraction of Inspired Oxygen 35 01/13/25 08:00 01/13/25 08:00 01/13/25 08:00 Temperature Pulse Rate 67 70 75 Respiratory Rate 26 H 26 H 26 H Blood Pressure Pulse Oximetry Oxygen Delivery Fraction of Inspired Oxygen 01/13/25 08:00 01/13/25 08:00 01/13/25 08:00 Temperature Pulse Rate 75 85 82 Respiratory Rate 26 H Blood Pressure 98/51 L 102/54 L Pulse Oximetry Oxygen Delivery Fraction of Inspired Oxygen 01/13/25 08:00 01/13/25 08:00 01/13/25 08:00 Temperature Pulse Rate 74 83 Respiratory Rate Blood Pressure 102/53 L Pulse Oximetry 96 Oxygen Delivery Mechanical Ventilation Fraction of Inspired Oxygen 35 01/13/25 08:38 01/13/25 08:39 01/13/25 08:53 Temperature Pulse Rate 79 76 89 Respiratory Rate 26 H 26 H Blood Pressure Pulse Oximetry 96 Oxygen Delivery Mechanical Ventilation Fraction of Inspired Oxygen 35 01/13/25 08:55 01/13/25 09:00 01/13/25 09:58 Temperature 99.5 F 99.6 F Pulse Rate 86 96 91 Respiratory Rate 26 H 26 H 26 H Blood Pressure 105/53 L 101/56 L Pulse Oximetry 95 96 Oxygen Delivery Fraction of Inspired Oxygen 01/13/25 10:00 01/13/25 10:00 01/13/25 10:00 Temperature Pulse Rate 92 82 87 Respiratory Rate 26 H Blood Pressure 105/55 L Pulse Oximetry Oxygen Delivery Fraction of Inspired Oxygen 01/13/25 10:00 01/13/25 10:00 01/13/25 10:53 Temperature 99.5 F Pulse Rate 102 H 82 109 H Respiratory Rate 26 H 26 H 26 H Blood Pressure 112/58 L Pulse Oximetry 96 Oxygen Delivery Fraction of Inspired Oxygen 01/13/25 11:38 01/13/25 11:51 Temperature Pulse Rate 101 H 112 H Respiratory Rate Blood Pressure 120/59 L Pulse Oximetry 96 Oxygen Delivery Mechanical Ventilation Fraction of Inspired Oxygen 35 Intake/Output Intake/Output: Intake & Output 01/10/25 01/11/25 01/12/25 01/13/25 23:59 23:59 23:59 23:59 Intake Total 3612.6 2676.1 1567.2 1509.2 Output Total 757 685 7952 750 Balance 2862.6 1876.1 -32.8 759.2 Meds/Results Medications: Active Medications Generic Name Dose Route Start Last Admin Trade Name Freq PRN Reason Stop Dose Admin Acetaminophen 650 mg 01/09/25 14:52 Acetaminophen 650 Mg Suppository RECTAL Q6H PRN Mild Pain (1-3) or Fever Acetylcysteine 200 mg 01/09/25 20:00 01/13/25 08:53 Acetylcysteine 20% Inhal Soln 800 Mg/4 Ml Vial INHALATION 200 mg Q6HRT JENNY Administration Albuterol/Ipratropium 3 ml 01/09/25 20:00 01/13/25 08:53 Ipratropium 0.5 Mg/Albuterol Sulfate 2.5 Mg Ampul.Neb 3 Ml INHALATION 3 ml Q6HRT JENNY Administration Dextrose 12.5 gm 01/10/25 00:27 Dextrose 50% 25 Gm/50 Ml Syringe IV PUSH PRN PRN Hypoglycemia Protocol Glucagon 1 mg 01/10/25 00:27 Glucagon For Inj 1 Mg Vial IM PRN PRN Hypoglycemia Protocol Glucose 15 gm 01/10/25 00:27 Glucose Oral Gel 15 Gm Of Glucse In 37.5 Gm Tube PO PRN PRN Hypoglycemia Protocol Heparin Sodium (Porcine) 7,000 units 01/09/25 18:05 01/10/25 23:53 Heparin Sodium 5,000 Units/Ml Vial IV PUSH 7,000 units PRN PRN Administration aPTT less than 55 seconds Heparin Sodium (Porcine) 3,500 units 01/09/25 18:05 01/13/25 06:36 Heparin Sodium 5,000 Units/Ml Vial IV PUSH 3,500 units PRN PRN Administration aPTT 55 - 70 seconds Doxycycline Hyclate 100 mg/ 100 mls @ 100 mls/hr 01/09/25 19:00 01/13/25 06:40 Sodium Chloride IVPB 01/14/25 18:59 100 mls/hr Q12H JENNY Administration Cefepime HCl 1 gm/ Sodium 50 mls @ 100 mls/hr 01/10/25 06:00 01/13/25 06:15 Chloride IVPB 100 mls/hr Q12H JENNY Administration Heparin Sodium/Dextrose 25,000 units in 250 mls @ 17 mls/hr 01/09/25 18:05 01/13/25 06:37 Heparin Sodium/D5w 100 Units/Ml IV CONT 1,700 units/hr .[id number] JENNY 17 mls/hr Titration Protocol 1,700 UNITS/HR Dextrose 1,000 mls @ 100 mls/hr 01/10/25 00:27 Dextrose 5% 1,000 Ml IVPB PRN PRN Hypoglycemia Protocol Midazolam HCl 100 mg in 100 mls @ 0 mls/hr 01/10/25 18:40 01/13/25 10:00 Versed 100 Mg/Ns 100 Ml IV CONT 0 mg/hr .Q0M JENNY 0 mls/hr Titration Protocol 0 MG/HR Amiodarone HCl/Dextrose 360 mg in 200 mls @ 16.667 mls/hr 01/11/25 07:00 01/13/25 08:00 Nexterone 360 Mg/D5w 200 Ml IV CONT 0.5 mg/min .Q12H JENNY 16.67 mls/hr Infusion 0.5 MG/MIN Norepinephrine Bitartrate 8 mg in 250 mls @ 3.75 mls/hr 01/12/25 10:55 01/13/25 11:51 Levophed 8 Mg/D5w 250 Ml IV CONT 2 mcg/min .Q24H JENNY 3.75 mls/hr Titration Protocol 2 MCG/MIN Propofol 100 mls @ 19.476 mls/hr 01/12/25 10:55 01/13/25 10:00 Diprivan IV CONT 30 mcg/kg/min .Q5H9M JENNY 19.48 mls/hr Titration Protocol 30 MCG/KG/MIN Insulin Aspart 3 - 6 units 01/10/25 06:00 01/13/25 06:16 Insulin Aspart (*Bkc) 100 Units/Ml SUB-Q Not Given Q6HR JENNY Protocol Multi-Ingred Cream/Lotion/Oil/Oint 1 applic 01/12/25 21:00 01/13/25 08:40 Mineral Oil/White Petrolatum Ointment EACH EYE 1 applic Q12HR JENNY Administration Pantoprazole Sodium 40 mg 01/09/25 21:00 01/13/25 08:40 Pantoprazole Sodium Iv 40 Mg Vial IV PUSH 40 mg Q12HR JENNY Administration Polyethylene Glycol 17 gm 01/12/25 10:42 01/13/25 08:47 Polyethylene Glycol 3350 17 Gm Powd.Pack PO 17 gm QAM PRN Administration Constipation Fluticasone/Salmeterol 2 puff 01/09/25 20:00 01/12/25 08:26 Fluticasone/Salmeterol 115-21 Mcg Inhaler 1 Puff INHALATION Not Given Q12HRT JENNY Senna/Docusate Sodium 1 tab 01/12/25 21:00 01/12/25 20:12 Senna/Docusate Sodium Tablet PO 1 tab HS JENNY Administration Sodium Chloride 10 ml 01/09/25 22:00 01/13/25 06:16 Central Line Flush IV PUSH 10 ml Q8HR JENNY Administration Sodium Chloride 20 ml 01/09/25 17:08 Central Line Flush IV PUSH PRN PRN after blood draws Sodium Chloride 10 ml 01/09/25 22:00 01/13/25 06:42 Central Line Flush IV PUSH 10 ml Q8HR JENNY Administration Sodium Chloride 20 ml 01/09/25 17:34 01/11/25 05:29 Central Line Flush IV PUSH 20 ml PRN PRN Administration after blood draws Radiology Results: ITS Impressions Abdomen X-Ray 01/09/25 13:38 IMPRESSION: 1: NG tube tip in the stomach. Chest/Abdomen/Pelvis CTA 01/09/25 13:59 IMPRESSION: 1. Extensive airspace disease of the right upper and lower lobe, consistent with pneumonia. 2: Bilateral pleural effusions, right greater than left. 3: Hypodense right renal masses. Cannot exclude renal cell carcinoma. Consider correlation with MRI abdomen with contrast. 4: Small pericardial effusion. Head CT 01/09/25 14:00 IMPRESSION: 1. No acute intracranial hemorrhage. No mass effect. 2. Probable chronic ischemic white matter change. Renal Ultrasound 01/09/25 19:35 IMPRESSION: No hydronephrosis or renal calculi. Indeterminate focus within the interpolar region of the right kidney, for which contrast enhanced CT or MRI (with renal mass protocol) is suggested for further evaluation. Abdomen Ultrasound 01/09/25 19:44 IMPRESSION: Limited evaluation of the pancreas secondary to overlying bowel gas Hepatomegaly with additional findings of portal hypertension, as detailed above. Chest X-Ray 01/13/25 06:44 Impression: Small right pleural effusion with probable right basilar pulmonary edema/atelectasis. Correlate clinically for pneumonia. Support tubes, as above. Labs Labs: Laboratory Results - last 24 hr 01/12/25 01/12/25 01/12/25 12:23 12:32 16:55 WBC RBC Hgb Hct MCV MCH MCHC RDW Plt Count MPV Immature Gran % (Auto) Neut % (Auto) Lymph % (Auto) [place] % (Auto) Eos % (Auto) Baso % (Auto) Lymph # (Auto) [place] # (Auto) Eos # (Auto) Baso # (Auto) Abs Immat Gran (auto) Absolute Neuts (auto) Absolute Nucleated RBC Nucleated RBC % PT INR APTT Puncture Site ABG pH ABG pCO2 ABG pO2 ABG PO2/FiO2 Ratio ABG HCO3 ABG O2 Saturation ABG O2 Content ABG Base Excess A-a Gradient Oxyhemoglobin Carboxyhemoglobin Methemoglobin Reduced Hemoglobin Total Hemoglobin O2 Delivery Device O2 Liters/Min Minute Volume Vent Rate Vent Mode FiO2 Tidal Volume PEEP Peak Inspir Pressure Pressure Support Sodium Potassium Chloride Carbon Dioxide Anion Gap BUN Creatinine Estim Creat Clear Calc Estimated GFR Glucose POC Capillary Glucose 159 H 146 H Lactic Acid Calcium Phosphorus Magnesium Total Bilirubin AST ALT Alkaline Phosphatase Total Protein Albumin Triglycerides 93 Random Vancomycin 01/12/25 01/13/25 01/13/25 17:22 00:12 04:01 WBC 12.2 H RBC 4.14 L Hgb 12.2 L Hct 40.2 L MCV 97.1 MCH 29.5 MCHC 30.3 L RDW 17.2 H Plt Count 145 L MPV 11.6 H Immature Gran % (Auto) 0.7 H Neut % (Auto) 84.4 H Lymph % (Auto) 7.6 L [place] % (Auto) 7.1 Eos % (Auto) 0.1 Baso % (Auto) 0.1 L Lymph # (Auto) 0.92 [place] # (Auto) 0.9 H Eos # (Auto) 0.0 Baso # (Auto) 0.0 Abs Immat Gran (auto) 0.09 H Absolute Neuts (auto) 10.3 H Absolute Nucleated RBC 0.310 H Nucleated RBC % 2.5 H PT 15.0 H INR 1.2 APTT 70.3 H Puncture Site ABG pH ABG pCO2 ABG pO2 ABG PO2/FiO2 Ratio ABG HCO3 ABG O2 Saturation ABG O2 Content ABG Base Excess A-a Gradient Oxyhemoglobin Carboxyhemoglobin Methemoglobin Reduced Hemoglobin Total Hemoglobin O2 Delivery Device O2 Liters/Min Minute Volume Vent Rate Vent Mode FiO2 Tidal Volume PEEP Peak Inspir Pressure Pressure Support Sodium 141 Potassium 3.9 Chloride 108 H Carbon Dioxide 26 Anion Gap 7 BUN 101 H* Creatinine 2.13 H Estim Creat Clear Calc 40 Estimated GFR 31 L Glucose 127 H POC Capillary Glucose 155 H Lactic Acid 1.0 Calcium 8.4 Phosphorus 3.3 Magnesium 3.0 H Total Bilirubin 0.4 AST 217 H ALT 558 H Alkaline Phosphatase 76 Total Protein 5.2 L Albumin 2.7 L Triglycerides Random Vancomycin 17.2 01/13/25 01/13/25 05:09 06:07 WBC RBC Hgb Hct MCV MCH MCHC RDW Plt Count MPV Immature Gran % (Auto) Neut % (Auto) Lymph % (Auto) [place] % (Auto) Eos % (Auto) Baso % (Auto) Lymph # (Auto) [place] # (Auto) Eos # (Auto) Baso # (Auto) Abs Immat Gran (auto) Absolute Neuts (auto) Absolute Nucleated RBC Nucleated RBC % PT INR APTT Puncture Site Artline ABG pH 7.384 ABG pCO2 42.9 ABG pO2 78.1 L ABG PO2/FiO2 Ratio 2.23 ABG HCO3 25.0 ABG O2 Saturation 95.4 ABG O2 Content 17.4 ABG Base Excess -0.2 A-a Gradient 121.6 Oxyhemoglobin 94.2 Carboxyhemoglobin 0.7 Methemoglobin 0.2 Reduced Hemoglobin 4.9 Total Hemoglobin 13.1 O2 Delivery Device Ventilator O2 Liters/Min Not Reportable Minute Volume Not Reportable Vent Rate 26 Vent Mode Cmv FiO2 35 Tidal Volume 500 PEEP 10 Peak Inspir Pressure Not Reportable Pressure Support Not Reportable Sodium Potassium Chloride Carbon Dioxide Anion Gap BUN Creatinine Estim Creat Clear Calc Estimated GFR Glucose POC Capillary Glucose 122 H Lactic Acid Calcium Phosphorus Magnesium Total Bilirubin AST ALT Alkaline Phosphatase Total Protein Albumin Triglycerides Random Vancomycin Quality VTE Prophylaxis VTE prophylaxis: pharmacologic ordered
[2025-01-13 13:14] LABS: Partial Thromboplastin Time 119.7 Seconds (22.3-36.8)
--- NOTE | 2025-01-13 16:42 | P.PNIM_ITS ---
Progress Note: A&P Assessment and Plan (1) Acute hypoxic respiratory failure: Code(s): J96.01 - Acute respiratory failure with hypoxia Status: Acute Assessment and Plan: 01/09: Patient presented the ED via EMS after the called 911 as patient has been laying in bed with agonal breathing for the last 2 days, upon arrival of the EMS patient was unresponsive, with agonal breaths. Bag-mask ventilation was started patient was hypotensive, in the ER patient had a GCS of 3 and was emergently intubated. Post intubation patient is on O2 sats were in the upper 60s to 70s. Patient was in a PEEP of 15 and 100% FiO2 -01/09: I was asked to come down to the ER to evaluate the patient, patient was given rocuronium, and revealed emergently to the ICU -remains on CMV mode of ventilation, peep of 12, 55% FiO2, wean FiO2 to maintain O2 sat > 92%, -01/09: emergent bronch was performed in the ICU with significant thick mucus plugs in the right mainstem, right upper lobe and right lower lobe. Suction and cleared most of the secretions with the bronchoscope.O2 sats improved to 95-99% -chest x-ray and ABGs reviewed -ventilator adjusted peep decreased to 10, wean FiO2 to maintain O2 sats > 92% given patient has severe COPD -chest physiotherapy per RT -continue Mucomyst -status post Pulmozyme nebulizer, secretions much improved -continue DuoNebs -continue Symbicort inhaler -status post Solu-Medrol -now sedated with propofol as he was alarming the ventilator, off fentanyl and Versed infusion maintain RASS of 0 to -2, daily SBT and SAT 01/09: CT PE protocol, abdomen and pelvis with no evidence of pulmonary embolism, extensive right upper lobe and lower lobe airspace disease consistent with pneumonia. Bilateral pleural effusion, right greater than left. Hyperdense right renal masses, cannot exclude renal cell carcinoma, consider correlation with MRI abdomen with contrast. Small pericardial (2) Septic shock: Code(s): A41.9 - Sepsis, unspecified organism; R65.21 - Severe sepsis with septic shock Status: Acute Assessment and Plan: Patient with hypotension, acute respiratory failure, lactic acidosis, tachycardia -UA was negative -patient given 2 L IV fluid bolus -continue maintenance IV fluid -lactic acid has normalized -OFF Levophed, will maintain MAP > 65 mm or SBP > 100 mmHg at all times for adequate end organ perfusion -continue cefepime, doxycycline, (01/09). Flagyl discontinued on 01/12 -01/09: Blood culture -Gram-positive cocci -01/09: Sputum culture -Gram-negative bacilli -01/09: Urine Legionella pending -01/11: Repeat blood cultures -preliminary report is negative x2 -01/09: Urine Legionella is pending (3) Pneumonia: Qualifiers: Laterality: right Lung location: unspecified part of lung Pneumonia type: due to unspecified organism Qualified Code(s): J18.9 - Pneumonia, unspecified organism Code(s): J18.9 - Pneumonia, unspecified organism Status: Acute Assessment and Plan: Likely pneumonia on of the right upper and lower lobe -COVID, RSV and influenza were NEGATIVE -continue antibiotics as above -currently on mechanical ventilation (4) Acute exacerbation of chronic obstructive pulmonary disease: Code(s): J44.1 - Chronic obstructive pulmonary disease with (acute) exacerbation Status: Acute Assessment and Plan: History of is COPD with emphysema seen on CT scan of the chest -continue bronchodilators as above (5) Atrial fibrillation: Qualifiers: Atrial fibrillation type: unspecified Qualified Code(s): I48.91 - Unspecified atrial fibrillation Code(s): I48.91 - Unspecified atrial fibrillation Status: Acute Assessment and Plan: History of atrial flutter/fibrillation patient is on apixaban at home, hold apixaban for now -currently in AFib, RVR with heart rates in the 100-110s -continue heparin infusion as patient may require further procedures such thoracentesis -continue amiodarone infusion (6) Polysubstance use disorder: Code(s): F19.90 - Other psychoactive substance use, unspecified, uncomplicated Status: Acute Assessment and Plan: Urine tox screen was positive for cannabis and cocaine -will veterans rehabilitation counselor patient once he is extubated (7) Transaminitis: Code(s): R74.01 - Elevation of levels of liver transaminase levels Status: Acute Assessment and Plan: Significantly elevated LFTs, -RUQ ultrasound shows hepatomegaly with additional findings of portal hypertension -hepatitis panel was negative -could also be related to hypoxia, hypotension/shock -continue to monitor liver function tests (8) Elevated troponin: Code(s): R79.89 - Other specified abnormal findings of blood chemistry Status: Acute Assessment and Plan: Elevated troponin 0.215 -could be related to type 2 infarct, is EKG did not show any ST elevation -troponins were flat, 01/10/2025: Echocardiogram Summary 1. Complete two-dimensional, color flow and Doppler transthoracic echocardiogram is performed. 2. Somewhat challenging exam with patient on ventilator support. 3. Normal left ventricular size with overall good systolic function, paradoxical septal motion consistent with bundle branch block. EF 55-60% 4. Right ventricular enlargement with systolic dysfunction. 5. Mild tricuspid regurgitation, estimated RV systolic pressure 51 mmHg. 6. Sclerotic aortic valve which exhibits preserved leaflet excursion. (9) Current smoker: Code(s): F17.200 - Nicotine dependence, unspecified, uncomplicated Status: Acute Assessment and Plan: Will veterans rehabilitation counselor patient on tobacco cessation once he is extubated (10) CHF (congestive heart failure): Qualifiers: Heart failure type: unspecified Heart failure chronicity: chronic Qualified Code(s): I50.9 - Heart failure, unspecified Code(s): I50.9 - Heart failure, unspecified Status: Acute Assessment and Plan: Patient has a history of CHF, likely HFpEF -proBNP > 09272 Echocardiogram as above, EF of 55%, RVSP 51 mmHg, moderate pulmonary hypertension likely related to COPD -chest x-ray does not show pulmonary edema (11) Electrolyte imbalance: Code(s): E87.8 - Other disorders of electrolyte and fluid balance, not elsewhere classified Status: Acute Assessment and Plan: Hyperkalemia, initial potassium 6.1 in the ER -resolved -potassium stable and normal (12) Acute renal failure: Code(s): N17.9 - Acute kidney failure, unspecified Status: Acute Assessment and Plan: 01/09/2025: Patient presented with creatinine of 3.81 (baseline 1.10-1.23). Multifactorial likely related to infection, sepsis, shock, medications, polysubstance abuse -Adequately fluid-resuscitated -Urine lytes showed prerenal picture -renal ultrasound with no hydronephrosis or calculi, intermittent focus within the interpolar region of the right kidney for which contrast enhanced CT or MRI is suggested -urine eosinophils negative -CPK levels are normal -urine output has been adequate, creatinine trending down, -BUN remains elevated Continue to monitor renal function, electrolytes and urine output Subjective Date/time seen: 01/13/25 16:42 Interval history: No acute events overnight. 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 Pupils equally reactive, sclera is clear, ETT in place Neck:? Supple Respiratory:? Coarse breath sounds bilaterally R > L, decreased breath sounds at right base, distant breath sounds Cardiac:? Irregularly irregular, tachycardia Abdomen:? Soft, nontender, nondistended, hypoactive bowel sounds Extremities:? Extremities are warm, palpable pedal pulse Neuro:? Patient intubated, sedated, patient does not open his eyes or follow simple commands bilaterally Skin:? No skin lesions noted Psych:? Unable to assess at this time Const: General: comfortable and no acute distress Other: , male, intubated and sedated. HENMT: Face/Nose/Sinus: Normal nares present Mouth: Yes moist mucous membranes Other: ETT and OG in place Eyes: General: appearance normal, both eyes and all related structures Sclera: sclerae normal Pupils: Equal, round and reactive pupils present EOM: EOMs intact bilaterally Resp: Other: Coarse breath sounds bilaterally, right greater than left. Diminished at bases. Tolerating that well. No distress noted. Cardio: Rate: regular rate Rhythm: abnormal rhythm Other: No murmur or rub. GI: Other: Abdomen soft, nondistended, nontender. Hypoactive bowel sounds in all quadrants. Urinary Catheter: Urinary Catheter: patent and draining Skin: General skin exam: normal color and no rashes or lesions noted Wounds: no wounds Neuro: Cranial nerves: Yes Equal, round and reactive pupils present Other: Intubated and sedated. Does not open eyes or follow commands. Does not withdraw from pain. GCS 3 upon arrival. Extrem: General: normal to inspection Psych: Other: Unable to assess. Objective Data Vital Signs Vital Signs: Vital Signs - 24 hr 01/12/25 17:00 01/12/25 17:05 01/12/25 17:05 Temperature 97.8 F Pulse Rate 87 87 87 Respiratory Rate 26 H 26 H 26 H Blood Pressure 114/57 L Pulse Oximetry Oxygen Delivery Fraction of Inspired Oxygen 01/12/25 17:11 01/12/25 18:00 01/12/25 18:00 Temperature 97.7 F Pulse Rate 92 84 78 Respiratory Rate 26 H Blood Pressure 117/60 Pulse Oximetry 97 98 Oxygen Delivery Mechanical Ventilation Fraction of Inspired Oxygen 40 01/12/25 18:00 01/12/25 18:00 01/12/25 18:00 Temperature Pulse Rate 91 91 91 Respiratory Rate 26 H 26 H 26 H Blood Pressure Pulse Oximetry Oxygen Delivery Fraction of Inspired Oxygen 01/12/25 18:00 01/12/25 18:00 01/12/25 18:50 Temperature Pulse Rate 91 91 94 Respiratory Rate Blood Pressure 117/60 117/60 91/48 L Pulse Oximetry Oxygen Delivery Fraction of Inspired Oxygen 01/12/25 19:00 01/12/25 20:00 01/12/25 20:00 Temperature 97.7 F 97.8 F Pulse Rate 86 89 89 Respiratory Rate 26 H 26 H 26 H Blood Pressure 128/63 120/59 L Pulse Oximetry 99 98 Oxygen Delivery Fraction of Inspired Oxygen 01/12/25 20:00 01/12/25 20:00 01/12/25 20:00 Temperature Pulse Rate 89 89 89 Respiratory Rate 26 H 26 H Blood Pressure 120/59 L Pulse Oximetry Oxygen Delivery Fraction of Inspired Oxygen 01/12/25 20:00 01/12/25 20:00 01/12/25 20:00 Temperature Pulse Rate 89 Respiratory Rate Blood Pressure 120/59 L Pulse Oximetry 100 Oxygen Delivery Mechanical Ventilation Fraction of Inspired Oxygen 35 35 01/12/25 20:00 01/12/25 20:15 01/12/25 20:15 Temperature Pulse Rate 89 89 84 Respiratory Rate Blood Pressure 114/57 L Pulse Oximetry 100 Oxygen Delivery Mechanical Ventilation Fraction of Inspired Oxygen 40 01/12/25 20:15 01/12/25 20:32 01/12/25 20:45 Temperature Pulse Rate 84 92 85 Respiratory Rate 26 H 26 H Blood Pressure 98/48 L Pulse Oximetry Oxygen Delivery Fraction of Inspired Oxygen 01/12/25 21:00 01/12/25 22:00 01/12/25 22:00 Temperature 98.0 F 97.9 F Pulse Rate 84 92 92 Respiratory Rate 26 H 26 H 26 H Blood Pressure 101/53 L 116/57 L Pulse Oximetry 94 96 Oxygen Delivery Fraction of Inspired Oxygen 01/12/25 22:00 01/12/25 22:00 01/12/25 22:00 Temperature Pulse Rate 92 92 92 Respiratory Rate 26 H Blood Pressure 116/57 L 116/57 L Pulse Oximetry Oxygen Delivery Fraction of Inspired Oxygen 01/12/25 22:00 01/12/25 22:15 01/12/25 22:15 Temperature Pulse Rate 92 87 87 Respiratory Rate 26 H 26 H Blood Pressure Pulse Oximetry Oxygen Delivery Fraction of Inspired Oxygen 01/12/25 22:48 01/12/25 22:48 01/12/25 23:00 Temperature 98.1 F Pulse Rate 92 92 83 Respiratory Rate 26 H 26 H 26 H Blood Pressure 100/51 L Pulse Oximetry 96 Oxygen Delivery Fraction of Inspired Oxygen 01/12/25 23:10 01/13/25 00:00 01/13/25 00:00 Temperature 98.4 F Pulse Rate 92 79 79 Respiratory Rate 26 H 26 H Blood Pressure 103/54 L Pulse Oximetry 96 96 Oxygen Delivery Mechanical Ventilation Fraction of Inspired Oxygen 35 01/13/25 00:00 01/13/25 00:00 01/13/25 00:00 Temperature Pulse Rate 79 79 79 Respiratory Rate 26 H 26 H Blood Pressure 103/54 L Pulse Oximetry Oxygen Delivery Fraction of Inspired Oxygen 01/13/25 00:00 01/13/25 00:00 01/13/25 00:00 Temperature Pulse Rate 79 Respiratory Rate Blood Pressure 103/54 L Pulse Oximetry 100 Oxygen Delivery Mechanical Ventilation Fraction of Inspired Oxygen 35 35 01/13/25 00:00 01/13/25 01:00 01/13/25 01:00 Temperature 98.5 F Pulse Rate 84 96 96 Respiratory Rate 26 H Blood Pressure 93/46 L 93/46 L Pulse Oximetry 96 Oxygen Delivery Fraction of Inspired Oxygen 01/13/25 02:00 01/13/25 02:00 01/13/25 02:00 Temperature Pulse Rate 89 89 89 Respiratory Rate 27 H 27 H 27 H Blood Pressure Pulse Oximetry Oxygen Delivery Fraction of Inspired Oxygen 01/13/25 02:00 01/13/25 02:00 01/13/25 02:00 Temperature Pulse Rate 89 89 86 Respiratory Rate Blood Pressure 100/51 L 100/51 L Pulse Oximetry Oxygen Delivery Fraction of Inspired Oxygen 01/13/25 02:00 01/13/25 02:33 01/13/25 02:33 Temperature 98.7 F Pulse Rate 89 85 84 Respiratory Rate 27 H Blood Pressure 100/51 L 92/48 L 98/48 L Pulse Oximetry 96 Oxygen Delivery Fraction of Inspired Oxygen 01/13/25 02:35 01/13/25 02:41 01/13/25 02:42 Temperature Pulse Rate 86 84 84 Respiratory Rate 26 H Blood Pressure 92/48 L Pulse Oximetry 96 Oxygen Delivery Mechanical Ventilation Fraction of Inspired Oxygen 35 01/13/25 02:50 01/13/25 02:55 01/13/25 03:00 Temperature 99.0 F Pulse Rate 76 89 71 Respiratory Rate 26 H 23 H Blood Pressure 116/58 L 119/61 Pulse Oximetry 95 Oxygen Delivery Fraction of Inspired Oxygen 01/13/25 03:10 01/13/25 03:10 01/13/25 03:30 Temperature Pulse Rate 71 71 91 Respiratory Rate 23 H 23 H Blood Pressure 121/75 Pulse Oximetry Oxygen Delivery Fraction of Inspired Oxygen 01/13/25 03:41 01/13/25 03:41 01/13/25 03:41 Temperature Pulse Rate 97 97 96 Respiratory Rate 26 H 26 H Blood Pressure 92/48 L Pulse Oximetry Oxygen Delivery Fraction of Inspired Oxygen 01/13/25 04:00 01/13/25 04:00 01/13/25 04:00 Temperature 99.2 F Pulse Rate 97 97 Respiratory Rate 26 H 26 H Blood Pressure 110/57 L Pulse Oximetry 97 Oxygen Delivery Fraction of Inspired Oxygen 35 01/13/25 04:00 01/13/25 04:00 01/13/25 04:00 Temperature Pulse Rate 97 97 97 Respiratory Rate 26 H Blood Pressure 110/57 L 110/57 L Pulse Oximetry Oxygen Delivery Fraction of Inspired Oxygen 01/13/25 04:00 01/13/25 04:00 01/13/25 04:00 Temperature Pulse Rate 97 85 Respiratory Rate 26 H Blood Pressure Pulse Oximetry 100 Oxygen Delivery Mechanical Ventilation Fraction of Inspired Oxygen 35 01/13/25 05:00 01/13/25 05:02 01/13/25 06:00 Temperature 99.5 F Pulse Rate 72 84 104 H Respiratory Rate 26 H 26 H Blood Pressure 110/58 L Pulse Oximetry 96 96 Oxygen Delivery Mechanical Ventilation Fraction of Inspired Oxygen 35 01/13/25 06:00 01/13/25 06:00 01/13/25 06:00 Temperature Pulse Rate 104 H 104 H 104 H Respiratory Rate 26 H 26 H Blood Pressure 107/57 L Pulse Oximetry Oxygen Delivery Fraction of Inspired Oxygen 01/13/25 06:00 01/13/25 06:00 01/13/25 06:45 Temperature 99.5 F Pulse Rate 104 H 104 H 91 Respiratory Rate 26 H Blood Pressure 107/57 L 103/55 L Pulse Oximetry 96 Oxygen Delivery Fraction of Inspired Oxygen 01/13/25 07:00 01/13/25 08:00 01/13/25 08:00 Temperature 99.6 F 99.5 F Pulse Rate 82 77 Respiratory Rate 26 H 26 H Blood Pressure 111/57 L 103/53 L Pulse Oximetry 96 97 Oxygen Delivery Fraction of Inspired Oxygen 35 01/13/25 08:00 01/13/25 08:00 01/13/25 08:00 Temperature Pulse Rate 67 70 75 Respiratory Rate 26 H 26 H 26 H Blood Pressure Pulse Oximetry Oxygen Delivery Fraction of Inspired Oxygen 01/13/25 08:00 01/13/25 08:00 01/13/25 08:00 Temperature Pulse Rate 75 85 82 Respiratory Rate 26 H Blood Pressure 98/51 L 102/54 L Pulse Oximetry Oxygen Delivery Fraction of Inspired Oxygen 01/13/25 08:00 01/13/25 08:00 01/13/25 08:00 Temperature Pulse Rate 74 83 Respiratory Rate Blood Pressure 102/53 L Pulse Oximetry 96 Oxygen Delivery Mechanical Ventilation Fraction of Inspired Oxygen 35 01/13/25 08:38 01/13/25 08:39 01/13/25 08:53 Temperature Pulse Rate 79 76 89 Respiratory Rate 26 H 26 H Blood Pressure Pulse Oximetry 96 Oxygen Delivery Mechanical Ventilation Fraction of Inspired Oxygen 35 01/13/25 08:55 01/13/25 09:00 01/13/25 09:10 Temperature 99.5 F Pulse Rate 86 96 89 Respiratory Rate 26 H 26 H 26 H Blood Pressure 105/53 L Pulse Oximetry 95 Oxygen Delivery Fraction of Inspired Oxygen 01/13/25 09:58 01/13/25 10:00 01/13/25 10:00 Temperature 99.6 F Pulse Rate 91 92 82 Respiratory Rate 26 H 26 H Blood Pressure 101/56 L Pulse Oximetry 96 Oxygen Delivery Fraction of Inspired Oxygen 01/13/25 10:00 01/13/25 10:00 01/13/25 10:00 Temperature Pulse Rate 87 102 H 82 Respiratory Rate 26 H 26 H Blood Pressure 105/55 L Pulse Oximetry Oxygen Delivery Fraction of Inspired Oxygen 01/13/25 10:00 01/13/25 10:53 01/13/25 11:38 Temperature 99.5 F Pulse Rate 93 109 H 101 H Respiratory Rate 26 H Blood Pressure 106/55 L 112/58 L Pulse Oximetry 96 96 Oxygen Delivery Mechanical Ventilation Fraction of Inspired Oxygen 35 01/13/25 11:51 01/13/25 12:00 01/13/25 12:00 Temperature 99.8 F H Pulse Rate 112 H 113 H 105 H Respiratory Rate 23 H 26 H Blood Pressure 120/59 L 101/54 L Pulse Oximetry 95 Oxygen Delivery Fraction of Inspired Oxygen 01/13/25 12:00 01/13/25 12:00 01/13/25 12:00 Temperature Pulse Rate 105 H 105 H Respiratory Rate 26 H Blood Pressure 101/50 L Pulse Oximetry 95 Oxygen Delivery Mechanical Ventilation Fraction of Inspired Oxygen 35 01/13/25 12:00 01/13/25 12:00 01/13/25 12:40 Temperature Pulse Rate 107 H 84 Respiratory Rate Blood Pressure 89/48 L Pulse Oximetry Oxygen Delivery Fraction of Inspired Oxygen 35 01/13/25 12:44 01/13/25 12:44 01/13/25 12:44 Temperature Pulse Rate 84 84 101 H Respiratory Rate 26 H Blood Pressure 103/52 L 103/52 L Pulse Oximetry Oxygen Delivery Fraction of Inspired Oxygen 01/13/25 12:44 01/13/25 13:00 01/13/25 13:52 Temperature 99.6 F Pulse Rate 101 H 108 H 110 H Respiratory Rate 26 H 26 H Blood Pressure 121/58 L 119/57 L Pulse Oximetry 95 Oxygen Delivery Fraction of Inspired Oxygen 01/13/25 14:00 01/13/25 14:00 01/13/25 14:00 Temperature 99.4 F Pulse Rate 94 88 87 Respiratory Rate 26 H 26 H Blood Pressure 97/50 L Pulse Oximetry 94 Oxygen Delivery Fraction of Inspired Oxygen 01/13/25 14:00 01/13/25 14:30 01/13/25 14:40 Temperature Pulse Rate 89 96 88 Respiratory Rate 24 H Blood Pressure 99/49 L Pulse Oximetry 98 Oxygen Delivery Mechanical Ventilation Fraction of Inspired Oxygen 30 01/13/25 14:43 01/13/25 14:53 01/13/25 15:00 Temperature 99.4 F Pulse Rate 99 86 90 Respiratory Rate 24 H 26 H Blood Pressure 90/42 L 118/58 L Pulse Oximetry 93 Oxygen Delivery Fraction of Inspired Oxygen 01/13/25 16:00 Temperature 98.5 F Pulse Rate 98 Respiratory Rate 21 H Blood Pressure 134/74 Pulse Oximetry 94 Oxygen Delivery Fraction of Inspired Oxygen Intake/Output Intake/Output: Intake & Output 01/10/25 01/11/25 01/12/25 01/13/25 23:59 23:59 23:59 23:59 Intake Total 3612.6 2676.1 1567.2 1826.2 Output Total 816 253 2425 750 Balance 2862.6 1876.1 -32.8 1076.2 Meds/Results Medications: Active Medications Generic Name Dose Route Start Last Admin Trade Name Freq PRN Reason Stop Dose Admin Acetaminophen 650 mg 01/09/25 14:52 Acetaminophen 650 Mg Suppository RECTAL Q6H PRN Mild Pain (1-3) or Fever Acetylcysteine 200 mg 01/09/25 20:00 01/13/25 14:40 Acetylcysteine 20% Inhal Soln 800 Mg/4 Ml Vial INHALATION 200 mg Q6HRT JENNY Administration Albuterol/Ipratropium 3 ml 01/09/25 20:00 01/13/25 14:40 Ipratropium 0.5 Mg/Albuterol Sulfate 2.5 Mg Ampul.Neb 3 Ml INHALATION 3 ml Q6HRT JENNY Administration Dextrose 12.5 gm 01/10/25 00:27 Dextrose 50% 25 Gm/50 Ml Syringe IV PUSH PRN PRN Hypoglycemia Protocol Glucagon 1 mg 01/10/25 00:27 Glucagon For Inj 1 Mg Vial IM PRN PRN Hypoglycemia Protocol Glucose 15 gm 01/10/25 00:27 Glucose Oral Gel 15 Gm Of Glucse In 37.5 Gm Tube PO PRN PRN Hypoglycemia Protocol Heparin Sodium (Porcine) 7,000 units 01/09/25 18:05 01/10/25 23:53 Heparin Sodium 5,000 Units/Ml Vial IV PUSH 7,000 units PRN PRN Administration aPTT less than 55 seconds Heparin Sodium (Porcine) 3,500 units 01/09/25 18:05 01/13/25 06:36 Heparin Sodium 5,000 Units/Ml Vial IV PUSH 3,500 units PRN PRN Administration aPTT 55 - 70 seconds Doxycycline Hyclate 100 mg/ 100 mls @ 100 mls/hr 01/09/25 19:00 01/13/25 06:40 Sodium Chloride IVPB 01/14/25 18:59 100 mls/hr Q12H JENNY Administration Cefepime HCl 1 gm/ Sodium 50 mls @ 100 mls/hr 01/10/25 06:00 01/13/25 06:15 Chloride IVPB 100 mls/hr Q12H JENNY Administration Heparin Sodium/Dextrose 25,000 units in 250 mls @ 15 mls/hr 01/09/25 18:05 01/13/25 13:45 Heparin Sodium/D5w 100 Units/Ml IV CONT 1,500 units/hr .[id number] JENNY 15 mls/hr Titration Protocol 1,500 UNITS/HR Dextrose 1,000 mls @ 100 mls/hr 01/10/25 00:27 Dextrose 5% 1,000 Ml IVPB PRN PRN Hypoglycemia Protocol Amiodarone HCl/Dextrose 360 mg in 200 mls @ 16.667 mls/hr 01/11/25 07:00 01/13/25 14:00 Nexterone 360 Mg/D5w 200 Ml IV CONT 0.5 mg/min .Q12H JENNY 16.67 mls/hr Infusion 0.5 MG/MIN Norepinephrine Bitartrate 8 mg in 250 mls @ 9.375 mls/hr 01/12/25 10:55 01/13/25 14:53 Levophed 8 Mg/D5w 250 Ml IV CONT 5 mcg/min .Q24H JENNY 9.38 mls/hr Titration Protocol 5 MCG/MIN Propofol 100 mls @ 19.476 mls/hr 01/12/25 10:55 01/13/25 14:00 Diprivan IV CONT 30 mcg/kg/min .Q5H9M JENNY 19.48 mls/hr Titration Protocol 30 MCG/KG/MIN Insulin Aspart 3 - 6 units 01/10/25 06:00 01/13/25 12:40 Insulin Aspart (*Bkc) 100 Units/Ml SUB-Q Not Given Q6HR JENNY Protocol Multi-Ingred Cream/Lotion/Oil/Oint 1 applic 01/12/25 21:00 01/13/25 08:40 Mineral Oil/White Petrolatum Ointment EACH EYE 1 applic Q12HR JENNY Administration Pantoprazole Sodium 40 mg 01/09/25 21:00 01/13/25 08:40 Pantoprazole Sodium Iv 40 Mg Vial IV PUSH 40 mg Q12HR JENNY Administration Polyethylene Glycol 17 gm 01/12/25 10:42 01/13/25 08:47 Polyethylene Glycol 3350 17 Gm Powd.Pack PO 17 gm QAM PRN Administration Constipation Fluticasone/Salmeterol 2 puff 01/09/25 20:00 01/12/25 08:26 Fluticasone/Salmeterol 115-21 Mcg Inhaler 1 Puff INHALATION Not Given Q12HRT JENNY Senna/Docusate Sodium 1 tab 01/12/25 21:00 01/12/25 20:12 Senna/Docusate Sodium Tablet PO 1 tab HS JENNY Administration Sodium Chloride 10 ml 01/09/25 22:00 01/13/25 13:52 Central Line Flush IV PUSH 10 ml Q8HR JENNY Administration Sodium Chloride 20 ml 01/09/25 17:08 Central Line Flush IV PUSH PRN PRN after blood draws Sodium Chloride 10 ml 01/09/25 22:00 01/13/25 13:52 Central Line Flush IV PUSH 10 ml Q8HR JENNY Administration Sodium Chloride 20 ml 01/09/25 17:34 01/11/25 05:29 Central Line Flush IV PUSH 20 ml PRN PRN Administration after blood draws Radiology Results: ITS Impressions Abdomen X-Ray 01/09/25 13:38 IMPRESSION: 1: NG tube tip in the stomach. Chest/Abdomen/Pelvis CTA 01/09/25 13:59 IMPRESSION: 1. Extensive airspace disease of the right upper and lower lobe, consistent with pneumonia. 2: Bilateral pleural effusions, right greater than left. 3: Hypodense right renal masses. Cannot exclude renal cell carcinoma. Consider correlation with MRI abdomen with contrast. 4: Small pericardial effusion. Head CT 01/09/25 14:00 IMPRESSION: 1. No acute intracranial hemorrhage. No mass effect. 2. Probable chronic ischemic white matter change. Renal Ultrasound 01/09/25 19:35 IMPRESSION: No hydronephrosis or renal calculi. Indeterminate focus within the interpolar region of the right kidney, for which contrast enhanced CT or MRI (with renal mass protocol) is suggested for further evaluation. Abdomen Ultrasound 01/09/25 19:44 IMPRESSION: Limited evaluation of the pancreas secondary to overlying bowel gas Hepatomegaly with additional findings of portal hypertension, as detailed above. Chest X-Ray 01/13/25 06:44 Impression: Small right pleural effusion with probable right basilar pulmonary edema/atelectasis. Correlate clinically for pneumonia. Support tubes, as above. Labs Labs: Laboratory Results - last 24 hr 01/12/25 01/12/25 01/13/25 16:55 17:22 00:12 WBC RBC Hgb Hct MCV MCH MCHC RDW Plt Count MPV Immature Gran % (Auto) Neut % (Auto) Lymph % (Auto) [place] % (Auto) Eos % (Auto) Baso % (Auto) Lymph # (Auto) [place] # (Auto) Eos # (Auto) Baso # (Auto) Abs Immat Gran (auto) Absolute Neuts (auto) Absolute Nucleated RBC Nucleated RBC % PT INR APTT Puncture Site ABG pH ABG pCO2 ABG pO2 ABG PO2/FiO2 Ratio ABG HCO3 ABG O2 Saturation ABG O2 Content ABG Base Excess A-a Gradient Oxyhemoglobin Carboxyhemoglobin Methemoglobin Reduced Hemoglobin Total Hemoglobin O2 Delivery Device O2 Liters/Min Minute Volume Vent Rate Vent Mode FiO2 Tidal Volume PEEP Peak Inspir Pressure Pressure Support Sodium Potassium Chloride Carbon Dioxide Anion Gap BUN Creatinine Estim Creat Clear Calc Estimated GFR Glucose POC Capillary Glucose 146 H 155 H Lactic Acid Calcium Phosphorus Magnesium Total Bilirubin AST ALT Alkaline Phosphatase Total Protein Albumin Random Vancomycin 17.2 01/13/25 01/13/25 01/13/25 04:01 05:09 06:07 WBC 12.2 H RBC 4.14 L Hgb 12.2 L Hct 40.2 L MCV 97.1 MCH 29.5 MCHC 30.3 L RDW 17.2 H Plt Count 145 L MPV 11.6 H Immature Gran % (Auto) 0.7 H Neut % (Auto) 84.4 H Lymph % (Auto) 7.6 L [place] % (Auto) 7.1 Eos % (Auto) 0.1 Baso % (Auto) 0.1 L Lymph # (Auto) 0.92 [place] # (Auto) 0.9 H Eos # (Auto) 0.0 Baso # (Auto) 0.0 Abs Immat Gran (auto) 0.09 H Absolute Neuts (auto) 10.3 H Absolute Nucleated RBC 0.310 H Nucleated RBC % 2.5 H PT 15.0 H INR 1.2 APTT 70.3 H Puncture Site Artline ABG pH 7.384 ABG pCO2 42.9 ABG pO2 78.1 L ABG PO2/FiO2 Ratio 2.23 ABG HCO3 25.0 ABG O2 Saturation 95.4 ABG O2 Content 17.4 ABG Base Excess -0.2 A-a Gradient 121.6 Oxyhemoglobin 94.2 Carboxyhemoglobin 0.7 Methemoglobin 0.2 Reduced Hemoglobin 4.9 Total Hemoglobin 13.1 O2 Delivery Device Ventilator O2 Liters/Min Not Reportable Minute Volume Not Reportable Vent Rate 26 Vent Mode Cmv FiO2 35 Tidal Volume 500 PEEP 10 Peak Inspir Pressure Not Reportable Pressure Support Not Reportable Sodium 141 Potassium 3.9 Chloride 108 H Carbon Dioxide 26 Anion Gap 7 BUN 101 H* Creatinine 2.13 H Estim Creat Clear Calc 40 Estimated GFR 31 L Glucose 127 H POC Capillary Glucose 122 H Lactic Acid 1.0 Calcium 8.4 Phosphorus 3.3 Magnesium 3.0 H Total Bilirubin 0.4 AST 217 H ALT 558 H Alkaline Phosphatase 76 Total Protein 5.2 L Albumin 2.7 L Random Vancomycin 01/13/25 01/13/25 12:30 12:45 WBC RBC Hgb Hct MCV MCH MCHC RDW Plt Count MPV Immature Gran % (Auto) Neut % (Auto) Lymph % (Auto) [place] % (Auto) Eos % (Auto) Baso % (Auto) Lymph # (Auto) [place] # (Auto) Eos # (Auto) Baso # (Auto) Abs Immat Gran (auto) Absolute Neuts (auto) Absolute Nucleated RBC Nucleated RBC % PT INR APTT 119.7 H Puncture Site ABG pH ABG pCO2 ABG pO2 ABG PO2/FiO2 Ratio ABG HCO3 ABG O2 Saturation ABG O2 Content ABG Base Excess A-a Gradient Oxyhemoglobin Carboxyhemoglobin Methemoglobin Reduced Hemoglobin Total Hemoglobin O2 Delivery Device O2 Liters/Min Minute Volume Vent Rate Vent Mode FiO2 Tidal Volume PEEP Peak Inspir Pressure Pressure Support Sodium Potassium Chloride Carbon Dioxide Anion Gap BUN Creatinine Estim Creat Clear Calc Estimated GFR Glucose POC Capillary Glucose 107 H Lactic Acid Calcium Phosphorus Magnesium Total Bilirubin AST ALT Alkaline Phosphatase Total Protein Albumin Random Vancomycin Quality VTE Prophylaxis VTE prophylaxis: pharmacologic ordered Hospitalist MIPS Advance Care Plan I have confirmed that the patient's Advanced Care Plan is present, code status is documented, or surrogate decision maker is listed in patient medical record.: Yes Medication Reconciliation I have utilized all available resources to obtain, update and review the patients current medications (includes all prescriptions, OTC, herbals, cannabis, and nutritional supplements).: Yes
[2025-01-13] MEDS: PROPOFOL IV EMULSION 100 ML 25.97 MG IV CONT ×2 (16:58→20:53)
[2025-01-13] MEDS: SENNA/DOCUSATE SODIUM TABLET 1 TAB PO (20:00)
[2025-01-13 20:11] LABS: Partial Thromboplastin Time 70.0 Seconds (22.3-36.8)
[2025-01-13] MEDS: NOREPINEPHRINE 8 MG/D5W 250 ML 8 MG/250 ML BAG 7.5 MG IV CONT (21:00)
[2025-01-14] VITALS (70 sets, daily range): BP systolic 75–127; BP diastolic 40–88; PULSE 64–128; RESP 22–29; TEMP 37.3–38; O2SAT 92–99
[2025-01-14] MEDS: PROPOFOL IV EMULSION 100 ML 22.72 MG IV CONT ×2 (00:48→05:14)
[2025-01-14] MEDS: ACETYLCYSTEINE 20% INHAL SOLN 800 MG/4 ML VIAL 200 MG INHALATION (02:37)
[2025-01-14] MEDS: IPRATROPIUM 0.5 MG/ALBUTEROL SULFATE 2.5 MG AMPUL.NEB 3 ML INHALATION (02:37)
[2025-01-14 03:45] LABS: Hematocrit 39.0 % (42.0-52.0); Hemoglobin 11.9 g/dL (14.0-18.0); Immature Granulocyte Percent A 0.9 % (0-0.5); Lymphocytes Absolute Auto 1.01 K/mm3 (0.9-3.2); Mean Corpuscular HGB Conc 30.5 g/dl (32-36); Mean Corpuscular Hemoglobin 29.3 pg (26-34); Mean Corpuscular Volume 96.1 fl (80-100); Nucleated Red Blood Cells Absolute Auto 0.130 K/mm3 (0.0-0.012); Nucleated Red Blood Cells Perc 1.6 % (0.0-0.2); Platelet Count Result 102 k/mm3 (150-375); Red Blood Count 4.06 M/mm3 (4.6-6.20); White Blood Count 8.2 K/mm3 (4.5-10.0)
[2025-01-14 04:00] LABS: INR 1.1; Prothrombin Time 14.2 Seconds (11.1-14.7)
[2025-01-14 04:02] LABS: Partial Thromboplastin Time 106.1 Seconds (22.3-36.8)
[2025-01-14 04:17] LABS: Alanine Aminotransferase 521 U/L (6-50); Albumin Level 2.7 g/dL (3.5-5.1); Alkaline Phosphatase 83 U/L (38-126); Anion Gap 5 mmol/L (4-12); Aspartate Amino Transferase 158 U/L (17-59); Bilirubin,Total 0.4 mg/dL (0.2-1.3); Blood Urea Nitrogen 92 mg/dL (9-20); Calcium 8.6 mg/dL (8.4-10.2); Carbon Dioxide 28 mmol/L (22-30); Chloride 107 mmol/L (98-107); Estimated CRCL calculation 45 ml/min; Estimated Glomerular Filt Rate 36; Glucose 106 mg/dL (65-110); Magnesium 2.8 mg/dL (1.6-2.3); Potassium 4.1 mmol/L (3.4-5.0); Sodium 140 mmol/L (137-145); Total Protein 5.0 g/dL (6.3-8.2)
[2025-01-14 05:02] LABS: Alveolar/Arterial O2 Gradient 91.4 mmHg; Carboxyhemoglobin 0.9 % THb (0-2.0); Fractional Inspired Oxygen 30 %; HCO3 ABG 24.4 mEq/l (22.0-26.0); Methemoglobin ABG 0.2 %THb (0-1.5); Oxygen Content ABG 16.4 %vol (16.0-22.0); Oxygen Saturation ABG 94.5 % (95.0-100.0); PCO2 ABG 41.9 mmHg (35.0-45.0); PO2 ABG 73.3 mmHg (80.0-100.0); PO2 FiO2 Ratio Arterial Blood 2.44 %; Reduced Hemoglobin 5.9 %THb (0-5.0)
[2025-01-14 05:04] LABS: Arterial Blood Gas Ventilator rate 26 /MIN; Site Drawn ARTLINE
[2025-01-14 05:05] LABS: Arterial Blood Gas Tidal Volume 500 ml
[2025-01-14] MEDS: CENTRAL LINE FLUSH 10 ML IV PUSH ×6 (05:17→20:55)
[2025-01-14] MEDS: CEFEPIME 1 GM in SODIUM CHLORIDE 0.9% IV 50 ML 100 ML IVPB ×2 (05:17→17:41)
[2025-01-14] MEDS: DOXYCYCLINE IV 100 MG in SODIUM CHLORIDE 0.9% IV 100 ML IVPB (06:32)
[2025-01-14] MEDS: dexmedeTOMIDine 400 MCG/100 ML 400 MCG/100 ML BAG 5.53 MCG IV CONT (07:57)
[2025-01-14] MEDS: HEPARIN SOD/D5W 100 UNITS/ML 25,000 UNITS/250 ML BAG 15 UNITS IV CONT (07:58)
[2025-01-14] MEDS: MINERAL OIL/WHITE PETROLATUM OINTMENT 1 APPLIC EACH EYE ×2 (07:59→20:54)
[2025-01-14] MEDS: PANTOPRAZOLE SODIUM IV 40 MG VIAL IV PUSH ×2 (07:59→20:54)
--- NOTE | 2025-01-14 09:49 | WPDINTPN ---
Progress Note: A&P Assessment and Plan (1) Acute hypoxic respiratory failure: Code(s): J96.01 - Acute respiratory failure with hypoxia Status: Acute Assessment and Plan: 01/09: Patient presented the ED via EMS after the called 911 as patient has been laying in bed with agonal breathing for the last 2 days, upon arrival of the EMS patient was unresponsive, with agonal breaths. Bag-mask ventilation was started patient was hypotensive, in the ER patient had a GCS of 3 and was emergently intubated. Post intubation patient is on O2 sats were in the upper 60s to 70s. Patient was in a PEEP of 15 and 100% FiO2 -01/09: I was asked to come down to the ER to evaluate the patient, patient was given rocuronium, and revealed emergently to the ICU -remains on CMV mode of ventilation, peep of 12, 55% FiO2, wean FiO2 to maintain O2 sat > 92%, -01/09: emergent bronch was performed in the ICU with significant thick mucus plugs in the right mainstem, right upper lobe and right lower lobe. Suction and cleared most of the secretions with the bronchoscope.O2 sats improved to 95-99% -chest x-ray and ABGs reviewed -ventilator adjusted peep decreased to 8, wean FiO2 to maintain O2 sats > 92% given patient has severe COPD -chest physiotherapy per RT -status post Pulmozyme and Mucomyst, secretions much improved -continue DuoNebs p.r.n. -continue Symbicort inhaler -status post course of Solu-Medrol -currently on propofol. Will start Precedex infusion 01/09: CT PE protocol, abdomen and pelvis with no evidence of pulmonary embolism, extensive right upper lobe and lower lobe airspace disease consistent with pneumonia. Bilateral pleural effusion, right greater than left. Hyperdense right renal masses, cannot exclude renal cell carcinoma, consider correlation with MRI abdomen with contrast. Small pericardial (2) Septic shock: Code(s): A41.9 - Sepsis, unspecified organism; R65.21 - Severe sepsis with septic shock Status: Acute Assessment and Plan: Patient with hypotension, acute respiratory failure, lactic acidosis, tachycardia -UA was negative -patient given 2 L IV fluid bolus -continue maintenance IV fluid -lactic acid has normalized -OFF Levophed, will maintain MAP > 65 mm or SBP > 100 mmHg at all times for adequate end organ perfusion -continue cefepime, doxycycline, (01/09). Flagyl discontinued on 01/12 -01/09: Blood culture -Gram-positive cocci which was Staph epidermis -01/09: Sputum culture -pansensitive Pseudomonas -01/09: Urine Legionella pending -01/11: Repeat blood cultures -preliminary report is negative x2 -01/09: Urine Legionella is pending (3) Pneumonia: Qualifiers: Laterality: right Lung location: unspecified part of lung Pneumonia type: due to unspecified organism Qualified Code(s): J18.9 - Pneumonia, unspecified organism Code(s): J18.9 - Pneumonia, unspecified organism Status: Acute Assessment and Plan: Likely pneumonia on of the right upper and lower lobe -COVID, RSV and influenza were NEGATIVE -continue antibiotics as above -currently on mechanical ventilation (4) Acute exacerbation of chronic obstructive pulmonary disease: Code(s): J44.1 - Chronic obstructive pulmonary disease with (acute) exacerbation Status: Acute Assessment and Plan: History of is COPD with emphysema seen on CT scan of the chest -continue bronchodilators as above (5) Atrial fibrillation: Qualifiers: Atrial fibrillation type: unspecified Qualified Code(s): I48.91 - Unspecified atrial fibrillation Code(s): I48.91 - Unspecified atrial fibrillation Status: Acute Assessment and Plan: History of atrial flutter/fibrillation patient is on apixaban at home, hold apixaban for now -currently in AFib, RVR with heart rates in the 100-110s -continue heparin infusion as patient may require further procedures such thoracentesis -continue amiodarone infusion (6) Polysubstance use disorder: Code(s): F19.90 - Other psychoactive substance use, unspecified, uncomplicated Status: Acute Assessment and Plan: Urine tox screen was positive for cannabis and cocaine Will intellectual property counsel patient once he is extubated (7) Transaminitis: Code(s): R74.01 - Elevation of levels of liver transaminase levels Status: Acute Assessment and Plan: Significantly elevated LFTs, -RUQ ultrasound shows hepatomegaly with additional findings of portal hypertension -hepatitis panel was negative -could also be related to hypoxia, hypotension/shock -continue to monitor liver function tests (8) Elevated troponin: Code(s): R79.89 - Other specified abnormal findings of blood chemistry Status: Acute Assessment and Plan: Elevated troponin 0.215 -could be related to type 2 infarct, is EKG did not show any ST elevation -troponins were flat, 01/10/2025: Echocardiogram Summary 1. Complete two-dimensional, color flow and Doppler transthoracic echocardiogram is performed. 2. Somewhat challenging exam with patient on ventilator support. 3. Normal left ventricular size with overall good systolic function, paradoxical septal motion consistent with bundle branch block. EF 55-60% 4. Right ventricular enlargement with systolic dysfunction. 5. Mild tricuspid regurgitation, estimated RV systolic pressure 51 mmHg. 6. Sclerotic aortic valve which exhibits preserved leaflet excursion. (9) Current smoker: Code(s): F17.200 - Nicotine dependence, unspecified, uncomplicated Status: Acute Assessment and Plan: Will intellectual property counsel patient on tobacco cessation once he is extubated (10) CHF (congestive heart failure): Qualifiers: Heart failure type: unspecified Heart failure chronicity: chronic Qualified Code(s): I50.9 - Heart failure, unspecified Code(s): I50.9 - Heart failure, unspecified Status: Acute Assessment and Plan: Patient has a history of CHF, likely HFpEF -proBNP > 54019 Echocardiogram as above, EF of 55%, RVSP 51 mmHg, moderate pulmonary hypertension likely related to COPD -chest x-ray does not show pulmonary edema (11) Electrolyte imbalance: Code(s): E87.8 - Other disorders of electrolyte and fluid balance, not elsewhere classified Status: Acute Assessment and Plan: Hyperkalemia, initial potassium 6.1 in the ER -resolved -potassium stable and normal (12) Acute renal failure: Code(s): N17.9 - Acute kidney failure, unspecified Status: Acute Assessment and Plan: 01/09/2025: Patient presented with creatinine of 3.81 (baseline 1.10-1.23). Multifactorial likely related to infection, sepsis, shock, medications, polysubstance abuse -Adequately fluid-resuscitated -Urine lytes showed prerenal picture -renal ultrasound with no hydronephrosis or calculi, intermittent focus within the interpolar region of the right kidney for which contrast enhanced CT or MRI is suggested -urine eosinophils negative -CPK levels are normal Continue to monitor renal function, electrolytes and urine output Plan DVT prophylaxis: Heparin infusion Stress ulcer prophylaxis: Protonix Nutrition: Tolerating tube feeds. P.r.n. MiraLax, Colace Code Status: DNR Critical Care Time Spent: 30 minutes Due to a high probability of clinically significant, life threatening deterioration, the patient required my highest level of preparedness to intervene emergently and I personally spent this critical care time directly and personally managing the patient. This critical care time included obtaining a history; examining the patient; pulse oximetry; ordering and review of studies; arranging urgent treatment with development of a management plan; evaluation of patient's response to treatment; frequent reassessment; and discussions with other providers. It was exclusive of separately billable procedures and treating other patients and teaching time. Please see Assessment and Plan section and the rest of the note for further information on patient assessment and treatment This dictation may have been done utilizing a voice recognition system. Attempts have been made to correct errors. However, there may be uncorrected grammatical, spelling, and recognitions errors present. Subjective Date/time seen: 01/14/25 Overnight events reviewed. Afebrile Continues to be on mechanical ventilation 30% FiO2 Continues to be on amiodarone for AFib with RVR Continues to be sedated with propofol Tolerating tube feeds On heparin infusion. Acceptable urine output. Other Vitals acceptable Interval history: Reason for consult: Acute hypoxic respiratory failure, altered mental status, pneumonia, acute kidney injury, hyperkalemia, severe sepsis/shock, transaminitis 01/09: Bronchoscopy Review of Systems Review of Systems: ROS unobtainable: Yes unobtainable due to endotracheal tube, unobtainable due to medical condition and unobtainable due to mental status Exam Narrative: General: Patient intubated and sedated, in no acute distress at this time HEENT:? Pupils equally reactive, sclera is clear, ETT in place Neck:? Supple Respiratory:? Coarse breath sounds bilaterally R > L, decreased breath sounds at right base, distant breath sounds Cardiac:? Irregularly irregular, tachycardia Abdomen:? Soft, nontender, nondistended, hypoactive bowel sounds Extremities:? Extremities are warm, palpable pedal pulse Neuro:? Patient intubated, sedated, patient does not open his eyes or follow simple commands bilaterally Skin:? No skin lesions noted Psych:? Unable to assess at this time Objective Data Vital Signs Vital Signs: Vital Signs - 24 hr 01/13/25 09:58 01/13/25 10:00 01/13/25 10:00 Temperature 37.6 C Pulse Rate 91 92 82 Respiratory Rate 26 H 26 H Blood Pressure 101/56 L Pulse Oximetry 96 Oxygen Delivery Fraction of Inspired Oxygen 01/13/25 10:00 01/13/25 10:00 01/13/25 10:00 Temperature Pulse Rate 87 102 H 82 Respiratory Rate 26 H 26 H Blood Pressure 105/55 L Pulse Oximetry Oxygen Delivery Fraction of Inspired Oxygen 01/13/25 10:00 01/13/25 10:53 01/13/25 11:38 Temperature 37.5 C Pulse Rate 93 109 H 101 H Respiratory Rate 26 H Blood Pressure 106/55 L 112/58 L Pulse Oximetry 96 96 Oxygen Delivery Mechanical Ventilation Fraction of Inspired Oxygen 35 01/13/25 11:51 01/13/25 12:00 01/13/25 12:00 Temperature 37.7 C H Pulse Rate 112 H 113 H 105 H Respiratory Rate 23 H 26 H Blood Pressure 120/59 L 101/54 L Pulse Oximetry 95 Oxygen Delivery Fraction of Inspired Oxygen 01/13/25 12:00 01/13/25 12:00 01/13/25 12:00 Temperature Pulse Rate 105 H 105 H Respiratory Rate 26 H Blood Pressure 101/50 L Pulse Oximetry 95 Oxygen Delivery Mechanical Ventilation Fraction of Inspired Oxygen 35 01/13/25 12:00 01/13/25 12:00 01/13/25 12:40 Temperature Pulse Rate 107 H 84 Respiratory Rate Blood Pressure 89/48 L Pulse Oximetry Oxygen Delivery Fraction of Inspired Oxygen 35 01/13/25 12:44 01/13/25 12:44 01/13/25 12:44 Temperature Pulse Rate 84 84 101 H Respiratory Rate 26 H Blood Pressure 103/52 L 103/52 L Pulse Oximetry Oxygen Delivery Fraction of Inspired Oxygen 01/13/25 12:44 01/13/25 13:00 01/13/25 13:52 Temperature 37.6 C Pulse Rate 101 H 108 H 110 H Respiratory Rate 26 H 26 H Blood Pressure 121/58 L 119/57 L Pulse Oximetry 95 Oxygen Delivery Fraction of Inspired Oxygen 01/13/25 14:00 01/13/25 14:00 01/13/25 14:00 Temperature 37.4 C Pulse Rate 94 88 87 Respiratory Rate 26 H 26 H Blood Pressure 97/50 L Pulse Oximetry 94 Oxygen Delivery Fraction of Inspired Oxygen 01/13/25 14:00 01/13/25 14:30 01/13/25 14:40 Temperature Pulse Rate 89 96 88 Respiratory Rate 24 H Blood Pressure 99/49 L Pulse Oximetry 98 Oxygen Delivery Mechanical Ventilation Fraction of Inspired Oxygen 30 01/13/25 14:43 01/13/25 14:53 01/13/25 15:00 Temperature 37.4 C Pulse Rate 99 86 90 Respiratory Rate 24 H 26 H Blood Pressure 90/42 L 118/58 L Pulse Oximetry 93 Oxygen Delivery Fraction of Inspired Oxygen 01/13/25 16:00 01/13/25 16:00 01/13/25 16:00 Temperature 36.9 C Pulse Rate 98 Respiratory Rate 21 H Blood Pressure 134/74 Pulse Oximetry 94 94 Oxygen Delivery Mechanical Ventilation Fraction of Inspired Oxygen 30 30 01/13/25 16:00 01/13/25 16:00 01/13/25 16:00 Temperature Pulse Rate 106 H 106 H 106 H Respiratory Rate 26 H Blood Pressure 132/67 132/67 Pulse Oximetry Oxygen Delivery Fraction of Inspired Oxygen 01/13/25 16:00 01/13/25 16:41 01/13/25 16:57 Temperature Pulse Rate 109 H 90 93 Respiratory Rate 26 H Blood Pressure Pulse Oximetry 97 Oxygen Delivery Mechanical Ventilation Fraction of Inspired Oxygen 30 01/13/25 16:57 01/13/25 16:58 01/13/25 16:58 Temperature Pulse Rate 92 83 83 Respiratory Rate 26 H 26 H 26 H Blood Pressure Pulse Oximetry Oxygen Delivery Fraction of Inspired Oxygen 01/13/25 17:00 01/13/25 18:00 01/13/25 18:00 Temperature 37.2 C Pulse Rate 87 81 74 Respiratory Rate 26 H 26 H Blood Pressure 103/55 L 115/61 Pulse Oximetry 95 Oxygen Delivery Fraction of Inspired Oxygen 01/13/25 18:00 01/13/25 18:00 01/13/25 18:00 Temperature 37.1 C Pulse Rate 76 84 79 Respiratory Rate 26 H Blood Pressure 113/58 L 106/60 Pulse Oximetry 96 Oxygen Delivery Fraction of Inspired Oxygen 01/13/25 19:00 01/13/25 19:00 01/13/25 20:00 Temperature 37.1 C 37.2 C Pulse Rate 92 92 81 Respiratory Rate 26 H 26 H Blood Pressure 106/55 L 106/55 L 83/48 L Pulse Oximetry 97 96 Oxygen Delivery Fraction of Inspired Oxygen 01/13/25 20:00 01/13/25 20:00 01/13/25 20:00 Temperature Pulse Rate 81 81 81 Respiratory Rate 26 H Blood Pressure 83/48 L 83/48 L Pulse Oximetry Oxygen Delivery Fraction of Inspired Oxygen 01/13/25 20:00 01/13/25 20:00 01/13/25 20:00 Temperature Pulse Rate 75 Respiratory Rate Blood Pressure Pulse Oximetry 96 Oxygen Delivery Mechanical Ventilation Fraction of Inspired Oxygen 30 30 01/13/25 20:15 01/13/25 20:33 01/13/25 20:33 Temperature Pulse Rate 81 88 88 Respiratory Rate 26 H Blood Pressure 116/61 Pulse Oximetry 94 Oxygen Delivery Mechanical Ventilation Fraction of Inspired Oxygen 30 01/13/25 20:53 01/13/25 20:53 01/13/25 21:00 Temperature Pulse Rate 91 91 93 Respiratory Rate 26 H 26 H Blood Pressure 115/59 L Pulse Oximetry Oxygen Delivery Fraction of Inspired Oxygen 01/13/25 21:00 01/13/25 21:00 01/13/25 21:15 Temperature 37.2 C Pulse Rate 93 93 111 H Respiratory Rate 26 H Blood Pressure 115/59 L 115/59 L 125/61 Pulse Oximetry 95 Oxygen Delivery Fraction of Inspired Oxygen 01/13/25 21:30 01/13/25 22:00 01/13/25 22:00 Temperature 37.3 C Pulse Rate 104 H 95 95 Respiratory Rate 26 H Blood Pressure 127/65 99/52 L Pulse Oximetry 95 Oxygen Delivery Fraction of Inspired Oxygen 01/13/25 22:00 01/13/25 22:00 01/13/25 22:00 Temperature Pulse Rate 95 95 95 Respiratory Rate 26 H Blood Pressure 99/52 L 99/52 L Pulse Oximetry Oxygen Delivery Fraction of Inspired Oxygen 01/13/25 22:38 01/13/25 23:00 01/13/25 23:00 Temperature 37.3 C Pulse Rate 82 105 H 105 H Respiratory Rate 26 H 26 H Blood Pressure 120/62 120/62 Pulse Oximetry 96 Oxygen Delivery Fraction of Inspired Oxygen 01/13/25 23:15 01/13/25 23:22 01/13/25 23:45 Temperature Pulse Rate 103 H 84 Respiratory Rate Blood Pressure 125/62 Pulse Oximetry 95 95 Oxygen Delivery Mechanical Ventilation Mechanical Ventilation Fraction of Inspired Oxygen 30 30 01/14/25 00:00 01/14/25 00:00 01/14/25 00:00 Temperature 37.3 C Pulse Rate 94 94 Respiratory Rate 26 H 26 H Blood Pressure 107/56 L Pulse Oximetry 95 Oxygen Delivery Fraction of Inspired Oxygen 30 01/14/25 00:00 01/14/25 00:00 01/14/25 00:00 Temperature Pulse Rate 94 94 92 Respiratory Rate Blood Pressure 107/56 L 107/56 L Pulse Oximetry Oxygen Delivery Fraction of Inspired Oxygen 01/14/25 00:47 01/14/25 00:47 01/14/25 00:48 Temperature Pulse Rate 99 99 90 Respiratory Rate 26 H Blood Pressure 96/54 L 96/54 L Pulse Oximetry Oxygen Delivery Fraction of Inspired Oxygen 01/14/25 00:48 01/14/25 01:00 01/14/25 01:00 Temperature 37.4 C Pulse Rate 90 84 84 Respiratory Rate 26 H 26 H Blood Pressure 93/51 L 93/51 L Pulse Oximetry 95 Oxygen Delivery Fraction of Inspired Oxygen 01/14/25 02:00 01/14/25 02:00 01/14/25 02:00 Temperature 37.3 C Pulse Rate 98 98 98 Respiratory Rate 26 H 26 H Blood Pressure 123/64 123/64 Pulse Oximetry 96 Oxygen Delivery Fraction of Inspired Oxygen 01/14/25 02:00 01/14/25 02:00 01/14/25 02:15 Temperature Pulse Rate 98 98 96 Respiratory Rate Blood Pressure 123/64 122/63 Pulse Oximetry Oxygen Delivery Fraction of Inspired Oxygen 01/14/25 02:37 01/14/25 02:37 01/14/25 03:00 Temperature 37.4 C Pulse Rate 97 97 97 Respiratory Rate 26 H 26 H Blood Pressure 117/60 Pulse Oximetry 96 95 Oxygen Delivery Mechanical Ventilation Fraction of Inspired Oxygen 30 01/14/25 03:00 01/14/25 04:00 01/14/25 04:00 Temperature 37.3 C Pulse Rate 97 104 H 104 H Respiratory Rate 29 H 29 H Blood Pressure 117/60 118/58 L Pulse Oximetry 92 Oxygen Delivery Fraction of Inspired Oxygen 01/14/25 04:00 01/14/25 04:00 01/14/25 04:00 Temperature Pulse Rate 104 H 104 H Respiratory Rate Blood Pressure 118/58 L 118/58 L Pulse Oximetry Oxygen Delivery Fraction of Inspired Oxygen 30 01/14/25 04:00 01/14/25 04:00 01/14/25 04:15 Temperature Pulse Rate 107 H 99 Respiratory Rate Blood Pressure 107/52 L Pulse Oximetry 92 Oxygen Delivery Mechanical Ventilation Fraction of Inspired Oxygen 30 01/14/25 04:48 01/14/25 05:00 01/14/25 05:00 Temperature Pulse Rate 108 H 100 93 Respiratory Rate 26 H 26 H Blood Pressure 101/53 L Pulse Oximetry 93 94 Oxygen Delivery Mechanical Ventilation Fraction of Inspired Oxygen 30 01/14/25 05:14 01/14/25 05:14 01/14/25 05:43 Temperature Pulse Rate 106 H 106 H 92 Respiratory Rate 26 H 26 H 26 H Blood Pressure Pulse Oximetry Oxygen Delivery Fraction of Inspired Oxygen 01/14/25 06:00 01/14/25 06:00 01/14/25 06:00 Temperature Pulse Rate 115 H 115 H 120 H Respiratory Rate 27 H Blood Pressure 120/61 120/61 Pulse Oximetry 95 Oxygen Delivery Fraction of Inspired Oxygen 01/14/25 06:00 01/14/25 06:28 01/14/25 07:00 Temperature 37.4 C Pulse Rate 120 H 120 H 110 H Respiratory Rate 29 H 26 H Blood Pressure 120/61 102/50 L Pulse Oximetry 94 Oxygen Delivery Fraction of Inspired Oxygen 01/14/25 07:00 01/14/25 07:54 01/14/25 07:55 Temperature 37.4 C Pulse Rate 110 H 116 H Respiratory Rate 26 H Blood Pressure 102/50 L 108/55 L Pulse Oximetry 95 Oxygen Delivery Fraction of Inspired Oxygen 30 01/14/25 07:57 01/14/25 07:59 01/14/25 07:59 Temperature Pulse Rate 117 H 128 H 116 H Respiratory Rate 27 H 29 H Blood Pressure 113/58 L Pulse Oximetry Oxygen Delivery Fraction of Inspired Oxygen 01/14/25 07:59 01/14/25 08:00 01/14/25 08:00 Temperature Pulse Rate 116 H 126 H Respiratory Rate Blood Pressure 113/58 L 106/57 L Pulse Oximetry 95 Oxygen Delivery Mechanical Ventilation Fraction of Inspired Oxygen 30 01/14/25 08:00 01/14/25 08:20 01/14/25 08:30 Temperature Pulse Rate 111 H 102 H 101 H Respiratory Rate 25 H Blood Pressure Pulse Oximetry 95 Oxygen Delivery Mechanical Ventilation Fraction of Inspired Oxygen 30 01/14/25 08:30 01/14/25 08:31 08/18/25 09:00 Temperature 37.4 C Pulse Rate 100 101 H 107 H Respiratory Rate 27 H 25 H Blood Pressure 84/43 L 115/60 Pulse Oximetry 94 Oxygen Delivery Fraction of Inspired Oxygen Intake/Output Intake/Output: Intake & Output 01/11/25 01/12/25 01/13/25 01/14/25 23:59 23:59 23:59 23:59 Intake Total 2676.1 1817.2 3448.6 1176.1 Output Total 800 1600 1600 850 Balance 1876.1 217.2 1848.6 326.1 Meds/Results Medications: Active Medications Generic Name Dose Route Start Last Admin Trade Name Freq PRN Reason Stop Dose Admin Acetaminophen 650 mg 01/09/25 14:52 Acetaminophen 650 Mg Suppository RECTAL Q6H PRN Mild Pain (1-3) or Fever Albuterol/Ipratropium 3 ml 01/14/25 07:39 Ipratropium 0.5 Mg/Albuterol Sulfate 2.5 Mg Ampul.Neb 3 Ml INHALATION Q6HRT PRN Wheezing Dextrose 12.5 gm 01/10/25 00:27 Dextrose 50% 25 Gm/50 Ml Syringe IV PUSH PRN PRN Hypoglycemia Protocol Glucagon 1 mg 01/10/25 00:27 Glucagon For Inj 1 Mg Vial IM PRN PRN Hypoglycemia Protocol Glucose 15 gm 01/10/25 00:27 Glucose Oral Gel 15 Gm Of Glucse In 37.5 Gm Tube PO PRN PRN Hypoglycemia Protocol Heparin Sodium (Porcine) 7,000 units 01/09/25 18:05 01/10/25 23:53 Heparin Sodium 5,000 Units/Ml Vial IV PUSH 7,000 units PRN PRN Administration aPTT less than 55 seconds Heparin Sodium (Porcine) 3,500 units 01/09/25 18:05 01/13/25 20:59 Heparin Sodium 5,000 Units/Ml Vial IV PUSH 3,500 units PRN PRN Administration aPTT 55 - 70 seconds Doxycycline Hyclate 100 mg/ 100 mls @ 100 mls/hr 01/09/25 19:00 01/14/25 06:32 Sodium Chloride IVPB 01/14/25 18:59 100 mls/hr Q12H JENNY Administration Cefepime HCl 1 gm/ Sodium 50 mls @ 100 mls/hr 01/10/25 06:00 01/14/25 05:47 Chloride IVPB Infused Q12H JENNY Infusion Heparin Sodium/Dextrose 25,000 units in 250 mls @ 15 mls/hr 01/09/25 18:05 01/14/25 07:58 Heparin Sodium/D5w 100 Units/Ml IV CONT 1,500 units/hr .[id number] JENNY 15 mls/hr Administration Protocol 1,500 UNITS/HR Dextrose 1,000 mls @ 100 mls/hr 01/10/25 00:27 Dextrose 5% 1,000 Ml IVPB PRN PRN Hypoglycemia Protocol Amiodarone HCl/Dextrose 360 mg in 200 mls @ 16.667 mls/hr 01/11/25 07:00 01/14/25 07:59 Nexterone 360 Mg/D5w 200 Ml IV CONT 0.5 mg/min .Q12H JENNY 16.67 mls/hr Administration 0.5 MG/MIN Norepinephrine Bitartrate 8 mg in 250 mls @ 9.375 mls/hr 01/12/25 10:55 01/14/25 08:30 Levophed 8 Mg/D5w 250 Ml IV CONT 5 mcg/min .Q24H JENNY 9.38 mls/hr Titration Protocol 5 MCG/MIN Propofol 100 mls @ 12.984 mls/hr 01/12/25 10:55 01/14/25 08:30 Diprivan IV CONT 20 mcg/kg/min .Q7H43M JENNY 12.98 mls/hr Titration Protocol 20 MCG/KG/MIN Dexmedetomidine HCl 400 mcg in 100 mls @ 11.06 mls/hr 01/14/25 07:45 01/14/25 08:31 Precedex 400 Mcg/100 Ml IV CONT 0.4 mcg/kg/hr .Q9H3M JENNY 11.06 mls/hr Titration Protocol 0.4 MCG/KG/HR Insulin Aspart 3 - 6 units 01/10/25 06:00 01/14/25 05:00 Insulin Aspart (*Bkc) 100 Units/Ml SUB-Q Not Given Q6HR JENNY Protocol Multi-Ingred Cream/Lotion/Oil/Oint 1 applic 01/12/25 21:00 01/14/25 07:59 Mineral Oil/White Petrolatum Ointment EACH EYE 1 applic Q12HR JENNY Administration Pantoprazole Sodium 40 mg 01/09/25 21:00 01/14/25 07:59 Pantoprazole Sodium Iv 40 Mg Vial IV PUSH 40 mg Q12HR JENNY Administration Polyethylene Glycol 17 gm 01/12/25 10:42 01/13/25 08:47 Polyethylene Glycol 3350 17 Gm Powd.Pack PO 17 gm QAM PRN Administration Constipation Fluticasone/Salmeterol 2 puff 01/09/25 20:00 01/13/25 21:03 Fluticasone/Salmeterol 115-21 Mcg Inhaler 1 Puff INHALATION Not Given Q12HRT JENNY Senna/Docusate Sodium 1 tab 01/12/25 21:00 01/13/25 20:00 Senna/Docusate Sodium Tablet PO 1 tab HS JENNY Administration Sodium Chloride 10 ml 01/09/25 22:00 01/14/25 05:17 Central Line Flush IV PUSH 10 ml Q8HR JENNY Administration Sodium Chloride 20 ml 01/09/25 17:08 Central Line Flush IV PUSH PRN PRN after blood draws Sodium Chloride 10 ml 01/09/25 22:00 01/14/25 05:17 Central Line Flush IV PUSH 10 ml Q8HR JENNY Administration Sodium Chloride 20 ml 01/09/25 17:34 01/11/25 05:29 Central Line Flush IV PUSH 20 ml PRN PRN Administration after blood draws Radiology Results: ITS Impressions Abdomen X-Ray 01/09/25 13:38 IMPRESSION: 1: NG tube tip in the stomach. Chest/Abdomen/Pelvis CTA 01/09/25 13:59 IMPRESSION: 1. Extensive airspace disease of the right upper and lower lobe, consistent with pneumonia. 2: Bilateral pleural effusions, right greater than left. 3: Hypodense right renal masses. Cannot exclude renal cell carcinoma. Consider correlation with MRI abdomen with contrast. 4: Small pericardial effusion. Head CT 01/09/25 14:00 IMPRESSION: 1. No acute intracranial hemorrhage. No mass effect. 2. Probable chronic ischemic white matter change. Renal Ultrasound 01/09/25 19:35 IMPRESSION: No hydronephrosis or renal calculi. Indeterminate focus within the interpolar region of the right kidney, for which contrast enhanced CT or MRI (with renal mass protocol) is suggested for further evaluation. Abdomen Ultrasound 01/09/25 19:44 IMPRESSION: Limited evaluation of the pancreas secondary to overlying bowel gas Hepatomegaly with additional findings of portal hypertension, as detailed above. Chest X-Ray 01/14/25 08:41 IMPRESSION: 1. No significant change in a likely small right pleural effusion with atelectasis and/or pneumonia in the right lower lung zone. Labs Labs: Laboratory Results - last 24 hr 01/13/25 01/13/25 01/13/25 12:30 12:45 18:03 WBC RBC Hgb Hct MCV MCH MCHC RDW Plt Count MPV Immature Gran % (Auto) Neut % (Auto) Lymph % (Auto) Dent % (Auto) Eos % (Auto) Baso % (Auto) Lymph # (Auto) Dent # (Auto) Eos # (Auto) Baso # (Auto) Abs Immat Gran (auto) Absolute Neuts (auto) Absolute Nucleated RBC Nucleated RBC % PT INR APTT 119.7 H Puncture Site ABG pH ABG pCO2 ABG pO2 ABG PO2/FiO2 Ratio ABG HCO3 ABG O2 Saturation ABG O2 Content ABG Base Excess A-a Gradient Oxyhemoglobin Carboxyhemoglobin Methemoglobin Reduced Hemoglobin Total Hemoglobin O2 Delivery Device O2 Liters/Min Minute Volume Vent Rate Vent Mode FiO2 Tidal Volume PEEP Peak Inspir Pressure Pressure Support Sodium Potassium Chloride Carbon Dioxide Anion Gap BUN Creatinine Estim Creat Clear Calc Estimated GFR Glucose POC Capillary Glucose 107 H 109 H Lactic Acid Calcium Phosphorus Magnesium Total Bilirubin AST ALT Alkaline Phosphatase Total Protein Albumin 01/13/25 01/13/25 01/13/25 18:32 19:43 23:11 WBC RBC Hgb Hct MCV MCH MCHC RDW Plt Count MPV Immature Gran % (Auto) Neut % (Auto) Lymph % (Auto) Dent % (Auto) Eos % (Auto) Baso % (Auto) Lymph # (Auto) Dent # (Auto) Eos # (Auto) Baso # (Auto) Abs Immat Gran (auto) Absolute Neuts (auto) Absolute Nucleated RBC Nucleated RBC % PT INR APTT 70.0 H Puncture Site ABG pH ABG pCO2 ABG pO2 ABG PO2/FiO2 Ratio ABG HCO3 ABG O2 Saturation ABG O2 Content ABG Base Excess A-a Gradient Oxyhemoglobin Carboxyhemoglobin Methemoglobin Reduced Hemoglobin Total Hemoglobin O2 Delivery Device O2 Liters/Min Minute Volume Vent Rate Vent Mode FiO2 Tidal Volume PEEP Peak Inspir Pressure Pressure Support Sodium Potassium Chloride Carbon Dioxide Anion Gap BUN Creatinine Estim Creat Clear Calc Estimated GFR Glucose POC Capillary Glucose 111 H 109 H Lactic Acid Calcium Phosphorus Magnesium Total Bilirubin AST ALT Alkaline Phosphatase Total Protein Albumin 01/14/25 01/14/25 03:36 04:33 WBC 8.2 RBC 4.06 L Hgb 11.9 L Hct 39.0 L MCV 96.1 MCH 29.3 MCHC 30.5 L RDW 17.3 H Plt Count 102 L MPV 11.4 H Immature Gran % (Auto) 0.9 H Neut % (Auto) 77.2 H Lymph % (Auto) 12.3 L Dent % (Auto) 8.3 Eos % (Auto) 1.3 Baso % (Auto) 0.0 L Lymph # (Auto) 1.01 Dent # (Auto) 0.7 H Eos # (Auto) 0.1 Baso # (Auto) 0.0 Abs Immat Gran (auto) 0.07 H Absolute Neuts (auto) 6.3 Absolute Nucleated RBC 0.130 H Nucleated RBC % 1.6 H PT 14.2 INR 1.1 APTT 106.1 H Puncture Site Artline ABG pH 7.383 ABG pCO2 41.9 ABG pO2 73.3 L ABG PO2/FiO2 Ratio 2.44 ABG HCO3 24.4 ABG O2 Saturation 94.5 L ABG O2 Content 16.4 ABG Base Excess -0.7 A-a Gradient 91.4 Oxyhemoglobin 93.0 Carboxyhemoglobin 0.9 Methemoglobin 0.2 Reduced Hemoglobin 5.9 H Total Hemoglobin 12.5 O2 Delivery Device Ventilator O2 Liters/Min Not Reportable Minute Volume Not Reportable Vent Rate 26 Vent Mode Cmv FiO2 30 Tidal Volume 500 PEEP 10 Peak Inspir Pressure Not Reportable Pressure Support Not Reportable Sodium 140 Potassium 4.1 Chloride 107 Carbon Dioxide 28 Anion Gap 5 BUN 92 H Creatinine 1.87 H Estim Creat Clear Calc 45 Estimated GFR 36 L Glucose 106 POC Capillary Glucose Lactic Acid 0.7 Calcium 8.6 Phosphorus 3.4 Magnesium 2.8 H Total Bilirubin 0.4 AST 158 H ALT 521 H Alkaline Phosphatase 83 Total Protein 5.0 L Albumin 2.7 L Quality VTE Prophylaxis VTE prophylaxis: pharmacologic ordered
--- NOTE | 2025-01-14 09:51 | P.PNNP_ITS ---
Progress Note: A&P Assessment and Plan (1) Acute kidney injury: Code(s): N17.9 - Acute kidney failure, unspecified Status: Acute Assessment and Plan: * slow improvement noted * as noted on admission * normal creatinine on hospital discharge in June 2024 * suspect ATN with multifactorial etiology: * infection/sepsis * hemodynamic instability/shock * prerenal factors * ARB + diuretic use prior to admission * polysubstance abuse * other (?) * contrast exposure (CTA C/A/P on 01/09) may hamper/delay recovery * evaluation to date noted: * urine electrolytes pre-renal * CT of abdomen with hypodense right renal masses * renal u/s with no hydronephrosis or renal calculi; indeterminate focus within the interpolar region of the right kidney * urine eosinophils negative * UA without evidence of infection * CPK normal * follow trend of repeat labs and UOP (2) Septic shock: Code(s): A41.9 - Sepsis, unspecified organism; R65.21 - Severe sepsis with septic shock Status: Acute Assessment and Plan: * as noted on presentation with hypotension, acute respiratory failure, lactic acidosis, tachycardia, and DERECK * presumably secondary to pneumonia * s/p 2 L IV fluid bolus and on maintenance IV fluid * lactic acid has normalized * on/off vasopressor support * culture data noted: * blood culture negative * urine culture pending * sputum culture with Pseudomonas * on antibiotics * continue current therapy (3) Acute hypoxic respiratory failure: Code(s): J96.01 - Acute respiratory failure with hypoxia Status: Acute Assessment and Plan: * as noted on presentation to the ER * intubated in ER on admission (due to hypoxia and agonal breathing) * complicated by mucus plugging of right main stem bronchus requiring bronchoscopy with suctioning of secretions * CT imaging noted * no evidence of pulmonary embolism, extensive right upper lobe and lower lobe airspace disease consistent with pneumonia; ilateral pleural effusion, right greater than left * Echo noted: * normal left ventricular size with overall good systolic function, paradoxical septal motion consistent with bundle branch block * EF 55-60% * right ventricular enlargement with systolic dysfunction * mild tricuspid regurgitation, estimated RV systolic pressure 51 mmHg * sclerotic aortic valve which exhibits preserved leaflet excursion * on ventilator support * chest physiotherapy * on nebulizer therapy, mucomyst, and pulmozyme * further complicated by known history of COPD (4) Pneumonia: Qualifiers: Laterality: right Lung location: unspecified part of lung Pneumonia type: due to unspecified organism Qualified Code(s): J18.9 - Pneumonia, unspecified organism Code(s): J18.9 - Pneumonia, unspecified organism Status: Acute Assessment and Plan: * as suggested by imaging to date * COVID, RSV and influenza testing negative * Pseudomonas noted in sputum culturewww * continue antibiotics * follow respiratory status (5) Acute exacerbation of chronic obstructive pulmonary disease: Code(s): J44.1 - Chronic obstructive pulmonary disease with (acute) exacerbation Status: Acute Assessment and Plan: * known history of is COPD with emphysema seen on CT scan of the chest * likely precipitated by pneumonia * on bronchodilator therapy (6) Atrial fibrillation: Qualifiers: Atrial fibrillation type: unspecified Qualified Code(s): I48.91 - Unspecified atrial fibrillation Code(s): I48.91 - Unspecified atrial fibrillation Status: Acute Assessment and Plan: * rate control strategy * on heparin gtt for anticoagulation (7) Transaminitis: Code(s): R74.01 - Elevation of levels of liver transaminase levels Status: Acute Assessment and Plan: * significantly elevated LFTs on admission * due to hypotension/shock and hypotension on presentation (?) * RUQ ultrasound shows hepatomegaly with additional findings of portal hypertension * hepatitis panel was negative * follow trend (8) Polysubstance use disorder: Code(s): F19.90 - Other psychoactive substance use, unspecified, uncomplicated Status: Acute Assessment and Plan: * urine tox screen was positive for cannabis and cocaine Will continue to follow. L Subjective Date/time seen: 01/14/25 09:51 Interval history: Follow-up for acute kidney injury/acute renal failure. Chart reviewed since last seen -- remains intubated/sedated and on mechanical ventilation; renal function/creatinine continues to slowly improve with reasonable urine output although BUN is quite elevated (but downtrending); no other issues/events overnight or earlier this morning. Exam 2 Narrative: General: ill appearing male intubated/sedated and on mechanical ventilation Heart: normal S1 and S2; no rub Lungs: coarse breath sounds Abdomen: soft, nontender, nondistended, decreased bowel sounds Extremities: no cyanosis or clubbimh; no edema Skin: warm and intact Objective Data Vital Signs Vital Signs: Vital Signs Temp Pulse Resp BP Pulse Ox O2 Del Method FiO2 01/14/25 09:50 98 26 H 01/14/25 09:49 85 82/41 L 01/14/25 09:01 90 25 H 01/14/25 09:00 99.4 F 107 H 25 H 115/60 94 01/14/25 08:31 101 H 27 H 01/14/25 08:30 100 84/43 L 01/14/25 08:30 101 H 25 H 01/14/25 08:20 102 H 95 Mechanical Ventilation 01/14/25 08:00 111 H 01/14/25 08:00 95 Mechanical Ventilation 01/14/25 08:00 126 H 106/57 L 01/14/25 07:59 116 H 113/58 L 01/14/25 07:59 116 H 113/58 L 01/14/25 07:59 128 H 29 H 01/14/25 07:57 117 H 27 H 01/14/25 07:55 30 01/14/25 07:54 99.3 F 116 H 26 H 108/55 L 95 01/14/25 07:00 110 H 102/50 L 01/14/25 07:00 99.3 F 110 H 26 H 102/50 L 94 01/14/25 06:28 120 H 29 H 01/14/25 06:00 120 H 120/61 01/14/25 06:00 120 H 120/61 01/14/25 06:00 115 H 01/14/25 06:00 115 H 27 H 120/61 95 01/14/25 05:43 92 26 H 01/14/25 05:14 106 H 26 H 01/14/25 05:14 106 H 26 H 01/14/25 05:00 93 94 Mechanical Ventilation 01/14/25 05:00 100 26 H 101/53 L 93 01/14/25 04:48 108 H 26 H 01/14/25 04:15 99 107/52 L 01/14/25 04:00 107 H 01/14/25 04:00 92 Mechanical Ventilation 30 01/14/25 04:00 30 01/14/25 04:00 104 H 118/58 L 01/14/25 04:00 104 H 118/58 L 01/14/25 04:00 104 H 29 H 01/14/25 04:00 99.1 F 104 H 29 H 118/58 L 92 01/14/25 03:00 97 117/60 01/14/25 03:00 99.3 F 97 26 H 117/60 95 01/14/25 02:37 97 96 Mechanical Ventilation 30 01/14/25 02:37 97 26 H 01/14/25 02:15 96 122/63 01/14/25 02:00 98 01/14/25 02:00 98 123/64 01/14/25 02:00 98 123/64 01/14/25 02:00 98 26 H 01/14/25 02:00 99.2 F 98 26 H 123/64 96 01/14/25 01:00 84 93/51 L 01/14/25 01:00 99.3 F 84 26 H 93/51 L 95 01/14/25 00:48 90 26 H 01/14/25 00:48 90 26 H 01/14/25 00:47 99 96/54 L 01/14/25 00:47 99 96/54 L 01/14/25 00:00 92 01/14/25 00:00 94 107/56 L 01/14/25 00:00 94 107/56 L 01/14/25 00:00 94 26 H 01/14/25 00:00 99.2 F 94 26 H 107/56 L 95 01/14/25 00:00 30 01/13/25 23:45 84 95 Mechanical Ventilation 01/13/25 23:22 95 Mechanical Ventilation 01/13/25 23:15 103 H 125/62 01/13/25 23:00 105 H 120/62 01/13/25 23:00 99.2 F 105 H 26 H 120/62 96 01/13/25 22:38 82 26 H 01/13/25 22:00 95 99/52 L 01/13/25 22:00 95 99/52 L 01/13/25 22:00 95 26 H 01/13/25 22:00 95 01/13/25 22:00 99.1 F 95 26 H 99/52 L 95 01/13/25 21:30 104 H 127/65 01/13/25 21:15 111 H 125/61 01/13/25 21:00 98.9 F 93 26 H 115/59 L 95 01/13/25 21:00 93 115/59 L 01/13/25 21:00 93 115/59 L 01/13/25 20:53 91 26 H 01/13/25 20:53 91 26 H 01/13/25 20:33 88 94 Mechanical Ventilation 30 01/13/25 20:33 88 26 H 01/13/25 20:15 81 116/61 01/13/25 20:00 96 Mechanical Ventilation 30 01/13/25 20:00 75 01/13/25 20:00 30 01/13/25 20:00 81 83/48 L 01/13/25 20:00 81 26 H 01/13/25 20:00 81 83/48 L 01/13/25 20:00 99.0 F 81 26 H 83/48 L 96 01/13/25 19:00 92 106/55 L 01/13/25 19:00 98.8 F 92 26 H 106/55 L 97 01/13/25 18:00 98.7 F 79 26 H 106/60 96 01/13/25 18:00 84 01/13/25 18:00 76 113/58 L 01/13/25 18:00 74 115/61 01/13/25 18:00 81 26 H 01/13/25 17:00 99 F 87 26 H 103/55 L 95 01/13/25 16:58 83 26 H 01/13/25 16:58 83 26 H 01/13/25 16:57 92 26 H 01/13/25 16:57 93 26 H 01/13/25 16:41 90 97 Mechanical Ventilation 01/13/25 16:00 109 H 01/13/25 16:00 106 H 132/67 01/13/25 16:00 106 H 26 H 01/13/25 16:00 106 H 132/67 01/13/25 16:00 30 01/13/25 16:00 94 Mechanical Ventilation 30 01/13/25 16:00 98.5 F 98 21 H 134/74 94 01/13/25 15:00 99.4 F 90 26 H 118/58 L 93 01/13/25 14:53 86 90/42 L 01/13/25 14:43 99 24 H 01/13/25 14:40 88 98 Mechanical Ventilation 30 01/13/25 14:30 96 24 H 01/13/25 14:00 89 99/49 L 01/13/25 14:00 87 26 H 01/13/25 14:00 99.4 F 88 26 H 97/50 L 94 01/13/25 14:00 94 01/13/25 13:52 110 H 119/57 L 01/13/25 13:00 99.6 F 108 H 26 H 121/58 L 95 01/13/25 12:44 101 H 26 H 01/13/25 12:44 101 H 26 H 01/13/25 12:44 84 103/52 L 01/13/25 12:44 84 103/52 L 01/13/25 12:40 84 89/48 L 01/13/25 12:00 107 H 01/13/25 12:00 35 01/13/25 12:00 95 Mechanical Ventilation 35 01/13/25 12:00 105 H 26 H 01/13/25 12:00 105 H 101/50 L 01/13/25 12:00 105 H 26 H 01/13/25 12:00 99.8 F H 113 H 23 H 101/54 L 95 01/13/25 11:51 112 H 120/59 L Intake/Output Intake/Output: Intake & Output 01/11/25 01/12/25 01/13/25 01/14/25 23:59 23:59 23:59 23:59 Intake Total 2676.1 1817.2 3448.6 1440.5 Output Total 800 1600 1600 850 Balance 1876.1 217.2 1848.6 590.5 Meds/Results Medications: Active Medications Generic Name Dose Route Start Last Admin Trade Name [place]q PRN Reason Stop Dose Admin Acetaminophen 650 mg 01/09/25 14:52 Acetaminophen 650 Mg Suppository RECTAL Q6H PRN Mild Pain (1-3) or Fever Albuterol/Ipratropium 3 ml 01/14/25 07:39 Ipratropium 0.5 Mg/Albuterol Sulfate 2.5 Mg Ampul.Neb 3 Ml INHALATION Q6HRT PRN Wheezing Dextrose 12.5 gm 01/10/25 00:27 Dextrose 50% 25 Gm/50 Ml Syringe IV PUSH PRN PRN Hypoglycemia Protocol Glucagon 1 mg 01/10/25 00:27 Glucagon For Inj 1 Mg Vial IM PRN PRN Hypoglycemia Protocol Glucose 15 gm 01/10/25 00:27 Glucose Oral Gel 15 Gm Of Glucse In 37.5 Gm Tube PO PRN PRN Hypoglycemia Protocol Heparin Sodium (Porcine) 7,000 units 01/09/25 18:05 01/10/25 23:53 Heparin Sodium 5,000 Units/Ml Vial IV PUSH 7,000 units PRN PRN Administration aPTT less than 55 seconds Heparin Sodium (Porcine) 3,500 units 01/09/25 18:05 01/13/25 20:59 Heparin Sodium 5,000 Units/Ml Vial IV PUSH 3,500 units PRN PRN Administration aPTT 55 - 70 seconds Doxycycline Hyclate 100 mg/ 100 mls @ 100 mls/hr 01/09/25 19:00 01/14/25 07:32 Sodium Chloride IVPB 01/14/25 18:59 Infused Q12H JENNY Infusion Cefepime HCl 1 gm/ Sodium 50 mls @ 100 mls/hr 01/10/25 06:00 01/14/25 05:47 Chloride IVPB Infused Q12H JENNY Infusion Heparin Sodium/Dextrose 25,000 units in 250 mls @ 15 mls/hr 01/09/25 18:05 01/14/25 10:53 Heparin Sodium/D5w 100 Units/Ml IV CONT 1,500 units/hr .[id number] JENNY 15 mls/hr Titration Protocol 1,500 UNITS/HR Dextrose 1,000 mls @ 100 mls/hr 01/10/25 00:27 Dextrose 5% 1,000 Ml IVPB PRN PRN Hypoglycemia Protocol Amiodarone HCl/Dextrose 360 mg in 200 mls @ 16.667 mls/hr 01/11/25 07:00 01/14/25 09:56 Nexterone 360 Mg/D5w 200 Ml IV CONT 0.5 mg/min .Q12H JENNY 16.67 mls/hr Infusion 0.5 MG/MIN Norepinephrine Bitartrate 8 mg in 250 mls @ 16.875 mls/hr 01/12/25 10:55 01/14/25 11:26 Levophed 8 Mg/D5w 250 Ml IV CONT 9 mcg/min .[id number] JENNY 16.88 mls/hr Titration Protocol 9 MCG/MIN Propofol 100 mls @ 6.492 mls/hr 01/12/25 10:55 01/14/25 11:24 Diprivan IV CONT 10 mcg/kg/min .[id number] JENNY 6.49 mls/hr Titration Protocol 10 MCG/KG/MIN Dexmedetomidine HCl 400 mcg in 100 mls @ 19.355 mls/hr 01/14/25 07:45 01/14/25 09:50 Precedex 400 Mcg/100 Ml IV CONT 0.7 mcg/kg/hr .[id number] JENNY 19.36 mls/hr Titration Protocol 0.7 MCG/KG/HR Insulin Aspart 3 - 6 units 01/10/25 06:00 01/14/25 11:24 Insulin Aspart (*Bkc) 100 Units/Ml SUB-Q Not Given Q6HR JENNY Protocol Multi-Ingred Cream/Lotion/Oil/Oint 1 applic 01/12/25 21:00 01/14/25 07:59 Mineral Oil/White Petrolatum Ointment EACH EYE 1 applic Q12HR JENNY Administration Pantoprazole Sodium 40 mg 01/09/25 21:00 01/14/25 07:59 Pantoprazole Sodium Iv 40 Mg Vial IV PUSH 40 mg Q12HR JENNY Administration Polyethylene Glycol 17 gm 01/12/25 10:42 01/13/25 08:47 Polyethylene Glycol 3350 17 Gm Powd.Pack PO 17 gm QAM PRN Administration Constipation Fluticasone/Salmeterol 2 puff 01/09/25 20:00 01/13/25 21:03 Fluticasone/Salmeterol 115-21 Mcg Inhaler 1 Puff INHALATION Not Given Q12HRT JENNY Senna/Docusate Sodium 1 tab 01/12/25 21:00 01/13/25 20:00 Senna/Docusate Sodium Tablet PO 1 tab HS JENNY Administration Sodium Chloride 10 ml 01/09/25 22:00 01/14/25 05:17 Central Line Flush IV PUSH 10 ml Q8HR JENNY Administration Sodium Chloride 20 ml 01/09/25 17:08 Central Line Flush IV PUSH PRN PRN after blood draws Sodium Chloride 10 ml 01/09/25 22:00 01/14/25 05:17 Central Line Flush IV PUSH 10 ml Q8HR JENNY Administration Sodium Chloride 20 ml 01/09/25 17:34 01/11/25 05:29 Central Line Flush IV PUSH 20 ml PRN PRN Administration after blood draws Radiology Results: ITS Impressions Abdomen X-Ray 01/09/25 13:38 IMPRESSION: 1: NG tube tip in the stomach. Chest/Abdomen/Pelvis CTA 01/09/25 13:59 IMPRESSION: 1. Extensive airspace disease of the right upper and lower lobe, consistent with pneumonia. 2: Bilateral pleural effusions, right greater than left. 3: Hypodense right renal masses. Cannot exclude renal cell carcinoma. Consider correlation with MRI abdomen with contrast. 4: Small pericardial effusion. Head CT 01/09/25 14:00 IMPRESSION: 1. No acute intracranial hemorrhage. No mass effect. 2. Probable chronic ischemic white matter change. Renal Ultrasound 01/09/25 19:35 IMPRESSION: No hydronephrosis or renal calculi. Indeterminate focus within the interpolar region of the right kidney, for which contrast enhanced CT or MRI (with renal mass protocol) is suggested for further evaluation. Abdomen Ultrasound 01/09/25 19:44 IMPRESSION: Limited evaluation of the pancreas secondary to overlying bowel gas Hepatomegaly with additional findings of portal hypertension, as detailed above. Chest X-Ray 01/14/25 08:41 IMPRESSION: 1. No significant change in a likely small right pleural effusion with atelectasis and/or pneumonia in the right lower lung zone. Labs Labs: Laboratory Tests 01/14/25 03:36 01/14/25 03:36 Lactic Acid 0.7 Calcium 8.6 Phosphorus 3.4 Magnesium 2.8 H Total Bilirubin 0.4 AST 158 H ALT 521 H Alkaline Phosphatase 83 Total Protein 5.0 L Albumin 2.7 L Microbiology 01/09/25 23:07 Sputum Sputum White Blood Cells - Final 01/09/25 23:07 Sputum Sputum Epithelial Cells - Final 01/09/25 23:07 Sputum Gram Stain Sputum Result 1 - Final 01/09/25 23:07 Sputum Gram Stain Sputum Result 2 - Final 01/09/25 23:07 Sputum Gram Stain Sputum Result 3 - Final 01/09/25 23:07 Sputum Gram Stain Sputum Result 4 - Final 01/09/25 23:07 Sputum Gram Stain Evaluation - Final 01/09/25 23:07 Sputum Sputum Culture - Final Pseudomonas aeruginosa 01/09/25 18:39 Urine - Urine [place] Legionella pneumophila Serogrp 1 Ag - Final 01/11/25 11:27 Blood Blood Culture - Preliminary 01/11/25 11:28 Blood Blood Culture - Preliminary 01/09/25 18:42 Blood Blood Culture - Preliminary
[2025-01-14] MEDS: PROPOFOL IV EMULSION 100 ML 12.98 MG IV CONT (09:53)
[2025-01-14 10:30] LABS: Triglycerides 97 mg/dL (<150)
[2025-01-14 10:50] LABS: Partial Thromboplastin Time 71.5 Seconds (22.3-36.8)
--- NOTE | 2025-01-14 11:08 | PCFNICU ---
ICU Rounding Note: Pt current nutrition is Nepro @@ 40 ml/h, goal rate. 30 ml flushes q 4 h. Nutrition recommendation: No new recommendations. Continue current nutrition care plan and orders. Last recorded weight is 110.6 kg. Bowel Motility: 0 BMs. Bowel regimen on board Labs Reviewed: Hgb 11.9, Hct 39, Alb 2.7, Mag 2.8, BUN 92, Cre 1.87 Meds Noted: Levophed, precedex, senna, protonix, propofol @ 12.98 ml/h= 342 kcal. Skin: No skin issues Additional Notes: Tolerating tube feeding well at goal rate Nepro @ 40 ml/h, provides 1584 kcal, 71 g protein, 640 ml free water. Holding off on protein modular because of propofol kcal. Meets needs @ 14 kcal/kg, 0.6 g protein/kg. Not adequate for needs. Will need protein modular when propofol is titrated down. Following daily in ICU rounds. Will monitor weight, labs, skin, diet orders, meds every Tuesday and Tuesday..
[2025-01-14] MEDS: dexmedeTOMIDine 400 MCG/100 ML 400 MCG/100 ML BAG 13.83 MCG IV CONT (13:49)
[2025-01-14 17:18] LABS: Partial Thromboplastin Time 80.8 Seconds (22.3-36.8)
[2025-01-14] MEDS: dexmedeTOMIDine 400 MCG/100 ML 400 MCG/100 ML BAG 19.36 MCG IV CONT (18:00)
[2025-01-14] MEDS: NOREPINEPHRINE 8 MG/D5W 250 ML 8 MG/250 ML BAG 22.5 MG IV CONT (18:00)
[2025-01-14] MEDS: PROPOFOL IV EMULSION 100 ML 6.49 MG IV CONT (18:00)
[2025-01-14] MEDS: SENNA/DOCUSATE SODIUM TABLET 1 TAB PO (20:54)
[2025-01-14] MEDS: dexmedeTOMIDine 400 MCG/100 ML 400 MCG/100 ML BAG 27.65 MCG IV CONT (22:36)
[2025-01-15] VITALS (47 sets, daily range): BP systolic 85–145; BP diastolic 48–86; PULSE 53–663; RESP 19–30; TEMP 36.6–37.3; O2SAT 92–98
[2025-01-15] MEDS: HEPARIN SOD/D5W 100 UNITS/ML 25,000 UNITS/250 ML BAG 15 UNITS IV CONT (01:43)
[2025-01-15] MEDS: dexmedeTOMIDine 400 MCG/100 ML 400 MCG/100 ML BAG 27.65 MCG IV CONT ×4 (02:16→16:01)
[2025-01-15] MEDS: PROPOFOL IV EMULSION 100 ML 12.98 MG IV CONT (04:00)
[2025-01-15 04:54] LABS: Hematocrit 23.4 % (42.0-52.0); Hemoglobin 7.1 g/dL (14.0-18.0); Immature Platelet Fraction Pct 7.5 % (0.9-11.2); Mean Corpuscular HGB Conc 30.3 g/dl (32-36); Mean Corpuscular Hemoglobin 29.5 pg (26-34); Mean Corpuscular Volume 97.1 fl (80-100); Platelet Count Result 95 k/mm3 (150-375); Red Blood Count 2.41 M/mm3 (4.6-6.20); White Blood Count 10.3 K/mm3 (4.5-10.0)
[2025-01-15] MEDS: CENTRAL LINE FLUSH 10 ML IV PUSH ×2 (05:37→05:50)
[2025-01-15] MEDS: CEFEPIME 1 GM in SODIUM CHLORIDE 0.9% IV 50 ML 100 ML IVPB ×2 (05:41→18:03)
[2025-01-15 05:44] LABS: Alveolar/Arterial O2 Gradient 81.7 mmHg; Carboxyhemoglobin 1.4 % THb (0-2.0); Fractional Inspired Oxygen 30 %; HCO3 ABG 25.8 mEq/l (22.0-26.0); Methemoglobin ABG 0.2 %THb (0-1.5); Oxygen Content ABG 10.1 %vol (16.0-22.0); Oxygen Saturation ABG 96.6 % (95.0-100.0); PCO2 ABG 40.2 mmHg (35.0-45.0); PO2 ABG 85.0 mmHg (80.0-100.0); PO2 FiO2 Ratio Arterial Blood 2.83 %; Reduced Hemoglobin 3.9 %THb (0-5.0)
[2025-01-15 05:49] LABS: Site Drawn ARTLINE
[2025-01-15 05:50] LABS: Alanine Aminotransferase 294 U/L (6-50); Albumin Level 2.7 g/dL (3.5-5.1); Alkaline Phosphatase 56 U/L (38-126); Anion Gap 5 mmol/L (4-12); Aspartate Amino Transferase 65 U/L (17-59); Bilirubin,Total 0.3 mg/dL (0.2-1.3); Blood Urea Nitrogen 92 mg/dL (9-20); Calcium 8.5 mg/dL (8.4-10.2); Carbon Dioxide 24 mmol/L (22-30); Chloride 112 mmol/L (98-107); Estimated CRCL calculation 51 ml/min; Estimated Glomerular Filt Rate 42; Glucose 156 mg/dL (65-110); Magnesium 2.6 mg/dL (1.6-2.3); Sodium 141 mmol/L (137-145); Total Protein 4.9 g/dL (6.3-8.2)
[2025-01-15 05:50] LABS: Arterial Blood Gas Tidal Volume 480 ml; Arterial Blood Gas Ventilator rate 22 /MIN
[2025-01-15 05:57] LABS: Potassium 4.4 mmol/L (3.4-5.0)
[2025-01-15] MEDS: NOREPINEPHRINE 8 MG/D5W 250 ML 8 MG/250 ML BAG 22.5 MG IV CONT (06:00)
[2025-01-15 07:00] LABS: Partial Thromboplastin Time 142.1 Seconds (22.3-36.8)
--- NOTE | 2025-01-15 08:04 | WPDINTPN ---
Progress Note: A&P Assessment and Plan (1) Acute hypoxic respiratory failure: Code(s): J96.01 - Acute respiratory failure with hypoxia Status: Acute Assessment and Plan: 01/09: Patient presented the ED via EMS after the called 911 as patient has been laying in bed with agonal breathing for the last 2 days, upon arrival of the EMS patient was unresponsive, with agonal breaths. Bag-mask ventilation was started patient was hypotensive, in the ER patient had a GCS of 3 and was emergently intubated. Post intubation patient is on O2 sats were in the upper 60s to 70s. Patient was in a PEEP of 15 and 100% FiO2 -01/09: I was asked to come down to the ER to evaluate the patient, patient was given rocuronium, and revealed emergently to the ICU, -01/09: emergent bronch was performed in the ICU with significant thick mucus plugs in the right mainstem, right upper lobe and right lower lobe. Suction and cleared most of the secretions with the bronchoscope.O2 sats improved to 95-99% -chest x-ray and ABGs reviewed -ventilator adjusted peep is at 8, FiO2 at 30% -chest physiotherapy per RT -status post Pulmozyme and Mucomyst treatment, secretions much improved -continue DuoNebs p.r.n. -continue Symbicort inhaler -status post course of Solu-Medrol -currently on propofol and Precedex infusion. Will wean down propofol 01/09: CT PE protocol, abdomen and pelvis with no evidence of pulmonary embolism, extensive right upper lobe and lower lobe airspace disease consistent with pneumonia. Bilateral pleural effusion, right greater than left. Hyperdense right renal masses, cannot exclude renal cell carcinoma, consider correlation with MRI abdomen with contrast. Small pericardial (2) Septic shock: Code(s): A41.9 - Sepsis, unspecified organism; R65.21 - Severe sepsis with septic shock Status: Acute Assessment and Plan: Patient with hypotension, acute respiratory failure, lactic acidosis, tachycardia -UA was negative -patient was treated with IV fluids and started on vasopressors. Patient eventually came off of vasopressors but Levophed was resumed on 01/14 -will maintain MAP > 65 mm or SBP > 100 mmHg at all times for adequate end organ perfusion -continue cefepime. Completed course of doxycycline, Flagyl discontinued on 01/12 -01/09: Blood culture -Gram-positive cocci which was Staph epidermis -01/09: Sputum culture -pansensitive Pseudomonas -01/09: Urine Legionella pending -01/11: Repeat blood cultures -preliminary report is negative x2 -01/09: Urine Legionella is pending (3) Pneumonia: Qualifiers: Laterality: right Lung location: unspecified part of lung Pneumonia type: due to unspecified organism Qualified Code(s): J18.9 - Pneumonia, unspecified organism Code(s): J18.9 - Pneumonia, unspecified organism Status: Acute Assessment and Plan: Likely pneumonia on of the right upper and lower lobe -COVID, RSV and influenza were NEGATIVE -continue antibiotics as above -currently on mechanical ventilation (4) Acute exacerbation of chronic obstructive pulmonary disease: Code(s): J44.1 - Chronic obstructive pulmonary disease with (acute) exacerbation Status: Acute Assessment and Plan: History of is COPD with emphysema seen on CT scan of the chest -continue bronchodilators as above (5) Atrial fibrillation: Qualifiers: Atrial fibrillation type: unspecified Qualified Code(s): I48.91 - Unspecified atrial fibrillation Code(s): I48.91 - Unspecified atrial fibrillation Status: Acute Assessment and Plan: History of atrial flutter/fibrillation patient is on apixaban at home, hold apixaban for now -currently in AFib, RVR with heart rates in the 70s -continue amiodarone infusion - 01/15 discontinue heparin infusion (6) Polysubstance use disorder: Code(s): F19.90 - Other psychoactive substance use, unspecified, uncomplicated Status: Acute Assessment and Plan: Urine tox screen was positive for cannabis and cocaine Will personal financial counselor patient once he is extubated (7) Transaminitis: Code(s): R74.01 - Elevation of levels of liver transaminase levels Status: Acute Assessment and Plan: Significantly elevated LFTs, -RUQ ultrasound shows hepatomegaly with additional findings of portal hypertension -hepatitis panel was negative -could also be related to hypoxia, hypotension/shock -continue to monitor liver function tests (8) Elevated troponin: Code(s): R79.89 - Other specified abnormal findings of blood chemistry Status: Acute Assessment and Plan: Elevated troponin 0.215 -could be related to type 2 infarct, is EKG did not show any ST elevation -troponins were flat, 01/10/2025: Echocardiogram Summary 1. Complete two-dimensional, color flow and Doppler transthoracic echocardiogram is performed. 2. Somewhat challenging exam with patient on ventilator support. 3. Normal left ventricular size with overall good systolic function, paradoxical septal motion consistent with bundle branch block. EF 55-60% 4. Right ventricular enlargement with systolic dysfunction. 5. Mild tricuspid regurgitation, estimated RV systolic pressure 51 mmHg. 6. Sclerotic aortic valve which exhibits preserved leaflet excursion. (9) Current smoker: Code(s): F17.200 - Nicotine dependence, unspecified, uncomplicated Status: Acute Assessment and Plan: Will personal financial counselor patient on tobacco cessation once he is extubated (10) CHF (congestive heart failure): Qualifiers: Heart failure type: unspecified Heart failure chronicity: chronic Qualified Code(s): I50.9 - Heart failure, unspecified Code(s): I50.9 - Heart failure, unspecified Status: Acute Assessment and Plan: Patient has a history of CHF, likely HFpEF -proBNP > 91718 Echocardiogram as above, EF of 55%, RVSP 51 mmHg, moderate pulmonary hypertension likely related to COPD -chest x-ray does not show pulmonary edema (11) Electrolyte imbalance: Code(s): E87.8 - Other disorders of electrolyte and fluid balance, not elsewhere classified Status: Acute Assessment and Plan: Hyperkalemia, initial potassium 6.1 in the ER -resolved -potassium stable and normal (12) Acute renal failure: Code(s): N17.9 - Acute kidney failure, unspecified Status: Acute Assessment and Plan: 01/09/2025: Patient presented with creatinine of 3.81 (baseline 1.10-1.23). Multifactorial likely related to infection, sepsis, shock, medications, polysubstance abuse -Adequately fluid-resuscitated -Urine lytes showed prerenal picture -renal ultrasound with no hydronephrosis or calculi, intermittent focus within the interpolar region of the right kidney for which contrast enhanced CT or MRI is suggested -urine eosinophils negative -CPK levels are normal Continue to monitor renal function, electrolytes and urine output (13) Bleeding: Code(s): R58 - Hemorrhage, not elsewhere classified Status: Acute Assessment and Plan: Increase vasopressor requirement over last 24 hours. Hemoglobin this morning showed dropped to 7.1. Patient is on anticoagulation. I suspect petition bleeding although there is no obvious clinical sign. Patient has not any bowel movement. I aspirated tube feed and it does look dark but not conclusive of bleeding. Hold tube feeds, OG tube to L IS, and NPO -PPI IV q.12 hours -DC heparin infusion -transfuse 1 unit PRBC -q.6 hours CBC -CT chest abdomen pelvis to rule out retroperitoneal hemorrhage -if initial testing negative will consider consulting GI Plan DVT prophylaxis: Patient was on Heparin infusion Stress ulcer prophylaxis: Protonix Nutrition: Tolerating tube feeds. P.r.n. MiraLax, Colace Code Status: DNR Critical Care Time Spent: 35 minutes Due to a high probability of clinically significant, life threatening deterioration, the patient required my highest level of preparedness to intervene emergently and I personally spent this critical care time directly and personally managing the patient. This critical care time included obtaining a history; examining the patient; pulse oximetry; ordering and review of studies; arranging urgent treatment with development of a management plan; evaluation of patient's response to treatment; frequent reassessment; and discussions with other providers. It was exclusive of separately billable procedures and treating other patients and teaching time. Please see Assessment and Plan section and the rest of the note for further information on patient assessment and treatment This dictation may have been done utilizing a voice recognition system. Attempts have been made to correct errors. However, there may be uncorrected grammatical, spelling, and recognitions errors present. Subjective Date/time seen: 01/15/25 Overnight events reviewed. Afebrile Continues to be on mechanical ventilation 30% FiO2 Continues to be on vasopressors Levophed Continues to be sedated with with propofol and Precedex On amiodarone and heparin infusion Over last 24 hours patient has had increased pressor requirement. He was started on Precedex infusion which could have contributed. Patient was given 2 fluid boluses. No bowel movements. Tolerating tube feeds. Patient is sedated unable to provide any meaningful history. Urine output is adequate. Interval history: Reason for consult: Acute hypoxic respiratory failure, altered mental status, pneumonia, acute kidney injury, hyperkalemia, severe sepsis/shock, transaminitis 01/09: Bronchoscopy Review of Systems Review of Systems: ROS unobtainable: Yes unobtainable due to endotracheal tube, unobtainable due to medical condition and unobtainable due to mental status Exam Narrative: General: Patient intubated and sedated, in no acute distress at this time HEENT:? Pupils equally reactive, sclera is clear, ETT in place Neck:? Supple Respiratory:? Coarse breath sounds bilaterally R > L, decreased breath sounds at right base, distant breath sounds Cardiac:? Irregularly irregular, tachycardia Abdomen:? Soft, nontender, nondistended, hypoactive bowel sounds Extremities:? Extremities are warm, palpable pedal pulse Neuro:? Patient intubated, sedated, patient does not open his eyes or follow simple commands bilaterally, grimaces on painful stimuli Skin:? No skin lesions noted Psych:? Unable to assess at this time Objective Data Vital Signs Vital Signs: Vital Signs - 24 hr 01/14/25 08:20 01/14/25 08:30 01/14/25 08:30 Temperature Pulse Rate 102 H 101 H 100 Respiratory Rate 25 H Blood Pressure 84/43 L Pulse Oximetry 95 Oxygen Delivery Mechanical Ventilation Fraction of Inspired Oxygen 30 01/14/25 08:31 01/14/25 09:00 01/14/25 09:01 Temperature 37.4 C Pulse Rate 101 H 107 H 90 Respiratory Rate 27 H 25 H 25 H Blood Pressure 115/60 Pulse Oximetry 94 Oxygen Delivery Fraction of Inspired Oxygen 01/14/25 09:49 01/14/25 09:50 01/14/25 09:53 Temperature Pulse Rate 85 98 100 Respiratory Rate 26 H 28 H Blood Pressure 82/41 L Pulse Oximetry Oxygen Delivery Fraction of Inspired Oxygen 01/14/25 09:53 01/14/25 09:56 01/14/25 10:00 Temperature Pulse Rate 100 100 106 H Respiratory Rate 28 H Blood Pressure 127/62 Pulse Oximetry Oxygen Delivery Fraction of Inspired Oxygen 01/14/25 10:00 01/14/25 11:00 01/14/25 11:00 Temperature 37.6 C H 37.9 C H Pulse Rate 99 96 77 Respiratory Rate 26 H 29 H Blood Pressure 113/56 L 90/43 L Pulse Oximetry 98 96 99 Oxygen Delivery Mechanical Ventilation Fraction of Inspired Oxygen 30 01/14/25 11:24 01/14/25 11:26 01/14/25 11:40 Temperature Pulse Rate 73 64 95 Respiratory Rate 25 H 27 H Blood Pressure 89/40 L Pulse Oximetry Oxygen Delivery Fraction of Inspired Oxygen 01/14/25 11:41 01/14/25 11:49 01/14/25 11:49 Temperature 38.0 C H Pulse Rate 101 H 74 Respiratory Rate 25 H Blood Pressure 111/58 L 111/57 L Pulse Oximetry 98 Oxygen Delivery Fraction of Inspired Oxygen 30 01/14/25 11:53 01/14/25 12:00 01/14/25 13:00 Temperature 37.7 C H Pulse Rate 74 107 H Respiratory Rate 22 H Blood Pressure 109/71 Pulse Oximetry 98 97 Oxygen Delivery Mechanical Ventilation Fraction of Inspired Oxygen 30 01/14/25 13:19 01/14/25 13:20 01/14/25 13:20 Temperature Pulse Rate 94 92 97 Respiratory Rate 29 H 28 H Blood Pressure 87/52 L Pulse Oximetry Oxygen Delivery Fraction of Inspired Oxygen 01/14/25 13:22 01/14/25 13:36 01/14/25 13:40 Temperature Pulse Rate 86 73 110 H Respiratory Rate Blood Pressure 93/56 L 107/57 L Pulse Oximetry 97 Oxygen Delivery Mechanical Ventilation Fraction of Inspired Oxygen 30 01/14/25 13:49 01/14/25 13:49 01/14/25 13:53 Temperature Pulse Rate 104 H 104 H 118 H Respiratory Rate 23 H 23 H 26 H Blood Pressure Pulse Oximetry Oxygen Delivery Fraction of Inspired Oxygen 01/14/25 13:55 01/14/25 14:00 01/14/25 14:00 Temperature 37.8 C H Pulse Rate 102 H 109 H 109 H Respiratory Rate 23 H 28 H Blood Pressure 98/64 L Pulse Oximetry 96 Oxygen Delivery Fraction of Inspired Oxygen 01/14/25 14:11 01/14/25 14:15 01/14/25 14:50 Temperature Pulse Rate 86 84 81 Respiratory Rate 26 H Blood Pressure 75/48 L 79/51 L Pulse Oximetry Oxygen Delivery Fraction of Inspired Oxygen 01/14/25 14:51 01/14/25 14:51 01/14/25 14:52 Temperature Pulse Rate 86 84 86 Respiratory Rate 26 H Blood Pressure 92/54 L 88/52 L Pulse Oximetry Oxygen Delivery Fraction of Inspired Oxygen 01/14/25 14:54 01/14/25 16:00 01/14/25 16:00 Temperature 37.9 C H 37.7 C H Pulse Rate 88 86 Respiratory Rate 25 H 25 H Blood Pressure 91/54 L 106/59 L Pulse Oximetry 94 94 94 Oxygen Delivery Mechanical Ventilation Fraction of Inspired Oxygen 30 01/14/25 16:00 01/14/25 16:00 01/14/25 16:00 Temperature Pulse Rate 89 90 Respiratory Rate 25 H Blood Pressure Pulse Oximetry Oxygen Delivery Fraction of Inspired Oxygen 30 01/14/25 16:00 01/14/25 16:00 01/14/25 16:00 Temperature Pulse Rate 90 90 90 Respiratory Rate 25 H Blood Pressure 117/66 117/66 Pulse Oximetry Oxygen Delivery Fraction of Inspired Oxygen 01/14/25 17:00 01/14/25 17:02 01/14/25 18:00 Temperature 37.7 C H Pulse Rate 97 100 88 Respiratory Rate 25 H Blood Pressure 102/55 L 112/64 Pulse Oximetry 99 99 Oxygen Delivery Mechanical Ventilation Fraction of Inspired Oxygen 30 01/14/25 18:00 01/14/25 18:00 01/14/25 18:00 Temperature Pulse Rate 88 88 88 Respiratory Rate 26 H 26 H Blood Pressure 112/64 Pulse Oximetry Oxygen Delivery Fraction of Inspired Oxygen 01/14/25 18:00 01/14/25 18:00 01/14/25 18:00 Temperature Pulse Rate 88 88 88 Respiratory Rate 27 H 27 H Blood Pressure 110/60 Pulse Oximetry Oxygen Delivery Fraction of Inspired Oxygen 01/14/25 18:00 01/14/25 18:00 01/14/25 18:00 Temperature 37.6 C Pulse Rate 88 85 83 Respiratory Rate 25 H Blood Pressure 110/60 107/58 L Pulse Oximetry 99 Oxygen Delivery Fraction of Inspired Oxygen 01/14/25 19:00 01/14/25 19:00 01/14/25 20:00 Temperature 37.5 C Pulse Rate 86 85 Respiratory Rate 23 H Blood Pressure 106/63 106/63 Pulse Oximetry 97 Oxygen Delivery Fraction of Inspired Oxygen 30 01/14/25 20:00 01/14/25 20:00 01/14/25 20:00 Temperature 37.4 C Pulse Rate 93 101 H 93 Respiratory Rate 22 H 22 H Blood Pressure 106/61 Pulse Oximetry 99 97 Oxygen Delivery Mechanical Ventilation Fraction of Inspired Oxygen 30 01/14/25 20:00 01/14/25 20:00 01/14/25 20:00 Temperature Pulse Rate 93 93 93 Respiratory Rate 22 H 22 H Blood Pressure 106/61 Pulse Oximetry Oxygen Delivery Fraction of Inspired Oxygen 01/14/25 20:00 01/14/25 20:18 01/14/25 21:00 Temperature 37.4 C Pulse Rate 93 106 H 91 Respiratory Rate 24 H Blood Pressure 103/61 109/57 L Pulse Oximetry 99 97 Oxygen Delivery Mechanical Ventilation Fraction of Inspired Oxygen 30 01/14/25 21:10 01/14/25 21:30 01/14/25 22:00 Temperature Pulse Rate 92 73 69 Respiratory Rate 27 H 22 H Blood Pressure 122/60 Pulse Oximetry Oxygen Delivery Fraction of Inspired Oxygen 01/14/25 22:00 01/14/25 22:00 01/14/25 22:00 Temperature Pulse Rate 71 71 71 Respiratory Rate 22 H 22 H Blood Pressure 122/60 Pulse Oximetry Oxygen Delivery Fraction of Inspired Oxygen 01/14/25 22:00 01/14/25 22:00 01/14/25 22:35 Temperature 37.3 C Pulse Rate 71 71 75 Respiratory Rate 22 H 22 H Blood Pressure 122/60 Pulse Oximetry 95 Oxygen Delivery Fraction of Inspired Oxygen 01/14/25 22:36 01/14/25 23:00 01/14/25 23:19 Temperature 37.3 C Pulse Rate 75 86 93 Respiratory Rate 22 H 22 H Blood Pressure 126/88 Pulse Oximetry 95 97 Oxygen Delivery Mechanical Ventilation Fraction of Inspired Oxygen 30 01/15/25 00:00 01/15/25 00:00 01/15/25 00:00 Temperature 37.3 C Pulse Rate 68 68 68 Respiratory Rate 29 H 29 H 29 H Blood Pressure 133/86 Pulse Oximetry 98 Oxygen Delivery Fraction of Inspired Oxygen 01/15/25 00:00 01/15/25 00:00 01/15/25 00:00 Temperature Pulse Rate 68 68 66 Respiratory Rate Blood Pressure 133/86 133/86 Pulse Oximetry Oxygen Delivery Fraction of Inspired Oxygen 01/15/25 00:00 01/15/25 00:00 01/15/25 00:30 Temperature Pulse Rate 68 70 Respiratory Rate 29 H 25 H Blood Pressure Pulse Oximetry 98 Oxygen Delivery Mechanical Ventilation Fraction of Inspired Oxygen 30 30 01/15/25 01:00 01/15/25 02:00 01/15/25 02:00 Temperature 37.2 C Pulse Rate 57 L 57 L 57 L Respiratory Rate 24 H 24 H 24 H Blood Pressure 130/60 Pulse Oximetry 95 Oxygen Delivery Fraction of Inspired Oxygen 01/15/25 02:00 01/15/25 02:00 01/15/25 02:00 Temperature Pulse Rate 57 L 57 L 57 L Respiratory Rate Blood Pressure 119/53 L 119/53 L Pulse Oximetry Oxygen Delivery Fraction of Inspired Oxygen 01/15/25 02:00 01/15/25 02:16 01/15/25 02:16 Temperature 37.2 C Pulse Rate 57 L 77 77 Respiratory Rate 24 H 24 H 24 H Blood Pressure 119/53 L Pulse Oximetry 98 Oxygen Delivery Fraction of Inspired Oxygen 01/15/25 02:31 01/15/25 03:00 01/15/25 04:00 Temperature 37.2 C Pulse Rate 66 58 L 69 Respiratory Rate 29 H 22 H Blood Pressure 122/56 L Pulse Oximetry 98 95 Oxygen Delivery Mechanical Ventilation Fraction of Inspired Oxygen 30 01/15/25 04:00 01/15/25 04:00 01/15/25 04:00 Temperature Pulse Rate 69 69 69 Respiratory Rate 22 H 22 H Blood Pressure 105/48 L Pulse Oximetry Oxygen Delivery Fraction of Inspired Oxygen 01/15/25 04:00 01/15/25 04:00 01/15/25 04:00 Temperature 37.2 C Pulse Rate 69 65 68 Respiratory Rate 22 H 29 H Blood Pressure 105/48 L 105/48 L Pulse Oximetry 97 98 Oxygen Delivery Mechanical Ventilation Fraction of Inspired Oxygen 30 01/15/25 04:00 01/15/25 04:00 01/15/25 05:00 Temperature 37.2 C Pulse Rate 81 58 L Respiratory Rate 29 H Blood Pressure 122/56 L Pulse Oximetry 97 Oxygen Delivery Fraction of Inspired Oxygen 30 01/15/25 05:35 01/15/25 06:00 01/15/25 06:00 Temperature Pulse Rate 73 63 63 Respiratory Rate Blood Pressure 124/58 L 124/58 L Pulse Oximetry 97 Oxygen Delivery Mechanical Ventilation Fraction of Inspired Oxygen 30 01/15/25 06:00 01/15/25 06:00 01/15/25 06:00 Temperature Pulse Rate 63 63 63 Respiratory Rate 22 H 22 H Blood Pressure 124/58 L Pulse Oximetry Oxygen Delivery Fraction of Inspired Oxygen 01/15/25 06:00 01/15/25 06:00 01/15/25 06:00 Temperature 37.1 C Pulse Rate 63 663 H 63 Respiratory Rate 22 H Blood Pressure 124/58 L 124/58 L Pulse Oximetry 98 Oxygen Delivery Fraction of Inspired Oxygen 01/15/25 07:34 Temperature Pulse Rate 64 Respiratory Rate Blood Pressure Pulse Oximetry 96 Oxygen Delivery Mechanical Ventilation Fraction of Inspired Oxygen 30 Intake/Output Intake/Output: Intake & Output 01/12/25 01/13/25 01/14/25 01/15/25 23:59 23:59 23:59 23:59 Intake Total 1817.2 3448.6 3823.0 1192.9 Output Total 1600 1600 2050 1250 Balance 217.2 1848.6 1773.0 -57.1 Meds/Results Medications: Active Medications Generic Name Dose Route Start Last Admin Trade Name Freq PRN Reason Stop Dose Admin Acetaminophen 650 mg 01/09/25 14:52 Acetaminophen 650 Mg Suppository RECTAL Q6H PRN Mild Pain (1-3) or Fever Albuterol/Ipratropium 3 ml 01/14/25 07:39 Ipratropium 0.5 Mg/Albuterol Sulfate 2.5 Mg Ampul.Neb 3 Ml INHALATION Q6HRT PRN Wheezing Dextrose 12.5 gm 01/10/25 00:27 Dextrose 50% 25 Gm/50 Ml Syringe IV PUSH PRN PRN Hypoglycemia Protocol Glucagon 1 mg 01/10/25 00:27 Glucagon For Inj 1 Mg Vial IM PRN PRN Hypoglycemia Protocol Glucose 15 gm 01/10/25 00:27 Glucose Oral Gel 15 Gm Of Glucse In 37.5 Gm Tube PO PRN PRN Hypoglycemia Protocol Cefepime HCl 1 gm/ Sodium 50 mls @ 100 mls/hr 01/10/25 06:00 01/15/25 05:41 Chloride IVPB 01/19/25 06:29 100 mls/hr Q12H JENNY Administration Dextrose 1,000 mls @ 100 mls/hr 01/10/25 00:27 Dextrose 5% 1,000 Ml IVPB PRN PRN Hypoglycemia Protocol Amiodarone HCl/Dextrose 360 mg in 200 mls @ 16.667 mls/hr 01/11/25 07:00 01/15/25 06:00 Nexterone 360 Mg/D5w 200 Ml IV CONT 0.5 mg/min .Q12H JENNY 16.67 mls/hr 0.5 MG/MIN Administration Norepinephrine Bitartrate 8 mg in 250 mls @ 22.5 mls/hr 01/12/25 10:55 01/15/25 06:00 Levophed 8 Mg/D5w 250 Ml IV CONT 12 mcg/min .Q11H7M JENNY 22.5 mls/hr Protocol Administration 12 MCG/MIN Propofol 100 mls @ 12.984 mls/hr 01/12/25 10:55 01/15/25 04:00 Diprivan IV CONT 20 mcg/kg/min .Q7H43M JENNY 12.98 mls/hr Protocol Administration 20 MCG/KG/MIN Dexmedetomidine HCl 400 mcg in 100 mls @ 19.355 mls/hr 01/14/25 07:45 01/15/25 06:00 Precedex 400 Mcg/100 Ml IV CONT 1 mcg/kg/hr .Q5H10M JENNY 27.65 mls/hr Protocol Administration 0.7 MCG/KG/HR Sodium Chloride 250 mls @ 30 mls/hr 01/15/25 07:51 Normal Saline Iv IV CONT 01/15/25 16:10 .Q8H20M STA Lactated Ringer's 1,000 mls @ 999 mls/hr 01/15/25 07:54 Lr - Lactated Ringers Iv IV CONT 01/15/25 08:54 .Q1H1M STA Insulin Aspart 3 - 6 units 01/10/25 06:00 01/15/25 05:37 Insulin Aspart (*Bkc) 100 Units/Ml SUB-Q Not Given Q6HR JENNY Protocol Multi-Ingred Cream/Lotion/Oil/Oint 1 applic 01/12/25 21:00 01/14/25 20:54 Mineral Oil/White Petrolatum Ointment EACH EYE 1 applic Q12HR JENNY Administration Pantoprazole Sodium 40 mg 01/09/25 21:00 01/14/25 20:54 Pantoprazole Sodium Iv 40 Mg Vial IV PUSH 40 mg Q12HR JENNY Administration Polyethylene Glycol 17 gm 01/12/25 10:42 01/14/25 09:00 Polyethylene Glycol 3350 17 Gm Powd.Pack PO 17 gm QAM PRN Administration Constipation Fluticasone/Salmeterol 2 puff 01/09/25 20:00 01/14/25 20:56 Fluticasone/Salmeterol 115-21 Mcg Inhaler 1 Puff INHALATION Not Given On Hold: 01/14/25 08:00 Q12HRT JENNY Senna/Docusate Sodium 1 tab 01/12/25 21:00 01/14/25 20:54 Senna/Docusate Sodium Tablet PO 1 tab HS JENNY Administration Sodium Chloride 20 ml 01/09/25 17:08 Central Line Flush IV PUSH PRN PRN after blood draws Sodium Chloride 20 ml 01/09/25 17:34 01/11/25 05:29 Central Line Flush IV PUSH 20 ml PRN PRN Administration after blood draws Radiology Results: ITS Impressions Abdomen X-Ray 01/09/25 13:38 IMPRESSION: 1: NG tube tip in the stomach. Chest/Abdomen/Pelvis CTA 01/09/25 13:59 IMPRESSION: 1. Extensive airspace disease of the right upper and lower lobe, consistent with pneumonia. 2: Bilateral pleural effusions, right greater than left. 3: Hypodense right renal masses. Cannot exclude renal cell carcinoma. Consider correlation with MRI abdomen with contrast. 4: Small pericardial effusion. Head CT 01/09/25 14:00 IMPRESSION: 1. No acute intracranial hemorrhage. No mass effect. 2. Probable chronic ischemic white matter change. Renal Ultrasound 01/09/25 19:35 IMPRESSION: No hydronephrosis or renal calculi. Indeterminate focus within the interpolar region of the right kidney, for which contrast enhanced CT or MRI (with renal mass protocol) is suggested for further evaluation. Abdomen Ultrasound 01/09/25 19:44 IMPRESSION: Limited evaluation of the pancreas secondary to overlying bowel gas Hepatomegaly with additional findings of portal hypertension, as detailed above. Chest X-Ray 01/15/25 06:19 Impression: Small bilateral pleural effusions with moderate bibasilar pulmonary edema. Support tubes, as above. Labs Labs: Laboratory Results - last 24 hr 01/14/25 01/14/25 01/14/25 10:00 11:16 14:01 WBC RBC Hgb Hct MCV MCH MCHC RDW Plt Count MPV % Immature Plt Fraction APTT 71.5 H Puncture Site ABG pH ABG pCO2 ABG pO2 ABG PO2/FiO2 Ratio ABG HCO3 ABG O2 Saturation ABG O2 Content ABG Base Excess A-a Gradient Oxyhemoglobin Carboxyhemoglobin Methemoglobin Reduced Hemoglobin Total Hemoglobin O2 Delivery Device O2 Liters/Min Minute Volume Vent Rate Vent Mode FiO2 Tidal Volume PEEP Peak Inspir Pressure Pressure Support Sodium Potassium Chloride Carbon Dioxide Anion Gap BUN Creatinine Estim Creat Clear Calc Estimated GFR Glucose POC Capillary Glucose 131 H 128 H Calcium Magnesium Total Bilirubin AST ALT Alkaline Phosphatase Total Protein Albumin Triglycerides 97 01/14/25 01/14/25 01/15/25 16:40 17:11 00:04 WBC RBC Hgb Hct MCV MCH MCHC RDW Plt Count MPV % Immature Plt Fraction APTT 80.8 H Puncture Site ABG pH ABG pCO2 ABG pO2 ABG PO2/FiO2 Ratio ABG HCO3 ABG O2 Saturation ABG O2 Content ABG Base Excess A-a Gradient Oxyhemoglobin Carboxyhemoglobin Methemoglobin Reduced Hemoglobin Total Hemoglobin O2 Delivery Device O2 Liters/Min Minute Volume Vent Rate Vent Mode FiO2 Tidal Volume PEEP Peak Inspir Pressure Pressure Support Sodium Potassium Chloride Carbon Dioxide Anion Gap BUN Creatinine Estim Creat Clear Calc Estimated GFR Glucose POC Capillary Glucose 133 H 116 H Calcium Magnesium Total Bilirubin AST ALT Alkaline Phosphatase Total Protein Albumin Triglycerides 01/15/25 01/15/25 01/15/25 03:45 04:00 04:11 WBC 10.3 H RBC 2.41 L Hgb 7.1 L D Hct 23.4 L MCV 97.1 MCH 29.5 MCHC 30.3 L RDW 17.2 H Plt Count 95 L MPV 12.8 H % Immature Plt Fraction 7.5 APTT 142.1 H Puncture Site ABG pH ABG pCO2 ABG pO2 ABG PO2/FiO2 Ratio ABG HCO3 ABG O2 Saturation ABG O2 Content ABG Base Excess A-a Gradient Oxyhemoglobin Carboxyhemoglobin Methemoglobin Reduced Hemoglobin Total Hemoglobin O2 Delivery Device O2 Liters/Min Minute Volume Vent Rate Vent Mode FiO2 Tidal Volume PEEP Peak Inspir Pressure Pressure Support Sodium 141 Potassium 4.4 Chloride 112 H Carbon Dioxide 24 Anion Gap 5 BUN 92 H Creatinine 1.64 H Estim Creat Clear Calc 51 Estimated GFR 42 L Glucose 156 H POC Capillary Glucose Calcium 8.5 Magnesium 2.6 H Total Bilirubin 0.3 AST 65 H ALT 294 H Alkaline Phosphatase 56 Total Protein 4.9 L Albumin 2.7 L Triglycerides 01/15/25 05:05 WBC RBC Hgb Hct MCV MCH MCHC RDW Plt Count MPV % Immature Plt Fraction APTT Puncture Site Artline ABG pH 7.426 ABG pCO2 40.2 ABG pO2 85.0 ABG PO2/FiO2 Ratio 2.83 ABG HCO3 25.8 ABG O2 Saturation 96.6 ABG O2 Content 10.1 L ABG Base Excess 1.4 A-a Gradient 81.7 Oxyhemoglobin 94.5 Carboxyhemoglobin 1.4 Methemoglobin 0.2 Reduced Hemoglobin 3.9 Total Hemoglobin 7.5 L* O2 Delivery Device Ventilator O2 Liters/Min Not Reportable Minute Volume Not Reportable Vent Rate 22 Vent Mode Cmv FiO2 30 Tidal Volume 480 PEEP 8 Peak Inspir Pressure Not Reportable Pressure Support Not Reportable Sodium Potassium Chloride Carbon Dioxide Anion Gap BUN Creatinine Estim Creat Clear Calc Estimated GFR Glucose POC Capillary Glucose Calcium Magnesium Total Bilirubin AST ALT Alkaline Phosphatase Total Protein Albumin Triglycerides Quality VTE Prophylaxis VTE prophylaxis: pharmacologic ordered
[2025-01-15] MEDS: LACTATED RINGERS 1,000 ML 999 ML IV CONT (09:59)
[2025-01-15] MEDS: PANTOPRAZOLE SODIUM IV 40 MG VIAL IV PUSH ×2 (10:00→20:31)
[2025-01-15] MEDS: MINERAL OIL/WHITE PETROLATUM OINTMENT 1 APPLIC EACH EYE ×2 (10:00→20:31)
--- NOTE | 2025-01-15 10:05 | P.PNNP_ITS ---
Progress Note: A&P Assessment and Plan (1) Acute kidney injury: Code(s): N17.9 - Acute kidney failure, unspecified Status: Acute Assessment and Plan: * slow improvement noted * as noted on admission * normal creatinine on hospital discharge in June 2024 * suspect ATN with multifactorial etiology: * infection/sepsis * hemodynamic instability/shock * prerenal factors * ARB + diuretic use prior to admission * polysubstance abuse * other (?) * contrast exposure (CTA C/A/P on 01/09) may hamper/delay recovery * evaluation to date noted: * urine electrolytes pre-renal * CT of abdomen with hypodense right renal masses * renal u/s with no hydronephrosis or renal calculi; indeterminate focus within the interpolar region of the right kidney * urine eosinophils negative * UA without evidence of infection * CPK normal * follow trend of repeat labs and UOP (2) Septic shock: Code(s): A41.9 - Sepsis, unspecified organism; R65.21 - Severe sepsis with septic shock Status: Acute Assessment and Plan: * as noted on presentation with hypotension, acute respiratory failure, lactic acidosis, tachycardia, and DERECK * presumably secondary to pneumonia * s/p 2 L IV fluid bolus and on maintenance IV fluid * lactic acid has normalized * on vasopressor support * culture data noted: * blood culture negative * urine culture pending * sputum culture with Pseudomonas * on antibiotics * continue current therapy (3) Acute hypoxic respiratory failure: Code(s): J96.01 - Acute respiratory failure with hypoxia Status: Acute Assessment and Plan: * as noted on presentation to the ER * intubated in ER on admission (due to hypoxia and agonal breathing) * complicated by mucus plugging of right main stem bronchus requiring bronchoscopy with suctioning of secretions * CT imaging noted * no evidence of pulmonary embolism, extensive right upper lobe and lower lobe airspace disease consistent with pneumonia; ilateral pleural effusion, right greater than left * Echo noted: * normal left ventricular size with overall good systolic function, paradoxical septal motion consistent with bundle branch block * EF 55-60% * right ventricular enlargement with systolic dysfunction * mild tricuspid regurgitation, estimated RV systolic pressure 51 mmHg * sclerotic aortic valve which exhibits preserved leaflet excursion * on ventilator support * chest physiotherapy * on nebulizer therapy, mucomyst, and pulmozyme * further complicated by known history of COPD * element of volume overload -- may need diuresis assuming hemodynamics can tolerate... (4) Pneumonia: Qualifiers: Laterality: right Lung location: unspecified part of lung Pneumonia type: due to unspecified organism Qualified Code(s): J18.9 - Pneumonia, unspecified organism Code(s): J18.9 - Pneumonia, unspecified organism Status: Acute Assessment and Plan: * as suggested by imaging to date * COVID, RSV and influenza testing negative * Pseudomonas noted in sputum culturewww * continue antibiotics * follow respiratory status (5) Anemia: Code(s): D64.9 - Anemia, unspecified Status: Acute Assessment and Plan: * drop in H/H noted today (01/15) * due to DERECK/ARF along with acute illness * however, was on heparin gtt... * PRBC transfusion per protocol * follow trend of H/H (6) CHF (congestive heart failure): Qualifiers: Heart failure type: unspecified Heart failure chronicity: chronic Q ualified Code(s): I50.9 - Heart failure, unspecified Code(s): I50.9 - Heart failure, unspecified Status: Acute Assessment and Plan: * known history * Echo noted (see #3) * evidence of fluid overload by recent imaging * may need to consider diuresis (7) Acute exacerbation of chronic obstructive pulmonary disease: Code(s): J44.1 - Chronic obstructive pulmonary disease with (acute) exacerbation Status: Acute Assessment and Plan: * known history of is COPD with emphysema seen on CT scan of the chest * likely precipitated by pneumonia * on bronchodilator therapy (8) Atrial fibrillation: Qualifiers: Atrial fibrillation type: unspecified Qualified Code(s): I48.91 - Unspecified atrial fibrillation Code(s): I48.91 - Unspecified atrial fibrillation Status: Acute Assessment and Plan: * rate control strategy * was on heparin gtt for anticoagulation * off due to drop in H/H (9) Transaminitis: Code(s): R74.01 - Elevation of levels of liver transaminase levels Status: Acute Assessment and Plan: * significantly elevated LFTs on admission * due to hypotension/shock and hypotension on presentation (?) * RUQ ultrasound shows hepatomegaly with additional findings of portal hypertension * hepatitis panel was negative * follow trend (10) Polysubstance use disorder: Code(s): F19.90 - Other psychoactive substance use, unspecified, uncomplicated Status: Acute Assessment and Plan: * urine tox screen was positive for cannabis and cocaine Will continue to follow. L Subjective Date/time seen: 01/15/25 10:05 Interval history: Follow-up for acute kidney injury/acute renal failure. Issues with hypotension necessitating increasing vasopressor requirements despite IVF boluses; remains intubated/sedated and on mechanical ventilation; renal function/creatinine continues to improve with reasonable urine output and relative stability in BUN; remains on amiodarone, heparin and levophed gtts. Exam 2 Narrative: General: ill appearing male intubated/sedated and on mechanical ventilation Heart: normal S1 and S2; no rub Lungs: coarse breath sounds Abdomen: soft, nontender, nondistended, decreased bowel sounds Extremities: no cyanosis or clubbimh; no edema Skin: no rash Objective Data Vital Signs Vital Signs: Vital Signs Temp Pulse Resp BP Pulse Ox O2 Del Method FiO2 01/15/25 10:00 98.5 F 66 22 H 88/55 L 98 01/15/25 09:00 98.6 F 75 19 145/81 H 97 01/15/25 09:00 65 22 H 01/15/25 08:00 65 22 H 98 Mechanical Ventilation 30 01/15/25 08:00 68 01/15/25 08:00 30 01/15/25 08:00 98.6 F 58 L 24 H 137/76 98 01/15/25 08:00 65 137/76 01/15/25 08:00 65 22 H 01/15/25 08:00 65 22 H 01/15/25 08:00 65 137/76 01/15/25 07:34 64 96 Mechanical Ventilation 30 01/15/25 07:00 98.6 F 58 L 24 H 137/76 98 01/15/25 06:00 63 01/15/25 06:00 98.7 F 663 H 22 H 124/58 L 98 01/15/25 06:00 63 124/58 L 01/15/25 06:00 63 124/58 L 01/15/25 06:00 63 22 H 01/15/25 06:00 63 22 H 01/15/25 06:00 63 124/58 L 01/15/25 06:00 63 124/58 L 01/15/25 05:35 73 97 Mechanical Ventilation 30 01/15/25 05:00 98.9 F 58 L 29 H 122/56 L 97 01/15/25 04:00 81 01/15/25 04:00 30 01/15/25 04:00 68 29 H 98 Mechanical Ventilation 30 01/15/25 04:00 98.9 F 65 22 H 105/48 L 97 01/15/25 04:00 69 105/48 L 01/15/25 04:00 69 22 H 01/15/25 04:00 69 105/48 L 01/15/25 04:00 69 22 H 01/15/25 04:00 69 22 H 01/15/25 03:00 98.9 F 58 L 29 H 122/56 L 95 01/15/25 02:31 66 98 Mechanical Ventilation 30 01/15/25 02:16 77 24 H 01/15/25 02:16 77 24 H 01/15/25 02:00 98.9 F 57 L 24 H 119/53 L 98 01/15/25 02:00 57 L 01/15/25 02:00 57 L 119/53 L 01/15/25 02:00 57 L 119/53 L 01/15/25 02:00 57 L 24 H 01/15/25 02:00 57 L 24 H 01/15/25 01:00 98.9 F 57 L 24 H 130/60 95 01/15/25 00:30 70 25 H 01/15/25 00:00 68 29 H 98 Mechanical Ventilation 30 01/15/25 00:00 30 01/15/25 00:00 66 01/15/25 00:00 68 133/86 01/15/25 00:00 68 133/86 01/15/25 00:00 68 29 H 01/15/25 00:00 68 29 H 01/15/25 00:00 99.1 F 68 29 H 133/86 98 01/14/25 23:19 93 97 Mechanical Ventilation 30 01/14/25 23:00 99.1 F 86 22 H 126/88 95 01/14/25 22:36 75 22 H 01/14/25 22:35 75 22 H 01/14/25 22:00 71 01/14/25 22:00 99.2 F 71 22 H 122/60 95 01/14/25 22:00 71 122/60 01/14/25 22:00 71 22 H 01/14/25 22:00 71 22 H 01/14/25 22:00 69 122/60 01/14/25 21:30 73 22 H 01/14/25 21:10 92 27 H 01/14/25 21:00 99.3 F 91 24 H 109/57 L 97 01/14/25 20:18 106 H 99 Mechanical Ventilation 30 01/14/25 20:00 93 103/61 01/14/25 20:00 93 22 H 01/14/25 20:00 93 22 H 01/14/25 20:00 93 106/61 01/14/25 20:00 93 22 H 97 Mechanical Ventilation 30 01/14/25 20:00 101 H 01/14/25 20:00 99.3 F 93 22 H 106/61 99 01/14/25 20:00 30 Intake/Output Intake/Output: Intake & Output 01/12/25 01/13/25 01/14/25 01/15/25 23:59 23:59 23:59 23:59 Intake Total 1817.2 3448.6 3823.0 2434.7 Output Total 1600 1600 2050 2825 Balance 217.2 1848.6 1773.0 -390.3 Meds/Results Medications: Active Medications Generic Name Dose Route Start Last Admin Trade Name Freq PRN Reason Stop Dose Admin Acetaminophen 650 mg 01/09/25 14:52 Acetaminophen 650 Mg Suppository RECTAL Q6H PRN Mild Pain (1-3) or Fever Albuterol/Ipratropium 3 ml 01/14/25 07:39 Ipratropium 0.5 Mg/Albuterol Sulfate 2.5 Mg Ampul.Neb 3 Ml INHALATION Q6HRT PRN Wheezing Dextrose 12.5 gm 01/10/25 00:27 Dextrose 50% 25 Gm/50 Ml Syringe IV PUSH PRN PRN Hypoglycemia Protocol Glucagon 1 mg 01/10/25 00:27 Glucagon For Inj 1 Mg Vial IM PRN PRN Hypoglycemia Protocol Glucose 15 gm 01/10/25 00:27 Glucose Oral Gel 15 Gm Of Glucse In 37.5 Gm Tube PO PRN PRN Hypoglycemia Protocol Cefepime HCl 1 gm/ Sodium 50 mls @ 100 mls/hr 01/10/25 06:00 01/15/25 18:03 Chloride IVPB 01/19/25 06:29 100 mls/hr Q12H JENNY Administration Dextrose 1,000 mls @ 100 mls/hr 01/10/25 00:27 Dextrose 5% 1,000 Ml IVPB PRN PRN Hypoglycemia Protocol Amiodarone HCl/Dextrose 360 mg in 200 mls @ 16.667 mls/hr 01/11/25 07:00 01/15/25 18:03 Nexterone 360 Mg/D5w 200 Ml IV CONT 0.5 mg/min .Q12H JENNY 16.67 mls/hr 0.5 MG/MIN Administration Norepinephrine Bitartrate 8 mg in 250 mls @ 7.5 mls/hr 01/12/25 10:55 01/15/25 18:00 Levophed 8 Mg/D5w 250 Ml IV CONT 4 mcg/min .Q24H JENNY 7.5 mls/hr Protocol Titration 4 MCG/MIN Propofol 100 mls @ 9.738 mls/hr 01/12/25 10:55 01/15/25 18:00 Diprivan IV CONT 15 mcg/kg/min .[id number] JENNY 9.74 mls/hr Protocol Titration 15 MCG/KG/MIN Dexmedetomidine HCl 400 mcg in 100 mls @ 19.355 mls/hr 01/14/25 07:45 01/15/25 18:00 Precedex 400 Mcg/100 Ml IV CONT 1 mcg/kg/hr .Q5H10M JENNY 27.65 mls/hr Protocol Titration 0.7 MCG/KG/HR Sodium Chloride 250 mls @ 30 mls/hr 01/15/25 15:22 01/15/25 16:13 Normal Saline Iv IV CONT 01/15/25 23:41 30 mls/hr .Q8H20M STA Administration Insulin Aspart 3 - 6 units 01/10/25 06:00 01/15/25 18:13 Insulin Aspart (*Bkc) 100 Units/Ml SUB-Q Not Given Q6HR JENNY Protocol Multi-Ingred Cream/Lotion/Oil/Oint 1 applic 01/12/25 21:00 01/15/25 10:00 Mineral Oil/White Petrolatum Ointment EACH EYE 1 applic Q12HR JENNY Administration Pantoprazole Sodium 40 mg 01/09/25 21:00 01/15/25 10:00 Pantoprazole Sodium Iv 40 Mg Vial IV PUSH 40 mg Q12HR JENNY Administration Polyethylene Glycol 17 gm 01/12/25 10:42 01/14/25 09:00 Polyethylene Glycol 3350 17 Gm Powd.Pack PO 17 gm QAM PRN Administration Constipation Fluticasone/Salmeterol 2 puff 01/09/25 20:00 01/14/25 20:56 Fluticasone/Salmeterol 115-21 Mcg Inhaler 1 Puff INHALATION Not Given On Hold: 01/14/25 08:00 Q12HRT JENNY Senna/Docusate Sodium 1 tab 01/12/25 21:00 01/14/25 20:54 Senna/Docusate Sodium Tablet PO 1 tab HS JENNY Administration Sodium Chloride 20 ml 01/09/25 17:08 Central Line Flush IV PUSH PRN PRN after blood draws Sodium Chloride 20 ml 01/09/25 17:34 01/11/25 05:29 Central Line Flush IV PUSH 20 ml PRN PRN Administration after blood draws Radiology Results: ITS Impressions Abdomen X-Ray 01/09/25 13:38 IMPRESSION: 1: NG tube tip in the stomach. Chest/Abdomen/Pelvis CTA 01/09/25 13:59 IMPRESSION: 1. Extensive airspace disease of the right upper and lower lobe, consistent with pneumonia. 2: Bilateral pleural effusions, right greater than left. 3: Hypodense right renal masses. Cannot exclude renal cell carcinoma. Consider correlation with MRI abdomen with contrast. 4: Small pericardial effusion. Head CT 01/09/25 14:00 IMPRESSION: 1. No acute intracranial hemorrhage. No mass effect. 2. Probable chronic ischemic white matter change. Renal Ultrasound 01/09/25 19:35 IMPRESSION: No hydronephrosis or renal calculi. Indeterminate focus within the interpolar region of the right kidney, for which contrast enhanced CT or MRI (with renal mass protocol) is suggested for further evaluation. Abdomen Ultrasound 01/09/25 19:44 IMPRESSION: Limited evaluation of the pancreas secondary to overlying bowel gas Hepatomegaly with additional findings of portal hypertension, as detailed above. Chest X-Ray 01/15/25 06:19 Impression: Small bilateral pleural effusions with moderate bibasilar pulmonary edema. Support tubes, as above. Chest/Abdomen/Pelvis CT 01/15/25 09:42 IMPRESSION: 1. There is a 1.6 cm subpleural spiculated pulmonary nodule in the right lower lobe. A PET/CT and/or biopsy is recommended. 2.Interval decrease in the size of the airspace opacities scattered throughout the right lung. 3.A moderate sized consolidation persists in the right lower lobe. Recommend follow-up to resolution. 4.Small patchy opacities in the left lower lobe. 5.Small right-sided pleural effusion. 6.Tiny left-sided pleural effusion. 7.There is a stable centrilobular emphysema. 8.Redemonstration of the 1.8 cm subtle hypodense right renal mass. A renal mass MRI is recommended. 9. Small amount of fluid and fat saturated scattered throughout the abdomen and pelvis. 10. Extensive anasarca throughout the chest, abdomen and pelvis. Labs Labs: Laboratory Tests 01/15/25 03:45 01/15/25 04:11 Calcium 8.5 Magnesium 2.6 H Total Bilirubin 0.3 AST 65 H ALT 294 H Alkaline Phosphatase 56 Total Protein 4.9 L Albumin 2.7 L
[2025-01-15] MEDS: SODIUM CHLORIDE 0.9% IV 250 ML 30 ML IV CONT ×2 (11:05→16:13)
[2025-01-15] MEDS: PROPOFOL IV EMULSION 100 ML 6.49 MG IV CONT (11:20)
--- NOTE | 2025-01-15 11:22 | PCNFU ---
Nutrition Follow-Up Complete: Suboptimal Energy Intake as related to mechanical ventilation as evidenced by NPO. Goal: Meet estimated nutritional needs Patient will continue current goal. Pt current nutrition is NPO. Last recorded weight is 110.3 kg, up from 99 kg on admit. Bowel Motility: No BM reported. Labs Reviewed: Glu 156, Alb 2.7, Mg 2.6, BUN 92, Cr 1.64 Meds Noted: Precedex, Protonix, Levophed, Propofol 10 mcgs, Amiodarone. Skin: WNL Additional Notes: Patient remains on mechanical vent. Tube feedings discontinued, spoke with [employer] Supervisor today. Plans to continue NPO status at this time. Propofol providing an additional 171 kcal. Will monitor weight, labs, skin, diet orders, meds every Tuesday and Tuesday.
--- NOTE | 2025-01-15 14:57 | PCRCNOTE ---
01/09/2025 @ 1700 continous nebulizer tx given. verbal order given by dr ward
[2025-01-15 15:00] LABS: Hematocrit 24.0 % (42.0-52.0); Hemoglobin 7.3 g/dL (14.0-18.0); Mean Corpuscular HGB Conc 30.4 g/dl (32-36); Mean Corpuscular Hemoglobin 28.2 pg (26-34); Mean Corpuscular Volume 92.7 fl (80-100); Platelet Count Result 87 k/mm3 (150-375); Red Blood Count 2.59 M/mm3 (4.6-6.20); White Blood Count 9.8 K/mm3 (4.5-10.0)
[2025-01-15] MEDS: dexmedeTOMIDine 400 MCG/100 ML 400 MCG/100 ML BAG 33.18 MCG IV CONT (20:00)
[2025-01-15] MEDS: SENNA/DOCUSATE SODIUM TABLET 1 TAB PO (20:31)
[2025-01-15 20:41] LABS: Hematocrit 26.4 % (42.0-52.0); Hemoglobin 8.2 g/dL (14.0-18.0); Mean Corpuscular HGB Conc 31.1 g/dl (32-36); Mean Corpuscular Hemoglobin 28.2 pg (26-34); Mean Corpuscular Volume 90.7 fl (80-100); Platelet Count Result 88 k/mm3 (150-375); Red Blood Count 2.91 M/mm3 (4.6-6.20); White Blood Count 9.9 K/mm3 (4.5-10.0)
[2025-01-16] VITALS (65 sets, daily range): BP systolic 75–144; BP diastolic 42–86; PULSE 53–123; RESP 16–38; TEMP 36.5–37.5; O2SAT 90–100
[2025-01-16] MEDS: PROPOFOL IV EMULSION 100 ML 6.49 MG IV CONT
[2025-01-16] MEDS: dexmedeTOMIDine 400 MCG/100 ML 400 MCG/100 ML BAG 33.18 MCG IV CONT ×3 (02:00→04:18)
[2025-01-16 03:57] LABS: Hematocrit 25.4 % (42.0-52.0); Hemoglobin 7.8 g/dL (14.0-18.0); Mean Corpuscular HGB Conc 30.7 g/dl (32-36); Mean Corpuscular Hemoglobin 28.2 pg (26-34); Mean Corpuscular Volume 91.7 fl (80-100); Platelet Count Result 88 k/mm3 (150-375); Red Blood Count 2.77 M/mm3 (4.6-6.20); White Blood Count 8.8 K/mm3 (4.5-10.0)
[2025-01-16] MEDS: NOREPINEPHRINE 8 MG/D5W 250 ML 8 MG/250 ML BAG 7.5 MG IV CONT (04:00)
[2025-01-16 04:15] LABS: Alanine Aminotransferase 201 U/L (6-50); Albumin Level 2.4 g/dL (3.5-5.1); Alkaline Phosphatase 55 U/L (38-126); Anion Gap 5 mmol/L (4-12); Aspartate Amino Transferase 48 U/L (17-59); Bilirubin,Total 0.5 mg/dL (0.2-1.3); Blood Urea Nitrogen 78 mg/dL (9-20); Calcium 8.4 mg/dL (8.4-10.2); Carbon Dioxide 24 mmol/L (22-30); Chloride 114 mmol/L (98-107); Estimated CRCL calculation 57 ml/min; Estimated Glomerular Filt Rate 48; Glucose 123 mg/dL (65-110); Magnesium 2.4 mg/dL (1.6-2.3); Potassium 3.7 mmol/L (3.4-5.0); Sodium 143 mmol/L (137-145); Total Protein 4.6 g/dL (6.3-8.2); Triglycerides 171 mg/dL (<150)
[2025-01-16 04:53] LABS: Alveolar/Arterial O2 Gradient 99.6 mmHg; Carboxyhemoglobin 1.6 % THb (0-2.0); Fractional Inspired Oxygen 30 %; HCO3 ABG 22.6 mEq/l (22.0-26.0); Methemoglobin ABG 0.1 %THb (0-1.5); Oxygen Content ABG 10.7 %vol (16.0-22.0); Oxygen Saturation ABG 95.2 % (95.0-100.0); PCO2 ABG 34.9 mmHg (35.0-45.0); PO2 ABG 73.3 mmHg (80.0-100.0); PO2 FiO2 Ratio Arterial Blood 2.44 %; Reduced Hemoglobin 5.6 %THb (0-5.0)
[2025-01-16 04:56] LABS: Modified Allen's Test Pass; Site Drawn ARTLINE
[2025-01-16 04:57] LABS: Arterial Blood Gas Tidal Volume 480 ml; Arterial Blood Gas Ventilator rate 22 /MIN
[2025-01-16] MEDS: CEFEPIME 1 GM in SODIUM CHLORIDE 0.9% IV 50 ML 100 ML IVPB ×2 (07:01→17:33)
[2025-01-16] MEDS: PANTOPRAZOLE SODIUM IV 40 MG VIAL IV PUSH ×2 (08:06→20:54)
[2025-01-16] MEDS: MINERAL OIL/WHITE PETROLATUM OINTMENT 1 APPLIC EACH EYE ×2 (08:07→20:25)
[2025-01-16] MEDS: KCL 40 MEQ/WATER 100 ML 100 ML 25 ML IVPB (08:15)
[2025-01-16] MEDS: FUROSEMIDE INJ 40 MG/4 ML VIAL IV PUSH (08:15)
[2025-01-16] MEDS: dexmedeTOMIDine 400 MCG/100 ML 400 MCG/100 ML BAG 19.36 MCG IV CONT (08:42)
--- NOTE | 2025-01-16 10:00 | WPDINTPN ---
Progress Note: A&P Assessment and Plan (1) Acute hypoxic respiratory failure: Code(s): J96.01 - Acute respiratory failure with hypoxia Status: Acute Assessment and Plan: 01/09: Patient presented the ED via EMS after the called 911 as patient has been laying in bed with agonal breathing for the last 2 days, upon arrival of the EMS patient was unresponsive, with agonal breaths. Bag-mask ventilation was started patient was hypotensive, in the ER patient had a GCS of 3 and was emergently intubated. Post intubation patient is on O2 sats were in the upper 60s to 70s. Patient was in a PEEP of 15 and 100% FiO2 -01/09: I was asked to come down to the ER to evaluate the patient, patient was given rocuronium, and revealed emergently to the ICU, -01/09: emergent bronch was performed in the ICU with significant thick mucus plugs in the right mainstem, right upper lobe and right lower lobe. Suction and cleared most of the secretions with the bronchoscope.O2 sats improved to 95-99% -chest x-ray and ABGs reviewed -ventilator adjusted peep is at 8, FiO2 at 30% -chest physiotherapy per RT -status post Pulmozyme and Mucomyst treatment, secretions much improved -continue DuoNebs p.r.n. -continue Symbicort inhaler -status post course of Solu-Medrol -currently on propofol and Precedex infusion. Will wean down propofol 01/16 weaning trial was performed and patient did adequate with adequate RSBI in ABG but patient is due for a EGD this afternoon hence will leave him on the ventilator. Also with upper GI bleed will not be able to use BiPAP once extubated. IV Lasix given 01/09: CT PE protocol, abdomen and pelvis with no evidence of pulmonary embolism, extensive right upper lobe and lower lobe airspace disease consistent with pneumonia. Bilateral pleural effusion, right greater than left. Hyperdense right renal masses, cannot exclude renal cell carcinoma, consider correlation with MRI abdomen with contrast. Small pericardial (2) Bleeding: Code(s): R58 - Hemorrhage, not elsewhere classified Status: Acute Assessment and Plan: 01/15 Increase vasopressor requirement over last 24 hours. Hemoglobin this morning showed dropped to 7.1. Patient is on anticoagulation. I suspect petition bleeding although there is no obvious clinical sign. Patient has not any bowel movement. I aspirated tube feed and it does look dark but not conclusive of bleeding. Tube feeds were held, OG tube to L IS, and patient was made NPO. Heparin was discontinued and CBC was monitored. Patient was transfuse 2 units of PRBC over last [address] scan of abdomen pelvis did not show any hematoma or retroperitoneal hemorrhage. 01/16 patient had dark bowel movement today and also OG tube shows blood-tinged output consistent with upper GI bleed. - Continue to monitor hemoglobin -PPI IV q.12 hours GI consulted and patient is scheduled for EGD today (3) Septic shock: Code(s): A41.9 - Sepsis, unspecified organism; R65.21 - Severe sepsis with septic shock Status: Acute Assessment and Plan: Patient with hypotension, acute respiratory failure, lactic acidosis, tachycardia -UA was negative -patient was treated with IV fluids and started on vasopressors. Patient eventually came off of vasopressors but Levophed was resumed on 01/14 -will maintain MAP > 65 mm or SBP > 100 mmHg at all times for adequate end organ perfusion -continue cefepime. Completed course of doxycycline, Flagyl discontinued on 01/12 -01/09: Blood culture -Gram-positive cocci which was Staph epidermis -01/09: Sputum culture -pansensitive Pseudomonas -01/09: Urine Legionella pending -01/11: Repeat blood cultures -preliminary report is negative x2 -01/09: Urine Legionella is pending (4) Pneumonia: Qualifiers: Laterality: right Lung location: unspecified part of lung Pneumonia type: due to unspecified organism Qualified Code(s): J18.9 - Pneumonia, unspecified organism Code(s): J18.9 - Pneumonia, unspecified organism Status: Acute Assessment and Plan: Likely pneumonia on of the right upper and lower lobe -COVID, RSV and influenza were NEGATIVE -continue antibiotics as above -currently on mechanical ventilation (5) Acute exacerbation of chronic obstructive pulmonary disease: Code(s): J44.1 - Chronic obstructive pulmonary disease with (acute) exacerbation Status: Acute Assessment and Plan: History of is COPD with emphysema seen on CT scan of the chest -continue bronchodilators as above (6) Atrial fibrillation: Qualifiers: Atrial fibrillation type: unspecified Qualified Code(s): I48.91 - Unspecified atrial fibrillation Code(s): I48.91 - Unspecified atrial fibrillation Status: Acute Assessment and Plan: History of atrial flutter/fibrillation patient is on apixaban at home, hold apixaban for now -currently in AFib, RVR with heart rates in the 70s -continue amiodarone infusion - 01/15 discontinued heparin infusion due to upper GI bleed (7) Polysubstance use disorder: Code(s): F19.90 - Other psychoactive substance use, unspecified, uncomplicated Status: Acute Assessment and Plan: Urine tox screen was positive for cannabis and cocaine 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 (8) Transaminitis: Code(s): R74.01 - Elevation of levels of liver transaminase levels Status: Acute Assessment and Plan: Significantly elevated LFTs, -RUQ ultrasound shows hepatomegaly with additional findings of portal hypertension -hepatitis panel was negative -could also be related to hypoxia, hypotension/shock -continue to monitor liver function tests (9) Elevated troponin: Code(s): R79.89 - Other specified abnormal findings of blood chemistry Status: Acute Assessment and Plan: Elevated troponin 0.215 -could be related to type 2 infarct, is EKG did not show any ST elevation -troponins were flat, 01/10/2025: Echocardiogram Summary 1. Complete two-dimensional, color flow and Doppler transthoracic echocardiogram is performed. 2. Somewhat challenging exam with patient on ventilator support. 3. Normal left ventricular size with overall good systolic function, paradoxical septal motion consistent with bundle branch block. EF 55-60% 4. Right ventricular enlargement with systolic dysfunction. 5. Mild tricuspid regurgitation, estimated RV systolic pressure 51 mmHg. 6. Sclerotic aortic valve which exhibits preserved leaflet excursion. 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 on tobacco cessation once he is extubated (11) CHF (congestive heart failure): Qualifiers: Heart failure type: unspecified Heart failure chronicity: chronic Qualified Code(s): I50.9 - Heart failure, unspecified Code(s): I50.9 - Heart failure, unspecified Status: Acute Assessment and Plan: Patient has a history of CHF, likely HFpEF -proBNP > 13542 Echocardiogram as above, EF of 55%, RVSP 51 mmHg, moderate pulmonary hypertension likely related to COPD -chest x-ray does not show pulmonary edema -Lasix IV given 01/16 (12) Electrolyte imbalance: Code(s): E87.8 - Other disorders of electrolyte and fluid balance, not elsewhere classified Status: Acute Assessment and Plan: Potassium replacement ordered (13) Acute renal failure: Code(s): N17.9 - Acute kidney failure, unspecified Status: Acute Assessment and Plan: 01/09/2025: Patient presented with creatinine of 3.81 (baseline 1.10-1.23). Multifactorial likely related to infection, sepsis, shock, medications, polysubstance abuse -Adequately fluid-resuscitated -Urine lytes showed prerenal picture -renal ultrasound with no hydronephrosis or calculi, intermittent focus within the interpolar region of the right kidney for which contrast enhanced CT or MRI is suggested -urine eosinophils negative -CPK levels are normal Continue to monitor renal function, electrolytes and urine output Plan DVT prophylaxis: Patient was on Heparin infusion Stress ulcer prophylaxis: Protonix Nutrition: Tolerating tube feeds. P.r.n. MiraLax, Colace Code Status: DNR Critical Care Time Spent: 35 minutes Due to a high probability of clinically significant, life threatening deterioration, the patient required my highest level of preparedness to intervene emergently and I personally spent this critical care time directly and personally managing the patient. This critical care time included obtaining a history; examining the patient; pulse oximetry; ordering and review of studies; arranging urgent treatment with development of a management plan; evaluation of patient's response to treatment; frequent reassessment; and discussions with other providers. It was exclusive of separately billable procedures and treating other patients and teaching time. Please see Assessment and Plan section and the rest of the note for further information on patient assessment and treatment This dictation may have been done utilizing a voice recognition system. Attempts have been made to correct errors. However, there may be uncorrected grammatical, spelling, and recognitions errors present. Subjective Date/time seen: 01/16/25 Overnight events reviewed. Afebrile Continues to be on mechanical ventilation 30% FiO2 Continues to be on Levophed at 3 mics Continues to be sedated with for propofol and Precedex On amiodarone infusion Blood-tinged output from OG tube Tube feeds on hold Good urine output Follows commands and nodes to questions Interval history: Reason for consult: Acute hypoxic respiratory failure, altered mental status, pneumonia, acute kidney injury, hyperkalemia, severe sepsis/shock, transaminitis 01/09: Bronchoscopy Review of Systems Review of Systems: ROS unobtainable: Yes unobtainable due to endotracheal tube, unobtainable due to medical condition and unobtainable due to mental status Exam Narrative: General: Patient intubated and sedated, in no acute distress at this time HEENT:? Pupils equally reactive, sclera is clear, ETT in place Neck:? Supple Respiratory:? Coarse breath sounds bilaterally R > L, decreased breath sounds at right base, distant breath sounds Cardiac:? Irregularly irregular, tachycardia Abdomen:? Soft, nontender, nondistended, hypoactive bowel sounds blood-tinged output from OG tube Extremities:? Extremities are warm, palpable pedal pulse Neuro:? Patient intubated, sedated, he opens his eyes and follow simple commands bilaterally with all 4 extremities, nodes head appropriately to questions Skin:? No skin lesions noted Psych:? Unable to assess at this time Objective Data Vital Signs Vital Signs: Vital Signs - 24 hr 01/15/25 11:00 01/15/25 11:04 01/15/25 11:15 Temperature 36.6 C 36.6 C Pulse Rate 59 L 59 L 75 Respiratory Rate 22 H 22 H Blood Pressure 106/66 132/67 101/62 Pulse Oximetry 95 95 Oxygen Delivery Fraction of Inspired Oxygen 01/15/25 11:20 01/15/25 11:20 01/15/25 11:20 Temperature 36.6 C Pulse Rate 72 72 67 Respiratory Rate 23 H 23 H 20 Blood Pressure 122/65 Pulse Oximetry 92 Oxygen Delivery Fraction of Inspired Oxygen 01/15/25 12:00 01/15/25 12:00 01/15/25 12:00 Temperature Pulse Rate 56 L 59 L 56 L Respiratory Rate 22 H Blood Pressure 102/70 Pulse Oximetry Oxygen Delivery Fraction of Inspired Oxygen 01/15/25 12:00 01/15/25 12:00 01/15/25 12:00 Temperature Pulse Rate 58 L 58 L Respiratory Rate 22 H Blood Pressure 102/70 Pulse Oximetry 94 Oxygen Delivery Mechanical Ventilation Fraction of Inspired Oxygen 30 30 01/15/25 12:00 01/15/25 12:11 01/15/25 12:20 Temperature 36.6 C 36.6 C Pulse Rate 56 L 66 59 L Respiratory Rate 29 H 22 H Blood Pressure 107/68 125/61 Pulse Oximetry 94 96 95 Oxygen Delivery Mechanical Ventilation Fraction of Inspired Oxygen 30 01/15/25 12:23 01/15/25 13:00 01/15/25 13:20 Temperature 36.6 C 36.6 C Pulse Rate 54 L 56 L 58 L Respiratory Rate 22 H 24 H 24 H Blood Pressure 104/53 L 127/61 Pulse Oximetry 95 94 Oxygen Delivery Fraction of Inspired Oxygen 01/15/25 13:42 01/15/25 14:00 01/15/25 14:00 Temperature Pulse Rate 58 L 61 58 L Respiratory Rate 23 H Blood Pressure 122/77 101/66 Pulse Oximetry Oxygen Delivery Fraction of Inspired Oxygen 01/15/25 14:00 01/15/25 14:00 01/15/25 14:00 Temperature Pulse Rate 58 L 58 L 76 Respiratory Rate 22 H Blood Pressure 101/66 Pulse Oximetry Oxygen Delivery Fraction of Inspired Oxygen 01/15/25 14:00 01/15/25 15:00 01/15/25 15:00 Temperature 36.6 C 36.7 C Pulse Rate 56 L 55 L 56 L Respiratory Rate 23 H 24 H 26 H Blood Pressure 97/66 L 115/57 L Pulse Oximetry 95 95 Oxygen Delivery Fraction of Inspired Oxygen 01/15/25 15:57 01/15/25 16:00 01/15/25 16:00 Temperature Pulse Rate 58 L 58 L 56 L Respiratory Rate 20 27 H Blood Pressure Pulse Oximetry 96 97 Oxygen Delivery Mechanical Ventilation Mechanical Ventilation Fraction of Inspired Oxygen 30 30 01/15/25 16:00 01/15/25 16:00 01/15/25 16:00 Temperature 36.7 C Pulse Rate 56 L 54 L Respiratory Rate 27 H Blood Pressure 114/74 Pulse Oximetry 97 Oxygen Delivery Fraction of Inspired Oxygen 30 01/15/25 16:00 01/15/25 16:00 01/15/25 16:00 Temperature Pulse Rate 56 L 56 L 56 L Respiratory Rate 29 H Blood Pressure 107/72 107/72 Pulse Oximetry Oxygen Delivery Fraction of Inspired Oxygen 01/15/25 16:01 01/15/25 16:20 01/15/25 16:37 Temperature 36.7 C 36.7 C Pulse Rate 61 59 L 59 L Respiratory Rate 22 H 28 H 19 Blood Pressure 110/53 L 108/68 Pulse Oximetry 92 97 Oxygen Delivery Fraction of Inspired Oxygen 01/15/25 17:00 01/15/25 17:37 01/15/25 17:49 Temperature 36.7 C 36.7 C Pulse Rate 56 L 56 L 56 L Respiratory Rate 30 H 25 H Blood Pressure 119/57 L 123/80 123/80 Pulse Oximetry 96 97 Oxygen Delivery Fraction of Inspired Oxygen 01/15/25 18:00 01/15/25 18:00 01/15/25 18:00 Temperature 36.6 C Pulse Rate 55 L 53 L 55 L Respiratory Rate 22 H Blood Pressure 107/68 128/77 Pulse Oximetry 97 Oxygen Delivery Fraction of Inspired Oxygen 01/15/25 18:00 01/15/25 18:00 01/15/25 18:01 Temperature Pulse Rate 55 L 53 L 54 L Respiratory Rate 20 22 H Blood Pressure 128/77 Pulse Oximetry Oxygen Delivery Fraction of Inspired Oxygen 01/15/25 18:03 01/15/25 19:33 01/15/25 19:39 Temperature Pulse Rate 54 L 55 L 55 L Respiratory Rate 22 H Blood Pressure 128/77 Pulse Oximetry 95 Oxygen Delivery Mechanical Ventilation Fraction of Inspired Oxygen 30 01/15/25 20:00 01/15/25 20:00 01/15/25 20:00 Temperature 36.7 C Pulse Rate 55 L 53 L Respiratory Rate 22 H 22 H Blood Pressure 115/55 L Pulse Oximetry 95 Oxygen Delivery Fraction of Inspired Oxygen 30 01/15/25 20:00 01/15/25 20:00 01/15/25 20:00 Temperature Pulse Rate 53 L 53 L 55 L Respiratory Rate 22 H 22 H Blood Pressure 114/54 L Pulse Oximetry Oxygen Delivery Fraction of Inspired Oxygen 01/15/25 20:00 01/15/25 20:30 01/15/25 20:46 Temperature Pulse Rate 53 L 55 L 56 L Respiratory Rate Blood Pressure 85/50 L Pulse Oximetry 96 Oxygen Delivery Mechanical Ventilation Fraction of Inspired Oxygen 30 01/15/25 22:00 01/15/25 22:00 01/15/25 22:00 Temperature 36.9 C Pulse Rate 56 L 56 L 56 L Respiratory Rate 22 H 22 H Blood Pressure 112/52 L Pulse Oximetry 94 Oxygen Delivery Fraction of Inspired Oxygen 01/15/25 22:00 01/15/25 22:00 01/15/25 22:00 Temperature Pulse Rate 56 L 56 L 56 L Respiratory Rate 22 H Blood Pressure 112/52 L Pulse Oximetry Oxygen Delivery Fraction of Inspired Oxygen 01/15/25 22:32 01/16/25 00:00 01/16/25 00:00 Temperature Pulse Rate 56 L 57 L 57 L Respiratory Rate 22 H Blood Pressure Pulse Oximetry 96 97 Oxygen Delivery Mechanical Ventilation Mechanical Ventilation Fraction of Inspired Oxygen 30 30 01/16/25 00:00 01/16/25 00:00 01/16/25 00:00 Temperature 36.9 C Pulse Rate 57 L 57 L Respiratory Rate 22 H Blood Pressure 107/51 L 113/54 L Pulse Oximetry 95 Oxygen Delivery Fraction of Inspired Oxygen 30 01/16/25 00:00 01/16/25 00:00 01/16/25 00:00 Temperature Pulse Rate 57 L 57 L 57 L Respiratory Rate 22 H 22 H 22 H Blood Pressure Pulse Oximetry Oxygen Delivery Fraction of Inspired Oxygen 01/16/25 00:00 01/16/25 00:00 01/16/25 02:00 Temperature Pulse Rate 57 L 57 L 56 L Respiratory Rate 22 H Blood Pressure 113/53 L Pulse Oximetry Oxygen Delivery Fraction of Inspired Oxygen 01/16/25 02:00 01/16/25 02:00 01/16/25 02:00 Temperature 37.1 C Pulse Rate 56 L 58 L 58 L Respiratory Rate 22 H 22 H Blood Pressure 105/49 L 105/51 L Pulse Oximetry 93 Oxygen Delivery Fraction of Inspired Oxygen 01/16/25 02:00 01/16/25 02:00 01/16/25 02:00 Temperature Pulse Rate 58 L 58 L 58 L Respiratory Rate 22 H 22 H Blood Pressure 105/53 L Pulse Oximetry Oxygen Delivery Fraction of Inspired Oxygen 01/16/25 02:05 01/16/25 04:00 01/16/25 04:00 Temperature Pulse Rate 54 L 54 L 56 L Respiratory Rate 22 H Blood Pressure Pulse Oximetry 93 93 Oxygen Delivery Mechanical Ventilation Mechanical Ventilation Fraction of Inspired Oxygen 30 30 01/16/25 04:00 01/16/25 04:00 01/16/25 04:00 Temperature 37.2 C Pulse Rate 56 L 56 L Respiratory Rate 26 H Blood Pressure 96/45 L 96/45 L Pulse Oximetry 92 Oxygen Delivery Fraction of Inspired Oxygen 30 01/16/25 04:00 01/16/25 04:00 01/16/25 04:00 Temperature Pulse Rate 56 L 56 L 56 L Respiratory Rate 26 H 24 H Blood Pressure 96/45 L Pulse Oximetry Oxygen Delivery Fraction of Inspired Oxygen 01/16/25 04:00 01/16/25 04:18 01/16/25 04:18 Temperature Pulse Rate 56 L 56 L 56 L Respiratory Rate 22 H 22 H Blood Pressure 96/45 L Pulse Oximetry Oxygen Delivery Fraction of Inspired Oxygen 01/16/25 06:00 01/16/25 06:00 01/16/25 06:00 Temperature 36.8 C Pulse Rate 56 L 58 L 58 L Respiratory Rate 22 H 22 H Blood Pressure 113/55 L Pulse Oximetry 94 Oxygen Delivery Fraction of Inspired Oxygen 01/16/25 06:00 01/16/25 06:00 01/16/25 06:00 Temperature Pulse Rate 58 L 58 L 58 L Respiratory Rate 22 H Blood Pressure 113/55 L 113/55 L Pulse Oximetry Oxygen Delivery Fraction of Inspired Oxygen 01/16/25 06:00 01/16/25 07:48 01/16/25 08:00 Temperature 37.3 C 37.1 C Pulse Rate 58 L 72 70 Respiratory Rate 23 H 16 Blood Pressure 113/53 L 95/50 L Pulse Oximetry 94 98 90 Oxygen Delivery Mechanical Ventilation Fraction of Inspired Oxygen 30 01/16/25 08:00 01/16/25 08:00 01/16/25 08:00 Temperature Pulse Rate 78 79 74 Respiratory Rate 22 H 22 H Blood Pressure 117/65 Pulse Oximetry Oxygen Delivery Fraction of Inspired Oxygen 01/16/25 08:00 01/16/25 08:23 01/16/25 08:32 Temperature Pulse Rate 79 73 Respiratory Rate 16 Blood Pressure 117/65 Pulse Oximetry Oxygen Delivery Mechanical Ventilation Fraction of Inspired Oxygen 30 01/16/25 08:42 01/16/25 09:25 01/16/25 09:52 Temperature Pulse Rate 89 106 H 116 H Respiratory Rate 19 Blood Pressure 120/80 Pulse Oximetry 98 Oxygen Delivery Mechanical Ventilation Fraction of Inspired Oxygen 30 01/16/25 09:55 01/16/25 09:57 Temperature Pulse Rate 116 H 117 H Respiratory Rate 28 H 26 H Blood Pressure Pulse Oximetry Oxygen Delivery Fraction of Inspired Oxygen Intake/Output Intake/Output: Intake & Output 01/13/25 01/14/25 01/15/25 01/16/25 23:59 23:59 23:59 23:59 Intake Total 3448.6 3823.0 3076.3 645.0 Output Total 1600 2049 2825 1625 Balance 1848.6 1773.0 251.3 -980.0 Meds/Results Medications: Active Medications Generic Name Dose Route Start Last Admin Trade Name Freq PRN Reason Stop Dose Admin Acetaminophen 650 mg 01/09/25 14:52 Acetaminophen 650 Mg Suppository RECTAL Q6H PRN Mild Pain (1-3) or Fever Albuterol/Ipratropium 3 ml 01/14/25 07:39 Ipratropium 0.5 Mg/Albuterol Sulfate 2.5 Mg Ampul.Neb 3 Ml INHALATION Q6HRT PRN Wheezing Dextrose 12.5 gm 01/10/25 00:27 Dextrose 50% 25 Gm/50 Ml Syringe IV PUSH PRN PRN Hypoglycemia Protocol Glucagon 1 mg 01/10/25 00:27 Glucagon For Inj 1 Mg Vial IM PRN PRN Hypoglycemia Protocol Glucose 15 gm 01/10/25 00:27 Glucose Oral Gel 15 Gm Of Glucse In 37.5 Gm Tube PO PRN PRN Hypoglycemia Protocol Cefepime HCl 1 gm/ Sodium 50 mls @ 100 mls/hr 01/10/25 06:00 01/16/25 08:25 Chloride IVPB 01/19/25 06:29 Infused Q12H JENNY Infusion Dextrose 1,000 mls @ 100 mls/hr 01/10/25 00:27 Dextrose 5% 1,000 Ml IVPB PRN PRN Hypoglycemia Protocol Amiodarone HCl/Dextrose 360 mg in 200 mls @ 16.667 mls/hr 01/11/25 07:00 01/16/25 08:00 Nexterone 360 Mg/D5w 200 Ml IV CONT 0.5 mg/min .Q12H JENNY 16.67 mls/hr 0.5 MG/MIN Infusion Norepinephrine Bitartrate 8 mg in 250 mls @ 1.875 mls/hr 01/12/25 10:55 01/16/25 09:25 Levophed 8 Mg/D5w 250 Ml IV CONT 1 mcg/min .Q24H JENNY 1.88 mls/hr Protocol Titration 1 MCG/MIN Propofol 100 mls @ 5.194 mls/hr 01/12/25 10:55 01/16/25 09:55 Diprivan IV CONT 8 mcg/kg/min .[id number] JENNY 5.19 mls/hr Protocol Titration 8 MCG/KG/MIN Dexmedetomidine HCl 400 mcg in 100 mls @ 27.65 mls/hr 01/14/25 07:45 01/16/25 09:57 Precedex 400 Mcg/100 Ml IV CONT 1 mcg/kg/hr .Q3H37M JENNY 27.65 mls/hr Protocol Titration 1 MCG/KG/HR Potassium Chloride 100 mls @ 25 mls/hr 01/16/25 08:15 01/16/25 08:15 Kcl 40 Meq/Water 100 Ml IVPB 01/16/25 12:14 25 mls/hr ONCE ONE Administration Insulin Aspart 3 - 6 units 01/10/25 06:00 01/16/25 07:02 Insulin Aspart (*Bkc) 100 Units/Ml SUB-Q Not Given Q6HR JENNY Protocol Multi-Ingred Cream/Lotion/Oil/Oint 1 applic 01/12/25 21:00 01/16/25 08:07 Mineral Oil/White Petrolatum Ointment EACH EYE 1 applic Q12HR JENNY Administration Pantoprazole Sodium 40 mg 01/09/25 21:00 01/16/25 08:06 Pantoprazole Sodium Iv 40 Mg Vial IV PUSH 40 mg Q12HR JENNY Administration Polyethylene Glycol 17 gm 01/12/25 10:42 01/14/25 09:00 Polyethylene Glycol 3350 17 Gm Powd.Pack PO 17 gm QAM PRN Administration Constipation Fluticasone/Salmeterol 2 puff 01/09/25 20:00 01/14/25 20:56 Fluticasone/Salmeterol 115-21 Mcg Inhaler 1 Puff INHALATION Not Given On Hold: 01/14/25 08:00 Q12HRT JENNY Senna/Docusate Sodium 1 tab 01/12/25 21:00 01/15/25 20:31 Senna/Docusate Sodium Tablet PO 1 tab HS JENNY Administration Sodium Chloride 20 ml 01/09/25 17:08 Central Line Flush IV PUSH PRN PRN after blood draws Sodium Chloride 20 ml 01/09/25 17:34 01/11/25 05:29 Central Line Flush IV PUSH 20 ml PRN PRN Administration after blood draws Radiology Results: ITS Impressions Abdomen X-Ray 01/09/25 13:38 IMPRESSION: 1: NG tube tip in the stomach. Chest/Abdomen/Pelvis CTA 01/09/25 13:59 IMPRESSION: 1. Extensive airspace disease of the right upper and lower lobe, consistent with pneumonia. 2: Bilateral pleural effusions, right greater than left. 3: Hypodense right renal masses. Cannot exclude renal cell carcinoma. Consider correlation with MRI abdomen with contrast. 4: Small pericardial effusion. Head CT 01/09/25 14:00 IMPRESSION: 1. No acute intracranial hemorrhage. No mass effect. 2. Probable chronic ischemic white matter change. Renal Ultrasound 01/09/25 19:35 IMPRESSION: No hydronephrosis or renal calculi. Indeterminate focus within the interpolar region of the right kidney, for which contrast enhanced CT or MRI (with renal mass protocol) is suggested for further evaluation. Abdomen Ultrasound 01/09/25 19:44 IMPRESSION: Limited evaluation of the pancreas secondary to overlying bowel gas Hepatomegaly with additional findings of portal hypertension, as detailed above. Chest/Abdomen/Pelvis CT 01/15/25 09:42 IMPRESSION: 1. There is a 1.6 cm subpleural spiculated pulmonary nodule in the right lower lobe. A PET/CT and/or biopsy is recommended. 2.Interval decrease in the size of the airspace opacities scattered throughout the right lung. 3.A moderate sized consolidation persists in the right lower lobe. Recommend follow-up to resolution. 4.Small patchy opacities in the left lower lobe. 5.Small right-sided pleural effusion. 6.Tiny left-sided pleural effusion. 7.There is a stable centrilobular emphysema. 8.Redemonstration of the 1.8 cm subtle hypodense right renal mass. A renal mass MRI is recommended. 9. Small amount of fluid and fat saturated scattered throughout the abdomen and pelvis. 10. Extensive anasarca throughout the chest, abdomen and pelvis. Chest X-Ray 01/16/25 06:14 Impression: Small bilateral pleural effusions with mild bibasilar pulmonary edema, right worse than left. Support tubes, as above. Labs Labs: Laboratory Results - last 24 hr 01/15/25 01/15/25 01/15/25 08:06 11:29 14:52 WBC 9.8 RBC 2.59 L Hgb 7.3 L Hct 24.0 L MCV 92.7 MCH 28.2 MCHC 30.4 L RDW 20.5 H Plt Count 87 L MPV 11.5 H Puncture Site ABG pH ABG pCO2 ABG pO2 ABG PO2/FiO2 Ratio ABG HCO3 ABG O2 Saturation ABG O2 Content ABG Base Excess A-a Gradient Oxyhemoglobin Carboxyhemoglobin Methemoglobin Reduced Hemoglobin Total Hemoglobin O2 Delivery Device O2 Liters/Min Minute Volume Vent Rate Vent Mode FiO2 Tidal Volume PEEP Peak Inspir Pressure Pressure Support Sodium Potassium Chloride Carbon Dioxide Anion Gap BUN Creatinine Estim Creat Clear Calc Estimated GFR Glucose POC Capillary Glucose 119 H Calcium Magnesium Total Bilirubin AST ALT Alkaline Phosphatase Total Protein Albumin Triglycerides Blood Type AB Positive Antibody Screen Negative Crossmatch See Detail 01/15/25 01/16/25 01/16/25 20:22 01:08 03:47 WBC 9.9 8.8 RBC 2.91 L 2.77 L Hgb 8.2 L 7.8 L Hct 26.4 L 25.4 L MCV 90.7 91.7 MCH 28.2 28.2 MCHC 31.1 L 30.7 L RDW 20.0 H 20.4 H Plt Count 88 L 88 L MPV 11.7 H 11.5 H Puncture Site ABG pH ABG pCO2 ABG pO2 ABG PO2/FiO2 Ratio ABG HCO3 ABG O2 Saturation ABG O2 Content ABG Base Excess A-a Gradient Oxyhemoglobin Carboxyhemoglobin Methemoglobin Reduced Hemoglobin Total Hemoglobin O2 Delivery Device O2 Liters/Min Minute Volume Vent Rate Vent Mode FiO2 Tidal Volume PEEP Peak Inspir Pressure Pressure Support Sodium 143 Potassium 3.7 Chloride 114 H Carbon Dioxide 24 Anion Gap 5 BUN 78 H D Creatinine 1.46 H Estim Creat Clear Calc 57 Estimated GFR 48 L Glucose 123 H POC Capillary Glucose 98 Calcium 8.4 Magnesium 2.4 H Total Bilirubin 0.5 AST 48 ALT 201 H Alkaline Phosphatase 55 Total Protein 4.6 L Albumin 2.4 L Triglycerides 171 H Blood Type Antibody Screen Crossmatch 01/16/25 04:42 WBC RBC Hgb Hct MCV MCH MCHC RDW Plt Count MPV Puncture Site Artline ABG pH 7.429 ABG pCO2 34.9 L ABG pO2 73.3 L ABG PO2/FiO2 Ratio 2.44 ABG HCO3 22.6 ABG O2 Saturation 95.2 ABG O2 Content 10.7 L ABG Base Excess -1.5 A-a Gradient 99.6 Oxyhemoglobin 92.7 Carboxyhemoglobin 1.6 Methemoglobin 0.1 Reduced Hemoglobin 5.6 H Total Hemoglobin 8.1 L O2 Delivery Device Ventilator O2 Liters/Min Not Reportable Minute Volume Not Reportable Vent Rate 22 Vent Mode Cmv FiO2 30 Tidal Volume 480 PEEP 8 Peak Inspir Pressure Not Reportable Pressure Support Not Reportable Sodium Potassium Chloride Carbon Dioxide Anion Gap BUN Creatinine Estim Creat Clear Calc Estimated GFR Glucose POC Capillary Glucose Calcium Magnesium Total Bilirubin AST ALT Alkaline Phosphatase Total Protein Albumin Triglycerides Blood Type Antibody Screen Crossmatch Quality VTE Prophylaxis VTE prophylaxis: mechanical ordered
[2025-01-16 10:18] LABS: Alveolar/Arterial O2 Gradient 101.1 mmHg; Fractional Inspired Oxygen 30 %; HCO3 ABG 24.6 mEq/l (22.0-26.0); Oxygen Content ABG 10.3 %vol (16.0-22.0); Oxygen Saturation ABG 93.2 % (95.0-100.0); PCO2 ABG 40.0 mmHg (35.0-45.0); PO2 ABG 65.8 mmHg (80.0-100.0); PO2 FiO2 Ratio Arterial Blood 2.19 %
[2025-01-16 10:20] LABS: Site Drawn ARTLINE
[2025-01-16 10:21] LABS: Arterial Blood Gas Pressure Support 5 cmH2O
[2025-01-16] MEDS: dexmedeTOMIDine 400 MCG/100 ML 400 MCG/100 ML BAG 27.65 MCG IV CONT ×4 (10:21→20:11)
--- NOTE | 2025-01-16 10:42 | PCFNICU ---
ICU Rounding Note: Pt current nutrition is NPO. Last recorded weight is 110.3 kg, up from 99 kg on admit. Bowel Motility: +BM reported 01/16 Labs Reviewed: Mg 2.4, BUN 78, Cr 1.46, Glu 123, Hgb 7.8, Hct 25.4, Alb 2.4 Meds Noted:Protonix, Levophed, Precedex, Propofol 8 btep=580 kcal Skin: WNL Additional Notes: Patient remains on mechanical vent. Diet order: NPO. Plans for EGD today. Following daily in ICU rounds. Will monitor weight, labs, skin, diet orders, meds every Tuesday and Tuesday.
--- NOTE | 2025-01-16 12:48 | P.PNNP_ITS ---
Progress Note: A&P Assessment and Plan (1) Acute kidney injury: Code(s): N17.9 - Acute kidney failure, unspecified Status: Acute Assessment and Plan: * slow improvement noted * as noted on admission * normal creatinine on hospital discharge in June 2024 * suspect ATN with multifactorial etiology: * infection/sepsis * hemodynamic instability/shock * prerenal factors * ARB + diuretic use prior to admission * polysubstance abuse * other (?) * contrast exposure (CTA C/A/P on 01/09) may hamper/delay recovery * evaluation to date noted: * urine electrolytes pre-renal * CT of abdomen with hypodense right renal masses * renal u/s with no hydronephrosis or renal calculi; indeterminate focus within the interpolar region of the right kidney * urine eosinophils negative * UA without evidence of infection * CPK normal * follow trend of repeat labs and UOP (2) Septic shock: Code(s): A41.9 - Sepsis, unspecified organism; R65.21 - Severe sepsis with septic shock Status: Acute Assessment and Plan: * as noted on presentation with hypotension, acute respiratory failure, lactic acidosis, tachycardia, and DERECK * presumably secondary to pneumonia * s/p 2 L IV fluid bolus and on maintenance IV fluid * lactic acid has normalized * on vasopressor support - wean as tolerated * culture data noted: * blood culture negative * urine culture pending * sputum culture with Pseudomonas * on antibiotics * continue current therapy (3) Acute hypoxic respiratory failure: Code(s): J96.01 - Acute respiratory failure with hypoxia Status: Acute Assessment and Plan: * as noted on presentation to the ER * intubated in ER on admission (due to hypoxia and agonal breathing) * complicated by mucus plugging of right main stem bronchus requiring bronchoscopy with suctioning of secretions * CT imaging noted * no evidence of pulmonary embolism, extensive right upper lobe and lower lobe airspace disease consistent with pneumonia; ilateral pleural effusion, right greater than left * Echo noted: * normal left ventricular size with overall good systolic function, paradoxical septal motion consistent with bundle branch block * EF 55-60% * right ventricular enlargement with systolic dysfunction * mild tricuspid regurgitation, estimated RV systolic pressure 51 mmHg * sclerotic aortic valve which exhibits preserved leaflet excursion * on ventilator support * chest physiotherapy * on nebulizer therapy, mucomyst, and pulmozyme * further complicated by known history of COPD (4) Pneumonia: Qualifiers: Laterality: right Lung location: unspecified part of lung Pneumonia type: due to unspecified organism Qualified Code(s): J18.9 - Pneumonia, unspecified organism Code(s): J18.9 - Pneumonia, unspecified organism Status: Acute Assessment and Plan: * as suggested by imaging to date * COVID, RSV and influenza testing negative * Pseudomonas noted in sputum culture * continue antibiotics * follow respiratory status (5) Anemia: Code(s): D64.9 - Anemia, unspecified Status: Acute Assessment and Plan: * drop in H/H noted (on 01/15) * due to DERECK/ARF along with acute illness * however, was on heparin gtt... * now with dark stools and blood tinged output from OG * PRBC transfusion per protocol * GI consultation * follow trend of H/H (6) CHF (congestive heart failure): Qualifiers: Heart failure type: unspecified Heart failure chronicity: chronic Qualified Code(s): I50.9 - Heart failure, unspecified Code(s): I50.9 - Heart failure, unspecified Status: Acute Assessment and Plan: * known history * Echo noted (see #3) * evidence of fluid overload by recent imaging * may need to consider diuresis (7) Acute exacerbation of chronic obstructive pulmonary disease: Code(s): J44.1 - Chronic obstructive pulmonary disease with (acute) exacerbation Status: Acute Assessment and Plan: * known history of is COPD with emphysema seen on CT scan of the chest * likely precipitated by pneumonia * on bronchodilator therapy (8) Atrial fibrillation: Qualifiers: Atrial fibrillation type: unspecified Qualified Code(s): I48.91 - Unspecified atrial fibrillation Code(s): I48.91 - Unspecified atrial fibrillation Status: Acute Assessment and Plan: * rate control strategy * was on heparin gtt for anticoagulation * off due to drop in H/H * on amiodarone gtt (9) Transaminitis: Code(s): R74.01 - Elevation of levels of liver transaminase levels Status: Acute Assessment and Plan: * significantly elevated LFTs on admission * due to hypotension/shock and hypotension on presentation (?) * RUQ ultrasound shows hepatomegaly with additional findings of portal hypertension * hepatitis panel was negative * follow trend (10) Polysubstance use disorder: Code(s): F19.90 - Other psychoactive substance use, unspecified, uncomplicated Status: Acute Assessment and Plan: * urine tox screen was positive for cannabis and cocaine Will continue to follow. Subjective Date/time seen: 01/16/25 12:48 Interval history: Follow-up for acute kidney injury/acute renal failure. Renal function/creatinine continues to slowly improve with good urine output noted; remains intubated/sedated and on mechanical ventilation; remans on amiodarone and levophed gtt; s/p PRBC transfusion; noted dark stool today along with blood-tinged OG tube output concerning for upper GI bleed -- Gastroenterology consulted. Exam Narrative: General: ill appearing male intubated/sedated and on mechanical ventilation Heart: normal S1 and S2; no rub Lungs: coarse breath sounds Abdomen: soft, nontender, nondistended, decreased bowel sounds Extremities: no cyanosis or clubbimh; no edema Skin: no nodules Objective Data Vital Signs Vital Signs: Vital Signs Temp Pulse Resp BP Pulse Ox O2 Del Method FiO2 01/16/25 12:30 98 86/42 L 01/16/25 12:00 100 99/52 L 01/16/25 12:00 30 01/16/25 12:00 112 H 01/16/25 12:00 113 H 25 H 98 Mechanical Ventilation 01/16/25 11:59 99.5 F 94 24 H 104/54 L 96 01/16/25 11:57 108 H 25 H 01/16/25 11:51 97 79/43 L 01/16/25 11:00 97 87/48 L 01/16/25 10:34 110 H 96/56 L 01/16/25 10:21 93 26 H 01/16/25 10:21 95 26 H 01/16/25 10:14 101 H 86/51 L 01/16/25 10:00 105 H 77/45 L 01/16/25 10:00 115 H 01/16/25 10:00 99.1 F 107 H 18 87/49 L 93 01/16/25 09:57 117 H 26 H 01/16/25 09:55 116 H 28 H 01/16/25 09:52 116 H 98 Mechanical Ventilation 01/16/25 09:25 106 H 120/80 01/16/25 08:42 89 19 01/16/25 08:32 Mechanical Ventilation 01/16/25 08:23 73 16 01/16/25 08:00 30 01/16/25 08:00 56 L 01/16/25 08:00 69 22 H 95 Mechanical Ventilation 01/16/25 08:00 79 117/65 01/16/25 08:00 74 117/65 01/16/25 08:00 79 22 H 01/16/25 08:00 78 22 H 01/16/25 08:00 98.8 F 70 16 95/50 L 90 01/16/25 07:48 72 98 Mechanical Ventilation 01/16/25 06:00 99.1 F 58 L 23 H 113/53 L 94 01/16/25 06:00 58 L 113/55 L 01/16/25 06:00 58 L 113/55 L 01/16/25 06:00 58 L 22 H 01/16/25 06:00 58 L 22 H 01/16/25 06:00 98.3 F 58 L 22 H 113/55 L 94 01/16/25 06:00 56 L 01/16/25 04:18 56 L 22 H 01/16/25 04:18 56 L 22 H 01/16/25 04:00 56 L 96/45 L 01/16/25 04:00 56 L 24 H 01/16/25 04:00 56 L 26 H 01/16/25 04:00 56 L 96/45 L 01/16/25 04:00 56 L 96/45 L 01/16/25 04:00 98.9 F 56 L 26 H 96/45 L 92 01/16/25 04:00 30 01/16/25 04:00 56 L 01/16/25 04:00 54 L 22 H 93 Mechanical Ventilation 01/16/25 02:05 54 L 93 Mechanical Ventilation 01/16/25 02:00 58 L 22 H 01/16/25 02:00 58 L 105/53 L 01/16/25 02:00 58 L 22 H 01/16/25 02:00 58 L 22 H 01/16/25 02:00 58 L 105/51 L 01/16/25 02:00 98.7 F 56 L 22 H 105/49 L 93 01/16/25 02:00 56 L 01/16/25 00:00 57 L 113/53 L 01/16/25 00:00 57 L 22 H 01/16/25 00:00 57 L 22 H 01/16/25 00:00 57 L 22 H 01/16/25 00:00 57 L 22 H 01/16/25 00:00 57 L 113/54 L 01/16/25 00:00 98.5 F 57 L 22 H 107/51 L 95 01/16/25 00:00 30 01/16/25 00:00 57 L 01/16/25 00:00 57 L 22 H 97 Mechanical Ventilation 30 01/15/25 22:32 56 L 96 Mechanical Ventilation 30 01/15/25 22:00 56 L 22 H 01/15/25 22:00 56 L 01/15/25 22:00 56 L 112/52 L 01/15/25 22:00 56 L 22 H 01/15/25 22:00 98.4 F 56 L 22 H 112/52 L 94 01/15/25 22:00 56 L 01/15/25 20:46 56 L 96 Mechanical Ventilation 30 01/15/25 20:30 55 L 85/50 L 01/15/25 20:00 53 L 01/15/25 20:00 55 L 114/54 L 01/15/25 20:00 53 L 22 H 01/15/25 20:00 53 L 22 H 01/15/25 20:00 53 L 22 H 01/15/25 20:00 98.1 F 55 L 22 H 115/55 L 95 01/15/25 20:00 30 01/15/25 19:39 55 L 01/15/25 19:33 55 L 22 H 95 Mechanical Ventilation 30 Intake/Output Intake/Output: Intake & Output 01/13/25 01/14/25 01/15/25 01/16/25 23:59 23:59 23:59 23:59 Intake Total 3448.6 3823.0 3076.3 1688.1 Output Total 1600 2050 2825 2125 Balance 1848.6 1773.0 251.3 -436.9 Meds/Results Medications: Active Medications Generic Name Dose Route Start Last Admin Trade Name Freq PRN Reason Stop Dose Admin Acetaminophen 650 mg 01/09/25 14:52 Acetaminophen 650 Mg Suppository RECTAL Q6H PRN Mild Pain (1-3) or Fever Albuterol/Ipratropium 3 ml 01/14/25 07:39 Ipratropium 0.5 Mg/Albuterol Sulfate 2.5 Mg Ampul.Neb 3 Ml INHALATION Q6HRT PRN Wheezing Dextrose 12.5 gm 01/10/25 00:27 Dextrose 50% 25 Gm/50 Ml Syringe IV PUSH PRN PRN Hypoglycemia Protocol Glucagon 1 mg 01/10/25 00:27 Glucagon For Inj 1 Mg Vial IM PRN PRN Hypoglycemia Protocol Glucose 15 gm 01/10/25 00:27 Glucose Oral Gel 15 Gm Of Glucse In 37.5 Gm Tube PO PRN PRN Hypoglycemia Protocol Hydrocortisone Sodium Succinate 100 mg 01/16/25 14:00 01/16/25 14:37 Hydrocortisone Sodium Succinate 100 Mg/2 Ml Vial IV PUSH 100 mg Q8HR JENNY Administration Cefepime HCl 1 gm/ Sodium 50 mls @ 100 mls/hr 01/10/25 06:00 01/16/25 17:33 Chloride IVPB 01/19/25 06:29 100 mls/hr Q12H JENNY Administration Dextrose 1,000 mls @ 100 mls/hr 01/10/25 00:27 Dextrose 5% 1,000 Ml IVPB PRN PRN Hypoglycemia Protocol Amiodarone HCl/Dextrose 360 mg in 200 mls @ 16.667 mls/hr 01/11/25 07:00 01/16/25 17:32 Nexterone 360 Mg/D5w 200 Ml IV CONT 0.5 mg/min .Q12H JENNY 16.67 mls/hr 0.5 MG/MIN Administration Norepinephrine Bitartrate 8 mg in 250 mls @ 18.75 mls/hr 01/12/25 10:55 01/16/25 16:00 Levophed 8 Mg/D5w 250 Ml IV CONT 10 mcg/min .[id number] JENNY 18.75 mls/hr Protocol Titration 10 MCG/MIN Propofol 100 mls @ 12.984 mls/hr 01/12/25 10:55 01/16/25 16:00 Diprivan IV CONT 20 mcg/kg/min .Q7H43M JENNY 12.98 mls/hr Protocol Titration 20 MCG/KG/MIN Dexmedetomidine HCl 400 mcg in 100 mls @ 27.65 mls/hr 01/14/25 07:45 01/16/25 16:43 Precedex 400 Mcg/100 Ml IV CONT 1 mcg/kg/hr .Q3H37M JENNY 27.65 mls/hr Protocol Administration 1 MCG/KG/HR Vasopressin 100 units/ 100 mls @ 2.4 mls/hr 01/16/25 13:35 01/16/25 16:00 Dextrose IV CONT 0.04 units/min .[id number] JENNY 2.4 mls/hr Protocol Titration 0.04 UNITS/MIN Albumin Human 250 mls @ 62.5 mls/hr 01/16/25 16:00 Albumin Human 5% IV CONT 01/16/25 19:59 .Q4H ONE Sodium Chloride 250 mls @ 30 mls/hr 01/16/25 15:02 01/16/25 15:26 Normal Saline Iv IV CONT 01/16/25 23:21 30 mls/hr .Q8H20M STA Administration Insulin Aspart 3 - 6 units 01/10/25 06:00 01/16/25 12:42 Insulin Aspart (*Bk) 100 Units/Ml SUB-Q Not Given Q6HR [facility] Protocol Multi-Ingred Cream/Lotion/Oil/Oint 1 applic 01/12/25 21:00 01/16/25 08:07 Mineral Oil/White Petrolatum Ointment EACH EYE 1 applic Q12HR JENNY Administration Pantoprazole Sodium 40 mg 01/09/25 21:00 01/16/25 08:06 Pantoprazole Sodium Iv 40 Mg Vial IV PUSH 40 mg Q12HR JENNY Administration Polyethylene Glycol 17 gm 01/12/25 10:42 01/14/25 09:00 Polyethylene Glycol 3350 17 Gm Powd.Pack PO 17 gm QAM PRN Administration Constipation Fluticasone/Salmeterol 2 puff 01/09/25 20:00 01/14/25 20:56 Fluticasone/Salmeterol 115-21 Mcg Inhaler 1 Puff INHALATION Not Given On Hold: 01/14/25 08:00 Q12HRT JENNY Senna/Docusate Sodium 1 tab 01/12/25 21:00 01/15/25 20:31 Senna/Docusate Sodium Tablet PO 1 tab HS JENNY Administration Sodium Chloride 20 ml 01/09/25 17:08 Central Line Flush IV PUSH PRN PRN after blood draws Sodium Chloride 20 ml 01/09/25 17:34 01/11/25 05:29 Central Line Flush IV PUSH 20 ml PRN PRN Administration after blood draws Radiology Results: ITS Impressions Abdomen X-Ray 01/09/25 13:38 IMPRESSION: 1: NG tube tip in the stomach. Chest/Abdomen/Pelvis CTA 01/09/25 13:59 IMPRESSION: 1. Extensive airspace disease of the right upper and lower lobe, consistent with pneumonia. 2: Bilateral pleural effusions, right greater than left. 3: Hypodense right renal masses. Cannot exclude renal cell carcinoma. Consider correlation with MRI abdomen with contrast. 4: Small pericardial effusion. Head CT 01/09/25 14:00 IMPRESSION: 1. No acute intracranial hemorrhage. No mass effect. 2. Probable chronic ischemic white matter change. Renal Ultrasound 01/09/25 19:35 IMPRESSION: No hydronephrosis or renal calculi. Indeterminate focus within the interpolar region of the right kidney, for which contrast enhanced CT or MRI (with renal mass protocol) is suggested for further evaluation. Abdomen Ultrasound 01/09/25 19:44 IMPRESSION: Limited evaluation of the pancreas secondary to overlying bowel gas Hepatomegaly with additional findings of portal hypertension, as detailed above. Chest/Abdomen/Pelvis CT 01/15/25 09:42 IMPRESSION: 1. There is a 1.6 cm subpleural spiculated pulmonary nodule in the right lower lobe. A PET/CT and/or biopsy is recommended. 2.Interval decrease in the size of the airspace opacities scattered throughout the right lung. 3.A moderate sized consolidation persists in the right lower lobe. Recommend follow-up to resolution. 4.Small patchy opacities in the left lower lobe. 5.Small right-sided pleural effusion. 6.Tiny left-sided pleural effusion. 7.There is a stable centrilobular emphysema. 8.Redemonstration of the 1.8 cm subtle hypodense right renal mass. A renal mass MRI is recommended. 9. Small amount of fluid and fat saturated scattered throughout the abdomen and pelvis. 10. Extensive anasarca throughout the chest, abdomen and pelvis. Chest X-Ray 01/16/25 06:14 Impression: Small bilateral pleural effusions with mild bibasilar pulmonary edema, right w orse than left. Support tubes, as above. Labs Labs: Laboratory Tests 01/16/25 03:47 WBC 8.8 Hgb 7.8 L Hct 25.4 L Plt Count 88 L Sodium 143 Potassium 3.7 Chloride 114 H Carbon Dioxide 24 Anion Gap 5 BUN 78 H D Creatinine 1.46 H Estim Creat Clear Calc 57 Estimated GFR 48 L Glucose 123 H Calcium 8.4 Magnesium 2.4 H Total Bilirubin 0.5 AST 48 ALT 201 H Alkaline Phosphatase 55 Total Protein 4.6 L Albumin 2.4 L Triglycerides 171 H Microbiology 01/09/25 18:42 Blood Blood Culture - Final
[2025-01-16] MEDS: VASOPRESSIN INJ 100 UNITS in DEXTROSE 5% 95 ML IV CONT (13:58)
--- NOTE | 2025-01-16 14:36 | WPDGICN ---
Assessment and Plan Assessment and plan (1) GIB (gastrointestinal bleeding): Code(s): K92.2 - Gastrointestinal hemorrhage, unspecified Status: Acute Assessment and Plan: noted active bleeding today with significant drop of hemoglobin continue iv protonix, discontinue blood thinner will proceed with urgent EGD at bedside to find source of bleeding (2) Melena: Code(s): K92.1 - Melena Status: Acute Assessment and Plan: egd stat (3) Acute blood loss anemia: Code(s): D62 - Acute posthemorrhagic anemia Status: Acute Assessment and Plan: s/p blood transfusion keep hb above 7 here with septic shock and respiratory failure, probably from ulcers (4) Acute kidney injury: Code(s): N17.9 - Acute kidney failure, unspecified Status: Acute Assessment and Plan: by burlap bag sewer (5) CHF exacerbation: Qualifiers: Heart failure type: unspecified Qualified Code(s): I50.9 - Heart failure, unspecified Code(s): I50.9 - Heart failure, unspecified Status: Acute (6) Septic shock: Code(s): A41.9 - Sepsis, unspecified organism; R65.21 - Severe sepsis with septic shock Status: Acute Assessment and Plan: on treatment (7) Pneumonia: Qualifiers: Laterality: right Lung location: unspecified part of lung Pneumonia type: due to unspecified organism Qualified Code(s): J18.9 - Pneumonia, unspecified organism Code(s): J18.9 - Pneumonia, unspecified organism Status: Acute Assessment and Plan: on abx (8) Acute hypoxic respiratory failure: Code(s): J96.01 - Acute respiratory failure with hypoxia Status: Acute Assessment and Plan: intubated GI Consult Note Consult date/time: 01/16/25 14:36 Reason for consult: gib bleed, melena, acute anemia HPI: Jose De La Vega is a 64 year old male admitted to ICU 1 week ago with respiratory failure, septic shock and chu about 1 week ago. He is currently intubated and history if obtained from records. He was found by family member with altered mental status and respiratory distress for 2 days, eventually she called 911. Upon EMS arrival the patient was altered and minimally responsive. He was noted to be hypoxic and he required bag mask ventilation to improve his respiratory status but his oxygenation remained low in the 80 percentile range. He was emergently intubated and placed on mechanical ventilation, also diagnosed with septic shock. Subsequent imaging included a CT scan of the brain which was negative for any acute pathology and a CT PE protocol along with abdomen which showed no evidence of pulmonary embolism with extensive right upper lobe and lower lobe airspace disease consistent with pneumonia bilateral pleural effusions right greater than left, and hyperdense right renal masses with the concern for possible malignancy. Initial labs showed WBC count of 16.7, hemoglobin 15.8, platelet counts 323 PT 16.1, INR 1.3, PTT 28. Sodium 140, potassium 6.1, chloride 101, CO2 27, anion gap 12, BUN 79, creatinine 3.81, glucose 124, lactic acid 2.5, total bilirubin 1.2, AST 60, ALT 692, troponin 0.215>. ProBNP > 60298. Lipase is 57, TSH 2.280. UA E not reflective of UTI. MRSA screen was positive. Urine drug screen was positive for cocaine and cannabinoids. Alcohol level< 10. Influenza, RSV, COVID PCR were negative. Most recently primary noted acute drop of hgb yesterday from 11 to 7.8, repeat CT scan did not show obvious active bleeding but today also blood in OGT and also melena. He is on iv protonix, also was on blood thinners. Review of Systems Review of Systems: ROS unobtainable: Yes unobtainable due to endotracheal tube and unobtainable due to mental status PMFSH Past Medical History Medical History (Updated 01/16/25 @ 14:41 by Harsh Sood MD) Acute blood loss anemia Melena GIB (gastrointestinal bleeding) Atrial fibrillation Continuous tobacco abuse Chronic respiratory failure with hypoxia and hypercapnia On home O2 of 3 L Bipolar disorder CHF (congestive heart failure) COPD (chronic obstructive pulmonary disease) Surgical History Surgical History No significant past surgical history Family History Family History Other Unknown family medical history Social History Social History Social History: Code status: Full code (per EMR) Surrogate decision maker: Aura Campos (sister) Smoking packs per day: 1.5 Smoking cigarettes per day: 30.0 Years smoked: 40 Smoking pack-years: 60.00 Smoking status: Current every day smoker Alcohol intake: unknown Substance use: unknown Spiritual care concerns: No Meds Home Medications and Allergies Home Medications ?Medication ?Instructions ?Recorded ?Confirmed ?Type albuterol sulfate 90 mcg/actuation 2 puff inhalation Q4-6H PRN 07/03/24 01/09/25 History aerosol inhaler (Ventolin HFA) Shortness of breath apixaban 5 mg tablet (Eliquis) 5 mg PO BID 07/03/24 01/09/25 History diltiazem HCl 360 mg 360 mg PO DAILY 07/03/24 01/09/25 History capsule,extended release 24 hr furosemide 40 mg tablet 40 mg PO DAILY 07/03/24 01/09/25 History losartan 50 mg tablet 50 mg PO DAILY 07/03/24 01/09/25 History mometasone-formoterol HFA 200 2 puff inhalation BID 07/03/24 01/09/25 History mcg-5 mcg/actuation aerosol inhaler (Dulera) Allergies Allergy/AdvReac Type Severity Reaction Status Date / Time piroxicam Allergy Unknown Unknown Verified 07/03/24 17:10 Vital Signs Vital Signs - 24 hr 01/15/25 15:00 01/15/25 15:00 01/15/25 15:57 Temperature 98.1 F Pulse Rate 55 L 56 L 58 L Respiratory Rate 24 H 26 H Blood Pressure 115/57 L Pulse Oximetry 95 96 Oxygen Delivery Mechanical Ventilation Fraction of Inspired Oxygen 30 01/15/25 16:00 01/15/25 16:00 01/15/25 16:00 Temperature Pulse Rate 58 L 56 L 56 L Respiratory Rate 20 27 H Blood Pressure Pulse Oximetry 97 Oxygen Delivery Mechanical Ventilation Fraction of Inspired Oxygen 30 01/15/25 16:00 01/15/25 16:00 01/15/25 16:00 Temperature 98.1 F Pulse Rate 54 L 56 L Respiratory Rate 27 H Blood Pressure 114/74 107/72 Pulse Oximetry 97 Oxygen Delivery Fraction of Inspired Oxygen 30 01/15/25 16:00 01/15/25 16:00 01/15/25 16:01 Temperature Pulse Rate 56 L 56 L 61 Respiratory Rate 29 H 22 H Blood Pressure 107/72 Pulse Oximetry Oxygen Delivery Fraction of Inspired Oxygen 01/15/25 16:20 01/15/25 16:37 01/15/25 17:00 Temperature 98.1 F 98.1 F 98.1 F Pulse Rate 59 L 59 L 56 L Respiratory Rate 28 H 19 30 H Blood Pressure 110/53 L 108/68 119/57 L Pulse Oximetry 92 97 96 Oxygen Delivery Fraction of Inspired Oxygen 01/15/25 17:37 01/15/25 17:49 01/15/25 18:00 Temperature 98.1 F Pulse Rate 56 L 56 L 55 L Respiratory Rate 25 H Blood Pressure 123/80 123/80 Pulse Oximetry 97 Oxygen Delivery Fraction of Inspired Oxygen 01/15/25 18:00 01/15/25 18:00 01/15/25 18:00 Temperature 98 F Pulse Rate 53 L 55 L 55 L Respiratory Rate 22 H 20 Blood Pressure 107/68 128/77 Pulse Oximetry 97 Oxygen Delivery Fraction of Inspired Oxygen 01/15/25 18:00 01/15/25 18:01 01/15/25 18:03 Temperature Pulse Rate 53 L 54 L 54 L Respiratory Rate 22 H Blood Pressure 128/77 128/77 Pulse Oximetry Oxygen Delivery Fraction of Inspired Oxygen 01/15/25 19:33 01/15/25 19:39 01/15/25 20:00 Temperature Pulse Rate 55 L 55 L Respiratory Rate 22 H Blood Pressure Pulse Oximetry 95 Oxygen Delivery Mechanical Ventilation Fraction of Inspired Oxygen 30 30 01/15/25 20:00 01/15/25 20:00 01/15/25 20:00 Temperature 98.1 F Pulse Rate 55 L 53 L 53 L Respiratory Rate 22 H 22 H 22 H Blood Pressure 115/55 L Pulse Oximetry 95 Oxygen Delivery Fraction of Inspired Oxygen 01/15/25 20:00 01/15/25 20:00 01/15/25 20:00 Temperature Pulse Rate 53 L 55 L 53 L Respiratory Rate 22 H Blood Pressure 114/54 L Pulse Oximetry Oxygen Delivery Fraction of Inspired Oxygen 01/15/25 20:30 01/15/25 20:46 01/15/25 22:00 Temperature Pulse Rate 55 L 56 L 56 L Respiratory Rate Blood Pressure 85/50 L Pulse Oximetry 96 Oxygen Delivery Mechanical Ventilation Fraction of Inspired Oxygen 30 01/15/25 22:00 01/15/25 22:00 01/15/25 22:00 Temperature 98.4 F Pulse Rate 56 L 56 L 56 L Respiratory Rate 22 H 22 H Blood Pressure 112/52 L 112/52 L Pulse Oximetry 94 Oxygen Delivery Fraction of Inspired Oxygen 01/15/25 22:00 01/15/25 22:00 01/15/25 22:32 Temperature Pulse Rate 56 L 56 L 56 L Respiratory Rate 22 H Blood Pressure Pulse Oximetry 96 Oxygen Delivery Mechanical Ventilation Fraction of Inspired Oxygen 30 01/16/25 00:00 01/16/25 00:00 01/16/25 00:00 Temperature Pulse Rate 57 L 57 L Respiratory Rate 22 H Blood Pressure Pulse Oximetry 97 Oxygen Delivery Mechanical Ventilation Fraction of Inspired Oxygen 30 30 01/16/25 00:00 01/16/25 00:00 01/16/25 00:00 Temperature 98.5 F Pulse Rate 57 L 57 L 57 L Respiratory Rate 22 H 22 H Blood Pressure 107/51 L 113/54 L Pulse Oximetry 95 Oxygen Delivery Fraction of Inspired Oxygen 01/16/25 00:00 01/16/25 00:00 01/16/25 00:00 Temperature Pulse Rate 57 L 57 L 57 L Respiratory Rate 22 H 22 H 22 H Blood Pressure Pulse Oximetry Oxygen Delivery Fraction of Inspired Oxygen 01/16/25 00:00 01/16/25 02:00 01/16/25 02:00 Temperature 98.7 F Pulse Rate 57 L 56 L 56 L Respiratory Rate 22 H Blood Pressure 113/53 L 105/49 L Pulse Oximetry 93 Oxygen Delivery Fraction of Inspired Oxygen 01/16/25 02:00 01/16/25 02:00 01/16/25 02:00 Temperature Pulse Rate 58 L 58 L 58 L Respiratory Rate 22 H 22 H Blood Pressure 105/51 L Pulse Oximetry Oxygen Delivery Fraction of Inspired Oxygen 01/16/25 02:00 01/16/25 02:00 01/16/25 02:05 Temperature Pulse Rate 58 L 58 L 54 L Respiratory Rate 22 H Blood Pressure 105/53 L Pulse Oximetry 93 Oxygen Delivery Mechanical Ventilation Fraction of Inspired Oxygen 30 01/16/25 04:00 01/16/25 04:00 01/16/25 04:00 Temperature Pulse Rate 54 L 56 L Respiratory Rate 22 H Blood Pressure Pulse Oximetry 93 Oxygen Delivery Mechanical Ventilation Fraction of Inspired Oxygen 30 30 01/16/25 04:00 01/16/25 04:00 01/16/25 04:00 Temperature 98.9 F Pulse Rate 56 L 56 L 56 L Respiratory Rate 26 H Blood Pressure 96/45 L 96/45 L 96/45 L Pulse Oximetry 92 Oxygen Delivery Fraction of Inspired Oxygen 01/16/25 04:00 01/16/25 04:00 01/16/25 04:00 Temperature Pulse Rate 56 L 56 L 56 L Respiratory Rate 26 H 24 H Blood Pressure 96/45 L Pulse Oximetry Oxygen Delivery Fraction of Inspired Oxygen 01/16/25 04:18 01/16/25 04:18 01/16/25 06:00 Temperature Pulse Rate 56 L 56 L 56 L Respiratory Rate 22 H 22 H Blood Pressure Pulse Oximetry Oxygen Delivery Fraction of Inspired Oxygen 01/16/25 06:00 01/16/25 06:00 01/16/25 06:00 Temperature 98.3 F Pulse Rate 58 L 58 L 58 L Respiratory Rate 22 H 22 H 22 H Blood Pressure 113/55 L Pulse Oximetry 94 Oxygen Delivery Fraction of Inspired Oxygen 01/16/25 06:00 01/16/25 06:00 01/16/25 06:00 Temperature 99.1 F Pulse Rate 58 L 58 L 58 L Respiratory Rate 23 H Blood Pressure 113/55 L 113/55 L 113/53 L Pulse Oximetry 94 Oxygen Delivery Fraction of Inspired Oxygen 01/16/25 07:48 01/16/25 08:00 01/16/25 08:00 Temperature 98.8 F Pulse Rate 72 70 78 Respiratory Rate 16 22 H Blood Pressure 95/50 L Pulse Oximetry 98 90 Oxygen Delivery Mechanical Ventilation Fraction of Inspired Oxygen 30 01/16/25 08:00 01/16/25 08:00 01/16/25 08:00 Temperature Pulse Rate 79 74 79 Respiratory Rate 22 H Blood Pressure 117/65 117/65 Pulse Oximetry Oxygen Delivery Fraction of Inspired Oxygen 01/16/25 08:00 01/16/25 08:00 01/16/25 08:00 Temperature Pulse Rate 69 56 L Respiratory Rate 22 H Blood Pressure Pulse Oximetry 95 Oxygen Delivery Mechanical Ventilation Fraction of Inspired Oxygen 30 30 01/16/25 08:23 01/16/25 08:32 01/16/25 08:42 Temperature Pulse Rate 73 89 Respiratory Rate 16 19 Blood Pressure Pulse Oximetry Oxygen Delivery Mechanical Ventilation Fraction of Inspired Oxygen 30 01/16/25 09:25 01/16/25 09:52 01/16/25 09:55 Temperature Pulse Rate 106 H 116 H 116 H Respiratory Rate 28 H Blood Pressure 120/80 Pulse Oximetry 98 Oxygen Delivery Mechanical Ventilation Fraction of Inspired Oxygen 30 01/16/25 09:57 01/16/25 10:00 01/16/25 10:00 Temperature 99.1 F Pulse Rate 117 H 107 H 115 H Respiratory Rate 26 H 18 Blood Pressure 87/49 L Pulse Oximetry 93 Oxygen Delivery Fraction of Inspired Oxygen 01/16/25 10:00 01/16/25 10:14 01/16/25 10:21 Temperature Pulse Rate 105 H 101 H 95 Respiratory Rate 26 H Blood Pressure 77/45 L 86/51 L Pulse Oximetry Oxygen Delivery Fraction of Inspired Oxygen 01/16/25 10:21 01/16/25 10:34 01/16/25 11:00 Temperature Pulse Rate 93 110 H 97 Respiratory Rate 26 H Blood Pressure 96/56 L 87/48 L Pulse Oximetry Oxygen Delivery Fraction of Inspired Oxygen 01/16/25 11:51 01/16/25 11:57 01/16/25 11:59 Temperature 99.5 F Pulse Rate 97 108 H 94 Respiratory Rate 25 H 24 H Blood Pressure 79/43 L 104/54 L Pulse Oximetry 96 Oxygen Delivery Fraction of Inspired Oxygen 01/16/25 12:00 01/16/25 12:00 01/16/25 12:00 Temperature Pulse Rate 113 H 112 H Respiratory Rate 25 H Blood Pressure Pulse Oximetry 98 Oxygen Delivery Mechanical Ventilation Fraction of Inspired Oxygen 30 30 01/16/25 12:00 01/16/25 12:30 01/16/25 12:58 Temperature Pulse Rate 100 98 104 H Respiratory Rate Blood Pressure 99/52 L 86/42 L Pulse Oximetry 96 Oxygen Delivery Mechanical Ventilation Fraction of Inspired Oxygen 30 01/16/25 13:00 01/16/25 13:30 01/16/25 13:47 Temperature 99.3 F Pulse Rate 107 H 120 H 114 H Respiratory Rate 30 H 19 Blood Pressure 85/55 L 75/47 L Pulse Oximetry 96 Oxygen Delivery Fraction of Inspired Oxygen 01/16/25 13:57 01/16/25 13:58 01/16/25 13:58 Temperature 99.3 F 99.3 F Pulse Rate 118 H 103 H 111 H Respiratory Rate 27 H 25 H Blood Pressure 87/53 L 83/52 L 87/51 L Pulse Oximetry 96 100 Oxygen Delivery Fraction of Inspired Oxygen 01/16/25 14:00 01/16/25 14:02 01/16/25 14:05 Temperature Pulse Rate 106 H 108 H 123 H Respiratory Rate 36 H Blood Pressure 86/52 L 85/53 L Pulse Oximetry Oxygen Delivery Fraction of Inspired Oxygen 01/16/25 14:07 01/16/25 14:07 01/16/25 14:17 Temperature 99.4 F 99.4 F Pulse Rate 121 H 123 H 122 H Respiratory Rate 35 H 32 H Blood Pressure 112/67 77/53 L 109/63 Pulse Oximetry 96 100 Oxygen Delivery Fraction of Inspired Oxygen Exam Narrative: General: Patient intubated and sedated, in no acute distress at this time HEENT:? Pupils equally reactive, sclera is clear, ETT in place Neck:? Supple Respiratory:? Coarse breath sounds bilaterally R > L, decreased breath sounds at right base, distant breath sounds Cardiac:? Irregularly irregular, tachycardia Abdomen:? Soft, nontender, nondistended, hypoactive bowel sounds blood-tinged output from OG tube Extremities:? Extremities are warm, palpable pedal pulse Neuro:? Patient intubated, sedated, he opens his eyes and follow simple commands bilaterally with all 4 extremities, nodes head appropriately to questions Skin:? No skin lesions noted Psych:? Unable to assess at this time Results Labs 01/16/25 03:47 01/16/25 03:47 Labs: Short CBC 01/15/25 01/15/25 01/16/25 Range/Units 14:52 20:22 03:47 WBC 9.8 9.9 8.8 (4.5-10.0) K/mm3 Hgb 7.3 L 8.2 L 7.8 L (14.0-18.0) g/dL Hct 24.0 L 26.4 L 25.4 L (42.0-52.0) % Plt Count 87 L 88 L 88 L (150-375) k/mm3 BMP 01/16/25 03:47 Sodium 143 Potassium 3.7 Chloride 114 H Carbon Dioxide 24 BUN 78 H D Creatinine 1.46 H Glucose 123 H Calcium 8.4 Liver Function 01/16/25 Range/Units 03:47 Total Bilirubin 0.5 (0.2-1.3) mg/dL AST 48 (17-59) U/L ALT 201 H (6-50) U/L Alkaline Phosphatase 55 (38-126) U/L Albumin 2.4 L (3.5-5.1) g/dL
[2025-01-16] MEDS: HYDROCORTISONE SODIUM SUCCINATE 100 MG/2 ML VIAL IV PUSH ×2 (14:37→21:11)
[2025-01-16] MEDS: ALBUMIN HUMAN 5% 250 ML IV CONT ×2 (14:37→21:07)
[2025-01-16] MEDS: EPINEPHrine INJ 1 MG/10 ML SYRINGE 0.7 MG XX (14:37)
[2025-01-16 14:40] LABS: Mean Corpuscular HGB Conc 30.0 g/dl (32-36); Mean Corpuscular Hemoglobin 27.9 pg (26-34); Mean Corpuscular Volume 93.2 fl (80-100); Platelet Count Result 168 k/mm3 (150-375); Red Blood Count 2.22 M/mm3 (4.6-6.20); White Blood Count 18.4 K/mm3 (4.5-10.0)
[2025-01-16] MEDS: MIDAZOLAM HCL (*CRX) 2 MG/2 ML VIAL IV PUSH (14:46)
[2025-01-16 14:48] LABS: Hematocrit 20.7 % (42.0-52.0); Hemoglobin 6.2 g/dL (14.0-18.0)
[2025-01-16] MEDS: PROPOFOL IV EMULSION 100 ML 12.98 MG IV CONT ×2 (14:57→22:38)
[2025-01-16] MEDS: EPINEPHrine INJ 1 MG/10 ML SYRINGE XX (15:02)
[2025-01-16] MEDS: LACTATED RINGERS 500 ML 999 ML IV CONT (15:25)
[2025-01-16] MEDS: SODIUM CHLORIDE 0.9% IV 250 ML 30 ML IV CONT (15:26)
[2025-01-16 18:10] LABS: Hematocrit 21.8 % (42.0-52.0)
[2025-01-16 18:23] LABS: Hemoglobin 6.8 g/dL (14.0-18.0)
[2025-01-16] MEDS: NOREPINEPHRINE 8 MG/D5W 250 ML 8 MG/250 ML BAG 18.75 MG IV CONT (21:03)
[2025-01-17] VITALS (45 sets, daily range): BP systolic 83–152; BP diastolic 46–87; PULSE 54–887; RESP 22–30; TEMP 36.9–38.2; O2SAT 91–97
[2025-01-17] MEDS: dexmedeTOMIDine 400 MCG/100 ML 400 MCG/100 ML BAG 27.65 MCG IV CONT ×7 (00:03→21:00)
[2025-01-17 01:43] LABS: Hematocrit 23.4 % (42.0-52.0); Hemoglobin 7.4 g/dL (14.0-18.0)
[2025-01-17 04:46] LABS: Hematocrit 22.3 % (42.0-52.0); Hemoglobin 7.0 g/dL (14.0-18.0); Mean Corpuscular HGB Conc 31.4 g/dl (32-36); Mean Corpuscular Hemoglobin 28.6 pg (26-34); Mean Corpuscular Volume 91.0 fl (80-100); Platelet Count Result 120 k/mm3 (150-375); Red Blood Count 2.45 M/mm3 (4.6-6.20); White Blood Count 11.4 K/mm3 (4.5-10.0)
[2025-01-17 05:17] LABS: Alanine Aminotransferase 116 U/L (6-50); Albumin Level 2.7 g/dL (3.5-5.1); Alkaline Phosphatase 51 U/L (38-126); Anion Gap 7 mmol/L (4-12); Aspartate Amino Transferase 34 U/L (17-59); Bilirubin,Total 0.4 mg/dL (0.2-1.3); Blood Urea Nitrogen 86 mg/dL (9-20); Calcium 8.1 mg/dL (8.4-10.2); Carbon Dioxide 22 mmol/L (22-30); Chloride 113 mmol/L (98-107); Estimated CRCL calculation 58 ml/min; Estimated Glomerular Filt Rate 49; Glucose 153 mg/dL (65-110); Magnesium 2.5 mg/dL (1.6-2.3); Potassium 3.9 mmol/L (3.4-5.0); Sodium 142 mmol/L (137-145); Total Protein 4.6 g/dL (6.3-8.2)
[2025-01-17 05:44] LABS: Alveolar/Arterial O2 Gradient 154.1 mmHg; Carboxyhemoglobin 0.8 % THb (0-2.0); Fractional Inspired Oxygen 30 %; HCO3 ABG 20.0 mEq/l (22.0-26.0); Methemoglobin ABG 0.4 %THb (0-1.5); Oxygen Content ABG 11.8 %vol (16.0-22.0); Oxygen Saturation ABG 96.2 % (95.0-100.0); PCO2 ABG 31.7 mmHg (35.0-45.0); PO2 ABG 80.4 mmHg (80.0-100.0); PO2 FiO2 Ratio Arterial Blood 2.68 %; Reduced Hemoglobin 4.8 %THb (0-5.0)
[2025-01-17] MEDS: HYDROCORTISONE SODIUM SUCCINATE 100 MG/2 ML VIAL IV PUSH ×3 (05:46→21:33)
[2025-01-17] MEDS: CEFEPIME 1 GM in SODIUM CHLORIDE 0.9% IV 50 ML 100 ML IVPB ×2 (05:46→18:28)
[2025-01-17 05:56] LABS: Site Drawn ARTLINE
[2025-01-17 05:57] LABS: Arterial Blood Gas Tidal Volume 480 ml; Arterial Blood Gas Ventilator rate 22 /MIN
[2025-01-17] MEDS: PROPOFOL IV EMULSION 100 ML 12.98 MG IV CONT ×3 (06:20→18:31)
[2025-01-17] MEDS: MINERAL OIL/WHITE PETROLATUM OINTMENT 1 APPLIC EACH EYE ×2 (08:37→21:33)
[2025-01-17] MEDS: PANTOPRAZOLE SODIUM IV 40 MG VIAL IV PUSH ×2 (08:37→21:33)
--- NOTE | 2025-01-17 09:12 | P.PNINT_ITS ---
Progress Note: A&P Assessment and Plan (1) Acute hypoxic respiratory failure: Code(s): J96.01 - Acute respiratory failure with hypoxia Status: Acute Assessment and Plan: 01/09: Patient presented the ED via EMS after the called 911 as patient has been laying in bed with agonal breathing for the last 2 days, upon arrival of the EMS patient was unresponsive, with agonal breaths. Bag-mask ventilation was started patient was hypotensive, in the ER patient had a GCS of 3 and was emergently intubated. Post intubation patient is on O2 sats were in the upper 60s to 70s. Patient was in a PEEP of 15 and 100% FiO2 -01/09: I was asked to come down to the ER to evaluate the patient, patient was given rocuronium, and revealed emergently to the ICU, -01/09: emergent bronch was performed in the ICU with significant thick mucus plugs in the right mainstem, right upper lobe and right lower lobe. Suction and cleared most of the secretions with the bronchoscope.O2 sats improved to 95-99% -chest x-ray and ABGs reviewed -ventilator adjusted peep is at 8, FiO2 at 30% -chest physiotherapy per RT -status post Pulmozyme and Mucomyst treatment, secretions much improved -continue DuoNebs p.r.n. -continue Symbicort inhaler -status post course of Solu-Medrol -currently on propofol and Precedex infusion. Will wean down propofol 01/16 weaning trial was performed and patient did adequate with adequate RSBI in ABG but patient is due for a EGD this afternoon hence will leave him on the ventilator. Also with upper GI bleed will not be able to use BiPAP once extubated. IV Lasix given 01/17 continue mechanical ventilation. We will delay weaning until the GI bleed is resolved and hemoglobin is stabilized. Even when patient gets extubated I anticipate patient will need BiPAP which will not be possible with GI bleed. ABG chest x-ray reviewed 01/09: CT PE protocol, abdomen and pelvis with no evidence of pulmonary embolism, extensive right upper lobe and lower lobe airspace disease consistent with pneumonia. Bilateral pleural effusion, right greater than left. Hyperdense right renal masses, cannot exclude renal cell carcinoma, consider correlation with MRI abdomen with contrast. Small pericardial (2) Bleeding: Code(s): R58 - Hemorrhage, not elsewhere classified Status: Acute Assessment and Plan: 01/15 Increase vasopressor requirement over last 24 hours. Hemoglobin this morning showed dropped to 7.1. Patient is on anticoagulation. I suspect petition bleeding although there is no obvious clinical sign. Patient has not any bowel movement. I aspirated tube feed and it does look dark but not conclusive of bleeding. Tube feeds were held, OG tube to L IS, and patient was made NPO. Heparin was discontinued and CBC was monitored. Patient was transfuse 2 units of PRBC over last [address] scan of abdomen pelvis did not show any hematoma or retroperitoneal hemorrhage. 01/16 patient had dark bowel movement today and also OG tube shows blood-tinged output consistent with upper GI bleed. Patient underwent EGD which showed gastritis active bleed. Both ulcers were treated with epinephrine injection Hemoglobin is 7.0. Will transfuse additional 1 unit of PRBC in light of active GI bleed. Anticoagulation has been discontinued. Continue to monitor hemoglobin -PPI IV q.12 hours GI following (3) Septic shock: Code(s): A41.9 - Sepsis, unspecified organism; R65.21 - Severe sepsis with septic shock Status: Acute Assessment and Plan: Patient with hypotension, acute respiratory failure, lactic acidosis, tachycardia -UA was negative -patient was treated with IV fluids and started on vasopressors. Patient eventually came off of vasopressors but Levophed was resumed on 01/14 -will maintain MAP > 65 mm or SBP > 100 mmHg at all times for adequate end organ perfusion -continue cefepime. Completed course of doxycycline, Flagyl discontinued on 01/12 -01/09: Blood culture -Gram-positive cocci which was Staph epidermis -01/09: Sputum culture -pansensitive Pseudomonas -01/09: Urine Legionella pending -01/11: Repeat blood cultures -preliminary report is negative x2 -01/09: Urine Legionella is pending (4) Pneumonia: Qualifiers: Laterality: right Lung location: unspecified part of lung Pneumonia type: due to unspecified organism Qualified Code(s): J18.9 - Pneumonia, unspecified organism Code(s): J18.9 - Pneumonia, unspecified organism Status: Acute Assessment and Plan: Likely pneumonia on of the right upper and lower lobe -COVID, RSV and influenza were NEGATIVE -continue antibiotics as above -currently on mechanical ventilation (5) Acute exacerbation of chronic obstructive pulmonary disease: Code(s): J44.1 - Chronic obstructive pulmonary disease with (acute) exacerbation Status: Acute Assessment and Plan: History of is COPD with emphysema seen on CT scan of the chest -continue bronchodilators as above (6) Atrial fibrillation: Qualifiers: Atrial fibrillation type: unspecified Qualified Code(s): I48.91 - Unspecified atrial fibrillation Code(s): I48.91 - Unspecified atrial fibrillation Status: Acute Assessment and Plan: History of atrial flutter/fibrillation patient is on apixaban at home, hold ap ixaban for now -currently in AFib, RVR with heart rates in the 70s -continue amiodarone infusion - 01/15 discontinued heparin infusion due to upper GI bleed (7) Polysubstance use disorder: Code(s): F19.90 - Other psychoactive substance use, unspecified, uncomplicated Status: Acute Assessment and Plan: Urine tox screen was positive for cannabis and cocaine Will mental health counselor patient once he is extubated (8) Transaminitis: Code(s): R74.01 - Elevation of levels of liver transaminase levels Status: Acute Assessment and Plan: Significantly elevated LFTs, -RUQ ultrasound shows hepatomegaly with additional findings of portal hypertension -hepatitis panel was negative -could also be related to hypoxia, hypotension/shock -continue to monitor liver function tests (9) Elevated troponin: Code(s): R79.89 - Other specified abnormal findings of blood chemistry Status: Acute Assessment and Plan: Elevated troponin 0.215 -could be related to type 2 infarct, is EKG did not show any ST elevation -troponins were flat, 01/10/2025: Echocardiogram Summary 1. Complete two-dimensional, color flow and Doppler transthoracic echocardiogram is performed. 2. Somewhat challenging exam with patient on ventilator support. 3. Normal left ventricular size with overall good systolic function, paradoxical septal motion consistent with bundle branch block. EF 55-60% 4. Right ventricular enlargement with systolic dysfunction. 5. Mild tricuspid regurgitation, estimated RV systolic pressure 51 mmHg. 6. Sclerotic aortic valve which exhibits preserved leaflet excursion. (10) Current smoker: Code(s): F17.200 - Nicotine dependence, unspecified, uncomplicated Status: Acute Assessment and Plan: Will mental health counselor patient on tobacco cessation once he is extubated (11) CHF (congestive heart failure): Qualifiers: Heart failure type: unspecified Heart failure chronicity: chronic Qualified Code(s): I50.9 - Heart failure, unspecified Code(s): I50.9 - Heart failure, unspecified Status: Acute Assessment and Plan: Patient has a history of CHF, likely HFpEF -proBNP > 39334 Echocardiogram as above, EF of 55%, RVSP 51 mmHg, moderate pulmonary hypertension likely related to COPD -chest x-ray does not show pulmonary edema -Lasix IV given 01/16 (12) Electrolyte imbalance: Code(s): E87.8 - Other disorders of electrolyte and fluid balance, not elsewhere classified Status: Acute Assessment and Plan: Potassium replacement ordered (13) Acute renal failure: Code(s): N17.9 - Acute kidney failure, unspecified Status: Acute Assessment and Plan: 01/09/2025: Patient presented with creatinine of 3.81 (baseline 1.10-1.23). Multifactorial likely related to infection, sepsis, shock, medications, polysubstance abuse -Adequately fluid-resuscitated -Urine lytes showed prerenal picture -renal ultrasound with no hydronephrosis or calculi, intermittent focus within the interpolar region of the right kidney for which contrast enhanced CT or MRI is suggested -urine eosinophils negative -CPK levels are normal -creatinine improved to 1.44 Continue to monitor renal function, electrolytes and urine output Plan DVT prophylaxis: Patient was on Heparin infusion which is now off due to GI bleed. SCDs Stress ulcer prophylaxis: Protonix Nutrition: Tolerating tube feeds. P.r.n. MiraLax, Colace Code Status: DNR Critical Care Time Spent: 32 minutes Due to a high probability of clinically significant, life threatening deterioration, the patient required my highest level of preparedness to intervene emergently and I personally spent this critical care time directly and personally managing the patient. This critical care time included obtaining a history; examining the patient; pulse oximetry; ordering and review of studies; arranging urgent treatment with development of a management plan; evaluation of patient's response to treatment; frequent reassessment; and discussions with other providers. It was exclusive of separately billable procedures and treating other patients and teaching time. Please see Assessment and Plan section and the rest of the note for further information on patient assessment and treatment This dictation may have been done utilizing a voice recognition system. Attempts have been made to correct errors. However, there may be uncorrected grammatical, spelling, and recognitions errors present. Subjective Date/time seen: 01/17/25 Overnight events reviewed. Afebrile. Patient had EGD done yesterday which showed 2 bleeding duodenal ulcers Continues to be on mechanical ventilation 40% FiO2 Continues to be on vasopressors Levophed and vasopressin Continues to be sedated with propofol and Precedex Continues to be on amiodarone infusion Bloody bowel movements. Acceptable urine output. Interval history: Reason for consult: Acute hypoxic respiratory failure, altered mental status, pneumonia, acute kidney injury, hyperkalemia, severe sepsis/shock, transaminitis 01/09: Bronchoscopy Review of Systems Review of Systems: ROS unobtainable: Yes unobtainable due to endotracheal tube, unobtainable due to medical condition and unobtainable due to mental status Exam Narrative: General: Patient intubated and sedated, in no acute distress at this time HEENT:? Pupils equally reactive, sclera is clear, ETT in place Neck:? Supple Respiratory:? Coarse breath sounds bilaterally R > L, decreased breath sounds at right base, distant breath sounds Cardiac:? Irregularly irregular, tachycardia Abdomen:? Soft, nontender, nondistended, hypoactive bowel sounds blood-tinged output from OG tube, FMS in place with dark black stool Extremities:? Extremities are warm, palpable pedal pulse Neuro:? Patient intubated, sedated, does not follow commands today sees sedated Skin:? No skin lesions noted Psych:? Unable to assess at this time Objective Data Vital Signs Vital Signs: Vital Signs - 24 hr 01/16/25 09:25 01/16/25 09:52 01/16/25 09:55 Temperature Pulse Rate 106 H 116 H 116 H Respiratory Rate 28 H Blood Pressure 120/80 Pulse Oximetry 98 Oxygen Delivery Mechanical Ventilation Fraction of Inspired Oxygen 30 01/16/25 09:57 01/16/25 10:00 01/16/25 10:00 Temperature 37.3 C Pulse Rate 117 H 107 H 115 H Respiratory Rate 26 H 18 Blood Pressure 87/49 L Pulse Oximetry 93 Oxygen Delivery Fraction of Inspired Oxygen 01/16/25 10:00 01/16/25 10:14 01/16/25 10:21 Temperature Pulse Rate 105 H 101 H 95 Respiratory Rate 26 H Blood Pressure 77/45 L 86/51 L Pulse Oximetry Oxygen Delivery Fraction of Inspired Oxygen 01/16/25 10:21 01/16/25 10:34 01/16/25 11:00 Temperature Pulse Rate 93 110 H 97 Respiratory Rate 26 H Blood Pressure 96/56 L 87/48 L Pulse Oximetry Oxygen Delivery Fraction of Inspired Oxygen 01/16/25 11:51 01/16/25 11:57 01/16/25 11:59 Temperature 37.5 C Pulse Rate 97 108 H 94 Respiratory Rate 25 H 24 H Blood Pressure 79/43 L 104/54 L Pulse Oximetry 96 Oxygen Delivery Fraction of Inspired Oxygen 01/16/25 12:00 01/16/25 12:00 01/16/25 12:00 Temperature Pulse Rate 113 H 112 H Respiratory Rate 25 H Blood Pressure Pulse Oximetry 98 Oxygen Delivery Mechanical Ventilation Fraction of Inspired Oxygen 30 30 01/16/25 12:00 01/16/25 12:30 01/16/25 12:58 Temperature Pulse Rate 100 98 104 H Respiratory Rate Blood Pressure 99/52 L 86/42 L Pulse Oximetry 96 Oxygen Delivery Mechanical Ventilation Fraction of Inspired Oxygen 30 01/16/25 13:00 01/16/25 13:30 01/16/25 13:47 Temperature 37.4 C Pulse Rate 107 H 120 H 114 H Respiratory Rate 30 H 19 Blood Pressure 85/55 L 75/47 L Pulse Oximetry 96 Oxygen Delivery Fraction of Inspired Oxygen 01/16/25 13:57 01/16/25 13:58 01/16/25 13:58 Temperature 37.4 C 37.4 C Pulse Rate 118 H 103 H 111 H Respiratory Rate 27 H 25 H Blood Pressure 87/53 L 83/52 L 87/51 L Pulse Oximetry 96 100 Oxygen Delivery Fraction of Inspired Oxygen 01/16/25 13:58 01/16/25 14:00 01/16/25 14:00 Temperature Pulse Rate 116 H 106 H 123 H Respiratory Rate 36 H 38 H Blood Pressure 86/52 L Pulse Oximetry Oxygen Delivery Fraction of Inspired Oxygen 01/16/25 14:00 01/16/25 14:02 01/16/25 14:05 Temperature Pulse Rate 107 H 108 H 123 H Respiratory Rate 36 H Blood Pressure 85/53 L Pulse Oximetry Oxygen Delivery Fraction of Inspired Oxygen 01/16/25 14:07 01/16/25 14:07 01/16/25 14:17 Temperature 37.4 C 37.4 C Pulse Rate 121 H 123 H 122 H Respiratory Rate 35 H 32 H Blood Pressure 112/67 77/53 L 109/63 Pulse Oximetry 96 100 Oxygen Delivery Fraction of Inspired Oxygen 01/16/25 14:30 01/16/25 14:45 01/16/25 14:57 Temperature Pulse Rate 110 H 113 H 123 H Respiratory Rate 36 H Blood Pressure 102/71 107/63 Pulse Oximetry Oxygen Delivery Fraction of Inspired Oxygen 01/16/25 14:57 01/16/25 15:07 01/16/25 15:30 Temperature Pulse Rate 108 H 103 H 104 H Respiratory Rate 36 H Blood Pressure 117/86 109/62 Pulse Oximetry Oxygen Delivery Fraction of Inspired Oxygen 01/16/25 15:38 01/16/25 15:56 01/16/25 16:00 Temperature 37.3 C 37.3 C Pulse Rate 93 101 H 115 H Respiratory Rate 29 H 25 H 26 H Blood Pressure 117/86 87/58 L Pulse Oximetry 92 90 Oxygen Delivery Fraction of Inspired Oxygen 01/16/25 16:00 01/16/25 16:00 01/16/25 16:00 Temperature Pulse Rate 110 H 103 H 101 H Respiratory Rate 24 H Blood Pressure 87/58 L 87/58 L Pulse Oximetry Oxygen Delivery Fraction of Inspired Oxygen 01/16/25 16:00 01/16/25 16:00 01/16/25 16:00 Temperature 37.3 C Pulse Rate 103 H 100 91 Respiratory Rate 30 H 27 H Blood Pressure 87/58 L 92/52 L Pulse Oximetry 91 97 Oxygen Delivery Mechanical Ventilation Fraction of Inspired Oxygen 30 01/16/25 16:00 01/16/25 16:00 01/16/25 16:43 Temperature Pulse Rate 90 94 Respiratory Rate 27 H Blood Pressure Pulse Oximetry Oxygen Delivery Fraction of Inspired Oxygen 30 01/16/25 16:43 01/16/25 16:56 01/16/25 17:28 Temperature 37.3 C Pulse Rate 92 92 104 H Respiratory Rate 27 H 26 H Blood Pressure 95/82 L Pulse Oximetry 98 96 Oxygen Delivery Mechanical Ventilation Fraction of Inspired Oxygen 30 01/16/25 17:32 01/16/25 17:32 01/16/25 17:56 Temperature 37.3 C Pulse Rate 88 88 95 Respiratory Rate 26 H Blood Pressure 95/82 L 95/82 L 127/82 Pulse Oximetry 95 Oxygen Delivery Fraction of Inspired Oxygen 01/16/25 17:59 01/16/25 18:00 01/16/25 18:00 Temperature 37.3 C Pulse Rate 92 85 86 Respiratory Rate 25 H 22 H Blood Pressure 126/70 Pulse Oximetry 94 Oxygen Delivery Fraction of Inspired Oxygen 01/16/25 19:28 01/16/25 19:53 01/16/25 20:00 Temperature Pulse Rate 83 77 88 Respiratory Rate 27 H Blood Pressure 130/72 Pulse Oximetry 95 Oxygen Delivery Mechanical Ventilation Fraction of Inspired Oxygen 30 01/16/25 20:00 01/16/25 20:00 01/16/25 20:00 Temperature Pulse Rate 88 88 88 Respiratory Rate 27 H Blood Pressure 132/76 132/76 Pulse Oximetry Oxygen Delivery Fraction of Inspired Oxygen 01/16/25 20:00 01/16/25 20:00 01/16/25 20:00 Temperature Pulse Rate 88 88 Respiratory Rate 27 H Blood Pressure 132/76 Pulse Oximetry 94 Oxygen Delivery Mechanical Ventilation Fraction of Inspired Oxygen 30 30 01/16/25 20:00 01/16/25 20:11 01/16/25 20:11 Temperature Pulse Rate 86 81 81 Respiratory Rate 25 H 25 H Blood Pressure Pulse Oximetry Oxygen Delivery Fraction of Inspired Oxygen 01/16/25 20:25 01/16/25 20:44 01/16/25 20:52 Temperature 36.7 C 36.5 C Pulse Rate 85 85 53 L Respiratory Rate 26 H 24 H Blood Pressure 130/72 110/63 132/76 Pulse Oximetry 91 93 Oxygen Delivery Fraction of Inspired Oxygen 01/16/25 21:00 01/16/25 21:02 01/16/25 21:03 Temperature 36.8 C Pulse Rate 85 81 83 Respiratory Rate 27 H Blood Pressure 108/62 86/51 L 94/53 L Pulse Oximetry 91 Oxygen Delivery Fraction of Inspired Oxygen 01/16/25 21:03 01/16/25 22:00 01/16/25 22:00 Temperature 37.3 C Pulse Rate 83 119 H 119 H Respiratory Rate 28 H Blood Pressure 94/53 L 105/60 Pulse Oximetry 93 Oxygen Delivery Fraction of Inspired Oxygen 01/16/25 22:00 01/16/25 22:00 01/16/25 22:00 Temperature 37.2 C Pulse Rate 119 H 119 H 119 H Respiratory Rate 28 H 28 H 28 H Blood Pressure 105/60 Pulse Oximetry 93 Oxygen Delivery Fraction of Inspired Oxygen 01/16/25 22:00 01/16/25 22:00 01/16/25 22:00 Temperature Pulse Rate 119 H 119 H 119 H Respiratory Rate Blood Pressure 105/60 105/60 105/60 Pulse Oximetry Oxygen Delivery Fraction of Inspired Oxygen 01/16/25 22:38 01/16/25 22:38 01/16/25 23:00 Temperature 37.2 C Pulse Rate 103 H 103 H 91 Respiratory Rate 28 H 28 H 29 H Blood Pressure 126/67 Pulse Oximetry 92 Oxygen Delivery Fraction of Inspired Oxygen 01/16/25 23:00 01/16/25 23:19 01/16/25 23:47 Temperature 37.2 C Pulse Rate 90 77 77 Respiratory Rate 27 H 26 H Blood Pressure 144/76 H Pulse Oximetry 92 93 Oxygen Delivery Mechanical Ventilation Fraction of Inspired Oxygen 30 01/17/25 00:00 01/17/25 00:00 01/17/25 00:00 Temperature Pulse Rate 91 91 91 Respiratory Rate 30 H Blood Pressure 152/87 H 152/87 H Pulse Oximetry Oxygen Delivery Fraction of Inspired Oxygen 01/17/25 00:00 01/17/25 00:00 01/17/25 00:00 Temperature Pulse Rate 91 91 Respiratory Rate 30 H Blood Pressure 152/87 H Pulse Oximetry 91 Oxygen Delivery Mechanical Ventilation Fraction of Inspired Oxygen 30 30 01/17/25 00:00 01/17/25 00:00 01/17/25 00:03 Temperature 37.4 C Pulse Rate 91 83 77 Respiratory Rate 30 H 26 H Blood Pressure 152/87 H Pulse Oximetry 91 Oxygen Delivery Fraction of Inspired Oxygen 01/17/25 01:42 01/17/25 02:00 01/17/25 02:00 Temperature 37.7 C H Pulse Rate 89 83 83 Respiratory Rate 26 H Blood Pressure 140/78 119/70 Pulse Oximetry 92 Oxygen Delivery Fraction of Inspired Oxygen 01/17/25 02:00 01/17/25 02:00 01/17/25 02:00 Temperature Pulse Rate 83 83 83 Respiratory Rate 26 H 26 H Blood Pressure 119/70 Pulse Oximetry Oxygen Delivery Fraction of Inspired Oxygen 01/17/25 02:00 01/17/25 02:00 01/17/25 02:00 Temperature Pulse Rate 83 83 85 Respiratory Rate Blood Pressure 119/70 119/70 Pulse Oximetry 91 Oxygen Delivery Mechanical Ventilation Fraction of Inspired Oxygen 30 01/17/25 03:40 01/17/25 03:40 01/17/25 04:00 Temperature Pulse Rate 89 89 87 Respiratory Rate 22 H 22 H 27 H Blood Pressure Pulse Oximetry Oxygen Delivery Fraction of Inspired Oxygen 01/17/25 04:00 01/17/25 04:00 01/17/25 04:00 Temperature Pulse Rate 87 87 87 Respiratory Rate 27 H Blood Pressure 132/77 132/77 Pulse Oximetry Oxygen Delivery Fraction of Inspired Oxygen 01/17/25 04:00 01/17/25 04:00 01/17/25 04:00 Temperature Pulse Rate 87 87 Respiratory Rate 27 H Blood Pressure 132/77 Pulse Oximetry 92 Oxygen Delivery Mechanical Ventilation Fraction of Inspired Oxygen 30 30 01/17/25 04:00 01/17/25 04:00 01/17/25 04:10 Temperature 37.8 C H Pulse Rate 887 H 96 94 Respiratory Rate 27 H Blood Pressure 132/77 128/71 Pulse Oximetry 92 Oxygen Delivery Fraction of Inspired Oxygen 01/17/25 04:40 01/17/25 05:48 01/17/25 05:49 Temperature Pulse Rate 82 64 64 Respiratory Rate Blood Pressure 101/58 L 101/58 L Pulse Oximetry 95 Oxygen Delivery Mechanical Ventilation Fraction of Inspired Oxygen 30 01/17/25 06:00 01/17/25 06:00 01/17/25 06:00 Temperature Pulse Rate 67 67 67 Respiratory Rate 27 H 27 H Blood Pressure 106/61 Pulse Oximetry Oxygen Delivery Fraction of Inspired Oxygen 01/17/25 06:00 01/17/25 06:00 01/17/25 06:00 Temperature Pulse Rate 67 67 67 Respiratory Rate Blood Pressure 106/61 106/61 Pulse Oximetry Oxygen Delivery Fraction of Inspired Oxygen 01/17/25 06:00 01/17/25 06:20 01/17/25 06:20 Temperature 38.1 C H Pulse Rate 67 66 66 Respiratory Rate 27 H 23 H 23 H Blood Pressure 106/61 Pulse Oximetry 92 Oxygen Delivery Fraction of Inspired Oxygen 01/17/25 06:40 01/17/25 06:40 01/17/25 06:50 Temperature Pulse Rate 59 L 59 L 61 Respiratory Rate 22 H 22 H Blood Pressure 83/46 L Pulse Oximetry Oxygen Delivery Fraction of Inspired Oxygen 01/17/25 07:14 01/17/25 07:30 01/17/25 08:00 Temperature Pulse Rate 62 65 67 Respiratory Rate 26 H Blood Pressure 145/71 H Pulse Oximetry 95 Oxygen Delivery Mechanical Ventilation Fraction of Inspired Oxygen 40 01/17/25 08:00 01/17/25 08:00 01/17/25 08:00 Temperature Pulse Rate 67 67 67 Respiratory Rate 26 H Blood Pressure 119/66 119/66 Pulse Oximetry Oxygen Delivery Fraction of Inspired Oxygen 01/17/25 08:00 01/17/25 08:00 01/17/25 08:00 Temperature 38.0 C H Pulse Rate 67 67 67 Respiratory Rate 26 H 26 H Blood Pressure 119/66 119/66 Pulse Oximetry 95 96 Oxygen Delivery Mechanical Ventilation Fraction of Inspired Oxygen 40 01/17/25 08:00 01/17/25 08:45 01/17/25 09:00 Temperature Pulse Rate 68 76 Respiratory Rate Blood Pressure 124/69 98/55 L Pulse Oximetry Oxygen Delivery Fraction of Inspired Oxygen 40 Intake/Output Intake/Output: Intake & Output 01/14/25 01/15/25 01/16/25 01/17/25 23:59 23:59 23:59 23:59 Intake Total 3823.0 3076.3 2799.3 800 Output Total 2050 2825 2125 1150 Balance 1773.0 251.3 674.3 -350 Meds/Results Medications: Active Medications Generic Name Dose Route Start Last Admin Trade Name Freq PRN Reason Stop Dose Admin Acetaminophen 650 mg 01/09/25 14:52 Acetaminophen 650 Mg Suppository RECTAL Q6H PRN Mild Pain (1-3) or Fever Albuterol/Ipratropium 3 ml 01/14/25 07:39 Ipratropium 0.5 Mg/Albuterol Sulfate 2.5 Mg Ampul.Neb 3 Ml INHALATION Q6HRT PRN Wheezing Dextrose 12.5 gm 01/10/25 00:27 Dextrose 50% 25 Gm/50 Ml Syringe IV PUSH PRN PRN Hypoglycemia Protocol Glucagon 1 mg 01/10/25 00:27 Glucagon For Inj 1 Mg Vial IM PRN PRN Hypoglycemia Protocol Glucose 15 gm 01/10/25 00:27 Glucose Oral Gel 15 Gm Of Glucse In 37.5 Gm Tube PO PRN PRN Hypoglycemia Protocol Hydrocortisone Sodium Succinate 100 mg 01/16/25 14:00 01/17/25 05:46 Hydrocortisone Sodium Succinate 100 Mg/2 Ml Vial IV PUSH 100 mg Q8HR JENNY Administration Cefepime HCl 1 gm/ Sodium 50 mls @ 100 mls/hr 01/10/25 06:00 01/17/25 06:16 Chloride IVPB 01/19/25 06:29 Infused Q12H JENNY Infusion Dextrose 1,000 mls @ 100 mls/hr 01/10/25 00:27 Dextrose 5% 1,000 Ml IVPB PRN PRN Hypoglycemia Protocol Amiodarone HCl/Dextrose 360 mg in 200 mls @ 16.667 mls/hr 01/11/25 07:00 01/17/25 08:00 Nexterone 360 Mg/D5w 200 Ml IV CONT 0.5 mg/min .Q12H JENNY 16.67 mls/hr 0.5 MG/MIN Infusion Norepinephrine Bitartrate 8 mg in 250 mls @ 7.5 mls/hr 01/12/25 10:55 01/17/25 08:00 Levophed 8 Mg/D5w 250 Ml IV CONT 4 mcg/min .Q24H JENNY 7.5 mls/hr Protocol Titration 4 MCG/MIN Propofol 100 mls @ 12.984 mls/hr 01/12/25 10:55 01/17/25 08:00 Diprivan IV CONT 20 mcg/kg/min .Q7H43M JENNY 12.98 mls/hr Protocol Titration 20 MCG/KG/MIN Dexmedetomidine HCl 400 mcg in 100 mls @ 27.65 mls/hr 01/14/25 07:45 01/17/25 08:00 Precedex 400 Mcg/100 Ml IV CONT 1 mcg/kg/hr .Q3H37M JENNY 27.65 mls/hr Protocol Titration 1 MCG/KG/HR Vasopressin 100 units/ 100 mls @ 1.2 mls/hr 01/16/25 13:35 01/17/25 09:00 Dextrose IV CONT 0.02 units/min .Q72H JENNY 1.2 mls/hr Protocol Titration 0.02 UNITS/MIN Sodium Chloride 250 mls @ 30 mls/hr 01/17/25 08:15 Normal Saline Iv IV CONT 01/17/25 16:34 .Q8H20M STA Insulin Aspart 3 - 6 units 01/10/25 06:00 01/17/25 05:23 Insulin Aspart (*Bkc) 100 Units/Ml SUB-Q Not Given Q6HR JENNY Protocol Multi-Ingred Cream/Lotion/Oil/Oint 1 applic 01/12/25 21:00 01/17/25 08:37 Mineral Oil/White Petrolatum Ointment EACH EYE 1 applic Q12HR JENNY Administration Pantoprazole Sodium 40 mg 01/09/25 21:00 01/17/25 08:37 Pantoprazole Sodium Iv 40 Mg Vial IV PUSH 40 mg Q12HR JENNY Administration Polyethylene Glycol 17 gm 01/12/25 10:42 01/14/25 09:00 Polyethylene Glycol 3350 17 Gm Powd.Pack PO 17 gm QAM PRN Administration Constipation Fluticasone/Salmeterol 2 puff 01/09/25 20:00 01/14/25 20:56 Fluticasone/Salmeterol 115-21 Mcg Inhaler 1 Puff INHALATION Not Given On Hold: 01/14/25 08:00 Q12HRT JENNY Senna/Docusate Sodium 1 tab 01/12/25 21:00 01/16/25 20:26 Senna/Docusate Sodium Tablet PO Not Given HS JENNY Sodium Chloride 20 ml 01/09/25 17:08 Central Line Flush IV PUSH PRN PRN after blood draws Sodium Chloride 20 ml 01/09/25 17:34 01/11/25 05:29 Central Line Flush IV PUSH 20 ml PRN PRN Administration after blood draws Radiology Results: ITS Impressions Abdomen X-Ray 01/09/25 13:38 IMPRESSION: 1: NG tube tip in the stomach. Chest/Abdomen/Pelvis CTA 01/09/25 13:59 IMPRESSION: 1. Extensive airspace disease of the right upper and lower lobe, consistent with pneumonia. 2: Bilateral pleural effusions, right greater than left. 3: Hypodense right renal masses. Cannot exclude renal cell carcinoma. Consider correlation with MRI abdomen with contrast. 4: Small pericardial effusion. Head CT 01/09/25 14:00 IMPRESSION: 1. No acute intracranial hemorrhage. No mass effect. 2. Probable chronic ischemic white matter change. Renal Ultrasound 01/09/25 19:35 IMPRESSION: No hydronephrosis or renal calculi. Indeterminate focus within the interpolar region of the right kidney, for which contrast enhanced CT or MRI (with renal mass protocol) is suggested for further evaluation. Abdomen Ultrasound 01/09/25 19:44 IMPRESSION: Limited evaluation of the pancreas secondary to overlying bowel gas Hepatomegaly with additional findings of portal hypertension, as detailed above. Chest/Abdomen/Pelvis CT 01/15/25 09:42 IMPRESSION: 1. There is a 1.6 cm subpleural spiculated pulmonary nodule in the right lower lobe. A PET/CT and/or biopsy is recommended. 2.Interval decrease in the size of the airspace opacities scattered throughout the right lung. 3.A moderate sized consolidation persists in the right lower lobe. Recommend follow-up to resolution. 4.Small patchy opacities in the left lower lobe. 5.Small right-sided pleural effusion. 6.Tiny left-sided pleural effusion. 7.There is a stable centrilobular emphysema. 8.Redemonstration of the 1.8 cm subtle hypodense right renal mass. A renal mass MRI is recommended. 9. Small amount of fluid and fat saturated scattered throughout the abdomen and pelvis. 10. Extensive anasarca throughout the chest, abdomen and pelvis. Chest X-Ray 01/17/25 06:08 Impression: Small right pleural effusion. Support tubes, as above. Labs Labs: Laboratory Results - last 24 hr 01/15/25 01/16/25 01/16/25 08:06 09:42 11:21 WBC RBC Hgb Hct MCV MCH MCHC RDW Plt Count MPV Puncture Site Artline ABG pH 7.407 ABG pCO2 40.0 ABG pO2 65.8 L ABG PO2/FiO2 Ratio 2.19 ABG HCO3 24.6 ABG O2 Saturation 93.2 L ABG O2 Content 10.3 L ABG Base Excess 0.0 A-a Gradient 101.1 Oxyhemoglobin 89.9 L Carboxyhemoglobin Methemoglobin Reduced Hemoglobin Total Hemoglobin 8.1 L O2 Delivery Device Ventilator O2 Liters/Min Not Reportable Minute Volume Not Reportable Vent Rate Not Reportable Vent Mode Spontaneous FiO2 30 Tidal Volume Not Reportable PEEP 5 Peak Inspir Pressure Not Reportable Pressure Support 5 Sodium Potassium Chloride Carbon Dioxide Anion Gap BUN Creatinine Estim Creat Clear Calc Estimated GFR Glucose POC Capillary Glucose 126 H Calcium Magnesium Total Bilirubin AST ALT Alkaline Phosphatase Total Protein Albumin Blood Type AB Positive Antibody Screen Negative Crossmatch See Detail 01/16/25 01/16/25 01/16/25 14:36 17:56 18:07 WBC 18.4 H RBC 2.22 L Hgb 6.2 L* 6.8 L* Hct 20.7 L* 21.8 L MCV 93.2 MCH 27.9 MCHC 30.0 L RDW 20.7 H Plt Count 168 D MPV 12.4 H Puncture Site ABG pH ABG pCO2 ABG pO2 ABG PO2/FiO2 Ratio ABG HCO3 ABG O2 Saturation ABG O2 Content ABG Base Excess A-a Gradient Oxyhemoglobin Carboxyhemoglobin Methemoglobin Reduced Hemoglobin Total Hemoglobin O2 Delivery Device O2 Liters/Min Minute Volume Vent Rate Vent Mode FiO2 Tidal Volume PEEP Peak Inspir Pressure Pressure Support Sodium Potassium Chloride Carbon Dioxide Anion Gap BUN Creatinine Estim Creat Clear Calc Estimated GFR Glucose POC Capillary Glucose 165 H Calcium Magnesium Total Bilirubin AST ALT Alkaline Phosphatase Total Protein Albumin Blood Type Antibody Screen Crossmatch 01/16/25 01/17/25 01/17/25 23:31 01:39 04:18 WBC 11.4 H RBC 2.45 L Hgb 7.4 L 7.0 L Hct 23.4 L 22.3 L MCV 91.0 MCH 28.6 MCHC 31.4 L RDW 17.7 H Plt Count 120 L MPV 12.3 H Puncture Site ABG pH ABG pCO2 ABG pO2 ABG PO2/FiO2 Ratio ABG HCO3 ABG O2 Saturation ABG O2 Content ABG Base Excess A-a Gradient Oxyhemoglobin Carboxyhemoglobin Methemoglobin Reduced Hemoglobin Total Hemoglobin O2 Delivery Device O2 Liters/Min Minute Volume Vent Rate Vent Mode FiO2 Tidal Volume PEEP Peak Inspir Pressure Pressure Support Sodium 142 Potassium 3.9 Chloride 113 H Carbon Dioxide 22 Anion Gap 7 BUN 86 H Creatinine 1.44 H Estim Creat Clear Calc 58 Estimated GFR 49 L Glucose 153 H POC Capillary Glucose 139 H Calcium 8.1 L Magnesium 2.5 H Total Bilirubin 0.4 AST 34 ALT 116 H Alkaline Phosphatase 51 Total Protein 4.6 L Albumin 2.7 L Blood Type Antibody Screen Crossmatch 01/17/25 05:17 WBC RBC Hgb Hct MCV MCH MCHC RDW Plt Count MPV Puncture Site Artline ABG pH 7.417 ABG pCO2 31.7 L ABG pO2 80.4 ABG PO2/FiO2 Ratio 2.68 ABG HCO3 20.0 L ABG O2 Saturation 96.2 ABG O2 Content 11.8 L ABG Base Excess -3.9 A-a Gradient 154.1 Oxyhemoglobin 94.0 Carboxyhemoglobin 0.8 Methemoglobin 0.4 Reduced Hemoglobin 4.8 Total Hemoglobin 8.8 L O2 Delivery Device Ventilator O2 Liters/Min Not Reportable Minute Volume Not Reportable Vent Rate 22 Vent Mode Cmv FiO2 30 Tidal Volume 480 PEEP 8 Peak Inspir Pressure Not Reportable Pressure Support Not Reportable Sodium Potassium Chloride Carbon Dioxide Anion Gap BUN Creatinine Estim Creat Clear Calc Estimated GFR Glucose POC Capillary Glucose Calcium Magnesium Total Bilirubin AST ALT Alkaline Phosphatase Total Protein Albumin Blood Type Antibody Screen Crossmatch Quality VTE Prophylaxis VTE prophylaxis: mechanical ordered
[2025-01-17] MEDS: SODIUM CHLORIDE 0.9% IV 250 ML 30 ML IV CONT (09:15)
--- NOTE | 2025-01-17 11:09 | PCFNICU ---
ICU Rounding Note: Pt current nutrition is Vital AF 1.2 at 20 ml/hr. Last recorded weight is 109.8 kg, up from 99 kg on admit. Bowel Motility: FMS Labs Reviewed: Glu 153, Cr 1.4, Mg 2.5, BUN 86 Meds Noted: Protonix, Propofol 20 wpkv=889 kcal, Precedex. Skin: WNL Additional Notes: Patient remains on mechanical vent. Tube feedings restarted today of Vital AF 1.2 at 20 ml/hr. Spoke with Finish Machine Tender today, plans to run tube feedings today at 20 ml/hr. Recommend goal rate at 70 ml/hr when advancing. Flush 30 ml q 4 hours. Following daily in ICU rounds. Will monitor weight, labs, skin, diet orders, meds every Tuesday and Tuesday.
[2025-01-17] MEDS: ACETAMINOPHEN ELIXIR 325 MG/10.15 ML UDC 650 MG PO (11:10)
--- NOTE | 2025-01-17 12:52 | P.PNNP_ITS ---
Progress Note: A&P Assessment and Plan (1) Acute kidney injury: Code(s): N17.9 - Acute kidney failure, unspecified Status: Acute Assessment and Plan: * slow improvement noted * as noted on admission * normal creatinine on hospital discharge in June 2024 * suspect ATN with multifactorial etiology: * infection/sepsis * hemodynamic instability/shock * prerenal factors * ARB + diuretic use prior to admission * polysubstance abuse * other (?) * contrast exposure (CTA C/A/P on 01/09) may hamper/delay recovery * evaluation to date noted: * urine electrolytes pre-renal * CT of abdomen with hypodense right renal masses * renal u/s with no hydronephrosis or renal calculi; indeterminate focus within the interpolar region of the right kidney * urine eosinophils negative * UA without evidence of infection * CPK normal * follow trend of repeat labs and UOP (2) Septic shock: Code(s): A41.9 - Sepsis, unspecified organism; R65.21 - Severe sepsis with septic shock Status: Acute Assessment and Plan: * as noted on presentation with hypotension, acute respiratory failure, lactic acidosis, tachycardia, and DERECK * presumably secondary to pneumonia * s/p 2 L IV fluid bolus and on maintenance IV fluid * lactic acid has normalized * on vasopressor support - wean as tolerated * culture data noted: * blood culture negative * urine culture pending * sputum culture with Pseudomonas * on antibiotics * continue current therapy (3) Acute hypoxic respiratory failure: Code(s): J96.01 - Acute respiratory failure with hypoxia Status: Acute Assessment and Plan: * as noted on presentation to the ER * intubated in ER on admission (due to hypoxia and agonal breathing) * complicated by mucus plugging of right main stem bronchus requiring bronchoscopy with suctioning of secretions * CT imaging noted * no evidence of pulmonary embolism, extensive right upper lobe and lower lobe airspace disease consistent with pneumonia; ilateral pleural effusion, right greater than left * Echo noted: * normal left ventricular size with overall good systolic function, paradoxical septal motion consistent with bundle branch block * EF 55-60% * right ventricular enlargement with systolic dysfunction * mild tricuspid regurgitation, estimated RV systolic pressure 51 mmHg * sclerotic aortic valve which exhibits preserved leaflet excursion * on ventilator support * chest physiotherapy * on nebulizer therapy, mucomyst, and pulmozyme * further complicated by known history of COPD (4) Pneumonia: Qualifiers: Laterality: right Lung location: unspecified part of lung Pneumonia type: due to unspecified organism Qualified Code(s): J18.9 - Pneumonia, unspecified organism Code(s): J18.9 - Pneumonia, unspecified organism Status: Acute Assessment and Plan: * as suggested by imaging to date * COVID, RSV and influenza testing negative * Pseudomonas noted in sputum culture * continue antibiotics * follow respiratory status (5) GIB (gastrointestinal bleeding): Code(s): K92.2 - Gastrointestinal hemorrhage, unspecified Status: Acute Assessment and Plan: * noted by dropping H/H first noted on 01/15 * dark stools and blood tinged OG tube output as well * heparin discontinued * s/p EGD (on 01/16) with findings/interventions noted: * moderate gastritis with a few crater ulcers noted * largest ulcer with signs of recent bleeding and was treated with gold probe * another ulcer was oozing blood and had attached clot which was subsequently removed with site of active bleeding noted and treated with cauterization and injection of epinephrine * PRBC transfusion per protocol * total of 5 units of PRBC given to date * on IV PPI * GI following (6) Anemia: Code(s): D64.9 - Anemia, unspecified Status: Acute Assessment and Plan: * complicated by #5 * partly due to DERECK/ARF along with acute illness * follow trend of H/H (7) CHF (congestive heart failure): Qualifiers: Heart failure type: unspecified Heart failure chronicity: chronic Q ualified Code(s): I50.9 - Heart failure, unspecified Code(s): I50.9 - Heart failure, unspecified Status: Acute Assessment and Plan: * known history * Echo noted (see #3) * evidence of fluid overload by recent imaging * may need to consider diuresis (8) Acute exacerbation of chronic obstructive pulmonary disease: Code(s): J44.1 - Chronic obstructive pulmonary disease with (acute) exacerbation Status: Acute Assessment and Plan: * known history of is COPD with emphysema seen on CT scan of the chest * likely precipitated by pneumonia * on bronchodilator therapy (9) Atrial fibrillation: Qualifiers: Atrial fibrillation type: unspecified Qualified Code(s): I48.91 - Unspecified atrial fibrillation Code(s): I48.91 - Unspecified atrial fibrillation Status: Acute Assessment and Plan: * rate control strategy * was on heparin gtt for anticoagulation * off due to drop in H/H and #5 * on amiodarone gtt (10) Transaminitis: Code(s): R74.01 - Elevation of levels of liver transaminase levels Status: Acute Assessment and Plan: * significantly elevated LFTs on admission * due to hypotension/shock and hypotension on presentation (?) * RUQ ultrasound shows hepatomegaly with additional findings of portal hypertension * hepatitis panel was negative * follow trend Will continue to follow. L Subjective Date/time seen: 01/17/25 12:52 Interval history: Follow-up for acute kidney injury/acute renal failure. Status post EGD yesterday with findings noted and associated interventions; remains intubated/sedated and on mechanical ventilation; remains on vasopressors as well as amiodarone infusion; renal function/creatinine continues to improve with acceptable urine output although BUN continues to fluctuate; tolerated PRBC transfusions; trend of H/H noted. Exam 2 Narrative: General: ill appearing male intubated/sedated and on mechanical ventilation Heart: normal S1 and S2; no rub Lungs: coarse breath sounds Abdomen: soft, nontender, nondistended, decreased bowel sounds Extremities: no cyanosis or clubbimh; no edema Skin: warm and dry Objective Data Vital Signs Vital Signs: Vital Signs Temp Pulse Resp BP Pulse Ox O2 Del Method FiO2 01/17/25 12:10 100.5 F H 01/17/25 12:00 100.5 F H 64 24 H 109/54 L 95 Mechanical Ventilation 40 01/17/25 11:28 66 26 H 01/17/25 11:27 100.5 F H 65 28 H 117/59 L 96 01/17/25 11:15 75 94 Mechanical Ventilation 40 01/17/25 11:10 100.7 F H 01/17/25 10:30 100.7 F H 80 27 H 119/63 95 01/17/25 10:15 83 121/66 01/17/25 10:15 84 28 H 01/17/25 10:15 84 28 H 01/17/25 10:00 72 01/17/25 10:00 100.7 F H 72 26 H 120/62 95 01/17/25 10:00 72 120/62 01/17/25 10:00 72 120/62 01/17/25 10:00 72 120/62 01/17/25 10:00 72 26 H 01/17/25 10:00 72 26 H 01/17/25 09:30 100.7 F H 80 24 H 111/57 L 95 01/17/25 09:14 100.5 F H 67 24 H 99/53 L 95 01/17/25 09:00 76 98/55 L 01/17/25 08:45 68 124/69 01/17/25 08:00 68 01/17/25 08:00 40 01/17/25 08:00 67 26 H 96 Mechanical Ventilation 40 01/17/25 08:00 100.4 F H 67 26 H 119/66 95 01/17/25 08:00 67 119/66 01/17/25 08:00 67 119/66 01/17/25 08:00 67 119/66 01/17/25 08:00 67 26 H 01/17/25 08:00 67 26 H 01/17/25 07:30 65 95 Mechanical Ventilation 40 01/17/25 07:14 62 145/71 H 01/17/25 06:50 61 83/46 L 01/17/25 06:40 59 L 22 H 01/17/25 06:40 59 L 22 H 01/17/25 06:20 66 23 H 01/17/25 06:20 66 23 H 01/17/25 06:00 100.5 F H 67 27 H 106/61 92 01/17/25 06:00 67 01/17/25 06:00 67 106/61 01/17/25 06:00 67 106/61 01/17/25 06:00 67 106/61 01/17/25 06:00 67 27 H 01/17/25 06:00 67 27 H 01/17/25 05:49 64 101/58 L 01/17/25 05:48 64 101/58 L 01/17/25 04:40 82 95 Mechanical Ventilation 30 01/17/25 04:10 94 128/71 01/17/25 04:00 96 01/17/25 04:00 100.0 F H 887 H 27 H 132/77 92 01/17/25 04:00 30 01/17/25 04:00 87 27 H 92 Mechanical Ventilation 30 01/17/25 04:00 87 132/77 01/17/25 04:00 87 132/77 01/17/25 04:00 87 132/77 01/17/25 04:00 87 27 H 01/17/25 04:00 87 27 H 01/17/25 03:40 89 22 H 01/17/25 03:40 89 22 H 01/17/25 02:00 85 91 Mechanical Ventilation 30 01/17/25 02:00 83 119/70 01/17/25 02:00 83 119/70 01/17/25 02:00 83 119/70 01/17/25 02:00 83 26 H 01/17/25 02:00 83 26 H 01/17/25 02:00 99.8 F H 83 26 H 119/70 92 01/17/25 02:00 83 01/17/25 01:42 89 140/78 01/17/25 00:03 77 26 H 01/17/25 00:00 83 01/17/25 00:00 99.3 F 91 30 H 152/87 H 91 01/17/25 00:00 30 01/17/25 00:00 91 30 H 91 Mechanical Ventilation 30 01/17/25 00:00 91 152/87 H 01/17/25 00:00 91 152/87 H 01/17/25 00:00 91 30 H 01/17/25 00:00 91 152/87 H 01/16/25 23:47 77 26 H 01/16/25 23:19 99.0 F 77 27 H 144/76 H 93 01/16/25 23:00 90 92 Mechanical Ventilation 30 01/16/25 23:00 99.0 F 91 29 H 126/67 92 01/16/25 22:38 103 H 28 H 01/16/25 22:38 103 H 28 H 01/16/25 22:00 119 H 105/60 01/16/25 22:00 119 H 105/60 01/16/25 22:00 119 H 105/60 01/16/25 22:00 119 H 28 H 01/16/25 22:00 119 H 28 H 01/16/25 22:00 99.0 F 119 H 28 H 105/60 93 01/16/25 22:00 99.1 F 119 H 28 H 105/60 93 01/16/25 22:00 119 H 01/16/25 21:03 83 94/53 L 01/16/25 21:03 83 94/53 L 01/16/25 21:02 81 86/51 L 01/16/25 21:00 98.3 F 85 27 H 108/62 91 01/16/25 20:52 97.7 F 53 L 24 H 132/76 93 01/16/25 20:44 98.0 F 85 26 H 110/63 91 01/16/25 20:25 85 130/72 01/16/25 20:11 81 25 H 01/16/25 20:11 81 25 H 01/16/25 20:00 86 01/16/25 20:00 30 01/16/25 20:00 88 27 H 94 Mechanical Ventilation 01/16/25 20:00 88 132/76 01/16/25 20:00 88 132/76 01/16/25 20:00 88 27 H 01/16/25 20:00 88 132/76 01/16/25 20:00 88 27 H 01/16/25 19:53 77 95 Mechanical Ventilation 01/16/25 19:28 83 130/72 01/16/25 18:00 86 01/16/25 18:00 85 22 H 01/16/25 17:59 99.1 F 92 25 H 126/70 94 01/16/25 17:56 99.1 F 95 26 H 127/82 95 01/16/25 17:32 88 95/82 L 01/16/25 17:32 88 95/82 L 01/16/25 17:28 104 H 96 Mechanical Ventilation 01/16/25 16:56 99.1 F 92 26 H 95/82 L 98 01/16/25 16:43 92 27 H 01/16/25 16:43 94 27 H Intake/Output Intake/Output: Intake & Output 01/14/25 01/15/25 01/16/25 01/17/25 23:59 23:59 23:59 23:59 Intake Total 3823.0 3076.3 2799.3 1450 Output Total 2050 2825 2125 1350 Balance 1773.0 251.3 674.3 100 Meds/Results Medications: Active Medications Generic Name Dose Route Start Last Admin Trade Name Freq PRN Reason Stop Dose Admin Acetaminophen 650 mg 01/09/25 14:52 Acetaminophen 650 Mg Suppository RECTAL Q6H PRN Mild Pain (1-3) or Fever Acetaminophen 650 mg 01/17/25 10:46 01/17/25 11:10 Acetaminophen Elixir 325 Mg/10.15 Ml Udc PO 650 mg Q4H PRN Administration Mild Pain (1-3) or Fever Albuterol/Ipratropium 3 ml 01/14/25 07:39 Ipratropium 0.5 Mg/Albuterol Sulfate 2.5 Mg Ampul.Neb 3 Ml INHALATION Q6HRT PRN Wheezing Dextrose 12.5 gm 01/10/25 00:27 Dextrose 50% 25 Gm/50 Ml Syringe IV PUSH PRN PRN Hypoglycemia Protocol Glucagon 1 mg 01/10/25 00:27 Glucagon For Inj 1 Mg Vial IM PRN PRN Hypoglycemia Protocol Glucose 15 gm 01/10/25 00:27 Glucose Oral Gel 15 Gm Of Glucse In 37.5 Gm Tube PO PRN PRN Hypoglycemia Protocol Hydrocortisone Sodium Succinate 100 mg 01/16/25 14:00 01/17/25 14:07 Hydrocortisone Sodium Succinate 100 Mg/2 Ml Vial IV PUSH 100 mg Q8HR JENNY Administration Cefepime HCl 1 gm/ Sodium 50 mls @ 100 mls/hr 01/10/25 06:00 01/17/25 06:16 Chloride IVPB 01/19/25 06:29 Infused Q12H JENNY Infusion Dextrose 1,000 mls @ 100 mls/hr 01/10/25 00:27 Dextrose 5% 1,000 Ml IVPB PRN PRN Hypoglycemia Protocol Amiodarone HCl/Dextrose 360 mg in 200 mls @ 16.667 mls/hr 01/11/25 07:00 01/17/25 14:00 Nexterone 360 Mg/D5w 200 Ml IV CONT 01/17/25 17:00 0.5 mg/min .Q12H JENNY 16.67 mls/hr 0.5 MG/MIN Infusion Norepinephrine Bitartrate 8 mg in 250 mls @ 7.5 mls/hr 01/12/25 10:55 01/17/25 14:00 Levophed 8 Mg/D5w 250 Ml IV CONT 4 mcg/min .Q24H JENNY 7.5 mls/hr Protocol Titration 4 MCG/MIN Propofol 100 mls @ 12.984 mls/hr 01/12/25 10:55 01/17/25 14:00 Diprivan IV CONT 20 mcg/kg/min .Q7H43M JENNY 12.98 mls/hr Protocol Titration 20 MCG/KG/MIN Dexmedetomidine HCl 400 mcg in 100 mls @ 27.65 mls/hr 01/14/25 07:45 01/17/25 14:06 Precedex 400 Mcg/100 Ml IV CONT 1 mcg/kg/hr .Q3H37M JENNY 27.65 mls/hr Protocol Administration 1 MCG/KG/HR Vasopressin 100 units/ 100 mls @ 0 mls/hr 01/16/25 13:35 01/17/25 14:00 Dextrose IV CONT 0 units/min .Q0M JENNY 0 mls/hr Protocol Titration Sodium Chloride 250 mls @ 30 mls/hr 01/17/25 08:15 01/17/25 09:15 Normal Saline Iv IV CONT 01/17/25 16:34 30 mls/hr .Q8H20M STA Administration Amiodarone HCl/Dextrose 360 mg in 200 mls @ 16.667 mls/hr 01/17/25 17:00 Nexterone 360 Mg/D5w 200 Ml IV CONT .Q12H JENNY 0.5 MG/MIN Insulin Aspart 3 - 6 units 01/10/25 06:00 01/17/25 12:49 Insulin Aspart (*Bkc) 100 Units/Ml SUB-Q Not Given Q6HR JENNY Protocol Multi-Ingred Cream/Lotion/Oil/Oint 1 applic 01/12/25 21:00 01/17/25 08:37 Mineral Oil/White Petrolatum Ointment EACH EYE 1 applic Q12HR JENNY Administration Pantoprazole Sodium 40 mg 01/09/25 21:00 01/17/25 08:37 Pantoprazole Sodium Iv 40 Mg Vial IV PUSH 40 mg Q12HR JENNY Administration Polyethylene Glycol 17 gm 01/12/25 10:42 01/14/25 09:00 Polyethylene Glycol 3350 17 Gm Powd.Pack PO 17 gm QAM PRN Administration Constipation Fluticasone/Salmeterol 2 puff 01/09/25 20:00 01/14/25 20:56 Fluticasone/Salmeterol 115-21 Mcg Inhaler 1 Puff INHALATION Not Given On Hold: 01/14/25 08:00 Q12HRT JENNY Senna/Docusate Sodium 1 tab 01/12/25 21:00 01/16/25 20:26 Senna/Docusate Sodium Tablet PO Not Given HS JENNY Sodium Chloride 20 ml 01/09/25 17:08 Central Line Flush IV PUSH PRN PRN after blood draws Sodium Chloride 20 ml 01/09/25 17:34 01/11/25 05:29 Central Line Flush IV PUSH 20 ml PRN PRN Administration after blood draws Radiology Results: ITS Impressions Abdomen X-Ray 01/09/25 13:38 IMPRESSION: 1: NG tube tip in the stomach. Chest/Abdomen/Pelvis CTA 01/09/25 13:59 IMPRESSION: 1. Extensive airspace disease of the right upper and lower lobe, consistent with pneumonia. 2: Bilateral pleural effusions, right greater than left. 3: Hypodense right renal masses. Cannot exclude renal cell carcinoma. Consider correlation with MRI abdomen with contrast. 4: Small pericardial effusion. Head CT 01/09/25 14:00 IMPRESSION: 1. No acute intracranial hemorrhage. No mass effect. 2. Probable chronic ischemic white matter change. Renal Ultrasound 01/09/25 19:35 IMPRESSION: No hydronephrosis or renal calculi. Indeterminate focus within the interpolar region of the right kidney, for which contrast enhanced CT or MRI (with renal mass protocol) is suggested for further evaluation. Abdomen Ultrasound 01/09/25 19:44 IMPRESSION: Limited evaluation of the pancreas secondary to overlying bowel gas Hepatomegaly with additional findings of portal hypertension, as detailed above. Chest/Abdomen/Pelvis CT 01/15/25 09:42 IMPRESSION: 1. There is a 1.6 cm subpleural spiculated pulmonary nodule in the right lower lobe. A PET/CT and/or biopsy is recommended. 2.Interval decrease in the size of the airspace opacities scattered throughout the right lung. 3.A moderate sized consolidation persists in the right lower lobe. Recommend follow-up to resolution. 4.Small patchy opacities in the left lower lobe. 5.Small right-sided pleural effusion. 6.Tiny left-sided pleural effusion. 7.There is a stable centrilobular emphysema. 8.Redemonstration of the 1.8 cm subtle hypodense right renal mass. A renal mass MRI is recommended. 9. Small amount of fluid and fat saturated scattered throughout the abdomen and pelvis. 10. Extensive anasarca throughout the chest, abdomen and pelvis. Chest X-Ray 01/17/25 06:08 Impression: Small right pleural effusion. Support tubes, as above. Labs Labs: Laboratory Tests 01/17/25 04:18 01/17/25 04:18 Calcium 8.1 L Magnesium 2.5 H Total Bilirubin 0.4 AST 34 ALT 116 H Alkaline Phosphatase 51 Total Protein 4.6 L Albumin 2.7 L Microbiology 01/11/25 11:27 Blood Blood Culture - Final 01/11/25 11:28 Blood Blood Culture - Final
--- NOTE | 2025-01-17 17:09 | WPDGIPROGNO ---
Progress Note: A&P Assessment and Plan (1) Duodenal ulcer hemorrhage: Code(s): K26.4 - Chronic or unspecified duodenal ulcer with hemorrhage Status: Acute Assessment and Plan: egd yesterday with active bleeding from duodenal ulcer, treated continue with iv protonix monitor for more signs of bleeding keep hgb>7 (2) GIB (gastrointestinal bleeding): Code(s): K92.2 - Gastrointestinal hemorrhage, unspecified Status: Acute (3) Septic shock: Code(s): A41.9 - Sepsis, unspecified organism; R65.21 - Severe sepsis with septic shock Status: Acute Assessment and Plan: on pressors also abx (4) Acute renal failure: Code(s): N17.9 - Acute kidney failure, unspecified Status: Acute (5) Acute hypoxic respiratory failure: Code(s): J96.01 - Acute respiratory failure with hypoxia Status: Acute Assessment and Plan: intubated (6) Pneumonia: Qualifiers: Laterality: right Lung location: unspecified part of lung Pneumonia type: due to unspecified organism Qualified Code(s): J18.9 - Pneumonia, unspecified organism Code(s): J18.9 - Pneumonia, unspecified organism Status: Acute (7) Acute blood loss anemia: Code(s): D62 - Acute posthemorrhagic anemia Status: Acute Assessment and Plan: s/p another unit prbc Subjective Date/time seen: 01/17/25 17:09 Interval history: still intubated, on levophed, today one more unit prbc egd yesterday with active oozing from duodenal ulcer treated endoscopically tube feeding at 20 ml/h per OGT noted melena in fecal management system Review of Systems Review of Systems: All systems reviewed & are unremarkable except as noted in HPI and below Exam Narrative: General: Patient intubated and sedated, in no acute distress at this time HEENT:? Pupils equally reactive, sclera is clear, ETT in place Neck:? Supple Respiratory:? Coarse breath sounds bilaterally R > L, decreased breath sounds at right base, distant breath sounds Cardiac:? Irregularly irregular, tachycardia Abdomen:? Soft, nontender, nondistended, hypoactive bowel sounds blood-tinged output from OG tube, FMS in place with dark black stool Extremities:? Extremities are warm, palpable pedal pulse Neuro:? Patient intubated, sedated, does not follow commands today sees sedated Skin:? No skin lesions noted Psych:? Unable to assess at this time Objective Data Vital Signs Vital Signs: Vital Signs - 24 hr 01/16/25 17:28 01/16/25 17:32 01/16/25 17:32 Temperature Pulse Rate 104 H 88 88 Respiratory Rate Blood Pressure 95/82 L 95/82 L Pulse Oximetry 96 Oxygen Delivery Mechanical Ventilation Fraction of Inspired Oxygen 30 01/16/25 17:56 01/16/25 17:59 01/16/25 18:00 Temperature 99.1 F 99.1 F Pulse Rate 95 92 85 Respiratory Rate 26 H 25 H 22 H Blood Pressure 127/82 126/70 Pulse Oximetry 95 94 Oxygen Delivery Fraction of Inspired Oxygen 01/16/25 18:00 01/16/25 19:28 01/16/25 19:53 Temperature Pulse Rate 86 83 77 Respiratory Rate Blood Pressure 130/72 Pulse Oximetry 95 Oxygen Delivery Mechanical Ventilation Fraction of Inspired Oxygen 30 01/16/25 20:00 01/16/25 20:00 01/16/25 20:00 Temperature Pulse Rate 88 88 88 Respiratory Rate 27 H 27 H Blood Pressure 132/76 Pulse Oximetry Oxygen Delivery Fraction of Inspired Oxygen 01/16/25 20:00 01/16/25 20:00 01/16/25 20:00 Temperature Pulse Rate 88 88 88 Respiratory Rate 27 H Blood Pressure 132/76 132/76 Pulse Oximetry 94 Oxygen Delivery Mechanical Ventilation Fraction of Inspired Oxygen 30 01/16/25 20:00 01/16/25 20:00 01/16/25 20:11 Temperature Pulse Rate 86 81 Respiratory Rate 25 H Blood Pressure Pulse Oximetry Oxygen Delivery Fraction of Inspired Oxygen 30 01/16/25 20:11 01/16/25 20:25 01/16/25 20:44 Temperature 98.0 F Pulse Rate 81 85 85 Respiratory Rate 25 H 26 H Blood Pressure 130/72 110/63 Pulse Oximetry 91 Oxygen Delivery Fraction of Inspired Oxygen 01/16/25 20:52 01/16/25 21:00 01/16/25 21:02 Temperature 97.7 F 98.3 F Pulse Rate 53 L 85 81 Respiratory Rate 24 H 27 H Blood Pressure 132/76 108/62 86/51 L Pulse Oximetry 93 91 Oxygen Delivery Fraction of Inspired Oxygen 01/16/25 21:03 01/16/25 21:03 01/16/25 22:00 Temperature Pulse Rate 83 83 119 H Respiratory Rate Blood Pressure 94/53 L 94/53 L Pulse Oximetry Oxygen Delivery Fraction of Inspired Oxygen 01/16/25 22:00 01/16/25 22:00 01/16/25 22:00 Temperature 99.1 F 99.0 F Pulse Rate 119 H 119 H 119 H Respiratory Rate 28 H 28 H 28 H Blood Pressure 105/60 105/60 Pulse Oximetry 93 93 Oxygen Delivery Fraction of Inspired Oxygen 01/16/25 22:00 01/16/25 22:00 01/16/25 22:00 Temperature Pulse Rate 119 H 119 H 119 H Respiratory Rate 28 H Blood Pressure 105/60 105/60 Pulse Oximetry Oxygen Delivery Fraction of Inspired Oxygen 01/16/25 22:00 01/16/25 22:38 01/16/25 22:38 Temperature Pulse Rate 119 H 103 H 103 H Respiratory Rate 28 H 28 H Blood Pressure 105/60 Pulse Oximetry Oxygen Delivery Fraction of Inspired Oxygen 01/16/25 23:00 01/16/25 23:00 01/16/25 23:19 Temperature 99.0 F 99.0 F Pulse Rate 91 90 77 Respiratory Rate 29 H 27 H Blood Pressure 126/67 144/76 H Pulse Oximetry 92 92 93 Oxygen Delivery Mechanical Ventilation Fraction of Inspired Oxygen 30 01/16/25 23:47 01/17/25 00:00 01/17/25 00:00 Temperature Pulse Rate 77 91 91 Respiratory Rate 26 H 30 H Blood Pressure 152/87 H Pulse Oximetry Oxygen Delivery Fraction of Inspired Oxygen 01/17/25 00:00 01/17/25 00:00 01/17/25 00:00 Temperature Pulse Rate 91 91 91 Respiratory Rate 30 H Blood Pressure 152/87 H 152/87 H Pulse Oximetry 91 Oxygen Delivery Mechanical Ventilation Fraction of Inspired Oxygen 30 01/17/25 00:00 01/17/25 00:00 01/17/25 00:00 Temperature 99.3 F Pulse Rate 91 83 Respiratory Rate 30 H Blood Pressure 152/87 H Pulse Oximetry 91 Oxygen Delivery Fraction of Inspired Oxygen 30 01/17/25 00:03 01/17/25 01:42 01/17/25 02:00 Temperature Pulse Rate 77 89 83 Respiratory Rate 26 H Blood Pressure 140/78 Pulse Oximetry Oxygen Delivery Fraction of Inspired Oxygen 01/17/25 02:00 01/17/25 02:00 01/17/25 02:00 Temperature 99.8 F H Pulse Rate 83 83 83 Respiratory Rate 26 H 26 H 26 H Blood Pressure 119/70 Pulse Oximetry 92 Oxygen Delivery Fraction of Inspired Oxygen 01/17/25 02:00 01/17/25 02:00 01/17/25 02:00 Temperature Pulse Rate 83 83 83 Respiratory Rate Blood Pressure 119/70 119/70 119/70 Pulse Oximetry Oxygen Delivery Fraction of Inspired Oxygen 01/17/25 02:00 01/17/25 03:40 01/17/25 03:40 Temperature Pulse Rate 85 89 89 Respiratory Rate 22 H 22 H Blood Pressure Pulse Oximetry 91 Oxygen Delivery Mechanical Ventilation Fraction of Inspired Oxygen 30 01/17/25 04:00 01/17/25 04:00 01/17/25 04:00 Temperature Pulse Rate 87 87 87 Respiratory Rate 27 H 27 H Blood Pressure 132/77 Pulse Oximetry Oxygen Delivery Fraction of Inspired Oxygen 01/17/25 04:00 01/17/25 04:00 01/17/25 04:00 Temperature Pulse Rate 87 87 87 Respiratory Rate 27 H Blood Pressure 132/77 132/77 Pulse Oximetry 92 Oxygen Delivery Mechanical Ventilation Fraction of Inspired Oxygen 30 01/17/25 04:00 01/17/25 04:00 01/17/25 04:00 Temperature 100.0 F H Pulse Rate 887 H 96 Respiratory Rate 27 H Blood Pressure 132/77 Pulse Oximetry 92 Oxygen Delivery Fraction of Inspired Oxygen 30 01/17/25 04:10 01/17/25 04:40 01/17/25 05:48 Temperature Pulse Rate 94 82 64 Respiratory Rate Blood Pressure 128/71 101/58 L Pulse Oximetry 95 Oxygen Delivery Mechanical Ventilation Fraction of Inspired Oxygen 30 01/17/25 05:49 01/17/25 06:00 01/17/25 06:00 Temperature Pulse Rate 64 67 67 Respiratory Rate 27 H 27 H Blood Pressure 101/58 L Pulse Oximetry Oxygen Delivery Fraction of Inspired Oxygen 01/17/25 06:00 01/17/25 06:00 01/17/25 06:00 Temperature Pulse Rate 67 67 67 Respiratory Rate Blood Pressure 106/61 106/61 106/61 Pulse Oximetry Oxygen Delivery Fraction of Inspired Oxygen 01/17/25 06:00 01/17/25 06:00 01/17/25 06:20 Temperature 100.5 F H Pulse Rate 67 67 66 Respiratory Rate 27 H 23 H Blood Pressure 106/61 Pulse Oximetry 92 Oxygen Delivery Fraction of Inspired Oxygen 01/17/25 06:20 01/17/25 06:40 01/17/25 06:40 Temperature Pulse Rate 66 59 L 59 L Respiratory Rate 23 H 22 H 22 H Blood Pressure Pulse Oximetry Oxygen Delivery Fraction of Inspired Oxygen 01/17/25 06:50 01/17/25 07:14 01/17/25 07:30 Temperature Pulse Rate 61 62 65 Respiratory Rate Blood Pressure 83/46 L 145/71 H Pulse Oximetry 95 Oxygen Delivery Mechanical Ventilation Fraction of Inspired Oxygen 40 01/17/25 08:00 01/17/25 08:00 01/17/25 08:00 Temperature Pulse Rate 67 67 67 Respiratory Rate 26 H 26 H Blood Pressure 119/66 Pulse Oximetry Oxygen Delivery Fraction of Inspired Oxygen 01/17/25 08:00 01/17/25 08:00 01/17/25 08:00 Temperature 100.4 F H Pulse Rate 67 67 67 Respiratory Rate 26 H Blood Pressure 119/66 119/66 119/66 Pulse Oximetry 95 Oxygen Delivery Fraction of Inspired Oxygen 01/17/25 08:00 01/17/25 08:00 01/17/25 08:00 Temperature Pulse Rate 67 68 Respiratory Rate 26 H Blood Pressure Pulse Oximetry 96 Oxygen Delivery Mechanical Ventilation Fraction of Inspired Oxygen 40 40 01/17/25 08:45 01/17/25 09:00 01/17/25 09:14 Temperature 100.5 F H Pulse Rate 68 76 67 Respiratory Rate 24 H Blood Pressure 124/69 98/55 L 99/53 L Pulse Oximetry 95 Oxygen Delivery Fraction of Inspired Oxygen 01/17/25 09:30 01/17/25 10:00 01/17/25 10:00 Temperature 100.7 F H Pulse Rate 80 72 72 Respiratory Rate 24 H 26 H 26 H Blood Pressure 111/57 L Pulse Oximetry 95 Oxygen Delivery Fraction of Inspired Oxygen 01/17/25 10:00 01/17/25 10:00 01/17/25 10:00 Temperature Pulse Rate 72 72 72 Respiratory Rate Blood Pressure 120/62 120/62 120/62 Pulse Oximetry Oxygen Delivery Fraction of Inspired Oxygen 01/17/25 10:00 01/17/25 10:00 01/17/25 10:15 Temperature 100.7 F H Pulse Rate 72 72 84 Respiratory Rate 26 H 28 H Blood Pressure 120/62 Pulse Oximetry 95 Oxygen Delivery Fraction of Inspired Oxygen 01/17/25 10:15 01/17/25 10:15 01/17/25 10:30 Temperature 100.7 F H Pulse Rate 84 83 80 Respiratory Rate 28 H 27 H Blood Pressure 121/66 119/63 Pulse Oximetry 95 Oxygen Delivery Fraction of Inspired Oxygen 01/17/25 11:10 01/17/25 11:15 01/17/25 11:27 Temperature 100.7 F H 100.5 F H Pulse Rate 75 65 Respiratory Rate 28 H Blood Pressure 117/59 L Pulse Oximetry 94 96 Oxygen Delivery Mechanical Ventilation Fraction of Inspired Oxygen 40 01/17/25 11:28 01/17/25 11:28 01/17/25 12:00 Temperature Pulse Rate 66 66 64 Respiratory Rate 26 H 26 H 24 H Blood Pressure Pulse Oximetry 96 Oxygen Delivery Mechanical Ventilation Fraction of Inspired Oxygen 40 01/17/25 12:00 01/17/25 12:00 01/17/25 12:00 Temperature 100.5 F H Pulse Rate 66 64 Respiratory Rate 24 H Blood Pressure 109/54 L Pulse Oximetry 95 Oxygen Delivery Fraction of Inspired Oxygen 40 01/17/25 12:00 01/17/25 12:00 01/17/25 12:00 Temperature Pulse Rate 64 64 64 Respiratory Rate 24 H 24 H Blood Pressure 109/54 L Pulse Oximetry Oxygen Delivery Fraction of Inspired Oxygen 01/17/25 12:00 01/17/25 12:00 01/17/25 12:10 Temperature 100.5 F H Pulse Rate 64 64 Respiratory Rate Blood Pressure 109/54 L 109/54 L Pulse Oximetry Oxygen Delivery Fraction of Inspired Oxygen 01/17/25 13:52 01/17/25 14:00 01/17/25 14:00 Temperature 100.4 F H Pulse Rate 82 71 76 Respiratory Rate 24 H 26 H Blood Pressure 114/53 L Pulse Oximetry 97 Oxygen Delivery Fraction of Inspired Oxygen 01/17/25 14:00 01/17/25 14:00 01/17/25 14:00 Temperature Pulse Rate 66 66 66 Respiratory Rate 26 H Blood Pressure 113/53 L 113/56 L Pulse Oximetry Oxygen Delivery Fraction of Inspired Oxygen 01/17/25 14:00 01/17/25 14:06 01/17/25 14:12 Temperature Pulse Rate 66 82 80 Respiratory Rate 24 H Blood Pressure 113/56 L Pulse Oximetry 95 Oxygen Delivery Mechanical Ventilation Fraction of Inspired Oxygen 40 01/17/25 16:00 01/17/25 16:00 01/17/25 16:00 Temperature Pulse Rate 73 64 64 Respiratory Rate 24 H Blood Pressure Pulse Oximetry 96 96 Oxygen Delivery Mechanical Ventilation Mechanical Ventilation Fraction of Inspired Oxygen 40 01/17/25 16:00 01/17/25 16:00 Temperature 99.7 F H Pulse Rate 64 Respiratory Rate 25 H Blood Pressure 123/55 L Pulse Oximetry 95 Oxygen Delivery Fraction of Inspired Oxygen 40 Intake/Output Intake/Output: Intake & Output 01/14/25 01/15/25 01/16/25 01/17/25 23:59 23:59 23:59 23:59 Intake Total 3823.0 3076.3 2799.3 1450 Output Total 2050 2825 2125 1350 Balance 1773.0 251.3 674.3 100 Meds/Results Medications: Active Medications Generic Name Dose Route Start Last Admin Trade Name Freq PRN Reason Stop Dose Admin Acetaminophen 650 mg 01/09/25 14:52 Acetaminophen 650 Mg Suppository RECTAL Q6H PRN Mild Pain (1-3) or Fever Acetaminophen 650 mg 01/17/25 10:46 01/17/25 11:10 Acetaminophen Elixir 325 Mg/10.15 Ml Udc PO 650 mg Q4H PRN Administration Mild Pain (1-3) or Fever Albuterol/Ipratropium 3 ml 01/14/25 07:39 Ipratropium 0.5 Mg/Albuterol Sulfate 2.5 Mg Ampul.Neb 3 Ml INHALATION Q6HRT PRN Wheezing Dextrose 12.5 gm 01/10/25 00:27 Dextrose 50% 25 Gm/50 Ml Syringe IV PUSH PRN PRN Hypoglycemia Protocol Glucagon 1 mg 01/10/25 00:27 Glucagon For Inj 1 Mg Vial IM PRN PRN Hypoglycemia Protocol Glucose 15 gm 01/10/25 00:27 Glucose Oral Gel 15 Gm Of Glucse In 37.5 Gm Tube PO PRN PRN Hypoglycemia Protocol Hydrocortisone Sodium Succinate 100 mg 01/16/25 14:00 01/17/25 14:07 Hydrocortisone Sodium Succinate 100 Mg/2 Ml Vial IV PUSH 100 mg Q8HR JENNY Administration Cefepime HCl 1 gm/ Sodium 50 mls @ 100 mls/hr 01/10/25 06:00 01/17/25 06:16 Chloride IVPB 01/19/25 06:29 Infused Q12H JENNY Infusion Dextrose 1,000 mls @ 100 mls/hr 01/10/25 00:27 Dextrose 5% 1,000 Ml IVPB PRN PRN Hypoglycemia Protocol Norepinephrine Bitartrate 8 mg in 250 mls @ 7.5 mls/hr 01/12/25 10:55 01/17/25 14:00 Levophed 8 Mg/D5w 250 Ml IV CONT 4 mcg/min .Q24H JENNY 7.5 mls/hr Protocol Titration 4 MCG/MIN Propofol 100 mls @ 12.984 mls/hr 01/12/25 10:55 01/17/25 14:00 Diprivan IV CONT 20 mcg/kg/min .Q7H43M JENNY 12.98 mls/hr Protocol Titration 20 MCG/KG/MIN Dexmedetomidine HCl 400 mcg in 100 mls @ 27.65 mls/hr 01/14/25 07:45 01/17/25 14:06 Precedex 400 Mcg/100 Ml IV CONT 1 mcg/kg/hr .Q3H37M JENNY 27.65 mls/hr Protocol Administration 1 MCG/KG/HR Vasopressin 100 units/ 100 mls @ 0 mls/hr 01/16/25 13:35 01/17/25 14:00 Dextrose IV CONT 0 units/min .Q0M JENNY 0 mls/hr Protocol Titration Amiodarone HCl/Dextrose 360 mg in 200 mls @ 16.667 mls/hr 01/17/25 17:00 Nexterone 360 Mg/D5w 200 Ml IV CONT .Q12H JENNY 0.5 MG/MIN Insulin Aspart 3 - 6 units 01/10/25 06:00 01/17/25 12:49 Insulin Aspart (*Bkc) 100 Units/Ml SUB-Q Not Given Q6HR JENNY Protocol Multi-Ingred Cream/Lotion/Oil/Oint 1 applic 01/12/25 21:00 01/17/25 08:37 Mineral Oil/White Petrolatum Ointment EACH EYE 1 applic Q12HR JENNY Administration Pantoprazole Sodium 40 mg 01/09/25 21:00 01/17/25 08:37 Pantoprazole Sodium Iv 40 Mg Vial IV PUSH 40 mg Q12HR JENNY Administration Polyethylene Glycol 17 gm 01/12/25 10:42 01/14/25 09:00 Polyethylene Glycol 3350 17 Gm Powd.Pack PO 17 gm QAM PRN Administration Constipation Fluticasone/Salmeterol 2 puff 01/09/25 20:00 01/14/25 20:56 Fluticasone/Salmeterol 115-21 Mcg Inhaler 1 Puff INHALATION Not Given On Hold: 01/14/25 08:00 Q12HRT JENNY Senna/Docusate Sodium 1 tab 01/12/25 21:00 01/16/25 20:26 Senna/Docusate Sodium Tablet PO Not Given HS JENNY Sodium Chloride 20 ml 01/09/25 17:08 Central Line Flush IV PUSH PRN PRN after blood draws Sodium Chloride 20 ml 01/09/25 17:34 01/11/25 05:29 Central Line Flush IV PUSH 20 ml PRN PRN Administration after blood draws Radiology Results: ITS Impressions Abdomen X-Ray 01/09/25 13:38 IMPRESSION: 1: NG tube tip in the stomach. Chest/Abdomen/Pelvis CTA 01/09/25 13:59 IMPRESSION: 1. Extensive airspace disease of the right upper and lower lobe, consistent with pneumonia. 2: Bilateral pleural effusions, right greater than left. 3: Hypodense right renal masses. Cannot exclude renal cell carcinoma. Consider correlation with MRI abdomen with contrast. 4: Small pericardial effusion. Head CT 01/09/25 14:00 IMPRESSION: 1. No acute intracranial hemorrhage. No mass effect. 2. Probable chronic ischemic white matter change. Renal Ultrasound 01/09/25 19:35 IMPRESSION: No hydronephrosis or renal calculi. Indeterminate focus within the interpolar region of the right kidney, for which contrast enhanced CT or MRI (with renal mass protocol) is suggested for further evaluation. Abdomen Ultrasound 01/09/25 19:44 IMPRESSION: Limited evaluation of the pancreas secondary to overlying bowel gas Hepatomegaly with additional findings of portal hypertension, as detailed above. Chest/Abdomen/Pelvis CT 01/15/25 09:42 IMPRESSION: 1. There is a 1.6 cm subpleural spiculated pulmonary nodule in the right lower lobe. A PET/CT and/or biopsy is recommended. 2.Interval decrease in the size of the airspace opacities scattered throughout the right lung. 3.A moderate sized consolidation persists in the right lower lobe. Recommend follow-up to resolution. 4.Small patchy opacities in the left lower lobe. 5.Small right-sided pleural effusion. 6.Tiny left-sided pleural effusion. 7.There is a stable centrilobular emphysema. 8.Redemonstration of the 1.8 cm subtle hypodense right renal mass. A renal mass MRI is recommended. 9. Small amount of fluid and fat saturated scattered throughout the abdomen and pelvis. 10. Extensive anasarca throughout the chest, abdomen and pelvis. Chest X-Ray 01/17/25 06:08 Impression: Small right pleural effusion. Support tubes, as above. Labs Labs: Laboratory Results - last 24 hr 01/15/25 01/16/25 01/16/25 08:06 17:56 18:07 WBC RBC Hgb 6.8 L* Hct 21.8 L MCV MCH MCHC RDW Plt Count MPV Puncture Site ABG pH ABG pCO2 ABG pO2 ABG PO2/FiO2 Ratio ABG HCO3 ABG O2 Saturation ABG O2 Content ABG Base Excess A-a Gradient Oxyhemoglobin Carboxyhemoglobin Methemoglobin Reduced Hemoglobin Total Hemoglobin O2 Delivery Device O2 Liters/Min Minute Volume Vent Rate Vent Mode FiO2 Tidal Volume PEEP Peak Inspir Pressure Pressure Support Sodium Potassium Chloride Carbon Dioxide Anion Gap BUN Creatinine Estim Creat Clear Calc Estimated GFR Glucose POC Capillary Glucose 165 H Calcium Magnesium Total Bilirubin AST ALT Alkaline Phosphatase Total Protein Albumin Blood Type AB Positive Antibody Screen Negative Crossmatch See Detail 01/16/25 01/17/25 01/17/25 23:31 01:39 04:18 WBC 11.4 H RBC 2.45 L Hgb 7.4 L 7.0 L Hct 23.4 L 22.3 L MCV 91.0 MCH 28.6 MCHC 31.4 L RDW 17.7 H Plt Count 120 L MPV 12.3 H Puncture Site ABG pH ABG pCO2 ABG pO2 ABG PO2/FiO2 Ratio ABG HCO3 ABG O2 Saturation ABG O2 Content ABG Base Excess A-a Gradient Oxyhemoglobin Carboxyhemoglobin Methemoglobin Reduced Hemoglobin Total Hemoglobin O2 Delivery Device O2 Liters/Min Minute Volume Vent Rate Vent Mode FiO2 Tidal Volume PEEP Peak Inspir Pressure Pressure Support Sodium 142 Potassium 3.9 Chloride 113 H Carbon Dioxide 22 Anion Gap 7 BUN 86 H Creatinine 1.44 H Estim Creat Clear Calc 58 Estimated GFR 49 L Glucose 153 H POC Capillary Glucose 139 H Calcium 8.1 L Magnesium 2.5 H Total Bilirubin 0.4 AST 34 ALT 116 H Alkaline Phosphatase 51 Total Protein 4.6 L Albumin 2.7 L Blood Type Antibody Screen Crossmatch 01/17/25 01/17/25 05:17 12:09 WBC RBC Hgb Hct MCV MCH MCHC RDW Plt Count MPV Puncture Site Artline ABG pH 7.417 ABG pCO2 31.7 L ABG pO2 80.4 ABG PO2/FiO2 Ratio 2.68 ABG HCO3 20.0 L ABG O2 Saturation 96.2 ABG O2 Content 11.8 L ABG Base Excess -3.9 A-a Gradient 154.1 Oxyhemoglobin 94.0 Carboxyhemoglobin 0.8 Methemoglobin 0.4 Reduced Hemoglobin 4.8 Total Hemoglobin 8.8 L O2 Delivery Device Ventilator O2 Liters/Min Not Reportable Minute Volume Not Reportable Vent Rate 22 Vent Mode Cmv FiO2 30 Tidal Volume 480 PEEP 8 Peak Inspir Pressure Not Reportable Pressure Support Not Reportable Sodium Potassium Chloride Carbon Dioxide Anion Gap BUN Creatinine Estim Creat Clear Calc Estimated GFR Glucose POC Capillary Glucose 155 H Calcium Magnesium Total Bilirubin AST ALT Alkaline Phosphatase Total Protein Albumin Blood Type Antibody Screen Crossmatch
[2025-01-17 18:09] LABS: Hematocrit 24.5 % (42.0-52.0); Hemoglobin 7.7 g/dL (14.0-18.0); Immature Granulocyte Percent A 1.2 % (0-0.5); Lymphocytes Absolute Auto 0.54 K/mm3 (0.9-3.2); Mean Corpuscular HGB Conc 31.4 g/dl (32-36); Mean Corpuscular Hemoglobin 28.9 pg (26-34); Mean Corpuscular Volume 92.1 fl (80-100); Nucleated Red Blood Cells Absolute Auto 0.020 K/mm3 (0.0-0.012); Nucleated Red Blood Cells Perc 0.1 % (0.0-0.2); Platelet Count Result 133 k/mm3 (150-375); Red Blood Count 2.66 M/mm3 (4.6-6.20); White Blood Count 15.5 K/mm3 (4.5-10.0)
[2025-01-18] VITALS (51 sets, daily range): BP systolic 86–158; BP diastolic 48–86; PULSE 36–106; RESP 11–26; TEMP 35.9–36.8; O2SAT 94–99
[2025-01-18] MEDS: PROPOFOL IV EMULSION 100 ML 12.98 MG IV CONT (02:13)
[2025-01-18] MEDS: dexmedeTOMIDine 400 MCG/100 ML 400 MCG/100 ML BAG 27.65 MCG IV CONT ×2 (04:10)
[2025-01-18 04:49] LABS: Hematocrit 22.6 % (42.0-52.0); Mean Corpuscular HGB Conc 30.5 g/dl (32-36); Mean Corpuscular Hemoglobin 28.3 pg (26-34); Mean Corpuscular Volume 92.6 fl (80-100); Platelet Count Result 102 k/mm3 (150-375); Red Blood Count 2.44 M/mm3 (4.6-6.20); White Blood Count 9.9 K/mm3 (4.5-10.0)
[2025-01-18 04:58] LABS: Hemoglobin 6.9 g/dL (14.0-18.0)
[2025-01-18] MEDS: CEFEPIME 1 GM in SODIUM CHLORIDE 0.9% IV 50 ML 100 ML IVPB ×2 (05:04→17:38)
[2025-01-18 05:14] LABS: Alanine Aminotransferase 78 U/L (6-50); Albumin Level 2.4 g/dL (3.5-5.1); Alkaline Phosphatase 43 U/L (38-126); Anion Gap 7 mmol/L (4-12); Aspartate Amino Transferase 20 U/L (17-59); Bilirubin,Total 0.2 mg/dL (0.2-1.3); Blood Urea Nitrogen 76 mg/dL (9-20); Calcium 8.1 mg/dL (8.4-10.2); Carbon Dioxide 22 mmol/L (22-30); Chloride 117 mmol/L (98-107); Estimated CRCL calculation 56 ml/min; Estimated Glomerular Filt Rate 47; Glucose 140 mg/dL (65-110); Magnesium 2.5 mg/dL (1.6-2.3); Potassium 3.1 mmol/L (3.4-5.0); Sodium 146 mmol/L (137-145); Total Protein 4.4 g/dL (6.3-8.2); Triglycerides 121 mg/dL (<150)
[2025-01-18] MEDS: HYDROCORTISONE SODIUM SUCCINATE 100 MG/2 ML VIAL IV PUSH (05:17)
[2025-01-18 06:10] LABS: Alveolar/Arterial O2 Gradient 136.2 mmHg; Carboxyhemoglobin 1.0 % THb (0-2.0); Fractional Inspired Oxygen 40 %; HCO3 ABG 19.4 mEq/l (22.0-26.0); Methemoglobin ABG 0.3 %THb (0-1.5); Oxygen Content ABG 19.9 %vol (16.0-22.0); Oxygen Saturation ABG 97.6 % (95.0-100.0); PCO2 ABG 37.0 mmHg (35.0-45.0); PO2 ABG 106.5 mmHg (80.0-100.0); PO2 FiO2 Ratio Arterial Blood 2.66 %; Reduced Hemoglobin 2.1 %THb (0-5.0)
[2025-01-18 06:19] LABS: Site Drawn ARTLINE
[2025-01-18] MEDS: TUBING, BLOOD PLUM PUMP TUBING 1 EACH XX (08:11)
[2025-01-18] MEDS: MINERAL OIL/WHITE PETROLATUM OINTMENT 1 APPLIC EACH EYE ×2 (08:12→20:11)
[2025-01-18] MEDS: PANTOPRAZOLE SODIUM IV 40 MG VIAL IV PUSH ×2 (08:12→20:11)
--- NOTE | 2025-01-18 08:20 | WPDINTPN ---
Progress Note: A&P Assessment and Plan (1) Acute hypoxic respiratory failure: Code(s): J96.01 - Acute respiratory failure with hypoxia Status: Acute Assessment and Plan: 01/09: Patient presented the ED via EMS after the called 911 as patient has been laying in bed with agonal breathing for the last 2 days, upon arrival of the EMS patient was unresponsive, with agonal breaths. Bag-mask ventilation was started patient was hypotensive, in the ER patient had a GCS of 3 and was emergently intubated. Post intubation patient is on O2 sats were in the upper 60s to 70s. Patient was in a PEEP of 15 and 100% FiO2 -01/09: I was asked to come down to the ER to evaluate the patient, patient was given rocuronium, and revealed emergently to the ICU, -01/09: emergent bronch was performed in the ICU with significant thick mucus plugs in the right mainstem, right upper lobe and right lower lobe. Suction and cleared most of the secretions with the bronchoscope.O2 sats improved to 95-99% -chest x-ray and ABGs reviewed -ventilator adjusted peep is at 8, FiO2 at 30% -chest physiotherapy per RT -status post Pulmozyme and Mucomyst treatment, secretions much improved -continue DuoNebs p.r.n. -continue Symbicort inhaler -status post course of Solu-Medrol -currently on propofol and Precedex infusion. Will wean down propofol 01/16 weaning trial was performed and patient did adequate with adequate RSBI in ABG but patient is due for a EGD this afternoon hence will leave him on the ventilator. Also with upper GI bleed will not be able to use BiPAP once extubated. IV Lasix given 01/17 continue mechanical ventilation. We will delay weaning until the GI bleed is resolved and hemoglobin is stabilized. Even when patient gets extubated I anticipate patient will need BiPAP which will not be possible with GI bleed. ABG chest x-ray reviewed 01/18 patient going back for EGD today. Weaning will depend on EGD results 01/09: CT PE protocol, abdomen and pelvis with no evidence of pulmonary embolism, extensive right upper lobe and lower lobe airspace disease consistent with pneumonia. Bilateral pleural effusion, right greater than left. Hyperdense right renal masses, cannot exclude renal cell carcinoma, consider correlation with MRI abdomen with contrast. Small pericardial (2) Bleeding: Code(s): R58 - Hemorrhage, not elsewhere classified Status: Acute Assessment and Plan: 01/15 Increase vasopressor requirement over last 24 hours. Hemoglobin this morning showed dropped to 7.1. Patient is on anticoagulation. I suspect petition bleeding although there is no obvious clinical sign. Patient has not any bowel movement. I aspirated tube feed and it does look dark but not conclusive of bleeding. Tube feeds were held, OG tube to L IS, and patient was made NPO. Heparin was discontinued and CBC was monitored. Patient was transfuse 2 units of PRBC over last [address] scan of abdomen pelvis did not show any hematoma or retroperitoneal hemorrhage. 01/16 patient had dark bowel movement today and also OG tube shows blood-tinged output consistent with upper GI bleed. Patient underwent EGD which showed gastritis active bleed. Both ulcers were treated with epinephrine injection Hemoglobin is 6.9. Will transfuse 1 more unit of PRBC. Discussed with GI regarding repeat EGD and patient will be going for repeat EGD today Anticoagulation has been discontinued. Continue to monitor hemoglobin Continue PPI IV q.12 hours GI following (3) Septic shock: Code(s): A41.9 - Sepsis, unspecified organism; R65.21 - Severe sepsis with septic shock Status: Acute Assessment and Plan: Patient with hypotension, acute respiratory failure, lactic acidosis, tachycardia -UA was negative -patient was treated with IV fluids and started on vasopressors. Patient eventually came off of vasopressors but Levophed was resumed on 01/14 -now off pressors. Will wean hydrocortisone -will maintain MAP > 65 mm or SBP > 100 mmHg at all times for adequate end organ perfusion -continue cefepime. Completed course of doxycycline, Flagyl discontinued on 01/12 -01/09: Blood culture -Gram-positive cocci which was Staph epidermis -01/09: Sputum culture -pansensitive Pseudomonas -01/09: Urine Legionella pending -01/11: Repeat blood cultures -preliminary report is negative x2 -01/09: Urine Legionella is pending (4) Pneumonia: Qualifiers: Laterality: right Lung location: unspecified part of lung Pneumonia type: due to unspecified organism Qualified Code(s): J18.9 - Pneumonia, unspecified organism Code(s): J18.9 - Pneumonia, unspecified organism Status: Acute Assessment and Plan: Likely pneumonia on of the right upper and lower lobe -COVID, RSV and influenza were NEGATIVE -continue antibiotics as above -currently on mechanical ventilation (5) Acute exacerbation of chronic obstructive pulmonary disease: Code(s): J44.1 - Chronic obstructive pulmonary disease with (acute) exacerbation Status: Acute Assessment and Plan: History of is COPD with emphysema seen on CT scan of the chest -continue bronchodilators as above (6) Atrial fibrillation: Qualifiers: Atrial fibrillation type: unspecified Qualified Code(s): I48.91 - Unspecified atrial fibrillation Code(s): I48.91 - Unspecified atrial fibrillation Status: Acute Assessment and Plan: History of atrial flutter/fibrillation patient is on apixaban at home, hold apixaban for now -currently in AFib, RVR with heart rates in the 70s -01/18 overnight patient became bradycardic and amiodarone was discontinued - 01/15 discontinued heparin infusion due to upper GI bleed (7) Polysubstance use disorder: Code(s): F19.90 - Other psychoactive substance use, unspecified, uncomplicated Status: Acute Assessment and Plan: Urine tox screen was positive for cannabis and cocaine Will drug counselor patient once he is extubated (8) Transaminitis: Code(s): R74.01 - Elevation of levels of liver transaminase levels Status: Acute Assessment and Plan: Significantly elevated LFTs, -RUQ ultrasound shows hepatomegaly with additional findings of portal hypertension -hepatitis panel was negative -could also be related to hypoxia, hypotension/shock -continue to monitor liver function tests (9) Elevated troponin: Code(s): R79.89 - Other specified abnormal findings of blood chemistry Status: Acute Assessment and Plan: Elevated troponin 0.215 -could be related to type 2 infarct, is EKG did not show any ST elevation -troponins were flat, 01/10/2025: Echocardiogram Summary 1. Complete two-dimensional, color flow and Doppler transthoracic echocardiogram is performed. 2. Somewhat challenging exam with patient on ventilator support. 3. Normal left ventricular size with overall good systolic function, paradoxical septal motion consistent with bundle branch block. EF 55-60% 4. Right ventricular enlargement with systolic dysfunction. 5. Mild tricuspid regurgitation, estimated RV systolic pressure 51 mmHg. 6. Sclerotic aortic valve which exhibits preserved leaflet excursion. (10) Current smoker: Code(s): F17.200 - Nicotine dependence, unspecified, uncomplicated Status: Acute Assessment and Plan: Will drug counselor patient on tobacco cessation once he is extubated (11) CHF (congestive heart failure): Qualifiers: Heart failure type: unspecified Heart failure chronicity: chronic Qualified Code(s): I50.9 - Heart failure, unspecified Code(s): I50.9 - Heart failure, unspecified Status: Acute Assessment and Plan: Patient has a history of CHF, likely HFpEF -proBNP > 59207 Echocardiogram as above, EF of 55%, RVSP 51 mmHg, moderate pulmonary hypertension likely related to COPD -chest x-ray does not show pulmonary edema -Lasix IV given 01/16 (12) Electrolyte imbalance: Code(s): E87.8 - Other disorders of electrolyte and fluid balance, not elsewhere classified Status: Acute Assessment and Plan: Potassium replacement ordered (13) Acute renal failure: Code(s): N17.9 - Acute kidney failure, unspecified Status: Acute Assessment and Plan: 01/09/2025: Patient presented with creatinine of 3.81 (baseline 1.10-1.23). Multifactorial likely related to infection, sepsis, shock, medications, polysubstance abuse -Adequately fluid-resuscitated -Urine lytes showed prerenal picture -renal ultrasound with no hydronephrosis or calculi, intermittent focus within the interpolar region of the right kidney for which contrast enhanced CT or MRI is suggested -urine eosinophils negative -CPK levels are normal -creatinine improved to 1.44 Continue to monitor renal function, electrolytes and urine output Plan DVT prophylaxis: Patient was on Heparin infusion which is now off due to GI bleed. SCDs Stress ulcer prophylaxis: Protonix Nutrition: Tube feeds on hold as patient is going for EGD Code Status: DNR Critical Care Time Spent: 30 minutes Due to a high probability of clinically significant, life threatening deterioration, the patient required my highest level of preparedness to intervene emergently and I personally spent this critical care time directly and personally managing the patient. This critical care time included obtaining a history; examining the patient; pulse oximetry; ordering and review of studies; arranging urgent treatment with development of a management plan; evaluation of patient's response to treatment; frequent reassessment; and discussions with other providers. It was exclusive of separately billable procedures and treating other patients and teaching time. Please see Assessment and Plan section and the rest of the note for further information on patient assessment and treatment This dictation may have been done utilizing a voice recognition system. Attempts have been made to correct errors. However, there may be uncorrected grammatical, spelling, and recognitions errors present. Subjective Date/time seen: 01/18/25 Overnight events reviewed. Afebrile Continues to be on mechanical ventilation 40% FiO2 Continues to be sedated with propofol and Precedex Overnight patient became bradycardic and amiodarone was discontinued. He has been weaned off of vasopressors. He he continues to have dark black stool output from FMS Awake and follows commands, nodes head appropriately to questions Interval history: Reason for consult: Acute hypoxic respiratory failure, altered mental status, pneumonia, acute kidney injury, hyperkalemia, severe sepsis/shock, transaminitis 01/09: Bronchoscopy 01/16 EGD Review of Systems Review of Systems: ROS unobtainable: Yes unobtainable due to endotracheal tube, unobtainable due to medical condition and unobtainable due to mental status Exam Narrative: General: Patient intubated and sedated, in no acute distress at this time HEENT:? Pupils equally reactive, sclera is clear, ETT in place Neck:? Supple Respiratory:? Coarse breath sounds bilaterally R > L, decreased breath sounds at right base, distant breath sounds Cardiac:? Irregularly irregular, tachycardia Abdomen:? Soft, nontender, nondistended, hypoactive bowel sounds blood-tinged output from OG tube, FMS in place with dark black stool Extremities:? Extremities are warm, palpable pedal pulse Neuro:? Patient intubated, sedated, he follows commands with all 4 extremities, PERRL Skin:? No skin lesions noted Psych:? Unable to assess at this time Objective Data Vital Signs Vital Signs: Vital Signs - 24 hr 01/17/25 08:45 01/17/25 09:00 01/17/25 09:14 Temperature 38.1 C H Pulse Rate 68 76 67 Respiratory Rate 24 H Blood Pressure 124/69 98/55 L 99/53 L Pulse Oximetry 95 Oxygen Delivery Fraction of Inspired Oxygen 01/17/25 09:30 01/17/25 10:00 01/17/25 10:00 Temperature 38.2 C H Pulse Rate 80 72 72 Respiratory Rate 24 H 26 H 26 H Blood Pressure 111/57 L Pulse Oximetry 95 Oxygen Delivery Fraction of Inspired Oxygen 01/17/25 10:00 01/17/25 10:00 01/17/25 10:00 Temperature Pulse Rate 72 72 72 Respiratory Rate Blood Pressure 120/62 120/62 120/62 Pulse Oximetry Oxygen Delivery Fraction of Inspired Oxygen 01/17/25 10:00 01/17/25 10:00 01/17/25 10:15 Temperature 38.2 C H Pulse Rate 72 72 84 Respiratory Rate 26 H 28 H Blood Pressure 120/62 Pulse Oximetry 95 Oxygen Delivery Fraction of Inspired Oxygen 01/17/25 10:15 01/17/25 10:15 01/17/25 10:30 Temperature 38.2 C H Pulse Rate 84 83 80 Respiratory Rate 28 H 27 H Blood Pressure 121/66 119/63 Pulse Oximetry 95 Oxygen Delivery Fraction of Inspired Oxygen 01/17/25 11:10 01/17/25 11:15 01/17/25 11:27 Temperature 38.2 C H 38.1 C H Pulse Rate 75 65 Respiratory Rate 28 H Blood Pressure 117/59 L Pulse Oximetry 94 96 Oxygen Delivery Mechanical Ventilation Fraction of Inspired Oxygen 40 01/17/25 11:28 01/17/25 11:28 01/17/25 12:00 Temperature Pulse Rate 66 66 64 Respiratory Rate 26 H 26 H 24 H Blood Pressure Pulse Oximetry 96 Oxygen Delivery Mechanical Ventilation Fraction of Inspired Oxygen 40 01/17/25 12:00 01/17/25 12:00 01/17/25 12:00 Temperature 38.1 C H Pulse Rate 66 64 Respiratory Rate 24 H Blood Pressure 109/54 L Pulse Oximetry 95 Oxygen Delivery Fraction of Inspired Oxygen 40 01/17/25 12:00 01/17/25 12:00 01/17/25 12:00 Temperature Pulse Rate 64 64 64 Respiratory Rate 24 H 24 H Blood Pressure 109/54 L Pulse Oximetry Oxygen Delivery Fraction of Inspired Oxygen 01/17/25 12:00 01/17/25 12:00 01/17/25 12:10 Temperature 38.1 C H Pulse Rate 64 64 Respiratory Rate Blood Pressure 109/54 L 109/54 L Pulse Oximetry Oxygen Delivery Fraction of Inspired Oxygen 01/17/25 13:52 01/17/25 14:00 01/17/25 14:00 Temperature 38.0 C H Pulse Rate 82 71 76 Respiratory Rate 24 H 26 H Blood Pressure 114/53 L Pulse Oximetry 97 Oxygen Delivery Fraction of Inspired Oxygen 01/17/25 14:00 01/17/25 14:00 01/17/25 14:00 Temperature Pulse Rate 66 66 66 Respiratory Rate 26 H Blood Pressure 113/53 L 113/56 L Pulse Oximetry Oxygen Delivery Fraction of Inspired Oxygen 01/17/25 14:00 01/17/25 14:06 01/17/25 14:12 Temperature Pulse Rate 66 82 80 Respiratory Rate 24 H Blood Pressure 113/56 L Pulse Oximetry 95 Oxygen Delivery Mechanical Ventilation Fraction of Inspired Oxygen 40 01/17/25 16:00 01/17/25 16:00 01/17/25 16:00 Temperature Pulse Rate 73 64 64 Respiratory Rate 24 H Blood Pressure Pulse Oximetry 96 96 Oxygen Delivery Mechanical Ventilation Mechanical Ventilation Fraction of Inspired Oxygen 40 01/17/25 16:00 01/17/25 16:00 01/17/25 16:00 Temperature 37.6 C H Pulse Rate 64 64 Respiratory Rate 25 H Blood Pressure 123/55 L 123/55 L Pulse Oximetry 95 Oxygen Delivery Fraction of Inspired Oxygen 40 01/17/25 16:00 01/17/25 17:20 01/17/25 17:21 Temperature Pulse Rate 67 66 66 Respiratory Rate 24 H Blood Pressure 123/55 L 121/57 L Pulse Oximetry Oxygen Delivery Fraction of Inspired Oxygen 01/17/25 17:21 01/17/25 18:00 01/17/25 18:00 Temperature Pulse Rate 66 67 64 Respiratory Rate 24 H 24 H Blood Pressure 114/66 Pulse Oximetry Oxygen Delivery Fraction of Inspired Oxygen 01/17/25 18:00 01/17/25 18:00 01/17/25 18:00 Temperature Pulse Rate 64 71 64 Respiratory Rate Blood Pressure 114/66 124/59 L Pulse Oximetry Oxygen Delivery Fraction of Inspired Oxygen 01/17/25 18:00 01/17/25 18:31 01/17/25 18:31 Temperature 37.7 C H Pulse Rate 64 67 67 Respiratory Rate 28 H 24 H 24 H Blood Pressure 127/60 Pulse Oximetry 92 Oxygen Delivery Fraction of Inspired Oxygen 01/17/25 20:00 01/17/25 20:00 01/17/25 20:00 Temperature 37.1 C Pulse Rate 63 63 Respiratory Rate 22 H 22 H Blood Pressure 127/60 Pulse Oximetry 95 95 Oxygen Delivery Mechanical Ventilation Fraction of Inspired Oxygen 40 40 01/17/25 20:00 01/17/25 20:00 01/17/25 20:00 Temperature Pulse Rate 63 68 68 Respiratory Rate 22 H 22 H Blood Pressure Pulse Oximetry Oxygen Delivery Fraction of Inspired Oxygen 01/17/25 20:00 01/17/25 20:00 01/17/25 20:00 Temperature Pulse Rate 68 68 68 Respiratory Rate Blood Pressure 127/60 127/60 127/60 Pulse Oximetry Oxygen Delivery Fraction of Inspired Oxygen 01/17/25 20:55 01/17/25 21:00 01/17/25 21:00 Temperature Pulse Rate 64 69 69 Respiratory Rate 22 H 22 H Blood Pressure Pulse Oximetry 94 Oxygen Delivery Mechanical Ventilation Fraction of Inspired Oxygen 01/17/25 21:45 01/17/25 22:00 01/17/25 22:00 Temperature Pulse Rate 63 55 L 55 L Respiratory Rate 22 H 22 H Blood Pressure 124/61 Pulse Oximetry Oxygen Delivery Fraction of Inspired Oxygen 01/17/25 22:00 01/17/25 22:00 01/17/25 22:00 Temperature Pulse Rate 55 L 55 L 55 L Respiratory Rate Blood Pressure 107/51 L 107/51 L 107/51 L Pulse Oximetry Oxygen Delivery Fraction of Inspired Oxygen 01/17/25 22:00 01/17/25 22:00 01/17/25 23:30 Temperature 36.9 C Pulse Rate 55 L 55 L 54 L Respiratory Rate 22 H Blood Pressure 107/51 L Pulse Oximetry 95 95 Oxygen Delivery Mechanical Ventilation Fraction of Inspired Oxygen 01/18/25 00:00 01/18/25 00:00 01/18/25 00:00 Temperature Pulse Rate 52 L 52 L Respiratory Rate 22 H Blood Pressure Pulse Oximetry 95 Oxygen Delivery Mechanical Ventilation Fraction of Inspired Oxygen 40 40 01/18/25 00:00 01/18/25 00:00 01/18/25 00:00 Temperature 36.8 C Pulse Rate 52 L 52 L 52 L Respiratory Rate 22 H 22 H Blood Pressure 121/58 L 121/58 L Pulse Oximetry 95 Oxygen Delivery Fraction of Inspired Oxygen 01/18/25 00:00 01/18/25 00:00 01/18/25 00:00 Temperature Pulse Rate 52 L 52 L 51 L Respiratory Rate 22 H Blood Pressure 121/58 L 121/58 L Pulse Oximetry Oxygen Delivery Fraction of Inspired Oxygen 01/18/25 00:00 01/18/25 02:00 01/18/25 02:00 Temperature 36.6 C Pulse Rate 51 L 53 L 53 L Respiratory Rate 22 H 22 H Blood Pressure 125/62 Pulse Oximetry 95 Oxygen Delivery Fraction of Inspired Oxygen 01/18/25 02:00 01/18/25 02:00 01/18/25 02:00 Temperature Pulse Rate 53 L 53 L 53 L Respiratory Rate 22 H 22 H Blood Pressure 125/62 Pulse Oximetry Oxygen Delivery Fraction of Inspired Oxygen 01/18/25 02:00 01/18/25 02:00 01/18/25 02:08 Temperature Pulse Rate 53 L 53 L 54 L Respiratory Rate Blood Pressure 125/62 125/62 124/60 Pulse Oximetry Oxygen Delivery Fraction of Inspired Oxygen 01/18/25 02:13 01/18/25 02:13 01/18/25 02:30 Temperature Pulse Rate 59 L 59 L 55 L Respiratory Rate 22 H 22 H Blood Pressure Pulse Oximetry 95 Oxygen Delivery Mechanical Ventilation Fraction of Inspired Oxygen 01/18/25 03:00 01/18/25 04:00 01/18/25 04:00 Temperature Pulse Rate 55 L 56 L 56 L Respiratory Rate 22 H Blood Pressure 112/54 L 102/48 L Pulse Oximetry Oxygen Delivery Fraction of Inspired Oxygen 01/18/25 04:00 01/18/25 04:00 01/18/25 04:00 Temperature Pulse Rate 56 L 56 L 56 L Respiratory Rate 22 H Blood Pressure 102/48 L 102/48 L Pulse Oximetry Oxygen Delivery Fraction of Inspired Oxygen 01/18/25 04:00 01/18/25 04:00 01/18/25 04:00 Temperature 36.5 C Pulse Rate 56 L 56 L Respiratory Rate 22 H 22 H Blood Pressure 102/48 L Pulse Oximetry 95 95 Oxygen Delivery Mechanical Ventilation Fraction of Inspired Oxygen 40 40 01/18/25 04:00 01/18/25 04:10 01/18/25 05:00 Temperature Pulse Rate 56 L 53 L 42 L Respiratory Rate 22 H 22 H Blood Pressure Pulse Oximetry Oxygen Delivery Fraction of Inspired Oxygen 01/18/25 05:14 01/18/25 05:14 01/18/25 05:30 Temperature Pulse Rate 36 L 36 L 56 L Respiratory Rate 22 H Blood Pressure 102/49 L Pulse Oximetry 94 Oxygen Delivery Mechanical Ventilation Fraction of Inspired Oxygen 01/18/25 06:00 01/18/25 06:00 01/18/25 06:00 Temperature 36.2 C L Pulse Rate 61 61 61 Respiratory Rate 22 H 22 H Blood Pressure 109/58 L Pulse Oximetry 95 Oxygen Delivery Fraction of Inspired Oxygen 01/18/25 06:00 01/18/25 06:07 01/18/25 08:00 Temperature Pulse Rate 61 61 59 L Respiratory Rate 22 H 22 H Blood Pressure 109/58 L Pulse Oximetry Oxygen Delivery Fraction of Inspired Oxygen 01/18/25 08:06 Temperature 36.3 C L Pulse Rate 64 Respiratory Rate 26 H Blood Pressure 118/66 Pulse Oximetry 98 Oxygen Delivery Fraction of Inspired Oxygen Intake/Output Intake/Output: Intake & Output 01/15/25 01/16/25 01/17/25 01/18/25 23:59 23:59 23:59 23:59 Intake Total 3076.3 2799.3 2155.6 890.4 Output Total 2825 2125 2100 1300 Balance 251.3 674.3 55.6 -409.6 Meds/Results Medications: Active Medications Generic Name Dose Route Start Last Admin Trade Name Freq PRN Reason Stop Dose Admin Acetaminophen 650 mg 01/09/25 14:52 Acetaminophen 650 Mg Suppository RECTAL Q6H PRN Mild Pain (1-3) or Fever Acetaminophen 650 mg 01/17/25 10:46 01/17/25 11:10 Acetaminophen Elixir 325 Mg/10.15 Ml Udc PO 650 mg Q4H PRN Administration Mild Pain (1-3) or Fever Albuterol/Ipratropium 3 ml 01/14/25 07:39 Ipratropium 0.5 Mg/Albuterol Sulfate 2.5 Mg Ampul.Neb 3 Ml INHALATION Q6HRT PRN Wheezing Dextrose 12.5 gm 01/10/25 00:27 Dextrose 50% 25 Gm/50 Ml Syringe IV PUSH PRN PRN Hypoglycemia Protocol Glucagon 1 mg 01/10/25 00:27 Glucagon For Inj 1 Mg Vial IM PRN PRN Hypoglycemia Protocol Glucose 15 gm 01/10/25 00:27 Glucose Oral Gel 15 Gm Of Glucse In 37.5 Gm Tube PO PRN PRN Hypoglycemia Protocol Hydrocortisone Sodium Succinate 100 mg 01/19/25 09:00 Hydrocortisone Sodium Succinate 100 Mg/2 Ml Vial IV PUSH QAM [facility] Cefepime HCl 1 gm/ Sodium 50 mls @ 100 mls/hr 01/10/25 06:00 01/18/25 05:34 Chloride IVPB 01/19/25 06:29 Infused Q12H JENNY Infusion Dextrose 1,000 mls @ 100 mls/hr 01/10/25 00:27 Dextrose 5% 1,000 Ml IVPB PRN PRN Hypoglycemia Protocol Propofol 100 mls @ 12.984 mls/hr 01/12/25 10:55 01/18/25 08:00 Diprivan IV CONT 20 mcg/kg/min .Q7H43M JENNY 12.98 mls/hr Protocol Titration 20 MCG/KG/MIN Dexmedetomidine HCl 400 mcg in 100 mls @ 19.355 mls/hr 01/14/25 07:45 01/18/25 06:00 Precedex 400 Mcg/100 Ml IV CONT 0.7 mcg/kg/hr .Q5H10M JENNY 19.36 mls/hr Protocol Titration 0.7 MCG/KG/HR Potassium Chloride 40 meq/ 520 mls @ 130 mls/hr 01/18/25 08:30 Dextrose IVPB 01/18/25 12:29 ONCE ONE Insulin Aspart 3 - 6 units 01/10/25 06:00 01/18/25 05:19 Insulin Aspart (*Bkc) 100 Units/Ml SUB-Q Not Given Q6HR JENNY Protocol Multi-Ingred Cream/Lotion/Oil/Oint 1 applic 01/12/25 21:00 01/18/25 08:12 Mineral Oil/White Petrolatum Ointment EACH EYE 1 applic Q12HR JENNY Administration Pantoprazole Sodium 40 mg 01/09/25 21:00 01/18/25 08:12 Pantoprazole Sodium Iv 40 Mg Vial IV PUSH 40 mg Q12HR JENNY Administration Polyethylene Glycol 17 gm 01/12/25 10:42 01/14/25 09:00 Polyethylene Glycol 3350 17 Gm Powd.Pack PO 17 gm QAM PRN Administration Constipation Fluticasone/Salmeterol 2 puff 01/09/25 20:00 01/14/25 20:56 Fluticasone/Salmeterol 115-21 Mcg Inhaler 1 Puff INHALATION Not Given On Hold: 01/14/25 08:00 Q12HRT JENNY Senna/Docusate Sodium 1 tab 01/12/25 21:00 01/17/25 19:47 Senna/Docusate Sodium Tablet PO Not Given HS JENNY Sodium Chloride 20 ml 01/09/25 17:08 Central Line Flush IV PUSH PRN PRN after blood draws Sodium Chloride 20 ml 01/09/25 17:34 01/11/25 05:29 Central Line Flush IV PUSH 20 ml PRN PRN Administration after blood draws Radiology Results: ITS Impressions Chest/Abdomen/Pelvis CTA 01/09/25 13:59 IMPRESSION: 1. Extensive airspace disease of the right upper and lower lobe, consistent with pneumonia. 2: Bilateral pleural effusions, right greater than left. 3: Hypodense right renal masses. Cannot exclude renal cell carcinoma. Consider correlation with MRI abdomen with contrast. 4: Small pericardial effusion. Head CT 01/09/25 14:00 IMPRESSION: 1. No acute intracranial hemorrhage. No mass effect. 2. Probable chronic ischemic white matter change. Renal Ultrasound 01/09/25 19:35 IMPRESSION: No hydronephrosis or renal calculi. Indeterminate focus within the interpolar region of the right kidney, for which contrast enhanced CT or MRI (with renal mass protocol) is suggested for further evaluation. Abdomen Ultrasound 01/09/25 19:44 IMPRESSION: Limited evaluation of the pancreas secondary to overlying bowel gas Hepatomegaly with additional findings of portal hypertension, as detailed above. Chest/Abdomen/Pelvis CT 01/15/25 09:42 IMPRESSION: 1. There is a 1.6 cm subpleural spiculated pulmonary nodule in the right lower lobe. A PET/CT and/or biopsy is recommended. 2.Interval decrease in the size of the airspace opacities scattered throughout the right lung. 3.A moderate sized consolidation persists in the right lower lobe. Recommend follow-up to resolution. 4.Small patchy opacities in the left lower lobe. 5.Small right-sided pleural effusion. 6.Tiny left-sided pleural effusion. 7.There is a stable centrilobular emphysema. 8.Redemonstration of the 1.8 cm subtle hypodense right renal mass. A renal mass MRI is recommended. 9. Small amount of fluid and fat saturated scattered throughout the abdomen and pelvis. 10. Extensive anasarca throughout the chest, abdomen and pelvis. Chest X-Ray 01/18/25 05:48 Impression: Normal right pleural effusion and probable right basilar pulmonary edema/atelectasis. Support tubes, as above. Distal tip of NG tube is not well delineated, and the side-port may be in the distal esophagus. Consider abdominal radiograph for advancement of NG tube. Abdomen X-Ray 01/18/25 06:34 Impression: NG tube in satisfactory position. Suspected small bowel obstruction. Labs Labs: Laboratory Results - last 24 hr 01/15/25 01/17/25 01/17/25 08:06 12:09 17:41 WBC 15.5 H RBC 2.66 L Hgb 7.7 L Hct 24.5 L MCV 92.1 MCH 28.9 MCHC 31.4 L RDW 17.8 H Plt Count 133 L MPV 12.3 H Immature Gran % (Auto) 1.2 H Neut % (Auto) 89.7 H Lymph % (Auto) 3.5 L [place] % (Auto) 5.5 Eos % (Auto) 0.1 Baso % (Auto) 0.0 L Lymph # (Auto) 0.54 L [place] # (Auto) 0.9 H Eos # (Auto) 0.0 Baso # (Auto) 0.0 Abs Immat Gran (auto) 0.18 H Absolute Neuts (auto) 13.9 H Absolute Nucleated RBC 0.020 H Nucleated RBC % 0.1 Puncture Site ABG pH ABG pCO2 ABG pO2 ABG PO2/FiO2 Ratio ABG HCO3 ABG O2 Saturation ABG O2 Content ABG Base Excess A-a Gradient Oxyhemoglobin Carboxyhemoglobin Methemoglobin Reduced Hemoglobin Total Hemoglobin O2 Delivery Device O2 Liters/Min FiO2 Sodium Potassium Chloride Carbon Dioxide Anion Gap BUN Creatinine Estim Creat Clear Calc Estimated GFR Glucose POC Capillary Glucose 155 H Calcium Magnesium Total Bilirubin AST ALT Alkaline Phosphatase Total Protein Albumin Triglycerides Blood Type AB Positive Antibody Screen Negative Crossmatch See Detail 01/17/25 01/17/25 01/18/25 18:36 23:59 04:40 WBC 9.9 RBC 2.44 L Hgb 6.9 L* Hct 22.6 L MCV 92.6 MCH 28.3 MCHC 30.5 L RDW 17.9 H Plt Count 102 L MPV 11.1 H Immature Gran % (Auto) Neut % (Auto) Lymph % (Auto) [place] % (Auto) Eos % (Auto) Baso % (Auto) Lymph # (Auto) [place] # (Auto) Eos # (Auto) Baso # (Auto) Abs Immat Gran (auto) Absolute Neuts (auto) Absolute Nucleated RBC Nucleated RBC % Puncture Site ABG pH ABG pCO2 ABG pO2 ABG PO2/FiO2 Ratio ABG HCO3 ABG O2 Saturation ABG O2 Content ABG Base Excess A-a Gradient Oxyhemoglobin Carboxyhemoglobin Methemoglobin Reduced Hemoglobin Total Hemoglobin O2 Delivery Device O2 Liters/Min FiO2 Sodium 146 H Potassium 3.1 L Chloride 117 H Carbon Dioxide 22 Anion Gap 7 BUN 76 H D Creatinine 1.49 H Estim Creat Clear Calc 56 Estimated GFR 47 L Glucose 140 H POC Capillary Glucose 123 H 130 H Calcium 8.1 L Magnesium 2.5 H Total Bilirubin 0.2 AST 20 ALT 78 H Alkaline Phosphatase 43 Total Protein 4.4 L Albumin 2.4 L Triglycerides 121 Blood Type Antibody Screen Crossmatch 01/18/25 05:22 WBC RBC Hgb Hct MCV MCH MCHC RDW Plt Count MPV Immature Gran % (Auto) Neut % (Auto) Lymph % (Auto) [place] % (Auto) Eos % (Auto) Baso % (Auto) Lymph # (Auto) [place] # (Auto) Eos # (Auto) Baso # (Auto) Abs Immat Gran (auto) Absolute Neuts (auto) Absolute Nucleated RBC Nucleated RBC % Puncture Site Artline ABG pH 7.337 L ABG pCO2 37.0 ABG pO2 106.5 H ABG PO2/FiO2 Ratio 2.66 ABG HCO3 19.4 L ABG O2 Saturation 97.6 ABG O2 Content 19.9 ABG Base Excess -5.7 A-a Gradient 136.2 Oxyhemoglobin 96.6 Carboxyhemoglobin 1.0 Methemoglobin 0.3 Reduced Hemoglobin 2.1 Total Hemoglobin 14.6 O2 Delivery Device Ventilator O2 Liters/Min Not Reportable FiO2 40 Sodium Potassium Chloride Carbon Dioxide Anion Gap BUN Creatinine Estim Creat Clear Calc Estimated GFR Glucose POC Capillary Glucose Calcium Magnesium Total Bilirubin AST ALT Alkaline Phosphatase Total Protein Albumin Triglycerides Blood Type Antibody Screen Crossmatch Quality VTE Prophylaxis VTE prophylaxis: mechanical ordered
[2025-01-18] MEDS: POTASSIUM CHLORIDE INJ 40 MEQ in DEXTROSE 5% IN WATER 500 ML 130 MEQ IVPB (08:27)
[2025-01-18] MEDS: POTASSIUM BICARBONATE 25 MEQ TABEF 50 MEQ FEED TUBE (08:29)
[2025-01-18] MEDS: NOREPINEPHRINE 8 MG/D5W 250 ML 8 MG/250 ML BAG 9.38 MG IV CONT (09:00)
[2025-01-18] MEDS: dexmedeTOMIDine 400 MCG/100 ML 400 MCG/100 ML BAG 22.12 MCG IV CONT (10:00)
[2025-01-18] MEDS: PROPOFOL IV EMULSION 100 ML 19.48 MG IV CONT ×3 (10:00→20:18)
[2025-01-18] MEDS: MIDAZOLAM HCL (*CRX) 2 MG/2 ML VIAL 4 MG IV PUSH (10:16)
--- NOTE | 2025-01-18 10:33 | PCNFU ---
Nutrition Follow-Up Complete: Suboptimal Energy Intake as related to mechanical ventilation as evidenced by NPO. Meet estimated nutritional needs - Not progressing, TF on hold today. Goal: Pt current nutrition is Vital 1.2 @ 20 ml/h -on hold for EGD.. Nutrition recommendation: Restart tube feeds at 20 ml/h when medically able. Last recorded weight is 109.8 kg. Bowel Motility: Liquids stool per FMS, +1 BM today Labs Reviewed: Hgb 8.9, Hct 22.6, Alb 2.4, Na 146, K+ 3.1, BUN 76, Cre 1.49, Glu 140, Mag 2.5 Meds Noted: Precedex, levophed, propofol @ 19.48 ml/h=514 kcal/d. Skin: WNL Additional Notes: Per flowsheet, possible SBO on KUB. Pt NPO for EGD today. When able to restart tube feeds, recommend continuing @ 20 ml/h with goal rate 70 ml/h, advance per MD. Still on high rate of propofol so not able to advance to goal until propofol titrates down. Continue with care plan. Will monitor weight, labs, skin, diet orders, meds every Tuesday and Tuesday.
--- NOTE | 2025-01-18 11:35 | P.PNNP_ITS ---
Progress Note: A&P Assessment and Plan (1) Acute kidney injury: Code(s): N17.9 - Acute kidney failure, unspecified Status: Acute Assessment and Plan: * slow improvement noted * as noted on admission * normal creatinine on hospital discharge in June 2024 * suspect ATN with multifactorial etiology: * infection/sepsis * hemodynamic instability/shock * prerenal factors * ARB + diuretic use prior to admission * polysubstance abuse * other (?) * evaluation to date noted: * urine electrolytes pre-renal * CT of abdomen with hypodense right renal masses * renal u/s with no hydronephrosis or renal calculi; indeterminate focus within the interpolar region of the right kidney * urine eosinophils negative * UA without evidence of infection * CPK normal * follow trend of repeat labs and UOP (2) Septic shock: Code(s): A41.9 - Sepsis, unspecified organism; R65.21 - Severe sepsis with septic shock Status: Acute Assessment and Plan: * as noted on presentation with hypotension, acute respiratory failure, lactic acidosis, tachycardia, and DERECK * presumably secondary to pneumonia * s/p 2 L IV fluid bolus and on maintenance IV fluid * lactic acid has normalized * off vasopressor support at this time * culture data noted: * blood culture negative * urine culture pending * sputum culture with Pseudomonas * on antibiotics * continue current therapy (3) Acute hypoxic respiratory failure: Code(s): J96.01 - Acute respiratory failure with hypoxia Status: Acute Assessment and Plan: * as noted on presentation to the ER * intubated in ER on admission (due to hypoxia and agonal breathing) * complicated by mucus plugging of right main stem bronchus requiring bronchoscopy with suctioning of secretions * CT imaging noted * no evidence of pulmonary embolism, extensive right upper lobe and lower lobe airspace disease consistent with pneumonia; ilateral pleural effusion, right greater than left * Echo noted: * normal left ventricular size with overall good systolic function, paradoxical septal motion consistent with bundle branch block * EF 55-60% * right ventricular enlargement with systolic dysfunction * mild tricuspid regurgitation, estimated RV systolic pressure 51 mmHg * sclerotic aortic valve which exhibits preserved leaflet excursion * on ventilator support * chest physiotherapy * on nebulizer therapy, mucomyst, and pulmozyme * further complicated by known history of COPD (4) Pneumonia: Qualifiers: Laterality: right Lung location: unspecified part of lung Pneumonia type: due to unspecified organism Qualified Code(s): J18.9 - Pneumonia, unspecified organism Code(s): J18.9 - Pneumonia, unspecified organism Status: Acute Assessment and Plan: * as suggested by imaging to date * COVID, RSV and influenza testing negative * Pseudomonas noted in sputum culture * continue antibiotics * follow respiratory status (5) GIB (gastrointestinal bleeding): Code(s): K92.2 - Gastrointestinal hemorrhage, unspecified Status: Acute Assessment and Plan: * noted by dropping H/H first noted on 01/15 * dark stools and blood tinged OG tube output as well * heparin discontinued * s/p EGD (on 01/16) with findings/interventions noted: * moderate gastritis with a few crater ulcers noted * largest ulcer with signs of recent bleeding and was treated with gold probe * another ulcer was oozing blood and had attached clot which was subsequently removed with site of active bleeding noted and treated with cauterization and injection of epinephrine * noted plans for repeat EGD today (01/18) * PRBC transfusion per protocol * total of 6 units of PRBC given to date * on IV PPI * GI following (6) Anemia: Code(s): D64.9 - Anemia, unspecified Status: Acute Assessment and Plan: * complicated by #5 * partly due to DERECK/ARF along with acute illness * follow trend of H/H (7) CHF (congestive heart failure): Qualifiers: Heart failure chronicity: chronic Heart failure type: unspecified Qualified Code(s): I50.9 - Heart failure, unspecified Code(s): I50.9 - Heart failure, unspecified Status: Acute Assessment and Plan: * known history * Echo noted (see #3) * evidence of fluid overload by recent imaging * diuresis PRN (8) Acute exacerbation of chronic obstructive pulmonary disease: Code(s): J44.1 - Chronic obstructive pulmonary disease with (acute) exacerbation Status: Acute Assessment and Plan: * known history of is COPD with emphysema seen on CT scan of the chest * likely precipitated by pneumonia * on bronchodilator therapy (9) Atrial fibrillation: Qualifiers: Atrial fibrillation type: unspecified Qualified Code(s): I48.91 - Unspecified atrial fibrillation Code(s): I48.91 - Unspecified atrial fibrillation Status: Acute Assessment and Plan: * rate control strategy * was on heparin gtt for anticoagulation * off due to drop in H/H and #5 * on amiodarone gtt (10) Transaminitis: Code(s): R74.01 - Elevation of levels of liver transaminase levels Status: Acute Assessment and Plan: * significantly elevated LFTs on admission * due to hypotension/shock and hypotension on presentation (?) * RUQ ultrasound shows hepatomegaly with additional findings of portal hypertension * hepatitis panel was negative * follow trend Will continue to follow. Subjective Date/time seen: 01/18/25 11:35 Interval history: Follow-up for acute kidney injury/acute renal failure. Remains intubated/sedated and on mechanical ventilation; issues with bradycardia necessitating discontinuation of amiodarone gtt; able to be weaned of vasopressor therapy with relative stability in hemodynamics/blood pressure; noted to still have black tarry stools via FMS and H/H continues to fluctuate -- noted plans for repeat EGD today. Exam Narrative: General: ill appearing male intubated/sedated and on mechanical ventilation Heart: normal S1 and S2; no rub Lungs: coarse breath sounds Abdomen: soft, nontender, nondistended, decreased bowel sounds Extremities: no cyanosis or clubbingg; no edema Skin: warm and intact Objective Data Vital Signs Vital Signs: Vital Signs Temp Pulse Resp BP Pulse Ox O2 Del Method FiO2 01/18/25 11:23 96.7 F L 60 22 H 139/76 95 01/18/25 10:30 58 L 97 Mechanical Ventilation 01/18/25 10:23 97.1 F L 78 24 H 121/67 94 01/18/25 10:00 84 01/18/25 10:00 97.1 F L 89 23 H 135/72 94 01/18/25 10:00 106 H 25 H 01/18/25 09:23 97.1 F L 80 11 L 129/71 96 01/18/25 09:00 72 22 H 01/18/25 09:00 69 86/55 L 01/18/25 08:49 56 L 22 H 01/18/25 08:44 58 L 22 H 01/18/25 08:39 56 L 22 H 01/18/25 08:23 97.3 F L 54 L 23 H 121/67 99 01/18/25 08:06 97.3 F L 64 26 H 118/66 98 01/18/25 08:00 65 01/18/25 08:00 97.1 F L 61 22 H 109/58 L 95 01/18/25 08:00 40 01/18/25 08:00 97 Mechanical Ventilation 40 01/18/25 08:00 59 L 22 H 01/18/25 08:00 59 L 22 H 01/18/25 07:40 54 L 97 Mechanical Ventilation 01/18/25 06:07 61 109/58 L 01/18/25 06:00 61 22 H 01/18/25 06:00 61 22 H 01/18/25 06:00 97.1 F L 61 22 H 109/58 L 95 01/18/25 06:00 61 01/18/25 05:30 56 L 94 Mechanical Ventilation 01/18/25 05:14 36 L 22 H 01/18/25 05:14 36 L 102/49 L 01/18/25 05:00 42 L 22 H 01/18/25 04:10 53 L 22 H 01/18/25 04:00 56 L 01/18/25 04:00 97.7 F 56 L 22 H 102/48 L 95 01/18/25 04:00 40 01/18/25 04:00 56 L 22 H 95 Mechanical Ventilation 40 01/18/25 04:00 56 L 102/48 L 01/18/25 04:00 56 L 102/48 L 01/18/25 04:00 56 L 22 H 01/18/25 04:00 56 L 102/48 L 01/18/25 04:00 56 L 22 H 01/18/25 03:00 55 L 112/54 L 01/18/25 02:30 55 L 95 Mechanical Ventilation 01/18/25 02:13 59 L 22 H 01/18/25 02:13 59 L 22 H 01/18/25 02:08 54 L 124/60 01/18/25 02:00 53 L 125/62 01/18/25 02:00 53 L 125/62 01/18/25 02:00 53 L 125/62 01/18/25 02:00 53 L 22 H 01/18/25 02:00 53 L 22 H 01/18/25 02:00 97.8 F 53 L 22 H 125/62 95 01/18/25 02:00 53 L 01/18/25 00:00 51 L 22 H 01/18/25 00:00 51 L 22 H 01/18/25 00:00 52 L 121/58 L 01/18/25 00:00 52 L 121/58 L 01/18/25 00:00 52 L 121/58 L 01/18/25 00:00 52 L 22 H 01/18/25 00:00 98.2 F 52 L 22 H 121/58 L 95 01/18/25 00:00 40 01/18/25 00:00 52 L 01/18/25 00:00 52 L 22 H 95 Mechanical Ventilation 40 01/17/25 23:30 54 L 95 Mechanical Ventilation 01/17/25 22:00 98.4 F 55 L 22 H 107/51 L 95 01/17/25 22:00 55 L 01/17/25 22:00 55 L 107/51 L 01/17/25 22:00 55 L 107/51 L 01/17/25 22:00 55 L 107/51 L 01/17/25 22:00 55 L 22 H 01/17/25 22:00 55 L 22 H 01/17/25 21:45 63 124/61 01/17/25 21:00 69 22 H 01/17/25 21:00 69 22 H 01/17/25 20:55 64 94 Mechanical Ventilation 01/17/25 20:00 68 127/60 01/17/25 20:00 68 127/60 01/17/25 20:00 68 127/60 01/17/25 20:00 68 22 H 01/17/25 20:00 68 22 H 01/17/25 20:00 63 01/17/25 20:00 98.7 F 63 22 H 127/60 95 01/17/25 20:00 40 01/17/25 20:00 63 22 H 95 Mechanical Ventilation 40 01/17/25 18:31 67 24 H 01/17/25 18:31 67 24 H 01/17/25 18:00 100 F H 64 28 H 127/60 92 01/17/25 18:00 64 01/17/25 18:00 71 124/59 L 01/17/25 18:00 64 114/66 01/17/25 18:00 64 114/66 01/17/25 18:00 67 24 H 01/17/25 17:21 66 24 H 01/17/25 17:21 66 24 H 01/17/25 17:20 66 121/57 L 01/17/25 16:00 67 123/55 L 01/17/25 16:00 64 123/55 L 01/17/25 16:00 99.7 F H 64 25 H 123/55 L 95 01/17/25 16:00 40 01/17/25 16:00 64 01/17/25 16:00 64 24 H 96 Mechanical Ventilation 40 01/17/25 16:00 73 96 Mechanical Ventilation Intake/Output Intake/Output: Intake & Output 01/15/25 01/16/25 01/17/25 01/18/25 23:59 23:59 23:59 23:59 Intake Total 3076.3 2799.3 2155.6 2055.7 Output Total 2825 2125 2100 1300 Balance 251.3 674.3 55.6 755.7 Meds/Results Medications: Active Medications Generic Name Dose Route Start Last Admin Trade Name Freq PRN Reason Stop Dose Admin Acetaminophen 650 mg 01/09/25 14:52 Acetaminophen 650 Mg Suppository RECTAL Q6H PRN Mild Pain (1-3) or Fever Acetaminophen 650 mg 01/17/25 10:46 01/17/25 11:10 Acetaminophen Elixir 325 Mg/10.15 Ml Udc PO 650 mg Q4H PRN Administration Mild Pain (1-3) or Fever Albuterol/Ipratropium 3 ml 01/14/25 07:39 Ipratropium 0.5 Mg/Albuterol Sulfate 2.5 Mg Ampul.Neb 3 Ml INHALATION Q6HRT PRN Wheezing Dextrose 12.5 gm 01/10/25 00:27 Dextrose 50% 25 Gm/50 Ml Syringe IV PUSH PRN PRN Hypoglycemia Protocol Glucagon 1 mg 01/10/25 00:27 Glucagon For Inj 1 Mg Vial IM PRN PRN Hypoglycemia Protocol Glucose 15 gm 01/10/25 00:27 Glucose Oral Gel 15 Gm Of Glucse In 37.5 Gm Tube PO PRN PRN Hypoglycemia Protocol Hydrocortisone Sodium Succinate 100 mg 01/19/25 09:00 Hydrocortisone Sodium Succinate 100 Mg/2 Ml Vial IV PUSH QAM JENNY Cefepime HCl 1 gm/ Sodium 50 mls @ 100 mls/hr 01/10/25 06:00 01/18/25 05:34 Chloride IVPB 01/19/25 06:29 Infused Q12H JENNY Infusion Dextrose 1,000 mls @ 100 mls/hr 01/10/25 00:27 Dextrose 5% 1,000 Ml IVPB PRN PRN Hypoglycemia Protocol Propofol 100 mls @ 19.476 mls/hr 01/12/25 10:55 01/18/25 14:00 Diprivan IV CONT 30 mcg/kg/min .Q5H9M JENNY 19.48 mls/hr Protocol Titration 30 MCG/KG/MIN Dexmedetomidine HCl 400 mcg in 100 mls @ 16.59 mls/hr 01/14/25 07:45 01/18/25 14:43 Precedex 400 Mcg/100 Ml IV CONT 0.6 mcg/kg/hr .Q6H2M JENNY 16.59 mls/hr Protocol Titration 0.6 MCG/KG/HR Norepinephrine Bitartrate 8 mg in 250 mls @ 3.75 mls/hr 01/18/25 08:55 01/18/25 14:41 Levophed 8 Mg/D5w 250 Ml IV CONT 2 mcg/min .Q24H JENNY 3.75 mls/hr Protocol Titration 2 MCG/MIN Insulin Aspart 3 - 6 units 01/10/25 06:00 01/18/25 12:39 Insulin Aspart (*Bkc) 100 Units/Ml SUB-Q Not Given Q6HR [facility] Protocol Multi-Ingred Cream/Lotion/Oil/Oint 1 applic 01/12/25 21:00 01/18/25 08:12 Mineral Oil/White Petrolatum Ointment EACH EYE 1 applic Q12HR JENNY Administration Pantoprazole Sodium 40 mg 01/09/25 21:00 01/18/25 08:12 Pantoprazole Sodium Iv 40 Mg Vial IV PUSH 40 mg Q12HR JENNY Administration Polyethylene Glycol 17 gm 01/12/25 10:42 01/14/25 09:00 Polyethylene Glycol 3350 17 Gm Powd.Pack PO 17 gm QAM PRN Administration Constipation Fluticasone/Salmeterol 2 puff 01/09/25 20:00 01/14/25 20:56 Fluticasone/Salmeterol 115-21 Mcg Inhaler 1 Puff INHALATION Not Given On Hold: 01/14/25 08:00 Q12HRT JENNY Senna/Docusate Sodium 1 tab 01/12/25 21:00 01/17/25 19:47 Senna/Docusate Sodium Tablet PO Not Given HS JENNY Sodium Chloride 20 ml 01/09/25 17:08 Central Line Flush IV PUSH PRN PRN after blood draws Sodium Chloride 20 ml 01/09/25 17:34 01/11/25 05:29 Central Line Flush IV PUSH 20 ml PRN PRN Administration after blood draws Radiology Results: ITS Impressions Chest/Abdomen/Pelvis CTA 01/09/25 13:59 IMPRESSION: 1. Extensive airspace disease of the right upper and lower lobe, consistent with pneumonia. 2: Bilateral pleural effusions, right greater than left. 3: Hypodense right renal masses. Cannot exclude renal cell carcinoma. Consider correlation with MRI abdomen with contrast. 4: Small pericardial effusion. Head CT 01/09/25 14:00 IMPRESSION: 1. No acute intracranial hemorrhage. No mass effect. 2. Probable chronic ischemic white matter change. Renal Ultrasound 01/09/25 19:35 IMPRESSION: No hydronephrosis or renal calculi. Indeterminate focus within the interpolar region of the right kidney, for which contrast enhanced CT or MRI (with renal mass protocol) is suggested for further evaluation. Abdomen Ultrasound 01/09/25 19:44 IMPRESSION: Limited evaluation of the pancreas secondary to overlying bowel gas Hepatomegaly with additional findings of portal hypertension, as detailed above. Chest X-Ray 01/18/25 05:48 Impression: Normal right pleural effusion and probable right basilar pulmonary edema/atelectasis. Support tubes, as above. Distal tip of NG tube is not well delineated, and the side-port may be in the distal esophagus. Consider abdominal radiograph for advancement of NG tube. Abdomen X-Ray 01/18/25 06:34 Impression: NG tube in satisfactory position. Suspected small bowel obstruction. Chest/Abdomen/Pelvis CT 01/18/25 09:56 IMPRESSION: 1. There are a few distended small bowel loops which may be due to an ileus or a developing small bowel obstruction. Follow-up is recommended. 2. Fernández catheter in the mildly distended bladder. Small amount of new nondependent air in the bladder possibly due to recent instrumentation or cystitis 3. Otherwise, the appearance of the abdomen and pelvis is similar to the CT study from 01/15/2025. 4. Grossly stable appearance of the chest as compared to the study from 01/15/2025 Labs Labs: Laboratory Tests 01/18/25 04:40 WBC 9.9 Hgb 6.9 L* Hct 22.6 L Plt Count 102 L Sodium 146 H Potassium 3.1 L Chloride 117 H Carbon Dioxide 22 Anion Gap 7 BUN 76 H D Creatinine 1.49 H Estim Creat Clear Calc 56 Estimated GFR 47 L Glucose 140 H Calcium 8.1 L Magnesium 2.5 H Total Bilirubin 0.2 AST 20 ALT 78 H Alkaline Phosphatase 43 Total Protein 4.4 L Albumin 2.4 L Triglycerides 121 Microbiology 01/11/25 11:27 Blood Blood Culture - Final 01/11/25 11:28 Blood Blood Culture - Final
[2025-01-18] MEDS: EPINEPHrine INJ 1 MG/10 ML SYRINGE 0.3 MG XX (11:56)
[2025-01-18 14:07] LABS: Hematocrit 27.6 % (42.0-52.0); Hemoglobin 8.8 g/dL (14.0-18.0); Mean Corpuscular HGB Conc 31.9 g/dl (32-36); Mean Corpuscular Hemoglobin 28.9 pg (26-34); Mean Corpuscular Volume 90.8 fl (80-100); Platelet Count Result 137 k/mm3 (150-375); Red Blood Count 3.04 M/mm3 (4.6-6.20); White Blood Count 13.9 K/mm3 (4.5-10.0)
[2025-01-18] MEDS: dexmedeTOMIDine 400 MCG/100 ML 400 MCG/100 ML BAG 19.36 MCG IV CONT (14:12)
[2025-01-18 19:10] LABS: Arterial Blood Gas Tidal Volume 480 ml; Arterial Blood Gas Ventilator rate 22 /MIN
[2025-01-18] MEDS: dexmedeTOMIDine 400 MCG/100 ML 400 MCG/100 ML BAG 8.3 MCG IV CONT (20:19)
[2025-01-19] VITALS (19 sets, daily range): BP systolic 81–129; BP diastolic 51–69; PULSE 58–123; RESP 22–27; TEMP 36.6–37.5; O2SAT 91–98
[2025-01-19] MEDS: DEXTROSE 50% 25 GM/50 ML SYRINGE IV PUSH (00:12)
[2025-01-19] MEDS: PROPOFOL IV EMULSION 100 ML 19.48 MG IV CONT ×2 (00:19→05:13)
[2025-01-19 04:10] LABS: Hematocrit 27.1 % (42.0-52.0); Hemoglobin 8.4 g/dL (14.0-18.0); Mean Corpuscular HGB Conc 31.0 g/dl (32-36); Mean Corpuscular Hemoglobin 29.0 pg (26-34); Mean Corpuscular Volume 93.4 fl (80-100); Platelet Count Result 119 k/mm3 (150-375); Red Blood Count 2.90 M/mm3 (4.6-6.20); White Blood Count 9.6 K/mm3 (4.5-10.0)
[2025-01-19 04:21] LABS: Alanine Aminotransferase 72 U/L (6-50); Albumin Level 2.5 g/dL (3.5-5.1); Alkaline Phosphatase 51 U/L (38-126); Anion Gap 5 mmol/L (4-12); Aspartate Amino Transferase 23 U/L (17-59); Bilirubin,Total 0.3 mg/dL (0.2-1.3); Blood Urea Nitrogen 71 mg/dL (9-20); Calcium 8.4 mg/dL (8.4-10.2); Carbon Dioxide 24 mmol/L (22-30); Chloride 116 mmol/L (98-107); Estimated CRCL calculation 56 ml/min; Estimated Glomerular Filt Rate 46; Glucose 98 mg/dL (65-110); Magnesium 2.7 mg/dL (1.6-2.3); Potassium 3.4 mmol/L (3.4-5.0); Sodium 145 mmol/L (137-145); Total Protein 4.7 g/dL (6.3-8.2)
[2025-01-19 05:02] LABS: Alveolar/Arterial O2 Gradient 130.8 mmHg; Carboxyhemoglobin 0.6 % THb (0-2.0); Fractional Inspired Oxygen 35 %; HCO3 ABG 19.1 mEq/l (22.0-26.0); Methemoglobin ABG 0.3 %THb (0-1.5); Oxygen Content ABG 11.6 %vol (16.0-22.0); Oxygen Saturation ABG 93.5 % (95.0-100.0); PCO2 ABG 39.0 mmHg (35.0-45.0); PO2 ABG 73.4 mmHg (80.0-100.0); PO2 FiO2 Ratio Arterial Blood 2.10 %; Reduced Hemoglobin 6.9 %THb (0-5.0)
[2025-01-19 05:04] LABS: Modified Allen's Test Pass; Site Drawn ARTLINE
[2025-01-19 05:05] LABS: Arterial Blood Gas Tidal Volume 480 ml; Arterial Blood Gas Ventilator rate 22 /MIN
[2025-01-19] MEDS: CEFEPIME 1 GM in SODIUM CHLORIDE 0.9% IV 50 ML 100 ML IVPB (05:18)
[2025-01-19] MEDS: dexmedeTOMIDine 400 MCG/100 ML 400 MCG/100 ML BAG 11.06 MCG IV CONT (06:25)
--- NOTE | 2025-01-19 07:45 | ECG_ITS ---
Test Date: 2025-01-19 07:53:57 Measurements Intervals Gomer Rate: 113 P: 26 WV: 215 QRS: 73 QRSD: 100 T: -79 QT: 339 QTc: 466 Interpretive Statements ATRIAL FLUTTER/ATCHYCARDIA WITH RAPID VENTRICULAR RESPONSE VENTRICULAR COUPLET AND VENTRICULAR PREMATURE COMPLEXES ST-T WAVE ABNORMALITY IN INFERIOR LEADS- CONSIDER ISCHEMIA ABNORMAL ECG Compared to ECG 01/09/2025 13:11:00 SINUS RHYTHM NO LONGER PRESENT POSSIBLE ISCHEMIA NOW PRESENT Electronically Signed On 01-19-2025 10:31:44 CDT by Blake Mathis D.O.
--- NOTE | 2025-01-19 08:37 | WPDINTPN ---
Progress Note: A&P Assessment and Plan (1) Acute hypoxic respiratory failure: Code(s): J96.01 - Acute respiratory failure with hypoxia Status: Acute Assessment and Plan: 01/09: Patient presented the ED via EMS after the called 911 as patient has been laying in bed with agonal breathing for the last 2 days, upon arrival of the EMS patient was unresponsive, with agonal breaths. Bag-mask ventilation was started patient was hypotensive, in the ER patient had a GCS of 3 and was emergently intubated. Post intubation patient is on O2 sats were in the upper 60s to 70s. Patient was in a PEEP of 15 and 100% FiO2 -01/09: I was asked to come down to the ER to evaluate the patient, patient was given rocuronium, and revealed emergently to the ICU, -01/09: emergent bronch was performed in the ICU with significant thick mucus plugs in the right mainstem, right upper lobe and right lower lobe. Suction and cleared most of the secretions with the bronchoscope.O2 sats improved to 95-99% -chest x-ray and ABGs reviewed -ventilator adjusted peep is at 8, FiO2 at 30% -chest physiotherapy per RT -status post Pulmozyme and Mucomyst treatment, secretions much improved -continue DuoNebs p.r.n. -continue Symbicort inhaler -status post course of Solu-Medrol -currently on propofol and Precedex infusion. Will wean down propofol 01/16 weaning trial was performed and patient did adequate with adequate RSBI in ABG but patient is due for a EGD this afternoon hence will leave him on the ventilator. Also with upper GI bleed will not be able to use BiPAP once extubated. IV Lasix given 01/17 continue mechanical ventilation. We will delay weaning until the GI bleed is resolved and hemoglobin is stabilized. Even when patient gets extubated I anticipate patient will need BiPAP which will not be possible with GI bleed. ABG chest x-ray reviewed 01/18 patient going back for EGD today. Weaning will depend on EGD results 01/19 sedation holiday and weaning trial today 01/09: CT PE protocol, abdomen and pelvis with no evidence of pulmonary embolism, extensive right upper lobe and lower lobe airspace disease consistent with pneumonia. Bilateral pleural effusion, right greater than left. Hyperdense right renal masses, cannot exclude renal cell carcinoma, consider correlation with MRI abdomen with contrast. Small pericardial (2) Bleeding: Code(s): R58 - Hemorrhage, not elsewhere classified Status: Acute Assessment and Plan: 01/15 Increase vasopressor requirement over last 24 hours. Hemoglobin this morning showed dropped to 7.1. Patient is on anticoagulation. I suspect petition bleeding although there is no obvious clinical sign. Patient has not any bowel movement. I aspirated tube feed and it does look dark but not conclusive of bleeding. Tube feeds were held, OG tube to L IS, and patient was made NPO. Heparin was discontinued and CBC was monitored. Patient was transfuse 2 units of PRBC over last [address] scan of abdomen pelvis did not show any hematoma or retroperitoneal hemorrhage. 01/16 patient had dark bowel movement today and also OG tube shows blood-tinged output consistent with upper GI bleed. Patient underwent EGD which showed gastritis active bleed. Both ulcers were treated with epinephrine injection Hemoglobin is 6.9. Will transfuse 1 more unit of PRBC. Discussed with GI regarding repeat EGD and patient will be going for repeat EGD today Anticoagulation has been discontinued. Continue to monitor hemoglobin which has been stable for now Continue PPI IV q.12 hours GI following (3) Septic shock: Code(s): A41.9 - Sepsis, unspecified organism; R65.21 - Severe sepsis with septic shock Status: Acute Assessment and Plan: Patient with hypotension, acute respiratory failure, lactic acidosis, tachycardia -UA was negative -patient was treated with IV fluids and started on vasopressors. Patient eventually came off of vasopressors but Levophed was resumed on 01/14 -now off pressors. Will wean hydrocortisone -will maintain MAP > 65 mm or SBP > 100 mmHg at all times for adequate end organ perfusion Completed course of cefepime and doxycycline, Flagyl discontinued on 01/12 -01/09: Blood culture -Gram-positive cocci which was Staph epidermis -01/09: Sputum culture -pansensitive Pseudomonas -01/09: Urine Legionella pending -01/11: Repeat blood cultures -preliminary report is negative x2 -01/09: Urine Legionella is pending (4) Pneumonia: Qualifiers: Laterality: right Lung location: unspecified part of lung Pneumonia type: due to unspecified organism Qualified Code(s): J18.9 - Pneumonia, unspecified organism Code(s): J18.9 - Pneumonia, unspecified organism Status: Acute Assessment and Plan: Likely pneumonia on of the right upper and lower lobe -COVID, RSV and influenza were NEGATIVE -continue antibiotics as above -currently on mechanical ventilation (5) Acute exacerbation of chronic obstructive pulmonary disease: Code(s): J44.1 - Chronic obstructive pulmonary disease with (acute) exacerbation Status: Acute Assessment and Plan: History of is COPD with emphysema seen on CT scan of the chest -continue bronchodilators as above (6) Atrial fibrillation: Qualifiers: Atrial fibrillation type: unspecified Qualified Code(s): I48.91 - Unspecified atrial fibrillation Code(s): I48.91 - Unspecified atrial fibrillation Status: Acute Assessment and Plan: History of atrial flutter/fibrillation patient is on apixaban at home, hold apixaban for now -currently in AFib, RVR with heart rates in the 70s -01/18 overnight patient became bradycardic and amiodarone was discontinued - 01/15 discontinued heparin infusion due to upper GI bleed 01/19 converted overnight to sinus rhythm. Currently in sinus tachycardia. Not on anticoagulation or antiplatelet agent due to bleeding duodenal ulcer (7) Polysubstance use disorder: Code(s): F19.90 - Other psychoactive substance use, unspecified, uncomplicated Status: Acute Assessment and Plan: Urine tox screen was positive for cannabis and cocaine Will correctional counselor patient once he is extubated (8) Transaminitis: Code(s): R74.01 - Elevation of levels of liver transaminase levels Status: Acute Assessment and Plan: Significantly elevated LFTs, -RUQ ultrasound shows hepatomegaly with additional findings of portal hypertension -hepatitis panel was negative -could also be related to hypoxia, hypotension/shock -continue to monitor liver function tests (9) Elevated troponin: Code(s): R79.89 - Other specified abnormal findings of blood chemistry Status: Acute Assessment and Plan: Elevated troponin 0.215 -could be related to type 2 infarct, is EKG did not show any ST elevation -troponins were flat, 01/10/2025: Echocardiogram Summary 1. Complete two-dimensional, color flow and Doppler transthoracic echocardiogram is performed. 2. Somewhat challenging exam with patient on ventilator support. 3. Normal left ventricular size with overall good systolic function, paradoxical septal motion consistent with bundle branch block. EF 55-60% 4. Right ventricular enlargement with systolic dysfunction. 5. Mild tricuspid regurgitation, estimated RV systolic pressure 51 mmHg. 6. Sclerotic aortic valve which exhibits preserved leaflet excursion. (10) Current smoker: Code(s): F17.200 - Nicotine dependence, unspecified, uncomplicated Status: Acute Assessment and Plan: Will correctional counselor patient on tobacco cessation once he is extubated (11) CHF (congestive heart failure): Qualifiers: Heart failure type: unspecified Heart failure chronicity: chronic Qualified Code(s): I50.9 - Heart failure, unspecified Code(s): I50.9 - Heart failure, unspecified Status: Acute Assessment and Plan: Patient has a history of CHF, likely HFpEF -proBNP > 14009 Echocardiogram as above, EF of 55%, RVSP 51 mmHg, moderate pulmonary hypertension likely related to COPD -chest x-ray does not show pulmonary edema -Lasix IV given 01/16 (12) Electrolyte imbalance: Code(s): E87.8 - Other disorders of electrolyte and fluid balance, not elsewhere classified Status: Acute Assessment and Plan: Potassium replacement ordered (13) Acute renal failure: Code(s): N17.9 - Acute kidney failure, unspecified Status: Acute Assessment and Plan: 01/09/2025: Patient presented with creatinine of 3.81 (baseline 1.10-1.23). Multifactorial likely related to infection, sepsis, shock, medications, polysubstance abuse -Adequately fluid-resuscitated -Urine lytes showed prerenal picture -renal ultrasound with no hydronephrosis or calculi, intermittent focus within the interpolar region of the right kidney for which contrast enhanced CT or MRI is suggested -urine eosinophils negative -CPK levels are normal -creatinine improved to 1.44 Continue to monitor renal function, electrolytes and urine output Plan DVT prophylaxis: Patient was on Heparin infusion which is now off due to GI bleed. SCDs Stress ulcer prophylaxis: Protonix Nutrition: Tube feeds Code Status: DNR Critical Care Time Spent: 30 minutes Due to a high probability of clinically significant, life threatening deterioration, the patient required my highest level of preparedness to intervene emergently and I personally spent this critical care time directly and personally managing the patient. This critical care time included obtaining a history; examining the patient; pulse oximetry; ordering and review of studies; arranging urgent treatment with development of a management plan; evaluation of patient's response to treatment; frequent reassessment; and discussions with other providers. It was exclusive of separately billable procedures and treating other patients and teaching time. Please see Assessment and Plan section and the rest of the note for further information on patient assessment and treatment This dictation may have been done utilizing a voice recognition system. Attempts have been made to correct errors. However, there may be uncorrected grammatical, spelling, and recognitions errors present. Subjective Date/time seen: 01/19/25 Overnight events reviewed. Afebrile Continues to be on mechanical ventilation 35% FiO2 On low-dose Levophed Continues to be sedated with propofol and Precedex Converted to sinus rhythm yesterday evening. Currently in sinus tachycardia. Acceptable urine output Interval history: Reason for consult: Acute hypoxic respiratory failure, altered mental status, pneumonia, acute kidney injury, hyperkalemia, severe sepsis/shock, transaminitis 01/09: Bronchoscopy 01/16 EGD 01/18 repeat EGD which showed persistent duodenal ulcer without active bleeding which was cauterized Review of Systems Review of Systems: ROS unobtainable: Yes unobtainable due to endotracheal tube, unobtainable due to medical condition and unobtainable due to mental status Exam Narrative: General: Patient intubated and sedated, in no acute distress at this time HEENT:? Pupils equally reactive, sclera is clear, ETT in place Neck:? Supple Respiratory:? Coarse breath sounds bilaterally R > L, decreased breath sounds at right base, distant breath sounds Cardiac:? Irregularly irregular, tachycardia Abdomen:? Soft, nontender, nondistended, hypoactive but present bowel sounds , FMS in place with dark black stool but output has dropped Extremities:? Extremities are warm, palpable pedal pulse Neuro:? Patient intubated, sedated, he follows commands with all 4 extremities, PERRL Skin:? No skin lesions noted Psych:? Unable to assess at this time Objective Data Vital Signs Vital Signs: Vital Signs - 24 hr 01/18/25 08:39 01/18/25 08:44 01/18/25 08:49 Temperature Pulse Rate 56 L 58 L 56 L Respiratory Rate 22 H 22 H 22 H Blood Pressure Pulse Oximetry Oxygen Delivery Fraction of Inspired Oxygen 01/18/25 09:00 01/18/25 09:00 01/18/25 09:23 Temperature 36.2 C L Pulse Rate 69 72 80 Respiratory Rate 22 H 11 L Blood Pressure 86/55 L 129/71 Pulse Oximetry 96 Oxygen Delivery Fraction of Inspired Oxygen 01/18/25 10:00 01/18/25 10:00 01/18/25 10:00 Temperature Pulse Rate 106 H 93 93 Respiratory Rate 25 H 25 H 25 H Blood Pressure Pulse Oximetry Oxygen Delivery Fraction of Inspired Oxygen 01/18/25 10:00 01/18/25 10:00 01/18/25 10:00 Temperature Pulse Rate 78 78 84 Respiratory Rate 25 H 25 H Blood Pressure 129/71 Pulse Oximetry Oxygen Delivery Fraction of Inspired Oxygen 01/18/25 10:00 01/18/25 10:00 01/18/25 10:23 Temperature 36.2 C L 36.2 C L Pulse Rate 89 84 78 Respiratory Rate 23 H 24 H Blood Pressure 135/72 121/67 Pulse Oximetry 94 94 Oxygen Delivery Fraction of Inspired Oxygen 01/18/25 10:30 01/18/25 11:23 01/18/25 12:00 Temperature 35.9 C L Pulse Rate 58 L 60 87 Respiratory Rate 22 H Blood Pressure 139/76 129/70 Pulse Oximetry 97 95 Oxygen Delivery Mechanical Ventilation Fraction of Inspired Oxygen 01/18/25 12:00 01/18/25 12:00 01/18/25 12:00 Temperature 35.9 C L Pulse Rate 87 87 87 Respiratory Rate 22 H 22 H 22 H Blood Pressure 105/61 Pulse Oximetry 97 Oxygen Delivery Fraction of Inspired Oxygen 01/18/25 12:00 01/18/25 12:00 01/18/25 12:00 Temperature Pulse Rate 83 Respiratory Rate Blood Pressure Pulse Oximetry 99 Oxygen Delivery Mechanical Ventilation Fraction of Inspired Oxygen 40 40 01/18/25 13:30 01/18/25 13:45 01/18/25 13:50 Temperature Pulse Rate 54 L 60 54 L Respiratory Rate Blood Pressure 93/53 L 141/76 H Pulse Oximetry 96 Oxygen Delivery Mechanical Ventilation Fraction of Inspired Oxygen 01/18/25 14:00 01/18/25 14:00 01/18/25 14:00 Temperature Pulse Rate 59 L 57 L 57 L Respiratory Rate 22 H 22 H Blood Pressure 133/75 Pulse Oximetry Oxygen Delivery Fraction of Inspired Oxygen 01/18/25 14:00 01/18/25 14:00 01/18/25 14:12 Temperature 35.9 C L Pulse Rate 57 L 57 L 55 L Respiratory Rate 22 H 22 H Blood Pressure 138/75 Pulse Oximetry 97 Oxygen Delivery Fraction of Inspired Oxygen 01/18/25 14:12 01/18/25 14:15 01/18/25 14:29 Temperature Pulse Rate 55 L 61 58 L Respiratory Rate 22 H Blood Pressure 158/86 H 88/49 L Pulse Oximetry Oxygen Delivery Fraction of Inspired Oxygen 01/18/25 14:41 01/18/25 14:43 01/18/25 15:08 Temperature Pulse Rate 55 L 55 L 61 Respiratory Rate 22 H 22 H Blood Pressure 138/75 Pulse Oximetry Oxygen Delivery Fraction of Inspired Oxygen 01/18/25 15:33 01/18/25 15:45 01/18/25 16:00 Temperature Pulse Rate 61 54 L Respiratory Rate 22 H 22 H Blood Pressure Pulse Oximetry Oxygen Delivery Fraction of Inspired Oxygen 40 01/18/25 16:00 01/18/25 16:00 01/18/25 16:00 Temperature 35.9 C L Pulse Rate 57 L 57 L 57 L Respiratory Rate 22 H 22 H 22 H Blood Pressure 118/64 Pulse Oximetry 98 Oxygen Delivery Fraction of Inspired Oxygen 01/18/25 16:00 01/18/25 16:00 01/18/25 16:00 Temperature Pulse Rate 57 L 72 Respiratory Rate Blood Pressure 118/64 Pulse Oximetry 98 Oxygen Delivery Mechanical Ventilation Fraction of Inspired Oxygen 40 01/18/25 16:30 01/18/25 16:30 01/18/25 17:24 Temperature Pulse Rate 52 L 56 L 63 Respiratory Rate 22 H Blood Pressure 98/53 L Pulse Oximetry 97 Oxygen Delivery Mechanical Ventilation Fraction of Inspired Oxygen 40 01/18/25 17:45 01/18/25 18:00 01/18/25 18:00 Temperature Pulse Rate 44 L 58 L 58 L Respiratory Rate 22 H 22 H 22 H Blood Pressure Pulse Oximetry Oxygen Delivery Fraction of Inspired Oxygen 01/18/25 18:00 01/18/25 18:00 01/18/25 18:00 Temperature 36.0 C L Pulse Rate 58 L 58 L 58 L Respiratory Rate 22 H Blood Pressure 105/53 L 105/53 L Pulse Oximetry 96 Oxygen Delivery Fraction of Inspired Oxygen 01/18/25 20:00 01/18/25 20:00 01/18/25 20:00 Temperature Pulse Rate 58 L 58 L 58 L Respiratory Rate 22 H 22 H Blood Pressure 101/55 L Pulse Oximetry Oxygen Delivery Fraction of Inspired Oxygen 01/18/25 20:00 01/18/25 20:00 01/18/25 20:00 Temperature 36.2 C L Pulse Rate 80 Respiratory Rate 22 H Blood Pressure 105/55 L Pulse Oximetry 97 98 Oxygen Delivery Mechanical Ventilation Fraction of Inspired Oxygen 40 40 01/18/25 20:00 01/18/25 20:10 01/18/25 20:18 Temperature Pulse Rate 71 63 54 L Respiratory Rate 22 H Blood Pressure Pulse Oximetry 98 Oxygen Delivery Mechanical Ventilation Fraction of Inspired Oxygen 40 01/18/25 20:18 01/18/25 20:19 01/18/25 20:19 Temperature Pulse Rate 54 L 54 L 54 L Respiratory Rate 22 H 22 H 22 H Blood Pressure Pulse Oximetry Oxygen Delivery Fraction of Inspired Oxygen 01/18/25 22:00 01/18/25 22:00 01/18/25 22:00 Temperature 36.5 C Pulse Rate 85 83 81 Respiratory Rate 26 H Blood Pressure 99/55 L 102/56 L Pulse Oximetry 94 Oxygen Delivery Fraction of Inspired Oxygen 01/18/25 22:05 01/18/25 22:05 01/18/25 23:10 Temperature Pulse Rate 83 83 98 Respiratory Rate 22 H 22 H Blood Pressure Pulse Oximetry 95 Oxygen Delivery Mechanical Ventilation Fraction of Inspired Oxygen 40 01/19/25 00:00 01/19/25 00:00 01/19/25 00:00 Temperature Pulse Rate 92 92 92 Respiratory Rate 22 H 22 H Blood Pressure 109/51 L Pulse Oximetry Oxygen Delivery Fraction of Inspired Oxygen 01/19/25 00:00 01/19/25 00:00 01/19/25 00:00 Temperature 36.8 C Pulse Rate 88 87 Respiratory Rate 25 H Blood Pressure 109/51 L Pulse Oximetry 95 98 Oxygen Delivery Mechanical Ventilation Fraction of Inspired Oxygen 40 01/19/25 00:00 01/19/25 00:19 01/19/25 00:19 Temperature Pulse Rate 88 88 Respiratory Rate 22 H 22 H Blood Pressure Pulse Oximetry Oxygen Delivery Fraction of Inspired Oxygen 40 01/19/25 02:00 01/19/25 02:00 01/19/25 02:00 Temperature 37.0 C Pulse Rate 106 H 100 100 Respiratory Rate 25 H 22 H Blood Pressure 107/62 Pulse Oximetry 96 Oxygen Delivery Fraction of Inspired Oxygen 01/19/25 02:00 01/19/25 02:00 01/19/25 02:00 Temperature Pulse Rate 100 100 112 H Respiratory Rate 22 H Blood Pressure 102/59 L Pulse Oximetry 97 Oxygen Delivery Mechanical Ventilation Fraction of Inspired Oxygen 40 01/19/25 03:30 01/19/25 04:00 01/19/25 04:00 Temperature 36.6 C Pulse Rate 115 H 110 H Respiratory Rate 22 H 25 H Blood Pressure 102/58 L Pulse Oximetry 91 98 Oxygen Delivery Mechanical Ventilation Fraction of Inspired Oxygen 40 01/19/25 04:00 01/19/25 04:00 01/19/25 04:00 Temperature 37.1 C Pulse Rate 111 H 119 H Respiratory Rate 22 H Blood Pressure 101/59 L Pulse Oximetry 94 Oxygen Delivery Fraction of Inspired Oxygen 35 01/19/25 04:00 01/19/25 04:00 01/19/25 04:00 Temperature Pulse Rate 119 H 119 H 119 H Respiratory Rate 22 H 22 H Blood Pressure 101/59 L Pulse Oximetry Oxygen Delivery Fraction of Inspired Oxygen 01/19/25 05:00 01/19/25 05:13 01/19/25 05:13 Temperature Pulse Rate 117 H 108 H 108 H Respiratory Rate 23 H 23 H Blood Pressure Pulse Oximetry 93 Oxygen Delivery Mechanical Ventilation Fraction of Inspired Oxygen 35 01/19/25 06:00 01/19/25 06:00 01/19/25 06:00 Temperature 37.2 C Pulse Rate 109 H 109 H 109 H Respiratory Rate 24 H 24 H Blood Pressure 96/57 L Pulse Oximetry 93 Oxygen Delivery Fraction of Inspired Oxygen 01/19/25 06:00 01/19/25 06:00 01/19/25 06:00 Temperature 37.2 C Pulse Rate 109 H 109 H 117 H Respiratory Rate 24 H 27 H Blood Pressure 96/57 L 105/62 Pulse Oximetry 93 Oxygen Delivery Fraction of Inspired Oxygen 01/19/25 06:25 01/19/25 06:25 01/19/25 07:41 Temperature Pulse Rate 106 H 106 H 107 H Respiratory Rate 23 H 23 H Blood Pressure Pulse Oximetry 96 Oxygen Delivery Mechanical Ventilation Fraction of Inspired Oxygen 35 01/19/25 07:43 01/19/25 07:43 01/19/25 08:00 Temperature 37.3 C Pulse Rate 123 H 123 H 117 H Respiratory Rate 25 H 25 H 26 H Blood Pressure 113/65 Pulse Oximetry 95 Oxygen Delivery Fraction of Inspired Oxygen Intake/Output Intake/Output: Intake & Output 01/16/25 01/17/25 01/18/25 01/19/25 23:59 23:59 23:59 23:59 Intake Total 2799.3 2155.6 2493.7 621.3 Output Total 2125 2100 2600 900 Balance 674.3 55.6 -106.3 -278.7 Meds/Results Medications: Active Medications Generic Name Dose Route Start Last Admin Trade Name Freq PRN Reason Stop Dose Admin Acetaminophen 650 mg 01/09/25 14:52 Acetaminophen 650 Mg Suppository RECTAL Q6H PRN Mild Pain (1-3) or Fever Acetaminophen 650 mg 01/17/25 10:46 01/17/25 11:10 Acetaminophen Elixir 325 Mg/10.15 Ml Udc PO 650 mg Q4H PRN Administration Mild Pain (1-3) or Fever Albuterol/Ipratropium 3 ml 01/14/25 07:39 Ipratropium 0.5 Mg/Albuterol Sulfate 2.5 Mg Ampul.Neb 3 Ml INHALATION Q6HRT PRN Wheezing Dextrose 12.5 gm 01/10/25 00:27 01/19/25 00:12 Dextrose 50% 25 Gm/50 Ml Syringe IV PUSH 12.5 gm PRN PRN Administration Hypoglycemia Protocol Glucagon 1 mg 01/10/25 00:27 Glucagon For Inj 1 Mg Vial IM PRN PRN Hypoglycemia Protocol Glucose 15 gm 01/10/25 00:27 Glucose Oral Gel 15 Gm Of Glucse In 37.5 Gm Tube PO PRN PRN Hypoglycemia Protocol Hydrocortisone Sodium Succinate 100 mg 01/19/25 09:00 Hydrocortisone Sodium Succinate 100 Mg/2 Ml Vial IV PUSH QAM JENNY Dextrose 1,000 mls @ 100 mls/hr 01/10/25 00:27 Dextrose 5% 1,000 Ml IVPB PRN PRN Hypoglycemia Protocol Propofol 100 mls @ 0 mls/hr 01/12/25 10:55 01/19/25 07:43 Diprivan IV CONT 0 mcg/kg/min .Q0M JENNY 0 mls/hr Protocol Titration 0 MCG/KG/MIN Dexmedetomidine HCl 400 mcg in 100 mls @ 19.355 mls/hr 01/14/25 07:45 01/19/25 07:43 Precedex 400 Mcg/100 Ml IV CONT 0.7 mcg/kg/hr .Q5H10M JENNY 19.36 mls/hr Protocol Titration 0.7 MCG/KG/HR Norepinephrine Bitartrate 8 mg in 250 mls @ 3.75 mls/hr 01/18/25 08:55 01/19/25 06:00 Levophed 8 Mg/D5w 250 Ml IV CONT 2 mcg/min .Q24H JENNY 3.75 mls/hr Protocol Titration 2 MCG/MIN Insulin Aspart 3 - 6 units 01/10/25 06:00 01/19/25 05:51 Insulin Aspart (*Bkc) 100 Units/Ml SUB-Q Not Given Q6HR [facility]1983 Protocol Multi-Ingred Cream/Lotion/Oil/Oint 1 applic 01/12/25 21:00 01/18/25 20:11 Mineral Oil/White Petrolatum Ointment EACH EYE 1 applic Q12HR JENNY Administration Pantoprazole Sodium 40 mg 01/09/25 21:00 01/18/25 20:11 Pantoprazole Sodium Iv 40 Mg Vial IV PUSH 40 mg Q12HR JENNY Administration Polyethylene Glycol 17 gm 01/12/25 10:42 01/14/25 09:00 Polyethylene Glycol 3350 17 Gm Powd.Pack PO 17 gm QAM PRN Administration Constipation Fluticasone/Salmeterol 2 puff 01/09/25 20:00 01/14/25 20:56 Fluticasone/Salmeterol 115-21 Mcg Inhaler 1 Puff INHALATION Not Given On Hold: 01/14/25 08:00 Q12HRT JENNY Senna/Docusate Sodium 1 tab 01/12/25 21:00 01/18/25 19:51 Senna/Docusate Sodium Tablet PO Not Given HS [facility]1983 Sodium Chloride 20 ml 01/09/25 17:08 Central Line Flush IV PUSH PRN PRN after blood draws Sodium Chloride 20 ml 01/09/25 17:34 01/11/25 05:29 Central Line Flush IV PUSH 20 ml PRN PRN Administration after blood draws Radiology Results: ITS Impressions Chest/Abdomen/Pelvis CTA 01/09/25 13:59 IMPRESSION: 1. Extensive airspace disease of the right upper and lower lobe, consistent with pneumonia. 2: Bilateral pleural effusions, right greater than left. 3: Hypodense right renal masses. Cannot exclude renal cell carcinoma. Consider correlation with MRI abdomen with contrast. 4: Small pericardial effusion. Head CT 01/09/25 14:00 IMPRESSION: 1. No acute intracranial hemorrhage. No mass effect. 2. Probable chronic ischemic white matter change. Renal Ultrasound 01/09/25 19:35 IMPRESSION: No hydronephrosis or renal calculi. Indeterminate focus within the interpolar region of the right kidney, for which contrast enhanced CT or MRI (with renal mass protocol) is suggested for further evaluation. Abdomen Ultrasound 01/09/25 19:44 IMPRESSION: Limited evaluation of the pancreas secondary to overlying bowel gas Hepatomegaly with additional findings of portal hypertension, as detailed above. Abdomen X-Ray 01/18/25 06:34 Impression: NG tube in satisfactory position. Suspected small bowel obstruction. Chest/Abdomen/Pelvis CT 01/18/25 09:56 IMPRESSION: 1. There are a few distended small bowel loops which may be due to an ileus or a developing small bowel obstruction. Follow-up is recommended. 2. Fernández catheter in the mildly distended bladder. Small amount of new nondependent air in the bladder possibly due to recent instrumentation or cystitis 3. Otherwise, the appearance of the abdomen and pelvis is similar to the CT study from 01/15/2025. 4. Grossly stable appearance of the chest as compared to the study from 01/15/2025 Chest X-Ray 01/19/25 08:09 Impression: 1: Bilateral airspace disease may represent edema or pneumonia. 2: Right pleural effusion. Labs Labs: Laboratory Results - last 24 hr 01/15/25 01/18/25 01/18/25 08:06 05:22 12:09 WBC RBC Hgb Hct MCV MCH MCHC RDW Plt Count MPV Puncture Site ABG pH ABG pCO2 ABG pO2 ABG PO2/FiO2 Ratio ABG HCO3 ABG O2 Saturation ABG O2 Content ABG Base Excess A-a Gradient Oxyhemoglobin Carboxyhemoglobin Methemoglobin Reduced Hemoglobin Total Hemoglobin O2 Delivery Device O2 Liters/Min Minute Volume Not Reportable Vent Rate 22 Vent Mode Cmv FiO2 Tidal Volume 480 PEEP 8 Peak Inspir Pressure Not Reportable Pressure Support Not Reportable Sodium Potassium Chloride Carbon Dioxide Anion Gap BUN Creatinine Estim Creat Clear Calc Estimated GFR Glucose POC Capillary Glucose 148 H Calcium Magnesium Total Bilirubin AST ALT Alkaline Phosphatase Total Protein Albumin Crossmatch See Detail 01/18/25 01/18/25 01/19/25 13:56 17:36 00:10 WBC 13.9 H RBC 3.04 L Hgb 8.8 L Hct 27.6 L MCV 90.8 MCH 28.9 MCHC 31.9 L RDW 18.4 H Plt Count 137 L MPV 11.4 H Puncture Site ABG pH ABG pCO2 ABG pO2 ABG PO2/FiO2 Ratio ABG HCO3 ABG O2 Saturation ABG O2 Content ABG Base Excess A-a Gradient Oxyhemoglobin Carboxyhemoglobin Methemoglobin Reduced Hemoglobin Total Hemoglobin O2 Delivery Device O2 Liters/Min Minute Volume Vent Rate Vent Mode FiO2 Tidal Volume PEEP Peak Inspir Pressure Pressure Support Sodium Potassium Chloride Carbon Dioxide Anion Gap BUN Creatinine Estim Creat Clear Calc Estimated GFR Glucose POC Capillary Glucose 125 H 57 L* Calcium Magnesium Total Bilirubin AST ALT Alkaline Phosphatase Total Protein Albumin Crossmatch 01/19/25 01/19/25 01/19/25 00:39 04:00 04:53 WBC 9.6 RBC 2.90 L Hgb 8.4 L Hct 27.1 L MCV 93.4 MCH 29.0 MCHC 31.0 L RDW 19.3 H Plt Count 119 L MPV 11.7 H Puncture Site Artline ABG pH 7.307 L ABG pCO2 39.0 ABG pO2 73.4 L ABG PO2/FiO2 Ratio 2.10 ABG HCO3 19.1 L ABG O2 Saturation 93.5 L ABG O2 Content 11.6 L ABG Base Excess -6.7 A-a Gradient 130.8 Oxyhemoglobin 92.2 Carboxyhemoglobin 0.6 Methemoglobin 0.3 Reduced Hemoglobin 6.9 H Total Hemoglobin 8.9 L O2 Delivery Device Ventilator O2 Liters/Min Not Reportable Minute Volume Not Reportable Vent Rate 22 Vent Mode Cmv FiO2 35 Tidal Volume 480 PEEP 8 Peak Inspir Pressure Not Reportable Pressure Support Not Reportable Sodium 145 Potassium 3.4 Chloride 116 H Carbon Dioxide 24 Anion Gap 5 BUN 71 H Creatinine 1.51 H Estim Creat Clear Calc 56 Estimated GFR 46 L Glucose 98 POC Capillary Glucose 144 H Calcium 8.4 Magnesium 2.7 H Total Bilirubin 0.3 AST 23 ALT 72 H Alkaline Phosphatase 51 Total Protein 4.7 L Albumin 2.5 L Crossmatch 01/19/25 05:43 WBC RBC Hgb Hct MCV MCH MCHC RDW Plt Count MPV Puncture Site ABG pH ABG pCO2 ABG pO2 ABG PO2/FiO2 Ratio ABG HCO3 ABG O2 Saturation ABG O2 Content ABG Base Excess A-a Gradient Oxyhemoglobin Carboxyhemoglobin Methemoglobin Reduced Hemoglobin Total Hemoglobin O2 Delivery Device O2 Liters/Min Minute Volume Vent Rate Vent Mode FiO2 Tidal Volume PEEP Peak Inspir Pressure Pressure Support Sodium Potassium Chloride Carbon Dioxide Anion Gap BUN Creatinine Estim Creat Clear Calc Estimated GFR Glucose POC Capillary Glucose 92 Calcium Magnesium Total Bilirubin AST ALT Alkaline Phosphatase Total Protein Albumin Crossmatch Quality VTE Prophylaxis VTE prophylaxis: mechanical ordered
[2025-01-19] MEDS: HYDROCORTISONE SODIUM SUCCINATE 100 MG/2 ML VIAL IV PUSH (08:39)
[2025-01-19] MEDS: POTASSIUM BICARBONATE 25 MEQ TABEF 50 MEQ FEED TUBE (08:39)
[2025-01-19] MEDS: PANTOPRAZOLE SODIUM IV 40 MG VIAL IV PUSH (08:39)
[2025-01-19] MEDS: MINERAL OIL/WHITE PETROLATUM OINTMENT 1 APPLIC EACH EYE (08:40)
--- NOTE | 2025-01-19 09:51 | WPDGIPROGNO ---
Progress Note: A&P Assessment and Plan (1) GIB (gastrointestinal bleeding): Code(s): K92.2 - Gastrointestinal hemorrhage, unspecified Status: Acute Assessment and Plan: The patient has multiple peptic ulcers, two of which were treated with epinephrine injection, bipolar cauterization, and clip placement. Despite remaining hemodynamically stable with a stable hemoglobin after receiving two transfusions last night, the presence of active maroon stools remains a concern for persistent bleeding. Given the aggressive nature of the two endoscopic interventions within 48 hours without complete bleeding control, the patient may be a candidate for an interventional radiology consultation in an outside institution for embolization if the hemoglobin level drops further. This case was discussed with the commercial tire service technician, Dr. Jaffe. (2) Duodenal ulcer hemorrhage: Code(s): K26.4 - Chronic or unspecified duodenal ulcer with hemorrhage Status: Acute Subjective Date/time seen: 01/19/25 09:51 Interval history: Patient remains intubated and hemodynamically stable, however on minimal dose of Levophed. Exam Narrative: Fecal collection system shows evidence of rene hematochezia (maroon stools) Objective Data Vital Signs Vital Signs: Vital Signs - 24 hr 01/18/25 10:00 01/18/25 10:00 01/18/25 10:00 Temperature Pulse Rate 106 H 93 93 Respiratory Rate 25 H 25 H 25 H Blood Pressure Pulse Oximetry Oxygen Delivery Fraction of Inspired Oxygen 01/18/25 10:00 01/18/25 10:00 01/18/25 10:00 Temperature Pulse Rate 78 78 84 Respiratory Rate 25 H 25 H Blood Pressure 129/71 Pulse Oximetry Oxygen Delivery Fraction of Inspired Oxygen 01/18/25 10:00 01/18/25 10:00 01/18/25 10:23 Temperature 97.1 F L 97.1 F L Pulse Rate 89 84 78 Respiratory Rate 23 H 24 H Blood Pressure 135/72 121/67 Pulse Oximetry 94 94 Oxygen Delivery Fraction of Inspired Oxygen 01/18/25 10:30 01/18/25 11:23 01/18/25 12:00 Temperature 96.7 F L Pulse Rate 58 L 60 87 Respiratory Rate 22 H Blood Pressure 139/76 129/70 Pulse Oximetry 97 95 Oxygen Delivery Mechanical Ventilation Fraction of Inspired Oxygen 01/18/25 12:00 01/18/25 12:00 01/18/25 12:00 Temperature 96.6 F L Pulse Rate 87 87 87 Respiratory Rate 22 H 22 H 22 H Blood Pressure 105/61 Pulse Oximetry 97 Oxygen Delivery Fraction of Inspired Oxygen 01/18/25 12:00 01/18/25 12:00 01/18/25 12:00 Temperature Pulse Rate 83 Respiratory Rate Blood Pressure Pulse Oximetry 99 Oxygen Delivery Mechanical Ventilation Fraction of Inspired Oxygen 40 40 01/18/25 13:30 01/18/25 13:45 01/18/25 13:50 Temperature Pulse Rate 54 L 60 54 L Respiratory Rate Blood Pressure 93/53 L 141/76 H Pulse Oximetry 96 Oxygen Delivery Mechanical Ventilation Fraction of Inspired Oxygen 01/18/25 14:00 01/18/25 14:00 01/18/25 14:00 Temperature Pulse Rate 59 L 57 L 57 L Respiratory Rate 22 H 22 H Blood Pressure 133/75 Pulse Oximetry Oxygen Delivery Fraction of Inspired Oxygen 01/18/25 14:00 01/18/25 14:00 01/18/25 14:12 Temperature 96.7 F L Pulse Rate 57 L 57 L 55 L Respiratory Rate 22 H 22 H Blood Pressure 138/75 Pulse Oximetry 97 Oxygen Delivery Fraction of Inspired Oxygen 01/18/25 14:12 01/18/25 14:15 01/18/25 14:29 Temperature Pulse Rate 55 L 61 58 L Respiratory Rate 22 H Blood Pressure 158/86 H 88/49 L Pulse Oximetry Oxygen Delivery Fraction of Inspired Oxygen 01/18/25 14:41 01/18/25 14:43 01/18/25 15:08 Temperature Pulse Rate 55 L 55 L 61 Respiratory Rate 22 H 22 H Blood Pressure 138/75 Pulse Oximetry Oxygen Delivery Fraction of Inspired Oxygen 01/18/25 15:33 01/18/25 15:45 01/18/25 16:00 Temperature Pulse Rate 61 54 L Respiratory Rate 22 H 22 H Blood Pressure Pulse Oximetry Oxygen Delivery Fraction of Inspired Oxygen 40 01/18/25 16:00 01/18/25 16:00 01/18/25 16:00 Temperature 96.7 F L Pulse Rate 57 L 57 L 57 L Respiratory Rate 22 H 22 H 22 H Blood Pressure 118/64 Pulse Oximetry 98 Oxygen Delivery Fraction of Inspired Oxygen 01/18/25 16:00 01/18/25 16:00 01/18/25 16:00 Temperature Pulse Rate 57 L 72 Respiratory Rate Blood Pressure 118/64 Pulse Oximetry 98 Oxygen Delivery Mechanical Ventilation Fraction of Inspired Oxygen 40 01/18/25 16:30 01/18/25 16:30 01/18/25 17:24 Temperature Pulse Rate 52 L 56 L 63 Respiratory Rate 22 H Blood Pressure 98/53 L Pulse Oximetry 97 Oxygen Delivery Mechanical Ventilation Fraction of Inspired Oxygen 40 01/18/25 17:45 01/18/25 18:00 01/18/25 18:00 Temperature Pulse Rate 44 L 58 L 58 L Respiratory Rate 22 H 22 H 22 H Blood Pressure Pulse Oximetry Oxygen Delivery Fraction of Inspired Oxygen 01/18/25 18:00 01/18/25 18:00 01/18/25 18:00 Temperature 96.8 F L Pulse Rate 58 L 58 L 58 L Respiratory Rate 22 H Blood Pressure 105/53 L 105/53 L Pulse Oximetry 96 Oxygen Delivery Fraction of Inspired Oxygen 01/18/25 20:00 01/18/25 20:00 01/18/25 20:00 Temperature Pulse Rate 58 L 58 L 58 L Respiratory Rate 22 H 22 H Blood Pressure 101/55 L Pulse Oximetry Oxygen Delivery Fraction of Inspired Oxygen 01/18/25 20:00 01/18/25 20:00 01/18/25 20:00 Temperature 97.2 F L Pulse Rate 80 Respiratory Rate 22 H Blood Pressure 105/55 L Pulse Oximetry 97 98 Oxygen Delivery Mechanical Ventilation Fraction of Inspired Oxygen 40 40 01/18/25 20:00 01/18/25 20:10 01/18/25 20:18 Temperature Pulse Rate 71 63 54 L Respiratory Rate 22 H Blood Pressure Pulse Oximetry 98 Oxygen Delivery Mechanical Ventilation Fraction of Inspired Oxygen 40 01/18/25 20:18 01/18/25 20:19 01/18/25 20:19 Temperature Pulse Rate 54 L 54 L 54 L Respiratory Rate 22 H 22 H 22 H Blood Pressure Pulse Oximetry Oxygen Delivery Fraction of Inspired Oxygen 01/18/25 22:00 01/18/25 22:00 01/18/25 22:00 Temperature 97.7 F Pulse Rate 85 83 81 Respiratory Rate 26 H Blood Pressure 99/55 L 102/56 L Pulse Oximetry 94 Oxygen Delivery Fraction of Inspired Oxygen 01/18/25 22:05 01/18/25 22:05 01/18/25 23:10 Temperature Pulse Rate 83 83 98 Respiratory Rate 22 H 22 H Blood Pressure Pulse Oximetry 95 Oxygen Delivery Mechanical Ventilation Fraction of Inspired Oxygen 40 01/19/25 00:00 01/19/25 00:00 01/19/25 00:00 Temperature Pulse Rate 92 92 92 Respiratory Rate 22 H 22 H Blood Pressure 109/51 L Pulse Oximetry Oxygen Delivery Fraction of Inspired Oxygen 01/19/25 00:00 01/19/25 00:00 01/19/25 00:00 Temperature 98.2 F Pulse Rate 88 87 Respiratory Rate 25 H Blood Pressure 109/51 L Pulse Oximetry 95 98 Oxygen Delivery Mechanical Ventilation Fraction of Inspired Oxygen 40 01/19/25 00:00 01/19/25 00:19 01/19/25 00:19 Temperature Pulse Rate 88 88 Respiratory Rate 22 H 22 H Blood Pressure Pulse Oximetry Oxygen Delivery Fraction of Inspired Oxygen 40 01/19/25 02:00 01/19/25 02:00 01/19/25 02:00 Temperature 98.6 F Pulse Rate 106 H 100 100 Respiratory Rate 25 H 22 H Blood Pressure 107/62 Pulse Oximetry 96 Oxygen Delivery Fraction of Inspired Oxygen 01/19/25 02:00 01/19/25 02:00 01/19/25 02:00 Temperature Pulse Rate 100 100 112 H Respiratory Rate 22 H Blood Pressure 102/59 L Pulse Oximetry 97 Oxygen Delivery Mechanical Ventilation Fraction of Inspired Oxygen 40 01/19/25 03:30 01/19/25 04:00 01/19/25 04:00 Temperature 97.8 F Pulse Rate 115 H 110 H Respiratory Rate 22 H 25 H Blood Pressure 102/58 L Pulse Oximetry 91 98 Oxygen Delivery Mechanical Ventilation Fraction of Inspired Oxygen 40 01/19/25 04:00 01/19/25 04:00 01/19/25 04:00 Temperature 98.7 F Pulse Rate 111 H 119 H Respiratory Rate 22 H Blood Pressure 101/59 L Pulse Oximetry 94 Oxygen Delivery Fraction of Inspired Oxygen 35 01/19/25 04:00 01/19/25 04:00 01/19/25 04:00 Temperature Pulse Rate 119 H 119 H 119 H Respiratory Rate 22 H 22 H Blood Pressure 101/59 L Pulse Oximetry Oxygen Delivery Fraction of Inspired Oxygen 01/19/25 05:00 01/19/25 05:13 01/19/25 05:13 Temperature Pulse Rate 117 H 108 H 108 H Respiratory Rate 23 H 23 H Blood Pressure Pulse Oximetry 93 Oxygen Delivery Mechanical Ventilation Fraction of Inspired Oxygen 35 01/19/25 06:00 01/19/25 06:00 01/19/25 06:00 Temperature 98.9 F Pulse Rate 109 H 109 H 109 H Respiratory Rate 24 H 24 H Blood Pressure 96/57 L Pulse Oximetry 93 Oxygen Delivery Fraction of Inspired Oxygen 01/19/25 06:00 01/19/25 06:00 01/19/25 06:00 Temperature 98.9 F Pulse Rate 109 H 109 H 117 H Respiratory Rate 24 H 27 H Blood Pressure 96/57 L 105/62 Pulse Oximetry 93 Oxygen Delivery Fraction of Inspired Oxygen 01/19/25 06:25 01/19/25 06:25 01/19/25 07:41 Temperature Pulse Rate 106 H 106 H 107 H Respiratory Rate 23 H 23 H Blood Pressure Pulse Oximetry 96 Oxygen Delivery Mechanical Ventilation Fraction of Inspired Oxygen 35 01/19/25 07:43 01/19/25 07:43 01/19/25 08:00 Temperature Pulse Rate 123 H 123 H 117 H Respiratory Rate 25 H 25 H Blood Pressure 113/65 Pulse Oximetry Oxygen Delivery Fraction of Inspired Oxygen 01/19/25 08:00 01/19/25 09:49 Temperature 99.2 F Pulse Rate 117 H 120 H Respiratory Rate 26 H Blood Pressure 113/65 Pulse Oximetry 95 95 Oxygen Delivery Mechanical Ventilation Fraction of Inspired Oxygen 35 Intake/Output Intake/Output: Intake & Output 01/16/25 01/17/25 01/18/25 01/19/25 23:59 23:59 23:59 23:59 Intake Total 2799.3 2155.6 2493.7 628.8 Output Total 2125 2100 2600 900 Balance 674.3 55.6 -106.3 -271.2 Meds/Results Medications: Active Medications Generic Name Dose Route Start Last Admin Trade Name Freq PRN Reason Stop Dose Admin Acetaminophen 650 mg 01/09/25 14:52 Acetaminophen 650 Mg Suppository RECTAL Q6H PRN Mild Pain (1-3) or Fever Acetaminophen 650 mg 01/17/25 10:46 01/17/25 11:10 Acetaminophen Elixir 325 Mg/10.15 Ml Udc PO 650 mg Q4H PRN Administration Mild Pain (1-3) or Fever Albuterol/Ipratropium 3 ml 01/14/25 07:39 Ipratropium 0.5 Mg/Albuterol Sulfate 2.5 Mg Ampul.Neb 3 Ml INHALATION Q6HRT PRN Wheezing Dextrose 12.5 gm 01/10/25 00:27 01/19/25 00:12 Dextrose 50% 25 Gm/50 Ml Syringe IV PUSH 12.5 gm PRN PRN Administration Hypoglycemia Protocol Glucagon 1 mg 01/10/25 00:27 Glucagon For Inj 1 Mg Vial IM PRN PRN Hypoglycemia Protocol Glucose 15 gm 01/10/25 00:27 Glucose Oral Gel 15 Gm Of Glucse In 37.5 Gm Tube PO PRN PRN Hypoglycemia Protocol Hydrocortisone Sodium Succinate 100 mg 01/19/25 09:00 01/19/25 08:39 Hydrocortisone Sodium Succinate 100 Mg/2 Ml Vial IV PUSH 100 mg QAM JENNY Administration Dextrose 1,000 mls @ 100 mls/hr 01/10/25 00:27 Dextrose 5% 1,000 Ml IVPB PRN PRN Hypoglycemia Protocol Propofol 100 mls @ 0 mls/hr 01/12/25 10:55 01/19/25 07:43 Diprivan IV CONT 0 mcg/kg/min .Q0M JENNY 0 mls/hr Protocol Titration 0 MCG/KG/MIN Dexmedetomidine HCl 400 mcg in 100 mls @ 19.355 mls/hr 01/14/25 07:45 01/19/25 07:43 Precedex 400 Mcg/100 Ml IV CONT 0.7 mcg/kg/hr .Q5H10M JENNY 19.36 mls/hr Protocol Titration 0.7 MCG/KG/HR Norepinephrine Bitartrate 8 mg in 250 mls @ 1.875 mls/hr 01/18/25 08:55 01/19/25 08:00 Levophed 8 Mg/D5w 250 Ml IV CONT 1 mcg/min .Q24H JENNY 1.88 mls/hr Protocol Titration 1 MCG/MIN Insulin Aspart 3 - 6 units 01/10/25 06:00 01/19/25 05:51 Insulin Aspart (*Bkc) 100 Units/Ml SUB-Q Not Given Q6HR JENNY Protocol Multi-Ingred Cream/Lotion/Oil/Oint 1 applic 01/12/25 21:00 01/19/25 08:40 Mineral Oil/White Petrolatum Ointment EACH EYE 1 applic Q12HR JENNY Administration Pantoprazole Sodium 40 mg 01/09/25 21:00 01/19/25 08:39 Pantoprazole Sodium Iv 40 Mg Vial IV PUSH 40 mg Q12HR JENNY Administration Polyethylene Glycol 17 gm 01/12/25 10:42 01/14/25 09:00 Polyethylene Glycol 3350 17 Gm Powd.Pack PO 17 gm QAM PRN Administration Constipation Fluticasone/Salmeterol 2 puff 01/09/25 20:00 01/14/25 20:56 Fluticasone/Salmeterol 115-21 Mcg Inhaler 1 Puff INHALATION Not Given On Hold: 01/14/25 08:00 Q12HRT JENNY Senna/Docusate Sodium 1 tab 01/12/25 21:00 01/18/25 19:51 Senna/Docusate Sodium Tablet PO Not Given HS JENNY Sodium Chloride 20 ml 01/09/25 17:08 Central Line Flush IV PUSH PRN PRN after blood draws Sodium Chloride 20 ml 01/09/25 17:34 01/11/25 05:29 Central Line Flush IV PUSH 20 ml PRN PRN Administration after blood draws Radiology Results: ITS Impressions Chest/Abdomen/Pelvis CTA 01/09/25 13:59 IMPRESSION: 1. Extensive airspace disease of the right upper and lower lobe, consistent with pneumonia. 2: Bilateral pleural effusions, right greater than left. 3: Hypodense right renal masses. Cannot exclude renal cell carcinoma. Consider correlation with MRI abdomen with contrast. 4: Small pericardial effusion. Head CT 01/09/25 14:00 IMPRESSION: 1. No acute intracranial hemorrhage. No mass effect. 2. Probable chronic ischemic white matter change. Renal Ultrasound 01/09/25 19:35 IMPRESSION: No hydronephrosis or renal calculi. Indeterminate focus within the interpolar region of the right kidney, for which contrast enhanced CT or MRI (with renal mass protocol) is suggested for further evaluation. Abdomen Ultrasound 01/09/25 19:44 IMPRESSION: Limited evaluation of the pancreas secondary to overlying bowel gas Hepatomegaly with additional findings of portal hypertension, as detailed above. Abdomen X-Ray 01/18/25 06:34 Impression: NG tube in satisfactory position. Suspected small bowel obstruction. Chest/Abdomen/Pelvis CT 01/18/25 09:56 IMPRESSION: 1. There are a few distended small bowel loops which may be due to an ileus or a developing small bowel obstruction. Follow-up is recommended. 2. Fernández catheter in the mildly distended bladder. Small amount of new nondependent air in the bladder possibly due to recent instrumentation or cystitis 3. Otherwise, the appearance of the abdomen and pelvis is similar to the CT study from 01/15/2025. 4. Grossly stable appearance of the chest as compared to the study from 01/15/2025 Chest X-Ray 01/19/25 08:09 Impression: 1: Bilateral airspace disease may represent edema or pneumonia. 2: Right pleural effusion. Labs Labs: Laboratory Results - last 24 hr 01/15/25 01/18/25 01/18/25 08:06 05:22 12:09 WBC RBC Hgb Hct MCV MCH MCHC RDW Plt Count MPV Puncture Site ABG pH ABG pCO2 ABG pO2 ABG PO2/FiO2 Ratio ABG HCO3 ABG O2 Saturation ABG O2 Content ABG Base Excess A-a Gradient Oxyhemoglobin Carboxyhemoglobin Methemoglobin Reduced Hemoglobin Total Hemoglobin O2 Delivery Device O2 Liters/Min Minute Volume Not Reportable Vent Rate 22 Vent Mode Cmv FiO2 Tidal Volume 480 PEEP 8 Peak Inspir Pressure Not Reportable Pressure Support Not Reportable Sodium Potassium Chloride Carbon Dioxide Anion Gap BUN Creatinine Estim Creat Clear Calc Estimated GFR Glucose POC Capillary Glucose 148 H Calcium Magnesium Total Bilirubin AST ALT Alkaline Phosphatase Total Protein Albumin Crossmatch See Detail 01/18/25 01/18/25 01/19/25 13:56 17:36 00:10 WBC 13.9 H RBC 3.04 L Hgb 8.8 L Hct 27.6 L MCV 90.8 MCH 28.9 MCHC 31.9 L RDW 18.4 H Plt Count 137 L MPV 11.4 H Puncture Site ABG pH ABG pCO2 ABG pO2 ABG PO2/FiO2 Ratio ABG HCO3 ABG O2 Saturation ABG O2 Content ABG Base Excess A-a Gradient Oxyhemoglobin Carboxyhemoglobin Methemoglobin Reduced Hemoglobin Total Hemoglobin O2 Delivery Device O2 Liters/Min Minute Volume Vent Rate Vent Mode FiO2 Tidal Volume PEEP Peak Inspir Pressure Pressure Support Sodium Potassium Chloride Carbon Dioxide Anion Gap BUN Creatinine Estim Creat Clear Calc Estimated GFR Glucose POC Capillary Glucose 125 H 57 L* Calcium Magnesium Total Bilirubin AST ALT Alkaline Phosphatase Total Protein Albumin Crossmatch 01/19/25 01/19/25 01/19/25 00:39 04:00 04:53 WBC 9.6 RBC 2.90 L Hgb 8.4 L Hct 27.1 L MCV 93.4 MCH 29.0 MCHC 31.0 L RDW 19.3 H Plt Count 119 L MPV 11.7 H Puncture Site Artline ABG pH 7.307 L ABG pCO2 39.0 ABG pO2 73.4 L ABG PO2/FiO2 Ratio 2.10 ABG HCO3 19.1 L ABG O2 Saturation 93.5 L ABG O2 Content 11.6 L ABG Base Excess -6.7 A-a Gradient 130.8 Oxyhemoglobin 92.2 Carboxyhemoglobin 0.6 Methemoglobin 0.3 Reduced Hemoglobin 6.9 H Total Hemoglobin 8.9 L O2 Delivery Device Ventilator O2 Liters/Min Not Reportable Minute Volume Not Reportable Vent Rate 22 Vent Mode Cmv FiO2 35 Tidal Volume 480 PEEP 8 Peak Inspir Pressure Not Reportable Pressure Support Not Reportable Sodium 145 Potassium 3.4 Chloride 116 H Carbon Dioxide 24 Anion Gap 5 BUN 71 H Creatinine 1.51 H Estim Creat Clear Calc 56 Estimated GFR 46 L Glucose 98 POC Capillary Glucose 144 H Calcium 8.4 Magnesium 2.7 H Total Bilirubin 0.3 AST 23 ALT 72 H Alkaline Phosphatase 51 Total Protein 4.7 L Albumin 2.5 L Crossmatch 01/19/25 05:43 WBC RBC Hgb Hct MCV MCH MCHC RDW Plt Count MPV Puncture Site ABG pH ABG pCO2 ABG pO2 ABG PO2/FiO2 Ratio ABG HCO3 ABG O2 Saturation ABG O2 Content ABG Base Excess A-a Gradient Oxyhemoglobin Carboxyhemoglobin Methemoglobin Reduced Hemoglobin Total Hemoglobin O2 Delivery Device O2 Liters/Min Minute Volume Vent Rate Vent Mode FiO2 Tidal Volume PEEP Peak Inspir Pressure Pressure Support Sodium Potassium Chloride Carbon Dioxide Anion Gap BUN Creatinine Estim Creat Clear Calc Estimated GFR Glucose POC Capillary Glucose 92 Calcium Magnesium Total Bilirubin AST ALT Alkaline Phosphatase Total Protein Albumin Crossmatch
[2025-01-19] MEDS: PROPOFOL IV EMULSION 100 ML 16.23 MG IV CONT (12:00)
[2025-01-19] MEDS: dexmedeTOMIDine 400 MCG/100 ML 400 MCG/100 ML BAG 19.36 MCG IV CONT (12:00)
--- NOTE | 2025-01-19 12:05 | PM.EVENT ---
Event Note Event Note Event Note: Patient failed his weaning trial due to high respiratory rate and RSBI. Spoke to GI physician who recommends transfer to tertiary facility for angiogram and embolization as he anticipates the bleeding will continue from the ulcer. I spoke to [facility] transfer line and then discuss case with Dr. Carver from [facility]. Discuss case and need for potential need for angiogram and embolization if patient continues to bleed. She has accepted the patient and patient will be transferred once bed is available.
--- NOTE | 2025-01-19 12:12 | P.PNIM_ITS ---
Progress Note: A&P Assessment and Plan (1) Acute hypoxic respiratory failure: Code(s): J96.01 - Acute respiratory failure with hypoxia Status: Acute Assessment and Plan: still intubated from pneumonia and (2) Bleeding: Code(s): R58 - Hemorrhage, not elsewhere classified Status: Acute Assessment and Plan: Multiple peptic ulcer s/p 2 EGDs with epinephrine injection patient still bleeding and to be transferred to higher level of care for IR intervention GI following (3) Septic shock: Code(s): A41.9 - Sepsis, unspecified organism; R65.21 - Severe sepsis with septic shock Status: Acute Assessment and Plan: Patient with hypotension, acute respiratory failure, lactic acidosis, tachycardia Completed antibiotics continue Levophed continue above care per [employer] (4) Pneumonia: Qualifiers: Laterality: right Lung location: unspecified part of lung Pneumonia type: due to unspecified organism Qualified Code(s): J18.9 - Pneumonia, unspecified organism Code(s): J18.9 - Pneumonia, unspecified organism Status: Acute Assessment and Plan: Likely pneumonia on of the right upper and lower lobe -COVID, RSV and influenza were NEGATIVE -completed antibiotics -currently on mechanical ventilation (5) Acute exacerbation of chronic obstructive pulmonary disease: Code(s): J44.1 - Chronic obstructive pulmonary disease with (acute) exacerbation Status: Acute Assessment and Plan: History of is COPD with emphysema seen on CT scan of the chest -continue bronchodilators as above (6) Atrial fibrillation: Qualifiers: Atrial fibrillation type: unspecified Qualified Code(s): I48.91 - Unspecified atrial fibrillation Code(s): I48.91 - Unspecified atrial fibrillation Status: Acute Assessment and Plan: History of atrial flutter/fibrillation patient is on apixaban at home, hold apixaban for now -currently in AFib, RVR with heart rates in the 70s -01/18 overnight patient became bradycardic and amiodarone was discontinued - 01/15 discontinued heparin infusion due to upper GI bleed 01/19 converted overnight to sinus rhythm. Currently in sinus tachycardia. Not on anticoagulation or antiplatelet agent due to bleeding duodenal ulcer (7) Polysubstance use disorder: Code(s): F19.90 - Other psychoactive substance use, unspecified, uncomplicated Status: Acute Assessment and Plan: Urine tox screen was positive for cannabis and cocaine Will educational guidance counselor patient once he is extubated (8) Transaminitis: Code(s): R74.01 - Elevation of levels of liver transaminase levels Status: Acute Assessment and Plan: Significantly elevated LFTs, -RUQ ultrasound shows hepatomegaly with additional findings of portal hypertension -hepatitis panel was negative -could also be related to hypoxia, hypotension/shock -continue to monitor liver function tests (9) Elevated troponin: Code(s): R79.89 - Other specified abnormal findings of blood chemistry Status: Acute Assessment and Plan: Elevated troponin 0.215 -could be related to type 2 infarct, is EKG did not show any ST elevation -troponins were flat, 01/10/2025: Echocardiogram Summary 1. Complete two-dimensional, color flow and Doppler transthoracic echocardiogram is performed. 2. Somewhat challenging exam with patient on ventilator support. 3. Normal left ventricular size with overall good systolic function, paradoxical septal motion consistent with bundle branch block. EF 55-60% 4. Right ventricular enlargement with systolic dysfunction. 5. Mild tricuspid regurgitation, estimated RV systolic pressure 51 mmHg. 6. Sclerotic aortic valve which exhibits preserved leaflet excursion. continue above care per [employer] (10) Current smoker: Code(s): F17.200 - Nicotine dependence, unspecified, uncomplicated Status: Acute Assessment and Plan: Will educational guidance counselor patient on tobacco cessation once he is extubated (11) CHF (congestive heart failure): Qualifiers: Heart failure type: unspecified Heart failure chronicity: chronic Qualified Code(s): I50.9 - Heart failure, unspecified Code(s): I50.9 - Heart failure, unspecified Status: Acute Assessment and Plan: Patient has a history of CHF, likely HFpEF -proBNP > 54005 Echocardiogram as above, EF of 55%, RVSP 51 mmHg, moderate pulmonary hypertension likely related to COPD -chest x-ray does not show pulmonary edema -Lasix IV given 01/16 continue above care per [employer] (12) Electrolyte imbalance: Code(s): E87.8 - Other disorders of electrolyte and fluid balance, not elsewhere classifi ed Status: Acute Assessment and Plan: Potassium replacement ordered (13) Acute renal failure: Code(s): N17.9 - Acute kidney failure, unspecified Status: Acute Assessment and Plan: 01/09/2025: Patient presented with creatinine of 3.81 (baseline 1.10-1.23). 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 SCDs Stress ulcer prophylaxis: Protonix Nutrition: Tube feeds Code Status: DNR Subjective Date/time seen: 01/19/25 12:12 Interval history: Patient remains intubated and sedated at bedside awaiting transfer for IR intervention Review of Systems Review of Systems: ROS unobtainable: Yes unobtainable due to endotracheal tube, unobtainable due to medical condition and unobtainable due to mental statu s Exam Narrative: General: Patient intubated and sedated, in no acute distress at this time HEENT:? Pupils equally reactive, sclera is clear, ETT in place Neck:? Supple Respiratory:? Coarse breath sounds bilaterally R > L, decreased breath sounds at right base, distant breath sounds Cardiac:? Irregularly irregular, tachycardia Abdomen:? Soft, nontender, nondistended, hypoactive but present bowel sounds , FMS in place with dark black stool but output has dropped Extremities:? Extremities are warm, palpable pedal pulse Neuro:? Patient intubated, sedated, he follows commands with all 4 extremities, PERRL Skin:? No skin lesions noted Psych:? Unable to assess at this time Const: General: comfortable and no acute distress Other: , male, intubated and sedated. HENMT: Face/Nose/Sinus: Normal nares present Mouth: Yes moist mucous membranes Other: ETT and OG in place Eyes: General: appearance normal, both eyes and all related structures Sclera: sclerae normal Pupils: Equal, round and reactive pupils present EOM: EOMs intact bilaterally Resp: Other: Coarse breath sounds bilaterally, right greater than left. Diminished at bases. Tolerating that well. No distress noted. Cardio: Rate: regular rate Rhythm: abnormal rhythm Other: No murmur or rub. GI: Other: Abdomen soft, nondistended, nontender. Hypoactive bowel sounds in all quadrants. Urinary Catheter: Urinary Catheter: patent and draining Skin: General skin exam: normal color and no rashes or lesions noted Wounds: no wounds Neuro: Cranial nerves: Yes Equal, round and reactive pupils present Other: Intubated and sedated. Does not open eyes or follow commands. Does not withdraw from pain. GCS 3 upon arrival. Extrem: General: normal to inspection Psych: Other: Unable to assess. Objective Data Vital Signs Vital Signs: Vital Signs - 24 hr 01/18/25 13:30 01/18/25 13:45 01/18/25 13:50 Temperature Pulse Rate 54 L 60 54 L Respiratory Rate Blood Pressure 93/53 L 141/76 H Pulse Oximetry 96 Oxygen Delivery Mechanical Ventilation Fraction of Inspired Oxygen 01/18/25 14:00 01/18/25 14:00 01/18/25 14:00 Temperature Pulse Rate 59 L 57 L 57 L Respiratory Rate 22 H 22 H Blood Pressure 133/75 Pulse Oximetry Oxygen Delivery Fraction of Inspired Oxygen 01/18/25 14:00 01/18/25 14:00 01/18/25 14:12 Temperature 96.7 F L Pulse Rate 57 L 57 L 55 L Respiratory Rate 22 H 22 H Blood Pressure 138/75 Pulse Oximetry 97 Oxygen Delivery Fraction of Inspired Oxygen 01/18/25 14:12 01/18/25 14:15 01/18/25 14:29 Temperature Pulse Rate 55 L 61 58 L Respiratory Rate 22 H Blood Pressure 158/86 H 88/49 L Pulse Oximetry Oxygen Delivery Fraction of Inspired Oxygen 01/18/25 14:41 01/18/25 14:43 01/18/25 15:08 Temperature Pulse Rate 55 L 55 L 61 Respiratory Rate 22 H 22 H Blood Pressure 138/75 Pulse Oximetry Oxygen Delivery Fraction of Inspired Oxygen 01/18/25 15:33 01/18/25 15:45 01/18/25 16:00 Temperature Pulse Rate 61 54 L Respiratory Rate 22 H 22 H Blood Pressure Pulse Oximetry Oxygen Delivery Fraction of Inspired Oxygen 40 01/18/25 16:00 01/18/25 16:00 01/18/25 16:00 Temperature 96.7 F L Pulse Rate 57 L 57 L 57 L Respiratory Rate 22 H 22 H 22 H Blood Pressure 118/64 Pulse Oximetry 98 Oxygen Delivery Fraction of Inspired Oxygen 01/18/25 16:00 01/18/25 16:00 01/18/25 16:00 Temperature Pulse Rate 57 L 72 Respiratory Rate Blood Pressure 118/64 Pulse Oximetry 98 Oxygen Delivery Mechanical Ventilation Fraction of Inspired Oxygen 40 01/18/25 16:30 01/18/25 16:30 01/18/25 17:24 Temperature Pulse Rate 52 L 56 L 63 Respiratory Rate 22 H Blood Pressure 98/53 L Pulse Oximetry 97 Oxygen Delivery Mechanical Ventilation Fraction of Inspired Oxygen 40 01/18/25 17:45 01/18/25 18:00 01/18/25 18:00 Temperature Pulse Rate 44 L 58 L 58 L Respiratory Rate 22 H 22 H 22 H Blood Pressure Pulse Oximetry Oxygen Delivery Fraction of Inspired Oxygen 01/18/25 18:00 01/18/25 18:00 01/18/25 18:00 Temperature 96.8 F L Pulse Rate 58 L 58 L 58 L Respiratory Rate 22 H Blood Pressure 105/53 L 105/53 L Pulse Oximetry 96 Oxygen Delivery Fraction of Inspired Oxygen 01/18/25 20:00 01/18/25 20:00 01/18/25 20:00 Temperature Pulse Rate 58 L 58 L 58 L Respiratory Rate 22 H 22 H Blood Pressure 101/55 L Pulse Oximetry Oxygen Delivery Fraction of Inspired Oxygen 01/18/25 20:00 01/18/25 20:00 01/18/25 20:00 Temperature 97.2 F L Pulse Rate 80 Respiratory Rate 22 H Blood Pressure 105/55 L Pulse Oximetry 97 98 Oxygen Delivery Mechanical Ventilation Fraction of Inspired Oxygen 40 40 01/18/25 20:00 01/18/25 20:10 01/18/25 20:18 Temperature Pulse Rate 71 63 54 L Respiratory Rate 22 H Blood Pressure Pulse Oximetry 98 Oxygen Delivery Mechanical Ventilation Fraction of Inspired Oxygen 40 01/18/25 20:18 01/18/25 20:19 01/18/25 20:19 Temperature Pulse Rate 54 L 54 L 54 L Respiratory Rate 22 H 22 H 22 H Blood Pressure Pulse Oximetry Oxygen Delivery Fraction of Inspired Oxygen 01/18/25 22:00 01/18/25 22:00 01/18/25 22:00 Temperature 97.7 F Pulse Rate 85 83 81 Respiratory Rate 26 H Blood Pressure 99/55 L 102/56 L Pulse Oximetry 94 Oxygen Delivery Fraction of Inspired Oxygen 01/18/25 22:05 01/18/25 22:05 01/18/25 23:10 Temperature Pulse Rate 83 83 98 Respiratory Rate 22 H 22 H Blood Pressure Pulse Oximetry 95 Oxygen Delivery Mechanical Ventilation Fraction of Inspired Oxygen 40 01/19/25 00:00 01/19/25 00:00 01/19/25 00:00 Temperature Pulse Rate 92 92 92 Respiratory Rate 22 H 22 H Blood Pressure 109/51 L Pulse Oximetry Oxygen Delivery Fraction of Inspired Oxygen 01/19/25 00:00 01/19/25 00:00 01/19/25 00:00 Temperature 98.2 F Pulse Rate 88 87 Respiratory Rate 25 H Blood Pressure 109/51 L Pulse Oximetry 95 98 Oxygen Delivery Mechanical Ventilation Fraction of Inspired Oxygen 40 01/19/25 00:00 01/19/25 00:19 01/19/25 00:19 Temperature Pulse Rate 88 88 Respiratory Rate 22 H 22 H Blood Pressure Pulse Oximetry Oxygen Delivery Fraction of Inspired Oxygen 40 01/19/25 02:00 01/19/25 02:00 01/19/25 02:00 Temperature 98.6 F Pulse Rate 106 H 100 100 Respiratory Rate 25 H 22 H Blood Pressure 107/62 Pulse Oximetry 96 Oxygen Delivery Fraction of Inspired Oxygen 01/19/25 02:00 01/19/25 02:00 01/19/25 02:00 Temperature Pulse Rate 100 100 112 H Respiratory Rate 22 H Blood Pressure 102/59 L Pulse Oximetry 97 Oxygen Delivery Mechanical Ventilation Fraction of Inspired Oxygen 40 01/19/25 03:30 01/19/25 04:00 01/19/25 04:00 Temperature 97.8 F Pulse Rate 115 H 110 H Respiratory Rate 22 H 25 H Blood Pressure 102/58 L Pulse Oximetry 91 98 Oxygen Delivery Mechanical Ventilation Fraction of Inspired Oxygen 40 01/19/25 04:00 01/19/25 04:00 01/19/25 04:00 Temperature 98.7 F Pulse Rate 111 H 119 H Respiratory Rate 22 H Blood Pressure 101/59 L Pulse Oximetry 94 Oxygen Delivery Fraction of Inspired Oxygen 35 01/19/25 04:00 01/19/25 04:00 01/19/25 04:00 Temperature Pulse Rate 119 H 119 H 119 H Respiratory Rate 22 H 22 H Blood Pressure 101/59 L Pulse Oximetry Oxygen Delivery Fraction of Inspired Oxygen 01/19/25 05:00 01/19/25 05:13 01/19/25 05:13 Temperature Pulse Rate 117 H 108 H 108 H Respiratory Rate 23 H 23 H Blood Pressure Pulse Oximetry 93 Oxygen Delivery Mechanical Ventilation Fraction of Inspired Oxygen 35 01/19/25 06:00 01/19/25 06:00 01/19/25 06:00 Temperature 98.9 F Pulse Rate 109 H 109 H 109 H Respiratory Rate 24 H 24 H Blood Pressure 96/57 L Pulse Oximetry 93 Oxygen Delivery Fraction of Inspired Oxygen 01/19/25 06:00 01/19/25 06:00 01/19/25 06:00 Temperature 98.9 F Pulse Rate 109 H 109 H 117 H Respiratory Rate 24 H 27 H Blood Pressure 96/57 L 105/62 Pulse Oximetry 93 Oxygen Delivery Fraction of Inspired Oxygen 01/19/25 06:25 01/19/25 06:25 01/19/25 07:41 Temperature Pulse Rate 106 H 106 H 107 H Respiratory Rate 23 H 23 H Blood Pressure Pulse Oximetry 96 Oxygen Delivery Mechanical Ventilation Fraction of Inspired Oxygen 35 01/19/25 07:43 01/19/25 07:43 01/19/25 08:00 Temperature Pulse Rate 123 H 123 H 117 H Respiratory Rate 25 H 25 H Blood Pressure 113/65 Pulse Oximetry Oxygen Delivery Fraction of Inspired Oxygen 01/19/25 08:00 01/19/25 09:49 01/19/25 10:00 Temperature 99.2 F 99.5 F Pulse Rate 117 H 120 H 121 H Respiratory Rate 26 H 24 H Blood Pressure 113/65 81/51 L Pulse Oximetry 95 95 94 Oxygen Delivery Mechanical Ventilation Fraction of Inspired Oxygen 35 01/19/25 10:00 01/19/25 10:00 01/19/25 10:00 Temperature Pulse Rate 121 H 121 H 121 H Respiratory Rate 24 H 24 H Blood Pressure 104/62 Pulse Oximetry Oxygen Delivery Fraction of Inspired Oxygen 01/19/25 12:00 01/19/25 12:00 01/19/25 12:00 Temperature 99.5 F Pulse Rate 102 H 98 98 Respiratory Rate 22 H 25 H 25 H Blood Pressure 107/59 L Pulse Oximetry 98 Oxygen Delivery Fraction of Inspired Oxygen 01/19/25 12:00 Temperature Pulse Rate 104 H Respiratory Rate Blood Pressure 105/68 Pulse Oximetry Oxygen Delivery Fraction of Inspired Oxygen Intake/Output Intake/Output: Intake & Output 01/16/25 01/17/25 01/18/25 01/19/25 23:59 23:59 23:59 23:59 Intake Total 2799.3 2155.6 2493.7 720.6 Output Total 2125 2100 2600 900 Balance 674.3 55.6 -106.3 -179.4 Meds/Results Medications: Active Medications Generic Name Dose Route Start Last Admin Trade Name Freq PRN Reason Stop Dose Admin Acetaminophen 650 mg 01/09/25 14:52 Acetaminophen 650 Mg Suppository RECTAL Q6H PRN Mild Pain (1-3) or Fever Acetaminophen 650 mg 01/17/25 10:46 01/17/25 11:10 Acetaminophen Elixir 325 Mg/10.15 Ml Udc PO 650 mg Q4H PRN Administration Mild Pain (1-3) or Fever Albuterol/Ipratropium 3 ml 01/14/25 07:39 Ipratropium 0.5 Mg/Albuterol Sulfate 2.5 Mg Ampul.Neb 3 Ml INHALATION Q6HRT PRN Wheezing Dextrose 12.5 gm 01/10/25 00:27 01/19/25 00:12 Dextrose 50% 25 Gm/50 Ml Syringe IV PUSH 12.5 gm PRN PRN Administration Hypoglycemia Protocol Glucagon 1 mg 01/10/25 00:27 Glucagon For Inj 1 Mg Vial IM PRN PRN Hypoglycemia Protocol Glucose 15 gm 01/10/25 00:27 Glucose Oral Gel 15 Gm Of Glucse In 37.5 Gm Tube PO PRN PRN Hypoglycemia Protocol Hydrocortisone Sodium Succinate 100 mg 01/19/25 09:00 01/19/25 08:39 Hydrocortisone Sodium Succinate 100 Mg/2 Ml Vial IV PUSH 100 mg QAM JENNY Administration Dextrose 1,000 mls @ 100 mls/hr 01/10/25 00:27 Dextrose 5% 1,000 Ml IVPB PRN PRN Hypoglycemia Protocol Propofol 100 mls @ 0 mls/hr 01/12/25 10:55 01/19/25 12:00 Diprivan IV CONT 25 mcg/kg/min .Q0M JENNY 16.23 mls/hr Protocol Administration 0 MCG/KG/MIN Dexmedetomidine HCl 400 mcg in 100 mls @ 19.355 mls/hr 01/14/25 07:45 01/19/25 10:00 Precedex 400 Mcg/100 Ml IV CONT 0.7 mcg/kg/hr .Q5H10M JENNY 19.36 mls/hr Protocol Titration 0.7 MCG/KG/HR Norepinephrine Bitartrate 8 mg in 250 mls @ 1.875 mls/hr 01/18/25 08:55 01/19/25 12:00 Levophed 8 Mg/D5w 250 Ml IV CONT 3 mcg/min .Q24H JENNY 5.63 mls/hr Protocol Titration 1 MCG/MIN Insulin Aspart 3 - 6 units 01/10/25 06:00 01/19/25 05:51 Insulin Aspart (*Bkc) 100 Units/Ml SUB-Q Not Given Q6HR [facility] Protocol Multi-Ingred Cream/Lotion/Oil/Oint 1 applic 01/12/25 21:00 01/19/25 08:40 Mineral Oil/White Petrolatum Ointment EACH EYE 1 applic Q12HR JENNY Administration Pantoprazole Sodium 40 mg 01/09/25 21:00 01/19/25 08:39 Pantoprazole Sodium Iv 40 Mg Vial IV PUSH 40 mg Q12HR JENNY Administration Polyethylene Glycol 17 gm 01/12/25 10:42 01/14/25 09:00 Polyethylene Glycol 3350 17 Gm Powd.Pack PO 17 gm QAM PRN Administration Constipation Fluticasone/Salmeterol 2 puff 01/09/25 20:00 01/14/25 20:56 Fluticasone/Salmeterol 115-21 Mcg Inhaler 1 Puff INHALATION Not Given On Hold: 01/14/25 08:00 Q12HRT JENNY Senna/Docusate Sodium 1 tab 01/12/25 21:00 01/18/25 19:51 Senna/Docusate Sodium Tablet PO Not Given HS [facility] Sodium Chloride 20 ml 01/09/25 17:08 Central Line Flush IV PUSH PRN PRN after blood draws Sodium Chloride 20 ml 01/09/25 17:34 01/11/25 05:29 Central Line Flush IV PUSH 20 ml PRN PRN Administration after blood draws Radiology Results: ITS Impressions Chest/Abdomen/Pelvis CTA 01/09/25 13:59 IMPRESSION: 1. Extensive airspace disease of the right upper and lower lobe, consistent with pneumonia. 2: Bilateral pleural effusions, right greater than left. 3: Hypodense right renal masses. Cannot exclude renal cell carcinoma. Consider correlation with MRI abdomen with contrast. 4: Small pericardial effusion. Head CT 01/09/25 14:00 IMPRESSION: 1. No acute intracranial hemorrhage. No mass effect. 2. Probable chronic ischemic white matter change. Renal Ultrasound 01/09/25 19:35 IMPRESSION: No hydronephrosis or renal calculi. Indeterminate focus within the interpolar region of the right kidney, for which contrast enhanced CT or MRI (with renal mass protocol) is suggested for further evaluation. Abdomen Ultrasound 01/09/25 19:44 IMPRESSION: Limited evaluation of the pancreas secondary to overlying bowel gas Hepatomegaly with additional findings of portal hypertension, as detailed above. Abdomen X-Ray 01/18/25 06:34 Impression: NG tube in satisfactory position. Suspected small bowel obstruction. Chest/Abdomen/Pelvis CT 01/18/25 09:56 IMPRESSION: 1. There are a few distended small bowel loops which may be due to an ileus or a developing small bowel obstruction. Follow-up is recommended. 2. Fernández catheter in the mildly distended bladder. Small amount of new nondependent air in the bladder possibly due to recent instrumentation or cystitis 3. Otherwise, the appearance of the abdomen and pelvis is similar to the CT study from 01/15/2025. 4. Grossly stable appearance of the chest as compared to the study from 01/15/2025 Chest X-Ray 01/19/25 08:09 Impression: 1: Bilateral airspace disease may represent edema or pneumonia. 2: Right pleural effusion. Labs Labs: Laboratory Results - last 24 hr 01/15/25 01/18/25 01/18/25 08:06 05:22 12:09 WBC RBC Hgb Hct MCV MCH MCHC RDW Plt Count MPV Puncture Site ABG pH ABG pCO2 ABG pO2 ABG PO2/FiO2 Ratio ABG HCO3 ABG O2 Saturation ABG O2 Content ABG Base Excess A-a Gradient Oxyhemoglobin Carboxyhemoglobin Methemoglobin Reduced Hemoglobin Total Hemoglobin O2 Delivery Device O2 Liters/Min Minute Volume Not Reportable Vent Rate 22 Vent Mode Cmv FiO2 Tidal Volume 480 PEEP 8 Peak Inspir Pressure Not Reportable Pressure Support Not Reportable Sodium Potassium Chloride Carbon Dioxide Anion Gap BUN Creatinine Estim Creat Clear Calc Estimated GFR Glucose POC Capillary Glucose 148 H Calcium Magnesium Total Bilirubin AST ALT Alkaline Phosphatase Total Protein Albumin Crossmatch See Detail 01/18/25 01/18/25 01/19/25 13:56 17:36 00:10 WBC 13.9 H RBC 3.04 L Hgb 8.8 L Hct 27.6 L MCV 90.8 MCH 28.9 MCHC 31.9 L RDW 18.4 H Plt Count 137 L MPV 11.4 H Puncture Site ABG pH ABG pCO2 ABG pO2 ABG PO2/FiO2 Ratio ABG HCO3 ABG O2 Saturation ABG O2 Content ABG Base Excess A-a Gradient Oxyhemoglobin Carboxyhemoglobin Methemoglobin Reduced Hemoglobin Total Hemoglobin O2 Delivery Device O2 Liters/Min Minute Volume Vent Rate Vent Mode FiO2 Tidal Volume PEEP Peak Inspir Pressure Pressure Support Sodium Potassium Chloride Carbon Dioxide Anion Gap BUN Creatinine Estim Creat Clear Calc Estimated GFR Glucose POC Capillary Glucose 125 H 57 L* Calcium Magnesium Total Bilirubin AST ALT Alkaline Phosphatase Total Protein Albumin Crossmatch 01/19/25 01/19/25 01/19/25 00:39 04:00 04:53 WBC 9.6 RBC 2.90 L Hgb 8.4 L Hct 27.1 L MCV 93.4 MCH 29.0 MCHC 31.0 L RDW 19.3 H Plt Count 119 L MPV 11.7 H Puncture Site Artline ABG pH 7.307 L ABG pCO2 39.0 ABG pO2 73.4 L ABG PO2/FiO2 Ratio 2.10 ABG HCO3 19.1 L ABG O2 Saturation 93.5 L ABG O2 Content 11.6 L ABG Base Excess -6.7 A-a Gradient 130.8 Oxyhemoglobin 92.2 Carboxyhemoglobin 0.6 Methemoglobin 0.3 Reduced Hemoglobin 6.9 H Total Hemoglobin 8.9 L O2 Delivery Device Ventilator O2 Liters/Min Not Reportable Minute Volume Not Reportable Vent Rate 22 Vent Mode Cmv FiO2 35 Tidal Volume 480 PEEP 8 Peak Inspir Pressure Not Reportable Pressure Support Not Reportable Sodium 145 Potassium 3.4 Chloride 116 H Carbon Dioxide 24 Anion Gap 5 BUN 71 H Creatinine 1.51 H Estim Creat Clear Calc 56 Estimated GFR 46 L Glucose 98 POC Capillary Glucose 144 H Calcium 8.4 Magnesium 2.7 H Total Bilirubin 0.3 AST 23 ALT 72 H Alkaline Phosphatase 51 Total Protein 4.7 L Albumin 2.5 L Crossmatch 01/19/25 01/19/25 05:43 11:14 WBC RBC Hgb Hct MCV MCH MCHC RDW Plt Count MPV Puncture Site ABG pH ABG pCO2 ABG pO2 ABG PO2/FiO2 Ratio ABG HCO3 ABG O2 Saturation ABG O2 Content ABG Base Excess A-a Gradient Oxyhemoglobin Carboxyhemoglobin Methemoglobin Reduced Hemoglobin Total Hemoglobin O2 Delivery Device O2 Liters/Min Minute Volume Vent Rate Vent Mode FiO2 Tidal Volume PEEP Peak Inspir Pressure Pressure Support Sodium Potassium Chloride Carbon Dioxide Anion Gap BUN Creatinine Estim Creat Clear Calc Estimated GFR Glucose POC Capillary Glucose 92 122 H Calcium Magnesium Total Bilirubin AST ALT Alkaline Phosphatase Total Protein Albumin Crossmatch Quality VTE Prophylaxis VTE prophylaxis: mechanical ordered
--- NOTE | 2025-01-19 12:43 | P.PNNP_ITS ---
Progress Note: A&P Assessment and Plan (1) Acute kidney injury: Code(s): N17.9 - Acute kidney failure, unspecified Status: Acute Assessment and Plan: * slow and steady improvement noted * as noted on admission * normal creatinine on hospital discharge in June 2024 * suspect ATN with multifactorial etiology: * infection/sepsis * hemodynamic instability/shock * prerenal factors * ARB + diuretic use prior to admission * polysubstance abuse * other (?) * evaluation to date noted: * urine electrolytes pre-renal * CT of abdomen with hypodense right renal masses * renal u/s with no hydronephrosis or renal calculi; indeterminate focus within the interpolar region of the right kidney * urine eosinophils negative * UA without evidence of infection * CPK normal * follow trend of repeat labs and UOP (2) Septic shock: Code(s): A41.9 - Sepsis, unspecified organism; R65.21 - Severe sepsis with septic shock Status: Acute Assessment and Plan: * as noted on presentation with hypotension, acute respiratory failure, lactic acidosis, tachycardia, and DERECK/ARF * presumably secondary to pneumonia * s/p 2L IV fluid bolus and on maintenance IV fluid * lactic acid has normalized * on/off vasopressor (levophed) support * culture data noted: * blood culture (from 01/09 and 01/11) negative * sputum culture with Pseudomonas * on antibiotics * continue current therapy (3) GIB (gastrointestinal bleeding): Code(s): K92.2 - Gastrointestinal hemorrhage, unspecified Status: Acute Assessment and Plan: * noted by dropping H/H first noted on 01/15 * dark stools and blood tinged OG tube output as well * heparin discontinued * s/p EGD (on 01/16) with findings/interventions noted: * moderate gastritis with a few crater ulcers noted * largest ulcer with signs of recent bleeding and was treated with gold probe * another ulcer was oozing blood and had attached clot which was subsequently removed with site of active bleeding noted and treated with cauterization and injection of epinephrine along with clipping * repeat EGD (on 01/18) with noted ulcers seen on 01/16 EGD * larger ulcer with visible non-bleeding vessel noted -- injected with epinephrine and cauterized * PRBC transfusion per protocol * total of 6 units of PRBC given to date * on IV PPI * GI following (4) Acute hypoxic respiratory failure: Code(s): J96.01 - Acute respiratory failure with hypoxia Status: Acute Assessment and Plan: * as noted on presentation to the ER * intubated in ER on admission (due to hypoxia and agonal breathing) * complicated by mucus plugging of right main stem bronchus requiring bronchoscopy with suctioning of secretions * CT imaging noted * no evidence of pulmonary embolism, extensive right upper lobe and lower lobe airspace disease consistent with pneumonia; ilateral pleural effusion, right greater than left * Echo noted: * normal left ventricular size with overall good systolic function, paradoxical septal motion consistent with bundle branch block * EF 55-60% * right ventricular enlargement with systolic dysfunction * mild tricuspid regurgitation, estimated RV systolic pressure 51 mmHg * sclerotic aortic valve which exhibits preserved leaflet excursion * on ventilator support - weaning as tolerated * chest physiotherapy * on nebulizer therapy, mucomyst, and pulmozyme * further complicated by known history of COPD (5) Pneumonia: Qualifiers: Laterality: right Lung location: unspecified part of lung Pneumonia type: due to unspecified organism Qualified Code(s): J18.9 - Pneumonia, unspecified organism Code(s): J18.9 - Pneumonia, unspecified organism Status: Acute Assessment and Plan: * as suggested by imaging to date * COVID, RSV and influenza testing negative * Pseudomonas noted in sputum culture * continue antibiotics * follow respiratory status (6) Anemia: Code(s): D64.9 - Anemia, unspecified Status: Acute Assessment and Plan: * complicated by #3 * partly due to DERECK/ARF along with acute illness * follow trend of H/H (7) CHF (congestive heart failure): Qualifiers: Heart failure type: unspecified Heart failure chronicity: chronic Q ualified Code(s): I50.9 - Heart failure, unspecified Code(s): I50.9 - Heart failure, unspecified Status: Acute Assessment and Plan: * known history * Echo noted (see #4) * evidence of fluid overload by recent imaging * diuresis PRN (8) Acute exacerbation of chronic obstructive pulmonary disease: Code(s): J44.1 - Chronic obstructive pulmonary disease with (acute) exacerbation Status: Acute Assessment and Plan: * known history of is COPD with emphysema seen on CT scan of the chest * likely precipitated by pneumonia * on bronchodilator therapy (9) Atrial fibrillation: Qualifiers: Atrial fibrillation type: unspecified Qualified Code(s): I48.91 - Unspecified atrial fibrillation Code(s): I48.91 - Unspecified atrial fibrillation Status: Acute Assessment and Plan: * rate control strategy * was on heparin gtt for anticoagulation * off due to drop in H/H and #3 * off amiodarone gtt (10) Transaminitis: Code(s): R74.01 - Elevation of levels of liver transaminase levels Status: Acute Assessment and Plan: * slowly improving * significantly elevated LFTs on admission * due to hypotension/shock and hypotension on presentation (?) * RUQ ultrasound shows hepatomegaly with additional findings of portal hypertension * hepatitis panel was negative * follow trend Will continue to follow. L Subjective Date/time seen: 01/19/25 12:43 Interval history: Follow-up for acute kidney injury/acute renal failure. S/P repeat EGD yesterday with noted with interventions noted; initially weaned off levophed but resumed yesterday afternoon; remains intubated/sedated and on mechanical ventilation; H/H relatively stable at this time but at risk for re- bleeding per GI; renal function/creatinine continues to improve with reasonable urine output noted; arrangements being made for possible hospital transfer given the potential need for angiogram and embolization if bleeding continues... Exam 2 Narrative: General: ill appearing male intubated/sedated and on mechanical ventilation Heart: tachycardic, normal S1 and S2; no rub Lungs: coarse breath sounds Abdomen: soft, nontender, nondistended, decreased bowel sounds Extremities: no cyanosis or clubbing; no edema Skin: no rash Objective Data Vital Signs Vital Signs: Vital Signs Temp Pulse Resp BP Pulse Ox O2 Del Method FiO2 01/19/25 12:00 98 Mechanical Ventilation 35 01/19/25 12:00 99.5 F 106 H 22 H 104/62 96 01/19/25 12:00 111 H 25 H 01/19/25 12:00 111 H 25 H 01/19/25 12:00 104 H 105/68 01/19/25 12:00 98 25 H 01/19/25 12:00 98 25 H 01/19/25 12:00 99.5 F 102 H 22 H 107/59 L 98 01/19/25 10:00 122 H 01/19/25 10:00 121 H 104/62 01/19/25 10:00 121 H 24 H 01/19/25 10:00 121 H 24 H 01/19/25 10:00 99.5 F 121 H 24 H 81/51 L 94 01/19/25 09:49 120 H 95 Mechanical Ventilation 35 01/19/25 08:00 35 01/19/25 08:00 95 Mechanical Ventilation 35 01/19/25 08:00 117 H 01/19/25 08:00 99.2 F 117 H 26 H 113/65 95 01/19/25 08:00 117 H 113/65 01/19/25 07:43 123 H 25 H 01/19/25 07:43 123 H 25 H 01/19/25 07:41 107 H 96 Mechanical Ventilation 35 01/19/25 06:25 106 H 23 H 01/19/25 06:25 106 H 23 H 01/19/25 06:00 98.9 F 117 H 27 H 105/62 93 01/19/25 06:00 109 H 96/57 L 01/19/25 06:00 109 H 24 H 01/19/25 06:00 109 H 24 H 01/19/25 06:00 98.9 F 109 H 24 H 96/57 L 93 01/19/25 06:00 109 H 01/19/25 05:13 108 H 23 H 01/19/25 05:13 108 H 23 H 01/19/25 05:00 117 H 93 Mechanical Ventilation 35 01/19/25 04:00 119 H 101/59 L 01/19/25 04:00 119 H 22 H 01/19/25 04:00 119 H 22 H 01/19/25 04:00 119 H 01/19/25 04:00 98.7 F 111 H 22 H 101/59 L 94 01/19/25 04:00 35 01/19/25 04:00 98 Mechanical Ventilation 40 01/19/25 04:00 97.8 F 110 H 25 H 102/58 L 91 01/19/25 03:30 115 H 22 H 01/19/25 02:00 112 H 97 Mechanical Ventilation 40 01/19/25 02:00 100 102/59 L 01/19/25 02:00 100 22 H 01/19/25 02:00 100 22 H 01/19/25 02:00 100 01/19/25 02:00 98.6 F 106 H 25 H 107/62 96 01/19/25 00:19 88 22 H 01/19/25 00:19 88 22 H 01/19/25 00:00 40 01/19/25 00:00 87 01/19/25 00:00 98 Mechanical Ventilation 40 01/19/25 00:00 98.2 F 88 25 H 109/51 L 95 01/19/25 00:00 92 109/51 L 01/19/25 00:00 92 22 H 01/19/25 00:00 92 22 H 01/18/25 23:10 98 95 Mechanical Ventilation 40 01/18/25 22:05 83 22 H 01/18/25 22:05 83 22 H 01/18/25 22:00 97.7 F 81 26 H 102/56 L 94 01/18/25 22:00 83 01/18/25 22:00 85 99/55 L 01/18/25 20:19 54 L 22 H 01/18/25 20:19 54 L 22 H 01/18/25 20:18 54 L 22 H 01/18/25 20:18 54 L 22 H 01/18/25 20:10 63 98 Mechanical Ventilation 40 01/18/25 20:00 71 01/18/25 20:00 40 01/18/25 20:00 98 Mechanical Ventilation 40 01/18/25 20:00 97.2 F L 80 22 H 105/55 L 97 01/18/25 20:00 58 L 101/55 L 01/18/25 20:00 58 L 22 H 01/18/25 20:00 58 L 22 H 01/18/25 18:00 96.8 F L 58 L 22 H 105/53 L 96 01/18/25 18:00 58 L 01/18/25 18:00 58 L 105/53 L 01/18/25 18:00 58 L 22 H 01/18/25 18:00 58 L 22 H 01/18/25 17:45 44 L 22 H 01/18/25 17:24 63 97 Mechanical Ventilation 40 Intake/Output Intake/Output: Intake & Output 01/16/25 01/17/25 01/18/25 01/19/25 23:59 23:59 23:59 23:59 Intake Total 2799.3 2155.6 2493.7 1179.3 Output Total 2125 2100 2600 1800 Balance 674.3 55.6 -106.3 -620.7 Meds/Results Medications: Active Medications Generic Name Dose Route Start Last Admin Trade Name Freq PRN Reason Stop Dose Admin Acetaminophen 650 mg 01/09/25 14:52 Acetaminophen 650 Mg Suppository RECTAL Q6H PRN Mild Pain (1-3) or Fever Acetaminophen 650 mg 01/17/25 10:46 01/17/25 11:10 Acetaminophen Elixir 325 Mg/10.15 Ml Udc PO 650 mg Q4H PRN Administration Mild Pain (1-3) or Fever Albuterol/Ipratropium 3 ml 01/14/25 07:39 Ipratropium 0.5 Mg/Albuterol Sulfate 2.5 Mg Ampul.Neb 3 Ml INHALATION Q6HRT PRN Wheezing Dextrose 12.5 gm 01/10/25 00:27 01/19/25 00:12 Dextrose 50% 25 Gm/50 Ml Syringe IV PUSH 12.5 gm PRN PRN Administration Hypoglycemia Protocol Glucagon 1 mg 01/10/25 00:27 Glucagon For Inj 1 Mg Vial IM PRN PRN Hypoglycemia Protocol Glucose 15 gm 01/10/25 00:27 Glucose Oral Gel 15 Gm Of Glucse In 37.5 Gm Tube PO PRN PRN Hypoglycemia Protocol Hydrocortisone Sodium Succinate 100 mg 01/19/25 09:00 01/19/25 08:39 Hydrocortisone Sodium Succinate 100 Mg/2 Ml Vial IV PUSH 100 mg QAM JENNY Administration Dextrose 1,000 mls @ 100 mls/hr 01/10/25 00:27 Dextrose 5% 1,000 Ml IVPB PRN PRN Hypoglycemia Protocol Propofol 100 mls @ 16.23 mls/hr 01/12/25 10:55 01/19/25 12:00 Diprivan IV CONT 25 mcg/kg/min .Q6H10M JENNY 16.23 mls/hr Protocol Administration 25 MCG/KG/MIN Dexmedetomidine HCl 400 mcg in 100 mls @ 19.355 mls/hr 01/14/25 07:45 01/19/25 12:00 Precedex 400 Mcg/100 Ml IV CONT 0.7 mcg/kg/hr .Q5H10M JENNY 19.36 mls/hr Protocol Administration 0.7 MCG/KG/HR Norepinephrine Bitartrate 8 mg in 250 mls @ 5.625 mls/hr 01/18/25 08:55 01/19/25 12:00 Levophed 8 Mg/D5w 250 Ml IV CONT 3 mcg/min .Q24H JENNY 5.63 mls/hr Protocol Titration 3 MCG/MIN Insulin Aspart 3 - 6 units 01/10/25 06:00 01/19/25 12:25 Insulin Aspart (*Bkc) 100 Units/Ml SUB-Q Not Given Q6HR [facility] Protocol Multi-Ingred Cream/Lotion/Oil/Oint 1 applic 01/12/25 21:00 01/19/25 08:40 Mineral Oil/White Petrolatum Ointment EACH EYE 1 applic Q12HR JENNY Administration Pantoprazole Sodium 40 mg 01/09/25 21:00 01/19/25 08:39 Pantoprazole Sodium Iv 40 Mg Vial IV PUSH 40 mg Q12HR JENNY Administration Polyethylene Glycol 17 gm 01/12/25 10:42 01/14/25 09:00 Polyethylene Glycol 3350 17 Gm Powd.Pack PO 17 gm QAM PRN Administration Constipation Fluticasone/Salmeterol 2 puff 01/09/25 20:00 01/14/25 20:56 Fluticasone/Salmeterol 115-21 Mcg Inhaler 1 Puff INHALATION Not Given On Hold: 01/14/25 08:00 Q12HRT JENNY Senna/Docusate Sodium 1 tab 01/12/25 21:00 01/18/25 19:51 Senna/Docusate Sodium Tablet PO Not Given HS [facility] Sodium Chloride 20 ml 01/09/25 17:08 Central Line Flush IV PUSH PRN PRN after blood draws Sodium Chloride 20 ml 01/09/25 17:34 01/11/25 05:29 Central Line Flush IV PUSH 20 ml PRN PRN Administration after blood draws Radiology Results: ITS Impressions Chest/Abdomen/Pelvis CTA 01/09/25 13:59 IMPRESSION: 1. Extensive airspace disease of the right upper and lower lobe, consistent with pneumonia. 2: Bilateral pleural effusions, right greater than left. 3: Hypodense right renal masses. Cannot exclude renal cell carcinoma. Consider correlation with MRI abdomen with contrast. 4: Small pericardial effusion. Head CT 01/09/25 14:00 IMPRESSION: 1. No acute intracranial hemorrhage. No mass effect. 2. Probable chronic ischemic white matter change. Renal Ultrasound 01/09/25 19:35 IMPRESSION: No hydronephrosis or renal calculi. Indeterminate focus within the interpolar region of the right kidney, for which contrast enhanced CT or MRI (with renal mass protocol) is suggested for further evaluation. Abdomen Ultrasound 01/09/25 19:44 IMPRESSION: Limited evaluation of the pancreas secondary to overlying bowel gas Hepatomegaly with additional findings of portal hypertension, as detailed above. Abdomen X-Ray 01/18/25 06:34 Impression: NG tube in satisfactory position. Suspected small bowel obstruction. Chest/Abdomen/Pelvis CT 01/18/25 09:56 IMPRESSION: 1. There are a few distended small bowel loops which may be due to an ileus or a developing small bowel obstruction. Follow-up is recommended. 2. Fernández catheter in the mildly distended bladder. Small amount of new nondependent air in the bladder possibly due to recent instrumentation or cystitis 3. Otherwise, the appearance of the abdomen and pelvis is similar to the CT study from 01/15/2025. 4. Grossly stable appearance of the chest as compared to the study from 01/15/2025 Chest X-Ray 01/19/25 08:09 Impression: 1: Bilateral airspace disease may represent edema or pneumonia. 2: Right pleural effusion. Labs Labs: Laboratory Tests 01/19/25 04:00 01/19/25 04:00 Calcium 8.4 Magnesium 2.7 H Total Bilirubin 0.3 AST 23 ALT 72 H Alkaline Phosphatase 51 Total Protein 4.7 L Albumin 2.5 L
--- NOTE | 2025-01-21 16:17 | P.TS_ITS ---
Transfer Discharge Sum: Prov Provider Date of admission: 01/09/25 15:14 Primary care physician: Shala DiazAlton Admitting clinician: Ruth Ann Givens MD Consults: 01/09/25 15:14 Consult to Physician Routine Comment: Consulting Provider: Tam Zamarripa Reason for consultation: Hypoxic resp failure Has provider been notified: Yes 01/10/25 08:08 Consult to Physician Routine Comment: Spoke with provider 01/10 @ 0810 Consulting Provider: Hany Galvan machine scallop cutter/ group to consult: Nephrology - Dr. Galvan Reason for consultation: Acute renal failure Has provider been notified: Yes 01/15/25 Consult to Physician Routine Comment: Consulting Provider: Harsh Sood machine scallop cutter/MD group to consult: GI Reason for consultation: Suspected GIB Has provider been notified: Yes DS: Admitting Diagnosis Discharge Date 01/19/25 Admitting Diagnosis Agonal Breathing, Unresponsive DS: Discharge Diagnosis Discharge Diagnosis (1) GIB (gastrointestinal bleeding): Code(s): K92.2 - Gastrointestinal hemorrhage, unspecified Status: Acute Transfer Discharge Sum: Med Medications Active and Home Medications: Home Medications albuterol sulfate 90 mcg/actuation aerosol inhaler (Ventolin HFA) 2 puff inhalation Q4-6H PRN Shortness of breath 07/03/24 [History Confirmed 01/09/25] apixaban 5 mg tablet (Eliquis) 5 mg PO BID 07/03/24 [History Confirmed 01/09/25] diltiazem HCl 360 mg capsule,extended release 24 hr 360 mg PO DAILY 07/03/24 [History Confirmed 01/09/25] furosemide 40 mg tablet 40 mg PO DAILY 07/03/24 [History Confirmed 01/09/25] losartan 50 mg tablet 50 mg PO DAILY 07/03/24 [History Confirmed 01/09/25] mometasone-formoterol HFA 200 mcg-5 mcg/actuation aerosol inhaler (Dulera) 2 puff inhalation BID 07/03/24 [History Confirmed 01/09/25] Transfer Discharge Sum: Hosp Hospital Course Hospital course: Reason for Transfer Persistent upper gastrointestinal bleeding from multiple duodenal ulcers refractory to two endoscopic interventions, requiring consideration for interventional radiology (angiogram and possible embolization). Patient remains intubated and on minimal vasopressor support. Hospital Course Summary Presenting Complaint: * Found unresponsive at home with agonal breathing for ?2 days. * EMS: Profound hypoxia, GCS 3, bag-mask ventilation, hypotension. * ED: Emergent intubation, persistent hypoxia despite mechanical ventilation, hypotension, lactic acidosis. [place] Diagnoses and Hospital Problems: Acute hypoxic respiratory failure?(J96.01): * Etiology: Severe right-sided pneumonia (Pseudomonas on sputum culture), mucus plugging requiring emergent bronchoscopy and suctioning. * Complicated by underlying COPD, chronic respiratory failure (on 3L home O2), and CHF. * Remains intubated and ventilated; failed weaning trial due to tachypnea and high RSBI.Septic shock?(A41.9, R65.21): * Presumed secondary to pneumonia. * Initial hypotension, lactic acidosis, DERECK. * Required vasopressors (Levophed); currently on minimal dose.Acute kidney injury?(N17.9): * Admission creatinine 3.81 (baseline ?1.1), BUN 79. * Etiology: Multifactorial (sepsis, hypotension, prerenal, ARB/diuretic use, polysubstance abuse, possible contrast). * Renal function improving; urine output adequate.Gastrointestinal bleeding?(K92.2): * Acute drop in Hgb from 11 to 7.8, melena, blood-tinged OG tube output. * EGD #1 (01/16): Multiple duodenal ulcers, largest with recent bleeding, treated with gold probe, epinephrine, and clipping. * EGD #2 (01/18): Persistent large ulcer with visible vessel, re-treated with epinephrine and cautery. * Total 6 units PRBC transfused. * Remains at risk for rebleeding; ongoing maroon stools. * Heparin and antiplatelet agents discontinued.Acute blood loss anemia?(D62): * Secondary to GI bleeding; transfused to maintain Hgb >7.Pneumonia?(J18.9): * Extensive right upper and lower lobe airspace disease. * Sputum culture: Pseudomonas. * Completed antibiotics.Acute exacerbation of COPD?(J44.1): * On bronchodilators, chest physiotherapy, Mucomyst, Pulmozyme.Atrial fibrillation?(I48.91): * History of AF/flutter, home apixaban (held for GI bleed). * Initially in AF with RVR, now in sinus tachycardia. * Not on anticoagulation due to bleeding risk.CHF (likely HFpEF)?(I50.9): * ProBNP >30,000, echo: EF 55-60%, RV enlargement/dysfunction, moderate pulmonary hypertension. * No pulmonary edema on CXR; diuresis as needed.Transaminitis?(R74.01): * AST/ALT >600 on admission, improving. * Etiology: Shock liver, portal hypertension on RUQ US, hepatitis panel negative.Polysubstance use disorder?(F19.90): * Urine tox positive for cocaine and cannabis.Electrolyte imbalances?(E87.8): * Hyperkalemia (K 6.1), managed with supportive care.Other findings: * CT: Bilateral pleural effusions (right > left), hyperdense right renal masses (possible RCC, outpatient follow-up), small pericardial effusion. * MRSA screen positive. Procedures/Interventions * Intubation and mechanical ventilation?(since 01/09) * Emergent bronchoscopy: Cleared thick mucus plugs, improved oxygenation. * Central and arterial line placement * Two EGDs?(01/16, 01/18): Multiple duodenal ulcers, endoscopic hemostasis (epinephrine, cautery, clipping). * Transfusions: 6 units PRBCs to date. * Vasopressors: Levophed, currently on minimal dose. Current Status (as of 01/19/2025) * Intubated, sedated, on mechanical ventilation * Hemodynamically stable?on minimal vasopressor support * Active GI bleeding: Ongoing maroon stools, high risk for rebleeding * Hemoglobin stable?after recent transfusions, but at risk for further drop * Renal function improving * Transferred to higher level of care?for interventional radiology (angiogram/embolization) Consultants Involved * Critical Care/[place]:?Dr. Ruth Ann Givens, Dr. Jaffe * Nephrology:?Dr. Shala Diaz * Gastroenterology:?Dr. Cardoza, Dr. Jaffe [place] Labs/Imaging * CBC:?Hgb augusto 7.8, transfused to >7 * Renal:?Cr 3.81 ? improving * Liver:?AST/ALT >600, improving * Cultures:?Sputum: Pseudomonas; Blood: negative * Imaging: * CT chest/abd/pelvis: RUL/LL pneumonia, bilateral effusions, right renal masses * Echo: EF 55-60%, RV dysfunction, moderate pulmonary hypertension * RUQ US: Hepatomegaly, portal hypertension Medications * IV PPI (Protonix) * Antibiotics: Completed (cefepime, vancomycin, doxycycline, Flagyl) * Bronchodilators, Mucomyst, Pulmozyme * Vasopressors: Levophed (minimal dose) * No anticoagulation/antiplatelet?(held for GI bleeding) * Tube feeds Code Status * DNR Summary/Plan * Transfer for IR evaluation and possible embolization?due to persistent/recurrent GI bleeding from duodenal ulcers refractory to endoscopic therapy. * Continue supportive care: Mechanical ventilation, vasopressors as needed, transfusions to maintain Hgb >7, IV PPI, monitor for rebleeding. * Monitor renal and hepatic function. * No anticoagulation due to active GI bleeding. * Continue antibiotics if indicated for pneumonia. * Consults:?IR, GI, Nephrology, Critical Care. Stable on transfer to higher level of care Patient Condition: Stable Time Spent with Patient Time attestation: Total time spent providing and/or coordinating transfer services:
--- NOTE | 2025-01-21 16:17 | PM.TDS ---
Transfer Discharge Sum: Prov Provider Date of admission: 01/09/25 15:14 Primary care physician: Shala DiazAlotn Admitting clinician: Ruth Ann Givens MD Consults: 01/09/25 15:14 Consult to Physician Routine Comment: Consulting Provider: Tam Zamarripa Reason for consultation: Hypoxic resp failure Has provider been notified: Yes 01/10/25 08:08 Consult to Physician Routine Comment: Spoke with provider 01/10 @ 0810 Consulting Provider: Hany Galvan call box wirer/ group to consult: Nephrology - Dr. Galvan Reason for consultation: Acute renal failure Has provider been notified: Yes 01/15/25 Consult to Physician Routine Comment: Consulting Provider: Harsh Sood call box wirer/MD group to consult: GI Reason for consultation: Suspected GIB Has provider been notified: Yes DS: Admitting Diagnosis Discharge Date 01/19/25 Admitting Diagnosis Agonal Breathing, Unresponsive DS: Discharge Diagnosis Discharge Diagnosis (1) GIB (gastrointestinal bleeding): Code(s): K92.2 - Gastrointestinal hemorrhage, unspecified Status: Acute Transfer Discharge Sum: Med Medications Active and Home Medications: Home Medications albuterol sulfate 90 mcg/actuation aerosol inhaler (Ventolin HFA) 2 puff inhalation Q4-6H PRN Shortness of breath 07/03/24 [History Confirmed 01/09/25] apixaban 5 mg tablet (Eliquis) 5 mg PO BID 07/03/24 [History Confirmed 01/09/25] diltiazem HCl 360 mg capsule,extended release 24 hr 360 mg PO DAILY 07/03/24 [History Confirmed 01/09/25] furosemide 40 mg tablet 40 mg PO DAILY 07/03/24 [History Confirmed 01/09/25] losartan 50 mg tablet 50 mg PO DAILY 07/03/24 [History Confirmed 01/09/25] mometasone-formoterol HFA 200 mcg-5 mcg/actuation aerosol inhaler (Dulera) 2 puff inhalation BID 07/03/24 [History Confirmed 01/09/25] Transfer Discharge Sum: Hosp Hospital Course Hospital course: Reason for Transfer Persistent upper gastrointestinal bleeding from multiple duodenal ulcers refractory to two endoscopic interventions, requiring consideration for interventional radiology (angiogram and possible embolization). Patient remains intubated and on minimal vasopressor support. Hospital Course Summary Presenting Complaint: Found unresponsive at home with agonal breathing for ?2 days. EMS: Profound hypoxia, GCS 3, bag-mask ventilation, hypotension. ED: Emergent intubation, persistent hypoxia despite mechanical ventilation, hypotension, lactic acidosis. [place] Diagnoses and Hospital Problems: Acute hypoxic respiratory failure?(J96.01): Etiology: Severe right-sided pneumonia (Pseudomonas on sputum culture), mucus plugging requiring emergent bronchoscopy and suctioning. Complicated by underlying COPD, chronic respiratory failure (on 3L home O2), and CHF. Remains intubated and ventilated; failed weaning trial due to tachypnea and high RSBI.Septic shock?(A41.9, R65.21): Presumed secondary to pneumonia. Initial hypotension, lactic acidosis, DERECK. Required vasopressors (Levophed); currently on minimal dose.Acute kidney injury?(N17.9): Admission creatinine 3.81 (baseline ?1.1), BUN 79. Etiology: Multifactorial (sepsis, hypotension, prerenal, ARB/diuretic use, polysubstance abuse, possible contrast). Renal function improving; urine output adequate.Gastrointestinal bleeding?(K92.2): Acute drop in Hgb from 11 to 7.8, melena, blood-tinged OG tube output. EGD #1 (01/16): Multiple duodenal ulcers, largest with recent bleeding, treated with gold probe, epinephrine, and clipping. EGD #2 (01/18): Persistent large ulcer with visible vessel, re-treated with epinephrine and cautery. Total 6 units PRBC transfused. Remains at risk for rebleeding; ongoing maroon stools. Heparin and antiplatelet agents discontinued.Acute blood loss anemia?(D62): Secondary to GI bleeding; transfused to maintain Hgb >7.Pneumonia?(J18.9): Extensive right upper and lower lobe airspace disease. Sputum culture: Pseudomonas. Completed antibiotics.Acute exacerbation of COPD?(J44.1): On bronchodilators, chest physiotherapy, Mucomyst, Pulmozyme.Atrial fibrillation?(I48.91): History of AF/flutter, home apixaban (held for GI bleed). Initially in AF with RVR, now in sinus tachycardia. Not on anticoagulation due to bleeding risk.CHF (likely HFpEF)?(I50.9): ProBNP >30,000, echo: EF 55-60%, RV enlargement/dysfunction, moderate pulmonary hypertension. No pulmonary edema on CXR; diuresis as needed.Transaminitis?(R74.01): AST/ALT >600 on admission, improving. Etiology: Shock liver, portal hypertension on RUQ US, hepatitis panel negative.Polysubstance use disorder?(F19.90): Urine tox positive for cocaine and cannabis.Electrolyte imbalances?(E87.8): Hyperkalemia (K 6.1), managed with supportive care.Other findings: CT: Bilateral pleural effusions (right > left), hyperdense right renal masses (possible RCC, outpatient follow-up), small pericardial effusion. MRSA screen positive. Procedures/Interventions Intubation and mechanical ventilation?(since 01/09) Emergent bronchoscopy: Cleared thick mucus plugs, improved oxygenation. Central and arterial line placement Two EGDs?(01/16, 01/18): Multiple duodenal ulcers, endoscopic hemostasis (epinephrine, cautery, clipping). Transfusions: 6 units PRBCs to date. Vasopressors: Levophed, currently on minimal dose. Current Status (as of 01/19/2025) Intubated, sedated, on mechanical ventilation Hemodynamically stable?on minimal vasopressor support Active GI bleeding: Ongoing maroon stools, high risk for rebleeding Hemoglobin stable?after recent transfusions, but at risk for further drop Renal function improving Transferred to higher level of care?for interventional radiology (angiogram/embolization) Consultants Involved Critical Care/Flexographic Press Operator:?Dr. Alannah Sneed Nephrology:?Dr. Shala Diaz Gastroenterology:?Dr. Cardoza, Dr. Jaffe [place] Labs/Imaging CBC:?Hgb augusto 7.8, transfused to >7 Renal:?Cr 3.81 ? improving Liver:?AST/ALT >600, improving Cultures:?Sputum: Pseudomonas; Blood: negative Imaging: CT chest/abd/pelvis: RUL/LL pneumonia, bilateral effusions, right renal masses Echo: EF 55-60%, RV dysfunction, moderate pulmonary hypertension RUQ US: Hepatomegaly, portal hypertension Medications IV PPI (Protonix) Antibiotics: Completed (cefepime, vancomycin, doxycycline, Flagyl) Bronchodilators, Mucomyst, Pulmozyme Vasopressors: Levophed (minimal dose) No anticoagulation/antiplatelet?(held for GI bleeding) Tube feeds Code Status DNR Summary/Plan Transfer for IR evaluation and possible embolization?due to persistent/recurrent GI bleeding from duodenal ulcers refractory to endoscopic therapy. Continue supportive care: Mechanical ventilation, vasopressors as needed, transfusions to maintain Hgb >7, IV PPI, monitor for rebleeding. Monitor renal and hepatic function. No anticoagulation due to active GI bleeding. Continue antibiotics if indicated for pneumonia. Consults:?IR, GI, Nephrology, Critical Care. Stable on transfer to higher level of care Patient Condition: Stable Time Spent with Patient Time attestation: Total time spent providing and/or coordinating transfer services:
== END 2025-01-19 16:49 | disposition short-term general hospital (02) | DRG 870 ==
LOC: ANHED 15:13 → ANHICU 17:34 → ANHCPC 01-18 08:26 → ANHICU 01-21 08:36
PROVIDERS: Internal Medicine; Internal Medicine Gastroenterology; Student in an Organized Health Care Education/Training Program; Admitting Provider Family Medicine; Emergency Provider Emergency Medicine; PCP Internal Medicine Infectious Disease; Visit Provider Internal Medicine
PROC: 0DJ08ZZ Inspection of Upper Intestinal Tract, Via Natural or Artificial Opening Endoscopic (ICD-10-PCS; principal; 2025-01-16 14:30)
DX: A41.9 Sepsis, unspecified organism (principal); J96.21 Acute and chronic respiratory failure with hypoxia; R65.21 Severe sepsis with septic shock; K26.4 Chronic or unspecified duodenal ulcer with hemorrhage; J15.1 Pneumonia due to Pseudomonas; K72.00 Acute and subacute hepatic failure without coma; J96.12 Chronic respiratory failure with hypercapnia; J44.0 Chronic obstructive pulmonary disease with (acute) lower respiratory infection; I50.32 Chronic diastolic (congestive) heart failure; N17.9 Acute kidney failure, unspecified; J44.1 Chronic obstructive pulmonary disease with (acute) exacerbation; T17.590A Other foreign object in bronchus causing asphyxiation, initial encounter; D62 Acute posthemorrhagic anemia; K76.6 Portal hypertension; F17.210 Nicotine dependence, cigarettes, uncomplicated; Z99.81 Dependence on supplemental oxygen; I48.91 Unspecified atrial fibrillation; F14.90 Cocaine use, unspecified, uncomplicated; F12.90 Cannabis use, unspecified, uncomplicated; E87.5 Hyperkalemia; Z20.822 Contact with and (suspected) exposure to COVID-19; J43.9 Emphysema, unspecified; Z66 Do not resuscitate; K29.70 Gastritis, unspecified, without bleeding; N28.89 Other specified disorders of kidney and ureter; F31.9 Bipolar disorder, unspecified; Z91.199 Patient's noncompliance with other medical treatment and regimen due to unspecified reason; Z79.01 Long term (current) use of anticoagulants
CPT/HCPCS: 31500; 36415; 36430; 36600; 70450; 71045; 71250; 71275; 74176; 74177; 76705; 76775; 80053; 80074; 80202; 80307; 81001; 82077; 82140; 82375; 82550; 82570; 82805; 82948; 83036; 83050; 83605; 83690; 83735; 83880; 84100; 84133; 84145; 84300; 84443; 84478; 84484; 85014; 85018; 85025; 85027; 85055; 85610; 85730; 85999; 86140; 86850; 86900; 86901; 86923; 87040; 87070; 87205; 87449; 87637; 87641; 87899; 93005; 93306; 94002; 94003; 94640; 94669; 96361; 96365; 96367; 96375; 99291; A9270; C1751; J0168; J0282; J0692; J1171; J1644; J1720; J1836; J1938; J2003; J2060; J2250; J2312; J2470; J2704; J2919; J3010; J3373; J3480; J7030; J7050; J7060; J7120; J7639; P9016; P9041; P9045; P9047; Q9967